=== PATIENT | female | born 1965 | race Caucasian/White ===

== ENCOUNTER → 2017-09-27 | Outpatient (CLI) | payer BC | END | disposition home or self-care (01) | LOC: C.PAPS 14:35 | PROVIDERS: ATTEND Obstetrics & Gynecology | DX: Z01.419 Encounter for gynecological examination (general) (routine) without abnormal findings (principal) ==

== ENCOUNTER 2023-09-24 08:58 | Inpatient (IN) ==
[2023-09-24] MEDS ORDERED: HYDROmorphone INJ 1 MG/ML SYRINGE IV PRN (09:33)
[2023-09-24] MEDS ORDERED: ONDANSETRON INJ 2 MG/ML 2 ML VIAL IV STA ×2 (09:33→12:37)
[2023-09-24] MEDS ORDERED: SODIUM CHLORIDE 0.9% 1,000 ML IV ONE ×2 (09:39→12:37)
[2023-09-24 09:46] LABS: Basophils # (auto) 0.05 K/uL (0.00-0.20); Basophils % (auto) 0.3 %; Eosinophils # (auto) 0.07 K/uL (0.00-0.50); Eosinophils % (auto) 0.5 %; Hematocrit (blood only) 39.1 % (37.0-47.0); Hemoglobin 12.7 g/dl (12.0-16.0); Immature Granulocytes # (auto) 0.03 K/uL (0.01-0.20); Immature Granulocytes % (auto) 0.2 %; Lymphocytes % (auto) 9.7 %; Mean Corpuscular Hemoglobin 29.7 pg (25.0-34.0); Mean Corpuscular Hgb Conc 32.5 g/dL (32.0-36.0); Mean Corpuscular Volume 91.6 fL (80.0-100.0); Mean Platelet Volume 9.7 fL (9.4-12.4); Monocytes # (auto) 1.19 K/uL (0.11-0.59); Monocytes % (auto) 8.3 %; Neutrophils # (auto) 11.64 K/uL (1.40-6.50); Platelet Count 303 K/uL (130-400); RDW Coefficient of Variation 12.3 % (11.5-14.5); RDW Standard Deviation 41.4 fL (36.4-46.3); Red Blood Count 4.27 M/uL (4.20-5.40); White Blood Count 14.38 K/ul (4.8-10.8)
--- NOTE | 2023-09-24 09:55 | Emergency Department Note ---
Impression & Plan Gastric perforation, Gastric wall thickening, Abnormal CT scan, Epigastric abdominal pain ED Provider Note Name: SEBASTIEN GARCIA Age: 57 Sex: Female Arrives Via: Walk-In Informant: Patient, ED Provider: Yves Jennings MD Chief Complaint: Abdominal pain Impression: As per impressions above Medical Decision Making: Pleasant 57-year-old female without significant past medical history arrives for evaluation of right upper quadrant/epigastric pain over the last several weeks to months. Rapidly worsening the last few days though. She has been on outpatient antacids for some time without improvement. On examination she has significant tenderness palpation of the right upper quadrant and epigastric region. An ultrasound is essentially unremarkable other than a questionable mass. A CT of the abdomen pelvis was obtained which reveals large amount of inflammation and fluid collection around the stomach. Discussed with radiologist most likely is a perforated gastric ulcer though could possibly be a mass. Fluid collection appears contained at this time. Discussed with general surgery and GI who advised hospitalization monitoring on IV antibiotics IV Protonix. I discussed this with patient she is comfortable with this plan. She was kept comfortable throughout stay with IV pain medications. She was given some IV fluids. At time of hospitalization I do not feel patient is septic. She is tachycardic from the amount of pain she is having a mild dehydration. I do not feel this is consistent with severe sepsis or septic shock. Triage/Nursing Notes reviewed by Me Differential:Cholecystitis, choledocholithiasis, pancreatitis, gastric ulcer, ischemia, perforation, aortic pathology, DVT amongst many other pathologies considered Vital Signs: reviewed and remarkable for mild tachycardia Interventions: Normal saline bolus 1 L IV x2, Zosyn IV, Dilaudid IV x2, pantoprazole 80 mg IV, zofran IV Labs:ED labs Reviewed by me and remarkable for mildly elevated white blood cell count Imaging:CT of the abdomen pelvis with IV contrast. As per my informal patient there is a fluid collection next to the stomach with significant surrounding inflammatory changes. There is no free air appreciated or free fluid throughout the abdomen. There is no evidence of bowel obstruction. Radiologist confirmed findings and note concern for possible mass versus perforated gastric ulcer. EKG:As per my interpretation. Indication epigastric pain. Sinus tach at 106 bpm without ectopy nor ischemia. QTc of 451. There are no previous EKGs for comparison Cardiac/Tele Monitoring: Cardiac Monitoring: An Order was placed for continuous cardiac monitoring. The monitor shows a rate of 90 with a normal sinus rhythm. Consults:Dr Bae Gen Surg advised GI evaluation. Dr. Reyes of gastroenterology advised hospitalization antibiotics and IV Protonix. Dr. Alvarez hospitalist consulted for further management. Plan: Disposition:Hospitalization. Condition: Good History of Present Illness: 57-year-old female arrives for evaluation of abdominal pain. Patient states that she had several months of gradually worsening epigastric right upper quadrant abdominal pain. Over the last few days/weeks significant worsening. Associated with nausea vomiting, mild diarrhea, increasing pain. Patient notes she was seen at [facility] several weeks ago for abdominal pain and ultrasound at that point was negative. She had a heart catheterization 2 months ago for abnormal cardiac work-up. Fortunately heart catheterization was negative for any evidence of significant atherosclerosis. Patient has been using nausea medicine and antacids regularly for the last 2 weeks without improvement. Family has a significant history of gallbladder dysfunction and infections. Past Medical History: No significant past medical history Home Medications: Antacid and Zofran medication Allergies: No known drug allergy Vitals:Blood Pressure: 131/84, Pulse 107, RR 20, T 36.9C, O2 98% on RA Physical Exam: GENERAL: Patient is uncomfortable appearing and in moderate distress. RESPIRATORY: No dyspnea. Clear to auscultation and equal bilaterally. CARDIOVASCULAR: Tachy.No murmur appreciated. GASTROINTESTINAL: Moderate right upper quadrant tenderness palpation with some guarding. Mild epigastric tenderness palpation. No rebound or peritonitis. EXTREMITIES: Normal motion all extremities, no cyanosis, no edema. NEUROLOGIC: Alert and oriented. No focal neurologic deficits appreciated SKIN: No rash, no jaundice, no diaphoresis. PSYCH: Appropriate GCS: 15 ED Course: Times/Reassessments: Patient is vastly improved with IV pain medications and fluids. Heart rate is come down nicely. She is breathing comfortably. She is not having any fevers or chills. Patient is on board for plan for admission. She is aware of the likely perforation but the chance that there may be some sort of gastric mass involved as well. Yves Jennings MD Past Med/Surg History Medical History HTN (hypertension) Surgical History History of cardiac catheterization 07/2023. [facility] [place] Family History Mother Hypertension Coronary heart disease fatal OR age 60 Social History Smoking Status: Never smoker Hx Alcohol Use: Yes Alcohol type: hard liquor Hx Substance Use: No Preferred Language: Gabonese Communication Ability: Effective Vocational Psychologist Required: No Beliefs That Will Affect Care: None Current Living Situation: Spouse Feels Safe at Home: Yes Assistive Devices: Glasses Allergies Allergies Allergy/AdvReac Type Severity Reaction Status Date / Time Sulfa (Sulfonamide Allergy Unknown Unknown Unverified 09/24/23 10:58 Antibiotics) Home Meds Home Medications Medication Instructions Recorded Confirmed ascorbic acid (vitamin C) 500 mg 500 mg PO DAILY 09/24/23 09/24/23 capsule,extended release (Vitamin C) aspirin 81 mg tablet 81 mg PO DAILY 09/24/23 09/24/23 cholecalciferol (vitamin D3) 50 50 mcg PO DAILY 09/24/23 09/24/23 mcg (2,000 unit) tablet (Vitamin D3) losartan 50 mg tablet 50 mg PO QAM 09/24/23 09/24/23 metoprolol succinate 25 mg 25 mg PO HS 09/24/23 09/24/23 tablet,extended release 24 hr ondansetron 8 mg disintegrating 8 mg PO Q8H PRN NAUSEA/VOMITING 09/24/23 09/24/23 tablet zinc 100 mg tablet 100 mg PO DAILY 09/24/23 09/24/23 Results & Data (ED) Vital Signs Vital Signs - 24 hr 09/24/23 09:05 09/24/23 09:37 09/24/23 09:52 Temperature 36.9 C Temperature Source Temporal Artery Scan Pulse Rate 118 H 107 H Respiratory Rate 20 Respiratory Effort / Characteristics Non-Labored Spontaneous Respiratory Depth Normal Respiratory Pattern Regular Blood Pressure 131/84 Blood Pressure Mean 99 Blood Pressure Position Sitting Pulse Oximetry 98 98 Oxygen Delivery Method Room Air Room Air Sepsis Recent Fever Within 48 Hours No Sepsis New/Unexplained Change in Mental Status No Sepsis Action Taken by Nursing No Action Required Laboratory Data 09/25/23 04:49 09/25/23 04:49 Lab Results 09/24/23 Range/Units 09:34 WBC 14.38 H (4.8-10.8) K/ul RBC 4.27 (4.20-5.40) M/uL Hgb 12.7 (12.0-16.0) g/dl Hct 39.1 (37.0-47.0) % MCV 91.6 (80.0-100.0) fL MCH 29.7 (25.0-34.0) pg MCHC 32.5 (32.0-36.0) g/dL RDW Std Deviation 41.4 (36.4-46.3) fL RDW Coeff of Brenton 12.3 (11.5-14.5) % Plt Count 303 (130-400) K/uL MPV 9.7 (9.4-12.4) fL Immature Gran % (Auto) 0.2 % Neut % (Auto) 81.0 % Lymph % (Auto) 9.7 % Will % (Auto) 8.3 % Eos % (Auto) 0.5 % Baso % (Auto) 0.3 % Neut # (Auto) 11.64 H (1.40-6.50) K/uL Lymph # (Auto) 1.40 (1.20-3.40) K/uL Will # (Auto) 1.19 H (0.11-0.59) K/uL Eos # (Auto) 0.07 (0.00-0.50) K/uL Baso # (Auto) 0.05 (0.00-0.20) K/uL Immature Gran # (Auto) 0.03 (0.01-0.20) K/uL Sodium 136 (136-145) mmol/L Potassium 3.9 (3.5-5.1) mmol/L Chloride 101 (98-107) mmol/L Carbon Dioxide 22 (21-32) mmol/L Anion Gap 13 H (3-11) BUN 13 (6-23) mg/dl Creatinine 0.84 (0.6-1.2) mg/dl Est Cr Clr Drug Dosing 92.4 ml/min Est GFR ( Amer) 89.4 ml/min Est GFR (Non-Af Amer) 77.2 ml/min BUN/Creatinine Ratio 15.5 (10-20) Glucose 82 (70-99(Fasting)) mg/dl Calcium 9.4 (8.6-10.3) mg/dl Total Bilirubin 0.6 (0.2-1.0) mg/dl AST 24 (13-39) U/L ALT 25 (7-52) U/L Alkaline Phosphatase 97 (34-104) U/L Total Protein 7.9 (6.0-8.3) gm/dl Albumin 3.9 (3.4-5.0) gm/dl Globulin 4.0 (2.5-4.0) gm/dl Albumin/Globulin Ratio 1.0 (0.9-2) Lipase 9 L (11-82) U/L Administered Medications Hydromorphone HCl (Hydromorphone Inj 0.5 Mg/0.5 Ml Syr) 0.5 mg IV Q6H PRN PRN Reason: Moderate Pain (Scale 4, 5, 6) Stop: 10/08/23 17:47 Last Admin: 09/25/23 06:08 Dose: 0.5 mg Documented By: RONA Acetaminophen (Ofirmev) 1,000 mg in 100 mls @ 400 mls/hr IV Q8H PRN PRN Reason: Pain or Fever Stop: 09/27/23 17:47 Last Infusion: 09/25/23 00:20 Dose: Infused Documented By: Admin: 09/24/23 23:45 Dose: 400 mls/hr Documented By: RONA Dextrose/Sodium Chloride (D5w And Nss) 1,000 mls @ 80 mls/hr IV .[id number] MICHAELLE Stop: 09/25/23 18:47 Last Admin: 09/25/23 06:21 Dose: 80 mls/hr Documented By: Infusion: 09/25/23 06:21 Dose: Infused Documented By: Admin: 09/24/23 18:40 Dose: 80 mls/hr Documented By: ROOSEVELT Pantoprazole Sodium 40 mg/ (Dextrose) 100 mls @ 20 mls/hr IV Q5H MICHAELLE Stop: 10/24/23 17:47 Last Admin: 09/25/23 14:10 Dose: 8 mg/hr, 20 mls/hr Documented By: Infusion: 09/25/23 13:32 Dose: Infused Documented By: Admin: 09/25/23 08:32 Dose: 8 mg/hr, 20 mls/hr Documented By: Infusion: 09/25/23 08:32 Dose: Infused Documented By: Admin: 09/25/23 03:40 Dose: 8 mg/hr, 20 mls/hr Documented By: Infusion: 09/25/23 03:40 Dose: Infused Documented By: Admin: 09/25/23 00:06 Dose: 8 mg/hr, 20 mls/hr Documented By: Infusion: 09/24/23 23:57 Dose: Infused Documented By: Admin: 09/24/23 18:57 Dose: 8 mg/hr, 20 mls/hr Documented By: ROOSEVELT Piperacillin Sod/Tazobactam (Sod 4.5 gm/ Dextrose) 100 mls @ 25 mls/hr IV Q8H MICHAELLE; Protocol Stop: 10/04/23 17:47 Last Infusion: 09/25/23 15:13 Dose: Infused Documented By: Admin: 09/25/23 11:18 Dose: 25 mls/hr Documented By: Infusion: 09/25/23 07:46 Dose: Infused Documented By: Admin: 09/25/23 03:40 Dose: 25 mls/hr Documented By: Infusion: 09/25/23 01:12 Dose: Infused Documented By: Admin: 09/24/23 20:58 Dose: 25 mls/hr Documented By: RONA Losartan Potassium (Losartan Potassium 50 Mg Tab) 50 mg PO QAM MICHAELLE Stop: 10/25/23 08:59 Last Admin: 09/25/23 08:32 Dose: 50 mg Documented By: BEVERLY Metoprolol Succinate (Metoprolol Succ 25mg Ext Rel Tab) 25 mg PO HS [facility] Stop: 10/24/23 20:59 Last Admin: 09/24/23 21:07 Dose: 25 mg Documented By: RONA Ondansetron HCl (Ondansetron Inj 2 Mg/Ml 2 Ml Vial) 4 mg IV Q6H PRN PRN Reason: Nausea Stop: 10/24/23 17:47 Last Admin: 09/24/23 21:00 Dose: 4 mg Documented By: RONA Discontinued Medications Hydromorphone HCl (Hydromorphone Inj 1 Mg/Ml Syringe) 1 mg IV Q15M PRN PRN Reason: Pain Stop: 10/08/23 09:32 Last Admin: 09/24/23 10:02 Dose: 1 mg Documented By: KELLY Co-signed By: AM Hydromorphone HCl (Hydromorphone Inj 1 Mg/Ml Syringe) 1 mg IV NOW STA Stop: 09/24/23 12:38 Last Admin: 09/24/23 12:48 Dose: 1 mg Documented By: ACC Sodium Chloride (Nss) 1,000 mls @ 999 mls/hr IV .Q1H1M ONE Stop: 09/24/23 10:39 Last Infusion: 09/24/23 11:59 Dose: Infused Documented By: Admin: 09/24/23 10:02 Dose: 999 mls/hr Documented By: KELLY Co-signed By: AM Sodium Chloride (Nss) 1,000 mls @ 999 mls/hr IV .Q1H1M ONE Stop: 09/24/23 13:37 Last Infusion: 09/24/23 14:02 Dose: Infused Documented By: Admin: 09/24/23 12:49 Dose: 999 mls/hr Documented By: ACC Pantoprazole Sodium 80 mg/ (Dextrose) 120 mls @ 480 mls/hr IV ONE STA Stop: 09/24/23 12:59 Last Infusion: 09/24/23 14:37 Dose: Infused Documented By: Admin: 09/24/23 13:57 Dose: 480 mls/hr Documented By: ACC Piperacillin Sod/Tazobactam Sod (Zosyn) 4.5 gm in 100 mls @ 200 mls/hr IV NOW ONE Stop: 09/24/23 13:19 Last Infusion: 09/24/23 14:02 Dose: Infused Documented By: Admin: 09/24/23 13:17 Dose: 200 mls/hr Documented By: ACC Ioversol (Optiray 320 100ml) 88 ml IV ONCE ONE Stop: 09/24/23 11:54 Last Admin: 09/24/23 11:53 Dose: 88 ml Documented By: JON Ondansetron HCl (Ondansetron Inj 2 Mg/Ml 2 Ml Vial) 4 mg IV NOW STA Stop: 09/24/23 09:34 Last Admin: 09/24/23 10:02 Dose: 4 mg Documented By: KELLY Co-signed By: SAM Ondansetron HCl (Ondansetron Inj 2 Mg/Ml 2 Ml Vial) 4 mg IV NOW STA Stop: 09/24/23 12:38 Last Admin: 09/24/23 12:48 Dose: 4 mg Documented By: ACC Discharge Plan Visit Data Chief Complaint: Abdominal Pain Stated Complaint: ABD PAIN,NAUSEA,VOMITING,HX GALLBLADDER ISSUES ED Provider: Yves Jennings ED Midlevel Provider: Jerri Sanchez Discharge Problem: Gastric perforation, Gastric wall thickening, Abnormal CT scan, Epigastric abdominal pain Patient Disposition: Admitted As Inpatient Discharge Instructions Interventions: ED Discharge Assessment Last Done: 09/24/23 18:41
[2023-09-24 10:04] LABS: Albumin Level 3.9 gm/dl (3.4-5.0); BUN Creatinine Ratio 15.5 (10-20); Bilirubin,Total 0.6 mg/dl (0.2-1.0); Calcium 9.4 mg/dl (8.6-10.3); Creatinine Clr Calc Pharmacy 92.4 ml/min; Est GFR (African American) 89.4 ml/min; Est GFR (Non-African American) 77.2 ml/min; Potassium 3.9 mmol/L (3.5-5.1); Total Protein 7.9 gm/dl (6.0-8.3)
--- NOTE | 2023-09-24 10:29 | Emergency Department Note ---
ED Visit Note I personally performed a history and examined the patient in conjunction with Dr. Jennings. Additional information regarding the history, physical, assessment, and plan were discussed with supervising attending physician and are noted in their ED visit note. . Resident Activity Tracking Resident Involvement: Resident Care Provided Care Provided: Adult ED
--- NOTE | 2023-09-24 11:10 | Ultrasound Report ---
US gallbladder CLINICAL HISTORY: Abdominal pain. Rutherford sign positive. COMPARISON STUDY: No previous studies for comparison. FINDINGS: Liver is sonographically normal. There is borderline dilatation of the common bile duct, me asuring 7 mm. No intrahepatic biliary ductal dilatation is identified. There are no gallstones. There is no gallbladder wall thickening. No sonographic Rutherford sign was elicited. The gallbladder is mildl y distended. Pancreatic body is normal. Head and tail are obscured. There is a hypoechoic focus anter ior to the pancreas. This measures approximately 7.6 cm in transverse dimension. IMPRESSION: 1. No gallstones. No evidence for acute cholecystitis. 2. Borderline dilatation of the common bile duct which could be correlated with liver function tests. 3. Hypoechoic focus anterior to the pancreas measuring approximately 7.6 cm in transverse dimension. This may be artifactual and represent bowel or the stomach. However, a CT of the abdomen with IV cont rast to exclude a mass is recommended. ACT 112: Negative or not required by law. Electronically signed by: Kike Gavin M.D. 09/24/2023 11:08 AM
[2023-09-24] MEDS ORDERED: OPTIRAY 320 100ml IV ONE (11:53)
--- NOTE | 2023-09-24 12:15 | CT Scan Report ---
CT OF THE ABDOMEN WITH IV CONTRAST CLINICAL HISTORY: Abnormal right upper quadrant ultrasound. Evaluate for pancreatic mass. COMPARISON STUDY: Right upper quadrant ultrasound performed earlier today. TECHNIQUE: Axial images of the abdomen were obtained following intravenous injection of 88 cc of Opti ray 320 IV. Automated exposure control was utilized for the study. A dose lowering technique was uti lized adhering to the principles of ALARA. FINDINGS: Lung bases are unremarkable. No pneumatosis, free air or portal venous gas is present. The liver, spleen, adrenal glands, right kidney and pancreas are normal. A fat-containing 1.1 cm lesion w ithin the upper pole the left kidney represents an angiomyolipoma. There is no hydronephrosis. There is no biliary or pancreatic ductal dilatation. The caliber and wall thickness of visualized small and large bowel are normal. Note is made of significant wall thickening of the gastric antrum and pyloru s with apparent shouldering. There is moderate adjacent inflammation extending into the omentum. Ther e is a multiloculated rim-enhancing 4 x 3.8 cm density along the inferior aspect of the distal stomac h on axial image 143 of 221. There is no extraluminal gas. No additional fluid collections are presen t. There is a prominent mitul hepatis lymph node on image 91 measures 1.9 x 1.1 cm. A few small lymph nodes inferior to the stomach are present. Major vasculature is patent. IMPRESSION: 1. Significant wall thickening of the gastric antrum and pylorus with apparent shouldering. A gastric neoplasm is the diagnosis of exclusion. However, gastritis could have a similar imaging appearance. Moderate perigastric inflammation extending into the mesentery and a 4 x 3.8 cm multiloculated rim-en hancing collection. These findings suggest a contained perforation with developing abscess formation which corresponds to the finding on ultrasound. No extraluminal gas. GI or Surgical consultation is r ecommended. 2. Indeterminate slightly enlarged mitul hepatis lymph node. A few prominent perigastric lymph nodes which may be reactive but should be assessed on follow-up exams. 3. No pancreatic abnormality. ACT 112: Negative or not required by law. Electronically signed by: Kike Gavin M.D. 09/24/2023 12:13 PM
[2023-09-24] MEDS ORDERED: HYDROmorphone INJ 1 MG/ML SYRINGE IV STA (12:37)
[2023-09-24] MEDS ORDERED: PANTOprazole 80 MG in DEXTROSE 5% 100 ML IV STA (12:45)
[2023-09-24] MEDS ORDERED: PIPERACILLIN/TAZOBACTAM 4.5 GM/100 ML BAG IV ONE (12:50)
--- NOTE | 2023-09-24 13:23 | History & Physical Report ---
Date of Service September 24, 2023 Assessment & Plan (1) Abdominal pain: (2) Gastric wall thickening: (3) Gastric perforation: Plan: Gastric perforation with abscess formation. DDX: gastric ulcer with perforation, gastric neoplasm In ER patient afebrile, HR 118 down to 105 after 2L NSS, BP stable WBC: 14 with left shift In ER given zosyn, Protonix bolus, Zofran, Dilaudid Blood cultures pending. Were obtained after initial antibiotics. IVF NPO Zosyn General surgery consult. ER physician spoke with Dr Bae, recommends initial conservative treatment, possible need for exploratory surgery GI consult, ER physician spoke with vocational director CBC, CMP in am (4) HTN (hypertension): Plan: Continue losartan, metoprolol succinate DVT Prophylaxis SCDs Full Code as per discussion with pt Follows with Jorge Luis Gil PA-C in [place] for routine care Pt was seen and care coordinated with Dr Alvarez. See addendum History of Present Illness Chief Complaint: Abdominal pain Primary Care Provider: Jorge Luis Jeffery Patient is 57 y/o F with PMH HTN presented to ER with c/o abdominal pain. History obtained from patient and patient's spouse. Patient had episode of RUQ abdominal pain, nausea and vomiting in 07/2023 and was seen at [facility] ER and she reports a "negative" RUQ ultrasound. States was started on antacids and symptoms resolved in approximately 3 days. Had another episode of RUQ abdominal pain about a month ago that self resolved. Patient states for past 10 days has had almost constant abdominal discomfort and nausea. Pain sometimes to epigastric region but mostly to RUQ. Pain worsened the past couple of days and is aggravated with any type of movement. Yesterday and today at 02:00 had episodes of vomiting brown color emesis. No further vomiting since. Has had limited oral intake secondary to nausea and pain. Has not been taking temperature. Freedom cold a couple of days ago but denies diaphoresis or chills recently. Has been taking Tylenol for abdominal pain with minimal relief. Saw PCP recently and was set up to have HIDA scan in near future for suspected gallbladder dysfunction. Reports was previously drinking ETOH almost daily. Past several months drinking 2 drinks of liquor 2-3 days a week. Drinks 2 cups coffee daily. Denies using NSAIDs. Takes 81mg aspirin daily. Patient states in 07/2023 had cardiac cath for abnormal stress test. She states the cardiac cath showed nonobstructive arteries. Denies hematemesis, melena, hematochezia, coffee ground emesis, diarrhea, FELIX, dizziness, syncope, neck pain, CP, SOB, palpitations, cough, sore throat, rhinorrhea, extremity weakness, extremity edema, rashes, urinary symptoms. Allergies Allergy/AdvReac Type Severity Reaction Status Date / Time Sulfa (Sulfonamide Allergy Unknown Unknown Unverified 09/24/23 10:58 Antibiotics) Home Medications Medication Instructions Recorded Confirmed Type ascorbic acid (vitamin C) 500 mg 500 mg PO DAILY 09/24/23 09/24/23 History capsule,extended release (Vitamin C) aspirin 81 mg tablet 81 mg PO DAILY 09/24/23 09/24/23 History cholecalciferol (vitamin D3) 50 50 mcg PO DAILY 09/24/23 09/24/23 History mcg (2,000 unit) tablet (Vitamin D3) losartan 50 mg tablet 50 mg PO QAM 09/24/23 09/24/23 History metoprolol succinate 25 mg 25 mg PO HS 09/24/23 09/24/23 History tablet,extended release 24 hr ondansetron 8 mg disintegrating 8 mg PO Q8H PRN NAUSEA/VOMITING 09/24/23 09/24/23 History tablet zinc 100 mg tablet 100 mg PO DAILY 09/24/23 09/24/23 History Past Med/Surg History Medical History HTN (hypertension) Surgical History History of cardiac catheterization 07/2023. [facility] [place] Family History Mother Hypertension Coronary heart disease fatal [place] age 60 Social History Smoking Status: Never smoker Hx Alcohol Use: Yes Hx Substance Use: No Preferred Language: Citizen Of [place] Feels Safe at Home: Yes Review of Systems Review of Systems: All systems reviewed & are unremarkable except as noted in HPI & below Physical Exam Physical Exam: General: no distress currently, non-toxic appearing, overweight female Head: normocephalic, atraumatic Eyes: conjunctiva non-injected, anicteric ENT: normal inspection external ears, nose, mucous membranes mildly dry Neck: supple, trachea midline Lungs: clear, no respiratory distress, no wheezing/rhonchi/rales CV: tachycardia, rate 104, no murmur, no pretibial edema Abd: normal BS, soft, +tenderness to palpation RUQ with guarding, +mild tenderness to palpation epigastric without guarding Ext: no cyanosis, no calf tenderness Neuro: A&O x 3, no focal deficits noted, normal affect Skin: warm, dry Results & Data Results & Data Vital Signs (Past 12 Hours) Vital Signs Temp Pulse Pulse Resp BP BP Pulse Ox 09/24/23 12:18 105 H 16 144/90 H 94 09/24/23 12:00 105 H 15 95 09/24/23 11:00 100 H 17 95 09/24/23 10:01 128/84 09/24/23 10:01 99 H 18 96 09/24/23 10:00 98 H 20 96 09/24/23 09:52 107 H 09/24/23 09:37 98 09/24/23 09:30 105 H 17 96 09/24/23 09:30 122/76 09/24/23 09:27 107 H 20 96 09/24/23 09:27 121/99 09/24/23 09:05 36.9 C 118 H 20 131/84 98 O2 Del Method 09/24/23 12:18 Room Air 09/24/23 12:00 09/24/23 11:00 09/24/23 10:01 09/24/23 10:01 09/24/23 10:00 09/24/23 09:52 09/24/23 09:37 Room Air 09/24/23 09:30 09/24/23 09:30 09/24/23 09:27 09/24/23 09:27 09/24/23 09:05 Room Air Laboratory Results Short CBC 09/24/23 Range/Units 09:34 WBC 14.38 H (4.8-10.8) K/ul Hgb 12.7 (12.0-16.0) g/dl Hct 39.1 (37.0-47.0) % Plt Count 303 (130-400) K/uL BMP 09/24/23 09:34 Sodium 136 Potassium 3.9 Chloride 101 Carbon Dioxide 22 BUN 13 Creatinine 0.84 Glucose 82 Calcium 9.4 Liver Function 09/24/23 Range/Units 09:34 Total Bilirubin 0.6 (0.2-1.0) mg/dl AST 24 (13-39) U/L ALT 25 (7-52) U/L Alkaline Phosphatase 97 (34-104) U/L Albumin 3.9 (3.4-5.0) gm/dl Diagnostic Findings Gallbladder Ultrasound 09/24/23 09:33 US gallbladder CLINICAL HISTORY: Abdominal pain. Rutherford sign positive. COMPARISON STUDY: No previous studies for comparison. FINDINGS: Liver is sonographically normal. There is borderline dilatation of the common bile duct, measuring 7 mm. No intrahepatic biliary ductal dilatation is identified. There are no gallstones. There is no gallbladder wall thickening. No sonographic Rutherford sign was elicited. The gallbladder is mildly distended. Pancreatic body is normal. Head and tail are obscured. There is a hypoechoic focus anterior to the pancreas. This measures approximately 7.6 cm in transverse dimension. IMPRESSION: 1. No gallstones. No evidence for acute cholecystitis. 2. Borderline dilatation of the common bile duct which could be correlated with liver function tests. 3. Hypoechoic focus anterior to the pancreas measuring approximately 7.6 cm in transverse dimension. This may be artifactual and represent bowel or the stomach. However, a CT of the abdomen with IV contrast to exclude a mass is recommended. ACT 112: Negative or not required by law. Electronically signed by: Kike Gavin M.D. 09/24/2023 11:[address] 09/24/23 11:15 CT OF THE ABDOMEN WITH IV CONTRAST CLINICAL HISTORY: Abnormal right upper quadrant ultrasound. Evaluate for pancreatic mass. COMPARISON STUDY: Right upper quadrant ultrasound performed earlier today. TECHNIQUE: Axial images of the abdomen were obtained following intravenous injection of 88 cc of Optiray 320 IV. Automated exposure control was utilized for the study. A dose lowering technique was utilized adhering to the principles of ALARA. FINDINGS: Lung bases are unremarkable. No pneumatosis, free air or portal venous gas is present. The liver, spleen, adrenal glands, right kidney and pancreas are normal. A fat-containing 1.1 cm lesion within the upper pole the left kidney represents an angiomyolipoma. There is no hydronephrosis. There is no biliary or pancreatic ductal dilatation. The caliber and wall thickness of visualized small and large bowel are normal. Note is made of significant wall thickening of the gastric antrum and pylorus with apparent shouldering. There is moderate adjacent inflammation extending into the omentum. There is a multiloculated rim-enhancing 4 x 3.8 cm density along the inferior aspect of the distal stomach on axial image 143 of 221. There is no extraluminal gas. No additional fluid collections are present. There is a prominent mitul hepatis lymph node on image 91 measures 1.9 x 1.1 cm. A few small lymph nodes inferior to the stomach are present. Major vasculature is patent. IMPRESSION: 1. Significant wall thickening of the gastric antrum and pylorus with apparent shouldering. A gastric neoplasm is the diagnosis of exclusion. However, gastritis could have a similar imaging appearance. Moderate perigastric inflammation extending into the mesentery and a 4 x 3.8 cm multiloculated rim- enhancing collection. These findings suggest a contained perforation with developing abscess formation which corresponds to the finding on ultrasound. No extraluminal gas. GI or Surgical consultation is recommended. 2. Indeterminate slightly enlarged mitul hepatis lymph node. A few prominent p erigastric lymph nodes which may be reactive but should be assessed on follow-up exams. 3. No pancreatic abnormality. ACT 112: Negative or not required by law. Electronically signed by: Kike Gavin M.D. 09/24/2023 12:13 PM Supervising Physician Co-Signing Physician Notes Attending addendum: The patient was seen and examined in emergency room in presence of the She has been complaining of epigastric/right upper quadrant pain for about 1 month She has had repeated visits to the family medicine and was told that may have gallbladder disease/gallstones She is here today with increasing abdominal pain associated with nausea and vomiting No NSAID use except regular aspirin On examination Very anxious and is in pain which is reasonably controlled with IV pain medications Tachycardic with blood pressure on the upper side at 144/90 Chestclear to auscultate bilaterally HeartS1, S2 regular Abdomensoft, tender in the epigastrium and right upper quadrant without guarding and rigidity, bowel sound present Extremities negative for any edema Her admission labs, EKG and imaging studies reviewed Has gastric perforation likely secondary to gastric ulcer to rule out malignancy We will keep her n.p.o., pain medications and IV fluid and IV antibiotic Surgery and GI have been consulted Agree with assessment and plan as outlined above by ALISA Cerrato Dr
--- NOTE | 2023-09-24 14:10 | Surgery Consultation ---
Date of Consultation September 24, 2023 Assessment & Plan (1) Gastric mass: Assessment: Patient is a 57 years old female who presented to ED with a 2-month history epigastric and right upper quadrant pain associated with nausea and vomiting. Patient had a CT scan diagnosis of possible gastric neoplasm, possibl e with perforation containing abscess. size 4x3.8 cm, WBC 14,000. plan: Based on the patient history and physical exam CT scan finding, recommend residential treatment counselor GI for possible EGD biopsy gastric neoplasm to rule out gastric malignancy ulcer or mass. Patient needs transfer to higher level care of oncology surgeon consult if confirmed diagnosis gastric malignancy or patient condition getting worse. Start IV Zosyn. control pain. N.p.o.. IV fluid. Repeat the lab tomorrow. Conservative treatment now. Patient may need exploratory laparotomy if patient condition getting worse. Patient prefer go to a higher level care if her condition getting worse. pt and her Agreed with the plan. I answered all questions. Discussion with hospitalist who will admit the patient to the hospital. Thanks. History of Present Illness Reason for Consultation: abdominal pain Requesting Physician: Yves Love MD History of Present Illness CC: Abdominal pain HPI: Patient is a 57 years old female who presented to ED with 2 months history epigastric and right upper quadrant pain. Associated with some nausea and vomiting. Patient went to [facility] ER for epigastric pain in July this year. Patient had a study for gallbladder disease which was negative. And 2 weeks later patient saw her PCP. There was a total of the possible gallbladder attack. Over the last few weeks the patient felt the pain is gett ing worse. The pain is dull located epigastric and right upper quadrant area. There is some mild diarrhea. Patient denies vomiting any blood, No black stool, no fever, No chills, No back pain, no weight loss. Patient has a cardiac has cardiac cath for work up her chest pain 2 months ago, patient was negative. Patient had a ultrasound today which is negative for gallbladder disease. Patient had a CT scan of the abdomen + Pevlic today in the ER. IMPRESSION: 1. Significant wall thickening of the gastric antrum and pylorus with apparent shouldering. A gastric neoplasm is the diagnosis of exclusion. However, gastritis could have a similar imaging appearance. Moderate perigastric inflammation extending into the mesentery and a 4 x 3.8 cm multiloculated rim- enhancing collection. These findings suggest a contained perforation with developing abscess formation which corresponds to the finding on ultrasound. No extraluminal gas. GI or Surgical consultation is recommended. Allergies Allergy/AdvReac Type Severity Reaction Status Date / Time Sulfa (Sulfonamide Allergy Unknown Unknown Unverified 09/24/23 10:58 Antibiotics) Home Medications Medication Instructions Recorded Confirmed Type ascorbic acid (vitamin C) 500 mg 500 mg PO DAILY 09/24/23 09/24/23 History capsule,extended release (Vitamin C) aspirin 81 mg tablet 81 mg PO DAILY 09/24/23 09/24/23 History cholecalciferol (vitamin D3) 50 50 mcg PO DAILY 09/24/23 09/24/23 History mcg (2,000 unit) tablet (Vitamin D3) losartan 50 mg tablet 50 mg PO QAM 09/24/23 09/24/23 History metoprolol succinate 25 mg 25 mg PO HS 09/24/23 09/24/23 History tablet,extended release 24 hr ondansetron 8 mg disintegrating 8 mg PO Q8H PRN NAUSEA/VOMITING 09/24/23 09/24/23 History tablet zinc 100 mg tablet 100 mg PO DAILY 09/24/23 09/24/23 History Patient History Medical History (Updated 09/24/23 @ 14:26 by Tamara Bae MD) HTN (hypertension) Surgical History (Updated 09/24/23 @ 13:59 by Catherine Collier PA-C) History of cardiac catheterization 07/2023. PH [place] Family History (Updated 09/24/23 @ 13:58 by Catherine Collier PA-C) Mother Hypertension Coronary heart disease fatal [place] age 60 Social History Smoking Status: Never smoker Hx Alcohol Use: Yes Hx Substance Use: No Preferred Language: [place] Feels Safe at Home: Yes Review of Systems Constitutional: as per Subjective / HPI Eyes: as per Subjective / HPI Respiratory: as per Subjective / HPI Cardiovascular: Additional Comments: HTN Gastrointestinal: as per Subjective / HPI Genitourinary: as per Subjective / HPI Neurologic: as per Subjective / HPI Psychiatric: as per Subjective / HPI Endocrine: as per Subjective / HPI Hematologic / Lymphatic: as per Subjective / HPI Physical Exam Constitutional: comfortable at bed, no distress Eyes: PERRL, conjunctivae normal, anicteric sclerae Neck: trachea midline, no thyromegaly Respiratory: normal respiratory effort, lungs clear to auscultation Cardiovascular: RRR, no murmur, no edema Gastrointestinal (Abdomen): pt said she just got pain medicine. mild tenderness at RUQ are, no rebound pain, no distend, BS +. Musculoskeletal: no cyanosis or clubbing, extremities motor strength 5/5 Neurologic: patellar DTR's 2+ bilat, sensation intact Psychiatric: A+Ox3, euthymic affect Results & Data Vital Signs (Past 12 Hours) Vital Signs Temp Pulse Pulse Resp BP BP Pulse Ox 09/24/23 12:18 105 H 16 144/90 H 94 09/24/23 12:00 105 H 15 95 09/24/23 11:00 100 H 17 95 09/24/23 10:01 128/84 09/24/23 10:01 99 H 18 96 09/24/23 10:00 98 H 20 96 09/24/23 09:52 107 H 09/24/23 09:37 98 09/24/23 09:30 105 H 17 96 09/24/23 09:30 122/76 09/24/23 09:27 107 H 20 96 09/24/23 09:27 121/99 09/24/23 09:05 36.9 C 118 H 20 131/84 98 O2 Del Method 09/24/23 12:18 Room Air 09/24/23 12:00 09/24/23 11:00 09/24/23 10:01 09/24/23 10:01 09/24/23 10:00 09/24/23 09:52 09/24/23 09:37 Room Air 09/24/23 09:30 09/24/23 09:30 09/24/23 09:27 09/24/23 09:27 09/24/23 09:05 Room Air Laboratory Results Lab Results 09/24/23 Range/Units 09:34 WBC 14.38 H (4.8-10.8) K/ul RBC 4.27 (4.20-5.40) M/uL Hgb 12.7 (12.0-16.0) g/dl Hct 39.1 (37.0-47.0) % MCV 91.6 (80.0-100.0) fL MCH 29.7 (25.0-34.0) pg MCHC 32.5 (32.0-36.0) g/dL RDW Std Deviation 41.4 (36.4-46.3) fL RDW Coeff of [place] 12.3 (11.5-14.5) % Plt Count 303 (130-400) K/uL MPV 9.7 (9.4-12.4) fL Immature Gran % (Auto) 0.2 % Neut % (Auto) 81.0 % Lymph % (Auto) 9.7 % [place] % (Auto) 8.3 % Eos % (Auto) 0.5 % Baso % (Auto) 0.3 % Neut # (Auto) 11.64 H (1.40-6.50) K/uL Lymph # (Auto) 1.40 (1.20-3.40) K/uL [place] # (Auto) 1.19 H (0.11-0.59) K/uL Eos # (Auto) 0.07 (0.00-0.50) K/uL Baso # (Auto) 0.05 (0.00-0.20) K/uL Immature Gran # (Auto) 0.03 (0.01-0.20) K/uL Sodium 136 (136-145) mmol/L Potassium 3.9 (3.5-5.1) mmol/L Chloride 101 (98-107) mmol/L Carbon Dioxide 22 (21-32) mmol/L Anion Gap 13 H (3-11) BUN 13 (6-23) mg/dl Creatinine 0.84 (0.6-1.2) mg/dl Est Cr Clr Drug Dosing 92.4 ml/min Est GFR ( Amer) 89.4 ml/min Est GFR (Non-Af Amer) 77.2 ml/min BUN/Creatinine Ratio 15.5 (10-20) Glucose 82 (70-99(Fasting)) mg/dl Calcium 9.4 (8.6-10.3) mg/dl Total Bilirubin 0.6 (0.2-1.0) mg/dl AST 24 (13-39) U/L ALT 25 (7-52) U/L Alkaline Phosphatase 97 (34-104) U/L Total Protein 7.9 (6.0-8.3) gm/dl Albumin 3.9 (3.4-5.0) gm/dl Globulin 4.0 (2.5-4.0) gm/dl Albumin/Globulin Ratio 1.0 (0.9-2) Lipase 9 L (11-82) U/L Diagnostic Findings CT OF THE ABDOMEN WITH IV CONTRAST, 09/24/2023 CLINICAL HISTORY: Abnormal right upper quadrant ultrasound. Evaluate for pancreatic mass. COMPARISON STUDY: Right upper quadrant ultrasound performed earlier today. TECHNIQUE: Axial images of the abdomen were obtained following intravenous injection of 88 cc of Optiray 320 IV. Automated exposure control was utilized for the study. A dose lowering technique was utilized adhering to the principles of ALARA. FINDINGS: Lung bases are unremarkable. No pneumatosis, free air or portal venous gas is present. The liver, spleen, adrenal glands, right kidney and pancreas are normal. A fat-containing 1.1 cm lesion within the upper pole the left kidney represents an angiomyolipoma. There is no hydronephrosis. There is no biliary or pancreatic ductal dilatation. The caliber and wall thickness of visualized small and large bowel are normal. Note is made of significant wall thickening of the gastric antrum and pylorus with apparent shouldering. There is moderate adjacent inflammation extending into the omentum. There is a multiloculated rim-enhancing 4 x 3.8 cm density along the inferior aspect of the distal stomach on axial image 143 of 221. There is no extraluminal gas. No additional fluid collections are present. There is a prominent mitul hepatis lymph node on image 91 measures 1.9 x 1.1 cm. A few small lymph nodes inferior to the stomach are present. Major vasculature is patent. IMPRESSION: 1. Significant wall thickening of the gastric antrum and pylorus with apparent shouldering. A gastric neoplasm is the diagnosis of exclusion. However, gastritis could have a similar imaging appearance. Moderate perigastric inflammation extending into the mesentery and a 4 x 3.8 cm multiloculated rim- enhancing collection. These findings suggest a contained perforation with developing abscess formation which corresponds to the finding on ultrasound. No extraluminal gas. GI or Surgical consultation is recommended. 2. Indeterminate slightly enlarged mitul hepatis lymph node. A few prominent perigastric lymph nodes which may be reactive but should be assessed on follow- up exams. 3. No pancreatic abnormality. ACT 112: Negative or not required by law. US gallbladder 09/24/2023 CLINICAL HISTORY: Abdominal pain. Rutherford sign positive. COMPARISON STUDY: No previous studies for comparison. FINDINGS: Liver is sonographically normal. There is borderline dilatation of the common bile duct, measuring 7 mm. No intrahepatic biliary ductal dilatation is identified. There are no gallstones. There is no gallbladder wall thickening. No sonographic Rutherford sign was elicited. The gallbladder is mildly distended. Pancreatic body is normal. Head and tail are obscured. There is a hypoechoic focus anterior to the pancreas. This measures approximately 7.6 cm in transverse dimension. IMPRESSION: 1. No gallstones. No evidence for acute cholecystitis. 2. Borderline dilatation of the common bile duct which could be correlated with liver function tests. 3. Hypoechoic focus anterior to the pancreas measuring approximately 7.6 cm in transverse dimension. This may be artifactual and represent bowel or the stomach. However, a CT of the abdomen with IV contrast to exclude a mass is recommended. ACT 112: Negative or not required by law.
--- NOTE | 2023-09-24 15:23 | Gastrointestinal Consultation ---
Date of Consultation September 24, 2023 Assessment & Plan (1) Abdominal pain: (2) Abnormal CT scan: Plan abdominal pains with abnormal CT ddx includes neoplasm vs. severe gastritis and ulcer vs. contained perforation recs: --protonix IV 40 mg BID --supportive care,IVFs --antibiotics --patient is high risk for perforation at this time would defer EGD and plan to do as outpatient in 2 weeks. Thank you for allowing me to participate in the care of this patient History of Present Illness History of Present Illness 57 yo female with hx HTN here with epigastric abdominal pain and RUQ pain. She was in ER 07/2023 and took antacids and improved. She notes abdominal pains, nausea. Denies nsaid use, smoking, family hx gastric nor esophageal nor colon cancer. CT imaging shows gastritis/possible contained perforation with abscess of an ulcer vs. neoplasm. currently feeling better after receiving pain medicine. labs reviewed, Allergies Allergy/AdvReac Type Severity Reaction Status Date / Time Sulfa (Sulfonamide Allergy Unknown Unknown Unverified 09/24/23 10:58 Antibiotics) Home Medications Medication Instructions Recorded Confirmed Type ascorbic acid (vitamin C) 500 mg 500 mg PO DAILY 09/24/23 09/24/23 History capsule,extended release (Vitamin C) aspirin 81 mg tablet 81 mg PO DAILY 09/24/23 09/24/23 History cholecalciferol (vitamin D3) 50 50 mcg PO DAILY 09/24/23 09/24/23 History mcg (2,000 unit) tablet (Vitamin D3) losartan 50 mg tablet 50 mg PO QAM 09/24/23 09/24/23 History metoprolol succinate 25 mg 25 mg PO HS 09/24/23 09/24/23 History tablet,extended release 24 hr ondansetron 8 mg disintegrating 8 mg PO Q8H PRN NAUSEA/VOMITING 09/24/23 09/24/23 History tablet zinc 100 mg tablet 100 mg PO DAILY 09/24/23 09/24/23 History Patient History Medical History HTN (hypertension) Surgical History History of cardiac catheterization 07/2023. PH [facility] Family History Mother Hypertension Coronary heart disease fatal MS age 60 Social History Smoking Status: Never smoker Hx Alcohol Use: Yes Hx Substance Use: No Preferred Language: Ma[place] Feels Safe at Home: Yes Review of Systems Constitutional: no fever, no chills and no weight loss Eyes: as per Subjective / HPI Ear, Nose, Mouth, Throat: as per Subjective / HPI Respiratory: no dyspnea and no dyspnea on exertion Cardiovascular: no chest pain and no palpitations Gastrointestinal: as per Subjective / HPI Musculoskeletal: no joint pain and no swelling Integumentary: no rash and no lesions Neurologic: no numbness and no paresthesia Psychiatric: no depression and no anxiety Endocrine: no fatigue Hematologic / Lymphatic: no easy bleeding and no easy bruising Physical Exam Constitutional: WD/WN, vitals as above Eyes: EOM intact bilaterally Neck: normal visual inspection Respiratory: normal respiratory effort, lungs clear to auscultation Cardiovascular: RRR, no murmur, no edema Gastrointestinal (Abdomen): Inspection/Auscultation: abdomen normal to inspection; abdomen not distended Percussion/Palpation: abdomen soft; abdomen nontender and no hepatosplenomegaly Musculoskeletal: Head/Neck/Chest: normocephalic and head atraumatic Extremities: no cyanosis Skin: no rashes, warm and dry Neurologic: moves all extremities Psychiatric: Orientation: alert and cooperative Affect: euthymic affect Results & Data Vital Signs (Past 12 Hours) Vital Signs Temp Pulse Pulse Resp BP BP Pulse Ox 09/24/23 15:07 101 H 09/24/23 14:35 95 09/24/23 14:23 88 L 09/24/23 14:00 104 H 12 95 09/24/23 14:00 159/95 H 09/24/23 13:00 105 H 15 96 09/24/23 12:18 105 H 16 144/90 H 94 09/24/23 12:16 107 H 25 H 94 09/24/23 12:16 144/90 H 09/24/23 12:00 105 H 15 95 09/24/23 11:00 100 H 17 95 09/24/23 10:01 128/84 09/24/23 10:01 99 H 18 96 09/24/23 10:00 98 H 20 96 09/24/23 09:52 107 H 09/24/23 09:37 98 09/24/23 09:30 105 H 17 96 09/24/23 09:30 122/76 09/24/23 09:27 107 H 20 96 09/24/23 09:27 121/99 09/24/23 09:05 36.9 C 118 H 20 131/84 98 O2 Del Method O2 Flow Rate 09/24/23 15:07 09/24/23 14:35 Nasal Cannula 2 09/24/23 14:23 Room Air 09/24/23 14:00 09/24/23 14:00 09/24/23 13:00 09/24/23 12:18 Room Air 09/24/23 12:16 09/24/23 12:16 09/24/23 12:00 09/24/23 11:00 09/24/23 10:01 09/24/23 10:01 09/24/23 10:00 09/24/23 09:52 09/24/23 09:37 Room Air 09/24/23 09:30 09/24/23 09:30 09/24/23 09:27 09/24/23 09:27 09/24/23 09:05 Room Air PG Care Time/CCT Total # of Minutes Spent Total Time Spent with Patient: Total time spent is greater than 50% in coordination of care (as documented) at patient's floor/unit and/or counseling patient: Coding Level of Care Code 23354 IN/OBS CONSULT LVL 4,60M Diagnoses Abdominal pain R10.[address] scan R93.89
--- NOTE | 2023-09-24 15:28 | Electrocardiogram Report ---
Test Reason : Blood Pressure : / mmHG Vent. Rate : 106 BPM Atrial Rate : 106 BPM P-R Int : 200 ms QRS Dur : 084 ms QT Int : 340 ms P-R-T Axes : 033 -12 017 degrees QTc Int : 451 ms Sinus tachycardia Septal infarct , age undetermined Abnormal ECG No previous ECGs available Confirmed by Luis Carlos Kay ([id number]) on 09/24/2023 3:28:09 PM Referred By: REFERRED SELF Confirmed By:Luis Carlos Kay
[2023-09-24 16:41] LABS: Appearance Urine Clear (Clear); Bacteria Urine Automated Negative (Negative); Bilirubin Urine Negative (Negative); Blood Urine Negative (Negative); Color Urine Yellow; Epithelial Cell Urine Auto 20-30 /lpf (0-5); Glucose Urine UA Negative (Negative); Ketones Urine 4+ (Negative); Leukocyte Esterase Urine Negative (Negative); Nitrite Urine Negative (Negative); Protein Urine Trace (Negative); RBC Urine Automated 0-4 /hpf (0-4); Specific Gravity Urine > 1.045 (1.000-1.030); Urobilinogen Urine Negative (Negative); pH Urine 5.5 (4.5-7.5)
[2023-09-24] MEDS ORDERED: ONDANSETRON INJ 2 MG/ML 2 ML VIAL IV PRN (17:48)
[2023-09-24] MEDS: D5W AND NSS 1,000 ML IV SCH (18:40)
[2023-09-24] MEDS: PANTOprazole 40 MG in DEXTROSE 5% MINI-B 100 ML IV SCH (18:57)
[2023-09-24] MEDS: PIPERACILLIN/TAZOBACTAM 4.5 GM in DEXTROSE 5% MINI-B 100 ML IV SCH (20:58)
[2023-09-24] MEDS: METOPROLOL SUCC 25MG EXT REL TAB PO SCH (21:07)
[2023-09-24] MEDS: ACETAMINOPHEN 1,000 MG/100 ML VIAL IV PRN (23:45)
[2023-09-25] MEDS: PANTOprazole 40 MG in DEXTROSE 5% MINI-B 100 ML IV SCH ×6 (00:06→23:06)
[2023-09-25] MEDS: PIPERACILLIN/TAZOBACTAM 4.5 GM in DEXTROSE 5% MINI-B 100 ML IV SCH ×3 (03:40→18:42)
[2023-09-25 05:08] LABS: Basophils # (auto) 0.02 K/uL (0.00-0.20); Basophils % (auto) 0.2 %; Eosinophils # (auto) 0.15 K/uL (0.00-0.50); Eosinophils % (auto) 1.6 %; Hematocrit (blood only) 32.9 % (37.0-47.0); Hemoglobin 10.8 g/dl (12.0-16.0); Immature Granulocytes # (auto) 0.04 K/uL (0.01-0.20); Immature Granulocytes % (auto) 0.4 %; Lymphocytes # (auto) 1.32 K/uL (1.20-3.40); Lymphocytes % (auto) 14.2 %; Mean Corpuscular Hemoglobin 30.4 pg (25.0-34.0); Mean Corpuscular Hgb Conc 32.8 g/dL (32.0-36.0); Mean Corpuscular Volume 92.7 fL (80.0-100.0); Mean Platelet Volume 9.5 fL (9.4-12.4); Monocytes # (auto) 0.73 K/uL (0.11-0.59); Monocytes % (auto) 7.9 %; Neutrophils # (auto) 7.02 K/uL (1.40-6.50); Neutrophils % (auto) 75.7 %; Platelet Count 230 K/uL (130-400); RDW Standard Deviation 41.1 fL (36.4-46.3); Red Blood Count 3.55 M/uL (4.20-5.40); White Blood Count 9.28 K/ul (4.8-10.8)
[2023-09-25 05:36] LABS: Albumin Level 3.1 gm/dl (3.4-5.0); Bilirubin,Total 0.4 mg/dl (0.2-1.0); Calcium 8.3 mg/dl (8.6-10.3); Potassium 3.6 mmol/L (3.5-5.1)
[2023-09-25 05:42] LABS: Albumin Globulin Ratio 0.9 (0.9-2); BUN Creatinine Ratio 11.9 (10-20); Creatinine Clr Calc Pharmacy 115.9 ml/min; Est GFR (African American) 113.1 ml/min; Est GFR (Non-African American) 97.6 ml/min; Globulin 3.3 gm/dl (2.5-4.0); Total Protein 6.4 gm/dl (6.0-8.3)
[2023-09-25] MEDS: HYDROmorphone INJ 0.5 MG/0.5 ML SYR IV PRN ×2 (06:08→22:32)
[2023-09-25] MEDS: D5W AND NSS 1,000 ML IV SCH (06:21)
[2023-09-25] MEDS: LOSARTAN POTASSIUM 50 MG TAB PO SCH (08:32)
--- NOTE | 2023-09-25 10:24 | Gastroenterology Progress Note ---
Date of Service September 25, 2023 Assessment & Plan (1) Abnormal CT scan: (2) Abdominal pain: (3) Gastric mass: (4) Gastric perforation: Plan: Continue current treatment with Protonix gtt IV Abx as per primary team Recommend stool H. pylori Ag now Continue supportive care Outpatient EGD with Dr. Reyes in the near future. Admission and Anticipated Discharge Date Admission Date: September 24, 2023 Subjective Feeling slightly better today. Still with RUQ abdominal pain. Denies any BM's overnight. Does not feel like eating anything, but does ask for Ice chips. She denies any fevers, chills, nausea, vomiting, diarrhea, hematemesis, melena or hematochezia. She has no further complaints. Review of Systems Review of Systems: All systems reviewed & are unremarkable except as noted in Subjective Physical Exam Constitutional: WD/WN, vitals as above Respiratory: normal respiratory effort, lungs clear to auscultation Cardiovascular: RRR, no murmur, no edema Gastrointestinal (Abdomen): Inspection/Auscultation: normal bowel sounds; abdomen not distended Percussion/Palpation: + abdomen tender and abdomen soft Results & Data Results & Data Vital Signs (Past 12 Hours) Vital Signs Temp Pulse Pulse Resp BP BP Pulse Ox 09/25/23 09:00 82 09/25/23 07:36 36.8 C 86 18 133/82 96 09/25/23 03:28 36.6 C 83 18 123/77 95 09/25/23 01:46 96 H 09/24/23 23:41 36.9 C 91 H 18 130/82 94 O2 Del Method 09/25/23 09:00 09/25/23 07:36 Room Air 09/25/23 03:28 Room Air 09/25/23 01:46 09/24/23 23:41 Room Air PG Care Time/CCT Total # of Minutes Spent Total Time Spent with Patient: Total time spent is greater than 50% in coordination of care (as documented) at patient's floor/unit and/or counseling patient: Coding Level of Care Code 88134 SUB INP/OBS CARE 3/50MIN Diagnoses Abnormal CT scan R93.89 Abdominal pain R10.9 Gastric mass K31.89 Gastric perforation K25.5
--- NOTE | 2023-09-25 13:08 | Surgery Progress Note ---
Date of Service September 25, 2023 Assessment & Plan (1) Gastric mass: Plan: Assessment: Patient is a 57 years old female who presented to ED with a 2-month history epigastric and right upper quadrant pain associated with nausea and vomiting. Patient had a CT scan diagnosis of possible gastric neoplasm, possible with perforation containing abscess. size 4x3.8 cm, WBC 14,000. plan: Based on the patient history and physical exam CT scan finding, recommend general counselor GI for possible EGD biopsy gastric neoplasm to rule out gastric malignancy ulcer or mass. Patient needs transfer to higher level care of oncology surgeon consult if confirmed diagnosis gastric malignancy or patient condition getting worse. Start IV Zosyn. control pain. N.p.o.. IV fluid. Repeat the lab tomorrow. Conservative treatment now. Patient may need exploratory laparotomy if patient condition getting worse. Patient prefer go to a higher level care if her condition getting worse. pt and her Agreed with the plan. I answered all questions. Discussion with hospitalist who will admit the patient to the hospital. Thanks. 09/25/2023 12 58 PM pt is stable, reviewed GI note, out patient for EGD 2 weeks. continue conservative treatment clear diet now. I discussion with the patient possible gastric mass benign or malignancy, once patient get a EGD with a biopsy done, we will decide what kind of surgery should be done. Patient is stable, no indication surgical exploratory small abscess now, possible cause tumor metastatic disease if patient has a malignancy diagnosis. patient understands, I answered all questions. will F/U. Admission and Anticipated Discharge Date Admission Date: September 24, 2023 Subjective Feeling slightly better today. Still with RUQ abdominal pain. Denies any BM's overnight. Does not feel like eating anything, but does ask for Ice chips. She denies any fevers, chills, nausea, vomiting, diarrhea, hematemesis, melena or hematochezia. She has no further complaints. 09/25/2023 12:[address] Bae F/u gastric mass with abscess. pt feels better, no significant abdominal pain, no fever, no nausea, no vomiting. Physical Exam Eyes: PERRL, conjunctivae normal, anicteric sclerae Neck: trachea midline, no thyromegaly Respiratory: normal respiratory effort, lungs clear to auscultation Cardiovascular: RRR, no murmur, no edema Gastrointestinal (Abdomen): soft, less tenderness at RUQ area, no rebound pain, no distend, BS +. Musculoskeletal: no cyanosis or clubbing, extremities motor strength 5/5 Neurologic: patellar DTR's 2+ bilat, sensation intact Psychiatric: A+Ox3, euthymic affect Results & Data Vital Signs (Past 12 Hours) Vital Signs Temp Pulse Pulse Resp BP BP Pulse Ox 09/25/23 12:18 37.4 C 80 18 137/73 94 09/25/23 09:00 82 09/25/23 07:36 36.8 C 86 18 133/82 96 09/25/23 03:28 36.6 C 83 18 123/77 95 09/25/23 01:46 96 H O2 Del Method 09/25/23 12:18 Room Air 09/25/23 09:00 09/25/23 07:36 Room Air 09/25/23 03:28 Room Air 09/25/23 01:46 Laboratory Results Lab Results 09/24/23 09/24/23 09/25/23 Range/Units 09:34 16:25 04:49 WBC 14.38 H 9.28 (4.8-10.8) K/ul RBC 4.27 3.55 L (4.20-5.40) M/uL Hgb 12.7 10.8 L (12.0-16.0) g/dl Hct 39.1 32.9 L (37.0-47.0) % MCV 91.6 92.7 (80.0-100.0) fL MCH 29.7 30.4 (25.0-34.0) pg MCHC 32.5 32.8 (32.0-36.0) g/dL RDW Std Deviation 41.4 41.1 (36.4-46.3) fL RDW Coeff of [place] 12.3 12.0 (11.5-14.5) % Plt Count 303 230 (130-400) K/uL MPV 9.7 9.5 (9.4-12.4) fL Immature Gran % (Auto) 0.2 0.4 % Neut % (Auto) 81.0 75.7 % Lymph % (Auto) 9.7 14.2 % [place] % (Auto) 8.3 7.9 % Eos % (Auto) 0.5 1.6 % Baso % (Auto) 0.3 0.2 % Neut # (Auto) 11.64 H 7.02 H (1.40-6.50) K/uL Lymph # (Auto) 1.40 1.32 (1.20-3.40) K/uL [place] # (Auto) 1.19 H 0.73 H (0.11-0.59) K/uL Eos # (Auto) 0.07 0.15 (0.00-0.50) K/uL Baso # (Auto) 0.05 0.02 (0.00-0.20) K/uL Immature Gran # (Auto) 0.03 0.04 (0.01-0.20) K/uL Sodium 136 139 (136-145) mmol/L Potassium 3.9 3.6 (3.5-5.1) mmol/L Chloride 101 108 H (98-107) mmol/L Carbon Dioxide 22 25 (21-32) mmol/L Anion Gap 13 H 6 (3-11) BUN 13 8 (6-23) mg/dl Creatinine 0.84 0.67 (0.6-1.2) mg/dl Est Cr Clr Drug Dosing 92.4 115.9 ml/min Est GFR ( Amer) 89.4 113.1 ml/min Est GFR (Non-Af Amer) 77.2 97.6 ml/min BUN/Creatinine Ratio 15.5 11.9 (10-20) Glucose 82 112 H (70-99(Fasting)) mg/dl Calcium 9.4 8.3 L (8.6-10.3) mg/dl Total Bilirubin 0.6 0.4 (0.2-1.0) mg/dl AST 24 16 (13-39) U/L ALT 25 18 (7-52) U/L Alkaline Phosphatase 97 83 (34-104) U/L Total Protein 7.9 6.4 (6.0-8.3) gm/dl Albumin 3.9 3.1 L (3.4-5.0) gm/dl Globulin 4.0 3.3 (2.5-4.0) gm/dl Albumin/Globulin Ratio 1.0 0.9 (0.9-2) Lipase 9 L (11-82) U/L Urine Color Yellow Urine Appearance Clear (Clear) Urine pH 5.5 (4.5-7.5) Ur Specific [place] > 1.045 H (1.000-1.030) Urine Protein Trace H (Negative) Urine Glucose (UA) Negative (Negative) Urine Ketones 4+ H (Negative) Urine Blood Negative (Negative) Urine Nitrite Negative (Negative) Urine Bilirubin Negative (Negative) Urine Urobilinogen Negative (Negative) Ur Leukocyte Esterase Negative (Negative) Urine WBC (Auto) 1-5 (0-5) /hpf Urine RBC (Auto) 0-4 (0-4) /hpf U Hyaline Cast (Auto) 1-5 (0-5) /lpf U Epithel Cells (Auto) 20-30 H (0-5) /lpf Urine Bacteria (Auto) Negative (Negative)
--- NOTE | 2023-09-25 14:51 | Hospitalist Progress Note ---
Date of Service September 25, 2023 Assessment & Plan (1) Abdominal pain: (2) Gastric wall thickening: (3) Gastric perforation: (4) HTN (hypertension): Plan Patient is 57 y/o F with PMH HTN presented to ER with c/o abdominal pain. Abdominal pain Gastric wall thickening Gastric perforation Pt reported previous chronic alcohol use, daily aspirin, chronic coffee use Pt with CT abd/pelvis showing possible severe gastritis with gastric perforation and abscess formation vs. gastric neoplasm In ER given zosyn, Protonix bolus, Zofran, Dilaudid Blood cultures NGTD. Were obtained after initial antibiotics. IVF GI consult -recommending outpt EGD -conservative measures at this time General surgery consult -surgery after EGD and biopsy Advance diet as tolerated, IV abx, pain and nausea control, protonix drip HTN (hypertension) Continue losartan, metoprolol succinate Diet: clear liquids, advance as tolerated. DVT Prophylaxis: SCDs Full Code Admission and Anticipated Discharge Date Admission Date: September 24, 2023 Subjective Seen with at bedside. States that the nausea was improving. Thirsty and has been taking sips of water. Was aware of CT results and specilaist recs. Review of Systems Review of Systems: All systems reviewed & are unremarkable except as noted in Subjective Physical Exam Physical Exam: General: Alert, oriented. No acute distress Skin: No noted rashes or bruises Psych: Appropriate mood and affect Neuro: No gross deficits HEENT: NC/AT Chest: Nontender to palpation. CV: RRR, Normal s1, s2. No murmurs appreciated Resp: Breath sounds clear bilaterally, no increased effort of breathing. Abdomen: Soft, tender in epigastrium and RUQ Extremities: No edema in lower extremities bilaterally. Results & Data Results & Data Vital Signs (Past 12 Hours) Vital Signs Temp Pulse Pulse Resp BP BP Pulse Ox 09/25/23 12:18 37.4 C 80 18 137/73 94 09/25/23 09:00 82 09/25/23 07:36 36.8 C 86 18 133/82 96 09/25/23 03:28 36.6 C 83 18 123/77 95 O2 Del Method 09/25/23 12:18 Room Air 09/25/23 09:00 09/25/23 07:36 Room Air 09/25/23 03:28 Room Air
[2023-09-25] MEDS ORDERED: LORazepam 1 MG in SYRINGE 0.5 ML IV PRN (17:16)
[2023-09-25] MEDS: METOPROLOL SUCC 25MG EXT REL TAB PO SCH (19:59)
[2023-09-26] MEDS: PIPERACILLIN/TAZOBACTAM 4.5 GM in DEXTROSE 5% MINI-B 100 ML IV SCH ×3 (02:58→18:37)
[2023-09-26] MEDS: ACETAMINOPHEN 1,000 MG/100 ML VIAL IV PRN (04:41)
[2023-09-26] MEDS: PANTOprazole 40 MG in DEXTROSE 5% MINI-B 100 ML IV SCH ×4 (04:47→20:17)
[2023-09-26] MEDS: LOSARTAN POTASSIUM 50 MG TAB PO SCH (08:10)
[2023-09-26 09:08] LABS: Basophils # (auto) 0.02 K/uL (0.00-0.20); Basophils % (auto) 0.3 %; Eosinophils # (auto) 0.18 K/uL (0.00-0.50); Eosinophils % (auto) 2.6 %; Hematocrit (blood only) 35.5 % (37.0-47.0); Hemoglobin 11.7 g/dl (12.0-16.0); Immature Granulocytes # (auto) 0.02 K/uL (0.01-0.20); Immature Granulocytes % (auto) 0.3 %; Lymphocytes # (auto) 1.28 K/uL (1.20-3.40); Lymphocytes % (auto) 18.6 %; Mean Corpuscular Hemoglobin 29.8 pg (25.0-34.0); Mean Corpuscular Volume 90.3 fL (80.0-100.0); Monocytes # (auto) 0.43 K/uL (0.11-0.59); Monocytes % (auto) 6.3 %; Neutrophils # (auto) 4.94 K/uL (1.40-6.50); Neutrophils % (auto) 71.9 %; Platelet Count 313 K/uL (130-400); RDW Coefficient of Variation 12.1 % (11.5-14.5); RDW Standard Deviation 40.5 fL (36.4-46.3); Red Blood Count 3.93 M/uL (4.20-5.40); White Blood Count 6.87 K/ul (4.8-10.8)
[2023-09-26 09:26] LABS: Albumin Globulin Ratio 0.9 (0.9-2); Albumin Level 3.6 gm/dl (3.4-5.0); BUN Creatinine Ratio 5.6 (10-20); Bilirubin,Total 0.5 mg/dl (0.2-1.0); Creatinine Clr Calc Pharmacy 110.9 ml/min; Est GFR (African American) 109.6 ml/min; Est GFR (Non-African American) 94.6 ml/min; Globulin 4.1 gm/dl (2.5-4.0); Magnesium 2.2 mg/dl (1.7-2.4); Phosphorus 3.2 mg/dl (2.5-4.9); Potassium 3.8 mmol/L (3.5-5.1); Total Protein 7.7 gm/dl (6.0-8.3)
--- NOTE | 2023-09-26 14:06 | Gastroenterology Progress Note ---
Date of Service September 26, 2023 Assessment & Plan (1) Abnormal CT scan: (2) Gastric wall thickening: (3) Epigastric abdominal pain: Plan: Stool H. pylori Ag pending Continue current therapy and supportive care Outpatient EGD with Dr. Reyes in 2 weeks. Continue supportive care. Admission and Anticipated Discharge Date Admission Date: September 24, 2023 Subjective Feeling much better today. Tolerated PO intake. Slept well overnight. Still with some pain in the abdomen, but much improved. Physical Exam Constitutional: WD/WN, vitals as above Respiratory: normal respiratory effort, lungs clear to auscultation Cardiovascular: RRR, no murmur, no edema Gastrointestinal (Abdomen): Inspection/Auscultation: normal bowel sounds; abdomen not distended Percussion/Palpation: + abdomen tender and abdomen soft Results & Data Results & Data Vital Signs (Past 12 Hours) Vital Signs Temp Pulse Pulse Resp BP Pulse Ox O2 Del Method 09/26/23 11:31 36.7 C 71 18 137/90 96 Room Air 09/26/23 09:00 70 09/26/23 07:58 37.0 C 87 18 153/89 H 93 Room Air 09/26/23 03:06 85 09/26/23 02:35 36.5 C 85 18 157/97 H 93 Room Air PG Care Time/CCT Total # of Minutes Spent Total Time Spent with Patient: Total time spent is greater than 50% in coordination of care (as documented) at patient's floor/unit and/or counseling patient: Coding Level of Care Code 54408 SUB INP/OBS CARE 3/50MIN Diagnoses Abnormal CT scan R93.89 Gastric wall thickening K31.89 Epigastric abdominal pain R10.13
--- NOTE | 2023-09-26 15:00 | Surgery Progress Note ---
Date of Service September 26, 2023 Assessment & Plan (1) Gastric mass: Plan: Assessment: Patient is a 57 years old female who presented to ED with a 2-month history epigastric and right upper quadrant pain associated with nausea and vomiting. Patient had a CT scan diagnosis of possible gastric neoplasm, possible with perforation containing abscess. size 4x3.8 cm, WBC 14,000. plan: Based on the patient history and physical exam CT scan finding, recommend patent counsel GI for possible EGD biopsy gastric neoplasm to rule out gastric malignancy ulcer or mass. Patient needs transfer to higher level care of oncology surgeon consult if confirmed diagnosis gastric malignancy or patient condition getting worse. Start IV Zosyn. control pain. N.p.o.. IV fluid. Repeat the lab tomorrow. Conservative treatment now. Patient may need exploratory laparotomy if patient condition getting worse. Patient prefer go to a higher level care if her condition getting worse. pt and her Agreed with the plan. I answered all questions. Discussion with hospitalist who will admit the patient to the hospital. Thanks. 09/25/2023 12 58 PM pt is stable, reviewed GI note, out patient for EGD 2 weeks. continue conservative treatment clear diet now. I discussion with the patient possible gastric mass benign or malignancy, once patient get a EGD with a biopsy done, we will decide what kind of surgery should be done. Patient is stable, no indication surgical exploratory small abscess now, possible cause tumor metastatic disease if patient has a malignancy diagnosis. patient understands, I answered all questions. will F/U. 09/26/2023 2: 59 PM stable, feels better, may try full liquid diet, may D/C home tomorrow if pt tolerated diet. F/U me 2 weeks, at clinic. Admission and Anticipated Discharge Date Admission Date: September 24, 2023 Subjective 09/26/2023 2:[address] Bae F/u gastric mass with abscess. pt feels better, no significant abdominal pain, no fever, no nausea, no vomiting. tolerated clear diet. Physical Exam Eyes: PERRL, conjunctivae normal, anicteric sclerae Neck: trachea midline, no thyromegaly Respiratory: normal respiratory effort, lungs clear to auscultation Cardiovascular: RRR, no murmur, no edema Gastrointestinal (Abdomen): soft, mild tenderness at RUQ, no rebound pain, no distend, BS +. Musculoskeletal: no cyanosis or clubbing, extremities motor strength 5/5 Neurologic: patellar DTR's 2+ bilat, sensation intact Psychiatric: A+Ox3, euthymic affect Results & Data Vital Signs (Past 12 Hours) Vital Signs Temp Pulse Pulse Resp BP Pulse Ox O2 Del Method 09/26/23 11:31 36.7 C 71 18 137/90 96 Room Air 09/26/23 09:00 70 09/26/23 07:58 37.0 C 87 18 153/89 H 93 Room Air 09/26/23 03:06 85 Laboratory Results Lab Results 09/24/23 09/24/23 09/25/23 Range/Units 09:34 16:25 04:49 WBC 14.38 H 9.28 (4.8-10.8) K/ul RBC 4.27 3.55 L (4.20-5.40) M/uL Hgb 12.7 10.8 L (12.0-16.0) g/dl Hct 39.1 32.9 L (37.0-47.0) % MCV 91.6 92.7 (80.0-100.0) fL MCH 29.7 30.4 (25.0-34.0) pg MCHC 32.5 32.8 (32.0-36.0) g/dL RDW Std Deviation 41.4 41.1 (36.4-46.3) fL RDW Coeff of [place] 12.3 12.0 (11.5-14.5) % Plt Count 303 230 (130-400) K/uL MPV 9.7 9.5 (9.4-12.4) fL Immature Gran % (Auto) 0.2 0.4 % Neut % (Auto) 81.0 75.7 % Lymph % (Auto) 9.7 14.2 % [place] % (Auto) 8.3 7.9 % Eos % (Auto) 0.5 1.6 % Baso % (Auto) 0.3 0.2 % Neut # (Auto) 11.64 H 7.02 H (1.40-6.50) K/uL Lymph # (Auto) 1.40 1.32 (1.20-3.40) K/uL [place] # (Auto) 1.19 H 0.73 H (0.11-0.59) K/uL Eos # (Auto) 0.07 0.15 (0.00-0.50) K/uL Baso # (Auto) 0.05 0.02 (0.00-0.20) K/uL Immature Gran # (Auto) 0.03 0.04 (0.01-0.20) K/uL Sodium 136 139 (136-145) mmol/L Potassium 3.9 3.6 (3.5-5.1) mmol/L Chloride 101 108 H (98-107) mmol/L Carbon Dioxide 22 25 (21-32) mmol/L Anion Gap 13 H 6 (3-11) BUN 13 8 (6-23) mg/dl Creatinine 0.84 0.67 (0.6-1.2) mg/dl Est Cr Clr Drug Dosing 92.4 115.9 ml/min Est GFR ( Amer) 89.4 113.1 ml/min Est GFR (Non-Af Amer) 77.2 97.6 ml/min BUN/Creatinine Ratio 15.5 11.9 (10-20) Glucose 82 112 H (70-99(Fasting)) mg/dl Calcium 9.4 8.3 L (8.6-10.3) mg/dl Ionized Calcium (1.12-1.32) mmol/L Phosphorus (2.5-4.9) mg/dl Magnesium (1.7-2.4) mg/dl Total Bilirubin 0.6 0.4 (0.2-1.0) mg/dl AST 24 16 (13-39) U/L ALT 25 18 (7-52) U/L Alkaline Phosphatase 97 83 (34-104) U/L Total Protein 7.9 6.4 (6.0-8.3) gm/dl Albumin 3.9 3.1 L (3.4-5.0) gm/dl Globulin 4.0 3.3 (2.5-4.0) gm/dl Albumin/Globulin Ratio 1.0 0.9 (0.9-2) Lipase 9 L (11-82) U/L Urine Color Yellow Urine Appearance Clear (Clear) Urine pH 5.5 (4.5-7.5) Ur Specific [place] > 1.045 H (1.000-1.030) Urine Protein Trace H (Negative) Urine Glucose (UA) Negative (Negative) Urine Ketones 4+ H (Negative) Urine Blood Negative (Negative) Urine Nitrite Negative (Negative) Urine Bilirubin Negative (Negative) Urine Urobilinogen Negative (Negative) Ur Leukocyte Esterase Negative (Negative) Urine WBC (Auto) 1-5 (0-5) /hpf Urine RBC (Auto) 0-4 (0-4) /hpf U Hyaline Cast (Auto) 1-5 (0-5) /lpf U Epithel Cells (Auto) 20-30 H (0-5) /lpf Urine Bacteria (Auto) Negative (Negative) 09/26/23 Range/Units 08:35 WBC 6.87 (4.8-10.8) K/ul RBC 3.93 L (4.20-5.40) M/uL Hgb 11.7 L (12.0-16.0) g/dl Hct 35.5 L (37.0-47.0) % MCV 90.3 (80.0-100.0) fL MCH 29.8 (25.0-34.0) pg MCHC 33.0 (32.0-36.0) g/dL RDW Std Deviation 40.5 (36.4-46.3) fL RDW Coeff of [place] 12.1 (11.5-14.5) % Plt Count 313 (130-400) K/uL MPV 10.0 (9.4-12.4) fL Immature Gran % (Auto) 0.3 % Neut % (Auto) 71.9 % Lymph % (Auto) 18.6 % [place] % (Auto) 6.3 % Eos % (Auto) 2.6 % Baso % (Auto) 0.3 % Neut # (Auto) 4.94 (1.40-6.50) K/uL Lymph # (Auto) 1.28 (1.20-3.40) K/uL [place] # (Auto) 0.43 (0.11-0.59) K/uL Eos # (Auto) 0.18 (0.00-0.50) K/uL Baso # (Auto) 0.02 (0.00-0.20) K/uL Immature Gran # (Auto) 0.02 (0.01-0.20) K/uL Sodium 139 (136-145) mmol/L Potassium 3.8 (3.5-5.1) mmol/L Chloride 106 (98-107) mmol/L Carbon Dioxide 25 (21-32) mmol/L Anion Gap 8 (3-11) BUN 4 L (6-23) mg/dl Creatinine 0.71 (0.6-1.2) mg/dl Est Cr Clr Drug Dosing 110.9 ml/min Est GFR ( Amer) 109.6 ml/min Est GFR (Non-Af Amer) 94.6 ml/min BUN/Creatinine Ratio 5.6 L (10-20) Glucose 116 H (70-99(Fasting)) mg/dl Calcium 9.0 (8.6-10.3) mg/dl Ionized Calcium 1.14 (1.12-1.32) mmol/L Phosphorus 3.2 (2.5-4.9) mg/dl Magnesium 2.2 (1.7-2.4) mg/dl Total Bilirubin 0.5 (0.2-1.0) mg/dl AST 17 (13-39) U/L ALT 19 (7-52) U/L Alkaline Phosphatase 95 (34-104) U/L Total Protein 7.7 D (6.0-8.3) gm/dl Albumin 3.6 (3.4-5.0) gm/dl Globulin 4.1 H (2.5-4.0) gm/dl Albumin/Globulin Ratio 0.9 (0.9-2) Lipase (11-82) U/L Urine Color Urine Appearance (Clear) Urine pH (4.5-7.5) Ur Specific [place] (1.000-1.030) Urine Protein (Negative) Urine Glucose (UA) (Negative) Urine Ketones (Negative) Urine Blood (Negative) Urine Nitrite (Negative) Urine Bilirubin (Negative) Urine Urobilinogen (Negative) Ur Leukocyte Esterase (Negative) Urine WBC (Auto) (0-5) /hpf Urine RBC (Auto) (0-4) /hpf U Hyaline Cast (Auto) (0-5) /lpf U Epithel Cells (Auto) (0-5) /lpf Urine Bacteria (Auto) (Negative)
--- NOTE | 2023-09-26 16:43 | Hospitalist Progress Note ---
Date of Service September 26, 2023 Assessment & Plan (1) Abdominal pain: (2) Gastric wall thickening: (3) Gastric perforation: (4) HTN (hypertension): Plan Patient is 57 y/o F with PMH HTN presented to ER with c/o abdominal pain. Abdominal pain Gastric wall thickening Gastric perforation Pt reported previous social alcohol use usually on the weekends, daily aspirin, chronic coffee use Pt with CT abd/pelvis showing possible severe gastritis with gastric perforation and abscess formation vs. gastric neoplasm H pylori testing pending In ER given zosyn, Protonix bolus, Zofran, Dilaudid Blood cultures NGTD. Were obtained after initial antibiotics. IVF GI consult -recommending outpt EGD -conservative measures at this time General surgery consult -surgery after EGD and biopsy Advance diet as tolerated, IV abx, pain and nausea control, protonix drip HTN (hypertension) Continue losartan, metoprolol succinate Diet: full liquids, advance as tolerated. DVT Prophylaxis: SCDs Full Code Admission and Anticipated Discharge Date Admission Date: September 24, 2023 Subjective Pt seen sitting in chair at bedside. Stated that she was feeling better. Denied acute concerns. Would like to advance diet. Review of Systems Review of Systems: All systems reviewed & are unremarkable except as noted in Subjective Physical Exam Physical Exam: General: Alert, oriented. No acute distress Skin: No noted rashes or bruises Psych: Appropriate mood and affect Neuro: No gross deficits HEENT: NC/AT Chest: Nontender to palpation. CV: RRR, Normal s1, s2. No murmurs appreciated Resp: Breath sounds clear bilaterally, no increased effort of breathing. Abdomen: Soft, tender in epigastrium and RUQ Extremities: No edema in lower extremities bilaterally. Results & Data Results & Data Vital Signs (Past 12 Hours) Vital Signs Temp Pulse Pulse Resp BP Pulse Ox O2 Del Method 09/26/23 16:10 76 09/26/23 15:39 36.6 C 67 18 137/90 95 Room Air 09/26/23 11:31 36.7 C 71 18 137/90 96 Room Air 09/26/23 09:00 70 09/26/23 07:58 37.0 C 87 18 153/89 H 93 Room Air
[2023-09-26] MEDS: METOPROLOL SUCC 25MG EXT REL TAB PO SCH (20:40)
[2023-09-27] MEDS ORDERED: MELATONIN 3 MG TAB PO PRN (00:10)
[2023-09-27] MEDS: PIPERACILLIN/TAZOBACTAM 4.5 GM in DEXTROSE 5% MINI-B 100 ML IV SCH ×2 (03:56→10:50)
[2023-09-27 05:19] LABS: Basophils # (auto) 0.03 K/uL (0.00-0.20); Basophils % (auto) 0.6 %; Eosinophils # (auto) 0.33 K/uL (0.00-0.50); Eosinophils % (auto) 6.2 %; Hematocrit (blood only) 34.3 % (37.0-47.0); Hemoglobin 10.9 g/dl (12.0-16.0); Immature Granulocytes # (auto) 0.03 K/uL (0.01-0.20); Immature Granulocytes % (auto) 0.6 %; Lymphocytes % (auto) 28.4 %; Mean Corpuscular Hemoglobin 29.3 pg (25.0-34.0); Mean Corpuscular Hgb Conc 31.8 g/dL (32.0-36.0); Mean Corpuscular Volume 92.2 fL (80.0-100.0); Mean Platelet Volume 9.7 fL (9.4-12.4); Monocytes # (auto) 0.46 K/uL (0.11-0.59); Monocytes % (auto) 8.7 %; Neutrophils # (auto) 2.94 K/uL (1.40-6.50); Neutrophils % (auto) 55.5 %; Platelet Count 286 K/uL (130-400); RDW Coefficient of Variation 11.9 % (11.5-14.5); RDW Standard Deviation 40.7 fL (36.4-46.3); Red Blood Count 3.72 M/uL (4.20-5.40); White Blood Count 5.29 K/ul (4.8-10.8)
[2023-09-27 05:48] LABS: Albumin Level 3.4 gm/dl (3.4-5.0); BUN Creatinine Ratio 4.3 (10-20); Bilirubin,Total 0.4 mg/dl (0.2-1.0); Calcium 9.1 mg/dl (8.6-10.3); Creatinine Clr Calc Pharmacy 113.9 ml/min; Est GFR (Non-African American) 96.6 ml/min; Globulin 3.5 gm/dl (2.5-4.0); Magnesium 2.2 mg/dl (1.7-2.4); Phosphorus 4.7 mg/dl (2.5-4.9); Potassium 3.6 mmol/L (3.5-5.1); Total Protein 6.9 gm/dl (6.0-8.3)
[2023-09-27] MEDS: LOSARTAN POTASSIUM 50 MG TAB PO SCH (08:04)
[2023-09-27] MEDS ORDERED: PANTOprazole 40 MG in SYRINGE 0 ML IV SCH (09:00)
--- NOTE | 2023-09-27 13:00 | Discharge Summary ---
Discharge Summary Date of Service September 27, 2023 Notes For Next Care Provider Needs GI follow up in 2 weeks for EGD Needs general Surgery follow up after GI procedure Medication Changes From Visit Discharged with 11 days of: ciprofloxacin 500mg BID metronidazole 500mg TID Also discharged with reglan for use as needed for nausea and pantoprazole Admission HPI Per Admitting Provider Patient is 57 y/o F with PMH HTN presented to ER with c/o abdominal pain. History obtained from patient and patient's spouse. Patient had episode of RUQ abdominal pain, nausea and vomiting in 07/2023 and was seen at [facility] ER and she reports a "negative" RUQ ultrasound. States was started on antacids and symptoms resolved in approximately 3 days. Had another episode of RUQ abdominal pain about a month ago that self resolved. Patient states for past 10 days has had almost constant abdominal discomfort and nausea. Pain sometimes to epigastric region but mostly to RUQ. Pain worsened the past couple of days and is aggravated with any type of movement. Yesterday and today at 02:00 had episodes of vomiting brown color emesis. No further vomiting since. Has had limited oral intake secondary to nausea and pain. Has not been taking temperature. [place] cold a couple of days ago but denies diaphoresis or chills recently. Has been taking Tylenol for abdominal pain with minimal relief. Saw PCP recently and was set up to have HIDA scan in near future for suspected gallbladder dysfunction. Reports was previously drinking ETOH almost daily. Past several months drinking 2 drinks of liquor 2-3 days a week. Drinks 2 cups coffee daily. Denies using NSAIDs. Takes 81mg aspirin daily. Patient states in 07/2023 had cardiac cath for abnormal stress test. She states the cardiac cath showed nonobstructive arteries. Denies hematemesis, melena, hematochezia, coffee ground emesis, diarrhea, FELIX, dizziness, syncope, neck pain, CP, SOB, palpitations, cough, sore throat, rhinorrhea, extremity weakness, extremity edema, rashes, urinary symptoms. Principal Dx & Hospital Course #1 = Principal Diagnosis (1) Abdominal pain: (2) Gastric wall thickening: (3) Gastric perforation: (4) HTN (hypertension): Plan Patient is 57 y/o F with PMH HTN presented to ER with c/o abdominal pain. Abdominal pain Gastric wall thickening Gastric perforation Pt reported previous social alcohol use usually on the weekends, daily aspirin, chronic coffee use Pt with CT abd/pelvis showing possible severe gastritis with gastric perforation and abscess formation vs. gastric neoplasm H pylori testing pending In ER given zosyn, Protonix bolus, Zofran, Dilaudid Blood cultures NGTD. Were obtained after initial antibiotics. IVF GI consult -recommending outpt EGD -conservative measures at this time General surgery consult -surgery after EGD and biopsy Advance diet as tolerated, IV abx, pain and nausea control, protonix drip HTN (hypertension) Continue losartan, metoprolol succinate Diet: full liquids, advance as tolerated. DVT Prophylaxis: SCDs Full Code Discharge Exam General: Alert, oriented. No acute distress Skin: No noted rashes or bruises Psych: Appropriate mood and affect Neuro: No gross deficits HEENT: NC/AT Chest: Nontender to palpation. CV: RRR, Normal s1, s2. No murmurs appreciated Resp: Breath sounds clear bilaterally, no increased effort of breathing. Abdomen: Soft, tender in epigastrium and RUQ Extremities: No edema in lower extremities bilaterally. Updated Medication List Medication Instructions Recorded Confirmed Type ascorbic acid (vitamin C) 500 mg 500 mg PO DAILY 09/24/23 09/24/23 History capsule,extended release (Vitamin C) cholecalciferol (vitamin D3) 50 50 mcg PO DAILY 09/24/23 09/24/23 History mcg (2,000 unit) tablet (Vitamin D3) losartan 50 mg tablet 50 mg PO QAM 09/24/23 09/24/23 History metoprolol succinate 25 mg 25 mg PO HS 09/24/23 09/24/23 History tablet,extended release 24 hr ondansetron 8 mg disintegrating 8 mg PO Q8H PRN NAUSEA/VOMITING 09/24/23 09/24/23 History tablet zinc 100 mg tablet 100 mg PO DAILY 09/24/23 09/24/23 History ciprofloxacin HCl 500 mg tablet 500 mg PO BID #22 tabs 09/27/23 Rx metoclopramide HCl 5 mg tablet 5 mg PO DAILY PRN nausea and 09/27/23 Rx (Reglan) vomiting #10 tabs metronidazole 500 mg tablet 500 mg PO Q8H #33 tabs 09/27/23 Rx pantoprazole 40 mg tablet,delayed 40 mg PO BID #22 tabs 09/29/23 Rx release pantoprazole 40 mg tablet,delayed 40 mg PO BID #60 tabs 09/29/23 Rx release (Protonix) sucralfate 1 gram tablet 1 g PO ACHS #11 tabs 09/29/23 Rx sucralfate 1 gram tablet (Carafate) 1 g PO ACHS #40 tabs 09/29/23 Rx Hospital Stay Data Consultations 09/24/23 13:18 Consult Gastroenterology Routine Consult General Surgery Routine ED Decision to Admit Stat 09/24/23 17:48 Consult General Surgery Routine Diagnostic Imagining Performed 09/24/23 09:33 US gallbladder Stat 09/24/23 11:15 CT abdomen w IV con Stat Discharge Instructions Given to Patient (Per Discharging Provider) Ms. Bañuelos, You were admitted with abdominal pain and you were seen by both gastroenterology and general surgery. Gastroenterology recommends an EGD in 2 weeks. They recommend treating you with antibiotics and pantoprazole which will be given to you on discharge. You will have 11 more days of antibiotics (ciprofloxacin and metronidazole) and the pantoprazole. Your pain was under control at discharge. Please continue to use tylenol (NOT ibuprofen which is also Advil or Motrin) to help with your pain. General surgery will follow up with you after your EGD and would like to see you in 2 weeks as well. They will contact you to schedule. Please stop taking your home aspirin until you follow up with your primary care provider. Also discharging you with nausea medication to use as needed. We ask that you keep close follow up with your primary care provider, gastroenterology and General Surgery after discharge. Please do not hesitate to return if your symptoms get worse or return. Take care, it was a pleasure taking care of you while you were here.
== END 2023-09-27 17:33 | disposition home or self-care (01) | DRG 392 ==
LOC: ED 08:58 → 4W 14:08 → SUATTDRO 14:08 → 4W 18:41

== ENCOUNTER 2024-03-03 22:14 | Inpatient (IN) ==
[2024-03-03] MEDS: FAMOTIDINE 20MG IV PUSH 20 MG/5 ML SYR IV STA (22:59)
[2024-03-03] MEDS: SODIUM CHLORIDE 0.9% 1,000 ML IV STA (23:00)
[2024-03-03] MEDS: ONDANSETRON INJ 2 MG/ML 2 ML VIAL IV STA (23:00)
[2024-03-03 23:07] LABS: Basophils # (auto) 0.04 K/uL (0.00-0.20); Basophils % (auto) 0.3 %; Eosinophils # (auto) 0.03 K/uL (0.00-0.50); Eosinophils % (auto) 0.2 %; Immature Granulocytes # (auto) 0.05 K/uL (0.01-0.20); Immature Granulocytes % (auto) 0.4 %; Lymphocytes # (auto) 1.47 K/uL (1.20-3.40); Lymphocytes % (auto) 10.5 %; Mean Corpuscular Hemoglobin 30.2 pg (25.0-34.0); Mean Corpuscular Hgb Conc 33.3 g/dL (32.0-36.0); Mean Corpuscular Volume 90.5 fL (80.0-100.0); Mean Platelet Volume 10.6 fL (9.4-12.4); Monocytes # (auto) 1.17 K/uL (0.11-0.59); Monocytes % (auto) 8.3 %; Neutrophils # (auto) 11.27 K/uL (1.40-6.50); Neutrophils % (auto) 80.3 %; Platelet Count 228 K/uL (130-400); RDW Coefficient of Variation 11.9 % (11.5-14.5); Red Blood Count 4.31 M/uL (4.20-5.40); White Blood Count 14.03 K/ul (4.8-10.8)
[2024-03-03 23:19] LABS: Appearance Urine Cloudy (Clear); Bacteria Urine Automated 3+ (None Seen); Bilirubin Urine Negative (Negative); Blood Urine Negative (Negative); Color Urine Yellow; Epithelial Cell Urine Auto 0-2 /hpf (0-2); Glucose Urine UA Negative (Negative); Ketones Urine 2+ (Negative); Leukocyte Esterase Urine Trace (Negative); Nitrite Urine Negative (Negative); Protein Urine Trace (Negative); Specific Gravity Urine 1.021 (1.000-1.030); Urobilinogen Urine Negative (Negative); pH Urine 5.5 (4.5-7.5)
[2024-03-03 23:25] LABS: Albumin Globulin Ratio 1.1 (0.9-2); Albumin Level 3.9 gm/dl (3.4-5.0); BUN Creatinine Ratio 12.7 (10-20); Calcium 8.5 mg/dl (8.6-10.3); Creatinine Clr Calc Pharmacy 94.6 ml/min; Est GFR (African American) 95.6 ml/min; Est GFR (Non-African American) 82.5 ml/min; Globulin 3.7 gm/dl (2.5-4.0); Potassium 3.8 mmol/L (3.5-5.1); Total Protein 7.6 gm/dl (6.0-8.3)
--- NOTE | 2024-03-03 23:27 | Emergency Department Note ---
History of Present Illness General Chief complaint: Abdominal Pain Stated complaint: ABD PAIN,R SIDE PAIN,CRAMPING,CHILLS Time Seen by Provider: 03/03/24 22:33 History of Present Illness Maximum Pain Intensity: 9 This 58-year-old female presents ER complaining of worsening epigastric right upper quadrant pain for the past week or 2. She has a history of a severe stomach ulcer that she follows with Dr. Reyes for. She was on pantoprazole 1 tablet daily but then recently GI told her to double it when her symptoms started. Patient denies fever, chills, vomiting, black or blood in the stool. She still has her gallbladder. No current tobacco or alcohol use. Home Medications Medication Instructions Recorded Confirmed Type cholecalciferol (vitamin D3) 50 50 mcg PO DAILY 09/24/23 03/04/24 History mcg (2,000 unit) tablet (Vitamin D3) losartan 50 mg tablet 50 mg PO QAM 09/24/23 03/04/24 History metoprolol succinate 25 mg 25 mg PO HS 09/24/23 03/04/24 History tablet,extended release 24 hr pantoprazole 40 mg tablet,delayed 40 mg PO BID #60 tabs 02/28/24 03/04/24 Rx release ascorbic acid (vitamin C) 500 mg 500 mg PO DAILY 03/04/24 03/04/24 History tablet (Vitamin C) Allergies Allergy/AdvReac Type Severity Reaction Status Date / Time Sulfa (Sulfonamide Allergy Unknown Unknown Verified 03/04/24 00:10 Antibiotics) Past Med/Surg History Medical History HTN (hypertension) Surgical History Hx of wisdom tooth extraction Hx of tooth extraction 10/07/23 History of cardiac catheterization 07/2023. [place], no stents - follows w/ Fabiana Vinson [facility] cardio, [place] Family History Mother Hypertension Coronary heart disease fatal [place] age 60 Social History Smoking Status: Never smoker Second Hand Exposure: No; Do You Dip or Chew Tobacco: No; Hx Alcohol Use: Yes (none since recent hospitalization) Alcohol type: hard liquor Hx Substance Use: No Preferred Language: Turkmen Communication Ability: Effective Search Engine Marketing Strategist Required: No Beliefs That Will Affect Care: None Current Living Situation: Spouse Feels Safe at Home: Yes Assistive Devices: Glasses Review of Systems A total of 10 systems reviewed and were otherwise negative Physical Exam Vital Signs Vital Signs - 24 hr 03/03/24 22:18 03/03/24 22:47 03/03/24 23:05 Temperature 36.9 C Temperature Source Temporal Artery Scan Pulse Rate 114 H 73 104 H Respiratory Rate 18 18 Blood Pressure 120/83 Blood Pressure Mean 95 Pulse Oximetry 95 98 Oxygen Delivery Method Room Air Room Air Sepsis Recent Fever Within 48 Hours No Sepsis New/Unexplained Change in Mental Status No Sepsis Action Taken by Nursing No Action Required VITALS: Vitals are noted on the nurse's note and reviewed by myself. Vital signs stable. GENERAL: Pleasant patient, in no acute distress, nondiaphoretic, well-developed well-nourished. SKIN: Capillary reflex less than 2 seconds. HEENT: Normocephalic. PERRLA. EOMI. Nares patent. Mucous membranes moist. Neck is supple without nuchal rigidity. HEART: Regular rate and rhythm LUNGS: Clear to auscultation bilaterally without wheezes, rales or rhonchi. No retractions or accessory muscle use. ABDOMEN: Positive bowel sounds x 4. Normal tympanic percussion. Soft, tender epigastric region, no bruising, no rash, without masses or organomegaly. Rutherford sign negative. No guarding or rebound tenderness. no CVA tenderness MUSCULOSKELETAL: No gross musculoskeletal defects. NEURO: Patient was alert and oriented to person place and time. No focal neurological deficits. Course Administered Medications Discontinued Medications Sodium Chloride (Nss) 1,000 mls @ 999 mls/hr IV .Q1H1M STA Stop: 03/03/24 23:47 Last Infusion: 03/04/24 00:07 Dose: Infused Documented By: Admin: 03/03/24 23:00 Dose: 999 mls/hr Documented By: [facility] Famotidine (Pepcid 20mg Iv Push) 20 mg in 5 mls @ 2.5 mls/min IV NOW STA Stop: 03/03/24 22:48 Last Admin: 03/03/24 22:59 Dose: 2.5 mls/min Documented By: FAITH Pantoprazole Sodium 80 mg/ (Dextrose) 120 mls @ 480 mls/hr IV ONE STA Stop: 03/03/24 23:01 Last Infusion: 03/04/24 00:28 Dose: Infused Documented By: Admin: 03/04/24 00:07 Dose: 480 mls/hr Documented By: FAITH Ioversol (Optiray 320 100ml) 92 ml IV ONCE ONE Stop: 03/03/24 23:44 Last Admin: 03/03/24 23:44 Dose: 92 ml Documented By: CONCHA Morphine Sulfate (Morphine Sulfate 4 Mg/Ml 1 Ml Carp\Vial) 4 mg IV NOW STA Stop: 03/04/24 00:13 Last Admin: 03/04/24 00:33 Dose: 4 mg Documented By: FAITH Ondansetron HCl (Ondansetron Inj 2 Mg/Ml 2 Ml Vial) 4 mg IV NOW STA Stop: 03/03/24 22:48 Last Admin: 03/03/24 23:00 Dose: 4 mg Documented By: ALISSA Medical Decision Making Medical Records Attestation: I reviewed the patient's medical records. Home Medications Current Medication List: was personally reviewed by me Laboratory Data Attestation: I reviewed the patient's lab results. 03/03/24 22:42 03/03/24 22:42 Lab Results 03/03/24 03/03/24 Range/Units 22:42 22:54 WBC 14.03 H (4.8-10.8) K/ul RBC 4.31 (4.20-5.40) M/uL Hgb 13.0 (12.0-16.0) g/dl POC Hgb 13.3 (12.0-16.0) g/dl Hct 39.0 (37.0-47.0) % POC Hct 39 (37-47) % MCV 90.5 (80.0-100.0) fL MCH 30.2 (25.0-34.0) pg MCHC 33.3 (32.0-36.0) g/dL RDW Std Deviation 40.0 (36.4-46.3) fL RDW Coeff of Brenton 11.9 (11.5-14.5) % Plt Count 228 (130-400) K/uL MPV 10.6 (9.4-12.4) fL Immature Gran % (Auto) 0.4 % Neut % (Auto) 80.3 % Lymph % (Auto) 10.5 % Carroll % (Auto) 8.3 % Eos % (Auto) 0.2 % Baso % (Auto) 0.3 % Neut # (Auto) 11.27 H (1.40-6.50) K/uL Lymph # (Auto) 1.47 (1.20-3.40) K/uL Carroll # (Auto) 1.17 H (0.11-0.59) K/uL Eos # (Auto) 0.03 (0.00-0.50) K/uL Baso # (Auto) 0.04 (0.00-0.20) K/uL Immature Gran # (Auto) 0.05 (0.01-0.20) K/uL POC Sodium 138 (135-144) mmol/L Sodium 137 (136-145) mmol/L POC Potassium 3.8 (3.3-5.0) mmol/L Potassium 3.8 (3.5-5.1) mmol/L POC Chloride 104 (101-112) mmol/L Chloride 105 (98-107) mmol/L Carbon Dioxide 23 (21-32) mmol/L POC Total CO2 26 (24-31) mmol/L Anion Gap 9 (3-11) POC Anion Gap 13.0 L (16-25) mmol/L POC BUN 9 (7-18) mg/dl BUN 10 (6-23) mg/dl Creatinine 0.79 (0.6-1.2) mg/dl POC Creatinine 0.8 (0.6-1.3) mg/dl Est Cr Clr Drug Dosing 94.6 ml/min Est GFR ( Amer) 95.6 ml/min Est GFR (Non-Af Amer) 82.5 ml/min BUN/Creatinine Ratio 12.7 (10-20) Glucose 116 H (70-99(Fasting)) mg/dl POC Glucose (other) 118 H (70-99) mg/dl Calcium 8.5 L (8.6-10.3) mg/dl POC Ioniz Calcium Kishan 1.14 (1.12-1.32) mmol/l Total Bilirubin 1.0 (0.2-1.0) mg/dl AST 20 (13-39) U/L ALT 15 (7-52) U/L Alkaline Phosphatase 93 (34-104) U/L Troponin I High Sens 3.7 (0-14) pg/ml Total Protein 7.6 (6.0-8.3) gm/dl Albumin 3.9 (3.4-5.0) gm/dl Globulin 3.7 (2.5-4.0) gm/dl Albumin/Globulin Ratio 1.1 (0.9-2) Lipase 10 L (11-82) U/L Urine Color Yellow Urine Appearance Cloudy A (Clear) Urine pH 5.5 (4.5-7.5) Ur Specific [place] 1.021 (1.000-1.030) Urine Protein Trace H (Negative) Urine Glucose (UA) Negative (Negative) Urine Ketones 2+ H (Negative) Urine Blood Negative (Negative) Urine Nitrite Negative (Negative) Urine Bilirubin Negative (Negative) Urine Urobilinogen Negative (Negative) Ur Leukocyte Esterase Trace H (Negative) Urine WBC (Auto) 11-20 H (0-5) /hpf Urine RBC (Auto) 3-5 H (0-2) /hpf U Hyaline Cast (Auto) 3-5 H (0-2) /lpf U Epithel Cells (Auto) 0-2 (0-2) /hpf Urine Bacteria (Auto) 3+ H (None Seen) Imaging Data Attestation: I personally reviewed and interpreted this imaging study as follows: Radiologist's Impression: Abdomen/Pelvis CT 03/03/24 22:48 Exam(s): CT ABDOMEN + PELVIS With Contrast Oral - High Density Amt: 30 oz gastro, IV Amt: 92 cc's optitray 320 EXAM: CT Abdomen and Pelvis With Intravenous Contrast CLINICAL HISTORY: ? perforated stomach ulcer. TECHNIQUE: Axial computed tomography images of the abdomen and pelvis with intravenous contrast. CTDI is 28.19 mGy and DLP is 1446.36 mGy-cm. Automated exposure control was utilized for the study. A dose lowering technique was utilized adhering to the principles of ALARA. CONTRAST: Patient received 30 oz gastro of Oral - High Density and 92 cc's optitray 320 of IV contrast COMPARISON: CT abdomen with contrast dated 09/24/2023 FINDINGS: Lung bases: Unremarkable. No mass. No consolidation. ABDOMEN: Liver: Unremarkable. No mass. Gallbladder and bile ducts: Unremarkable. No calcified stones. No ductal dilation. Pancreas: Unremarkable. No mass. No ductal dilation. Spleen: Unremarkable. No splenomegaly. Adrenals: Unremarkable. No mass. Kidneys and ureters: Unremarkable. No solid mass. No hydronephrosis. Stomach and bowel: There is abnormal mucosal thickening involving the pyloric channel, most prominent inferiorly. Oral contrast does extend through the pyloric channel without evidence for high-grade gastric obstruction. There is persistent abnormal focal pedunculated soft tissue extending inferiorly from the pyloric channel, smaller from the prior examination, but measuring 2 x 2.7 cm. There is fat stranding also identified in the adjacent omentum. The remaining small and large bowel is unremarkable. Mild stool burden. No diverticulitis. PELVIS: Appendix: A normal caliber appendix is noted inferior to the cecum. Bladder: Unremarkable. No mass. Reproductive: There is a cyst involving the right lateral pelvis in the region of the right ovary/adnexa measuring 2.5 x 2.1 x 2.6 cm. No internal complex features or definite enhancing components. ABDOMEN and PELVIS: Intraperitoneal space: Omental fat stranding noted extending from the abnormal gastric pylorus inferiorly adjacent to the transverse colon. There is mild free fluid in the dependent pelvis which is of intermediate density measuring approximately 27 Hounsfield units. No layering hematocrit. No free air. Bones/joints: No acute fracture. No dislocation. Soft tissues: The overlying soft tissues are unremarkable. No hernia. Vasculature: Unremarkable. No abdominal aortic aneurysm. Lymph nodes: Unremarkable. No enlarged lymph nodes. IMPRESSION: 1. There is abnormal mucosal thickening involving the pyloric channel, most prominent inferiorly. Oral contrast does extend through the pyloric channel without evidence for high-grade gastric obstruction. There is persistent abnormal focal pedunculated soft tissue extending inferiorly from the pyloric channel, smaller from the prior examination, but measuring 2 x 2.7 cm (series 300; images 25-30). There is fat stranding also identified in the adjacent omentum. Findings are concerning for persistent ulceration with distal gastritis. No perforation or abscess. 2. There is mild free fluid in the dependent pelvis which is of intermediate density measuring approximately 27 Hounsfield units. No layering hematocrit. Findings are most consistent with small volume hemoperitoneum or proteinaceous fluid, presumably from the pyloric process. 3. There is a cyst involving the right lateral pelvis in the region of the right ovary/adnexa measuring 2.5 x 2.1 x 2.6 cm. No internal complex features or definite enhancing components. The clinical significance of this finding is indeterminant and this may be incidental. Electronically signed by: Walter Acuna MD 03/04/24 00:25 AM MDM Narrative Prior records/ancillary studies reviewed. Triage Nursing notes reviewed. Additional history obtained from nursing. The patient's history was concerning for abdominal pain. Differential diagnosis: Etiologies such as perforated ulcer, appendicitis, diverticulitis, PUD, biliary pathology, UTI, pancreatitis, obstruction, mesenteric ischemia, aortic pathology, infections, inflammatory bowel disease, renal colic, as well as others were entertained. Physical examination findings: As above. ER treatment provided: An order was placed for continuous cardiac monitoring. The monitor shows a rate of 60-100 with a sinus rhythm per my Independent interpretation. Protonix, Pepcid, IV fluids I-STAT was ordered and patient was sent down immediately to CAT scan for rule out perforation On reassessment the patient felt better. Diagnostics interpreted by me: ECG: Ordered for upper abdominal pain EKG: Normal sinus, normal intervals, no acute ST-T wave changes. Impression normal sinus rhythm independently interpreted by myself I think arrhythmia is unlikely. EKG shows normal sinus rhythm with no interval abnormalities such as QT prolongation or WPW. There are no findings to suggest Brugada syndrome. Cardiac monitoring in the emergency department reveals no tachycardic or bradycardic dysrhythmia. Hypertrophic cardiomyopathy was considered but there are no clear historical elements pointing toward this. EKG is not suggestive. The QRS voltage is not extremely large and there are no suggestive Q waves. The labs Independently Interpreted by myself revealed leukocytosis, stable H&H, normal LFTs Imaging studies: Chest x-ray with no acute consolidation, pneumothorax or free air per my independent interpretation CT as above Consultation: A consultation was placed with the hospitalist. The case was discussed and diagnostics were reviewed. The patient was evaluated in the ER for further treatment. Exam and history seem consistent with epigastric pain most likely related to acute on chronic stomach ulcer. No perforation on CAT scan. Patient was initially given Protonix and Pepcid. Medicine was consulted and case was discussed. Patient be admitted to the medical service. She is agreeable. By the evaluation outlined above emergent etiologies such as appendicitis, diverticulitis, UTI, pancreatitis, obstruction, mesenteric ischemia, aortic pathology, infections, inflammatory bowel disease, renal colic, as well as others were deemed relatively unlikely. The pt informed about the findings as listed above. All questions were answered and pleased with the treatment. The chart was completed utilizing [employer] Interactive Speech voice recognition software. Grammatical errors, random word insertions, pronoun errors, and incomplete sentences are an occassional consequence of this system due to software limitations, ambient noise, and hardware issues. Any formal questions or concerns about the content, text, or information contained within the body of this dictation should be directly addressed to the physician loan officer assistant for clarification. Impression & Plan Epigastric abdominal pain Discharge Plan Visit Data Chief Complaint: Abdominal Pain Stated Complaint: ABD PAIN,R SIDE PAIN,CRAMPING,CHILLS ED Provider: Russel Candelaria ED Midlevel Provider: Nicole Doll Discharge Problem: Epigastric abdominal pain Patient Disposition: Admitted As Inpatient Condition: Good Forms Stand Alone Forms: [facility] ConnectToHome Prescriptions Prescriptions: No Action pantoprazole 40 mg tablet,delayed release (DR/EC) 40 mg PO BID Qty: 60 1RF losartan 50 mg tablet 50 mg PO QAM metoprolol succinate 25 mg tablet extended release 24 hr 25 mg PO HS cholecalciferol (vitamin D3) [Vitamin D3] 50 mcg (2,000 unit) Tablet 50 mcg PO DAILY Patient Comments: on hold ascorbic acid (vitamin C) [Vitamin C] 500 mg Tablet 500 mg PO DAILY Referrals Referrals: Jorge Luis Gil [Primary Care Provider] -
[2024-03-03 23:31] LABS: Troponin I High Sensitivity 3.7 pg/ml (0-14)
[2024-03-03] MEDS: OPTIRAY 320 100ml IV ONE (23:44)
[2024-03-04] MEDS: PANTOprazole 80 MG in DEXTROSE 5% 100 ML IV STA (00:07)
--- NOTE | 2024-03-04 00:26 | CT Scan Report ---
Exam(s): CT ABDOMEN + PELVIS With Contrast Oral - High Density Amt: 30 oz gastro, IV Amt: 92 cc's optitray 320 EXAM: CT Abdomen and Pelvis With Intravenous Contrast CLINICAL HISTORY: ? perforated stomach ulcer. TECHNIQUE: Axial computed tomography images of the abdomen and pelvis with intravenous contrast. CTDI is 28.19 mGy and DLP is 1446.36 mGy-cm. Automated exposure control was utilized for the study. A dose lowering technique was utilized adhering to the principles of ALARA. CONTRAST: Patient received 30 oz gastro of Oral - High Density and 92 cc's optitray 320 of IV contrast COMPARISON: CT abdomen with contrast dated 09/24/2023 FINDINGS: Lung bases: Unremarkable. No mass. No consolidation. ABDOMEN: Liver: Unremarkable. No mass. Gallbladder and bile ducts: Unremarkable. No calcified stones. No ductal dilation. Pancreas: Unremarkable. No mass. No ductal dilation. Spleen: Unremarkable. No splenomegaly. Adrenals: Unremarkable. No mass. Kidneys and ureters: Unremarkable. No solid mass. No hydronephrosis. Stomach and bowel: There is abnormal mucosal thickening involving the pyloric channel, most prominent inferiorly. Oral contrast does extend through the pyloric channel without evidence for high-grade gastric obstruction. There is persistent abnormal focal pedunculated soft tissue extending inferiorly from the pyloric channel, smaller from the prior examination, but measuring 2 x 2.7 cm. There is fat stranding also identified in the adjacent omentum. The remaining small and large bowel is unremarkable. Mild stool burden. No diverticulitis. PELVIS: Appendix: A normal caliber appendix is noted inferior to the cecum. Bladder: Unremarkable. No mass. Reproductive: There is a cyst involving the right lateral pelvis in the region of the right ovary/adnexa measuring 2.5 x 2.1 x 2.6 cm. No internal complex features or definite enhancing components. ABDOMEN and PELVIS: Intraperitoneal space: Omental fat stranding noted extending from the abnormal gastric pylorus inferiorly adjacent to the transverse colon. There is mild free fluid in the dependent pelvis which is of intermediate density measuring approximately 27 Hounsfield units. No layering hematocrit. No free air. Bones/joints: No acute fracture. No dislocation. Soft tissues: The overlying soft tissues are unremarkable. No hernia. Vasculature: Unremarkable. No abdominal aortic aneurysm. Lymph nodes: Unremarkable. No enlarged lymph nodes. IMPRESSION: 1. There is abnormal mucosal thickening involving the pyloric channel, most prominent inferiorly. Oral contrast does extend through the pyloric channel without evidence for high-grade gastric obstruction. There is persistent abnormal focal pedunculated soft tissue extending inferiorly from the pyloric channel, smaller from the prior examination, but measuring 2 x 2.7 cm (series 300; images 25-30). There is fat stranding also identified in the adjacent omentum. Findings are concerning for persistent ulceration with distal gastritis. No perforation or abscess. 2. There is mild free fluid in the dependent pelvis which is of intermediate density measuring approximately 27 Hounsfield units. No layering hematocrit. Findings are most consistent with small volume hemoperitoneum or proteinaceous fluid, presumably from the pyloric process. 3. There is a cyst involving the right lateral pelvis in the region of the right ovary/adnexa measuring 2.5 x 2.1 x 2.6 cm. No internal complex features or definite enhancing components. The clinical significance of this finding is indeterminant and this may be incidental. Electronically signed by: Walter Acuna MD 03/04/24 00:25 AM
[2024-03-04] MEDS: MoRPHine SULFATE 4 MG/ML 1 ML CARP\\VIAL IV STA (00:33)
[2024-03-04 01:23] LABS: iSTAT Creatinine 0.8 mg/dl (0.6-1.3); iSTAT Hemoglobin 13.3 g/dl (12.0-16.0); iSTAT Ionized Calcium 1.14 mmol/l (1.12-1.32); iSTAT Potassium 3.8 mmol/L (3.3-5.0)
--- NOTE | 2024-03-04 02:24 | History & Physical Report ---
Date of Service March 04, 2024 Assessment & Plan (1) Epigastric abdominal pain: Plan: 58-year-old female with past med history significant for hypertension, history of perforated gastric ulcer comes because of abdominal pain going on for last 2 weeks and progressively getting worse. Patient is worried about again perforation ,called GI and her Protonix was increased to twice daily and there is a plan for CAT scan but as the the pain is getting worse she came to the ER today. Pain is located epigastric region radiating to the right upper quadrant region.Currently no nausea. Normal bowel and bladder movements. Denies any blood in the stools or black stools. No fevers. No chest pain or shortness of breath. No cough. No headache. No runny nose or sore throat. Currently resting comfortably and hemodynamic stable. Epigastric abdominal pain Radiating to right upper quadrant History of perforated gastric ulcer CT abdomen pelvis no perforation or abscess but shows thickening of the pyloric channel And also concern for persistent ulceration with distal gastritis Placed on IV Protonix 40 mg twice daily and IV Pepcid 20 mg twice daily N.p.o., IV fluids Pain control Consult GI Right ovarian cyst Needs follow-up Hypertension Continue losartan and metoprolol succinate Will monitor DVT prophylaxis SCDs for now Disposition Medical floor Full code History of Present Illness Chief Complaint: Abdominal pain Primary Care Provider: Jorge Luis Gil 58-year-old female with past med history significant for hypertension, history of perforated gastric ulcer comes because of abdominal pain going on for last 2 weeks and progressively getting worse. Patient is worried about again perforation ,called GI and her Protonix was increased to twice daily and there is a plan for CAT scan but as the the pain is getting worse she came to the ER today. Pain is located epigastric region radiating to the right upper quadrant region.Currently no nausea. Normal bowel and bladder movements. Denies any blood in the stools or black stools. No fevers. No chest pain or shortness of breath. No cough. No headache. No runny nose or sore throat. Currently resting comfortably and hemodynamic stable. Past medical history. As mentioned above Past surgical history. S/p cardiac cath. Social history. No smoking. Drinks alcohol. No substance abuse. Family history. Mother had hypertension and fatal [place] at age of 60. Allergies Allergy/AdvReac Type Severity Reaction Status Date / Time Sulfa (Sulfonamide Allergy Unknown Unknown Verified 04/27/24 00:10 Antibiotics) Home Medications Medication Instructions Recorded Confirmed Type cholecalciferol (vitamin D3) 50 50 mcg PO DAILY 09/24/23 03/04/24 History mcg (2,000 unit) tablet (Vitamin D3) losartan 50 mg tablet 50 mg PO QAM 09/24/23 03/04/24 History metoprolol succinate 25 mg 25 mg PO HS 09/24/23 03/04/24 History tablet,extended release 24 hr pantoprazole 40 mg tablet,delayed 40 mg PO BID #60 tabs 02/28/24 03/04/24 Rx release ascorbic acid (vitamin C) 500 mg 500 mg PO DAILY 03/04/24 03/04/24 History tablet (Vitamin C) Past Med/Surg History Medical History HTN (hypertension) Surgical History Hx of wisdom tooth extraction Hx of tooth extraction 10/07/23 History of cardiac catheterization 07/2023. [facility] [place], no stents - follows w/ Fabiana V[facility], [place] Family History Mother Hypertension Coronary heart disease fatal [place] age 60 Social History Smoking Status: Never smoker Second Hand Exposure: No; Do You Dip or Chew Tobacco: No; Hx Alcohol Use: No Hx Substance Use: No Preferred Language: Mongolian Communication Ability: Effective Telephone Repairer Required: No Beliefs That Will Affect Care: None Current Living Situation: Spouse Feels Safe at Home: Yes Safety Concerns: Feels Safe At This Time Assistive Devices: Glasses Review of Systems Review of Systems: All systems reviewed & are unremarkable except as noted in HPI & below Physical Exam Physical Exam: General- Not in distress Head- atraumatic Eyes- PERRL. ENT- oropharynx clear Neck- supple, no JVD. Lungs- clear to auscultation , no wheezing or crackles Heart- regular rhythm; no murmur, no gallop. Abdomen- normal bowel sounds, soft, tenderness in epigastric region, mild guarding present, no distension seen. Extremities- no pretibial edema, no erythema seen Neuro- alert, oriented PERRL, EOMI; no facial palsy; no dysarthria; moves extremities. Results & Data Results & Data Vital Signs (Past 12 Hours) Vital Signs Temp Pulse Resp BP Pulse Ox O2 Del Method 03/03/24 23:05 104 H 03/03/24 22:47 73 18 98 Room Air 03/03/24 22:18 36.9 C 114 H 18 120/83 95 Room Air Diagnostic Findings Laboratory Results WBC 14.03 K/ul (4.8-10.8) H 03/03/24 22:42 RBC 4.31 M/uL (4.20-5.40) 03/03/24 22:42 Hgb 13.0 g/dl (12.0-16.0) 03/03/24 22:42 POC Hgb 13.3 g/dl (12.0-16.0) 03/03/24 22:54 Hct 39.0 % (37.0-47.0) 03/03/24 22:42 POC Hct 39 % (37-47) 03/03/24 22:54 MCV 90.5 fL (80.0-100.0) 03/03/24 22:42 MCH 30.2 pg (25.0-34.0) 03/03/24 22:42 MCHC 33.3 g/dL (32.0-36.0) 03/03/24 22:42 RDW Std Deviation 40.0 fL (36.4-46.3) 03/03/24 22:42 RDW Coeff of Brenton 11.9 % (11.5-14.5) 03/03/24 22:42 Plt Count 228 K/uL (130-400) 03/03/24 22:42 MPV 10.6 fL (9.4-12.4) 03/03/24 22:42 Immature Gran % (Auto) 0.4 % 03/03/24 22:42 Neut % (Auto) 80.3 % 03/03/24 22:42 Lymph % (Auto) 10.5 % 03/03/24 22:42 Blair % (Auto) 8.3 % 03/03/24 22:42 Eos % (Auto) 0.2 % 03/03/24 22:42 Baso % (Auto) 0.3 % 03/03/24 22:42 Neut # (Auto) 11.27 K/uL (1.40-6.50) H 03/03/24 22:42 Lymph # (Auto) 1.47 K/uL (1.20-3.40) 03/03/24 22:42 Blair # (Auto) 1.17 K/uL (0.11-0.59) H 03/03/24 22:42 Eos # (Auto) 0.03 K/uL (0.00-0.50) 03/03/24 22:42 Baso # (Auto) 0.04 K/uL (0.00-0.20) 03/03/24 22:42 Immature Gran # (Auto) 0.05 K/uL (0.01-0.20) 03/03/24 22:42 POC Sodium 138 mmol/L (135-144) 03/03/24 22:54 Sodium 137 mmol/L (136-145) 03/03/24 22:42 POC Potassium 3.8 mmol/L (3.3-5.0) 03/03/24 22:54 Potassium 3.8 mmol/L (3.5-5.1) 03/03/24 22:42 POC Chloride 104 mmol/L (101-112) 03/03/24 22:54 Chloride 105 mmol/L (98-107) 03/03/24 22:42 Carbon Dioxide 23 mmol/L (21-32) 03/03/24 22:42 POC Total CO2 26 mmol/L (24-31) 03/03/24 22:54 Anion Gap 9 (3-11) 03/03/24 22:42 POC Anion Gap 13.0 mmol/L (16-25) L 03/03/24 22:54 POC BUN 9 mg/dl (7-18) 03/03/24 22:54 BUN 10 mg/dl (6-23) 03/03/24 22:42 Creatinine 0.79 mg/dl (0.6-1.2) 03/03/24 22:42 POC Creatinine 0.8 mg/dl (0.6-1.3) 03/03/24 22:54 Est Cr Clr Drug Dosing 94.6 ml/min 03/03/24 22:42 Est GFR ( Amer) 95.6 ml/min 03/03/24 22:42 Est GFR (Non-Af Amer) 82.5 ml/min 03/03/24 22:42 BUN/Creatinine Ratio 12.7 (10-20) 03/03/24 22:42 Glucose 116 mg/dl (70-99(Fasting)) H 03/03/24 22:42 POC Glucose (other) 118 mg/dl (70-99) H 03/03/24 22:54 Calcium 8.5 mg/dl (8.6-10.3) L 03/03/24 22: POC Ioniz Calcium Kishan 1.14 mmol/l (1.12-1.32) 03/03/24 22:54 Total Bilirubin 1.0 mg/dl (0.2-1.0) 03/03/24 22: AST 20 U/L (13-39) 03/03/24 22: ALT 15 U/L (7-52) 03/03/24 22: Alkaline Phosphatase 93 U/L (34-104) 03/03/24 22: Troponin I High Sens 3.7 pg/ml (0-14) 03/03/24 22: Total Protein 7.6 gm/dl (6.0-8.3) 03/03/24 22: Albumin 3.9 gm/dl (3.4-5.0) 03/03/24 22: Globulin 3.7 gm/dl (2.5-4.0) 03/03/24 22: Albumin/Globulin Ratio 1.1 (0.9-2) 03/03/24 22: Lipase 10 U/L (11-82) L 03/03/24 22:42 Urine Color Yellow 03/03/24 22:42 Urine Appearance Cloudy (Clear) A 03/03/24 22:42 Urine pH 5.5 (4.5-7.5) 03/03/24 22:42 Ur Specific [place] 1.021 (1.000-1.030) 03/03/24 22:42 Urine Protein Trace (Negative) H 03/03/24 22:42 Urine Glucose (UA) Negative (Negative) 03/03/24 22:42 Urine Ketones 2+ (Negative) H 03/03/24 22:42 Urine Blood Negative (Negative) 03/03/24 22:42 Urine Nitrite Negative (Negative) 03/03/24 22:42 Urine Bilirubin Negative (Negative) 03/03/24 22:42 Urine Urobilinogen Negative (Negative) 03/03/24 22:42 Ur Leukocyte Esterase Trace (Negative) H 03/03/24 22:42 Urine WBC (Auto) 11-20 /hpf (0-5) H 03/03/24 22:42 Urine RBC (Auto) 3-5 /hpf (0-2) H 03/03/24 22:42 U Hyaline Cast (Auto) 3-5 /lpf (0-2) H 03/03/24 22:42 U Epithel Cells (Auto) 0-2 /hpf (0-2) 03/03/24 22:42 Urine Bacteria (Auto) 3+ (None Seen) H 03/03/24 22:42 Impressions Abdomen/Pelvis CT 03/03/24 22:48 Exam(s): CT ABDOMEN + PELVIS With Contrast Oral - High Density Amt: 30 oz gastro, IV Amt: 92 cc's optitray 320 EXAM: CT Abdomen and Pelvis With Intravenous Contrast CLINICAL HISTORY: ? perforated stomach ulcer. TECHNIQUE: Axial computed tomography images of the abdomen and pelvis with intravenous contrast. CTDI is 28.19 mGy and DLP is 1446.36 mGy-cm. Automated exposure control was utilized for the study. A dose lowering technique was utilized adhering to the principles of ALARA. CONTRAST: Patient received 30 oz gastro of Oral - High Density and 92 cc's optitray 320 of IV contrast COMPARISON: CT abdomen with contrast dated 09/24/2023 FINDINGS: Lung bases: Unremarkable. No mass. No consolidation. ABDOMEN: Liver: Unremarkable. No mass. Gallbladder and bile ducts: Unremarkable. No calcified stones. No ductal dilation. Pancreas: Unremarkable. No mass. No ductal dilation. Spleen: Unremarkable. No splenomegaly. Adrenals: Unremarkable. No mass. Kidneys and ureters: Unremarkable. No solid mass. No hydronephrosis. Stomach and bowel: There is abnormal mucosal thickening involving the pyloric channel, most prominent inferiorly. Oral contrast does extend through the pyloric channel without evidence for high-grade gastric obstruction. There is persistent abnormal focal pedunculated soft tissue extending inferiorly from the pyloric channel, smaller from the prior examination, but measuring 2 x 2.7 cm. There is fat stranding also identified in the adjacent omentum. The remaining small and large bowel is unremarkable. Mild stool burden. No diverticulitis. PELVIS: Appendix: A normal caliber appendix is noted inferior to the cecum. Bladder: Unremarkable. No mass. Reproductive: There is a cyst involving the right lateral pelvis in the region of the right ovary/adnexa measuring 2.5 x 2.1 x 2.6 cm. No internal complex features or definite enhancing components. ABDOMEN and PELVIS: Intraperitoneal space: Omental fat stranding noted extending from the abnormal gastric pylorus inferiorly adjacent to the transverse colon. There is mild free fluid in the dependent pelvis which is of intermediate density measuring approximately 27 Hounsfield units. No layering hematocrit. No free air. Bones/joints: No acute fracture. No dislocation. Soft tissues: The overlying soft tissues are unremarkable. No hernia. Vasculature: Unremarkable. No abdominal aortic aneurysm. Lymph nodes: Unremarkable. No enlarged lymph nodes. IMPRESSION: 1. There is abnormal mucosal thickening involving the pyloric channel, most prominent inferiorly. Oral contrast does extend through the pyloric channel without evidence for high-grade gastric obstruction. There is persistent abnormal focal pedunculated soft tissue extending inferiorly from the pyloric channel, smaller from the prior examination, but measuring 2 x 2.7 cm (series 300; images 25-30). There is fat stranding also identified in the adjacent omentum. Findings are concerning for persistent ulceration with distal gastritis. No perforation or abscess. 2. There is mild free fluid in the dependent pelvis which is of intermediate density measuring approximately 27 Hounsfield units. No layering hematocrit. Findings are most consistent with small volume hemoperitoneum or proteinaceous fluid, presumably from the pyloric process. 3. There is a cyst involving the right lateral pelvis in the region of the right ovary/adnexa measuring 2.5 x 2.1 x 2.6 cm. No internal complex features or definite enhancing components. The clinical significance of this finding is indeterminant and this may be incidental. Electronically signed by: Walter Acuna MD 03/04/24 00:25 AM ECG Additional Comments: ECG. Normal sinus rhythm at rate of heart rate 100. No significant change was found. Code Status & VTE Plan VTE Prophylaxis Plan VTE Prophylaxis will be ordered: Yes
[2024-03-04] MEDS ORDERED: MoRPHine SULFATE 4 MG/ML 1 ML CARP\\VIAL IV PRN (03:20)
[2024-03-04] MEDS: D5W AND 1/2NSS 1,000 ML IV SCH (03:40)
--- NOTE | 2024-03-04 03:43 | Ultrasound Report ---
Exam(s): US GALLBLADDER EXAM: US Abdomen Limited, Gallbladder CLINICAL HISTORY: epi pain. TECHNIQUE: Real-time ultrasound of the right upper quadrant with image documentation. COMPARISON: CT abdomen and pelvis with contrast performed earlier FINDINGS: Liver: The liver measures 14.1 cm. The portal vein is patent with flow directed towards the liver. Gallbladder: The gallbladder is distended without cholelithiasis. The gallbladder wall measures 2.4 mm. There is trace pericholecystic fluid. Evaluation for sonographic Rutherford sign is limited by a reported patient medication status. Common bile duct: The common bile duct is borderline prominent for the patient's age, measuring 6.9 mm. No stones. Pancreas: The pancreas is predominantly obscured from the overlying bowel gas pattern. Visualized portions of the proximal pancreas are unremarkable. Right kidney: The right kidney measures 9.2 cm. Other findings: The prominent abnormal pyloric channel is noted sonographically with single wall thickness measuring up to 1.8 cm. IMPRESSION: 1. The prominent abnormal pyloric channel is noted sonographically with single wall thickness measuring up to 1.8 cm. 2. The gallbladder is distended without cholelithiasis. The gallbladder wall is within normal limits. There is trace pericholecystic fluid. Evaluation for sonographic Rutherford sign is limited by a reported patient medication status. Sonographic findings predominantly argue against acute cholecystitis, with the exception of minimal pericholecystic fluid. However, the specificity of this finding is diminished in the setting of known inflammatory changes in the right upper quadrant. Borderline biliary dilation for the patient's age with the common bile duct measuring 6.9 mm. No definite intrahepatic biliary dilatation. Please correlate with laboratory findings. Electronically signed by: Walter Acuna MD 03/04/24 03:41 AM
[2024-03-04] MEDS: MoRPHine SULFATE 4 MG/ML 1 ML CARP\\VIAL IV PRN (04:23)
[2024-03-04] MEDS: HYDROmorphone INJ 0.5 MG/0.5 ML SYR IV PRN (06:50)
[2024-03-04 06:57] LABS: Basophils # (auto) 0.03 K/uL (0.00-0.20); Basophils % (auto) 0.2 %; Eosinophils # (auto) 0.02 K/uL (0.00-0.50); Eosinophils % (auto) 0.2 %; Immature Granulocytes # (auto) 0.05 K/uL (0.01-0.20); Immature Granulocytes % (auto) 0.4 %; Lymphocytes # (auto) 1.32 K/uL (1.20-3.40); Lymphocytes % (auto) 10.3 %; Mean Corpuscular Hemoglobin 29.6 pg (25.0-34.0); Mean Corpuscular Hgb Conc 32.4 g/dL (32.0-36.0); Mean Corpuscular Volume 91.1 fL (80.0-100.0); Mean Platelet Volume 10.2 fL (9.4-12.4); Monocytes # (auto) 1.16 K/uL (0.11-0.59); Monocytes % (auto) 9.1 %; Neutrophils # (auto) 10.19 K/uL (1.40-6.50); Neutrophils % (auto) 79.8 %; Platelet Count 207 K/uL (130-400); RDW Coefficient of Variation 12.1 % (11.5-14.5); RDW Standard Deviation 40.6 fL (36.4-46.3); Red Blood Count 4.06 M/uL (4.20-5.40); White Blood Count 12.77 K/ul (4.8-10.8)
[2024-03-04 07:21] LABS: BUN Creatinine Ratio 11.4 (10-20); Creatinine Clr Calc Pharmacy 106.8 ml/min; Est GFR (African American) 110.7 ml/min; Est GFR (Non-African American) 95.5 ml/min; Potassium 3.9 mmol/L (3.5-5.1)
--- NOTE | 2024-03-04 07:48 | XRay Report ---
XR chest 1V portable CLINICAL HISTORY: Upper abdominal pain. COMPARISON STUDY: No previous studies for comparison. FINDINGS: Lung volumes are mildly diminished. Lungs are clear. There is no pneumothorax or pleural ef fusion. Cardiac size is normal. Mediastinal contours are normal. There is no evidence for pulmonary e vaishali. There is no lucency under the hemidiaphragms to indicate pneumoperitoneum on upright chest radi ograph. IMPRESSION: No acute cardiopulmonary findings. ACT 112: Negative or not required by law. Electronically signed by: Kike Gavin M.D. 03/04/2024 7:46 AM
[2024-03-04] MEDS: FAMOTIDINE 20MG IV PUSH 20 MG/5 ML SYR IV SCH (08:38)
[2024-03-04] MEDS: PANTOprazole 40 MG in SYRINGE 0 ML IV SCH (08:38)
[2024-03-04] MEDS: LOSARTAN POTASSIUM 50 MG TAB PO SCH (08:39)
--- NOTE | 2024-03-04 10:19 | Gastrointestinal Consultation ---
Date of Consultation March 04, 2024 Assessment & Plan (1) Epigastric abdominal pain: She has persistent abdominal pain and persistent findings on CT concerning for thickened mucosa and whatever this "collection" is. She has no real risk factors for ulcer disease and certainly nothing to explain this recurrence. If there is any concern for perforation then endoscopy may be risky for converting it to free perforation. I think IV PPI for now is what is needed. I think consideration could be given to contrasted UGI study to see what this looks like "from the outside in". I think there is still concern for UGI malignancy with this picture as well. History of Present Illness Reason for Consultation: abdominal pain Attending Physician: Zeke Richard MD History of Present Illness 58 year old female who was in the hospital in September for concern for ulcer with perforation. "thickened stomach" seen on CT with concern for malignancy. She tells me her pain went away but then returned about two weeks ago. Call in to Dr. Reyes's office and she was advised to increase her pantoprazole to twice daily. She did that and the pain persisted and got worse. CT scan on admission this time shows thickened pyloric channel "There is persistent abnormal focal pedunculated soft tissue extending inferiorly from the pyloric channel, smaller from the prior examination, but measuring 2 x 2.7 cm". She denies NSAID usage and uses Tylenol for pain only rarely. She does not smoke. She has "altered her diet in attempts to get healthy" since her issues back in September. She has basically eliminated alcohol intake as well. Denies takin herbal preparations as well. Allergies Allergy/AdvReac Type Severity Reaction Status Date / Time Sulfa (Sulfonamide Allergy Unknown Unknown Verified 03/04/24 00:10 Antibiotics) Home Medications Medication Instructions Recorded Confirmed Type cholecalciferol (vitamin D3) 50 50 mcg PO DAILY 09/24/23 03/04/24 History mcg (2,000 unit) tablet (Vitamin D3) losartan 50 mg tablet 50 mg PO QAM 09/24/23 03/04/24 History metoprolol succinate 25 mg 25 mg PO HS 09/24/23 03/04/24 History tablet,extended release 24 hr pantoprazole 40 mg tablet,delayed 40 mg PO BID #60 tabs 02/28/24 03/04/24 Rx release ascorbic acid (vitamin C) 500 mg 500 mg PO DAILY 03/04/24 03/04/24 History tablet (Vitamin C) Patient History Medical History HTN (hypertension) Surgical History Hx of wisdom tooth extraction Hx of tooth extraction 10/07/23 History of cardiac catheterization 07/2023. [facility], no stents - follows w/ Fabiana Vinson [facility] cardio, Wilfredo Family History Mother Hypertension Coronary heart disease fatal [place] age 60 Social History Smoking Status: Never smoker Second Hand Exposure: No; Do You Dip or Chew Tobacco: No; Hx Alcohol Use: No Hx Substance Use: No Preferred Language: Mongolian Communication Ability: Effective Rod Finisher Required: No Beliefs That Will Affect Care: None Current Living Situation: Spouse Feels Safe at Home: Yes Safety Concerns: Feels Safe At This Time Assistive Devices: Glasses Review of Systems Review of Systems: All systems reviewed & are unremarkable except as noted in HPI & below Physical Exam Constitutional: WD/WN, vitals as above Eyes: PERRL, conjunctivae normal, anicteric sclerae ENMT: external ear and nose normal, oropharynx normal Neck: trachea midline, no thyromegaly Respiratory: normal respiratory effort, lungs clear to auscultation Cardiovascular: RRR, no murmur, no edema Gastrointestinal (Abdomen): Inspection/Auscultation: abdomen normal to inspection Percussion/Palpation: + abdomen tender (midepigastrium into right upper quadrant) and abdomen soft; no hepatosplenomegaly Musculoskeletal: Extremities: extremities normal to inspection Results & Data Vital Signs (Past 12 Hours) Vital Signs Temp Pulse Pulse Resp BP BP Pulse Ox 03/04/24 07:52 93 H 93 03/04/24 07:24 37.5 C 100 H 17 117/72 92 03/04/24 03:54 03/04/24 03:54 37 C 89 18 146/83 H 96 03/04/24 03:20 37 C 89 18 146/83 H 96 03/03/24 23:05 104 H 03/03/24 22:47 73 18 98 03/03/24 22:18 36.9 C 114 H 18 120/83 95 O2 Del Method 03/04/24 07:52 Room Air 03/04/24 07:24 Room Air 03/04/24 03:54 Room Air 03/04/24 03:54 Room Air 03/04/24 03:20 Room Air 03/03/24 23:05 03/03/24 22:47 Room Air 03/03/24 22:18 Room Air Laboratory Results 03/04/24 03/03/24 03/03/24 Range/Units 06:41 22:54 22:42 WBC 12.77 H 14.03 H (4.8-10.8) K/ul RBC 4.06 L 4.31 (4.20-5.40) M/uL Hgb 12.0 13.0 (12.0-16.0) g/dl POC Hgb 13.3 (12.0-16.0) g/dl Hct 37.0 39.0 (37.0-47.0) % POC Hct 39 (37-47) % MCV 91.1 90.5 (80.0-100.0) fL MCH 29.6 30.2 (25.0-34.0) pg MCHC 32.4 33.3 (32.0-36.0) g/dL RDW Std Deviation 40.6 40.0 (36.4-46.3) fL RDW Coeff of Brenton 12.1 11.9 (11.5-14.5) % Plt Count 207 228 (130-400) K/uL MPV 10.2 10.6 (9.4-12.4) fL Immature Gran % (Auto) 0.4 0.4 % Neut % (Auto) 79.8 80.3 % Lymph % (Auto) 10.3 10.5 % [place] % (Auto) 9.1 8.3 % Eos % (Auto) 0.2 0.2 % Baso % (Auto) 0.2 0.3 % Neut # (Auto) 10.19 H 11.27 H (1.40-6.50) K/uL Lymph # (Auto) 1.32 1.47 (1.20-3.40) K/uL [place] # (Auto) 1.16 H 1.17 H (0.11-0.59) K/uL Eos # (Auto) 0.02 0.03 (0.00-0.50) K/uL Baso # (Auto) 0.03 0.04 (0.00-0.20) K/uL Immature Gran # (Auto) 0.05 0.05 (0.01-0.20) K/uL POC Sodium 138 (135-144) mmol/L Sodium 137 137 (136-145) mmol/L POC Potassium 3.8 (3.3-5.0) mmol/L Potassium 3.9 3.8 (3.5-5.1) mmol/L POC Chloride 104 (101-112) mmol/L Chloride 106 105 (98-107) mmol/L Carbon Dioxide 25 23 (21-32) mmol/L POC Total CO2 26 (24-31) mmol/L Anion Gap 6 9 (3-11) POC Anion Gap 13.0 L (16-25) mmol/L POC BUN 9 (7-18) mg/dl BUN 8 10 (6-23) mg/dl Creatinine 0.70 0.79 (0.6-1.2) mg/dl POC Creatinine 0.8 (0.6-1.3) mg/dl Est Cr Clr Drug Dosing 106.8 94.6 ml/min Est GFR ( Amer) 110.7 95.6 ml/min Est GFR (Non-Af Amer) 95.5 82.5 ml/min BUN/Creatinine Ratio 11.4 12.7 (10-20) Glucose 137 H 116 H (70-99(Fasting)) mg/dl POC Glucose (other) 118 H (70-99) mg/dl Calcium 8.0 L 8.5 L (8.6-10.3) mg/dl POC Ioniz Calcium Kishan 1.14 (1.12-1.32) mmol/l Magnesium 2.0 (1.7-2.4) mg/dl Total Bilirubin 1.0 (0.2-1.0) mg/dl AST 20 (13-39) U/L ALT 15 (7-52) U/L Alkaline Phosphatase 93 (34-104) U/L Troponin I High Sens 3.7 (0-14) pg/ml Total Protein 7.6 (6.0-8.3) gm/dl Albumin 3.9 (3.4-5.0) gm/dl Globulin 3.7 (2.5-4.0) gm/dl Albumin/Globulin Ratio 1.1 (0.9-2) Lipase 10 L (11-82) U/L Urine Color Yellow Urine Appearance Cloudy A (Clear) Urine pH 5.5 (4.5-7.5) Ur Specific [place] 1.021 (1.000-1.030) Urine Protein Trace H (Negative) Urine Glucose (UA) Negative (Negative) Urine Ketones 2+ H (Negative) Urine Blood Negative (Negative) Urine Nitrite Negative (Negative) Urine Bilirubin Negative (Negative) Urine Urobilinogen Negative (Negative) Ur Leukocyte Esterase Trace H (Negative) Urine WBC (Auto) 11-20 H (0-5) /hpf Urine RBC (Auto) 3-5 H (0-2) /hpf U Hyaline Cast (Auto) 3-5 H (0-2) /lpf U Epithel Cells (Auto) 0-2 (0-2) /hpf Urine Bacteria (Auto) 3+ H (None Seen) Diagnostic Findings Chest X-Ray 03/03/24 22:47 XR chest 1V portable CLINICAL HISTORY: Upper abdominal pain. COMPARISON STUDY: No previous studies for comparison. FINDINGS: Lung volumes are mildly diminished. Lungs are clear. There is no pneumothorax or pleural effusion. Cardiac size is normal. Mediastinal contours are normal. There is no evidence for pulmonary edema. There is no lucency under the hemidiaphragms to indicate pneumoperitoneum on upright chest radiograph. IMPRESSION: No acute cardiopulmonary findings. ACT 112: Negative or not required by law. Electronically signed by: Kike Gavin M.D. 03/04/2024 7:46 AM Abdomen/Pelvis CT 03/03/24 22:48 Exam(s): CT ABDOMEN + PELVIS With Contrast Oral - High Density Amt: 30 oz gastro, IV Amt: 92 cc's optitray 320 EXAM: CT Abdomen and Pelvis With Intravenous Contrast CLINICAL HISTORY: ? perforated stomach ulcer. TECHNIQUE: Axial computed tomography images of the abdomen and pelvis with intravenous contrast. CTDI is 28.19 mGy and DLP is 1446.36 mGy-cm. Automated exposure control was utilized for the study. A dose lowering technique was utilized adhering to the principles of ALARA. CONTRAST: Patient received 30 oz gastro of Oral - High Density and 92 cc's optitray 320 of IV contrast COMPARISON: CT abdomen with contrast dated 09/24/2023 FINDINGS: Lung bases: Unremarkable. No mass. No consolidation. ABDOMEN: Liver: Unremarkable. No mass. Gallbladder and bile ducts: Unremarkable. No calcified stones. No ductal dilation. Pancreas: Unremarkable. No mass. No ductal dilation. Spleen: Unremarkable. No splenomegaly. Adrenals: Unremarkable. No mass. Kidneys and ureters: Unremarkable. No solid mass. No hydronephrosis. Stomach and bowel: There is abnormal mucosal thickening involving the pyloric channel, most prominent inferiorly. Oral contrast does extend through the pyloric channel without evidence for high-grade gastric obstruction. There is persistent abnormal focal pedunculated soft tissue extending inferiorly from the pyloric channel, smaller from the prior examination, but measuring 2 x 2.7 cm. There is fat stranding also identified in the adjacent omentum. The remaining small and large bowel is unremarkable. Mild stool burden. No diverticulitis. PELVIS: Appendix: A normal caliber appendix is noted inferior to the cecum. Bladder: Unremarkable. No mass. Reproductive: There is a cyst involving the right lateral pelvis in the region of the right ovary/adnexa measuring 2.5 x 2.1 x 2.6 cm. No internal complex features or definite enhancing components. ABDOMEN and PELVIS: Intraperitoneal space: Omental fat stranding noted extending from the abnormal gastric pylorus inferiorly adjacent to the transverse colon. There is mild free fluid in the dependent pelvis which is of intermediate density measuring approximately 27 Hounsfield units. No layering hematocrit. No free air. Bones/joints: No acute fracture. No dislocation. Soft tissues: The overlying soft tissues are unremarkable. No hernia. Vasculature: Unremarkable. No abdominal aortic aneurysm. Lymph nodes: Unremarkable. No enlarged lymph nodes. IMPRESSION: 1. There is abnormal mucosal thickening involving the pyloric channel, most prominent inferiorly. Oral contrast does extend through the pyloric channel without evidence for high-grade gastric obstruction. There is persistent abnormal focal pedunculated soft tissue extending inferiorly from the pyloric channel, smaller from the prior examination, but measuring 2 x 2.7 cm (series 300; images 25-30). There is fat stranding also identified in the adjacent omentum. Findings are concerning for persistent ulceration with distal gastritis. No perforation or abscess. 2. There is mild free fluid in the dependent pelvis which is of intermediate density measuring approximately 27 Hounsfield units. No layering hematocrit. Findings are most consistent with small volume hemoperitoneum or proteinaceous fluid, presumably from the pyloric process. 3. There is a cyst involving the right lateral pelvis in the region of the right ovary/adnexa measuring 2.5 x 2.1 x 2.6 cm. No internal complex features or definite enhancing components. The clinical significance of this finding is indeterminant and this may be incidental. Electronically signed by: Walter Acuna MD 03/04/24 00:25 AM Gallbladder Ultrasound 03/04/24 00:00 Exam(s): US GALLBLADDER EXAM: US Abdomen Limited, Gallbladder CLINICAL HISTORY: epi pain. TECHNIQUE: Real-time ultrasound of the right upper quadrant with image documentation. COMPARISON: CT abdomen and pelvis with contrast performed earlier FINDINGS: Liver: The liver measures 14.1 cm. The portal vein is patent with flow directed towards the liver. Gallbladder: The gallbladder is distended without cholelithiasis. The gallbladder wall measures 2.4 mm. There is trace pericholecystic fluid. Evaluation for sonographic Rutherford sign is limited by a reported patient medication status. Common bile duct: The common bile duct is borderline prominent for the patient's age, measuring 6.9 mm. No stones. Pancreas: The pancreas is predominantly obscured from the overlying bowel gas pattern. Visualized portions of the proximal pancreas are unremarkable. Right kidney: The right kidney measures 9.2 cm. Other findings: The prominent abnormal pyloric channel is noted sonographically with single wall thickness measuring up to 1.8 cm. IMPRESSION: 1. The prominent abnormal pyloric channel is noted sonographically with single wall thickness measuring up to 1.8 cm. 2. The gallbladder is distended without cholelithiasis. The gallbladder wall is within normal limits. There is trace pericholecystic fluid. Evaluation for sonographic Rutherford sign is limited by a reported patient medication status. Sonographic findings predominantly argue against acute cholecystitis, with the exception of minimal pericholecystic fluid. However, the specificity of this finding is diminished in the setting of known inflammatory changes in the right upper quadrant. Borderline biliary dilation for the patient's age with the common bile duct measuring 6.9 mm. No definite intrahepatic biliary dilatation. Please correlate with laboratory findings. Electronically signed by: Walter Acuna MD 03/04/24 03:41 AM
[2024-03-04] MEDS: ONDANSETRON INJ 2 MG/ML 2 ML VIAL IV PRN (11:48)
--- NOTE | 2024-03-04 11:58 | Electrocardiogram Report ---
Test Reason : Blood Pressure : / mmHG Vent. Rate : 100 BPM Atrial Rate : 100 BPM P-R Int : 180 ms QRS Dur : 076 ms QT Int : 350 ms P-R-T Axes : 026 -11 017 degrees QTc Int : 451 ms Normal sinus rhythm Normal ECG When compared with ECG of 24-SEP-2023 14:51, No significant change was found Confirmed by Jordan Lewis ([id number]) on 03/04/2024 11:57:39 AM Referred By: REFERRED SELF Confirmed By:Jordan Lewis
[2024-03-04] MEDS: METOPROLOL SUCC 25MG EXT REL TAB PO SCH (20:58)
[2024-03-04] MEDS: ACETAMINOPHEN 1,000 MG/100 ML VIAL IV PRN (21:01)
[2024-03-04] MEDS: cefTRIAXone SODIUM 2,000 MG/50 ML BAG IV SCH (21:30)
[2024-03-05] MEDS: ZOLPIDEM TARTRATE 5 MG TAB PO PRN (01:05)
[2024-03-05 07:16] LABS: Hemoglobin 10.8 g/dl (12.0-16.0); Mean Corpuscular Hemoglobin 29.6 pg (25.0-34.0); Mean Corpuscular Hgb Conc 31.8 g/dL (32.0-36.0); Mean Corpuscular Volume 93.2 fL (80.0-100.0); Mean Platelet Volume 10.9 fL (9.4-12.4); Platelet Count 177 K/uL (130-400); RDW Coefficient of Variation 12.1 % (11.5-14.5); RDW Standard Deviation 41.8 fL (36.4-46.3); Red Blood Count 3.65 M/uL (4.20-5.40); White Blood Count 10.88 K/ul (4.8-10.8)
--- NOTE | 2024-03-05 07:24 | Hospitalist Progress Note ---
Date of Service March 05, 2024 Assessment & Plan (1) Epigastric abdominal pain: Plan: 58 yo F w/ hypertension, history of perforated gastric ulcer comes because of abdominal pain going on for last 2 weeks and progressively getting worse. Patient is worried about again perforation ,called GI and her Protonix was increased to twice daily and there is a plan for CAT scan but as the the pain is getting worse she came to the ER today. Pain is located epigastric region radiating to the right upper quadrant region.Currently no nausea. Normal bowel and bladder movements. Denies any blood in the stools or black stools. No fevers. No chest pain or shortness of breath. No cough. No headache. No runny nose or sore throat. Currently resting comfortably and hemodynamic stable. Epigastric abdominal pain Radiating to right upper quadrant History of perforated gastric ulcer CT abdomen pelvis no perforation or abscess but shows thickening of the pyloric channel And also concern for persistent ulceration with distal gastritis Placed on IV Protonix 40 mg twice daily and IV Pepcid 20 mg twice daily N.p.o., IV fluids Pain control Consulted GI - upper GI series ordered Fever/ UTI Pt febrile overnight (denies having fever at home) UA checked by associate professor of library media and c/w UTI, started empiric Rocephin, will cont. for now and will follow cultx Right ovarian cyst Needs follow-up Hypertension Continue losartan and metoprolol succinate Will monitor DVT prophylaxis SCDs for now Disposition Medical floor Full code Admission and Anticipated Discharge Date Admission Date: March 04, 2024 Subjective Pt seen in follow up of abd. pain, pyloric wall thickness Overnight pt febrile, UA checked and c/w UTI, Rocephin started by associate professor of library media Continues to have epigastric pain but improved, pain still radiates to her back Dr. Ruiz (GI) also present at the bedside this AM - ordering upper GI series No chest pain, or shortness of breath Pt denies urinary frequency or dysuria Review of Systems Review of Systems: All systems reviewed & are unremarkable except as noted in Subjective Physical Exam Physical Exam: General- WD/WN F in NAD Head- atraumatic Eyes- PERRL. Neck- supple, no JVD. Lungs- clear to auscultation , no wheezing or crackles Heart- regular rhythm; no murmur Abdomen- normal bowel sounds, soft, tenderness in epigastric region, mild guarding present, no distension seen. Extremities- no pretibial edema, no erythema seen Neuro- alert, oriented PERRL, EOMI; no facial palsy; no dysarthria; moves extremities. Results & Data Results & Data Vital Signs (Past 12 Hours) Vital Signs Temp Pulse Resp BP Pulse Ox O2 Del Method 03/04/24 23:07 36.4 C L 84 19 96 Room Air 03/04/24 20:57 38.2 C H 03/04/24 20:18 38.7 C H 98 H 18 102/64 94 Room Air 03/04/24 19:30 Room Air Laboratory Results 03/05/24 Range/Units 06:02 WBC 10.88 H (4.8-10.8) K/ul RBC 3.65 L (4.20-5.40) M/uL Hgb 10.8 L (12.0-16.0) g/dl Hct 34.0 L (37.0-47.0) % MCV 93.2 (80.0-100.0) fL MCH 29.6 (25.0-34.0) pg MCHC 31.8 L (32.0-36.0) g/dL RDW Std Deviation 41.8 (36.4-46.3) fL RDW Coeff of Brenton 12.1 (11.5-14.5) % Plt Count 177 (130-400) K/uL MPV 10.9 (9.4-12.4) fL Sodium 136 (136-145) mmol/L Potassium 3.7 (3.5-5.1) mmol/L Chloride 105 (98-107) mmol/L Carbon Dioxide 27 (21-32) mmol/L Anion Gap 4 (3-11) BUN 7 (6-23) mg/dl Creatinine 0.78 (0.6-1.2) mg/dl Est Cr Clr Drug Dosing 95.8 ml/min Est GFR ( Amer) 97.1 ml/min Est GFR (Non-Af Amer) 83.8 ml/min BUN/Creatinine Ratio 9.0 L (10-20) Glucose 117 H (70-99(Fasting)) mg/dl Calcium 7.6 L (8.6-10.3) mg/dl Phosphorus 2.7 (2.5-4.9) mg/dl Magnesium 1.9 (1.7-2.4) mg/dl Total Bilirubin 0.6 (0.2-1.0) mg/dl AST 14 (13-39) U/L ALT 12 (7-52) U/L Alkaline Phosphatase 83 (34-104) U/L Total Protein 6.2 (6.0-8.3) gm/dl Albumin 3.1 L (3.4-5.0) gm/dl Globulin 3.1 (2.5-4.0) gm/dl Albumin/Globulin Ratio 1.0 (0.9-2) Medications Administered Current Inpatient Medications Hydromorphone HCl (Hydromorphone Inj 0.5 Mg/0.5 Ml Syr) 0.5 mg IV Q3H PRN PRN Reason: Severe Pain (Scale 7, 8, 9,10) Stop: 03/18/24 06:40 Last Admin: 03/05/24 05:31 Dose: 0.5 mg Dextrose/Sodium Chloride (D5w And 1/2nss) 1,000 mls @ 125 mls/hr IV .Q8H MICHAELLE Stop: 04/03/24 03:19 Last Admin: 03/05/24 03:32 Dose: 125 mls/hr Pantoprazole Sodium 40 mg/ (Syringe) 10 mls @ 5 mls/min IV BID MICHAELLE Stop: 04/03/24 08:59 Last Admin: 03/04/24 20:58 Dose: 5 mls/min Famotidine (Pepcid 20mg Iv Push) 20 mg in 5 mls @ 2.5 mls/min IV Q12H MICHAELLE Stop: 04/03/24 08:59 Last Admin: 03/04/24 20:58 Dose: 2.5 mls/min Acetaminophen (Ofirmev) 1,000 mg in 100 mls @ 400 mls/hr IV Q8H PRN PRN Reason: Pain or Fever Stop: 03/07/24 20:01 Last Infusion: 03/04/24 21:30 Dose: Infused Ceftriaxone Sodium (Rocephin) 2,000 mg in 50 mls @ 100 mls/hr IV Q24H MICHAELLE Stop: 03/14/24 20:14 Last Infusion: 03/04/24 22:10 Dose: Infused Losartan Potassium (Losartan Potassium 50 Mg Tab) 50 mg PO QAM MICHAELLE Stop: 04/03/24 08:59 Last Admin: 03/04/24 08:39 Dose: 50 mg Metoprolol Succinate (Metoprolol Succ 25mg Ext Rel Tab) 25 mg PO HS MICHAELLE Stop: 04/03/24 20:59 Last Admin: 03/04/24 20:58 Dose: 25 mg Ondansetron HCl (Ondansetron Inj 2 Mg/Ml 2 Ml Vial) 4 mg IV Q6H PRN PRN Reason: Nausea Stop: 04/03/24 03:19 Last Admin: 03/04/24 17:53 Dose: 4 mg Zolpidem Tartrate (Zolpidem Tartrate 5 Mg Tab) 5 mg PO HS PRN PRN Reason: Sleep Stop: 04/03/24 20:02 Last Admin: 03/05/24 01:05 Dose: 5 mg
[2024-03-05 07:38] LABS: Albumin Level 3.1 gm/dl (3.4-5.0); Bilirubin,Total 0.6 mg/dl (0.2-1.0); Calcium 7.6 mg/dl (8.6-10.3); Creatinine Clr Calc Pharmacy 95.8 ml/min; Est GFR (African American) 97.1 ml/min; Est GFR (Non-African American) 83.8 ml/min; Globulin 3.1 gm/dl (2.5-4.0); Magnesium 1.9 mg/dl (1.7-2.4); Phosphorus 2.7 mg/dl (2.5-4.9); Potassium 3.7 mmol/L (3.5-5.1); Total Protein 6.2 gm/dl (6.0-8.3)
--- NOTE | 2024-03-05 09:27 | Gastroenterology Progress Note ---
Date of Service March 05, 2024 Assessment & Plan (1) Epigastric abdominal pain: Plan: Still not sure of the extent of what is going on. Will get UGI series tomorrow to see what her GI tract looks like from outside in. Probably will need repeat EGD at some point. Would like to keep her on sips and chips until after uGI series Admission and Anticipated Discharge Date Admission Date: March 04, 2024 Subjective Had a temp spike overnight to 38.7. Says her GI symptoms are somewhat better but gets a lot of pain on her right side with cough. No symptoms of UTI. Hgb drop to 10.8 and has had mild leukocytosis but is improving. Physical Exam Physical Exam: She looks well Constitutional: WD/WN, vitals as above Results & Data Vital Signs (Past 12 Hours) Vital Signs Temp Pulse Resp BP Pulse Ox O2 Del Method 03/05/24 07:32 38.7 C H 99 H 17 109/69 91 Room Air 03/04/24 23:07 36.4 C L 84 19 96 Room Air
[2024-03-05] MEDS: metroNIDAZOLE 500 MG/100 ML BAG IV SCH (14:05)
[2024-03-06 06:47] LABS: Albumin Level 3.1 gm/dl (3.4-5.0); Bilirubin,Total 0.5 mg/dl (0.2-1.0); Calcium 7.7 mg/dl (8.6-10.3); Creatinine Clr Calc Pharmacy 105.3 ml/min; Est GFR (African American) 108.8 ml/min; Est GFR (Non-African American) 93.9 ml/min; Globulin 3.2 gm/dl (2.5-4.0); Phosphorus 3.1 mg/dl (2.5-4.9); Potassium 3.8 mmol/L (3.5-5.1); Total Protein 6.3 gm/dl (6.0-8.3)
[2024-03-06 07:31] LABS: Hematocrit (blood only) 33.6 % (37.0-47.0); Hemoglobin 10.7 g/dl (12.0-16.0); Mean Corpuscular Hemoglobin 29.6 pg (25.0-34.0); Mean Corpuscular Hgb Conc 31.8 g/dL (32.0-36.0); Mean Corpuscular Volume 92.8 fL (80.0-100.0); Mean Platelet Volume 10.9 fL (9.4-12.4); Platelet Count 196 K/uL (130-400); RDW Coefficient of Variation 11.9 % (11.5-14.5); RDW Standard Deviation 40.5 fL (36.4-46.3); Red Blood Count 3.62 M/uL (4.20-5.40); White Blood Count 8.93 K/ul (4.8-10.8)
--- NOTE | 2024-03-06 08:58 | Hospitalist Progress Note ---
Date of Service March 06, 2024 Assessment & Plan (1) Epigastric abdominal pain: Plan: 58 yo F w/ hypertension, history of perforated gastric ulcer comes because of abdominal pain going on for last 2 weeks and progressively getting worse. Patient is worried about again perforation ,called GI and her Protonix was increased to twice daily and there is a plan for CAT scan but as the the pain is getting worse she came to the ER today. Pain is located epigastric region radiating to the right upper quadrant region.Currently no nausea. Normal bowel and bladder movements. Denies any blood in the stools or black stools. No fevers. No chest pain or shortness of breath. No cough. No headache. No runny nose or sore throat. Currently resting comfortably and hemodynamic stable. Epigastric abdominal pain Radiating to right upper quadrant History of perforated gastric ulcer CT abdomen pelvis no perforation or abscess but shows thickening of the pyloric channel And also concern for persistent ulceration with distal gastritis Placed on IV Protonix 40 mg twice daily and IV Pepcid 20 mg twice dailyIV fluids Pain control Consulted GI - upper GI series obtained - 1. Confirmation of the mucosal irregularity with resultant luminal narrowing involving the distal stomach with associated mucosal ulceration. Differential considerations include an ulcerative malignancy versus peptic ulcer disease. Findings could be correlated with endoscopy. 2. No evidence of gastric outlet obstruction or gastroesophageal reflux. 03/06 Discussed w/ GI - Case - plan for EGD tmrw Fever/ UTI Pt febrile overnight (denies having fever at home) UA checked by supervisor of research and c/w UTI, started empiric Rocephin, will cont. for now and will follow cultx ucultx w/ multiple bacteria, repeat ucultx Right ovarian cyst Needs follow-up Hypertension Continue losartan and metoprolol succinate Will monitor DVT prophylaxis SCDs for now Disposition Medical floor Full code Admission and Anticipated Discharge Date Admission Date: March 04, 2024 Subjective Pt seen in follow up of abd. pain, pyloric wall thickness Continues to have epigastric /RUQ pain but improved, pain still radiates to her back S/p upper GI series today - discussed w/ GI - Case plan for EGD tomorrow No chest pain, or shortness of breath. Currently afebrile. Pt denies urinary frequency or dysuria. Review of Systems Review of Systems: All systems reviewed & are unremarkable except as noted in Subjective Physical Exam Physical Exam: General- WD/WN F in NAD Head- atraumatic Eyes- PERRL. Neck- supple, no JVD. Lungs- clear to auscultation , no wheezing or crackles Heart- regular rhythm; no murmur Abdomen- normal bowel sounds, soft, tenderness in epigastric/RUQ region, mild guarding present, no distension seen. Extremities- no pretibial edema, no erythema seen Neuro- alert, oriented PERRL, EOMI; no facial palsy; no dysarthria; moves extremities. Results & Data Results & Data Vital Signs (Past 12 Hours) Vital Signs Temp Pulse Resp BP Pulse Ox O2 Del Method 03/06/24 07:42 36.2 C L 94 H 18 122/79 93 Room Air 03/06/24 05:26 36.8 C 03/05/24 23:15 37.8 C H Laboratory Results 03/06/24 Range/Units 05:35 WBC 8.93 (4.8-10.8) K/ul RBC 3.62 L (4.20-5.40) M/uL Hgb 10.7 L (12.0-16.0) g/dl Hct 33.6 L (37.0-47.0) % MCV 92.8 (80.0-100.0) fL MCH 29.6 (25.0-34.0) pg MCHC 31.8 L (32.0-36.0) g/dL RDW Std Deviation 40.5 (36.4-46.3) fL RDW Coeff of Brenton 11.9 (11.5-14.5) % Plt Count 196 (130-400) K/uL MPV 10.9 (9.4-12.4) fL Sodium 138 (136-145) mmol/L Potassium 3.8 (3.5-5.1) mmol/L Chloride 106 (98-107) mmol/L Carbon Dioxide 28 (21-32) mmol/L Anion Gap 4 (3-11) BUN 5 L (6-23) mg/dl Creatinine 0.71 (0.6-1.2) mg/dl Est Cr Clr Drug Dosing 105.3 ml/min Est GFR ( Amer) 108.8 ml/min Est GFR (Non-Af Amer) 93.9 ml/min BUN/Creatinine Ratio 7.0 L (10-20) Glucose 108 H (70-99(Fasting)) mg/dl Calcium 7.7 L (8.6-10.3) mg/dl Phosphorus 3.1 (2.5-4.9) mg/dl Magnesium 2.0 (1.7-2.4) mg/dl Total Bilirubin 0.5 (0.2-1.0) mg/dl AST 13 (13-39) U/L ALT 11 (7-52) U/L Alkaline Phosphatase 91 (34-104) U/L Total Protein 6.3 (6.0-8.3) gm/dl Albumin 3.1 L (3.4-5.0) gm/dl Globulin 3.2 (2.5-4.0) gm/dl Albumin/Globulin Ratio 1.0 (0.9-2) Medications Administered Current Inpatient Medications Hydromorphone HCl (Hydromorphone Inj 0.5 Mg/0.5 Ml Syr) 0.5 mg IV Q3H PRN PRN Reason: Severe Pain (Scale 7, 8, 9,10) Stop: 03/18/24 06:40 Last Admin: 03/06/24 05:20 Dose: 0.5 mg Dextrose/Sodium Chloride (D5w And 1/2nss) 1,000 mls @ 125 mls/hr IV .Q8H [facility] Stop: 04/03/24 03:19 Last Infusion: 03/06/24 08:31 Dose: 0 mls/hr Pantoprazole Sodium 40 mg/ (Syringe) 10 mls @ 5 mls/min IV BID [facility] Stop: 04/03/24 08:59 Last Admin: 03/05/24 21:04 Dose: 5 mls/min Famotidine (Pepcid 20mg Iv Push) 20 mg in 5 mls @ 2.5 mls/min IV Q12H [facility] Stop: 04/03/24 08:59 Last Admin: 03/05/24 21:04 Dose: 2.5 mls/min Acetaminophen (Ofirmev) 1,000 mg in 100 mls @ 400 mls/hr IV Q8H PRN PRN Reason: Pain or Fever Stop: 03/07/24 20:01 Last Infusion: 03/05/24 23:29 Dose: Infused Ceftriaxone Sodium (Rocephin) 2,000 mg in 50 mls @ 100 mls/hr IV Q24H [facility] Stop: 03/14/24 20:14 Last Infusion: 03/05/24 21:45 Dose: Infused Metronidazole (Flagyl) 500 mg in 100 mls @ 100 mls/hr IV Q8H [facility]; Protocol Stop: 03/07/24 13:59 Last Infusion: 03/06/24 06:21 Dose: Infused Losartan Potassium (Losartan Potassium 50 Mg Tab) 50 mg PO QAM [facility] Stop: 04/03/24 08:59 Last Admin: 03/06/24 07:37 Dose: 50 mg Metoprolol Succinate (Metoprolol Succ 25mg Ext Rel Tab) 25 mg PO HS [facility] Stop: 04/03/24 20:59 Last Admin: 03/05/24 21:02 Dose: 25 mg Ondansetron HCl (Ondansetron Inj 2 Mg/Ml 2 Ml Vial) 4 mg IV Q6H PRN PRN Reason: Nausea Stop: 04/03/24 03:19 Last Admin: 03/05/24 23:08 Dose: 4 mg Zolpidem Tartrate (Zolpidem Tartrate 5 Mg Tab) 5 mg PO HS PRN PRN Reason: Sleep Stop: 04/03/24 20:02 Last Admin: 03/05/24 21:52 Dose: 5 mg
--- NOTE | 2024-03-06 09:18 | Fluoroscopy Report ---
[place] GI series CLINICAL HISTORY: 58 years-old Female with abnormal CT abdomen. Follow-up study in a patient with ab normal wall thickening of the distal stomach. TECHNIQUE: A standard air contrast upper GI series was performed following administration of barium and effervescent crystals. Multiple spot fluoroscopic images were obtained and provided for review. COMPARISON STUDY: CT abdomen and pelvis 03/03/2024 FLUOROSCOPY TIME: 1.10 minutes. FLUOROSCOPY IMAGES: 20 Ka,r: 56.4 FINDINGS: The patient swallowed barium without difficulty. No aspiration was definitively visualized. The eso phagus distended normally with barium and effervescent crystals. No strictures, mucosal ulcerations, or intraluminal mass lesions were identified involving the esophagus. There was no appreciable aditya roesophageal reflux. Barium was seen to flow freely through the gastroesophageal junction. No activ e reflux was demonstrated with Valsalva maneuver. There is irregularity of the mucosa within the dist al gastric body and pylorus with contrast filled ulceration seen best on image 16 series 20. There is resultant prominent luminal narrowing of the stomach at this area. Contrast is seen flowing through this area of luminal narrowing into the duodenum without obstruction. The duodenal bulb and sweep appear unremarkable. IMPRESSION: 1. Confirmation of the mucosal irregularity with resultant luminal narrowing involving the distal sto mach with associated mucosal ulceration. Differential considerations include an ulcerative malignancy versus peptic ulcer disease. Findings could be correlated with endoscopy. 2. No evidence of gastric outlet obstruction or gastroesophageal reflux. ACT 112: Negative or not required by law. The above report was generated using voice recognition software. It may contain grammatical, syntax o r spelling errors. Electronically signed by: Anthony Penn M.D. 03/06/2024 9:16 AM
--- NOTE | 2024-03-06 11:07 | Gastroenterology Progress Note ---
Date of Service March 06, 2024 Assessment & Plan (1) Epigastric abdominal pain: Plan: Patient is a 58 y.o. female with a history of PUD dx in 10/30 admitted with epigastric and RUQ pain and abnormal imaging suggestive of PUD vs ulcerated mass. 1. Clear liquid diet today. 2. NPO after midnight. 3. EGD with Dr. Stephenson tomorrow 03/07 for further evaluation. 4. Continue Pantoprazole 40 mg IV BID. 5. Further recommendations will be made pending results of testing. Admission and Anticipated Discharge Date Admission Date: March 04, 2024 Supervising Physician Co-Signing Physician Notes Agree with MARK Aguilar as above Interviewed and Examined patient and agree with above Abd: Soft, tender RUQ, ND, +BS Continue current therapy and supportive care Proceed with EGD tomorrow Subjective Patient is reporting ongoing epigastric pain, which is mild. No nausea or vomiting. Status post UGI series which demonstrated: 1. Confirmation of the mucosal irregularity with resultant luminal narrowing involving the distal stomach with associated mucosal ulceration. Differential considerations include an ulcerative malignancy versus peptic ulcer disease. Findings could be correlated with endoscopy. There was no evidence for a gastric outlet obstruction. NPO for now. Continues PPI IV BID. Review of Systems Constitutional: no problem reported Gastrointestinal: as per Subjective / HPI Physical Exam Constitutional: WD/WN, vitals as above Respiratory: normal respiratory effort, lungs clear to auscultation Cardiovascular: Rate/Rhythm: regular rate and regular rhythm Gastrointestinal (Abdomen): normal bowel sounds, soft, nontender, no hepatosplenomegaly Psychiatric: A+Ox3, euthymic affect Results & Data Results & Data Vital Signs (Past 12 Hours) Vital Signs Temp Pulse Resp BP Pulse Ox O2 Del Method 03/06/24 07:42 36.2 C L 94 H 18 122/79 93 Room Air 03/06/24 05:26 36.8 C 03/05/24 23:15 37.8 C H PG Care Time/CCT Total # of Minutes Spent Total Time Spent with Patient: Total time spent is greater than 50% in coordination of care (as documented) at patient's floor/unit and/or counseling patient: Coding Level of Care Code 47602 SUB INP/OBS CARE 3/50MIN Diagnoses Epigastric abdominal pain R10.13
[2024-03-07 06:20] LABS: Hematocrit (blood only) 31.2 % (37.0-47.0); Hemoglobin 10.1 g/dl (12.0-16.0); Mean Corpuscular Hemoglobin 29.4 pg (25.0-34.0); Mean Corpuscular Hgb Conc 32.4 g/dL (32.0-36.0); Mean Platelet Volume 10.1 fL (9.4-12.4); Platelet Count 206 K/uL (130-400); RDW Coefficient of Variation 11.9 % (11.5-14.5); RDW Standard Deviation 39.8 fL (36.4-46.3); Red Blood Count 3.43 M/uL (4.20-5.40); White Blood Count 6.95 K/ul (4.8-10.8)
[2024-03-07 06:40] LABS: Albumin Globulin Ratio 0.9 (0.9-2); Albumin Level 2.9 gm/dl (3.4-5.0); BUN Creatinine Ratio 4.7 (10-20); Bilirubin,Total 0.4 mg/dl (0.2-1.0); Calcium 7.6 mg/dl (8.6-10.3); Creatinine Clr Calc Pharmacy 116.8 ml/min; Est GFR (Non-African American) 98.4 ml/min; Globulin 3.1 gm/dl (2.5-4.0); Magnesium 1.9 mg/dl (1.7-2.4); Phosphorus 2.7 mg/dl (2.5-4.9); Potassium 3.5 mmol/L (3.5-5.1)
--- NOTE | 2024-03-07 08:07 | Hospitalist Progress Note ---
Date of Service March 07, 2024 Assessment & Plan (1) Epigastric abdominal pain: Plan: 58 yo F w/ hypertension, history of perforated gastric ulcer comes because of abdominal pain going on for last 2 weeks and progressively getting worse. Patient is worried about again perforation ,called GI and her Protonix was increased to twice daily and there is a plan for CAT scan but as the the pain is getting worse she came to the ER today. Pain is located epigastric region radiating to the right upper quadrant region.Currently no nausea. Normal bowel and bladder movements. Denies any blood in the stools or black stools. No fevers. No chest pain or shortness of breath. No cough. No headache. No runny nose or sore throat. Currently resting comfortably and hemodynamic stable. Epigastric abdominal pain Radiating to right upper quadrant History of perforated gastric ulcer CT abdomen pelvis no perforation or abscess but shows thickening of the pyloric channel And also concern for persistent ulceration with distal gastritis Placed on IV Protonix 40 mg twice daily and IV Pepcid 20 mg twice dailyIV fluids Pain control Consulted GI - upper GI series obtained - 1. Confirmation of the mucosal irregularity with resultant luminal narrowing involving the distal stomach with associated mucosal ulceration. Differential considerations include an ulcerative malignancy versus peptic ulcer disease. Findings could be correlated with endoscopy. 2. No evidence of gastric outlet obstruction or gastroesophageal reflux. Now s/p EGD (03/07/2024) Findings: The esophagus was normal. A medium-sized, infiltrative, non-circumferential mass with no bleeding and no stigmata of recent bleeding was found in the gastric antrum. Biopsies were taken with a cold forceps for histology. The examined duodenum was normal. Impression: - Normal esophagus. 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 Biopsied. - Normal examined duodenum. Recommendation: - [facility] patient to [facility] for [facility] care. - Resume previous diet. - Continue present medications. - Await pathology results. Fever/ UTI Pt febrile overnight 03/05- 03/05 (denies having fever at home) UA checked by cyber security architect and c/w UTI, started empiric Rocephin, will cont. for now and will follow cultx ucultx w/ multiple bacteria, repeated ucultx, ucultx negat. Right ovarian cyst Needs follow-up Hypertension Continue losartan and metoprolol succinate Will monitor DVT prophylaxis SCDs for now Disposition Medical floor Full code Admission and Anticipated Discharge Date Admission Date: March 04, 2024 Subjective Pt seen in follow up of abd. pain, pyloric wall thickness Continues to have epigastric /RUQ pain but improved, pain still radiates to her back S/p upper GI series yesterday - discussed w/ GI - Case Now s/p EGD earlier today No chest pain, or shortness of breath. Currently afebrile. Pt denies urinary frequency or dysuria. Review of Systems Review of Systems: All systems reviewed & are unremarkable except as noted in Subjective Physical Exam Physical Exam: General- WD/WN F in NAD Head- atraumatic Eyes- PERRL. Neck- supple, no JVD. Lungs- clear to auscultation , no wheezing or crackles Heart- regular rhythm; no murmur Abdomen- normal bowel sounds, soft, tenderness in epigastric/RUQ region, mild guarding present, no distension seen. Extremities- no pretibial edema, no erythema seen Neuro- alert, oriented PERRL, EOMI; no facial palsy; no dysarthria; moves extremities. Results & Data Results & Data Vital Signs (Past 12 Hours) Vital Signs Temp Pulse Resp BP Pulse Ox O2 Del Method 03/07/24 07:42 37.6 C H 97 H 16 125/84 94 Room Air 03/06/24 20:30 84 94 Room Air Laboratory Results 03/07/24 Range/Units 05:54 WBC 6.95 (4.8-10.8) K/ul RBC 3.43 L (4.20-5.40) M/uL Hgb 10.1 L (12.0-16.0) g/dl Hct 31.2 L (37.0-47.0) % MCV 91.0 (80.0-100.0) fL MCH 29.4 (25.0-34.0) pg MCHC 32.4 (32.0-36.0) g/dL RDW Std Deviation 39.8 (36.4-46.3) fL RDW Coeff of Brenton 11.9 (11.5-14.5) % Plt Count 206 (130-400) K/uL MPV 10.1 (9.4-12.4) fL Sodium 140 (136-145) mmol/L Potassium 3.5 (3.5-5.1) mmol/L Chloride 106 (98-107) mmol/L Carbon Dioxide 29 (21-32) mmol/L Anion Gap 5 (3-11) BUN 3 L (6-23) mg/dl Creatinine 0.64 (0.6-1.2) mg/dl Est Cr Clr Drug Dosing 116.8 ml/min Est GFR ( Amer) 114.0 ml/min Est GFR (Non-Af Amer) 98.4 ml/min BUN/Creatinine Ratio 4.7 L (10-20) Glucose 118 H (70-99(Fasting)) mg/dl Calcium 7.6 L (8.6-10.3) mg/dl Phosphorus 2.7 (2.5-4.9) mg/dl Magnesium 1.9 (1.7-2.4) mg/dl Total Bilirubin 0.4 (0.2-1.0) mg/dl AST 12 L (13-39) U/L ALT 11 (7-52) U/L Alkaline Phosphatase 86 (34-104) U/L Total Protein 6.0 (6.0-8.3) gm/dl Albumin 2.9 L (3.4-5.0) gm/dl Globulin 3.1 (2.5-4.0) gm/dl Albumin/Globulin Ratio 0.9 (0.9-2) Medications Administered Current Inpatient Medications Hydromorphone HCl (Hydromorphone Inj 0.5 Mg/0.5 Ml Syr) 0.5 mg IV Q3H PRN PRN Reason: Severe Pain (Scale 7, 8, 9,10) Stop: 03/18/24 06:40 Last Admin: 03/07/24 02:53 Dose: 0.5 mg Dextrose/Sodium Chloride (D5w And 1/2nss) 1,000 mls @ 125 mls/hr IV .Q8H [facility] Stop: 04/03/24 03:19 Last Admin: 03/07/24 02:54 Dose: 125 mls/hr Pantoprazole Sodium 40 mg/ (Syringe) 10 mls @ 5 mls/min IV BID [facility] Stop: 04/03/24 08:59 Last Admin: 03/06/24 21:23 Dose: 5 mls/min Famotidine (Pepcid 20mg Iv Push) 20 mg in 5 mls @ 2.5 mls/min IV Q12H [facility] Stop: 04/03/24 08:59 Last Admin: 03/06/24 20:27 Dose: 2.5 mls/min Acetaminophen (Ofirmev) 1,000 mg in 100 mls @ 400 mls/hr IV Q8H PRN PRN Reason: Pain or Fever Stop: 03/07/24 20:01 Last Infusion: 03/06/24 20:03 Dose: Infused Ceftriaxone Sodium (Rocephin) 2,000 mg in 50 mls @ 100 mls/hr IV Q24H [facility] Stop: 03/14/24 20:14 Last Infusion: 03/06/24 20:58 Dose: Infused Metronidazole (Flagyl) 500 mg in 100 mls @ 100 mls/hr IV Q8H [facility]; Protocol Stop: 03/07/24 13:59 Last Infusion: 03/07/24 07:14 Dose: Infused Sodium Chloride (Nss) 500 mls @ 15 mls/hr IV .Q24H [facility] Stop: 03/08/24 07:29 Potassium Chloride (K Yg / Wtr) 10 meq in 100 mls @ 100 mls/hr IV Q1H [facility] Stop: 03/07/24 10:14 Losartan Potassium (Losartan Potassium 50 Mg Tab) 50 mg PO QAM [facility] Stop: 04/03/24 08:59 Last Admin: 03/06/24 07:37 Dose: 50 mg Metoprolol Succinate (Metoprolol Succ 25mg Ext Rel Tab) 25 mg PO HS [facility] Stop: 04/03/24 20:59 Last Admin: 03/06/24 20:27 Dose: 25 mg Ondansetron HCl (Ondansetron Inj 2 Mg/Ml 2 Ml Vial) 4 mg IV Q6H PRN PRN Reason: Nausea Stop: 04/03/24 03:19 Last Admin: 03/06/24 11:23 Dose: 4 mg Zolpidem Tartrate (Zolpidem Tartrate 5 Mg Tab) 5 mg PO HS PRN PRN Reason: Sleep Stop: 04/03/24 20:02 Last Admin: 03/06/24 20:27 Dose: 5 mg
--- NOTE | 2024-03-07 08:11 | Anesthesiology Consultation ---
Date of Service March 07, 2024 Assessment & Plan Chart Review Chart Review: Acceptable Risk for Surgery Consults Requested none ASA ASA2 Proposed Anesthesia Anesthesia Type: MAC Risk / Benefits Reviewed With: PT / POA / Parent / Guardian, Accepts Plan and Informed Consent Obtained History Surgery Operation Date: 03/07/24 16:30 Proposed Procedures p Esophagogastroduodenoscopy Dr Stephenson - Woody Stephenson, DO Height/Weight Height: 5 ft 8 in Weight: 97.2 kg Allergies Allergy/AdvReac Type Severity Reaction Status Date / Time Sulfa (Sulfonamide Allergy Unknown Unknown Verified 03/07/24 08:52 Antibiotics) Medications Home Medications Medication Instructions Recorded Confirmed Last Taken cholecalciferol (vitamin D3) 50 50 mcg PO DAILY 09/24/23 03/04/24 10/17/23 mcg (2,000 unit) tablet (Vitamin D3) losartan 50 mg tablet 50 mg PO QAM 09/24/23 03/04/24 10/18/23 08:00 metoprolol succinate 25 mg 25 mg PO HS 09/24/23 03/04/24 10/17/23 tablet,extended release 24 hr pantoprazole 40 mg tablet,delayed 40 mg PO BID #60 tabs 02/28/24 03/04/24 Unknown release ascorbic acid (vitamin C) 500 mg 500 mg PO DAILY 03/04/24 03/04/24 Unknown tablet (Vitamin C) Active Medications Generic Name Dose Route Start Last Admin Trade Name Freq PRN Reason Stop Dose Admin Hydromorphone HCl 0.5 mg 03/04/24 06:41 03/07/24 02:53 Hydromorphone Inj 0.5 Mg/0.5 Ml Syr IV 03/18/24 06:40 0.5 mg Q3H PRN Administration Severe Pain (Scale 7, 8, 9,10) Dextrose/Sodium Chloride 1,000 mls @ 125 mls/hr 03/04/24 03:20 03/07/24 02:54 D5w And 1/2nss IV 04/03/24 03:19 125 mls/hr .Q8H [facility] Administration Pantoprazole Sodium 40 mg/ 10 mls @ 5 mls/min 03/04/24 09:00 03/07/24 08:26 Syringe IV 04/03/24 08:59 5 mls/min BID [facility] Administration Famotidine 20 mg in 5 mls @ 2.5 mls/min 03/04/24 09:00 03/07/24 08:27 Pepcid 20mg Iv Push IV 04/03/24 08:59 2.5 mls/min Q12H [facility] Administration Acetaminophen 1,000 mg in 100 mls @ 400 mls/hr 03/04/24 20:02 03/06/24 20:03 Ofirmev IV 03/07/24 20:01 Infused Q8H PRN Infusion Pain or Fever Ceftriaxone Sodium 2,000 mg in 50 mls @ 100 mls/hr 03/04/24 20:15 03/06/24 20:58 Rocephin IV 03/14/24 20:14 Infused Q24H [facility] Infusion Metronidazole 500 mg in 100 mls @ 100 mls/hr 03/05/24 14:00 03/07/24 07:14 Flagyl IV 03/07/24 13:59 Infused Q8H [facility] Infusion Protocol Sodium Chloride 500 mls @ 15 mls/hr 03/07/24 07:30 03/07/24 09:00 Nss IV 03/08/24 07:29 15 mls/hr .Q24H [facility] Administration Losartan Potassium 50 mg 03/04/24 09:00 03/06/24 07:37 Losartan Potassium 50 Mg Tab PO 04/03/24 08:59 50 mg QAM [facility] Administration Metoprolol Succinate 25 mg 03/04/24 21:00 03/06/24 20:27 Metoprolol Succ 25mg Ext Rel Tab PO 04/03/24 20:59 25 mg HS [facility] Administration Ondansetron HCl 4 mg 03/04/24 03:20 03/06/24 11:23 Ondansetron Inj 2 Mg/Ml 2 Ml Vial IV 04/03/24 03:19 4 mg Q6H PRN Administration Nausea Zolpidem Tartrate 5 mg 03/04/24 20:03 03/06/24 20:27 Zolpidem Tartrate 5 Mg Tab PO 04/03/24 20:02 5 mg HS PRN Administration Sleep NPO Date Last Intake of Fluids: 03/06/24 Time Last Intake of Fluids: 23:59 Date Last Intake of Solids: 03/06/24 Time Last Intake of Solids: 23:59 Past Medical History Medical History (Updated 03/07/24 @ 09:06 by Chaparrita Ndiaye DO) Gastritis Gastric perforation Abdominal pain Gastric mass HTN (hypertension) Exercise / Class Metabolic Activity II 4-5 Yardwork/Stairs/Walk up hill Past Family History Family History Mother Hypertension Coronary heart disease fatal [place] age 60 Past Surgical History Surgical History (Updated 03/07/24 @ 09:07 by Chaparrita Ndiaye DO) History of colonoscopy Hx of wisdom tooth extraction Hx of tooth extraction 10/07/23 History of cardiac catheterization 07/2023. [facility] [place], no stents - follows w/ Fabiana Vinson [facility] cardio, [place] Past Anesthesia History No Hx of Anesthesia Complications and No Family Hx of Anesthesia Complications History of PONV No Hx of PONV and No Hx of Motion Sickness Social History Smoking Status: Never smoker Do You Dip or Chew Tobacco: No Hx Alcohol Use: No Alcohol type: hard liquor alcohol intake frequency: a few times a month Alcohol Intake Frequency Comment: pt stop ny alcohol intake 09/2023 Hx Substance Use: No substance use type: does not use Physical Exam Vital Signs Last Vital Signs Temp 37.7 C H 03/07/24 08:53 Pulse 91 H 03/07/24 08:53 Resp 16 03/07/24 08:53 BP 145/95 H 03/07/24 08:53 Pulse Ox 94 03/07/24 08:53 O2 Del Method Room Air 03/07/24 08:53 ENMT Mouth: no TMJ abnormality Thyromental Distance: > or= 3.5 Finger Breadths Mallampati Class: II Neck normal visual inspection and trachea midline; neck extension not limited Respiratory normal respiratory effort Auscultation: lungs clear to auscultation bilaterally Cardiovascular Rate/Rhythm: regular rate and regular rhythm Heart Sounds: no murmur Musculoskeletal Spine: normal cervical ROM Extremities: full ROM of extremities Neurologic moves all extremities Psychiatric Orientation: alert and oriented x 3 Testing Laboratory Results 03/07/24 05:54 03/07/24 05:54 Urine Color Yellow 03/03/24 22:42 Urine Appearance Cloudy (Clear) A 03/03/24 22:42 Urine pH 5.5 (4.5-7.5) 03/03/24 22:42 Ur Specific [place] 1.021 (1.000-1.030) 03/03/24 22:42 Urine Protein Trace (Negative) H 03/03/24 22:42 Urine Glucose (UA) Negative (Negative) 03/03/24 22:42 Urine Ketones 2+ (Negative) H 03/03/24 22:42 Urine Nitrite Negative (Negative) 03/03/24 22:42 Ur Leukocyte Esterase Trace (Negative) H 03/03/24 22:42 Urine WBC (Auto) 11-20 /hpf (0-5) H 03/03/24 22:42 Urine RBC (Auto) 3-5 /hpf (0-2) H 03/03/24 22:42 U Hyaline Cast (Auto) 3-5 /lpf (0-2) H 03/03/24 22:42 U Epithel Cells (Auto) 0-2 /hpf (0-2) 03/03/24 22:42 Urine Bacteria (Auto) 3+ (None Seen) H 03/03/24 22:42 03/05/24 15:11 Aerobic Blood Culture - Preliminary Blood No growth in Aerobic bottle after 24 hours. Anaerobic Blood Culture - Preliminary No growth in Anaerobic bottle after 24 hours. 03/05/24 15:14 Aerobic Blood Culture - Preliminary Blood No growth in Aerobic bottle after 24 hours. Anaerobic Blood Culture - Preliminary No growth in Anaerobic bottle after 24 hours. 03/05/24 14:39 Urine Culture - Preliminary Urine,Clean Catch No growth - Less than 1,000 colonies/mL, Final report to follow. 03/03/24 22:42 Urine Culture - Final Urine,Clean Catch More than three types of organisms present, all moderate counts mixed probable skin fidencio. No further identifications or sensitivities to follow. Electrocardiogram Date: 03/03/24 Findings: + NSR @ (100) Chest X-Ray Date: 03/03/24 Findings: + NAD
--- NOTE | 2024-03-07 08:52 | History & Physical Bridge Note ---
Date of Service March 07, 2024 History & Physical Bridge Note I have examined the patient, reviewed the History & Physical and in the interval since the performance of the History & Physical I have noted the following changes of clinical significance: Tolerated diet last evening. NPO post midnight. Reports some epigastric abdominal pain. No nausea or vomiting. PE:A&Ox3. RRR. Lungs CTA bilaterally. Abdomen soft, normal bowel sounds. Tender bilateral upper quadrants. A/P: 58 y.o. female with history of gastric ulcer dx 10/30 admitted with severe epi pain and abnormal imaging suggestive of persistent ulcer vs mass. -Proceed with EGD. -Continue Protonix 40 mg IV BID. -Further reccs pending results of testing. Supervising Physician Co-Signing Physician Notes Agree with MARK Aguilar as above Abd: Soft, tender RUQ, ND, +BS Continue current therapy and supportive care Proceed with EGD now.
[2024-03-07] MEDS: SODIUM CHLORIDE 0.9% 500 ML IV SCH ×2 (09:00→10:50)
--- NOTE | 2024-03-07 10:09 | Anesthesiology Progress Note ---
Date of Service March 07, 2024 Anesthesia Post Procedure Vital Signs Vital Signs: Temp Pulse Resp BP Pulse Ox O2 Del Method 03/07/24 10:06 88 16 140/88 93 Room Air 03/07/24 09:51 88 16 109/58 L 97 Room Air 03/07/24 08:53 37.7 C H 91 H 16 145/95 H 94 Room Air 03/07/24 07:42 37.6 C H 97 H 16 125/84 94 Room Air 03/06/24 20:30 84 94 Room Air 03/06/24 19:39 37.1 C 93 H 16 134/86 90 Room Air 03/06/24 14:25 37.1 C 102 H 17 141/87 H 93 Room Air Pain Intensity Right Upper Abdomen: Pain Intensity: 7 Transfer of Care Handoff Completed per policy Notes Mental Status: alert / awake / arousable Patient Amnestic to Procedure: Yes Nausea / Vomiting: adequately controlled Pain: adequately controlled Airway Patency, RR, SpO2: stable & adequate BP & HR: stable & adequate Hydration State: stable & adequate Anesthetic Complications: no major complications apparent and Pt Satisfied with anesthetic care
--- NOTE | 2024-03-07 10:10 | GI REPORT ---
Patient Name: Kamila Bañuelos Procedure Date: 03/07/2024 8:47 AM Date of : 1965 Admit Type: Inpatient Age: 58 Gender: Female Attending MD: Woody Stephenson DO, Procedure: Upper GI endoscopy Providers: Woody Stephenson DO Referring MD: Zeke Richard MD Indications: Abdominal pain in the right upper quadrant, Abnormal CT of the GI tract Medicines: Monitored Anesthesia Care Complications: No immediate complications. Estimated Blood Loss: Estimated blood loss: none. Procedure: Pre-Anesthesia Assessment: - Prior to the procedure, a History and Physical was performed, and patient medications and allergies were reviewed. The patient's tolerance of previous anesthesia was also reviewed. The risks and benefits of the procedure and the sedation options and risks were discussed with the patient. All questions were answered, and informed consent was obtained. Prior Anticoagulants: The patient has taken no anticoagulant or antiplatelet agents. ASA Grade Assessment: II - A patient with mild systemic disease. After reviewing the risks and benefits, the patient was deemed in satisfactory condition to undergo the procedure. After obtaining informed consent, the endoscope was passed under direct vision. Throughout the procedure, the patient's blood pressure, pulse, and oxygen saturations were monitored continuously. The Endoscope was introduced through the mouth, and advanced to the second part of duodenum. The upper GI endoscopy was accomplished without difficulty. The patient tolerated the procedure well. Findings: The esophagus was normal. A medium-sized, infiltrative, non-circumferential mass with no bleeding and no stigmata of recent bleeding was found in the gastric antrum. Biopsies were taken with a cold forceps for histology. The examined duodenum was normal. Impression: - Normal esophagus. 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 Biopsied. - Normal examined duodenum. Recommendation: - [facility] to [facility] for [facility] care. - Resume previous diet. - Continue present medications. - Await pathology results. Woody Stephenson DO 03/07/2024 10:10:30 AM This report has been signed electronically. Note Initiated On: 03/07/2024 8:47 AM Number of Addenda: 0 I attest to the content of the Intraoperative Record and orders documented therein, exceptions below {[id number]}
[2024-03-07] MEDS: LIDOCAINE 2% 2 ML VIAL/AMP(20MG/ML) INFIL ONE ×2 (10:59)
[2024-03-07] MEDS: PROPOFOL IV EMULSION 10 MG/ML 20 ML VIAL IV ONE (10:59)
[2024-03-07] MEDS: POTASSIUM CHLORIDE / WTR 10 MEQ/100 ML PLCT IV SCH (11:04)
[2024-03-08 05:59] LABS: Hematocrit (blood only) 31.3 % (37.0-47.0); Hemoglobin 10.1 g/dl (12.0-16.0); Mean Corpuscular Hemoglobin 29.5 pg (25.0-34.0); Mean Corpuscular Hgb Conc 32.3 g/dL (32.0-36.0); Mean Corpuscular Volume 91.5 fL (80.0-100.0); Mean Platelet Volume 9.8 fL (9.4-12.4); Platelet Count 227 K/uL (130-400); RDW Coefficient of Variation 11.9 % (11.5-14.5); RDW Standard Deviation 40.1 fL (36.4-46.3); Red Blood Count 3.42 M/uL (4.20-5.40); White Blood Count 6.23 K/ul (4.8-10.8)
[2024-03-08 06:17] LABS: Albumin Level 3.1 gm/dl (3.4-5.0); BUN Creatinine Ratio 4.8 (10-20); Bilirubin,Total 0.4 mg/dl (0.2-1.0); Calcium 7.8 mg/dl (8.6-10.3); Creatinine Clr Calc Pharmacy 120.6 ml/min; Est GFR (African American) 115.2 ml/min; Est GFR (Non-African American) 99.4 ml/min; Globulin 3.1 gm/dl (2.5-4.0); Magnesium 1.9 mg/dl (1.7-2.4); Phosphorus 3.8 mg/dl (2.5-4.9); Potassium 3.5 mmol/L (3.5-5.1); Total Protein 6.2 gm/dl (6.0-8.3)
[2024-03-08] MEDS: oxyCODONE HCL IR 5 MG TAB (IMMEDIATE RELEASE) PO PRN (09:48)
--- NOTE | 2024-03-08 11:54 | Gastroenterology Progress Note ---
Date of Service March 08, 2024 Assessment & Plan (1) Epigastric abdominal pain: Plan: Patient is a 58 y.o. female with a history of PUD dx in 10/30 admitted with epigastric and RUQ pain, with findings of gastric mass on EGD 03/07. 1. Ok to advance diet. 2. Continue Famotidine 20 mg BID. 3. Continue Pantoprazole 40 mg BID. 4. Await path as pending. 5. Discussed with Dr. Sims. Stable from GI perspective for discharge. Will sign off. Path to be communicated when available to discuss next best management steps. (2) Gastric mass: (3) Gastritis: Admission and Anticipated Discharge Date Admission Date: March 04, 2024 Subjective Patient is a 58 y.o. female s/p EGD yesterday by Dr. Stephenson with findings of gastric mass. She reports slightly worsened pain post procedure last evening but has since improved. Requesting diet advancement. No overt GIB. H&H stable. Path pending. Review of Systems Constitutional: no problem reported Gastrointestinal: as per Subjective / HPI Physical Exam Constitutional: well developed and well nourished Eyes: EOM intact bilaterally Neck: normal visual inspection Respiratory: normal respiratory effort Skin: normal color Psychiatric: A+Ox3, euthymic affect Results & Data Results & Data Vital Signs (Past 12 Hours) Vital Signs Temp Pulse Resp BP Pulse Ox O2 Del Method 03/08/24 05:30 36.7 C 78 16 132/82 95 Room Air PG Care Time/CCT Total # of Minutes Spent Total Time Spent with Patient: Total time spent is greater than 50% in coordination of care (as documented) at patient's floor/unit and/or counseling patient: Coding Level of Care Code 24871 SUB INP/OBS CARE 3/50MIN Diagnoses Epigastric abdominal pain R10.13 Gastric mass K31.89 Gastritis K29.70
--- NOTE | 2024-03-08 13:52 | Hospitalist Progress Note ---
Date of Service March 08, 2024 Assessment & Plan (1) Epigastric abdominal pain: Plan: per previous hospitalist notes with addendum: 58 yo F w/ hypertension, history of perforated gastric ulcer comes because of abdominal pain going on for last 2 weeks and progressively getting worse. Patient is worried about again perforation ,called GI and her Protonix was increased to twice daily and there is a plan for CAT scan but as the the pain is getting worse she came to the ER today. Pain is located epigastric region radiating to the right upper quadrant region.Currently no nausea. Normal bowel and bladder movements. Denies any blood in the stools or black stools. No fevers. No chest pain or shortness of breath. No cough. No headache. No runny nose or sore throat. Currently resting comfortably and hemodynamic stable. Epigastric abdominal pain Radiating to right upper quadrant History of perforated gastric ulcer CT abdomen pelvis no perforation or abscess but shows thickening of the pyloric channel And also concern for persistent ulceration with distal gastritis Placed on IV Protonix 40 mg twice daily and IV Pepcid 20 mg twice dailyIV fluids Pain control Consulted GI - upper GI series obtained - 1. Confirmation of the mucosal irregularity with resultant luminal narrowing involving the distal stomach with associated mucosal ulceration. Differential considerations include an ulcerative malignancy versus peptic ulcer disease. Findings could be correlated with endoscopy. 2. No evidence of gastric outlet obstruction or gastroesophageal reflux. Now s/p EGD (03/07/2024) Findings: The esophagus was normal. A medium-sized, infiltrative, non-circumferential mass with no bleeding and no stigmata of recent bleeding was found in the gastric antrum. Biopsies were taken with a cold forceps for histology. The examined duodenum was normal. Impression: - Normal esophagus. 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 Biopsied. - Normal examined duodenum. Recommendation: - Return patient to [facility] for [facility] care. - Resume previous diet. - Continue present medications. - Await pathology results. 03/08 abdominal pain improving advance diet ff up gastric biopsy result continue Protonix IV, Famotidine Fever/ UTI Pt febrile overnight 03/05- 03/05 (denies having fever at home) UA checked by general foreman and c/w UTI, started empiric Rocephin, will cont. for now and will follow cultx ucultx w/ multiple bacteria, repeated ucultx, ucultx negat. 03/08 continue Ceftriaxone Day 5 Right ovarian cyst Needs follow-up Hypertension Continue losartan and metoprolol succinate Will monitor DVT prophylaxis SCDs for now Disposition anticipate d/c home tomorrow if stable plan of care discussed with patient in detail and at length all questions answered she is understanding, agreeable, comfortable with the plan of care Admission and Anticipated Discharge Date Admission Date: March 04, 2024 Subjective ff up for gastric mass, etc seen resting in bed, comfortable states she feels improved today less abdominal pain requesting to advance diet no nausea, fever/chills no other new symptoms Review of Systems Review of Systems: all noted and negative except for above Physical Exam Physical Exam: General- oriented x 3, not in distress, speaks in sentences with no effort or accessory muscle use Eyes- anicteric Neck- no JVD Lungs- clear breath sounds bilaterally, no rales/wheezes Heart- normal rate, regular rhythm; no murmurs Abdomen- normal bowel sounds, nondistended, soft, nontender Extremities- no pretibial edema, no calf tenderness Neuro- alert, oriented x 3; no gross focal neurologic deficits Skin- warm & dry Results & Data Results & Data Vital Signs (Past 12 Hours) Vital Signs Temp Pulse Resp BP Pulse Ox O2 Del Method 03/08/24 05:30 36.7 C 78 16 132/82 95 Room Air all noted and reviewed including below
[2024-03-08] MEDS: ACETAMINOPHEN 325 MG TAB PO PRN (21:15)
[2024-03-09] MEDS: SUCRALFATE 1 GM/10 ML UDC PO SCH (15:41)
[2024-03-09] MEDS: HYDROCODONE/ACETAMOPHEN 5/325MG TAB PO PRN (16:20)
--- NOTE | 2024-03-09 16:41 | Hospitalist Progress Note ---
Date of Service March 09, 2024 Assessment & Plan (1) Epigastric abdominal pain: Plan: per previous hospitalist notes with addendum: 58 yo F w/ hypertension, history of perforated gastric ulcer comes because of abdominal pain going on for last 2 weeks and progressively getting worse. Patient is worried about again perforation ,called GI and her Protonix was increased to twice daily and there is a plan for CAT scan but as the the pain is getting worse she came to the ER today. Pain is located epigastric region radiating to the right upper quadrant region.Currently no nausea. Normal bowel and bladder movements. Denies any blood in the stools or black stools. No fevers. No chest pain or shortness of breath. No cough. No headache. No runny nose or sore throat. Currently resting comfortably and hemodynamic stable. Epigastric abdominal pain Radiating to right upper quadrant History of perforated gastric ulcer CT abdomen pelvis no perforation or abscess but shows thickening of the pyloric channel And also concern for persistent ulceration with distal gastritis Placed on IV Protonix 40 mg twice daily and IV Pepcid 20 mg twice dailyIV fluids Pain control Consulted GI - upper GI series obtained - 1. Confirmation of the mucosal irregularity with resultant luminal narrowing involving the distal stomach with associated mucosal ulceration. Differential considerations include an ulcerative malignancy versus peptic ulcer disease. Findings could be correlated with endoscopy. 2. No evidence of gastric outlet obstruction or gastroesophageal reflux. Now s/p EGD (03/07/2024) Findings: The esophagus was normal. A medium-sized, infiltrative, non-circumferential mass with no bleeding and no stigmata of recent bleeding was found in the gastric antrum. Biopsies were taken with a cold forceps for histology. The examined duodenum was normal. Impression: - Normal esophagus. 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 Biopsied. - Normal examined duodenum. Recommendation: - Return patient to [facility] for ongoing care. - Resume previous diet. - Continue present medications. - Await pathology results. 03/08 abdominal pain improving advance diet ff up gastric biopsy result continue Protonix IV, Famotidine 03/09 still having abdominal pain transition from Oxycodone to Hydrocodone continue PRN Dilaudid add Sucralfate continue IV Protonix and Famotidine Fever/ UTI Pt febrile overnight 03/05- 03/05 (denies having fever at home) UA checked by fitness consultant and c/w UTI, started empiric Rocephin, will cont. for now and will follow cultx ucultx w/ multiple bacteria, repeated ucultx, ucultx negat. 5/2 on Ceftriaxone Day 04/14 Right ovarian cyst Needs follow-up Hypertension Continue losartan and metoprolol succinate Will monitor DVT prophylaxis SCDs for now Disposition anticipate d/c home when abdominal pain controlled with PO meds, PO intake improves plan of care discussed with patient in detail and at length all questions answered she is understanding, agreeable, comfortable with the plan of care Admission and Anticipated Discharge Date Admission Date: March 04, 2024 Subjective ff up for gastric mass, etc seen resting in bed, not in distress still having 6-7/10 epigastric pain early satiety, poor appetite no BM yet no chest pain, dyspnea, palpitations, dizziness no other symptoms Review of Systems Review of Systems: all noted and negative except for above Physical Exam Physical Exam: General- oriented x 3, not in distress, speaks in sentences with no effort or accessory muscle use Eyes- anicteric Neck- no JVD Lungs- clear breath sounds bilaterally, no crackles/wheezing Heart- normal rate, regular rhythm; no murmurs Abdomen- normal bowel sounds, nondistended, soft, no tenderness Extremities- no pretibial edema, no calf tenderness Neuro- alert, oriented x 3; no gross focal neurologic deficits Skin- warm & dry Results & Data Results & Data Vital Signs (Past 12 Hours) Vital Signs Temp Pulse Resp BP Pulse Ox O2 Del Method 03/09/24 15:18 36.9 C 84 18 149/81 H 95 Room Air 03/09/24 07:22 37.1 C 78 18 135/88 96 Room Air all noted and reviewed including below
--- NOTE | 2024-03-10 19:43 | Hospitalist Progress Note ---
Date of Service March 10, 2024 delayed entry date of service noted above Assessment & Plan (1) Epigastric abdominal pain: Plan: per previous hospitalist notes with addendum: 58 yo F w/ hypertension, history of perforated gastric ulcer comes because of abdominal pain going on for last 2 weeks and progressively getting worse. Patient is worried about again perforation ,called GI and her Protonix was increased to twice daily and there is a plan for CAT scan but as the the pain is getting worse she came to the ER today. Pain is located epigastric region radiating to the right upper quadrant region.Currently no nausea. Normal bowel and bladder movements. Denies any blood in the stools or black stools. No fevers. No chest pain or shortness of breath. No cough. No headache. No runny nose or sore throat. Currently resting comfortably and hemodynamic stable. Epigastric abdominal pain Radiating to right upper quadrant History of perforated gastric ulcer CT abdomen pelvis no perforation or abscess but shows thickening of the pyloric channel And also concern for persistent ulceration with distal gastritis Placed on IV Protonix 40 mg twice daily and IV Pepcid 20 mg twice dailyIV fluids Pain control Consulted GI - upper GI series obtained - 1. Confirmation of the mucosal irregularity with resultant luminal narrowing involving the distal stomach with associated mucosal ulceration. Differential considerations include an ulcerative malignancy versus peptic ulcer disease. Findings could be correlated with endoscopy. 2. No evidence of gastric outlet obstruction or gastroesophageal reflux. Now s/p EGD (03/07/2024) Findings: The esophagus was normal. A medium-sized, infiltrative, non-circumferential mass with no bleeding and no stigmata of recent bleeding was found in the gastric antrum. Biopsies were taken with a cold forceps for histology. The examined duodenum was normal. Impression: - Normal esophagus. 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 Biopsied. - Normal examined duodenum. Recommendation: - Return patient to [facility] for ongoing care. - Resume previous diet. - Continue present medications. - Await pathology results. 03/08 abdominal pain improving advance diet ff up gastric biopsy result continue Protonix IV, Famotidine 03/09 still having abdominal pain transition from Oxycodone to Hydrocodone continue PRN Dilaudid add Sucralfate continue IV Protonix and Famotidine 03/10 Continue pain control Monitor closely Fever/ UTI Pt febrile overnight 03/05- 03/05 (denies having fever at home) UA checked by ent surgeon and c/w UTI, started empiric Rocephin, will cont. for now and will follow cultx ucultx w/ multiple bacteria, repeated ucultx, ucultx negat. 03/10 on Ceftriaxone Right ovarian cyst Needs follow-up Hypertension Continue losartan and metoprolol succinate Will monitor DVT prophylaxis SCDs for now Disposition anticipate d/c home when abdominal pain controlled with PO meds, PO intake improves plan of care discussed with patient in detail and at length all questions answered she is understanding, agreeable, comfortable with the plan of care Admission and Anticipated Discharge Date Admission Date: March 04, 2024 Subjective Follow-up gastric mass, etc. Seen resting in bed, not in distress Still having abdominal pain Able to tolerate p.o. intake No BM yet No other new symptom Review of Systems Review of Systems: all noted and negative except for above Physical Exam Physical Exam: General- oriented x 3, not in distress, speaks in sentences with no effort or accessory muscle use Eyes- anicteric Neck- no JVD Lungs- clear breath sounds bilaterally, no crackles/wheezing Heart- normal rate, regular rhythm; no murmurs Abdomen- normal bowel sounds, nondistended, soft, no tenderness Extremities- no pretibial edema, no calf tenderness Neuro- alert, oriented x 3; no gross focal neurologic deficits Skin- warm & dry Results & Data Results & Data Vital Signs (Past 12 Hours) Vital Signs Temp Pulse Resp BP Pulse Ox O2 Del Method 03/10/24 14:58 36.8 C 88 16 157/97 H 97 Room Air all noted and reviewed including below
[2024-03-11 07:05] LABS: Iron 17 mcg/dl (35-150); Transferrin 112 mg/dl (200-360)
[2024-03-11 07:11] LABS: Folate (Folic Acid),Ser orPlas 12.42 ng/ml (>5.38)
[2024-03-11] MEDS: POLYETHYLENE (MIRALAX) 17 GM PACK PO SCH (08:57)
--- NOTE | 2024-03-11 17:56 | Oncology Consultation ---
Date of Consultation March 11, 2024 Assessment & Plan (1) Gastric adenocarcinoma: I had a very lengthy discussion with the patient. I reviewed the images from the endoscopy as well as the CT scan with the patient. Firstly she will need completion of staging workup. This will include a PET CT scan. If the PET/CT identifies that the cancer is restricted to the stomach in that case I will have further treatment recommendations. She most likely would need to be evaluated by one of my surgical oncology colleagues. I mentioned [facility] however the patient has plans to see other surgeon the tertiary care center such as [facility] versus [facility]. In any case her cancer would need to be managed in a multidisciplinary way with opinion from medical oncology and surgical oncology. I explained to the patient she most likely will be getting chemotherapy either perioperatively or definitively if this is metastatic cancer. I explained to the patient that she will most likely need a Mediport for facilitation of chemotherapy which may be delivered perioperatively versus for palliative intent. Explained to the patient that she will need a PET scan. Plan Medical oncology will continue to follow the patient make appropriate recommenda tions. Our office will try to arrange for the PET CT scan and if needed we will also get a port placed. She will need a surgical oncology opinion which can be obtained either through [facility] versus any other tertiary center such as [facility] versus [facility] or other cancer centers. History of Present Illness Reason for Consultation: Gastric cancer Attending Physician: Braydon Sims MD History of Present Illness The patient is a very pleasant 58-year-old woman who presented to the hospital with abdominal pain. She underwent an endoscopy which revealed a medium size infiltrating mass of the stomach. This was biopsied and was consistent with gastric adenocarcinoma. Medical oncology has been consulted to assist in management of this patient with newly identified stomach cancer. is currently the patient continues to have intermittent abdominal pain, stomach upset. Reports no fever or chills. Reports nausea vomiting. Allergies Allergy/AdvReac Type Severity Reaction Status Date / Time Sulfa (Sulfonamide Allergy Unknown Unknown Verified 03/07/24 08:52 Antibiotics) Home Medications Medication Instructions Recorded Confirmed Type cholecalciferol (vitamin D3) 50 50 mcg PO DAILY 09/24/23 03/04/24 History mcg (2,000 unit) tablet (Vitamin D3) losartan 50 mg tablet 50 mg PO QAM 09/24/23 03/04/24 History metoprolol succinate 25 mg 25 mg PO HS 09/24/23 03/04/24 History tablet,extended release 24 hr pantoprazole 40 mg tablet,delayed 40 mg PO BID #60 tabs 02/28/24 03/04/24 Rx release ascorbic acid (vitamin C) 500 mg 500 mg PO DAILY 03/04/24 03/04/24 History tablet (Vitamin C) Patient History Medical History (Updated 03/11/24 @ 17:57 by Remi Phan MD) Gastritis Gastric perforation Abdominal pain Gastric mass HTN (hypertension) Surgical History (Updated 03/07/24 @ 09:07 by Chaparrita Ndiaye DO) History of colonoscopy Hx of wisdom tooth extraction Hx of tooth extraction 10/07/23 History of cardiac catheterization 07/2023. PH Mar[facility], no stents - follows w/ Fabiana Vinson [facility] cardio, Wilfred[facility] Family History Mother Hypertension Coronary heart disease fatal [place] age 60 Social History Smoking Status: Never smoker Second Hand Exposure: No; Do You Dip or Chew Tobacco: No; Hx Alcohol Use: No Hx Substance Use: No Preferred Language: Frisian Communication Ability: Effective Mandrel Press Hand Required: No Beliefs That Will Affect Care: None Current Living Situation: Spouse Feels Safe at Home: Yes Assistive Devices: None Review of Systems Review of Systems: All systems reviewed & are unremarkable except as noted in HPI & below Constitutional: as per Subjective / HPI Eyes: as per Subjective / HPI Ear, Nose, Mouth, Throat: as per Subjective / HPI Respiratory: as per Subjective / HPI Cardiovascular: as per Subjective / HPI Gastrointestinal: as per Subjective / HPI Genitourinary: as per Subjective / HPI Musculoskeletal: as per Subjective / HPI Integumentary: as per Subjective / HPI Neurologic: as per Subjective / HPI Endocrine: as per Subjective / HPI Hematologic / Lymphatic: as per Subjective / HPI Allergy / Immunological: as per Subjective / HPI Physical Exam Constitutional: WD/WN, vitals as above Eyes: PERRL, conjunctivae normal, anicteric sclerae ENMT: external ear and nose normal, oropharynx normal Neck: trachea midline, no thyromegaly Respiratory: normal respiratory effort, lungs clear to auscultation Cardiovascular: RRR, no murmur, no edema Gastrointestinal (Abdomen): normal bowel sounds, soft, nontender, no hepatosplenomegaly Musculoskeletal: no cyanosis or clubbing, extremities motor strength 5/5 Skin: no rashes, warm and dry Results & Data Vital Signs (Past 12 Hours) Vital Signs Temp Pulse Resp BP Pulse Ox O2 Del Method 03/11/24 16:39 37.2 C 96 H 16 124/85 98 Room Air 03/11/24 07:24 37.4 C 88 16 144/89 H 93 Room Air
[2024-03-11] MEDS: LORazepam 0.5 MG TAB PO PRN (19:28)
--- NOTE | 2024-03-12 10:59 | Hospitalist Progress Note ---
Date of Service March 12, 2024 Assessment & Plan (1) Epigastric abdominal pain: Plan: per previous hospitalist notes with addendum: 58 yo F w/ hypertension, history of perforated gastric ulcer comes because of abdominal pain going on for last 2 weeks and progressively getting worse. Patient is worried about again perforation ,called GI and her Protonix was increased to twice daily and there is a plan for CAT scan but as the the pain is getting worse she came to the ER today. Pain is located epigastric region radiating to the right upper quadrant region.Currently no nausea. Normal bowel and bladder movements. Denies any blood in the stools or black stools. No fevers. No chest pain or shortness of breath. No cough. No headache. No runny nose or sore throat. Currently resting comfortably and hemodynamic stable. Epigastric abdominal pain Radiating to right upper quadrant History of perforated gastric ulcer CT abdomen pelvis no perforation or abscess but shows thickening of the pyloric channel And also concern for persistent ulceration with distal gastritis Placed on IV Protonix 40 mg twice daily and IV Pepcid 20 mg twice dailyIV fluids Pain control Consulted GI - upper GI series obtained - 1. Confirmation of the mucosal irregularity with resultant luminal narrowing involving the distal stomach with associated mucosal ulceration. Differential considerations include an ulcerative malignancy versus peptic ulcer disease. Findings could be correlated with endoscopy. 2. No evidence of gastric outlet obstruction or gastroesophageal reflux. Now s/p EGD (03/07/2024) Findings: The esophagus was normal. A medium-sized, infiltrative, non-circumferential mass with no bleeding and no stigmata of recent bleeding was found in the gastric antrum. Biopsies were taken with a cold forceps for histology. The examined duodenum was normal. Impression: - Normal esophagus. 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 Biopsied. - Normal examined duodenum. Recommendation: - [facility]. - Resume previous diet. - Continue present medications. - Await pathology results. 03/08 abdominal pain improving advance diet ff up gastric biopsy result continue Protonix IV, Famotidine 03/09 still having abdominal pain transition from Oxycodone to Hydrocodone continue PRN Dilaudid add Sucralfate continue IV Protonix and Famotidine 03/11 Will increase [place] to 7.5 mg for better pain control Continue to monitor closely Patient plans to seek second opinion with a specialist in [place] Iron deficiency anemia Iron level 17 Venofer ordered Ferrous sulfate ordered Will need to be followed closely Fever/ UTI Pt febrile overnight 03/05- 03/05 (denies having fever at home) UA checked by day care teacher and c/w UTI, started empiric Rocephin, will cont. for now and will follow cultx ucultx w/ multiple bacteria, repeated ucultx, ucultx negat. 03/11 Completed ceftriaxone course Right ovarian cyst Needs follow-up Hypertension Continue losartan and metoprolol succinate Will monitor DVT prophylaxis SCDs for now Encouraged to ambulate frequently Disposition anticipate d/c home when abdominal pain controlled with PO meds, PO intake improves plan of care discussed with patient and her in detail all questions answered They are understanding, agreeable, comfortable with the plan of care Admission and Anticipated Discharge Date Admission Date: March 04, 2024 Subjective Follow-up for gastric mass, etc. Seen resting in bed, sitting up, not in distress, comfortable States she still has some abdominal pain, gradually improving Tolerating diet well, positive BM yesterday Was having anxiety overnight after discussion held with oncologist earlier in the evening Did not sleep well No other new symptoms Review of Systems Review of Systems: all noted and negative except for above Physical Exam Physical Exam: General- oriented x 3, not in distress, speaks in sentences with no effort or accessory muscle use Eyes- anicteric Neck- no JVD Lungs- clear breath sounds bilaterally, no crackles, no wheezing noted Heart- normal rate, regular rhythm; no murmurs Abdomen- normal bowel sounds, nondistended, soft, nontender Extremities- no pretibial edema, no calf tenderness Neuro- alert, oriented x 3; no gross focal neurologic deficits Skin- warm & dry Results & Data Results & Data Vital Signs (Past 12 Hours) Vital Signs Temp Pulse Resp BP Pulse Ox O2 Del Method 03/12/24 07:20 37.0 C 86 16 134/82 94 Room Air all noted and reviewed including below
--- NOTE | 2024-03-12 11:06 | Hospitalist Progress Note ---
Date of Service March 12, 2024 delayed entry date of service 03/11/24 Assessment & Plan (1) Epigastric abdominal pain: Plan: per previous hospitalist notes with addendum: 58 yo F w/ hypertension, history of perforated gastric ulcer comes because of abdominal pain going on for last 2 weeks and progressively getting worse. Patient is worried about again perforation ,called GI and her Protonix was increased to twice daily and there is a plan for CAT scan but as the the pain is getting worse she came to the ER today. Pain is located epigastric region radiating to the right upper quadrant region.Currently no nausea. Normal bowel and bladder movements. Denies any blood in the stools or black stools. No fevers. No chest pain or shortness of breath. No cough. No headache. No runny nose or sore throat. Currently resting comfortably and hemodynamic stabl e. Epigastric abdominal pain Radiating to right upper quadrant History of perforated gastric ulcer CT abdomen pelvis no perforation or abscess but shows thickening of the pyloric channel And also concern for persistent ulceration with distal gastritis Placed on IV Protonix 40 mg twice daily and IV Pepcid 20 mg twice dailyIV fluids Pain control Consulted GI - upper GI series obtained - 1. Confirmation of the mucosal irregularity with resultant luminal narrowing involving the distal stomach with associated mucosal ulceration. Differential considerations include an ulcerative malignancy versus peptic ulcer disease. Findings could be correlated with endoscopy. 2. No evidence of gastric outlet obstruction or gastroesophageal reflux. Now s/p EGD (03/07/2024) Findings: The esophagus was normal. A medium-sized, infiltrative, non-circumferential mass with no bleeding and no stigmata of recent bleeding was found in the gastric antrum. Biopsies were taken with a cold forceps for histology. The examined duodenum was normal. Impression: - Normal esophagus. 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 Biopsied. - Normal examined duodenum. Recommendation: - [facility] to [facility]. - Resume previous diet. - Continue present medications. - Await pathology results. 03/08 abdominal pain improving advance diet ff up gastric biopsy result continue Protonix IV, Famotidine 03/09 still having abdominal pain transition from Oxycodone to Hydrocodone continue PRN Dilaudid add Sucralfate continue IV Protonix and Famotidine 03/10 Continue pain control Monitor closely 03/11 continue pain control awaiting Oncology service eval Fever/ UTI Pt febrile overnight 03/05- 03/05 (denies having fever at home) UA checked by driver merchandiser and c/w UTI, started empiric Rocephin, will cont. for now and will follow cultx ucultx w/ multiple bacteria, repeated ucultx, ucultx negat. 03/11 on Ceftriaxone Right ovarian cyst Needs follow-up Hypertension Continue losartan and metoprolol succinate Will monitor DVT prophylaxis SCDs for now Disposition anticipate d/c home when abdominal pain controlled with PO meds, PO intake improves plan of care discussed with patient in detail and at length all questions answered she is understanding, agreeable, comfortable with the plan of care Admission and Anticipated Discharge Date Admission Date: March 04, 2024 Subjective Follow-up for gastric mass, etc. Seen resting in bed, comfortable, not in distress Still having some epigastric pain radiating to the right side No BMs yet, positive flatus No fevers or chills No nausea vomiting No other new symptoms Review of Systems Review of Systems: all noted and negative except for above Physical Exam Physical Exam: General- oriented x 3, not in distress, speaks in sentences with no effort or accessory muscle use Eyes- anicteric Neck- no JVD Lungs- clear breath sounds bilaterally, no crackles or wheezing Heart- normal rate, regular rhythm; no murmurs Abdomen- normal bowel sounds, nondistended, soft, no tenderness Extremities- no pretibial edema, no calf tenderness Neuro- alert, oriented x 3; no gross focal neurologic deficits Skin- warm & dry Results & Data Results & Data Vital Signs (Past 12 Hours) Vital Signs Temp Pulse Resp BP Pulse Ox O2 Del Method 03/12/24 07:20 37.0 C 86 16 134/82 94 Room Air
[2024-03-12] MEDS: IRON SUCROSE 300 MG in SODIUM CHLORIDE 0.9% 250 ML IV ONE (11:47)
[2024-03-12] MEDS: HYDROCODONE/ACETAMINOPHEN 7.5/325MG TAB PO PRN (16:36)
[2024-03-12] MEDS: FERROUS SULFATE 325 MG TAB PO SCH (16:37)
[2024-03-13] MEDS: MAGNESIUM HYDROXIDE SUSP 30 ML UDC PO ONE (17:26)
--- NOTE | 2024-03-13 19:01 | Hospitalist Progress Note ---
Date of Service March 13, 2024 Assessment & Plan (1) Epigastric abdominal pain: Plan: per previous hospitalist notes with addendum: 58 yo F w/ hypertension, history of perforated gastric ulcer comes because of abdominal pain going on for last 2 weeks and progressively getting worse. Patient is worried about again perforation ,called GI and her Protonix was increased to twice daily and there is a plan for CAT scan but as the the pain is getting worse she came to the ER today. Pain is located epigastric region radiating to the right upper quadrant region.Currently no nausea. Normal bowel and bladder movements. Denies any blood in the stools or black stools. No fevers. No chest pain or shortness of breath. No cough. No headache. No runny nose or sore throat. Currently resting comfortably and hemodynamic stable. Epigastric abdominal pain Radiating to right upper quadrant History of perforated gastric ulcer CT abdomen pelvis no perforation or abscess but shows thickening of the pyloric channel And also concern for persistent ulceration with distal gastritis Placed on IV Protonix 40 mg twice daily and IV Pepcid 20 mg twice dailyIV fluids Pain control Consulted GI - upper GI series obtained - 1. Confirmation of the mucosal irregularity with resultant luminal narrowing involving the distal stomach with associated mucosal ulceration. Differential considerations include an ulcerative malignancy versus peptic ulcer disease. Findings could be correlated with endoscopy. 2. No evidence of gastric outlet obstruction or gastroesophageal reflux. Now s/p EGD (03/07/2024) Findings: The esophagus was normal. A medium-sized, infiltrative, non-circumferential mass with no bleeding and no stigmata of recent bleeding was found in the gastric antrum. Biopsies were taken with a cold forceps for histology. The examined duodenum was normal. Impression: - Normal esophagus. 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 Biopsied. - Normal examined duodenum. Recommendation: - [facility] to [facility] care. - Resume previous diet. - Continue present medications. - Await pathology results. 03/08 abdominal pain improving advance diet ff up gastric biopsy result continue Protonix IV, Famotidine 03/09 still having abdominal pain transition from Oxycodone to Hydrocodone continue PRN Dilaudid add Sucralfate continue IV Protonix and Famotidine 03/10 Continue pain control Monitor closely 03/11 continue pain control awaiting Oncology service eval 03/13 pain better controlled with [place] monitor Fever/ UTI Pt febrile overnight 03/05- 03/05 (denies having fever at home) UA checked by lidar scientist and c/w UTI, started empiric Rocephin, will cont. for now and will follow cultx ucultx w/ multiple bacteria, repeated ucultx, ucultx negat. resolved Right ovarian cyst Needs follow-up Hypertension Continue losartan and metoprolol succinate Will monitor DVT prophylaxis SCDs for now Disposition anticipate d/c home when abdominal pain controlled with PO meds, PO intake improves plan of care discussed with patient in detail and at length all questions answered she is understanding, agreeable, comfortable with the plan of care Admission and Anticipated Discharge Date Admission Date: March 04, 2024 Subjective ff up for gastric mass, etc seen resting in bed, comfortable sitting up pain improving no nausea no fever/chills no other symptoms Review of Systems Review of Systems: all noted and negative except for above Physical Exam Physical Exam: General- oriented x 3, not in distress, speaks in sentences with no effort or accessory muscle use Eyes- anicteric Neck- no JVD Lungs- clear breath sounds bilaterally, no crackles/wheezing Heart- normal rate, regular rhythm; no murmurs Abdomen- normal bowel sounds, nondistended, soft, nontender Extremities- no pretibial edema, no calf tenderness Neuro- alert, oriented x 3; no gross focal neurologic deficits Skin- warm & dry Results & Data Results & Data Vital Signs (Past 12 Hours) Vital Signs Temp Pulse Resp BP Pulse Ox O2 Del Method 03/13/24 15:02 36.8 C 80 18 125/83 95 Room Air 03/13/24 07:07 36.5 C 81 17 119/81 94 Room Air all noted and reviewed including below
== END 2024-03-14 16:02 | disposition home or self-care (01) | DRG 375 ==
LOC: ED 22:14 → SUATTDRO 03-04 02:08 → 3E 03-04 02:08

== ENCOUNTER 2024-04-27 13:19 | Inpatient (IN) ==
--- NOTE | 2024-04-27 13:57 | Emergency Department Note ---
Impression & Plan Nausea & vomiting ADMIT ED Provider Note HPI: History obtained from patient. The patient is a 58-year-old female who presents emergency department with a chief complaint of nausea and vomiting as well as abdominal pain. Patient states she has had the symptoms for the past several days. Patient states she has also been having intermittent episodes of lightheadedness with her vomiting. Patient denies any chest pain or shortness of breath. Patient states she does have recent diagnosis of gastric adenocarcinoma but has not yet started any chemo or radiation therapy. She has been following with multiple providers at [facility]. Patient was recently admitted at [facility] in [place] in late March over concern for potentially a perforated gastric antrum, per review patient did not have any surgical intervention performed aside from laparoscopic washout procedures with benign cytology. Patient states that she is to start chemotherapy before any surgical interventions will be performed. On arrival here to the ED the patient is hemodynamically stable, she appears to be in mild distress secondary to discomfort and nausea but otherwise is alert and saturating well on room air. Patient denies any hematemesis, denies any blood per rectum or diarrhea. Patient states that she has had diminished p.o. intake over the past several days secondary to her discomfort and nausea. ROS: - Per HPI Differential Diagnosis: Perforated viscus, small bowel obstruction, gastric outlet syndrome, ischemic bowel, gastroenteritis, intra-abdominal abscess, sepsis, amongst other potential pathologies. *Outpatient medications and allergy history reviewed. 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 Lab work shows no leukocytosis, hemoglobin is normal, platelet count is normal, CMP does not show any critical findings, serum bicarbonate level is mildly reduced at 20, there is no acute kidney injury, lactic acid level is normal, bilirubin is mildly elevated 1.3 without significant transaminitis. Lipase is normal. CT imaging of the abdomen pelvis was performed that shows mostly similar findings to previous CT imaging with contained perforation along the inferior aspect of the distal stomach. Fluid collection noted is decreased in size in comparison to 03/31. There is also mention of potential fistulous track extending from the transverse colon. Patient denies any recent feculent emesis. Patient appears well on my reassessment, she states she is feeling improved following IV morphine and IV Zofran. I did discuss the patient's presentation and CT imaging results with the on-call general surgery provider at [facility], Dr. De Leon, who states that transfer is not indicated at this time as there is no acute surgical intervention required. She states overall the CT imaging sounds as if it is largely unchanged from previous and there would be no plan for any acute surgical interventions. She recommends the patient be observed for symptomatic care if needed and follow-up as scheduled for initiation of chemotherapy which general surgery states would be preferable to start prior to any surgical interventions. I discussed this option with the patient and her , they would prefer to be admitted here at [facility] for symptomatic care and monitoring overnight. Given her abdominal discomfort as well as nausea and vomiting I do think this is reasonable. She was given IV fluids here in the ED. [facility] hospitalist service was consulted, case was discussed with the on-call midlevel provider, Molly Begum PA-C, patient was accepted to the inpatient service under the care of Dr. Nieves. Consultants/Discussions held with other healthcare providers: -General Surgery, Dr. De Leon (tertiary center/[facility]) -Hospitalist, Dr. Nieves Disposition discussion held by myself with: -Patient and at bedside Diagnosis: 1. Abdominal pain, acute on chronic 2. History of gastric adenocarcinoma with contained perforation of the stomach 3. Nausea and vomiting, acute 4. Episodic lightheadedness, acute Disposition: Admission Sherif Lucio DO Emergency Medicine Past Med/Surg History Problem List (Updated 04/27/24 @ 17:01 by Sherif Lucio DO) Nausea & vomiting (Acute) Gastric adenocarcinoma (Acute) Gastric mass Gastritis Abdominal pain Gastric perforation (Acute) Epigastric abdominal pain (Acute) Encounter for pre-operative examination Epigastric abdominal pain (Acute) Abnormal CT scan (Acute) Gastric wall thickening (Acute) HTN (hypertension) Surgical History History of colonoscopy Hx of wisdom tooth extraction Hx of tooth extraction 10/07/23 History of cardiac catheterization 07/2023. [facility], no stents - follows w/ Fabiana Vinson [facility] cardio, Wilfredo Family History Mother Hypertension Coronary heart disease fatal [place] age 60 Social History Smoking Status: Never smoker Second Hand Exposure: No; Do You Dip or Chew Tobacco: No; Hx Alcohol Use: No Hx Substance Use: No Preferred Language: Sami Communication Ability: Effective Compound Worker Required: No Beliefs That Will Affect Care: Orthodox marital status: Current Living Situation: Spouse current occupational status: employed current occupation: [employer] How many Children do You have: 0 Feels Safe at Home: Yes during the past year weight has: decreased > 10 lbs Assistive Devices: None Allergies Allergies Allergy/AdvReac Type Severity Reaction Status Date / Time Sulfa (Sulfonamide Allergy Unknown Unknown Verified 04/27/24 16:59 Antibiotics) Home Meds Home Medications Medication Instructions Recorded Confirmed losartan 50 mg tablet 50 mg PO QAM 09/24/23 04/27/24 metoprolol succinate 25 mg 25 mg PO HS 09/24/23 04/27/24 tablet,extended release 24 hr Previous Rx's Medication Instructions Recorded pantoprazole 40 mg tablet,delayed 40 mg PO BID #60 tabs 02/28/24 release ondansetron HCl 4 mg tablet 4 mg PO Q6H PRN nausea and 03/14/24 vomiting #14 tabs Results & Data (ED) Vital Signs Vital Signs - 24 hr 04/27/24 13:33 04/27/24 14:30 04/27/24 15:16 Temperature 37.3 C Temperature Source Skin Pulse Rate 124 H 84 89 Pulse Rate from SpO2 Sensor 84 Respiratory Rate 20 16 Respiratory Effort / Characteristics Non-Labored Spontaneous Respiratory Depth Normal Blood Pressure 105/71 Blood Pressure Mean 82 Pulse Oximetry 20 L 98 Oxygen Delivery Method Room Air Sepsis Recent Fever Within 48 Hours No Sepsis New/Unexplained Change in Mental Status N/A Sepsis Action Taken by Nursing No Action Required 04/27/24 15:36 04/27/24 16:30 Temperature Temperature Source Pulse Rate 91 H 91 H Pulse Rate from SpO2 Sensor 91 H 90 Respiratory Rate 12 14 Respiratory Effort / Characteristics Respiratory Depth Blood Pressure 141/81 H Blood Pressure Mean 101 Pulse Oximetry 95 98 Oxygen Delivery Method Room Air Room Air Sepsis Recent Fever Within 48 Hours Sepsis New/Unexplained Change in Mental Status Sepsis Action Taken by Nursing Laboratory Data 04/27/24 14:12 04/27/24 14:12 Lab Results 04/27/24 04/27/24 Range/Units 14:12 16:35 WBC 9.13 (4.8-10.8) K/ul RBC 4.23 (4.20-5.40) M/uL Hgb 12.1 (12.0-16.0) g/dl Hct 37.2 (37.0-47.0) % MCV 87.9 (80.0-100.0) fL MCH 28.6 (25.0-34.0) pg MCHC 32.5 (32.0-36.0) g/dL RDW Std Deviation 49.6 H (36.4-46.3) fL RDW Coeff of Brenton 15.6 H (11.5-14.5) % Plt Count 292 (130-400) K/uL MPV 10.6 (9.4-12.4) fL Immature Gran % (Auto) 0.3 % Neut % (Auto) 72.5 % Lymph % (Auto) 18.5 % [place] % (Auto) 8.0 % Eos % (Auto) 0.4 % Baso % (Auto) 0.3 % Neut # (Auto) 6.61 H (1.40-6.50) K/uL Lymph # (Auto) 1.69 (1.20-3.40) K/uL [place] # (Auto) 0.73 H (0.11-0.59) K/uL Eos # (Auto) 0.04 (0.00-0.50) K/uL Baso # (Auto) 0.03 (0.00-0.20) K/uL Immature Gran # (Auto) 0.03 (0.01-0.20) K/uL Sodium 138 (136-145) mmol/L Potassium 3.5 (3.5-5.1) mmol/L Chloride 102 (98-107) mmol/L Carbon Dioxide 20 L (21-32) mmol/L Anion Gap 16 H (3-11) BUN 20 (6-23) mg/dl Creatinine 0.96 (0.6-1.2) mg/dl Est Cr Clr Drug Dosing 72.7 ml/min Est GFR ( Amer) 75.6 ml/min Est GFR (Non-Af Amer) 65.2 ml/min BUN/Creatinine Ratio 20.8 H (10-20) Glucose 90 (70-99(Fasting)) mg/dl Lactate 1.7 1.4 (0.4-2.0) mmol/L Calcium 9.4 (8.6-10.3) mg/dl Total Bilirubin 1.3 H (0.2-1.0) mg/dl AST 21 (13-39) U/L ALT 21 (7-52) U/L Alkaline Phosphatase 122 H (34-104) U/L Total Protein 8.0 (6.0-8.3) gm/dl Albumin 4.0 (3.4-5.0) gm/dl Globulin 4.0 (2.5-4.0) gm/dl Albumin/Globulin Ratio 1.0 (0.9-2) Lipase 13 (11-82) U/L Administered Medications Discontinued Medications Sodium Chloride (Nss) 1,000 mls @ 999 mls/hr IV .Q1H1M STA Stop: 04/27/24 14:52 Last Infusion: 04/27/24 15:42 Dose: Infused [place] [facility] [place]: 04/27/24 14:20 Dose: 999 mls/hr Documented By: [facility] Sodium Chloride (Nss) 1,000 mls @ 999 mls/hr IV .Q1H1M ONE Stop: 04/27/24 16:49 Last Admin: 04/27/24 16:30 Dose: 999 mls/hr Documented By: [facility] Ioversol (Optiray 320 100ml) 93 ml IV ONCE ONE Stop: 04/27/24 16:00 Last Admin: 04/27/24 16:00 Dose: 93 ml Documented By: SUSAN Morphine Sulfate (Morphine Sulfate 4 Mg/Ml 1 Ml Carp\Vial) 4 mg IV NOW STA Stop: 04/27/24 13:53 Last Admin: 04/27/24 14:20 Dose: 4 mg Documented By: [facility] [place] Morphine Sulfate (Morphine Sulfate 4 Mg/Ml 1 Ml Carp\Vial) 4 mg IV NOW STA Stop: 04/27/24 16:55 Last Admin: 04/27/24 17:02 Dose: 4 mg Documented By: [facility] Ondansetron HCl (Ondansetron Inj 2 Mg/Ml 2 Ml Vial) 4 mg IV NOW STA Stop: 04/27/24 13:53 Last Admin: 04/27/24 14:19 Dose: 4 mg Documented By: [facility] Imaging Data Radiologist's Impression: Abdomen/Pelvis CT 04/27/24 13:53 CT SCAN OF THE ABDOMEN AND PELVIS WITH IV CONTRAST CLINICAL HISTORY: Generalized abdominal pain. Nausea and vomiting. History of gastric cancer. COMPARISON STUDY: Abdominal CT dated 03/31/2024. PET/CT dated 03/29/2024. TECHNIQUE: Following the IV administration of 93 cc of Optiray 320, CT scan of the abdomen and pelvis is performed from the lung bases to the proximal femora. Images are reviewed in the axial, sagittal, and coronal planes. IV contrast was administered without complication. A dose lowering technique was utilized adhering to the principles of ALARA. CT DOSE: 1267.75 mGy.cm FINDINGS: Lung bases: The heart is normal in size and without pericardial effusion. The lung bases are clear. Liver: The contrast-enhanced liver is normal in size, contour, and attenuation. There is no intrahepatic biliary ductal dilatation. The hepatic veins and portal veins are patent. Gallbladder: Unremarkable. Spleen: Normal in size and attenuation. Pancreas: Unremarkable. Adrenal glands: Unremarkable. Kidneys: The contrast enhanced kidneys are normal in size and without hydronephrosis. The kidneys enhance symmetrically. Abdominal vasculature: The abdominal aorta is normal in course and caliber. Stomach and bowel: The distal stomach appears markedly thickened and irregular with surrounding inflammation. There is a focal outpouching of fluid with surrounding inflammation along the inferior aspect of the stomach seen on axial image #121. There is apparent mucosal discontinuity of the inferior gastric wall at this site and this favors a contained perforation with abscess/fistula. This pocket of fluid measures approximately 2.5 x 2 x 2.5 cm, and this has decreased in size as compared to 03/31/2024. Infiltration from this collection approximates the transverse colon as seen on image #142 and a developing gastrocolic fistula is not excluded. There is no bowel obstruction. Mild fecal retention is seen throughout the colon. The appendix is well-visualized and normal. Peritoneum: There is no intraperitoneal free air or abdominal ascites. Lymphadenopathy: A prominent portacaval node on image #93 is unchanged and measures up to 11 mm. Pelvic viscera: The bladder wall appears thickened. The uterus and adnexa are normal as visualized. A 2.6 cm dominant follicle is noted in the right ovary. Skeletal structures: There is mild to moderate lumbosacral spondylosis. No lytic or blastic lesions are seen. IMPRESSION: 1. Again seen is irregular wall thickening of the distal stomach with surrounding inflammation. This likely corresponds to the known history of a gastric neoplasm. 2. Again seen is evidence of contained perforation along the inferior aspect of the distal stomach. An outpouching of fluid/phlegmon at the site like represents abscess/developing fistula, and the fluid collection has decreased in size from 03/31/2024. 3. The suspected developing fistula extends to the transverse colon, and a developing gastrocolic fistula is not excluded. 4. No intraperitoneal free air is identified. 5. There is no definite evidence of metastatic disease in the abdomen or pelvis. A prominent portacaval lymph node is unchanged. 6. The bladder wall appears thickened. Correlate with clinical findings and urinalysis. 7. Additional findings ACT 112: Negative or not required by law. Electronically signed by: Jose A Joe M.D. 04/27/2024 4:26 PM Discharge Plan Visit Data Chief Complaint: Illness Stated Complaint: STOMACH CANCER, VOMITING, NAUSEA, HANDS NUMB ED Provider: Sherif Lucio Discharge Problem: Nausea & vomiting Forms Stand Alone Forms: [employer] Prescriptions Prescriptions: No Action pantoprazole 40 mg tablet,delayed release (DR/EC) 40 mg PO BID Qty: 60 1RF losartan 50 mg tablet 50 mg PO QAM metoprolol succinate 25 mg tablet extended release 24 hr 25 mg PO HS ondansetron HCl 4 mg tablet 4 mg PO Q6H PRN (Reason: nausea and vomiting) Qty: 14 1RF Referrals Referrals: Jorge Luis Gil [Primary Care Provider] - Discharge Problem: Nausea & vomiting Qualifiers: Vomiting type: unspecified Qualified Code(s): R11.2 - Nausea with vomiting, unspecified
[2024-04-27] MEDS: ONDANSETRON INJ 2 MG/ML 2 ML VIAL IV STA ×2 (14:19→19:08)
[2024-04-27] MEDS: SODIUM CHLORIDE 0.9% 1,000 ML IV STA (14:20)
[2024-04-27] MEDS: MoRPHine SULFATE 4 MG/ML 1 ML CARP\\VIAL IV STA ×2 (14:20→17:02)
[2024-04-27 14:38] LABS: Basophils # (auto) 0.03 K/uL (0.00-0.20); Basophils % (auto) 0.3 %; Eosinophils # (auto) 0.04 K/uL (0.00-0.50); Eosinophils % (auto) 0.4 %; Hematocrit (blood only) 37.2 % (37.0-47.0); Hemoglobin 12.1 g/dl (12.0-16.0); Immature Granulocytes # (auto) 0.03 K/uL (0.01-0.20); Immature Granulocytes % (auto) 0.3 %; Lymphocytes # (auto) 1.69 K/uL (1.20-3.40); Lymphocytes % (auto) 18.5 %; Mean Corpuscular Hemoglobin 28.6 pg (25.0-34.0); Mean Corpuscular Hgb Conc 32.5 g/dL (32.0-36.0); Mean Corpuscular Volume 87.9 fL (80.0-100.0); Mean Platelet Volume 10.6 fL (9.4-12.4); Monocytes # (auto) 0.73 K/uL (0.11-0.59); Neutrophils # (auto) 6.61 K/uL (1.40-6.50); Neutrophils % (auto) 72.5 %; Platelet Count 292 K/uL (130-400); RDW Coefficient of Variation 15.6 % (11.5-14.5); RDW Standard Deviation 49.6 fL (36.4-46.3); Red Blood Count 4.23 M/uL (4.20-5.40); White Blood Count 9.13 K/ul (4.8-10.8)
[2024-04-27 14:54] LABS: BUN Creatinine Ratio 20.8 (10-20); Bilirubin,Total 1.3 mg/dl (0.2-1.0); Calcium 9.4 mg/dl (8.6-10.3); Creatinine Clr Calc Pharmacy 72.7 ml/min; Est GFR (African American) 75.6 ml/min; Est GFR (Non-African American) 65.2 ml/min; Potassium 3.5 mmol/L (3.5-5.1)
[2024-04-27] MEDS: OPTIRAY 320 100ml IV ONE (16:00)
--- NOTE | 2024-04-27 16:27 | CT Scan Report ---
CT SCAN OF THE ABDOMEN AND PELVIS WITH IV CONTRAST CLINICAL HISTORY: Generalized abdominal pain. Nausea and vomiting. History of gastric cancer. COMPARISON STUDY: Abdominal CT dated 03/31/2024. PET/CT dated 03/29/2024. TECHNIQUE: Following the IV administration of 93 cc of Optiray 320, CT scan of the abdomen and pelvi s is performed from the lung bases to the proximal femora. Images are reviewed in the axial, sagittal , and coronal planes. IV contrast was administered without complication. A dose lowering technique wa s utilized adhering to the principles of ALARA. CT DOSE: 1267.75 mGy.cm FINDINGS: Lung bases: The heart is normal in size and without pericardial effusion. The lung bases are clear. Liver: The contrast-enhanced liver is normal in size, contour, and attenuation. There is no intrahepa tic biliary ductal dilatation. The hepatic veins and portal veins are patent. Gallbladder: Unremarkable. Spleen: Normal in size and attenuation. Pancreas: Unremarkable. Adrenal glands: Unremarkable. Kidneys: The contrast enhanced kidneys are normal in size and without hydronephrosis. The kidneys enh ance symmetrically. Abdominal vasculature: The abdominal aorta is normal in course and caliber. Stomach and bowel: The distal stomach appears markedly thickened and irregular with surrounding infla mmation. There is a focal outpouching of fluid with surrounding inflammation along the inferior aspec t of the stomach seen on axial image #121. There is apparent mucosal discontinuity of the inferior ga stric wall at this site and this favors a contained perforation with abscess/fistula. This pocket of fluid measures approximately 2.5 x 2 x 2.5 cm, and this has decreased in size as compared to 4. Infiltration from this collection approximates the transverse colon as seen on image #142 and a de veloping gastrocolic fistula is not excluded. There is no bowel obstruction. Mild fecal retention is seen throughout the colon. The appendix is well-visualized and normal. Peritoneum: There is no intraperitoneal free air or abdominal ascites. Lymphadenopathy: A prominent portacaval node on image #93 is unchanged and measures up to 11 mm. Pelvic viscera: The bladder wall appears thickened. The uterus and adnexa are normal as visualized. A 2.6 cm dominant follicle is noted in the right ovary. Skeletal structures: There is mild to moderate lumbosacral spondylosis. No lytic or blastic lesions a re seen. IMPRESSION: 1. Again seen is irregular wall thickening of the distal stomach with surrounding inflammation. This likely corresponds to the known history of a gastric neoplasm. 2. Again seen is evidence of contained perforation along the inferior aspect of the distal stomach. A n outpouching of fluid/phlegmon at the site like represents abscess/developing fistula, and the fluid collection has decreased in size from 03/31/2024. 3. The suspected developing fistula extends to the transverse colon, and a developing gastrocolic fis corbin is not excluded. 4. No intraperitoneal free air is identified. 5. There is no definite evidence of metastatic disease in the abdomen or pelvis. A prominent portacav al lymph node is unchanged. 6. The bladder wall appears thickened. Correlate with clinical findings and urinalysis. 7. Additional findings ACT 112: Negative or not required by law. Electronically signed by: Jose A Joe M.D. 04/27/2024 4:26 PM
[2024-04-27] MEDS: SODIUM CHLORIDE 0.9% 1,000 ML IV ONE (16:30)
--- NOTE | 2024-04-27 17:37 | History & Physical Report ---
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 Following with Dr. Bari guzman onc with plans for port placement next week, initiation of chemo with modified [id number] chemotherapy in near future, [place]. [place] [facility] [place] following chemo CT abd/pelvis with: Again seen irregular wall thickening of the distal stomach with surrounding inflammation. This likely corresponds to the known history of a gastric neoplasm. Again seen is evidence of contained perforation along the inferior aspect of the distal stomach. An outpouching of fluid/phlegmon at the site like represents abscess/developing fistula, and the fluid collection has decreased in size from 03/31/2024. ED provider discussed with consumer marketing analyst gen surg [place]. 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 Nieves. Please see addendum. I spent a total of 75 minutes coordinating, documenting, and providing care for this patient excluding time spent in the performance of separately billed services. 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 Pain is non-radiation. Took tylenol and 1 hydrocodone but then began to vomit. Had nausea and vomiting last evening and has not been able to keep anything down since then. Took Zofran PRN that improved nausea intermittently. [place] near syncopal and dehydrated. Follows with Dr. Candelaria for heme onc with plans for port placement this coming Wednesday. Also following with Dr. Harper of surg [place] [facility] [place] and are anticipating surgery after chemo. Decreased appetite.+ belching. No F/C, CP, SOB, dysuria, diarrhea or cons tipation. Had a soft bowel movement yesterday. Allergies Allergy/AdvReac Type Severity Reaction Status Date / Time Sulfa (Sulfonamide Allergy Unknown Unknown Verified 04/27/24 16:59 Antibiotics) Home Medications Medication Instructions Recorded Confirmed Type losartan 50 mg tablet 50 mg PO QAM 09/24/23 04/27/24 History metoprolol succinate 25 mg 25 mg PO HS 09/24/23 04/27/24 History tablet,extended release 24 hr pantoprazole 40 mg tablet,delayed 40 mg PO BID #60 tabs 02/28/24 04/27/24 Rx release ondansetron HCl 4 mg tablet 4 mg PO Q6H PRN nausea and 03/14/24 04/27/24 Rx vomiting #14 tabs cholecalciferol (vitamin D3) 25 1,000 unit PO DAILY 04/27/24 04/27/24 History mcg (1,000 unit) tablet (Vitamin D3) hydrocodone 7.5 mg-acetaminophen 1 tab PO Q4H PRN Severe Pain 04/27/24 04/27/24 History 325 mg tablet (Scale Score 7-10) multivitamin 1 tab PO QAM 04/27/24 04/27/24 History oxycodone 5 mg tablet 5 mg PO Q4H PRN Moderate Pain 04/27/24 04/27/24 History (Scale Score 5-6) prochlorperazine maleate 10 mg 10 mg PO Q6H PRN Nausea And 04/27/24 04/27/24 History tablet Vomiting sertraline 25 mg tablet 25 mg PO DAILY 04/27/24 04/27/24 History simethicone 80 mg chewable tablet 80 mg PO Q6H PRN Dyspepsia 04/27/24 04/27/24 History Past Med/Surg History Problem List (Updated 04/27/24 @ 19:13 by Molly Begum PA-C) Cancer related pain Nausea & vomiting (Acute) Gastric adenocarcinoma (Acute) Gastric mass Gastritis Abdominal pain Gastric perforation (Acute) Epigastric abdominal pain (Acute) Encounter for pre-operative examination Epigastric abdominal pain (Acute) Abnormal CT scan (Acute) Gastric wall thickening (Acute) HTN (hypertension) Surgical History History of colonoscopy Hx of wisdom tooth extraction Hx of tooth extraction 10/07/23 History of cardiac catheterization 07/2023. 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 Physical Exam Physical Exam: Please see Dr. Pinedo's addendum for physical exam. Results & Data Results & Data Vital Signs (Past 12 Hours) Vital Signs Temp Pulse Resp BP Pulse Ox O2 Del Method 04/27/24 16:30 91 H 14 98 Room Air 04/27/24 15:36 91 H 12 141/81 H 95 Room Air 04/27/24 15:16 89 04/27/24 14:30 84 16 98 Room Air 04/27/24 13:33 37.3 C 124 H 20 105/71 20 L Laboratory Results Short CBC 04/27/24 Range/Units 14:12 WBC 9.13 (4.8-10.8) K/ul Hgb 12.1 (12.0-16.0) g/dl Hct 37.2 (37.0-47.0) % Plt Count 292 (130-400) K/uL BMP 04/27/24 14:12 Sodium 138 Potassium 3.5 Chloride 102 Carbon Dioxide 20 L BUN 20 Creatinine 0.96 Glucose 90 Calcium 9.4 Liver Function 04/27/24 Range/Units 14:12 Total Bilirubin 1.3 H (0.2-1.0) mg/dl AST 21 (13-39) U/L ALT 21 (7-52) U/L Alkaline Phosphatase 122 H (34-104) U/L Albumin 4.0 (3.4-5.0) gm/dl Diagnostic Findings Abdomen/Pelvis CT 04/27/24 13:53 CT SCAN OF THE ABDOMEN AND PELVIS WITH IV CONTRAST CLINICAL HISTORY: Generalized abdominal pain. Nausea and vomiting. History of gastric cancer. COMPARISON STUDY: Abdominal CT dated 03/31/2024. PET/CT dated 03/29/2024. TECHNIQUE: Following the IV administration of 93 cc of Optiray 320, CT scan of the abdomen and pelvis is performed from the lung bases to the proximal femora. Images are reviewed in the axial, sagittal, and coronal planes. IV contrast was administered without complication. A dose lowering technique was utilized adhering to the principles of ALARA. CT DOSE: 1267.75 mGy.cm FINDINGS: Lung bases: The heart is normal in size and without pericardial effusion. The lung bases are clear. Liver: The contrast-enhanced liver is normal in size, contour, and attenuation. There is no intrahepatic biliary ductal dilatation. The hepatic veins and portal veins are patent. Gallbladder: Unremarkable. Spleen: Normal in size and attenuation. Pancreas: Unremarkable. Adrenal glands: Unremarkable. Kidneys: The contrast enhanced kidneys are normal in size and without hydronephrosis. The kidneys enhance symmetrically. Abdominal vasculature: The abdominal aorta is normal in course and caliber. Stomach and bowel: The distal stomach appears markedly thickened and irregular w ith surrounding inflammation. There is a focal outpouching of fluid with surrounding inflammation along the inferior aspect of the stomach seen on axial image #121. There is apparent mucosal discontinuity of the inferior gastric wall at this site and this favors a contained perforation with abscess/fistula. This pocket of fluid measures approximately 2.5 x 2 x 2.5 cm, and this has decreased in size as compared to 03/31/2024. Infiltration from this collection approximates the transverse colon as seen on image #142 and a developing gastrocolic fistula is not excluded. There is no bowel obstruction. Mild fecal retention is seen throughout the colon. The appendix is well-visualized and normal. Peritoneum: There is no intraperitoneal free air or abdominal ascites. Lymphadenopathy: A prominent portacaval node on image #93 is unchanged and measures up to 11 mm. Pelvic viscera: The bladder wall appears thickened. The uterus and adnexa are normal as visualized. A 2.6 cm dominant follicle is noted in the right ovary. Skeletal structures: There is mild to moderate lumbosacral spondylosis. No lytic or blastic lesions are seen. IMPRESSION: 1. Again seen is irregular wall thickening of the distal stomach with surrounding inflammation. This likely corresponds to the known history of a gastric neoplasm. 2. Again seen is evidence of contained perforation along the inferior aspect of the distal stomach. An outpouching of fluid/phlegmon at the site like represents abscess/developing fistula, and the fluid collection has decreased in size from 03/31/2024. 3. The suspected developing fistula extends to the transverse colon, and a developing gastrocolic fistula is not excluded. 4. No intraperitoneal free air is identified. 5. There is no definite evidence of metastatic disease in the abdomen or pelvis. A prominent portacaval lymph node is unchanged. 6. The bladder wall appears thickened. Correlate with clinical findings and urinalysis. 7. Additional findings ACT 112: Negative or not required by law. Electronically signed by: JoseA Joe M.D. 04/27/2024 4:26 PM Supervising Physician Co-Signing Physician Notes Patient is a 58-year-old female with history of gastric adenocarcinoma presents with history of worsening abdominal pain associated with cramping since 1 week duration. She follows with [facility] oncology Dr. Howie Candelaria and also with Dr. Ivy surgeon [place] [facility] Patient is planned for chemotherapy and eventually surgery. She reports nausea, poor oral intake secondary to nausea and abdominal pain and belching. Please review HPI for complete details of presentation. ER physician discussed with general surgery [place] [facility] based on imaging studies patient was advised to manage symptomatically and recommended no urgent surgical intervention. I personally reviewed blood work and imaging studies. Physical Exam: Vitals signs as noted above General Appearance:Moderately built and nourished, no apparent distress Head: normocephalic, Atraumatic Eyes: normal inspection, EOMI Neck: supple, Trachea midline Respiratory/Chest: Normal breath sounds, CTA, No accessory muscle use Cardiovascular: S1, S2, No murmur Abdomen/GI:Soft, Epigastric tender, Bowel sounds present, guarding or rigidity Extremities/Musculoskeletal:normal inspection, no edema Neurologic/Psych:AAOX3, grossly no focal neurological deficits Skin: normal color, warm Gastric adenocarcinoma Intractable nausea, vomiting Elevated BP while in ED, situational Mild anion gap metabolic acidosis Gentle IV fluids, pain control, antiemetics Clear liquid diet, advance as tolerated Dietitian consulted Continue PPI, dicyclomine Pain control I personally interviewed and examined at bedside. Patient's care is coordinated with Molly Begum PA-C. I have reviewed the advanced practitioner's documentation, and I agree with plan of care. Please refer to the documentation above for details of patient's presentation and for discussion of other issues. I spent a total [id number] coordinating, documenting, and providing care for this patient excluding time spent in the performance of separately billed services. (1) Nausea & vomiting Vomiting type: unspecified Qualified Code(s): R11.2 - Nausea with vomiting, unspecified
[2024-04-27] MEDS: ACETAMINOPHEN 1,000 MG/100 ML VIAL IV STA (19:07)
[2024-04-27] MEDS: LACTATED RINGER'S 1,000 ML IV SCH (19:07)
[2024-04-27] MEDS ORDERED: HYDROmorphone INJ 0.5 MG/0.5 ML SYR IV PRN (20:03)
[2024-04-27] MEDS ORDERED: POLYETHYLENE (MIRALAX) 17 GM PACK PO PRN (20:03)
[2024-04-27] MEDS ORDERED: ACETAMINOPHEN 325 MG TAB PO PRN (20:03)
[2024-04-27 20:59] LABS: Appearance Urine Clear (Clear); Bacteria Urine Automated None Seen (None Seen); Bilirubin Urine Negative (Negative); Blood Urine Negative (Negative); Cast Urine Automated 0-2 /lpf (0-2); Color Urine Yellow; Glucose Urine UA Negative (Negative); Ketones Urine 4+ (Negative); Leukocyte Esterase Urine Negative (Negative); Nitrite Urine Negative (Negative); Protein Urine 1+ (Negative); Specific Gravity Urine > 1.045 (1.000-1.030); Urobilinogen Urine Negative (Negative); WBC Urine Automated 0-5 /hpf (0-5)
[2024-04-27] MEDS: ENOXAPARIN INJ 40 MG/0.4 ML SYR SQ SCH (22:11)
[2024-04-27] MEDS: PANTOprazole 40 MG in SYRINGE 0 ML IV SCH (22:11)
[2024-04-27] MEDS: METOPROLOL SUCC 25MG EXT REL TAB PO SCH (22:12)
[2024-04-27] MEDS: DICYCLOMINE HCL 10 MG CAP PO PRN (22:13)
--- OUTSIDE RECORDS SUMMARY | 2024-04-28 00:50 | External Medical Summary | Summary of Care ---
Author Name Unknown Organization [facility] Address [address] [facility] [place] [address] Phone [phone] Care Team Providers Care Director [facility] Name Role Phone Jorge Luis Gil PA-C Primary Care Provider [phone] Reason for Visit * Reason Onset Date Comments Advice 04/24/2024 Bari Encounter Details Date Type Department Care Team (Late st Contact Info) Description 04/24/2024 Telephone Access Center, [place] [address] [facility] *DO NOT REMOVE THIS DEPARTMENT* [place] [address] Services, Scheduling [address] [place] [address] Advice (Bari ) Allergies Active Allergy Reactions Criticality Noted Date Comments Sulfa Antibiotics Other (Please comment) 2023 Pt states she had a reaction as a child documented as of this encounter (statuses as of 04/27/2024) Medications Medication Sig Dispensed Refills Start Date End Date Status Losartan Potassium 50 MG Oral Tablet (Cozaar) Take 1 Tablet by mouth in the morning. Active Metoprolol Succinate ER 25 MG Oral Tablet Extended Release 24 Hour (toPROL XL) Take 1 Tablet by mouth at bedtime. Active Pantoprazole Sodium 40 MG Oral Tablet Delayed Release (Protonix) Take 1 Tablet by mouth in the morning. Active HYDROcodone-Scott taminophen 7.5-325 MG Oral Tablet Take 1 Tablet by mouth every 4 hours as needed for Pain, Severe. Active Polyethylene Glycol 3350 17 GM Oral Packet (MiraLax) Take 1 Packet by mouth in the morning. Active Sucralfate 1 GM/10ML Oral Suspension (Carafate) Take 10 mL by mouth in the morning and 10 mL at noon and 10 mL in the evening and 10 mL before bedtime. Active Zolpidem Tartrate 5 MG Oral Tablet (Ambien) Take 1 Tablet by mouth at bedtime as needed for Sleep. Active Vitamin D3 50 MCG (2000 UT) Oral Capsule Take 1 Capsule by mouth in the morning. Active Naloxone HCl 4 MG/0.1ML Nasal Liquid (Narcan Nasal) Administer 1 spray into 1 nostril for suspected opioid overdose. Seek immediate medical attention. [email or web address]://[email or web address]/[email or web address]?[email or web address] 1 Each 3 4 Active Simethicone 80 MG Oral Tablet Chewable (Mylicon) Chew & swallow 2 tablets every 6 hours as needed for Gas. 40 Tablet 4 Active Additional Information Patient not taking.Reported on 04/24/2024 Sucralfate 1 GM Oral Tablet (Carafate) Take 1 Tablet by mouth in the morning and 1 Tablet at noon and 1 Tablet in the evening and 1 Tablet before bedtime. 120 Tablet 4 05/09/20 24 Active Additional Information Patient not taking.Reported on 04/24/2024 Multi Vitamin Daily Oral Tablet Take by mouth. Active Sertraline HCl 25 MG Oral Tablet (Zoloft) Take 1 Tablet by mouth in the morning. Pt unsure of milligrams. Active Prochlorperazin e Maleate 10 MG Oral Tablet (Compazine)Ana Paula cations:Maligna nt neoplasm of stomach (HCC) Take 1 Tablet by mouth every 6 hours as needed for Nausea. 30 Tablet 3 4 Active oxyCODONE HCl 5 MG Oral Tablet (Oxy IR)Indications: Malignant neoplasm of stomach (HCC) Take 1 Tablet by mouth every 4 hours as needed for Pain, Moderate. 30 Tablet 4 Active Ondansetron HCl 8 MG Oral Tablet (Zofran)Indicat ions:Malignant neoplasm of stomach (HCC) Take 1 Tablet by mouth every 8 hours as needed for Nausea. 30 Tablet 3 4 Active Ondansetron HCl 4 MG Oral Tablet Take 1 Tablet by mouth every 8 hours as needed for Nausea. 04/26/20 24 Discontinued oxyCODONE HCl 5 MG Oral Tablet (Oxy IR)Indications: Malignant neoplasm of stomach (HCC) Take 1 Tablet by mouth every 4 hours as needed for Pain, Moderate. 30 Tablet 4 04/26/20 24 Discontinued(Ref ill) Ondansetron HCl 8 MG Oral Tablet (Zofran)Indicat ions:Malignant neoplasm of stomach (HCC) Take 1 Tablet by mouth every 8 hours as needed for Nausea. 30 Tablet 3 4 04/26/20 24 Discontinued(Ref ill) Prochlorperazin e Maleate 10 MG Oral Tablet (Compazine)Ana Paula cations:Maligna nt neoplasm of stomach (HCC) Take 1 Tablet by mouth every 6 hours as needed for Nausea. 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 (Adult - for ages 18 years and over) Not on file 04/25/2024 Is your family able to pay t he heat, water, or electric bill? (Household - for ages 0-17 years) Not on file 04/25/2024 Does your family have access to good internet? (Household - for ages 0-17 years) Not on file 04/25/2024 Social Connections Answer Date Recorded How often do you feel lonely or isolated from those around you? (Adult - for ages 18 years and over) Not on file 04/25/2024 Sex and Gender Information Value Date Recorded Sex Assigned at Not on file Gender Identity Not on file Sexual Orientation Not on file Job Start Date Occupation Industry Not on file Not on file Not on file documented as of this encounter Functional Status Functional Status Response Date of Assess ment Are you deaf or do you have serious difficulty h earing? No 03/31/2024 Are you blind or do you have serious difficulty seeing, even when wearing glasses? No 03/31/2024 Do you have serious difficul ty walking or climbing stairs? (5 years old or older) No 03/31/2024 Do you have difficulty dress ing or bathing? (5 years old or older) No 03/31/2024 Because of a physical, menta l, or emotional condition, do you have difficulty doing errands alone such as visiting a doctor s office or shopping? (15 years old or older) No 03/31/20 Cognitive Status Response Date of Assessm ent Because of a physical, menta l, or emotional condition, do you have serious difficulty concentrating, remembering, or making decisions? (5 years old or older) No 03/31/2024 documented as of this encounter Miscellaneous Notes * Telephone Encounter - Kenyon Candelaria MD - 04/27/2024 9:18 AM EDT - There are no specific medications for bile buildup in the stomach but could this be a bleeding from the antral mass? We should look for black color stool, we can also check CBCD and compare with the previous blood count and see any drop in the hemoglobin level. If she has increasing nausea, vomiting or brown vomitus, she should go to the ER for further evaluation. * Telephone Encounter - Jai Brooks RN - 04/27/2024 9:09 AM EDT Pt called today, states she took a hydrocodone yesterday to help with her stomach pain as she hasn't picked up the oxycodone yet. She states after taking this she had a bout of emesis that was brown with flecks. She states this is similar to when she had emesis with bile in the past when she went to the hospital. States she had instant relief after this and was able to tolerate water. Pt has only had 1 boost since yesterday and water. She is trying a soft/liquid diet today but hasn't tried this yet. She is passing gas, has not had a bowel movement since Wednesday but also isn't eating a lot. I advised patient that if her pain returns and or she has emesis again she should be seen in the ER. She verbalized understanding. Dr. Candelaria- Pt is asking if there's anything that can help with the bile build-up in her stomach as she feels this is the reason for her pain/discomfort/emesis. * Telephone Encounter - Jai Brooks RN - 04/27/2024 8:58 AM EDT Pt called this morning in regards to her pain, call was dropped when it was being transferred to this RN. I called patient back, no answer, LMOM with return #. * Addendum Note - Kenyon Candelaria MD - 04/27/2024 7:00 AM EDTAddended by: KENYON CANDELARIA on: 04/27/2024 07:00 AM Modules accepted: Orders * Telephone Encounter - Kenyon Candelaria MD - 04/27/2024 6:59 AM EDT Once again E-prescribed oxycodone, Zofran and Compazine. Nilton Irving, could you please check with the pharmacy regarding these prescriptions. * Addendum Note - Rocio Dowling CPhT - 04/26/2024 5:03 PM EDTAddended by: ROCIO DOWLING on: 04/26/2024 05:03 PM Modules accepted: Orders * Telephone Encounter - Rocio Dowling CPhT - 04/26/2024 5:03 PM EDT Please resend Rx to [facility]-[address] Confirmed pharmacy did not receive original prescription. Pending Prescriptions: Disp Refills Prochlorperazine Maleate 10 MG Oral Table*30 Tab*3 Sig: Take 1 Tablet by mouth every 6 hours as needed for Nausea. oxyCODONE HCl 5 MG Oral Tablet (Oxy IR) 30 Tab*0 Sig: Take 1 Tablet by mouth every 4 hours as needed for Pain, Moderate. Ondansetron HCl 8 MG Oral Tablet (Zofran) 30 Tab*3 Sig: Take 1 Tablet by mouth every 8 hours as needed for Nausea. Signed Prescriptions: Disp Refills oxyCODONE HCl 5 MG Oral Tablet (Oxy IR) 30 Tab*0 Sig: Take 1 Tablet by mouth every 4 hours as needed for Pain, Moderate. Authorizing Provider: KENYON CANDELARIA Ondansetron HCl 8 MG Oral Tablet (Zofran) 30 Tab*3 Sig: Take 1 Tablet by mouth every 8 hours as needed for Nausea. Authorizing Provider: KENYON CANDELARIA Prochlorperazine Maleate 10 MG Oral Tablet*30 Tab*3 Sig: Take 1 Tablet by mouth every 6 hours as needed for Nausea. Authorizing Provider: KENYON CANDELARIA Last Visit: Visit date not found (in office), Visit date not found (telemedicine) Visit date not found If no future appointments scheduled, and last appointment is greater than a year ago, please schedule patient for a follow-up appointment Last date the medication was ordered: 04/26/2024 Patient Phone Numbers Labs: Lab Results Component Value Date/Time CREAT 0.5 04/06/2024 05:02 AM POTASSIUM 4.2 04/06/2024 05:02 AM ALT 47 (H) 04/13/2024 01:01 PM * Telephone Encounter - Prema Antonio RN - 04/26/2024 2:38 PM EDTSigned Prescriptions: Disp Refills oxyCODONE HCl 5 MG Oral Tablet (Oxy IR) 30 Tab*0 Sig: Take 1 Tablet by mouth every 4 hours as needed for Pain, Moderate.Authorizing Provider: KENYON CANDELARIA Ondansetron HCl 8 MG Oral Tablet (Zofran) 30 Tab*3 Sig: Take 1 Tablet by mouth every 8 hours as needed for Nausea.Authorizing Provider: KENYON CANDELARIA Prochlorperazine Maleate 10 MG Oral Tablet*30 Tab*3 Sig: Take 1 Tablet by mouth every 6 hours as needed for Nausea.Authorizing Provider:KENYON CANDELARIA * Telephone Encounter - Roberta Yo OSA - 04/26/2024 1:37 PM EDT Added to schedule * Telephone Encounter - Prema Antonio RN - 04/26/2024 1:29 PM EDT Scheduling: please add nurse education visit after appt with Dr Candelaria next week. Thanks! * Addendum Note - Kenyon Candelaria MD - 04/26/2024 1:06 PM EDTAddended by: KENYON CANDELARIA on: 04/26/2024 01:06 PM Modules accepted: Orders * Telephone Encounter - Kenyon Candelaria MD - 04/26/2024 1:03 PM EDT - Ordered modified FOLFOX6 chemotherapy in her case, she should have chemotherapy teaching when I see her next week. * Telephone Encounter - Kenyon Candelaria MD - 04/26/2024 12:59 PM EDT E-prescribed Oxycodone, Zofran Compazine. * Addendum Note - Prema Antonio RN - 04/26/2024 12:04 PM EDTAddended by: PREMA ANTONIO on: 04/26/2024 12:04 PM Modules accepted: Orders * Telephone Encounter - Prema Antonio RN - 04/26/2024 11:45 AM EDT Called and spoke to patient. She notes that she has tramadol and hydrocodone/ acetaminophen orderedby her previous oncologist. Wednesday she saw her surgeon, was a little nauseous. Yesterday afternoon she started having pain in her abdomen. She took the gas and nausea medication she was prescribed (simethecone, zofran) and thatseemed to help a bit. She describes the pain as feeling like she has a "cramp" in her stomach, feels like hunger pains but she isnt hungry. She also notes some constipation. Passing gas, taking miralax as needed, did have a small BM yesterday. She states that she hadnt been eating solids, but started to try to advance her diet on Wednesday. Wednesday she had noodles and chicken sausage, Wednesday she had half a turkey sandwich. She has gone back tofull liquid/ very soft foods again in case this is what caused her pain. Her concern is that she has a history of a perforated ulcer. The pain isnt constant, so she doesn'tthink that is what it is, but this does worry her. Advised her that if pain increases to go to ER. She took a tramadol at around 10:45 and she thinks it helped a bit, she did doze off for a few minutes. Unsure if she should be continuing tramadol or if she should take hydrocodone/ acetaminophen instead. LFT's noted to be slightly elevated. Preferred pharmacy [facility]. Reviewed with Dr Candelaria- patient should continue protonix as prescribed. Can try oxycodone as neededfor pain, but patient should be cautious as this can also mask an underlying problem. If pain gets worse or does not improve with going back to full liquid diet, patient should go to ER. Called patient, she verbalized understanding. Will not take tramadol or hydrocodone/ acetaminophen.She does note that she took oxycodone while inpatient once and she had nausea, though she doesn't know if this was actually from the oxycodone- will also send prescriptions for zofran and compazine as these would be sent with any future treatment anyhow. She also recalled that right before her symptoms started, Dr Dominguez decreased her protonix from twice a day to once a day- advised her to go back to taking it twice a day for the next few days, when symptoms improve can try once a day again. She verbalized understanding of above as well as recommendation to go to ER with any worsening symptoms or if symptoms do not start to improve. PDMP reviewed - soma filled 04/06/24 for 15 tabs - hydrocodone/ acetaminophen filled 03/28/24 for 150 tablets - ambien filled 03/28/24 for 30 tablets * Telephone Encounter - Roberta Yo OSA - 04/26/2024 9:20 AM EDT Scheduling: check for results on Wednesday and if none call CT DEPT in AM Spoke to Dr Candelaria he wanted pt to come in on 05/03 after port placement currently on for a 2 pm but is aware just to come in right after port Called pt and she was very appreciative of it being all on one day Talked to nursing about CT being date before and they asked if it could be sooner. Called pt again and was able to schedule sooner CT Pts CT scheduled for 05/[address] is aware that it needs read lukasz and is making note of it Nursing : Pt was also saying when she was on the phone that she was asking if someone could call her about issues with pain in her abd. last night she took some gas meds and it helped little but she is still in pain she is asking if someone could talk to her she is unsure if she can take pain meds. Please advise * Telephone Encounter - Roberta Yo OSA - 04/26/2024 7:56 AM EDT Per note to talk to Dr Byrnes * Telephone Encounter - Jai Brooks RN - 04/25/2024 4:17 PM EDT Spoke with Dr. Candelaria- ok with scheduling on 05/09 for follow up @ 2PM. Scheduling- Please call patient to offer follow up appointment on 05/09 @ 2PM (overbook ok per Dr. Candelaria). * Telephone Encounter - Jai Brooks RN - 04/25/2024 4:02 PM EDT Spoke with patient on the phone, she states that nausea has been better, she found an old zofran script and has been using that sparingly with some relief. She has noticed more gas which I advised she may use gas-x to help or peppermint altoids to help. Advised patient that we are aware of the surgery consultation and her upcoming CT. Plan is to have the CT and schedule follow up with her the week after to discuss chemotherapy/findings/consent and do nursing education. Pt was very appreciative of the talk and is feeling relieved after the discussion. * Telephone Encounter - Alis Stokes OSA - 04/25/2024 3:50 PM EDT Patient calling back Call transferred to Jai * Telephone Encounter - Jai Brooks RN - 04/25/2024 10:56 AM EDT Discussed with Dr. Candelaria, will schedule follow up after CT is completed. Ct is scheduled 05/02. * Telephone Encounter - Jai Brooks RN - 04/24/2024 4:[address] Candelaria- pt was seen by Surgery today. Port placement is scheduled 05/03, please advise when you wish for patient to return to office to discuss chemotherapy going forward. Per surgery, plan for surgical intervention after chemo. Thank you. * Telephone Encounter - Alley Mitchell OSA - 04/24/2024 3:49 PM EDT Patient calling in with a few updates: she said she is not going to be getting a second opinion, and her work will be sending over FMLA forms. Also having nausea and is requesting a nausea medication to be called in for her. documented in this encounter Plan of Treatment Upcoming Encounters Date Type Department Care Team (Latest Contact Info) Description 05/01/2024 12:45 PM EDT Imaging Radiology [facility] 1st [facility], [address] [place] [address] 05/03/2024 10:04 AM EDT Hospital Encounter OR [facility], Operating Room, [facility] - 4th Floor [address] [address] Boogie Rowe MD [address] [place] [address] 05/03/2024 10:04 AM EDT - 05/03/2024 11:00 AM EDT Surgery OR [facility], Operating Room, [facility] - 4th Floor [address] [address] Boogie Rowe MD [address] [facility] [place] [address] INSERT TUNNELED CENTRAL VENOUS ACCESS WITH SUBQ PORT 05/03/2024 2:00 PM EDT Office Visit Hematology/Oncology [facility] [place] [address] [place] [phone] Kenyon Candelaria MD [address] [place] [address] 05/03/2024 2:30 PM EDT Nurse Only Hematology/Oncology [facility] [place] [address] [place] [phone] Jessica, Nurse Hem Onc [facility] [address] [facility] [place] [address] Scheduled Procedures Name Priority Associated Diagnoses Date/Ti me INSERT TUNNELED CENTRAL VENOUS ACCESS WITH SUBQ PORT Gastric adenocarcinoma (HCC) 05/03/2024 10:04 AM EDT Health Maintenance Due Date Last Done Comments Lipid Panel 1965 Depression Screening 1977 HIV Screening 1980 Albumin/Creatinine Ratio 1983 Hepatitis C Screening 1983 DTaP,Tdap,and Td Vaccines (1 - Tdap) 1984 Hepatitis B (1 of 3 - 19+ 3-dose series) 1984 Pap Smear 1986 Cervical Cancer Screening 1995 HPV/Co-Test 1995 Mammogram 2005 Cologuard 2010 Colonoscopy 2010 Colorectal Cancer Screening 2010 Fecal Occult Blood Test 2010 Sigmoidoscopy 2010 Zoster Vaccines (1 of 2) 2015 COVID-19 Vaccine (3 - season) 2023 02/26/2021, 02/05/2021 Influenza Vaccine (FLU shot) (Season Ended) 2024 GFR 04/06/2025 04/06/2024, 03/09, 04/04/2024, Additional history exists Diabetes Screening 04/06/2027 04/06/2024, 0 04/05/2024, 04/04/2024, Additional history exists GARDASIL-HPV IMMUNIZATION SERIES Aged Out No longer eligible based on patient's age to complete this topic MENINGOCOCCAL (MENACTRA/MENVEO) Aged Out No longer eligible based on patient's age to complete this topic Pneumococcal Vaccine: Pediatrics (0 to 5 Years) and At-Risk Patients (6 to 64 Years) Aged Out No longer eligible based on patient's age to complete this topic documented as of this encounter Medical Devices Not on filedocumented as of this encounter Visit Diagnoses Diagnosis Malignant neoplasm of stomach (HCC)- Primary Malignant neoplasm of stomach, unspecified site Gastric adenocarcinoma (HCC) Malignant neoplasm of stomach, unspecified site documented in this encounter Advance Directives * Full Code (Latest Code Status on File) Date Activated Date Inactivated Comments 03/31/2024 9:41 AM 04/06/2024 6:29 PM Question Answer Comments Discussion of Advance Direct marta occurred with: Not Discussed due to patient's condition Care Teams Director Of [facility] Relationship Specialty Start Date End Date Jorge Luis Gil, PANikkiC [address] [place] [id number] PCP - General Physician Analytical Chemist 03/23/24 documented as of this encounter
--- OUTSIDE RECORDS SUMMARY | 2024-04-28 00:50 | External Medical Summary | Summary of Care ---
Author Name Unknown Organization [facility] Address [address] [facility] [place] [address] Phone [phone] Care Team Providers Care Unit Educator Name Role Phone Jorge Luis Gil PA-C Primary Care Provider [phone] Reason for Visit * Reason Onset Date Comments Advice 04/24/2024 Bari Encounter Details Date Type Department Care Team (Late st Contact Info) Description 04/24/2024 Telephone Access Center, [place] [address] [facility] *DO NOT REMOVE THIS DEPARTMENT* [place] [address] Services, Scheduling [address] [place] [address] Advice (Bari ) Allergies Active Allergy Reactions [...] suspected opioid overdose. Seek immediate medical attention. [email or web address] 1 Each 3 4 Active Simethicone 80 [...] encounter Miscellaneous Notes * Telephone Encounter - Jai Brooks RN - 04/27/2024 9:27 AM EDT Tried calling patient, no answer, LMOM with return # to discuss. Will place CBCD order if patient is agreeable as well as CMP as patient oral intake has been poor the past week. * Telephone Encounter - Kenyon Candelaria [...] 5:03 PM EDT Please resend Rx to [facility]-[address] Confirmed pharmacy did not receive original [...] by mouth every 8 hours as needed forNausea.Authorizing Provider: KENYON CANDELARIA Prochlorperazine Maleate 10 MG Oral Tablet*30 Tab*3 Sig: Take 1 Tablet by mouth every 6 hours as needed for Nausea.Authorizing Provider: KENYON CANDELARIA * Telephone Encounter - Roberta Yo [...] and hydrocodone/ acetaminophen orderedby her previous oncologist. Abdi she saw her surgeon, was a little [...] noted to be slightly elevated. Preferred pharmacy [facility]. Reviewed with Dr Candelaria- patient should continue [...] Description 05/01/2024 12:45 PM EDT Imaging Radiology [facility] [address] [place] [address] 05/03/2024 10:04 AM EDT Hospital Encounter OR [facility], Operating Room, [facility] - 4th Floor [address] [place], [place] [address] [address] Boogie Rowe MD [address] [place] [address] 05/03/2024 10:04 AM EDT - 05/03/2024 11:00 AM EDT Surgery OR [facility], Operating Room, [facility] - 4th Floor [address] [address] Boogie Rowe MD [address] [place] [address] INSERT TUNNELED CENTRAL VENOUS ACCESS WITH SUBQ PORT 05/03/2024 2:00 PM EDT [facility] [employer] [address] [place] [id number] Kenyon Candelaria MD [address] [place] [address] 05/03/2024 2:30 PM EDT Nurse Only Hematology/Oncology [facility] [address] [place] [phone] Jessica, Nurse Hem Onc [facility] [address] [facility] [place] [address] Scheduled Procedures Name Priority Associated Diagnoses Date/Ti [...] Discussed due to patient's condition Care Teams Unit Educator Relationship Specialty Start Date End Date Jorge Luis Gil, TRANGC [address] [place] [address] [place] [address] PCP - General Physician Art Conservator 03/23/24 documented as of this encounter
--- OUTSIDE RECORDS SUMMARY | 2024-04-28 00:50 | External Medical Summary | Summary of Care ---
Author Name Unknown Organization [facility] Address [address] [facility] [place] [address] Phone [phone] Care Team Providers Care Seat Scooper Machine Name Role Phone Jorge Luis Gil PA-C Primary Care Provider +1 [phone] Reason for Visit * Reason Onset Date Comments Advice 04/24/2024 Bari Encounter Details Date Type Department Care Team (Late st Contact Info) Description 04/24/2024 Telephone Access Center, [place] [address] [facility] *DO NOT REMOVE THIS DEPARTMENT* [place] [address] Services, Scheduling [address] [place] [address] Advice (Bari ) Allergies Active Allergy Reactions [...] suspected opioid overdose. Seek immediate medical attention. [email or web address]?[email or web address] 1 Each 3 4 Active Simethicone 80 [...] e Maleate 10 MG Oral Tablet (Compazine)Ana Palua cations:Maligna nt neoplasm of stomach (HCC) Take [...] encounter Miscellaneous Notes * Telephone Encounter - Shellie Willingham OSA - 04/27/2024 9:42 AM EDT Patient returning call to jai. * Telephone Encounter - Jai Brooks RN [...] 5:03 PM EDT Please resend Rx to [facility] Confirmed pharmacy did not receive original [...] noted to be slightly elevated. Preferred pharmacy [place]. Reviewed with Dr Candelaria- patient should continue [...] Description 05/01/2024 12:45 PM EDT Imaging Radiology [facility] 1st [facility] [address] [facility] [place] [address] 05/03/2024 10:04 AM EDT Hospital Encounter OR [facility], Operating Room, [facility] - 4th Floor [address] [address] Boogie Rowe MD [address] [place] [address] 05/03/2024 10:04 AM EDT - 05/03/2024 11:00 AM EDT Surgery OR [facility], Operating Room, [facility] - 4th Floor [address] [address] Boogie Rowe MD [address] [place] [address] INSERT TUNNELED CENTRAL VENOUS ACCESS WITH SUBQ PORT 05/03/2024 2:00 PM EDT Office Visit Hematology/Oncology [facility] [place] 200 [facility] [place] [phone] Kenyon Candelaria MD 200 [facility] [place] [address] 05/03/2024 2:30 PM EDT Nurse Only Hematology/Oncology [facility] [place] 200 [facility] [place] [phone] [place], Nurse Hem Onc [facility] 200 [facility] [place] [address] Scheduled Procedures Name Priority Associated Diagnoses Date/Ti [...] (1 of 2) 2015 COVID-19 Vaccine (3 season) 2023 02/26/2021, 02/05/2021 Influenza Vaccine (FLU [...] Discussed due to patient's condition Care Teams Seat Scooper Machine Relationship Specialty Start Date End Date Jorge Luis Gil PA-C [address] [place], [place] [address] [address] PCP - General Physician Emr Trainer 03/23/24 documented as of this encounter
--- OUTSIDE RECORDS SUMMARY | 2024-04-28 00:51 | External Medical Summary ---
Author Name Unknown Address Unknown Organization K0G[facility] [place] [address] Laboratory Report Ordering Provider Test Date Status IRIS PRESCOTT 04/27/2024 13:05:28 Final Observation Date Value Abnormality Reference (Units ) Status WBC, Total 04/27/2024 13:05:28 11.41 Above high normal 4 .00-10.80 (K/uL) Final RBC 04/27/2024 13:05:28 4.33 3.85-5.15 (M/uL) Final Hemoglobin 04/27/2024 13:05:28 12.9 12.0-15.3 (g/dL) Final HCT 04/27/2024 13:05:28 39.8 36.0-45.2 (%) Final MCV 04/27/2024 13:05:28 91.9 81.5-97.5 (fL) Final MCH 04/27/2024 13:05:28 29.8 27.0-34.0 (pg) Final MCHC 04/27/2024 13:05:28 32.4 32.0-36.0 (g/dL) Final RDW 04/27/2024 13:05:28 16.0 11.5-15.5 (%) Final Platelets 04/27/2024 13:05:28 327 140-400 (K /uL) Final MPV 04/27/2024 13:05:28 10.4 6.6-11.1 ( fL) Final Performing Location LABORATORY [facility] [place] [address] [place] [address]
--- OUTSIDE RECORDS SUMMARY | 2024-04-28 00:51 | External Medical Summary | Summary of Care ---
Author Name Unknown Organization [facility] Address [address] [facility] [place] [address] Phone [phone] Care Team Providers Care Door To Door Salesperson Name Role Phone Jorge Luis Gil PA-C Primary Care Provider +1 [phone] Reason for Visit * Reason Onset Date Comments Advice 04/24/2024 Bari Encounter Details Date Type Department Care Team (Late st Contact Info) Description 04/24/2024 Telephone Access Center, [place] 100 [address] [facility] *DO NOT REMOVE THIS DEPARTMENT* [place] [address] Services, Scheduling [address] [place] [address] Advice (Bari ) Allergies Active Allergy Reactions [...] suspected opioid overdose. Seek immediate medical attention. https://www.[email or web address]/watch?v= [email or web address] 1 Each 3 4 Active Simethicone 80 [...] 5:03 PM EDT Please resend Rx to [facility] Confirmed pharmacy did not receive original [...] noted to be slightly elevated. Preferred pharmacy [place]. Reviewed with Dr Candelaria- patient should continue [...] Description 05/01/2024 12:45 PM EDT Imaging Radiology [facility] 1st [facility] 132 [facility] [place] [address] 05/03/2024 10:04 AM EDT Hospital Encounter OR [facility], Operating Room, [facility] - [address] [place] [address] [address] [address] Boogie Rowe MD [address] [place] [address] 05/03/2024 10:04 AM EDT - 05/03/2024 11:00 AM EDT Surgery OR [facility], Operating Room, [facility] Floor [address] [address] Boogie Roew MD [address] [place] [address] INSERT TUNNELED CENTRAL VENOUS ACCESS WITH SUBQ PORT 05/03/2024 2:00 PM EDT Office Visit Hematology/Oncology [facility] [address] [place] [phone] Kenyon Candelaria MD [address] [place] [address] 05/03/2024 2:30 PM EDT Nurse Only Hematology/Oncology [facility] [place]ia Lopez [address] [place] [address] Jessica Nurse Hem Onc [place] [address] [place] [address] Scheduled Procedures Name Priority Associated Diagnoses Date/Ti [...] Vaccines (1 of 2) 2015 COVID-19 Vaccine ( season) 2023 02/26/2021, 02/05/2021 Influenza Vaccine (FLU [...] Discussed due to patient's condition Care Teams Door To Door Salesperson Relationship Specialty Start Date End Date Jorge Luis Gil, ALISA [address] [place] [address] [place] [address] PCP - General Physician Live Out Nanny 03/23/24 documented as of this encounter
--- OUTSIDE RECORDS SUMMARY | 2024-04-28 00:51 | External Medical Summary | Summary of Care ---
Author Name Unknown Organization [facility] Address [address] [place] [place] [address] Phone [phone] Care Team Providers Care Inspector Repairer Name Role Phone Jorge Luis Gil PA-C Primary Care Provider +1 [phone] Reason for Referral * Precert (Within 10 days (routine)) - Pending Review Specialty Diagnoses / Procedures Referred By Denise murillo Referred To Contact Radiology Diagnoses Gastric adenocarcinoma (HCC) Procedures IR VENOUS ACCESS MEDIPORT Kenyon Candelaria MD [address] [place] [address] Referral ID Status Reason Start Date Expiration Date V isits Requested Visits Authorized [id number] Pending Review 04/27/2024 999 999 * Evaluate & Treat - Unlimited Visits (Within 10 days (routine)) - Pending Review Specialty Diagnoses / Procedures Referred By Denise murillo Referred To Contact SURGICAL ONCOLOGY / Surgical Oncology Diagnoses Gastric adenocarcinoma (HCC) Kenyon Candelaria MD [address] [place] [address] Referral ID Status Reason Start Date Expiration Date Visits Requested Visits Authorized [id number] Pending Review Specialty Services Required 04/20/2024 999 999 Question Answer Referral Priority Within 10 days (routine) Where should this appointment be scheduled? External - [facility] Yarely Comments 58-year-old female, a case of gastric adenocarcinoma, possible perforation earlier late last year, no evidence of distant metastatic disease. Would like to have surgical Oncology evaluation at [facility]. Thanks. Dr. Kenyon Candelaria Hem/Onc Reason for Visit * Reason Onset Date Comments Advice 04/20/2024 Encounter Details Date Type Department Care Team (Leia st Contact Info) Description 04/20/2024 Telephone Gastroenterology, [facility] [address] [place] [address] Sanket Dominguez DO [address] [place] [address] Advice Allergies Active Allergy Reactions Criticality Noted Date [...] Tablet by mouth in the morning. Active HYDROcodone-Acet aminophen 7.5-325 MG Oral Tablet Take 1 Tablet [...] for Sleep. Active Vitamin D3 50 MCG (1999 UT) Oral Capsule Take 1 Capsule by mouth in the morning. Active Naloxone HCl 4 MG/0.1ML Nasal Liquid (Narcan Nasal) Administer 1 spray into 1 nostril for suspected opioid overdose. Seek immediate medical attention. https://www.EDUSe.com/watch?v= [email or web address] 1 Each 3 04/06/2024 Active Simethicone 80 MG Oral Tablet Chewable (Mylicon) Chew & swallow 2 tablets every 6 hours as needed for Gas. 40 Tablet 04/06/2024 Active Additional Information Patient not taking.Reported on 04/24/2024 Sucralfate 1 GM Oral Tablet (Carafate) Take 1 Tablet by mouth in the morning and 1 Tablet at noon and 1 Tablet in the evening and 1 Tablet before bedtime. 120 Tablet 04/09/2024 Active Additional Information Patient not taking.Reported on 04/24/2024 Multi Vitamin Daily Oral Tablet Take by mouth. Active Ondansetron HCl 4 MG Oral Tablet Take 1 Tablet by mouth every 8 hours as needed for Nausea. 4 Discontinued documented as of this encounter (statuses as [...] encounter Miscellaneous Notes * Telephone Encounter - Roberta Yo OSA - 04/27/2024 8:49 AM EDT Called again just to follow up with patient Pt stated that he talked with bharat [facility] * Telephone Encounter - Roberta Yo OSA - 04/24/2024 8:24 AM EDT Left message to see where she would like the referral sent to * Addendum Note - Prema Antonio RN - 04/21/2024 10:07 AM EDTAddended by: PREMA ANTONIO on: 04/21/2024 10:07 AM Modules accepted: Orders * Telephone Encounter - Prema Antonio RN - 04/21/2024 9:50 AM EDT PDL1 already in process. Order placed for MyGenvar, message sent to pathology. * Addendum Note - Kenyon Candelaria MD - 04/20/2024 11:43 AM EDTAddended by: KENYON CANDELARIA on: 04/20/2024 11:43 AM Modules accepted: Orders * Telephone Encounter - Kenyon Candelaria MD - 04/20/2024 11:42 AM EDT I spoke with her on the phone, reviewed the pathological findings, now we have confirmation of the gastric adenocarcinoma well to moderately differentiated. She is seeing Dr. Harper the early next week. She says that her brother works at [facility] and the she would like to have another surgical Oncology consultation over there, she will let us know the name of doctor that she would like to see over there. Meanwhile I would like to send NGS and PD-L1 checkup. Would also like to proceed with port placement. * Telephone Encounter - Sanket Dominguez DO - 04/20/2024 10:57 AM EDT I was able to contact the patient with her pathology results as noted below. Plan Medical oncology f/u Surgcial oncology referral A. Gastric mass, biopsy: Invasive adenocarcinoma, well to moderately differentiated, in a background of adenomatous epithelium and foveolar gastric mucosa documented in this encounter Plan of Treatment Upcoming Encounters Date Type Department Care Team (Latest Contact Info) Description 05/01/2024 12:45 PM EDT Imaging Radiology [facility] [address] [place] [address] 05/03/2024 10:04 AM EDT Hospital Encounter OR [facility], Operating Room, [facility] - 4th Floor [address] [place] [address] Boogie Rowe MD [address] [place] [address] 05/03/2024 10:04 AM EDT - 05/03/2024 11:00 AM EDT Surgery OR [facility], Operating Room, [facility] - 4th Floor [address] [address] Boogie Rowe MD [address] [place] [address] INSERT TUNNELED CENTRAL VENOUS ACCESS WITH SUBQ PORT 05/03/2024 2:00 PM EDT Office Visit Hematology/Oncology [facility] [place] [address] [place] [place] [phone] Kenyon Candelaria MD [address] [place] [address] 05/03/2024 2:30 PM EDT Nurse Only Hematology/Oncology [facility] [place] [address] [place] [phone] Jessica, Nurse Hem Onc [facility] 200 [facility] [place] [address] Scheduled Orders Name Type Priority Associated Diagnoses Orde r Schedule IR VENOUS ACCESS MEDIPORT Medical Imaging Routine Gastric adenocarcinoma (HCC) Expected: 04/27/2024, Expires: 05/20/2025 Scheduled Procedures Name Priority Associated Diagnoses Date/Ti me INSERT TUNNELED CENTRAL VENOUS ACCESS WITH SUBQ PORT Gastric adenocarcinoma (HCC) 05/03/2024 10:04 AM EDT Scheduled Referrals Name Type Priority Associated Diagnoses Orde r Schedule SURGICAL ONCOLOGY REFERRAL OP Referral Within 10 days (routine) Gastric adenocarcinoma (HCC) Ordered: 04/20/2024 Health Maintenance Due Date Last Done Comments [...] Not on filedocumented as of this encounter Procedures Procedure Name Priority Date/Time Associated Diagnosis Comments ANATOMIC PATHOLOGY (BM/SURGICAL/CYTOL OGY) ADD ON REQUEST Routine 04/21/2024 9:52 AM EDT Gastric adenocarcinoma (HCC) documented in this encounter Results * ANATOMIC PATHOLOGY (BM/SURGICAL/CYTOLOGY) ADD ON REQUEST (04/21/2024 9:52 AM EDT) 04/21/2024 9:52 AM EDT 04/21/2024 9:52 AM EDT Narrative LABORATORY C - 04/24/2024 8:21 AM EDT MyGenVar Gastroesophageal Neoplasm Gene Panel, NGS Ordered by: Dr. Sanket Dominguez 04/21/24 QA for slides JCD 04/21/24 Slides to WQ 04/21/24 JCD Per WQ, ordered on A1, 5% tumor 04/24/24 JCD Sanket Dominguez DO LAB BLOOD ORDERABLES LABORATORY [facility] [address] [place] [address] documented in this encounter Visit Diagnoses Diagnosis Gastric adenocarcinoma (HCC)- Primary Malignant neoplasm of stomach, unspecified site Gastric adenocarcinoma (HCC) Malignant neoplasm of stomach, unspecified site documented in this encounter Advance Directives * Full Code (Latest Code Status on File) Date Activated Date Inactivated Comments 03/31/2024 9:41 AM 04/06/2024 6:29 PM Question Answer Comments Discussion of Advance Direct marta occurred with: Not Discussed due to patient's condition Care Teams Inspector Repairer Relationship Specialty Start Date End Date Jorge Luis Gil, PANikkiC [address] [place] [address] PCP - General Physician Printed Circuit Boards Router 03/23/24 documented as of this encounter
--- OUTSIDE RECORDS SUMMARY | 2024-04-28 00:51 | External Medical Summary | Summary of Care ---
Author Name Unknown Organization [facility] Address [address] [facility] [place] [address] Phone [phone] Care Team Providers Care Butt Maker Name Role Phone Jorge Luis Gil PA-C Primary Care Provider [phone] [phone] Reason for Visit * Reason Onset Date Comments Advice 04/24/2024 Bari Encounter Details Date Type Department Care Team (Late st Contact Info) Description 04/24/2024 Telephone Access Center, [place] 100 [address] [facility] *DO NOT REMOVE THIS DEPARTMENT* [place] [address] Services, Scheduling [address] [place] [address] Advice (Bari ) Allergies Active Allergy Reactions [...] suspected opioid overdose. Seek immediate medical attention. https://www.[email or web address].com/watch?v= [email or web address] 1 Each 3 4 Active Simethicone 80 [...] as of this encounter Miscellaneous Notes * Addendum Note - Kenyon Candelaria MD [...] 5:03 PM EDT Please resend Rx to [facility] Confirmed pharmacy did not receive original [...] noted to be slightly elevated. Preferred pharmacy [place]. Reviewed with Dr Candelaria- patient should continue [...] Description 05/01/2024 12:45 PM EDT Imaging Radiology [facility] 1st [facility], [address] [place] [address] 05/03/2024 10:04 AM EDT Hospital Encounter OR [facility], Operating Room, [facility] - 4th Floor [address] [address] Boogie Rowe MD [address] [address] 05/03/2024 10:04 AM EDT - 05/03/2024 11:00 AM EDT Surgery OR [facility], Operating Room, [facility] - 4th Floor [address] [address] Boogie Rowe MD [address] [place] [address] INSERT TUNNELED CENTRAL VENOUS ACCESS WITH SUBQ PORT 05/03/2024 2:00 PM EDT Office Visit Hematology/Oncology [facility] [place] [address] [place] [place] [phone] Kenyon Candelaria MD [address] [place] [address] 05/03/2024 2:30 PM EDT Nurse Only Hematology/Oncology [facility] [place] [address] [place] [place] [address] Jessica, Nurse Hem Onc [facility] [address] [place] [place] [address] Scheduled Procedures Name Priority Associated Diagnoses Date/Ti [...] Discussed due to patient's condition Care Teams Butt Maker Relationship Specialty Start Date End Date Jorge Luis Gil, TRANGC [address] [place] [address] PCP - General Physician Housekeeping Associate 03/23/24 documented as of this encounter
--- OUTSIDE RECORDS SUMMARY | 2024-04-28 00:51 | External Medical Summary | Summary of Care ---
Author Name Unknown Organization [facility] Address [address] [facility] [place] [address] Phone [phone] Care Team Providers Care Outsole Molder Name Role Phone Jorge Luis Gil PA-C Primary Care Provider +1 [phone] Reason for Visit * Reason Onset Date Comments Advice 04/24/2024 Bari Encounter Details Date Type Department Care Team (Late st Contact Info) Description 04/24/2024 Telephone Access Center, [place] 100 [address] [facility] *DO NOT REMOVE THIS DEPARTMENT* [place] [address] Services, Scheduling [address] [place] [address] Advice (Bari ) Allergies Active Allergy Reactions Criticality Noted Date Comments Sulfa Antibiotics Other (Please comment) 2023 Pt states she had a reaction as a child documented as of this encounter (statuses as of 04/26/2024) Medications Medication Sig Dispensed Refills Start Date [...] suspected opioid overdose. Seek immediate medical attention. https://www.Jade Solutions.com/watch?v= [email or web address] 1 Each 3 04/06/2024 Active Simethicone 80 [...] 1 Tablet before bedtime. 120 Tablet 04/09/2024 4 Active Additional Information Patient not taking.Reported on 04/24/2024 Multi Vitamin Daily Oral Tablet Take by mouth. Active Sertraline HCl 25 MG Oral Tablet (Zoloft) Take 1 Tablet by mouth in the morning. Pt unsure of milligrams. Active oxyCODONE HCl 5 MG Oral Tablet (Oxy IR)Indications:M alignant neoplasm of stomach (HCC) Take 1 Tablet by mouth every 4 hours as needed for Pain, Moderate. 30 Tablet 04/26/2024 Active Ondansetron HCl 8 MG Oral Tablet (Zofran)Indicati ons:Malignant neoplasm of stomach (HCC) Take 1 Tablet by mouth every 8 hours as needed for Nausea. 30 Tablet 3 04/26/2024 Active Prochlorperazine Maleate 10 MG Oral Tablet (Compazine)Indic ations:Malignant neoplasm of stomach (HCC) Take 1 Tablet by mouth every 6 hours as needed for Nausea. 30 Tablet 3 04/26/2024 Active Ondansetron HCl 4 MG Oral Tablet Take 1 Tablet by mouth every 8 hours as needed for Nausea. 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 Cancer related pain 03/31/2024 documented as of this encounter (statuses as of 04/26/2024) Social History Tobacco Use Types Packs/Day Years Used Date Smoking Tobacco: Never Smokeless Tobacco: Never Alcohol Use Standard Drinks/Week Comments Not Currently 2 (1 standard drink = 0.6 oz pure alcohol) quit Nov 2021, only will have a drink on special occassiActionIQ Utilities Answer Date Recorded Do you have [...] encounter Miscellaneous Notes * Addendum Note - Rocio Dowling CPhT - 04/26/2024 5:03 PM EDTAddended by: ROCIO DOWLING on: 04/26/2024 05:03 PM Modules accepted: Orders * Telephone Encounter - Rocio Dowling CPhT - 04/26/2024 5:03 PM EDT Please resend Rx to [facility] Confirmed pharmacy did not receive original [...] noted to be slightly elevated. Preferred pharmacy [place]. Reviewed with Dr Candelaria- patient should continue [...] Description 05/01/2024 12:45 PM EDT Imaging Radiology [address] [place] [address] 05/03/2024 10:04 AM EDT Hospital Encounter OR [facility], Operating Room, [facility] - 4th Floor [address] [address] Boogie Rowe MD [address] [place] [address] 05/03/2024 10:04 AM EDT - 05/03/2024 11:00 AM EDT Surgery OR [facility], Operating Room, [facility] - 4th Floor [address] [address] Boogie Rowe MD [address] [place] [address] INSERT TUNNELED CENTRAL VENOUS ACCESS WITH SUBQ PORT 05/03/2024 2:00 PM EDT Office Visit Hematology/Oncology [facility] [place] [address] [facility] [address] [place] [phone] Kenyon Candelaria MD 200 [facility] [place] [address] 05/03/2024 2:30 PM EDT Nurse Only Hematology/Oncology [facility] [place] 200 [facility] [place] [address] Jessica, Nurse Hem Onc [address] [place] [address] Scheduled Procedures Name Priority Associated Diagnoses Date/Ti [...] Discussed due to patient's condition Care Teams Outsole Molder Relationship Specialty Start Date End Date Jorge Luis Gil, PANikkiC [address] [place] [address] PCP - General Physician Substation Supervisor 03/23/24 documented as of this encounter
--- OUTSIDE RECORDS SUMMARY | 2024-04-28 00:51 | External Medical Summary | Summary of Care ---
Author Name Unknown Organization [facility] Address [address] [facility] [address] Phone [phone] Care Team Providers Care Body Line Finisher Name Role Phone Jorge Luis Gil PA-C Primary Care Provider +1 [phone] Reason for Visit * Reason Onset Date Comments Advice 04/24/2024 Bari Encounter Details Date Type Department Care Team (Late st Contact Info) Description 04/24/2024 Telephone Access Center, [place] [address] [facility] *DO NOT REMOVE THIS DEPARTMENT* [place] [address] Services, Scheduling [address] [place] [address] Advice (Bari ) Allergies Active Allergy Reactions [...] suspected opioid overdose. Seek immediate medical attention. https://www.[email or web address].com/watch?v= [email or web address] 1 Each 3 4 Active Simethicone 80 [...] Once again E-prescribed oxycodone, Zofran and Compazine. Hi Prema, could you please check with the pharmacy regarding these prescriptions. * Addendum Note - Rocio Dowling CPhT - 04/26/2024 5:03 PM EDTAddended by: ROCIO DOWLING on: 04/26/2024 05:03 PM Modules accepted: Orders * Telephone Encounter - Rocio Dowling CPhT - 04/26/2024 5:03 PM EDT Please resend Rx to [facility] Confirmed pharmacy did not receive original [...] noted to be slightly elevated. Preferred pharmacy [place]. Reviewed with Dr Candelaria- patient should continue [...] Description 05/01/2024 12:45 PM EDT Imaging Radiology [facility] 1st [facility], [address] [place] [address] 05/03/2024 10:04 AM EDT Hospital Encounter OR [facility], Operating Room, [facility] - 4th Floor [address] [place] [address] [address] Boogie Rowe MD [address] [place] [address] 05/03/2024 10:04 AM EDT - 05/03/2024 11:00 AM EDT Surgery OR [facility], Operating Room, [facility] - 4th Floor [address] [address] Boogie Rowe MD [address] [place] [place] [address] INSERT TUNNELED CENTRAL VENOUS ACCESS WITH SUBQ PORT 05/03/2024 2:00 PM EDT Office [facility] [place] [address] [place] [address] Kenyon Candelaria MD [address] [place] [address] 05/03/2024 2:30 PM EDT Nurse Only Hematology/Oncology [facility] [place] [address] [place] [address] Jessica, Nurse Hem Onc [facility] [address] [place] [address] Scheduled Procedures Name Priority Associated Diagnoses Date/Ti [...] Discussed due to patient's condition Care Teams Body Line Finisher Relationship Specialty Start Date End Date Jorge Luis Gil PA-C [address] [place] [address] PCP - General Physician Local Company Truck Driver 03/23/24 documented as of this encounter
--- OUTSIDE RECORDS SUMMARY | 2024-04-28 00:51 | External Medical Summary | Summary of Care ---
Author Name Unknown Organization [facility] Address [address] [facility] [place] [address] Phone [phone] Care Team Providers Care Military Exchange Wireless Manager Name Role Phone Jorge Luis Gil PA-C Primary Care Provider +1 [phone] Reason for Referral * Precert (Within 10 days (routine)) - Pending Review Specialty Diagnoses / Procedures Referred By Denise murillo Referred To Contact Radiology Diagnoses Gastric adenocarcinoma (HCC) Procedures IR VENOUS ACCESS MEDIPORT Kenyon Candelaria MD [address] [place] [address] Referral ID Status Reason Start Date Expiration Date V isits Requested Visits Authorized [id number] Pending Review 04/27/2024 999 999 * Evaluate & Treat - Unlimited Visits (Within 10 days (routine)) - Pending Review Specialty Diagnoses / Procedures Referred By Denise murillo Referred To Contact SURGICAL ONCOLOGY / Surgical Oncology Diagnoses Gastric adenocarcinoma (HCC) Kenyon Candelaria MD [address] [place] [address] Referral ID Status Reason Start Date Expiration Date Visits Requested Visits Authorized [id number] Pending Review Specialty Services Required 04/20/2024 999 999 Question Answer Referral Priority Within 10 days (routine) Where should this appointment be scheduled? External - [facility] Yarely Comments 58-year-old female, a case of gastric adenocarcinoma, possible perforation earlier late last year, no evidence of distant metastatic disease. Would like to have surgical Oncology evaluation at [facility]. Thanks. Dr. Kenyon Candelaria Hem/Onc Reason for Visit * Reason Onset Date Comments Advice 04/20/2024 Encounter Details Date Type Department Care Team (Leia st Contact Info) Description 04/20/2024 Telephone Gastroenterology, [facility] [address] [place] [address] Sanket Dominguez DO [address] [place] [address] Advice Allergies Active Allergy Reactions Criticality Noted [...] suspected opioid overdose. Seek immediate medical attention. https://www.Money [email or web address].com/watch?v= [email or web address] 1 Each 3 04/06/2024 Active Additional Information Patient not taking.Reported on 04/14/2024 Simethicone 80 MG Oral Tablet Chewable (Mylicon) Chew & swallow 2 tablets every 6 hours as needed for Gas. 40 Tablet 04/06/2024 Active Sucralfate 1 GM Oral Tablet (Carafate) Take 1 Tablet by mouth in the morning and 1 Tablet at noon and 1 Tablet in the evening and 1 Tablet before bedtime. 120 Tablet 04/09/2024 4 Active Multi Vitamin Daily Oral Tablet Take by [...] She says that her brother works at [facility] and the she would like to [...] Description 05/01/2024 12:45 PM EDT Imaging Radiology [facility] 1st [facility], [address] [place] [address] 05/03/2024 10:04 AM EDT Hospital Encounter OR [facility], Operating Room, [facility] - 4th Floor [address] [place] [address] [address] Boogie Rowe MD [address] [place] [address] [address] 05/03/2024 10:04 AM EDT - 05/03/2024 11:00 AM EDT Surgery OR [facility], Operating Room, [facility] - 4th Floor [address] [place] [address] [address] Boogie Rowe MD [address] [place] [address] INSERT TUNNELED CENTRAL VENOUS ACCESS WITH SUBQ PORT 05/03/2024 2:00 PM EDT Office Visit Hematology/Oncology [facility] [place] [address] [place] [address] Kenyon Candelaria MD [address] [place] [address] 05/03/2024 2:30 PM EDT Nurse Only Hematology/Oncology [facility] [place] [address] [place] [address] Jessica, Nurse Hem Onc [facility] [address] [place] [address] Scheduled Orders Name Type Priority Associated Diagnoses [...] EDT 04/21/2024 9:52 AM EDT Narrative [facility] - 04/24/2024 8:21 AM EDT MyGenVar Gastroesophageal Neoplasm Gene Panel, NGS Ordered by: Dr. Sanket Dominguez 04/21/24 QA for slides JCD 04/21/24 Slides to WQ 04/21/24 JCD Per WQ, ordered on A1, 5% tumor 04/24/24 JCD Sanket Dominguez DO LAB BLOOD ORDERABLES [facility] [address] [place] [address] documented in this encounter Visit Diagnoses Diagnosis [...] Discussed due to patient's condition Care Teams Military Exchange Wireless Manager Relationship Specialty Start Date End Date Jorge Luis Gil PA-C [address] [place] [address] PCP - General Physician Web Software Engineer 03/23/24 documented as of this encounter
--- OUTSIDE RECORDS SUMMARY | 2024-04-28 00:51 | External Medical Summary ---
Author Name Unknown Address Unknown Organization [facility] [address] [place] [address] Laboratory Report Ordering Provider Test Date Status IRIS PRESCOTT 04/27/2024 13:05:28 Final Observation Date Value Abnormality Reference (Units ) Status SYNC LEUKOCYTES IN BLOOD BY AUTOMATED COUNT 04/27/2024 13:05:28 11.41 Above high normal 4.00-10.80 (K/uL) Final Segs 04/27/2024 13:05:28 70.4 40.0-75.0 (%) Final Lymphs % 04/27/2024 13:05:28 20.7 18.0-42.0 (%) Final Monos 04/27/2024 13:05:28 8.3 1.0-11.0 (%) Final Eosinophils 04/27/2024 13:05:28 0.4 0.0-6.0 (%) Final Basos 04/27/2024 13:05:28 0.2 0.0-2.0 (%) Final Absolute Segs 04/27/2024 13:05:28 8.03 Above high normal 1.80-7.70 (K/uL) Final Lymphs, absolute 04/27/2024 13:05:28 2.36 1.00-4.80 (K/ul) Final Monos, Abs 04/27/2024 13:05:28 0.95 0.00-1.10 (K/uL) Final Eos, Abs 04/27/2024 13:05:28 0.05 0.00-0.70 (K/uL) Final Basos, Abs 04/27/2024 13:05:28 0.02 0.00-0.20 (K/uL) Final Performing Location [facility] [address] [place] [address]
--- OUTSIDE RECORDS SUMMARY | 2024-04-28 00:51 | External Medical Summary | Summary of Care ---
Author Name Unknown Organization [facility] Address [address] [facility] [address] Phone [phone] Care Team Providers Care Sports Agent Name Role Phone Jorge Luis Gil PA-C Primary Care Provider [phone] [phone] Reason for Visit * Reason Onset Date Comments Advice 04/24/2024 Bari Encounter Details Date Type Department Care Team (Late st Contact Info) Description 04/24/2024 Telephone Access Center, [place] [address] [facility] *DO NOT REMOVE THIS DEPARTMENT* [place] [address] Services, Scheduling [address] [place] [address] Advice (Bari ) Allergies Active Allergy Reactions [...] suspected opioid overdose. Seek immediate medical attention. https://www.DCITS.com/watch?v= [email or web address] 1 Each 3 4 Active Simethicone 80 [...] PM EDT Please resend Rx to [facility] Confirmed pharmacy did not receive original [...] noted to be slightly elevated. Preferred pharmacy [place]. Reviewed with Dr Candelaria- patient should continue [...] Description 05/01/2024 12:45 PM EDT Imaging Radiology [facility] 1st [facility], [address] [place] [address] 05/03/2024 10:04 AM EDT Hospital Encounter OR [facility], Operating Room, [facility] - 4th Floor [address] [place] [address] Boogie Rowe MD [address] [place] [address] [address] 05/03/2024 10:04 AM EDT - 05/03/2024 11:00 AM EDT Surgery OR [facility], Operating Room, [facility] - 4th Floor [address] [place] [address] [address] Boogie Rowe MD [address] [place] [address] INSERT TUNNELED CENTRAL VENOUS ACCESS WITH SUBQ PORT 05/03/2024 2:00 PM EDT Office Visit Hematology/Oncology [facility] [place] [address] [place] [address] Kenyon Candelaria MD [address] [place] [address] 05/03/2024 2:30 PM EDT Nurse Only Hematology/Oncology [facility] [address] [place] [address] Jessica, Nurse Hem Onc [facility] [address] [place] [address] Scheduled Procedures Name Priority Associated Diagnoses Date/Ti [...] Discussed due to patient's condition Care Teams Sports Agent Relationship Specialty Start Date End Date Jorge Luis Gil, TRANGC [address] [place] [address] PCP - General Physician Hearing Healthcare Practitioner 03/23/24 documented as of this encounter
--- OUTSIDE RECORDS SUMMARY | 2024-04-28 00:51 | External Medical Summary | Summary of Care ---
Author Name Unknown Organization [facility] Address [address] [place] [place] [place] [address] Phone [phone] Care Team Providers Care Front Line Leader Name Role Phone Jorge Luis Gil PA-C Primary Care Provider +1 -[phone] Reason for Visit * Reason Onset Date Comments Advice 04/24/2024 Bari Encounter Details Date Type Department Care Team (Late st Contact Info) Description 04/24/2024 Telephone Access Center, [place] [address] [facility] *DO NOT REMOVE THIS DEPARTMENT* [place] [address] Services, Scheduling [address] [place] [address] Advice (Bari ) Allergies Active Allergy Reactions [...] suspected opioid overdose. Seek immediate medical attention. https://www.[email or web address]/watch?v= [email or web address] 1 Each 3 04/06/2024 Active Simethicone 80 [...] only will have a drink on special occassiRentmetrics Utilities Answer Date Recorded Do you have [...] 5:03 PM EDT Please resend Rx to [facility] Confirmed pharmacy did not receive original [...] nurse education visit after appt with Dr Cadnelaria next week. Thanks! * Addendum Note - [...] noted to be slightly elevated. Preferred pharmacy [place]. Reviewed with Dr Candelaria- patient should continue [...] Description 05/01/2024 12:45 PM EDT Imaging Radiology [address] [place] [address] 05/03/2024 10:04 AM EDT Hospital Encounter OR [facility], Operating Room, [facility] - 4th Floor [address] [address] Boogie Rowe MD [address] [place] [address] 05/03/2024 10:04 AM EDT - 05/03/2024 11:00 AM EDT Surgery OR [facility], Operating Room, [facility] - 4th Floor [address] [place] [address] Boogie Rowe MD [address] [place] [address] INSERT TUNNELED CENTRAL VENOUS ACCESS WITH SUBQ PORT 05/03/2024 2:00 PM EDT Office Visit Hematology/Oncology [facility] [place] [address] [facility] [address] [place] [address] Kenyon Candelaria MD [address] [facility] [place] [address] 05/03/2024 2:30 PM EDT Nurse Only Hematology/Oncology [facility] [place] [address] [facility] [place] [address] Jessica, Nurse Hem Onc [address] [place] [address] Scheduled Procedures Name Priority Associated Diagnoses Date/Ti [...] Discussed due to patient's condition Care Teams Front Line Leader Relationship Specialty Start Date End Date Jorge Luis Gil, PANikkiC [address] [place] [address] PCP - General Physician Chicken Sexer 03/23/24 documented as of this encounter
--- OUTSIDE RECORDS SUMMARY | 2024-04-28 00:52 | External Medical Summary | Summary of Care ---
Author Name Unknown Organization [facility] Address [address] [facility] [place] [address] Phone [phone] Care Team Providers Care Prosthetics Technician Name Role Phone Jorge Luis Gil PA-C Primary Care Provider +1 -[phone] Reason for Visit * Reason Onset Date Comments Advice 04/24/2024 Candelaria Encounter Details Date Type Department Care Team (Late st Contact Info) Description 04/24/2024 Refill Access Center, [place] 100 [address] [facility] *DO NOT REMOVE THIS DEPARTMENT* [place] [address] Services, Scheduling [address] [place] [address] Malignant neoplasm of stomach (HCC)* Allergies Active Allergy Reactions Criticality Noted Date [...] suspected opioid overdose. Seek immediate medical attention. https://www.SwipeToSpin.com/watch?v= [email or web address] 1 Each 3 04/06/2024 Active Simethicone 80 [...] only will have a drink on special Solar Tower TechnologiessiDataFlyte Utilities Answer Date Recorded Do you have [...] noted to be slightly elevated. Preferred pharmacy [place]. Reviewed with Dr Candelaria- patient should continue [...] [facility] 1st [facility] [address] [place] [address] 05/03/2024 10:04 AM EDT Hospital Encounter OR [facility], Operating Room, [facility] - 4th Floor [address] [place] [address] Boogie Rowe MD [address] [place] [address] 05/03/2024 10:04 AM EDT - 05/03/2024 11:00 AM EDT Surgery OR [facility], Operating Room, [facility] - 4th Floor [address] [place] [address] Boogie Rowe MD [address] [place] [address] INSERT TUNNELED CENTRAL VENOUS ACCESS WITH SUBQ PORT 05/03/2024 2:00 PM EDT Office Visit Hematology/Oncology [facility] 200 [facility] [place] [id number] Kenyon Candelaria MD 200 [facility] [address] Scheduled Procedures Name Priority Associated Diagnoses Date/Ti [...] Discussed due to patient's condition Care Teams Prosthetics Technician Relationship Specialty Start Date End Date Jorge Luis Gil, ALISA [address] [place] [address] [place] [address] PCP - General Physician Brush Maker Machine 03/23/24 documented as of this encounter
--- OUTSIDE RECORDS SUMMARY | 2024-04-28 00:52 | External Medical Summary | Summary of Care ---
Author Name Unknown Organization [facility] Address [address] [place] [address] Phone [phone] Care Team Providers Care Case Loader Operator Name Role Phone Jorge Luis Gil PA-C Primary Care Provider +1 [phone] Reason for Visit * Reason Onset Date Comments Advice 04/24/2024 Bari Encounter Details Date Type Department Care Team (Late st Contact Info) Description 04/24/2024 Telephone Access Center, [place] [address] [facility] *DO NOT REMOVE THIS DEPARTMENT* [place] [address] Services, Scheduling [address] [place] [address] Advice (Bari ) Allergies Active Allergy Reactions [...] Tablet by mouth in the morning. Active HYDROcodone-Aceta minophen 7.5-325 MG Oral Tablet Take 1 Tablet by mouth every 4 hours as needed for Pain, Severe. Active Polyethylene Glycol 3350 17 GM Oral Packet (MiraLax) Take 1 Packet by mouth in the morning. Active Ondansetron HCl 4 MG Oral Tablet Take 1 Tablet by mouth every 8 hours as needed for Nausea. Active Sucralfate 1 GM/10ML Oral Suspension (Carafate) [...] suspected opioid overdose. Seek immediate medical attention. https://www.Complexa.com/watch?v=v26c Usl0UkA 1 Each 3 04/06/2024 Active Simethicone 80 [...] 1 Tablet before bedtime. 120 Tablet 04/09/2024 05/09/2024 Active Additional Information Patient not taking.Reported on 04/24/2024 Multi Vitamin Daily Oral Tablet Take by mouth. Act lakisha Sertraline HCl 25 MG Oral Tablet (Zoloft) Take 1 Tablet by mouth in the morning. Pt unsure of milligrams. Active documented as of this encounter (statuses as [...] Description 05/01/2024 12:45 PM EDT Imaging Radiology [facility] 1st [facility], [address] [place] [address] 05/03/2024 10:04 AM EDT Hospital Encounter [facility], Operating Room, [facility] - 4th Floor [address] [place] [address] Boogie Rowe MD [address] [place] [address] 05/03/2024 10:04 AM EDT - 05/03/2024 11:00 AM EDT Surgery OR [facility], Operating Room, [facility] - 4th Floor [address] [place] [address] Boogie Rowe MD [address] [place] [address] INSERT TUNNELED CENTRAL VENOUS ACCESS WITH SUBQ PORT 05/03/2024 2:00 PM EDT Office Visit Hematology/Oncology [place] 200 [facility] [place] [address] Howie Candelaria MD 200 [facility] [place] [address] Scheduled Procedures Name Priority Associated Diagnoses Date/Ti [...] Not on filedocumented as of this encounter Advance Directives * Full Code (Latest Code Status on File) Date Activated Date Inactivated Comments 03/31/2024 9:41 AM 04/06/2024 6:29 PM Question Answer Comments Discussion of Advance Direct marta occurred with: Not Discussed due to patient's condition Care Teams Case Loader Operator Relationship Specialty Start Date End Date Jorge Luis Gil, TRANGC [address] [place] [address] PCP - General Physician Data Security Coordinator 03/23/24 documented as of this encounter
--- OUTSIDE RECORDS SUMMARY | 2024-04-28 00:52 | External Medical Summary | Summary of Care ---
Author Name Unknown Organization [facility] Address [address] [place] [place] [place] [address] Phone [phone] Care Team Providers Care Academic Affairs Specialist Name Role Phone Jorge Luis Gil PA-C Primary Care Provider [phone] Reason for Visit * Reason Onset Date Comments Advice 04/24/2024 Bari Encounter Details Date Type Department Care Team (Late st Contact Info) Description 04/24/2024 Telephone Access Center, [place] [address] [facility] *DO NOT REMOVE THIS DEPARTMENT* [place] [address] Services, Scheduling [address] [place] [address] Advice (Bari ) Allergies Active Allergy Reactions Criticality Noted Date Comments Sulfa Antibiotics Other (Please comment) 2023 Pt states she had a reaction as a child documented as of this encounter (statuses as of 04/25/2024) Medications Medication Sig Dispensed Refills Start Date [...] suspected opioid overdose. Seek immediate medical attention. 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 Cancer related pain 03/31/2024 documented as of this encounter (statuses as of 04/25/2024) Social History Tobacco Use Types Packs/Day Years Used Date Smoking Tobacco: Never Smokeless Tobacco: Never Alcohol Use Standard Drinks/Week Comments Not Currently 2 (1 standard drink = 0.6 oz pure alcohol) quit Nov 2021, only will have a drink on special occassions Sex and Gender Information Value Date Recorded [...] Department Care Team (Latest Contact Info) Description 05/02/2024 11:45 AM EDT Imaging Radiology [facility] 1st [facility] [place] [address] [place] [address] 05/03/2024 10:04 AM EDT Hospital Encounter OR [facility], Operating Room, [facility] - 4th [facility] [address] [address] Boogie Rowe MD [address] [place] [address] 05/03/2024 10:04 AM EDT - 05/03/2024 11:00 AM EDT Surgery OR [facility], Operating Room, [facility] - 4th Floor [address] [place] [address] [address] Boogie Rowe MD [address] [place] [address] INSERT TUNNELED CENTRAL VENOUS ACCESS WITH SUBQ PORT Scheduled Procedures Name Priority Associated Diagnoses Date/Ti [...] Discussed due to patient's condition Care Teams Academic Affairs Specialist Relationship Specialty Start Date End Date Jorge Luis Gil, TRANGC [address] [place] [address] PCP - General Physician Inner Tube Tuber Machine Operator 03/23/24 documented as of this encounter
--- OUTSIDE RECORDS SUMMARY | 2024-04-28 00:52 | External Medical Summary | Summary of Care ---
Author Name Unknown Organization [facility] Address [address] [place] [address] Phone [phone] Care Team Providers Care Grades 1 Through 6 Teacher Name Role Phone Jorge Luis Gil PA-C Primary Care Provider [phone] Reason for Visit * Reason Onset Date Comments Advice 04/24/2024 Bari Encounter Details Date Type Department Care Team (Late st Contact Info) Description 04/24/2024 Telephone Access Center, [place] [address] [facility] *DO NOT REMOVE THIS DEPARTMENT* [place] [address] Services, Scheduling [address] [place] [address] Advice (Bari ) Allergies Active Allergy Reactions [...] suspected opioid overdose. Seek immediate medical attention. https://www.Ellipse Technologies.com/watch?v=v26c Yen7EvD 1 Each 3 04/06/2024 Active Simethicone 80 [...] encounter Miscellaneous Notes * Telephone Encounter - Alis Stokes OSA [...] Description 05/02/2024 11:45 AM EDT Imaging Radiology [facility] [address] [place] [address] 05/03/2024 10:04 AM EDT Hospital Encounter OR [facility], Operating Room, [facility] - 4th Floor [address] [place] [place] [address] Boogie Rowe MD [address] [place] [address] 05/03/2024 10:04 AM EDT - 05/03/2024 11:00 AM EDT Surgery OR [facility], Operating Room, [facility] - 4th Floor [address] [place] [address] Boogie Rowe MD [address] [place] [address] INSERT TUNNELED CENTRAL VENOUS ACCESS WITH SUBQ [...] Discussed due to patient's condition Care Teams Grades 1 Through 6 Teacher Relationship Specialty Start Date End Date Jorge Luis Gil, PANikkiC [address] [place] [address] PCP - General Physician General Machine Operator 03/23/24 documented as of this encounter
--- OUTSIDE RECORDS SUMMARY | 2024-04-28 00:52 | External Medical Summary | Summary of Care ---
Author Name Unknown Organization [facility] Address [address] [facility] [place] [place] [address] Phone [phone] Care Team Providers Care Lathing Supervisor Name Role Phone Jorge Luis Gil PA-C Primary Care Provider +1 -[phone] Reason for Visit * Reason Onset Date Comments Advice 04/24/2024 Bari Encounter Details Date Type Department Care Team (Late st Contact Info) Description 04/24/2024 Telephone Access Center, [place] [address] [facility] *DO NOT REMOVE THIS DEPARTMENT* [place] [address] Services, Scheduling [address] [place] [address] Advice (Bari ) Allergies Active Allergy Reactions [...] suspected opioid overdose. Seek immediate medical attention. https://www.Video Furnace.com/watch?v= [email or web address] 1 Each 3 04/06/2024 Active Simethicone 80 [...] only will have a drink on special occassiModria Utilities Answer Date Recorded Do you have [...] encounter Miscellaneous Notes * Telephone Encounter - Prema Antonio RN [...] Modules accepted: Orders * Telephone Encounter - Perma Antonio RN - 04/26/2024 11:45 AM EDT [...] Description 05/01/2024 12:45 PM EDT Imaging Radiology [facility] 1st [facility] [address] [facility] [place] [address] 05/03/2024 10:04 AM EDT Hospital Encounter OR [facility], Operating Room, [facility] - [address] [place] [address] [address] [place] [address] Boogie Rowe MD [address] [place] [address] 05/03/2024 10:04 AM EDT - 05/03/2024 11:00 AM EDT Surgery OR [facility], Operating Room, [facility] - 4th Floor [address] [place] [address] Boogie Rowe MD [address] [place] [address] INSERT TUNNELED CENTRAL VENOUS ACCESS WITH SUBQ PORT 05/03/2024 2:00 PM EDT Office Visit [facility]ematology[facility]On[facility] [place] 200 [facility] [place] [phone] Kenyon Candelaria MD [address] [place] [address] Scheduled Procedures Name Priority Associated Diagnoses Date/Ti [...] Discussed due to patient's condition Care Teams Lathing Supervisor Relationship Specialty Start Date End Date Jorge Luis Gil, TRANGC [address] [place] [address] PCP - General Physician Cop Examiner 03/23/24 documented as of this encounter
--- OUTSIDE RECORDS SUMMARY | 2024-04-28 00:52 | External Medical Summary | Summary of Care ---
Author Name Unknown Organization [facility] Address [address] [place] [place] [address] Phone [phone] Care Team Providers Care Shock Absorber Installer Name Role Phone Jorge Luis Gil PA-C Primary Care Provider +1 -[phone] Reason for Visit * Reason Onset Date Comments Advice 04/24/2024 Bari Encounter Details Date Type Department Care Team (Late st Contact Info) Description 04/24/2024 Telephone Access Center, [place] 100 [address] [facility] *DO NOT REMOVE THIS DEPARTMENT* [place] [address] Services, Scheduling [address] [place] [address] Advice (Bari ) Allergies Active Allergy Reactions [...] suspected opioid overdose. Seek immediate medical attention. https://www.Mintera.com/watch?v=v26c Yke4ImX 1 Each 3 04/06/2024 Active Simethicone 80 [...] Description 05/02/2024 11:45 AM EDT Imaging Radiology [facility] [address] [facility], [address] [place] [address] 05/03/2024 10:04 AM EDT Hospital Encounter OR [facility], Operating Room, [facility] - 4th Floor [address] [place] [address] [address] Boogie Rowe MD 400 [place] [address] 05/03/2024 10:04 AM EDT - 05/03/2024 11:00 AM EDT Surgery OR [facility], Operating Room, [facility] - 4th Floor [address] [place] [address] Boogie Rowe MD [address] [place] [address] INSERT TUNNELED CENTRAL VENOUS ACCESS WITH SUBQ [...] (1 of 2) 2015 COVID-19 Vaccine ( - season) 2023 02/26/2021, 02/05/2021 Influenza Vaccine (FLU shot) (Season Ended) 2024 GFR 04/06/2025 04/06/2024, 0507/2024, 04/04/2024, Additional history exists Diabetes Screening 04/06/2027 [...] Discussed due to patient's condition Care Teams Shock Absorber Installer Relationship Specialty Start Date End Date Jorge Luis Gil, TRANGC [address] [place] [address] [place] [address] PCP - General Physician Publications Sales Representative 03/23/24 documented as of this encounter
--- OUTSIDE RECORDS SUMMARY | 2024-04-28 00:52 | External Medical Summary | Summary of Care ---
Author Name Unknown Organization [facility] Address [address] [facility] [place] [address] Phone [phone] Care Team Providers Care Gas Producer Name Role Phone Jorge Luis Gil PA-C Primary Care Provider +1 -[phone] Reason for Referral * Evaluate & Treat - Unlimited Visits (Within 10 days (routine)) - Pending Review Specialty Diagnoses / Procedures Referred By Denise murillo Referred To Contact SURGICAL ONCOLOGY / Surgical Oncology Diagnoses Gastric mass Sanket Dominguez DO [address] [place] [address] Referral ID Status Reason Start Date Expiration Date Visits Requested Visits Authorized [id number] Pending Review Specialty Services Required 04/17/2024 04/17/[phone] Question Answer Referral Priority Within 10 days (routine) Where should this appointment be scheduled? Aretha Comments Eval for an antral mass Reason for Visit * Reason Onset Date Comments Advice 04/17/2024 Encounter Details Date Type Department Care Team (Late st Contact Info) Description 04/17/2024 Telephone Gastroenterology, [facility] [address] [place] [address] Sanekt Dominguez DO [address] [place] [address] Advice Allergies Active Allergy Reactions Criticality Noted [...] suspected opioid overdose. Seek immediate medical attention. https://www.[email or web address] Company Brands.com/watch?v= [email or web address] 1 Each 3 04/06/2024 Active Simethicone 80 [...] only will have a drink on special occassiCodementor Utilities Answer Date Recorded Do you have [...] encounter Miscellaneous Notes * Telephone Encounter - Alyssa Lopez OSA - 04/26/2024 12:44 PM EDT Pt had appt 04/24/[address] Harper. See tele enc from 04/20/24, Dr. Stephania Candelaria's office taking care of surg/oncology appt. * Telephone Encounter - Sanket Dominguez DO - 04/17/2024 11:45 AM EDT Patient with a 4 cm mass arising from the gastric antrum. Pathology most cosnsistent with adenocarcinoma. Plan F/u with Medical oncology Surgical oncology referral documented in this encounter Plan of Treatment Upcoming Encounters Date Type Department Care Team (Latest Contact Info) Description 05/01/2024 12:45 PM EDT Imaging Radiology [facility] [address] [place] [address] 05/03/2024 10:04 AM EDT Hospital Encounter OR [facility], Operating Room, [facility] - 4th Floor [address] [place] [address] Boogie Rowe MD [address] [place], [place] [address]JE[place] [address] 05/03/2024 10:04 AM EDT - 05/03/2024 11:00 AM EDT Surgery OR [facility], Operating Room, [facility] - 4th Floor [address] [place] [address] Boogie Rowe MD [address] [place] [address] INSERT TUNNELED CENTRAL VENOUS ACCESS WITH SUBQ PORT 05/03/2024 2:00 PM EDT Office Visit Hematology/Oncology [place] 200 [facility] [place] [address] Howie Candelaria MD 200 [place] [address] Scheduled Procedures Name Priority Associated Diagnoses Date/Ti me INSERT TUNNELED CENTRAL VENOUS ACCESS WITH SUBQ PORT Gastric adenocarcinoma (HCC) 05/03/2024 10:04 AM EDT Scheduled Referrals Name Type Priority Associated Diagnoses Orde r Schedule SURGICAL ONCOLOGY REFERRAL OP Referral Within 10 days (routine) Gastric mass Ordered: 04/17/2024 Health Maintenance Due Date Last Done Comments [...] shot) (Season Ended) 2024 GFR 04/06/2025 04/06/2024, 05/07/2024, 04/04/2024, Additional history exists Diabetes Screening 04/06/2027 [...] as of this encounter Visit Diagnoses Diagnosis Gastric mass- Primary Unspecified disorder of stomach and duodenum Gastric adenocarcinoma (HCC) Malignant neoplasm of stomach, unspecified site documented in this encounter Advance Directives * Full Code (Latest Code Status on File) Date Activated Date Inactivated Comments 03/31/2024 9:41 AM 04/06/2024 6:29 PM Question Answer Comments Discussion of Advance Direct marta occurred with: Not Discussed due to patient's condition Care Teams Gas Producer Relationship Specialty Start Date End Date Jorge Luis Gil, PANikkiC [address] [place] [address] PCP - General Physician Turkey Boner 03/23/24 documented as of this encounter
--- OUTSIDE RECORDS SUMMARY | 2024-04-28 00:52 | External Medical Summary | Summary of Care ---
Author Name Unknown Organization [facility] Address [address] [facility] [place] [address] Phone [phone] Care Team Providers Care Thermostatic Controls Supervisor Name Role Phone Jorge Luis Gil PA-C Primary Care Provider [phone] -[phone] Reason for Visit * Reason Onset Date Comments Advice 04/24/2024 Candelaria Encounter Details Date Type Department Care Team (Late st Contact Info) Description 04/24/2024 Refill Access Center, [place] 100 [address] [facility] *DO NOT REMOVE THIS DEPARTMENT* [place] [address] Services, Scheduling [address] [place] [address] Malignant neoplasm of stomach (HCC)* Allergies Active [...] suspected opioid overdose. Seek immediate medical attention. https://www.[email or web address]/watch?v= [email or web address] 1 Each 3 04/06/2024 Active Simethicone 80 [...] the morning. Pt unsure of milligrams. Active Ondansetron HCl 4 MG Oral Tablet [...] encounter Miscellaneous Notes * Addendum Note - Prema Antonio RN [...] noted to be slightly elevated. Preferred pharmacy [place]. Reviewed with Dr Candelaria- patient should continue [...] 05/01/2024 12:45 PM EDT Imaging Radiology [facility] 1st [facility] [address] [place] [address] 05/03/2024 10:04 AM EDT Hospital Encounter OR [facility], Operating Room, [facility] - [address] [place] [address] [address] [place] [address] [address] Boogie Rowe MD [address] [place] [address] 05/03/2024 10:04 AM EDT - 05/03/2024 11:00 AM EDT Surgery OR [facility], Operating Room, [facility] - [address] [place] [address] [address] [place] [address] [address] Boogie Rowe MD 400 [place] [address] INSERT TUNNELED CENTRAL VENOUS ACCESS WITH SUBQ PORT 05/03/2024 2:00 PM EDT Office Visit Hematology/Oncology [place] [address] [place] [address] Howie Candelaria MD [address] [place] [address] Scheduled Procedures Name Priority Associated Diagnoses Date/Ti [...] Discussed due to patient's condition Care Teams Thermostatic Controls Supervisor Relationship Specialty Start Date End Date Jorge Luis Gil PA-C [address] [place] [address] PCP - General Physician Heel Sprayer First 03/23/24 documented as of this encounter
--- OUTSIDE RECORDS SUMMARY | 2024-04-28 00:52 | External Medical Summary | Summary of Care ---
Author Name Unknown Organization [facility] Address [address] [facility] [place] [address] Phone [phone] Care Team Providers Care Administrative Liaison Name Role Phone Jorge Luis Gil PA-C Primary Care Provider +1 -[phone] Reason for Visit * Reason Onset Date Comments Advice 04/24/2024 Bari Encounter Details Date Type Department Care Team (Late st Contact Info) Description 04/24/2024 Telephone Access Center, [place] 100 [address] [facility] *DO NOT REMOVE THIS DEPARTMENT* [place] [address] Services, Scheduling [address] [place] [address] Advice (Bari ) Allergies Active Allergy Reactions [...] suspected opioid overdose. Seek immediate medical attention. https://www.APSX.com/watch?v=v26c Hwi3XmV 1 Each 3 04/06/2024 Active Simethicone 80 [...] 4:17 PM EDT Spoke with Dr. Candelaria- melyssa with scheduling on 05/09 for follow up [...] Description 05/02/2024 11:45 AM EDT Imaging Radiology [facility] [address] [place] [address] 05/03/2024 10:04 AM EDT Hospital Encounter OR [facility], Operating Room, [facility] - 4th Floor [address] [place] [address] Boogie Rowe MD [address] [place] [address] 05/03/2024 10:04 AM EDT - 05/03/2024 11:00 AM EDT Surgery OR [facility], Operating Room, [facility] - 4th Floor [address] [place] [address] [address] Boogie Rowe MD [address] [place] [address] INSERT TUNNELED CENTRAL VENOUS ACCESS WITH SUBQ [...] Discussed due to patient's condition Care Teams Administrative Liaison Relationship Specialty Start Date End Date Jorge Luis Gil, TRANGC [address] [place] [address] PCP - General Physician Neurology Hospitalist 03/23/24 documented as of this encounter
--- OUTSIDE RECORDS SUMMARY | 2024-04-28 00:52 | External Medical Summary | Summary of Care ---
Author Name Unknown Organization [facility] Address [address] [facility] [place] [address] Phone [phone] Care Team Providers Care Dairy Farmworker Name Role Phone Jorge Luis Gil PA-C Primary Care Provider +1 -[phone] Reason for Visit * Reason Onset Date Comments Advice 04/24/2024 Bari Encounter Details Date Type Department Care Team (Late st Contact Info) Description 04/24/2024 Telephone Access Center, [place] [address] [facility] *DO NOT REMOVE THIS DEPARTMENT* [place] [address] Services, Scheduling [address] [place] [address] Advice (Bari ) Allergies Active Allergy Reactions [...] suspected opioid overdose. Seek immediate medical attention. https://www.Convergent.io [email or web address]/watch?v= [email or web address] 1 Each 3 04/06/2024 Active Simethicone 80 [...] only will have a drink on special occassiCytoSolv Utilities Answer Date Recorded Do you have [...] accepted: Orders * Telephone Encounter - Prema Antonio, RN - 04/26/2024 11:45 AM EDT Called [...] noted to be slightly elevated. Preferred pharmacy [place]. Reviewed with Dr Candelaria- patient should continue [...] 12:45 PM EDT Imaging Radiology [facility] 1st [facility] 132 [facility] [place] [address] 05/03/2024 10:04 AM EDT Hospital Encounter OR [facility], Operating Room, [facility] - [address] [place] [address] [address] [place] [address] Boogie Rowe MD [address] [place] [address] 05/03/2024 10:04 AM EDT - 05/03/2024 11:00 AM EDT Surgery OR [facility], Operating Room, [facility] [address] [place] [address] Boogie Rowe MD [address] [place] [address] INSERT TUNNELED CENTRAL VENOUS ACCESS WITH SUBQ PORT 05/03/2024 2:00 PM EDT Office Visit Hematology/Oncology [facility] [address] [place] [phone] Kenyon Candelaria MD [address] [place] [address] Scheduled Procedures Name Priority Associated Diagnoses Date/Ti [...] Discussed due to patient's condition Care Teams Dairy Farmworker Relationship Specialty Start Date End Date Jorge Luis Gil, ALISA [address] [place] [address] [place] [phone] PCP - General Physician Inspector Aide 03/23/24 documented as of this encounter
--- OUTSIDE RECORDS SUMMARY | 2024-04-28 00:52 | External Medical Summary | Summary of Care ---
Author Name Unknown Organization [facility] Address [address] [place] [address] Phone [phone] Care Team Providers Care Riverboat Master Name Role Phone Jorge Luis Gil PA-C Primary Care Provider +1 -[phone] Reason for Visit * Reason Onset Date Comments Advice 04/24/2024 Bari Encounter Details Date Type Department Care Team (Late st Contact Info) Description 04/24/2024 Telephone Access Center, [place] 100 [address] [facility] *DO NOT REMOVE THIS DEPARTMENT* [place] [address] Services, Scheduling [address] [place] [address] Advice (Bari ) Allergies Active Allergy Reactions [...] suspected opioid overdose. Seek immediate medical attention. https://www.iLoop Mobile.com/watch?v=v26c Vml6XsA 1 Each 3 04/06/2024 Active Simethicone 80 [...] Description 05/02/2024 11:45 AM EDT Imaging Radiology [facility] [address] [place] [address] 05/03/2024 10:04 AM EDT Hospital Encounter OR [facility], Operating Room, [facility] - 4th Floor [address] [place] [address] Boogie Rowe MD [address] [place] [address] 05/03/2024 10:04 AM EDT - 05/03/2024 11:00 AM EDT Surgery OR [facility], Operating Room, [facility] - 4th Floor [address] [place] [address] Boogie Rowe MD [address] [place] [address] INSERT TUNNELED CENTRAL VENOUS ACCESS WITH SUBQ [...] Discussed due to patient's condition Care Teams Riverboat Master Relationship Specialty Start Date End Date Jorge Luis Gil, PANikkiC [address] [place] [address] PCP - General Physician Doll Dresser 03/23/24 documented as of this encounter
--- OUTSIDE RECORDS SUMMARY | 2024-04-28 00:53 | External Medical Summary | Summary of Care ---
Author Name Unknown Organization [facility] Address [address] [place] [address] Phone [phone] Care Team Providers Care Stripping Shovel Oiler Name Role Phone Jorge Luis Gil PA-C Primary Care Provider +1 -[phone] Reason for Visit * Reason Onset Date Comments Advice 04/18/2024 Encounter Details Date Type Department Care Team (Late st Contact Info) Description 04/18/2024 Telephone Gastroenterology, [facility] 132 [facility] [place] [address] Services, Scheduling [address] [place] [address] Advice Allergies Active Allergy Reactions Criticality Noted Date Comments Sulfa Antibiotics Other (Please comment) 2023 Pt states she had a reaction as a child documented as of this encounter (statuses as of 04/18/2024) Medications Medication Sig Dispensed Refills Start Date [...] mouth in the morning and 1 Tablet in the evening. Active HYDROcodone-Aceta minophen 7.5-325 MG Oral Tablet [...] suspected opioid overdose. Seek immediate medical attention. https://www.Market6.com/watch?v=v26c Rgh0QuG 1 Each 3 04/06/2024 Active Additional Information [...] before bedtime. 120 Tablet 04/09/2024 05/09/2024 Active Multi Vitamin Daily Oral Tablet Take by mouth. 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 Begum's recommendation, Surgical Oncology has already contacted her. * Telephone Encounter - Sanket Dominguez DO - 04/18/2024 12:30 PM EDT Use of Protonix 1 time daily should be sufficient. We are awaiting her pathology results, I have placed a surgical Oncology referral for the patient as well * Telephone Encounter - Carlie Hines LPN - 04/18/2024 11:37 AM EDT Kamila feels good from UGI yesterday. She is wondering how to take the Pantoprazole. Her original GI MD instructed her to take it BID, but Dr. Begum stated QD. She is no longer seeing her original GI, so do you want it QD or BID. She also wanted to know if you want her on Sucralfate. Please advise * Telephone Encounter - Loli Simmons OSA - 04/18/2024 11:28 AM EDT Patient calling in has Questions regarding Pantoprazole Sodium 40 MG Oral Tablet Delayed Release (Protonix) Would like a call back to discuss. Would also like to discuss endoscopy Procedure. documented in this encounter Plan of Treatment Upcoming Encounters Date Type Department Care Team (Late st Contact Info) Description 04/19/2024 3:45 PM EDT [facility] [address] [place] [address] Clinic, Emergency General Surgery [address] [place] [address] 04/24/2024 11:20 AM EDT [facility] [address] [place] [address] Taye Harper MD [address] [place] [address] Health Maintenance Due Date Last Done Comments [...] Discussed due to patient's condition Care Teams Stripping Shovel Oiler Relationship Specialty Start Date End Date Jorge Luis Gil, ALISA [address] [place] [address] [place] [address] PCP - General Physician Liquid Sugar Fortifier 03/23/24 documented as of this encounter
--- OUTSIDE RECORDS SUMMARY | 2024-04-28 00:53 | External Medical Summary | Summary of Care ---
Author Name Unknown Organization [facility] Address [address] [place] [address] Phone [phone] Care Team Providers Care Flattening Machine Operator Name Role Phone Jorge Luis Gil PA-C Primary Care Provider +1 -[phone] Reason for Visit * Reason Onset Date Comments Appointment 04/20/2024 Encounter Details Date Type Department Care Team (Late st Contact Info) Description 04/20/2024 Telephone Hematology/Oncology [facility] 200 [facility] [place] [address] Howie Candelaria MD 200 [facility] [place] [address] Appointment Allergies Active Allergy Reactions Criticality Noted Date Comments Sulfa Antibiotics Other (Please comment) 2023 Pt states she had a reaction as a child documented as of this encounter (statuses as of 04/20/2024) Medications Medication Sig Dispensed Refills Start Date [...] suspected opioid overdose. Seek immediate medical attention. 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 Cancer related pain 03/31/2024 documented as of this encounter (statuses as of 04/20/2024) Social History Tobacco Use Types Packs/Day Years [...] Miscellaneous Notes * Telephone Encounter - Roberta García OSA - 04/20/2024 1:33 PM EDT Request Summary [[id number]] Procedure: IR VENOUS ACCESS MEDIPORT Status: Needs Scheduling Requested appt date: 04/27/2024 Authorizing: Howie Candelaria MD in [facility] Referral: [id number] (Pending Review) Expires: 05/20/2025 Priority: Routine Diagnosis: Gastric adenocarcinoma (HCC) [C16.9] Order Specific Questions Is this Procedure for Evaluation, Venous Access Insertion or Removal? Venous Access Insertion Mediport Type Single Lumen Reason for Procedure Chemotherapy. Where Will The Procedure Be Performed? [facility] Diagnosis Gastric adenocarcinoma. Request History Action Date and Time User Details Request Created 04/20/2024 11:42 Howie Candelaria MD Patient Called 04/20/2024 12:20 Kiesha Haile OSA Details IR to review Workqueue Summary Current Workqueues Entry Current Tab RADIANT SOR IR TECH [6738] RADIANT IR ORDERS [2844] RADIANT SOR IR TECH [facility] [4810] 04/20/2024 11:42 04/20/2024 11:42 04/20/2024 11:42 Active Active Active Details Details Details documented in this encounter Plan of Treatment Upcoming Encounters Date Type Department Care Team (Late st Contact Info) Description 04/24/2024 11:20 AM EDT Office Visit General Surgery, [place] [address] [place] [address] Taye Harper MD [address] [place], [place] [id number] Health Maintenance Due Date Last Done Comments [...] Discussed due to patient's condition Care Teams Flattening Machine Operator Relationship Specialty Start Date End Date Jorge Luis Gil, ALISA [address] [place] [address] [place] [address] PCP - General Physician Technologist Development 03/23/24 documented as of this encounter
--- OUTSIDE RECORDS SUMMARY | 2024-04-28 00:53 | External Medical Summary | Summary of Care ---
Author Name Unknown Organization [facility] Address [address] [place] [place] [address] Phone [phone] Care Team Providers Care Stud Beef Cattle Farmer Name Role Phone Jorge Luis Gil PA-C Primary Care Provider [phone] [phone] Reason for Referral * Precert (Within 10 days (routine)) - Pending Review Specialty Diagnoses / Procedures Referred By Denise murillo Referred To Contact Radiology Diagnoses Gastric adenocarcinoma (HCC) Procedures IR VENOUS ACCESS MEDIPORT Kenyon Candelaria MD [address] [place] [address] Referral ID Status Reason Start Date Expiration Date V isits Requested Visits Authorized [id number] Pending Review 04/27/2024 999 [id number] * Evaluate & Treat - Unlimited Visits (Within 10 days (routine)) - Pending Review Specialty Diagnoses / Procedures Referred By Denise murillo Referred To Contact SURGICAL ONCOLOGY / Surgical Oncology Diagnoses Gastric adenocarcinoma (HCC) Kenyon Candelaria MD [address] [place] [address] Referral ID Status Reason Start Date Expiration Date Visits Requested Visits Authorized [id number] Pending Review Specialty Services Required 04/20/2024 999 [id number] Question Answer Referral Priority Within 10 days (routine) Where should this appointment be scheduled? External - [facility] Yarely Comments 58-year-old female, a case of gastric adenocarcinoma, possible perforation earlier late last year, no evidence of distant metastatic disease. Would like to have surgical Oncology evaluation at [facility]. Thanks. Dr. Kenyon Candelaria Hem/Onc Reason for Visit * Reason Onset Date Comments Advice 04/20/2024 Encounter Details Date Type Department Care Team (Leia st Contact Info) Description 04/20/2024 Telephone Gastroenterology, [facility] [address] [place] [address] Sanket Dominguez DO [address] [place] [place] [address] Advice Allergies Active Allergy Reactions Criticality Noted Date Comments Sulfa Antibiotics Other (Please comment) 2023 Pt states she had a reaction as a child documented as of this encounter (statuses as of 04/21/2024) Medications Medication Sig Dispensed Refills Start Date [...] suspected opioid overdose. Seek immediate medical attention. 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 Cancer related pain 03/31/2024 documented as of this encounter (statuses as of 04/21/2024) Social History Tobacco Use Types Packs/Day Years [...] She says that her brother works at [facility] and the she would like to [...] 11:20 AM EDT Office Visit General Surgery, [place] [address] [place] [address] Taye Harper MD [address], [place] [id number] Pending Results Name Type Priority Associated Diagnoses Date /Time ANATOMIC PATHOLOGY (BM/SURGICAL/CYTOLOGY) ADD ON REQUEST Lab Routine Gastric adenocarcinoma (HCC) 04/21/2024 9:52 AM EDT Scheduled Orders Name Type Priority Associated Diagnoses Orde r Schedule IR VENOUS ACCESS MEDIPORT Medical Imaging Routine Gastric adenocarcinoma (HCC) Expected: 04/27/2024, Expires: 05/20/2025 Scheduled Referrals Name Type Priority Associated Diagnoses [...] of 2) 2015 COVID-19 Vaccine (3 - 2022- season) 2023 02/26/2021, 02/05/2021 Influenza Vaccine (FLU [...] of this encounter Visit Diagnoses Diagnosis Gastric adenocarcinoma (HCC)- Primary Malignant neoplasm of stomach, unspecified site documented in this encounter Advance Directives * Full Code (Latest Code Status on File) Date Activated Date Inactivated Comments 03/31/2024 9:41 AM 04/06/2024 6:29 PM Question Answer Comments Discussion of Advance Direct marta occurred with: Not Discussed due to patient's condition Care Teams Stud Beef Cattle Farmer Relationship Specialty Start Date End Date Jorge Luis Gil, TRANGC [address] [place] [address] PCP - General Physician Tax Examiner 03/23/24 documented as of this encounter
--- OUTSIDE RECORDS SUMMARY | 2024-04-28 00:53 | External Medical Summary ---
Author Name Unknown Address Unknown Organization K01:[facility] [place] [address] [place] [address] Laboratory Report Ordering Provider Test Date Status JADON HOLLINS 04/21/2024 09:52:08 Final Observation Date Value Abnormality Reference (Units ) Status COMMENT 04/21/2024 09:52:08 MyGenVar Gastroesophageal Neoplasm Gene Panel, NGS Final COMMENT 04/21/2024 09:52:08 Ordered by: Dr. Sanket Dominguez 04/21/24 Final COMMENT 04/21/2024 09:52:08 QA for slides JCD 04/21/24 Final COMMENT 04/21/2024 09:52:08 Slides to WQ 04/21/24 JCD Final COMMENT 04/21/2024 09:52:08 Per WQ, ordered on A1, 5% tumor 04/24/24 JCD Final Performing Location [facility] [place] - [address] [place] [address]
--- OUTSIDE RECORDS SUMMARY | 2024-04-28 00:53 | External Medical Summary | Summary of Care ---
Author Name Unknown Organization [facility] Address [address] [place] [address] Phone [phone] Care Team Providers Care Bleaching Machine Operator Name Role Phone Jorge Luis Gil PA-C Primary Care Provider [phone] [phone] Reason for Referral * Precert (Within 10 days (routine)) - Pending Review Specialty Diagnoses / Procedures Referred By Denise murillo Referred To Contact Radiology Diagnoses Gastric adenocarcinoma (HCC) Procedures CT ABD/PELVIS W IV AND W ORAL CONTRAST Cuong Vazquez MD [address] [place] [address] Referral ID Status Reason Start Date Expiration Date V isits Requested Visits Authorized [id number] Pending Review 05/01/2024 999 [id number] Reason for Visit * Reason Comments NEW PATIENT * Evaluate & Treat - Unlimited Visits (Within 10 days (routine)) - Pending Review Specialty Diagnoses / Procedures Referred By Denise murillo Referred To Contact SURGICAL ONCOLOGY / Surgical Oncology Diagnoses Gastric mass Sanket Dominguez, DO [address] [place] [address] Referral ID Status Reason Start Date Expiration Date Visits Requested Visits Authorized [id number] Pending Review Specialty Services Required 04/17/2024 04/17/2025 999 [id number] Encounter Details Date Type Department Care Team (Latest Contact Info) Description 04/24/2024 11:20 AM EDT Office Visit General Surgery, [place] [address] [place] [address] Taye Harper MD [address] [place] [address] Gastric adenocarcinoma (HCC)* Allergies Active Allergy Reactions Criticality Noted Date Comments Sulfa Antibiotics Other (Please comment) 2023 Pt states she had a reaction as a child documented as of this encounter (statuses as of 04/24/2024) Medications Medication Sig Dispensed Refills Start Date [...] suspected opioid overdose. Seek immediate medical attention. 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 Cancer related pain 03/31/2024 documented as of this encounter (statuses as of 04/24/2024) Social History Tobacco Use Types Packs/Day Years [...] on file documented as of this encounter Last Filed Vital Signs Vital Sign Reading Time Taken Comments Blood Pressure 118/66 04/24/2024 11:20 AM EDT Pulse 90 04/24/2024 11:20 AM EDT Temperature 36.7 C (98.1 F) 04/24/2024 11:20 AM E DT Respiratory Rate - - Oxygen Saturation 98% 04/24/2024 11:20 AM EDT Inhaled Oxygen Concentration - - Weight 88.5 kg (195 lb 3.2 oz) 04/24/2024 11:20 AM EDT Height 172.5 cm (5' 7.9") 04/24/2024 11:20 AM ED T Body Mass Index 29.77 04/24/2024 11:20 AM EDT documented in this encounter Functional Status Functional Status Response [...] No 03/31/2024 documented as of this encounter Progress Notes * Cuong Vazquez MD - 04/24/2024 11:30 AM EDT Images from the original note were not included. SURGICAL ONCOLOGY [facility] Kamila Bañuelos [id number] 04/24/2024 HPI: Kamila Bañuelos is a 58 year old female with PMHx HTN, cardiac cath (07/31) who presents to clinic today for evaluation of gastric adenocarcinoma. Patient presented to [facility] on 03/31 for abdominal pain with radiation to the back and noted to have a contained gastric perforation. Patient had a known gastric antrum mass and underwent PET scan prior to that admission. During hospitalization, repeat imaging was performed and NGT was inserted for bowel decompression. Paitent underwent diagnostic laparoscopy with peritoneal washings at that time which were benign. Patient underwent endoscopic evaluationwhich showed a 4x3cm mass in gastric antrum staged T3. Noticed 60 pound weight loss in last year. Has decreased appetite associated with bloating and nausea. Past Medical History: Diagnosis Date Perforated gastric ulcer (HCC) S/P cardiac cath Past Surgical History: Procedure Laterality Date DENTAL SURGERY PROCEDURE NEC EGD, W/ENDOSCOPIC US 04/17/2024 ESOPHAGOGASTRODUODENOSCOPY (EGD), FLEXIBLE, TRANSORAL, ENDOSCOPIC ULTRASOUND performed by Sanket Dominguez DO at ENDOSCOPY [facility] LAPAROSCOPY DIAGNOSTIC N/A 04/05/2024 LAPAROSCOPY DIAGNOSTIC performed by Ligia Navarro MD at OR [facility] TOOTH ROOT REMOVAL Current Outpatient Medications Medication Sig Dispense Refill Losartan Potassium 50 MG Oral Tablet (Cozaar) Take 1 Tablet by mouth in the morning. Metoprolol Succinate ER 25 MG Oral Tablet Extended Release 24 Hour (toPROL XL) Take 1 Tablet by mouth at bedtime. Pantoprazole Sodium 40 MG Oral Tablet Delayed Release (Protonix) Take 1 Tablet by mouth in the morning. Polyethylene Glycol 3350 17 GM Oral Packet (MiraLax) Take 1 Packet by mouth in the morning. Ondansetron HCl 4 MG Oral Tablet Take 1 Tablet by mouth every 8 hours as needed for Nausea. Vitamin D3 50 MCG (2000 UT) Oral Capsule Take 1 Capsule by mouth in the morning. Multi Vitamin Daily Oral Tablet Take by mouth. Sertraline HCl 25 MG Oral Tablet (Zoloft) Take 1 Tablet by mouth in the morning. Pt unsure of milligrams. HYDROcodone-Acetaminophen 7.5-325 MG Oral Tablet Take 1 Tablet by mouth every 4 hours as needed forPain, Severe. (Patient not taking: Reported on 04/24/2024) Sucralfate 1 GM/10ML Oral Suspension (Carafate) Take 10 mL by mouth in the morning and 10 mL at noon and 10 mL in the evening and 10 mL before bedtime. (Patient not taking: Reported on 04/14/2024) Zolpidem Tartrate 5 MG Oral Tablet (Ambien) Take 1 Tablet by mouth at bedtime as needed for Sleep. (Patient not taking: Reported on 04/13/2024) Naloxone HCl 4 MG/0.1ML Nasal Liquid (Narcan Nasal) Administer 1 spray into 1 nostril for suspectedopioid overdose. Seek immediate medical attention. https://www.youtube.com/watch?v=s87zHzj0EoX 1 Each 3 Simethicone 80 MG Oral Tablet Chewable (Mylicon) Chew & swallow 2 tablets every 6 hours as needed for Gas. (Patient not taking: Reported on 04/24/2024) 40 Tablet 0 Sucralfate 1 GM Oral Tablet (Carafate) Take 1 Tablet by mouth in the morning and 1 Tablet at noon and 1 Tablet in the evening and 1 Tablet before bedtime. (Patient not taking: Reported on 04/24/2024) 120 Tablet 0 No current facility-administered medications for this visit. Review of patient's allergies indicates: Allergen Reactions Sulfa Antibiotics Other (Please comment) Pt states she had a reaction as a child Family History Problem Relation Name Age of Onset Heart disease Mother Social History Socioeconomic History Marital status: Spouse name: Not on file Number of children: Not on file Years of education: Not on file Highest education level: Not on file Occupational History Not on file Tobacco Use Smoking status: Never Smokeless tobacco: Never Vaping Use Vaping status: Never Used Substance and Sexual Activity Alcohol use: Not Currently Alcohol/week: 2.0 standard drinks of alcohol Types: 2 1.5 oz of liquor per week Comment: quit Nov 2021, only will have a drink on special occassions Drug use: Never Sexual activity: Not on file Other Topics Concern Not on file Social History Narrative Not on file Social Determinants of Health Financial Resource Strain: Not on file Food Insecurity: Not on file Transportation Needs: Not on file Physical Activity: Not on file Stress: Not on file Social Connections: Not on file Intimate Partner Violence: Not on file Housing Stability: Not on file Review of Systems: All other systems reviewed and negative. Physical Examination: BP 118/66 | Pulse 90 | Temp 36.7 C (98.1 F) | Ht 1.725 m (5' 7.9") | Wt 88.5 kg (195 lb 3.2 oz)| SpO2 98% | BMI 29.77 kg/m | BSA 2.06 m General:alert and oriented x 3 HEENT: PERRLA Heart: no murmur Lungs: bilaterally clear to auscultation Abdomen:Soft, non distended, midlly tender to palpation in epigastrium Extremities: no CCE and no inguinal adenopathy Skin: no skin changes Musculoskeletal: FROM Labs: CEA 1.3 Procedures: 04/17 EGD Impression: - Normal esophagus. - Z-line regular, 36 cm from the incisors. - Normal cardia, gastric fundus and gastric body. 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 Biopsied. - Normal duodenal bulb and second portion of the duodenum. 04/17 EUS Impression: - There was no evidence of significant pathology in the visualized portion of the liver. - There was no sign of significant pathology in the pancreatic body, pancreatic tail and main pancreatic duct. - Endosonographic images of the left adrenal gland were unremarkable. - A 40 x 30 mm mass was found in the antrum of the stomach. This was staged T3 (based on invasion into) N0 M0 by endosonographic criteria. The staging applies if malignancy is confirmed. - No specimens collected. Radiology: PET 04/07 CT A/P 03/31 IMPRESSION 1. No extraluminal contrast identified. Similar size of the lobulated collection anterior and inferior to the antrum, presumed abscess based on prior imaging. Necrotic neoplastic mass is a possibility. 2. Segmental thickening of the transverse colon adjacent to the collection is likely reactive. 3. Irregular antral thickening, likely neoplastic. 4. Other findings as above. Pathology: A. Gastric mass, biopsy: Invasive adenocarcinoma, well to moderately differentiated, in a background of adenomatous epithelium and foveolar gastric mucosa Result: Antibody Clone Block TPS IC CPS PD-L1 (SP263) A1 <1% <1% <1% Her-2/juliet expression is NEGATIVE (1+ average membranous intensity) A. Peritoneal washings, Cytology: Adequacy: Satisfactory for evaluation. Category: Benign. Interpretation: Reactive mesothelial cells and mixed inflammation. Other: Cellblock: The histological sections of the cellblock preparation show similar findings. Assessment: 58 year old female with invasive gastric adenocarcinoma of the antrum. Plan: -Plan for port placement on 05/03 at [facility] -Follow-up after oncology evaluation and chemotherapy for surgical discussion -Will receive treatment at [facility] Cuong Vazquez MD General Surgery, [address] [address] Patient examined at bedside and will be discussed w/ Dr. Harper. I have discussed the patient's management with the resident/fellow physician and agree with the note. Please refer to the documented findings and plan of care. This patient's visit today consisted ofan evaluation. I was present and confirmed the findings of the history and exam. Complicated with a possible perforation versus extension of the mass with inflammation- cytology was benign - plan for repeat CT prior to starting chemo - chemo and then re-eval for surgery Taye Harper MD manager property Section Head, Surgical Oncology and Endocrine Surgery [facility] [place] [address] Office: [phone] [email or web address] documented in this encounter Plan of Treatment Upcoming Encounters Date Type Department Care Team (Latest Contact Info) Description 05/02/2024 11:45 AM EDT Imaging Radiology [facility] [place] [address] [facility] [place] [address] 05/03/2024 10:04 AM EDT Hospital Encounter OR [facility], Operating Room, [facility] - 4th Floor [address] [address] Boogie Rowe MD [address] [place] [address] 05/03/2024 10:04 AM EDT - 05/03/2024 11:00 AM EDT Surgery OR [facility], Operating Room, [facility] - 4th Floor [address] [place] [address] Boogie Rowe MD [address] [place] [address] INSERT TUNNELED CENTRAL VENOUS ACCESS WITH SUBQ PORT Scheduled Orders Name Type Priority Associated Diagnoses Orde r Schedule CT ABD/PELVIS W IV AND W ORAL CONTRAST Medical Imaging Routine Gastric adenocarcinoma (HCC) Expected: 05/01/2024, Expires: 05/24/2025 Scheduled Procedures Name Priority Associated Diagnoses Date/Ti [...] Discussed due to patient's condition Care Teams Bleaching Machine Operator Relationship Specialty Start Date End Date Jorge Luis Gli, ALISA [address] [place] [address] PCP - General Physician Office Services Assistant 03/23/24 documented as of this encounter
--- OUTSIDE RECORDS SUMMARY | 2024-04-28 00:53 | External Medical Summary | Summary of Care ---
Author Name Unknown Organization [facility] Address [address] [place] [facility] [place] [address] Phone [phone] Care Team Providers Care Gang Vibrator Operator Name Role Phone Jorge Luis Gil PA-C Primary Care Provider +1 [phone] Reason for Visit * Reason Onset Date Comments Test Results Lab 04/20/2024 Encounter Details Date Type Department Care Team (Late st Contact Info) Description 04/20/2024 Telephone Hematology/Oncology Treatment, [place] [address] [place] [address] Howie Candelaria MD [address] [place] [address] Test Results Lab Allergies Active Allergy Reactions Criticality Noted Date [...] suspected opioid overdose. Seek immediate medical attention. [email or web address]://[email or web address]/watch?v=v26c [email or web address] 1 Each 3 04/06/2024 Active Additional Information [...] encounter Miscellaneous Notes * Telephone Encounter - Maria Fernanda Antonio RN - 04/20/2024 11:39 AM EDT Biopsy results are back. * Telephone Encounter - Maria Fernanda Antonio RN - 04/20/2024 11:38 AM EDT ----- Message from Howie Candelaria MD sent at 04/18/2024 7:26 AM EDT ----- Blood workup done on 04/13/2024: -Serum iron 29, TIBC 257, iron saturation 11% -CEA level--> 1.3 -folic acid--> 12.8 -Ferritin level--> 1591 -Vitamin B12--> > 2000 No need for intravenous iron therapy. She had upper GI endoscopic as well as EUS on 04/17/2024. About 4 cm gastric antral mass noted, biopsy done, result pending. After the biopsy result, will refer her to surgical oncologist at [facility], NGS checkup, port placement. documented in this encounter Plan of Treatment Upcoming Encounters Date Type Department Care Team (Late st Contact Info) Description 04/24/2024 11:20 AM EDT Office Visit General Surgery, [place] [address] [place] [address] Taye Harper MD [address] [place] [address] Health Maintenance Due Date Last Done Comments [...] Discussed due to patient's condition Care Teams Gang Vibrator Operator Relationship Specialty Start Date End Date Jorge Luis Gil PA-C [address] [place], [place] [address] [address] PCP - General Physician Capacitor Tester 03/23/24 documented as of this encounter
--- OUTSIDE RECORDS SUMMARY | 2024-04-28 00:53 | External Medical Summary | Summary of Care ---
Author Name Unknown Organization [facility] Address [address] [place] [address] Phone [phone] Care Team Providers Care Opticianry Teacher Name Role Phone Jorge Luis Gil PA-C Primary Care Provider [phone] [phone] Reason for Visit * Reason Onset Date Comments Advice 04/18/2024 Encounter Details Date Type Department Care Team (Late st Contact Info) Description 04/18/2024 Telephone Gastroenterology, [facility] [address] [facility] [place] [address] Services, Scheduling [address] [place] [address] Advice Allergies Active Allergy Reactions Criticality Noted [...] suspected opioid overdose. Seek immediate medical attention. [email or web address]/watch?v=v26c [email or web address] 1 Each 3 04/06/2024 Active Additional Information [...] encounter Miscellaneous Notes * Telephone Encounter - Sanket Dominguez DO [...] Description 04/19/2024 3:45 PM EDT Telemedicine General Surgery, [place] [address] [place], [place] [phone] Clinic, Emergency General Surgery [place] [address] 04/24/2024 11:20 AM EDT Office Visit General Surgery, [place] [address] [place], [place] [id number] Taye Harper MD [address] [place], [place] [phone] Health Maintenance Due Date Last Done Comments [...] Discussed due to patient's condition Care Teams Opticianry Teacher Relationship Specialty Start Date End Date Jorge Luis Gil, TRANGC [address] [place] [address] [place] [address] PCP - General Physician Maxillofacial Prosthodontist 03/23/24 documented as of this encounter
--- OUTSIDE RECORDS SUMMARY | 2024-04-28 00:53 | External Medical Summary | Summary of Care ---
Author Name Unknown Organization [facility] Address [address] [facility] [place] [address] Phone [phone] Care Team Providers Care Dental Hygiene Teacher Name Role Phone Jorge Luis Gil PA-C Primary Care Provider [phone] [phone] Reason for Visit * Reason Onset Date Comments Scheduling 04/24/2024 Encounter Details Date Type Department Care Team (Late st Contact Info) Description 04/24/2024 Telephone Hematology/Oncology [facility] [place] [address] [facility] [place] [phone] Howie Candelaria MD [address] [facility] [place] [address] Scheduling Allergies Active Allergy Reactions Criticality Noted Date [...] suspected opioid overdose. Seek immediate medical attention. [email or web address]?v=v26c [email or web address] 1 Each 3 04/06/2024 Active Additional Information [...] encounter Miscellaneous Notes * Telephone Encounter - Kiesha Haile OSA - 04/24/2024 9:35 AM EDT Spoke to patient to schedule the Mediport Insertion for 05/03 at [facility] patient looking into a second opinion but decided to at least have the scheduled here in case she has no other options Patient identified by: name Person taught: Patient METHOD: Lecture-telephone interview PATIENT INSTRUCTIONS GIVEN: - General Preoperative Instructions Reviewed - NPO Instructions Reviewed, pt to stop eating 8 hours prior to procedure and stop drinking 2 hoursprior to procedure. -Cage/Vault Supervisor required Location and check-in instructions Verbalizes understanding of education: Yes Procedure date at time of Imaging Encounter: 05/03 What procedure is patient having? Mediport Insertion Laterality confirmed as Not Applicable Does the patient have a yellow bar? did not The Patient was given the opportunity to ask questions concerning the procedure. Signature: AYDEN Knutson 04/24/2024 documented in this encounter Plan of Treatment Upcoming Encounters Date Type Department Care Team (Latest Contact Info) Description 05/03/2024 10:04 AM EDT Hospital Encounter OR [facility], Operating Room, [facility] - 4th Floor [address] [place], [place] [address] [address] Boogie Rowe MD [address] [place] [address] 05/03/2024 10:04 AM EDT - 05/03/2024 11:00 AM EDT Surgery OR [facility], Operating Room, [facility] - 4th Floor [address] [place] [address] Boogie Rowe MD [address] [place] [address] INSERT TUNNELED CENTRAL VENOUS ACCESS WITH SUBQ [...] Discussed due to patient's condition Care Teams Dental Hygiene Teacher Relationship Specialty Start Date End Date Jorge Luis Gil, TRANGC [address] [place] [address] PCP - General Physician Category Development Analyst 03/23/24 documented as of this encounter
--- OUTSIDE RECORDS SUMMARY | 2024-04-28 00:53 | External Medical Summary | Summary of Care ---
Author Name Unknown Organization [facility] Address [address] [place] [address] Phone [phone] Care Team Providers Care Cath Lab Nurse Name Role Phone Jorge Luis Gil PA-C Primary Care Provider [phone] Reason for Visit * Reason Comments Follow Up Encounter Details Date Type Department Care Team (Late st Contact Info) Description 04/19/2024 3:45 PM EDT Telemedicine [facility] [address], [place] [id number] Clinic, Emergency General Surgery [address], [place] [id number] Gastric adenocarcinoma (HCC)* Allergies Active Allergy Reactions [...] suspected opioid overdose. Seek immediate medical attention. [email or web address] Each 3 04/06/2024 Active Additional Information [...] as of this encounter Progress Notes * Sherry Aleman MD - 04/20/2024 3:59 PM EDT I have discussed the patient's management with the medical trainee and agree with the note. Please refer to the documented findings and plan of care. This patient's visit today consisted of a telephonic medicine visit. I personally did not speak to the patient. Sherry Aleman MD * Jenni Ling MD - 04/19/2024 3:45 PM EDT Images from the original note were not included. GENERAL SURGERY CLINIC TELEPHONE FOLLOW-UP [facility] Name: Kamila Bañuelos Date: 04/19/2024 Time: 3:21 PM Patient location: HOME. I was in a hospital or clinic location. After connecting through televideo,patient was verified with two unique identifiers. Patient (or authorized legal medical office representative) was then informed that this was a Telemedicine visit and being conducted confidentially over secure lines. Methods to assure confidentiality were taken. Patient acknowledged consent and understanding of pr ivacy and security of the Telemedicine visit. The patient agreed to participate. Subjective Kamila Bañuelos is a 58 year old female that presents for follow-up. Patient was recently admitted to [facility] 03/31-04/05 with concerns for gastric perforation in the settingof known gastric adenocarcinoma. She was treated conservatively with NGT placement and bowel rest. Heme/Onc was consulted while admitted and recommended tissue biopsy of the necrotic mass with associated collection anterior to the stomach. She underwent diagnostic laparoscopy with peritoneal washings on 04/05. Her NGT was removed prior to going to the OR. She went home on POD1. She has seen Oncology in the clinic since surgery, sees Dr. Harper next week. She also underwent EUS on 04/[address] Dominguez. Since discharge, patient is doing well overall. She has been eating well without nausea, vomiting. Denies abdominal pain. Having BM. She denies issues with her incision aside from bruising, but they are still approximated without drainage. She denies fevers, chills. Objective There were no vitals filed for this visit. PHYSICAL EXAM: RESP/CHEST: normal respiratory effort NEURO: awake, alert, oriented LABS: N/A IMAGING: EGS/EUS, 04/17: - There was no evidence of significant [...] malignancy is confirmed. - No specimens collected. PATHOLOGY: A. Peritoneal washings, Cytology: Adequacy: Satisfactory for evaluation. Category: Benign. Interpretation: Reactive mesothelial cells and mixed inflammation. Other: Cellblock: The histological sections of the cellblock preparation show similar findings. EUS 04/17 Path Pending Assessment Kamila Bañuelos is a 58 year old female with recent admission for sequelae related to newly diagnosed gastric adenocarcinoma. She underwent diagnostic lap with peritoneal washings per Oncology recommendations. She is recovering well from surgery. Plan - Continue lifting restrictions <10 lb for another 4 weeks. Otherwise activity as tolerated. - Diet as tolerated. - Follow-up with Oncology/Surg Onc - RTC PRN Jenni Ling MD General Surgery PGY-5 documented in this encounter Plan of Treatment Upcoming Encounters Date Type Department Care Team (Late st Contact Info) Description 04/24/2024 11:20 AM EDT Office Visit General Surgery, [facility] [address] [place] [address] Taye Harper MD [address] [place] [address] Health Maintenance Due Date Last Done Comments [...] Discussed due to patient's condition Care Teams Cath Lab Nurse Relationship Specialty Start Date End Date Jorge Luis Gil, ALISA [address] [place] [address] [place] [address] PCP - General Physician Pediatrics Hospitalist 03/23/24 documented as of this encounter
--- OUTSIDE RECORDS SUMMARY | 2024-04-28 00:53 | External Medical Summary | Summary of Care ---
Author Name Unknown Organization [facility] Address [address] [place] [address] Phone [phone] Care Team Providers Care Overcoiler Name Role Phone Jorge Luis Gil PA-C Primary Care Provider [phone] Reason for Visit * Auth/Cert Specialty Diagnoses / Procedures Referred By Denise murillo Referred To Contact Diagnoses Gastric mass Gastric mass [K31.89] Procedures EGD, W/ENDOSCOPIC US ESOPHAGOGASTRODUODENOSCOPY (EGD), FLEXIBLE, TRANSORAL, ENDOSCOPIC ULTRASOUND Sanket Dominguez DO [address] [place] [address] [facility] [address] [place] [phone] Referral ID Status Reason Start Date Expiration Date Visits Re quested Visits Authorized [id number] Encounter Details Date Type Department Care Team (Latest Contact Info) Description 04/17/2024 10:09 AM EDT - 04/17/2024 12:24 PM EDT Hospital Encounter [facility], Endoscopy Room [facility] [address] [place] [phone] Sanket Dominguez DO [address] [place] [address] Various: UGI,UEUS Discharge Disposition: Home - Self Care Allergies Active Allergy Reactions Criticality Noted Date [...] overdose. Seek immediate medical attention. [email or web address]/watch?v=v26c [email or web address] 1 Each 3 04/06/2024 Active Additional Information [...] Sign Reading Time Taken Comments Blood Pressure 116/72 04/17/2024 12:07 PM EDT Pulse 72 04/17/2024 12:07 PM EDT Temperature 36.2 C (97.2 F) 04/17/2024 11:37 AM E DT Respiratory Rate 18 04/17/2024 12:07 PM EDT Oxygen Saturation 100% 04/17/2024 12:07 PM EDT Inhaled Oxygen Concentration - - Weight 88 kg (194 lb) 04/17/2024 10:44 AM EDT Height 172.7 cm (5' 7.99") 04/17/2024 10:44 AM E DT Body Mass Index 29.5 04/17/2024 10:44 AM EDT documented in this encounter Functional [...] No 03/31/2024 documented as of this encounter H&P Notes * Sanket Dominguez, - 04/17/2024 10:54 AM EDT Endoscopy Pre-Procedure Assessment Name: Kamila Bañuelos Date: 04/17/2024 Time: 10:54 AM Procedure(s): Upper GI Endoscopy; with Indication(s) of evaluation or therapy of benign or malignant tumors (eg endoscopic mucosal resection, stent) Endoscopic Ultrasound; with Indication(s) of FNA/FNB of lesions/tissue within or outside the GI tract and evaluation of abnormalities on radiologic study Endoscopy Pre-Procedure Assessment: Prior to the procedure, the patient is identified. The patient's history, medications and allergieshave been reviewed. The patient is competent. The risks and benefits of the proposed procedure and the planned sedation have been discussed with the patient. All questions have been answered and informed consent for the procedure has been obtained. Prior to Admission medications Medication Sig Last Dose Discont. Multi Vitamin Daily Oral Tablet Take by mouth. 04/16/2024 Sucralfate 1 GM Oral Tablet (Carafate) Take 1 Tablet by mouth in the morning and 1 Tablet at noon and 1 Tablet in the evening and 1 Tablet before bedtime. 04/16/2024 Simethicone 80 MG Oral Tablet Chewable (Mylicon) Chew & swallow 2 tablets every 6 hours as needed for Gas. Past Week HYDROcodone-Acetaminophen 7.5-325 MG Oral Tablet Take 1 Tablet by mouth every 4 hours as needed forPain, Severe. Past Month Losartan Potassium 50 MG Oral Tablet (Cozaar) Take 1 Tablet by mouth in the morning. 04/16/2024 Metoprolol Succinate ER 25 MG Oral Tablet Extended Release 24 Hour (toPROL XL) Take 1 Tablet by mouth at bedtime. 04/16/2024 Ondansetron HCl 4 MG Oral Tablet Take 1 Tablet by mouth every 8 hours as needed for Nausea. Past Month Pantoprazole Sodium 40 MG Oral Tablet Delayed Release (Protonix) Take 1 Tablet by mouth in the morning and 1 Tablet in the evening. 04/17/2024 Vitamin D3 50 MCG (1999) Oral Capsule Take 1 Capsule by mouth in the morning. 04/16/2024 Carisoprodol 350 MG Oral Tablet (Soma) Take 1 Tablet by mouth every 6 hours as needed for Muscle spasms for 3 days, THEN 1 Tablet every 8 hours as needed for Muscle spasms for up to 3 days. Naloxone HCl 4 MG/0.1ML Nasal Liquid (Narcan Nasal) Administer 1 spray into 1 nostril for suspectedopioid overdose. Seek immediate medical attention. [email or web address]://[email or web address] [email or web address]/watch?v=[email or web address] Patient not taking: Reported on 04/14/2024 Not Taking Polyethylene Glycol 3350 17 GM Oral Packet (MiraLax) Take 1 Packet by mouth in the morning. Patient not taking: Reported on 04/14/2024 Not Taking Sucralfate 1 GM/10ML Oral Suspension (Carafate) Take 10 mL by mouth in the morning and 10 mL at noon and 10 mL in the evening and 10 mL before bedtime. Patient not taking: Reported on 04/14/2024 Not Taking Zolpidem Tartrate 5 MG Oral Tablet (Ambien) Take 1 Tablet by mouth at bedtime as needed for Sleep. Patient not taking: Reported on 04/13/2024 Not Taking Review of patient's allergies indicates: Allergen Reactions Sulfa Antibiotics Other (Please comment) Pt states she had a reaction as a child BP 112/70 | Pulse 91 | Temp 37.2 C (99 F) (Tympanic) | Resp 18 | Ht 1.727 m (5' 7.99") | Wt 88 kg (194 lb) | SpO2 99% | BMI 29.50 kg/m | BSA 2.05 m Physical Exam: Mental Status Examination: alert and oriented. Airway Examination: normal oropharyngeal airway and neck mobility. Respiratory Examination: clear to auscultation. CV Examination: normal. ASA Grade: III - A patient with severe systemic disease. Abdomen: soft This patient has undergone a preprocedural evaluation. A determination has been made to proceed with the planned procedure under [facility] procedural guidelines and the [facility] Non-Emergent, Elective Medical Services and Treatment Recommendations (published on 02-13-20). The community and hospital prevalence of COVID-19 has been discussed as well as this patient's specific risks associated with SARS-CoV-19 infection. Based upon the clinical acuity and patient-specific care considerations, this procedure is deemed a Tier II - Intermediate acuity treatment or service with either progression or the threat of progressive disease related to the delay in treatment. Not providing the service has the potential for increasing morbidity or mortality. After reviewing the risks and benefits, the patient is deemed in satisfactory condition to undergo the procedure. The anesthesia plan is to use general anesthesia. We have discussed the risks and benefits of upper endoscopy to include bleeding, infection, perforation, discomfort, aspiration and need for follow-up studies. I have discussed the risks and benefitsof EUS to include (not limited to) bleeding, infection, perforation, pain, aspiration, cardiac complications, pancreatitis and insufficient cellularity. Sanket Dominguez DO 04/17/2024 documented in this encounter Procedure Notes * Jorge Luis Gil PA-C - 04/17/2024 11:04 AM EDTAssociated Order(s): UPPER GI ENDOSCOPY [facility] Patient Name: Kamila Bañuelos Procedure Date: 04/17/2024 11:04 AM Date of : 1965 Admit Type: Outpatient Note Status: Finalized Date of : 1965 Admit Type: Outpatient Age: 58 Room: Advanced [facility] Gender: Female Note Status: Finalized Procedure: Upper GI endoscopy Indications: Epigastric abdominal pain, Abnormal PET scan of the GI tract Providers: Sanket Dominguez DO (Doctor) Referring MD: JEAN Marte (Referring MD), Howie Candelaria MD (Referring MD) Medicines: General Anesthesia Complications: No immediate complications. Estimated blood loss: Minimal. Procedure: Pre-Anesthesia Assessment: - Prior to the procedure, a History and Physical was performed, and patient medications, allergies and sensitivities were reviewed. The patient's tolerance of previous anesthesia was reviewed. - The risks and benefits of the procedure and the sedation options and risks were discussed with the patient. All questions were answered and informed consent was obtained. - Patient identification and proposed procedure were verified prior to the procedure by the physician, the nurse and the lapping machine tender. The procedure was verified in the procedure room. - Pre-procedure physical examination revealed no contraindications to sedation. - ASA Grade Assessment: III - A patient with severe systemic disease. - After reviewing the risks and benefits, the patient was deemed in satisfactory condition to undergo the procedure. - The anesthesia plan was to use general anesthesia. - Immediately prior to administration of medications, the patient was re- assessed for adequacy to receive sedatives. - The heart rate, respiratory rate, oxygen saturations, blood pressure, adequacy of pulmonary ventilation, and response to care were monitored throughout the procedure. - The physical status of the patient was re-assessed after the procedure. After obtaining informed consent, the endoscope was passed under direct vision. All instruments were visually inspected immediately before and after removal from the patient to ensure they are fully intact. Throughout the procedure, the patient's blood pressure, pulse, and oxygen saturations were monitored continuously. The [id number] Endoscope([id number]) was introduced through the mouth, and advanced to the third part of duodenum. The upper GI endoscopy was accomplished without difficulty. The patient tolerated the procedure well. Findings & Specimens: The examined esophagus was normal. The Z-line was regular and was found 36 cm from the incisors. The cardia, gastric fundus and gastric body were normal. A large, infiltrative mass with a central ulceration (4 to 5 cm), was found on the lesser curvatureof the gastric antrum extending to the pylorus. Biopsies were taken with a cold forceps for histology.The pathology specimen was placed into Bottle Number 1. Estimated blood loss was minimal. The duodenal bulb and second portion of the duodenum were normal. Impression: - Normal esophagus. - Z-line regular, 36 cm from the incisors. - Normal cardia, gastric fundus and gastric body. 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 Biopsied. - Normal duodenal bulb and second portion of the duodenum. Recommendation: - Use Protonix (pantoprazole) 40 mg PO daily. - Perform an upper endoscopic ultrasound (UEUS) today. - Await pathology results. Sanket Dominguez DO 04/17/2024 11:21:52 AM This report has been signed electronically. * Jorge Luis Gil PA-C - 04/17/2024 11:02 AM EDTAssociated Order(s): UPPER ENDOSCOPIC U/S [facility] Patient Name: Kamila Bañuelos Procedure Date: 04/17/2024 11:02 AM Date of : 1965 Admit Type: Outpatient Note Status: Finalized Date of : 1965 Admit Type: Outpatient Age: 58 Room: Advanced [facility] Gender: Female Note Status: Finalized Procedure: Upper EUS Indications: Abnormal abdominal PET scan, Suspected gastric neoplasm Providers: Sanket Dominguez DO (Doctor) Referring MD: JEAN Mera (Referring MD), Howie Candelaria MD (Referring MD) Medicines: General Anesthesia Complications: No immediate complications. Estimated blood loss: Minimal. Procedure: Pre-Anesthesia Assessment: - Prior to the procedure, a History and Physical was performed, and patient medications, allergies and sensitivities were reviewed. The patient's tolerance of previous anesthesia was reviewed. - The risks and benefits of the procedure and the sedation options and risks were discussed with the patient. All questions were answered and informed consent was obtained. - Patient identification and proposed procedure were verified prior to the procedure by the physician, the nurse and the lapping machine tender. The procedure was verified in the procedure room. - Pre-procedure physical examination revealed no contraindications to sedation. - ASA Grade Assessment: III - A patient with severe systemic disease. - After reviewing the risks and benefits, the patient was deemed in satisfactory condition to undergo the procedure. - The anesthesia plan was to use general anesthesia. - Immediately prior to administration of medications, the patient was re- assessed for adequacy to receive sedatives. - The heart rate, respiratory rate, oxygen saturations, blood pressure, adequacy of pulmonary ventilation, and response to care were monitored throughout the procedure. - The physical status of the patient was re-assessed after the procedure. After obtaining informed consent, the endoscope was passed under direct vision. All instruments were visually inspected immediately before and after removal from the patient to ensure they are fully intact. Throughout the procedure, the patient's blood pressure, pulse, and oxygen saturations were monitored continuously. The Endoscope was introduced through the mouth, and advanced to the antrum of the stomach, I was unable able to traverse the gastric mass to evaluate the duodenum. The upper EUS was accomplished without difficulty. The patient tolerated the procedure well. Findings & Specimens: ENDOSONOGRAPHIC FINDING: : There was no sign of significant endosonographic abnormality in the visualized portion of the liver. Homogeneous parenchyma, no focal pathology and no masses were identified. There was no sign of significant endosonographic abnormality in the pancreatic body, pancreatic tail and main pancreatic duct. The pancreatic duct measured up to 2 mm in diameter. No masses. No lymph nodes were seen during endosonographic examination in the subcarinal mediastinum (level 7), in the gastrohepatic ligament (level 18), in the celiac region (level 20) and in the perigastric region. There was no sign of significant endosonographic abnormality in the left adrenal gland. No adrenal gland enlargement was identified. A hypoechoic irregular mass was identified endosonographically in the antrum of the stomach. The mass measured 40 mm by 30 mm in maximal cross-sectional diameter. The endosonographic borders were poorly-defined. There was sonographic evidence suggesting invasion into the serosa (Layer 5). An intact interface was seen between the mass and the liver, pancreas and celiac trunk suggesting a lack of invasion. Impression: - There was no evidence of [...] malignancy is confirmed. - No specimens collected. Recommendation: - The patient will be observed post-procedure, until all discharge criteria are met. - Mechanical soft diet. - Follow-up with Medical oncology - Surgical oncology referral Sanket Dominguez DO 04/17/2024 11:45:21 AM This report has been signed electronically. documented in this encounter Nursing Notes * Mary Alice Ahumada RN - 04/17/2024 12:21 PM EDT Patient is alert, pain free, and tolerating po fluids prior to discharge. Patient has been visited by Dr. Sanket Dominguez. Patient has received and demonstrates understanding of discharge instructions. Mechanical soft diet reviewed by Dr. Dominguez and education information provided. Patient is transported ambulatory to private auto accompanied by and endo staff. * Mary Alice Ahumada RN - 04/17/2024 12:[address] Dominguez talks with pt and , questions answered. * Mary Alice Ahumada RN - 04/17/2024 11:41 AM EDT Pt awake, denies pain, coughing up clear mucus * Mary Alice Ahumada RN - 04/17/2024 11:37 AM EDT Pt received PACU II sedated. * Sarah Lawrence RN - 04/17/2024 11:32 AM EDT Specimen(s) and location(s) verified with physician post procedure 11:32 AM Sarah Lawrence RN Pt dwight EGD w/ bx and EUS well. Abd soft post proc. No specimens obtained during EUS. To recovery lying on L side w/ HOB elevated. Pre cleaning of scope at the bedside started by field installation technician. * Rafaela Dao RN - 04/17/2024 10:57 AM EDT The following pt discharge instructions reviewed with pt prior to prodedure: No driving today. No alcohol today. No signing of legal documents. Rest as much as possible today and can return to normal activities tomorrow. No operating any heavy equipment today. Diet as tolerated. Pt verbalized understanding. Patient prepped, call bender within reach of patient. documented in this encounter Plan of Treatment Upcoming Encounters Date Type Department Care Team (Late st Contact Info) Description 04/19/2024 3:45 PM EDT Telemedicine General Surgery, [address] [address] Clinic, Emergency General Surgery [address] [place] [id number] Pending Results Name Type Priority Associated Diagnoses Date /Time SURGICAL PATHOLOGY Pathology Routine Gastric mass 04/17/2024 11:22 AM EDT Scheduled Orders Name Type Priority Associated Diagnoses Orde r Schedule SURGICAL PATHOLOGY Pathology Routine Gastric mass Release Upon Ordering for 1 Occurrences starting 04/17/2024, 1 completed Health Maintenance Due Date Last Done Comments [...] Procedure Name Priority Date/Time Associated Diagnosis Comments UPPER GI ENDOSCOPY 04/17/2024 11 :04 AM EDT UPPER ENDOSCOPIC U/S 04/17/2024 11:02 AM EDT documented in this encounter Results * UPPER GI ENDOSCOPY (04/17/2024 11:04 AM EDT) 04/17/2024 11:0 4 AM EDT Narrative Procedure Note Jorge Luis Gil PA-C - 04/17/2024 11:04 AM EDT [facility] Patient Name: Kamila Bañuelos Procedure Date: 04/17/2024 11:04 AM Date of : 1965 Admit Type: Outpatient Note Status:Finalized Date of : 1965 Admit Type: Outpatient Age: 58 Room: [facility] Gender: Female Note Status: Finalized Procedure: Upper GI endoscopy Indications: Epigastric abdominal pain, Abnormal PET scan of theGI tract Providers: Sanket Dominguez DO (Doctor) Referring MD: JEAN Marte (Referring MD), Howie Candelaria MD (Referring MD) Medicines: General Anesthesia Complications: No immediate complications. Estimated blood loss:Minimal. Procedure: Pre-Anesthesia Assessment: - Prior to the procedure, a History and Physicalwas performed, and patient medications, allergies and sensitivities werereviewed. The patient's tolerance of previous anesthesia was reviewed. - The risks and benefits of the procedure and thesedation options and risks were discussed with the patient. All questions wereanswered and informed consent was obtained. - Patient identification and proposed procedurewere verified prior to the procedure by the physician, the nurse and the lapping machine tender.The procedure was verified in the procedure room. - Pre-procedure physical examination revealed nocontraindications to sedation. - ASA Grade Assessment: III - A patient with severesystemic disease. - After reviewing the risks and benefits, thepatient was deemed in satisfactory condition to undergo the procedure. - The anesthesia plan was to use generalanesthesia. - Immediately prior to administration ofmedications, the patient was re-assessed for adequacy to receive sedatives. - The heart rate, respiratory rate, oxygensaturations, blood pressure, adequacy of pulmonary ventilation, and response to care weremonitored throughout the procedure. - The physical status of the patient wasre-assessed after the procedure. After obtaining informed consent, the endoscope waspassed under direct vision. All instruments were visually inspected immediatelybefore and after removal from the patient to ensure they are fully intact. Throughout the procedure, the patient's bloodpressure, pulse, and oxygen saturations were monitored continuously. The [id number]) was introduced through the mouth, and advanced to the third part ofduodenum. The upper GI endoscopy was accomplished without difficulty. The patienttolerated the procedure well. Findings & Specimens: The examined esophagus was normal. The Z-line was regular and was found 36 cm from the incisors. The cardia, gastric fundus and gastric body were normal. A large, infiltrative mass with a central ulceration (4 to 5 cm), wasfound on the lesser curvature of the gastric antrum extending to the pylorus. Biopsies were taken witha cold forceps for histology. The pathology specimen was placed into Bottle Number 1. Estimated bloodloss was minimal. The duodenal bulb and second portion of the duodenum were normal. Impression: - Normal esophagus. - Z-line regular, 36 cm from the incisors. - Normal cardia, gastric fundus and gastric body. - Likely malignant gastric tumor on the lessercurvature of the gastric antrum. Biopsied. - Normal duodenal bulb and second portion of theduodenum. Recommendation: - Use Protonix (pantoprazole) 40 mg PO daily. - Perform an upper endoscopic ultrasound (UEUS)today. - Await pathology results. Sanket Doimnguez DO 04/17/2024 11:21:52 AM This report has been signed electronically. Jorge Luis Gil PA-C GASTRO UPPER * UPPER ENDOSCOPIC U/S (04/17/2024 11:02 AM EDT) 04/17/2024 11:0 2 AM EDT Narrative Procedure Note Jorge Luis Gil PA-Sridhar - 04/17/2024 11:02 AM EDT [facility] Patient Name: Kamila Bañuelos Procedure Date: 04/17/2024 11:02 AM Date of : 1965 Admit Type: Outpatient Note Status:Finalized Date of : 1965 Admit Type: Outpatient Age: 58 Room: Advanced End[facility] Gender: Female Note Status: Finalized Procedure: Upper EUS Indications: Abnormal abdominal PET scan, Suspected gastricneoplasm Providers: Sanket Dominguez DO (Doctor) Referring MD: JEAN Mera (Referring MD), Howie Crooks MD (Referring MD) Medicines: General Anesthesia Complications: No immediate complications. Estimated blood loss:Minimal. Procedure: Pre-Anesthesia Assessment: - Prior to the procedure, a History and Physicalwas performed, and patient medications, allergies and sensitivities werereviewed. The patient's tolerance of previous anesthesia was reviewed. - The risks and benefits of the procedure and thesedation options and risks were discussed with the patient. All questions wereanswered and informed consent was obtained. - Patient identification and proposed procedurewere verified prior to the procedure by the physician, the nurse and the lapping machine tender.The procedure was verified in the procedure room. - Pre-procedure physical examination revealed nocontraindications to sedation. - ASA Grade Assessment: III - A patient with severesystemic disease. - After reviewing the risks and benefits, thepatient was deemed in satisfactory condition to undergo the procedure. - The anesthesia plan was to use generalanesthesia. - Immediately prior to administration ofmedications, the patient was re-assessed for adequacy to receive sedatives. - The heart rate, respiratory rate, oxygensaturations, blood pressure, adequacy of pulmonary ventilation, and response to care weremonitored throughout the procedure. - The physical status of the patient wasre-assessed after the procedure. After obtaining informed consent, the endoscope waspassed under direct vision. All instruments were visually inspected immediatelybefore and after removal from the patient to ensure they are fully intact. Throughout the procedure, the patient's bloodpressure, pulse, and oxygen saturations were monitored continuously. The Endoscope wasintroduced through the mouth, and advanced to the antrum of the stomach, I was unableable to traverse the gastric mass to evaluate the duodenum. The upper EUS wasaccomplished without difficulty. The patient tolerated the procedure well. Findings & Specimens: ENDOSONOGRAPHIC FINDING: : There was no sign of significant endosonographic abnormality in thevisualized portion of the liver. Homogeneous parenchyma, no focal pathology and no masses wereidentified. There was no sign of significant endosonographic abnormality in thepancreatic body, pancreatic tail and main pancreatic duct. The pancreatic duct measured up to 2 mm indiameter. No masses. No lymph nodes were seen during endosonographic examination in thesubcarinal mediastinum (level 7), in the gastrohepatic ligament (level 18), in the celiac region (level20) and in the perigastric region. There was no sign of significant endosonographic abnormality in theleft adrenal gland. No adrenal gland enlargement was identified. A hypoechoic irregular mass was identified endosonographically in theantrum of the stomach. The mass measured 40 mm by 30 mm in maximal cross-sectional diameter. Theendosonographic borders were poorly-defined. There was sonographic evidence suggesting invasioninto the serosa (Layer 5). An intact interface was seen between the mass and the liver, pancreas andceliac trunk suggesting a lack of invasion. Impression: - There was no evidence of significant pathology inthe visualized portion of the liver. - There was no sign of significant pathology in thepancreatic body, pancreatic tail and main pancreatic duct. - Endosonographic images of the left adrenal glandwere unremarkable. - A 40 x 30 mm mass was found in the antrum of thestomach. This was staged T3 (based on invasion into) N0 M0 by endosonographiccriteria. The staging applies if malignancy is confirmed. - No specimens collected. Recommendation: - The patient will be observed post-procedure,until all discharge criteria are met. - Mechanical soft diet. - Follow-up with Medical oncology - Surgical oncology referral Sanket Dominguez DO 04/17/2024 11:45:21 AM This report has been signed electronically. Jorge Luis Gil PA-C GASTRO UPPER documented in this encounter Visit Diagnoses Diagnosis Gastric mass Unspecified disorder of stomach and duodenum documented in this encounter Administered Medications Inactive Administered Medications - up to 3 most recent administrations Medication Order MAR Action Action Date Dose Rate Site Acetaminophen (Tylenol) tab 650 mg 650 mg, Oral, PRN Pain, Mild, Starting on Wed04/17/24 at 1141, Until Wed04/17/24 at 1624, For 1 dose, Maximum of 4 grams (4000 mg) per day., Post-op isolyte-S pH 7.4 infusion Intravenous, at 100 mL/hr, Plasma-LYTE 148, isolyte-S, and isolyte-S pH 7.4 are considered equivalent - including for MAR barcode scanning., CONTINUOUS, Starting on Wed04/17/24 at 1100, Until Wed04/17/24 at 1624, Pre-Op New Bag 04/17/2024 10:58 AM EDT 100 mL/hr documented in this encounter Active and Recently Administered Medications Times are shown in EDT. Continuous Medication Order 04/15/2024 04/16/2024 04/17/2024 isolyte-S pH 7.4 infusion Intravenous, at 100 mL/hr, Plasma-LYTE 148, isolyte-S, and isolyte-S pH 7.4 are considered equivalent - including for MAR barcode scanning., CONTINUOUS, Starting on Wed04/17/24 at 1100, Until Wed04/17/24 at 1624, Pre-Op 1058 (New Bag - Prov ider: Jeni Law RN)1133 (Anes Intra-Op Fluid - Provider: Jacqueline Magdaleno CRNA) PRN Medication Order 04/15/2024 04/16/2024 04/17/2024 Acetaminophen (Tylenol) tab 650 mg 650 mg, Oral, PRN Pain, Mild, Starting on Wed04/17/24 at 1141, Until Wed04/17/24 at 1624, For 1 dose, Maximum of 4 grams (4000 mg) per day., Post-op documented in this encounter Advance Directives * Full Code (Latest Code Status on File) Date Activated Date Inactivated Comments 03/31/2024 9:41 AM 04/06/2024 6:29 PM Question Answer Comments Discussion of Advance Direct marta occurred with: Not Discussed due to patient's condition Care Teams Overcoiler Relationship Specialty Start Date End Date Jorge Luis Gil, ALISA [address] [place] [address] [id number] PCP - General Physician Gill Box Tender 03/23/24 documented as of this encounter
--- OUTSIDE RECORDS SUMMARY | 2024-04-28 00:53 | External Medical Summary | Summary of Care ---
Author Name Unknown Organization [facility] Address [address] [facility] [place] [address] Phone [phone] Care Team Providers Care Preventive Medicine Officer Name Role Phone Jorge Luis Gil PA-C Primary Care Provider [phone] Reason for Referral * Precert (Within 10 days (routine)) - Pending Review Specialty Diagnoses / Procedures Referred By Denise murillo Referred To Contact Radiology Diagnoses Gastric adenocarcinoma (HCC) Procedures IR VENOUS ACCESS MEDIPORT Kenyon Candelaria MD [address] [place] [address] Referral ID Status Reason Start Date Expiration Date V isits Requested Visits Authorized [id number] Pending Review 04/27/2024 999 999 * Evaluate & Treat - Unlimited Visits (Within 10 days (routine)) - Pending Review Specialty Diagnoses / Procedures Referred By Denise murillo Referred To Contact SURGICAL ONCOLOGY / Surgical Oncology Diagnoses Gastric adenocarcinoma (HCC) Kenyon Candelaria MD [address] [place] [address] Referral ID Status Reason Start Date Expiration Date Visits Requested Visits Authorized [id number] Pending Review Specialty Services Required 04/20/2024 999 999 Question Answer Referral Priority Within 10 days (routine) Where should this appointment be scheduled? External - [facility] Yarely Comments 58-year-old female, a case of gastric adenocarcinoma, possible perforation earlier late last year, no evidence of distant metastatic disease. Would like to have surgical Oncology evaluation at [facility]. Thanks. Dr. Kenyon Candelaria Hem/Onc Reason for Visit * Reason Onset Date Comments Advice 04/20/2024 Encounter Details Date Type Department Care Team (Leia st Contact Info) Description 04/20/2024 Telephone Gastroenterology, [facility] [address] [place] [address] Sanket Dominguez DO [address] [place] [address] Advice Allergies Active Allergy Reactions Criticality Noted [...] suspected opioid overdose. Seek immediate medical attention. [email or web address]://[email or web address]/watch?v=v26c [email or web address] 1 Each 3 04/06/2024 Active Additional Information [...] She says that her brother works at [facility] and the she would like to have [...] 11:20 AM EDT Office Visit General Surgery, [place] [address] [place] [address] Taye Harper MD [address] [place] [address] Scheduled Orders Name Type Priority Associated Diagnoses [...] EDT 04/21/2024 9:52 AM EDT Narrative LAB[facility]ATORY [facility] - 04/24/2024 8:21 AM EDT MyGenVar Gastroesophageal Neoplasm Gene Panel, NGS Ordered by: Dr. Sanket Dominguez 04/21/24 QA for slides JCD 04/21/24 Slides to WQ 04/21/24 JCD Per WQ, ordered on A1, 5% tumor 04/24/24 JCD Sanket Dominguez DO LAB BLOOD ORDERABLES LAB[facility]ORY [facility] [address] [place] [address] documented in this encounter Visit Diagnoses Diagnosis Gastric adenocarcinoma (HCC)- Primary Malignant neoplasm of stomach, unspecified site documented in this encounter Advance Directives * Full Code (Latest Code Status on File) Date Activated Date Inactivated Comments 03/31/2024 9:41 AM 04/06/2024 6:29 PM Question Answer Comments Discussion of Advance Direct marta occurred with: Not Discussed due to patient's condition Care Teams Preventive Medicine Officer Relationship Specialty Start Date End Date Jorge Luis Gil, ALISA [address] [place] [address] [place] [id number] PCP - General Physician Patient Insurance Clerk 03/23/24 documented as of this encounter
--- OUTSIDE RECORDS SUMMARY | 2024-04-28 00:53 | External Medical Summary | Summary of Care ---
Author Name Unknown Organization [facility] Address [address] [place] [address] Phone [phone] Care Team Providers Care Route Specialist Name Role Phone Jorge Luis Gil PA-C Primary Care Provider [phone] Encounter Details Date Type Department Care Team (Late st Contact Info) Description 04/18/2024 Documentation Surgical Oncology Cancer Center, [facility] [address] [place] [address] Karo Vegas, RN [address] [place] [address] Allergies Active Allergy Reactions Criticality Noted Date [...] suspected opioid overdose. Seek immediate medical attention. [email or web address]://[email or web address] [email or web address]/watch?v=v26c [email or web address] 1 Each 3 04/06/2024 Active Additional Information [...] as of this encounter Progress Notes * Karo Vegas RN - 04/18/2024 11:55 AM EDT Surgical Oncology Nurse Intake: Gastric mass HPI: 58 y/o female seen by Med onc Dr Candelaria for Large gastric antral mass with possible perforation, biopsy shows glandular dysplasia and atypical proliferation., suspicious for well-differentiated adenocarcinoma PMH: Perforated gastric ulcer (HCC) S/P cardiac cath PSH: DENTAL SURGERY PROCEDURE NEC LAPAROSCOPY DIAGNOSTIC N/A 04/05/2024 LAPAROSCOPY DIAGNOSTIC performed by Ligia Navarro MD at OR [facility] TOOTH ROOT REMOVAL ALLERGIES: Sulfa Family hx of Cancer; None Referred by: Dr. Coles Social Concerns: Nonsmoker no vaping or drugs ocassional alcohol Imaging; CT AP 03/31/2024 PET 03/29/2024 [facility] [place] Dx Proceedures: EUS 04/17/2024 Impression: - There was no evidence of [...] - Surgical oncology referral Sanket Dominguez DO Path: in process Referrals: none Appt offered and accepted: Dr. Harper 04/24/2024 @ 1120 documented in this encounter Plan of Treatment Upcoming Encounters Date Type Department Care Team (Late st Contact Info) Description 04/19/2024 3:45 PM EDT [facility] [address] [place], [place] [id number] Clinic, Emergency General Surgery [facility] [place] [address] 04/24/2024 11:20 AM EDT [facility] [address] [place] [address] Taye Harper MD [address] [place], [place] [id number] Health Maintenance Due Date Last Done Comments [...] shot) (Season Ended) 2024 GFR 04/06/2025 04/06/2024, 05/2 07/2024, 04/04/2024, Additional history exists Diabetes Screening 04/06/2027 [...] Discussed due to patient's condition Care Teams Route Specialist Relationship Specialty Start Date End Date Jorge Luis Gil, ALISA [address] [place] [phone] PCP - General Physician Gift Officer 03/23/24 documented as of this encounter
--- OUTSIDE RECORDS SUMMARY | 2024-04-28 00:54 | External Medical Summary ---
Author Name Unknown Address Unknown Organization K01:LABORATORY [facility] - [address] [place] [address] Laboratory Report Ordering Provider Test Date Status IRIS PRESCOTT 04/13/2024 13:01:56 Final Observation Date Value Abnormality Reference (Units ) Status Vitamin B12 04/13/2024 13:01:56 >2000 Above high normal 232-1245 (pg/mL) Final Performing Location [facility] - [address] [place] [address]
--- OUTSIDE RECORDS SUMMARY | 2024-04-28 00:54 | External Medical Summary | Summary of Care ---
Author Name Unknown Organization [facility] Address [address] [facility] [place] [address] Phone [phone] Care Team Providers Care Bead Machine Operator Name Role Phone Jorge Luis Gil PA-C Primary Care Provider [phone] Encounter Details Date Type Department Care Team (Late st Contact Info) Description 04/13/2024 Telephone Hematology/Oncology [facility] [address] [place] [address] Howie Candelaria MD [address] [place] [address] Allergies Active Allergy Reactions Criticality Noted Date Comments Sulfa Antibiotics Other (Please comment) 2023 Pt states she had a reaction as a child documented as of this encounter (statuses as of 04/13/2024) Medications Medication Sig Dispensed Refills Start Date [...] and 1 Tablet in the evening. Active HYDROcodone-Acetam inophen 7.5-325 MG Oral Tablet Take 1 Tablet [...] suspected opioid overdose. Seek immediate medical attention. 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 Cancer related pain 03/31/2024 documented as of this encounter (statuses as of 04/13/2024) Social History Tobacco Use Types Packs/Day Years [...] Telephone Encounter - Roberta Yo OSA - 04/13/2024 1:39 PM EDT UPPER GI ENDOSCOPY [[id number]] (Order [id number] Gastric adenocarcinoma (HCC) [C16.9] - Primary documented in this encounter Plan of Treatment Upcoming Encounters Date Type Department Care Team (Late st Contact Info) Description 04/19/2024 3:45 PM EDT [facility]icine [facility] [address] [place] [address] Clinic, Emergency General Surgery [facility][note 3] [place] [address] Health Maintenance Due Date Last Done Comments [...] Discussed due to patient's condition Care Teams Bead Machine Operator Relationship Specialty Start Date End Date Jorge Luis Gil PA-C [address] [place] [address] PCP - General Physician Brazer Helper Induction 03/23/24 documented as of this encounter
--- OUTSIDE RECORDS SUMMARY | 2024-04-28 00:54 | External Medical Summary | Summary of Care ---
Author Name Unknown Organization [facility] Address [address] [facility] [place] [address] Phone [phone] Care Team Providers Care Railways Assistant Name Role Phone Jorge Luis Gil PA-C Primary Care Provider [phone] Reason for Referral * Evaluate & Treat - Unlimited Visits (Within 10 days (routine)) - Pending Review Specialty Diagnoses / Procedures Referred By Denise murillo Referred To Contact SURGICAL ONCOLOGY / Surgical Oncology Diagnoses Gastric mass Sanket Dominguez DO [address] [place] [address] Referral ID Status Reason Start Date Expiration Date Visits Requested Visits Authorized [id number] Pending Review Specialty Services Required 04/17/2024 999 999 Question Answer Referral Priority Within 10 days (routine) Where should this appointment be scheduled? Aretha Comments Eval for an antral mass Reason for Visit * Reason Onset Date Comments Advice 04/17/2024 Encounter Details Date Type Department Care Team (Late st Contact Info) Description 04/17/2024 Telephone Gastroenterology, [facility] [address] [place] [address] Sanket Dominguez DO [address] [place] [address] Advice Allergies Active Allergy Reactions Criticality Noted Date Comments Sulfa Antibiotics Other (Please comment) 2023 Pt states she had a reaction as a child documented as of this encounter (statuses as of 04/17/2024) Medications Medication Sig Dispensed Refills Start Date End Date Status Losartan Potassium 50 MG Oral Tablet (Cozaar) Take 1 Tablet by mouth in the morning. Suspended Metoprolol Succinate ER 25 MG Oral Tablet Extended Release 24 Hour (toPROL XL) Take 1 Tablet by mouth at bedtime. Suspended Pantoprazole Sodium 40 MG Oral Tablet Delayed Release (Protonix) Take 1 Tablet by mouth in the morning and 1 Tablet in the evening. Suspended HYDROcodone-Acet aminophen 7.5-325 MG Oral Tablet Take 1 Tablet by mouth every 4 hours as needed for Pain, Severe. Suspended Polyethylene Glycol 3350 17 GM Oral Packet (MiraLax) Take 1 Packet by mouth in the morning. Suspended Ondansetron HCl 4 MG Oral Tablet Take 1 Tablet by mouth every 8 hours as needed for Nausea. Suspended Sucralfate 1 GM/10ML Oral Suspension (Carafate) Take 10 mL by mouth in the morning and 10 mL at noon and 10 mL in the evening and 10 mL before bedtime. Suspended Zolpidem Tartrate 5 MG Oral Tablet (Ambien) Take 1 Tablet by mouth at bedtime as needed for Sleep. Suspended Vitamin D3 50 MCG (2000 UT) Oral Capsule Take 1 Capsule by mouth in the morning. Suspended Naloxone HCl 4 MG/0.1ML Nasal Liquid (Narcan Nasal) Administer 1 spray into 1 nostril for suspected opioid overdose. Seek immediate medical attention. https://www.youtu [email or web address]/watch?v=v2 [email or web address] 1 Each 3 04/06/2024 Suspended Additional Information Patient not taking.Reported on 04/14/2024 Simethicone 80 MG Oral Tablet Chewable (Mylicon) Chew & swallow 2 tablets every 6 hours as needed for Gas. 40 Tablet 04/06/2024 Suspended Additional Information Sucralfate 1 GM Oral Tablet (Carafate) Take 1 Tablet by mouth in the morning and 1 Tablet at noon and 1 Tablet in the evening and 1 Tablet before bedtime. 120 Tablet 04/09/2024 05/09/2024 Suspended Additional Information Multi Vitamin Daily Oral Tablet Take by mouth. 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 Cancer related pain 03/31/2024 documented as of this encounter (statuses as of 04/17/2024) Social History Tobacco Use Types Packs/Day Years [...] 04/19/2024 3:45 PM EDT Telemedicine General Surgery, [place] [address] [place] [address] Clinic, Emergency General Surgery [address] [place] [address] Scheduled Procedures Name Priority Associated Diagnoses Date/Ti me ESOPHAGOGASTRODUODENOSCOPY ( EGD), FLEXIBLE, TRANSORAL, ENDOSCOPIC ULTRASOUND Gastric mass 04/17/2024 11:07 AM EDT Scheduled Referrals Name Type Priority [...] Primary Unspecified disorder of stomach and duodenum documented in this encounter Advance Directives * Full Code (Latest Code Status on File) Date Activated Date Inactivated Comments 03/31/2024 9:41 AM 04/06/2024 6:29 PM Question Answer Comments Discussion of Advance Direct marta occurred with: Not Discussed due to patient's condition Care Teams Railways Assistant Relationship Specialty Start Date End Date Jorge Luis Gil, PANikkiC [address] [place] [id number] PCP - General Physician Cloud Automation Tester 03/23/24 documented as of this encounter
--- OUTSIDE RECORDS SUMMARY | 2024-04-28 00:54 | External Medical Summary ---
Author Name Unknown Address Unknown Organization K01:[facility] - [address] [place] [address] Laboratory Report Ordering Provider Test Date Status IRIS PRESCOTT 04/13/2024 13:02:33 Final Observation Date Value Abnormality Reference (Units ) Status CEA 04/13/2024 13:02:33 1.3 <=5.2 (ng/ mL) Final Performing Location [facility] - [address] [place] [address]
--- OUTSIDE RECORDS SUMMARY | 2024-04-28 00:54 | External Medical Summary | Summary of Care ---
Author Name Unknown Organization [facility] Address [address] [facility] [place] [address] Phone [phone] Care Team Providers Care Heel Breaster Name Role Phone Jorge Luis Gil PA-C Primary Care Provider [phone] [phone] Reason for Visit * Reason Comments NEW PATIENT * Opinion/Recommendation - Change # of Visits to 1 (Within 10 days (routine)) - Pending Review Specialty Diagnoses / Procedures Referred By Denise murillo Referred To Contact Hematology/Oncology / Hematology Oncology Diagnoses Malignant neoplasm of stomach (HCC) Other diseases of stomach and duodenum Walter Morgan, [address] [facility] [address] [place] [address] Referral ID Status Reason Start Date Expiration Date Visits Requested Visits Authorized [id number] Pending Review Specialty Services Required 03/23/2024 1 1 Encounter Details Date Type Department Care Team (Latest Contact Info) Description 04/13/2024 12:15 PM EDT Office Visit Hematology/Oncology [place] [address] [place] [id number] Howie Candelaria MD [address] [place] [address] Gastric adenocarcinoma (HCC)* Allergies Active Allergy Reactions [...] suspected opioid overdose. Seek immediate medical attention. [email or web address]?[email or web address] 1 Each 3 04/06/2024 Active Simethicone 80 [...] Sign Reading Time Taken Comments Blood Pressure 134/83 04/13/2024 11:53 AM EDT Pulse 110 04/13/2024 11:53 AM EDT Temperature 36.2 C (97.2 F) 04/13/2024 11:53 AM E DT Respiratory Rate 17 04/13/2024 11:53 AM EDT Oxygen Saturation 95% 04/13/2024 11:53 AM EDT Inhaled Oxygen Concentration - - Weight 88.2 kg (194 lb 8 oz) 04/13/2024 11:53 AM EDT Height - - Body Mass Index 29.57 03/31/2024 9:35 AM EDT documented in this encounter Functional [...] as of this encounter Progress Notes * Howie Candelaria MD - 04/13/2024 12:15 PM EDT Hematology/Oncology Outpatient Consult Note Aretha Hame[address] [place] [address] [facility], [place] [address] KAMILA BAÑUELOS MR # [id number] :1965 58-year-old female, REASON FOR CONSULTATION: Consultation for Kamila Bañuelos requested by Jorge Luis Gil PA-C for evaluation and discussion of treatment options for suspected gastric cancer. Date of consultation:04/13/2024 DIAGNOSIS: Large gastric antral mass with possible perforation, biopsy shows glandular dysplasia and atypical proliferation., suspicious for well-differentiated adenocarcinoma But needs additional tissue for the confirmation. -CPS 2, MSI stable. CURRENT TREATMENT: - Planning further diagnostic workup. DIAGNOSTIC WORKUP: She had upper abdominal pain, ultrasound of the gallbladder done on 09/24/2023 at [facility] showed no gallstone, hypoechoic focus anterior to the pancreas measuring about 7.[address] scan of the abdomen pelvis on 09/24/2023: - Significant thickening of the gastric antrum and pylorus moderate perigastric inflammation extending into the mesentery and about 4 cm multiloculated rim enhancing collection. Stomach, antrum, "abnormal mucosa of gastric antrum" (biopsy, 10/18/2023 Done at [facility]): - Moderate, focal, predominantly chronic antritis is seen. - Mild, focal atrophy is seen, but intestinal metaplasia is not present. - An immunohistochemical stain for the Helicobacter pylori organisms is negative Biopsy from the gastric antral mass on 03/07/2024: -atypical glandular proliferation most consistent with well-differentiated infiltrative adenocarcinoma. -CPS--> 2 Slides reviewed at [facility], they suggest glandular dysplasia and atypical proliferation., suspicious for well-differentiated adenocarcinoma but they do not think It is sufficient evidence to support a diagnosis of carcinoma. - MSI stable HER2 Vilma negative. CT scan of the abdomen pelvis on 03/31/2024: -no extraluminal contrast identified -stable lobular collection anterior and inferior to the antrum measuring 6.3 x 5 x 5 cm -segmental thickening of the transverse colon adjacent to the collection, likely reactive -irregular enteral thickening -no liver lesion. -no intra-abdominal lymphadenopathy noted. She had normal liver function test including alkaline phosphatase earlier but alkaline phosphatase increased to around 210 as of 03/31/2024. She was transferred at [facility] for possible perforation when she would some increasing abdominal pain. Diagnostic laparoscopy with peritoneal washings, bilateral TAP (Transversus abdominis plane) block (04/05/2024) Path showed benign findings. OTHER IMPORTANT HISTORY: -Hypertension. - could not tolerate oral iron replacement therapy. -no smoking. INTERVAL HISTORY: She has come the clinic for the initial evaluation, accompanied by her in the office. She says that previously noted abdominal pain has improved, nowadays she takes Tylenol p.r.n. basis, no nausea no vomiting, fair appetite, weight loss by about 50 lb in the last 6 months noted, current weight around 194 lb, no fever, not on antibiotic treatment at this time but she says she was treated with IV antibiotic when she was hospital on 2 occasions. No leg edema. Denies any tingling and numbness of extremities. No joint pain Family history: No any kind of cancer diagnosis in the family members. REVIEW OF SYSTEMS: GENERAL: Weight loss noted, slightly weak and tired, no fever or chills.. SKIN: No skin rash, no bruising. HEAD: No new headache, no dizziness. EYES: No recent change in the vision, no diplopia, EARS: No earache no tinnitus, NOSE: No epistaxis, No nasal discharge or stuffiness, MOUTH: No sores, no dysphagia, no hoarseness of voice, NECK: No lumps, No swelling in thyroid area. No stiffness. PULMONARY: No cough, No shortness of breath, no hemoptysis, no chest pain, No wheezing. CARDIOVASCULAR: No anginal chest pain, no PND, no orthopnea. No palpitation, no leg edema. No syncope. GASTROINTESTINAL: Abdominal pain intermittently but It has been improved., no nausea or vomiting. No diarrhea, No constipation. No blood in stool or black tarry stools. No abdominal distention. UROLOGIC: No burning urination. No hematuria. MUSCULOSKELETAL: No joint pain, No joint swelling, no muscle weakness. HEMATOLOGIC: No anemia, no bleeding disorder, No bruising. NEUROLOGIC: No seizures, no focal weakness, no speech difficulty, No memory disturbances. No tingling or numbness of the extremities. PSYCHIATRIC: No depression. No anxiety. No psychosis. Past Medical History: Diagnosis Date Perforated gastric ulcer (HCC) S/P cardiac cath Past Surgical History: Procedure Laterality Date DENTAL SURGERY PROCEDURE NEC LAPAROSCOPY DIAGNOSTIC N/A 04/05/2024 LAPAROSCOPY DIAGNOSTIC performed by Ligia Navarro MD at [facility] TOOTH ROOT REMOVAL Current Outpatient Medications Medication [...] morning and 1 Tablet in the evening. HYDROcodone-Acetaminophen 7.5-325 MG Oral Tablet Take 1 Tablet by mouth every 4 hours as needed forPain, Severe. Polyethylene Glycol 3350 17 GM Oral Packet (MiraLax) Take 1 Packet by mouth in the morning. Ondansetron HCl 4 MG Oral Tablet Take 1 Tablet by mouth every 8 hours as needed for Nausea. Sucralfate 1 GM/10ML Oral Suspension (Carafate) Take 10 mL by mouth in the morning and 10 mL at noon and 10 mL in the evening and 10 mL before bedtime. Zolpidem Tartrate 5 MG Oral Tablet (Ambien) Take 1 Tablet by mouth at bedtime as needed for Sleep. Vitamin D3 50 MCG (2000 UT) Oral Capsule Take 1 Capsule by mouth in the morning. Naloxone HCl 4 MG/0.1ML Nasal Liquid (Narcan Nasal) Administer 1 spray into 1 nostril for suspectedopioid overdose. Seek immediate medical attention. https://www.youtube.com/watch?v=[email or web address] 1 Each 3 Simethicone 80 MG Oral Tablet Chewable (Mylicon) Chew & swallow 2 tablets every 6 hours as needed for Gas. 40 Tablet 0 Sucralfate 1 GM Oral Tablet (Carafate) Take 1 Tablet by mouth in the morning and 1 Tablet at noon and 1 Tablet in the evening and 1 Tablet before bedtime. 120 Tablet 0 No current facility-administered medications for this visit. Family History Problem Relation Name Age of [...] on file Housing Stability: Not on file On Exam: BP 134/83 (BP Site: Left Arm, BP Position: Sitting, BP Cuff Size: Regular) | Pulse 110 | Temp 36.2 C (97.2 F) (Tympanic) | Resp 17 | Wt 88.2 kg (194 lb 8 oz) | SpO2 95% | BMI 29.57 kg/m | BSA 2.06 m Constitutional: Patient is alert, cooperative and oriented x 3. Well built female, Patient is in noacute distress. HEENT: No icterus, no pallor, Throat and pharynx normal. Sinuses are non-tender. Neck: Supple and without lymphadenopathy or masses. No JVD. No Palpable supraclavicular lymph nodes. Lungs: Clear to auscultation. Bilateral symmetric air entry. No wheezing or rhonchi. Cardiovascular: Normal heart sounds, no murmurs.Regular rate and rhythm. Abdomen: Ill-defined soft tissue mass noted in the epigastric region,no hepatomegaly, no splenomegaly. Bowel sounds are normal. Neurological: No gross focal neurological deficit; walks with a normal gait. Extremities: No finger clubbing, No cyanosis. No leg edema. Skin:: No skin rash. SPINE: No spinal or paraspinal tenderness. LABS: Blood workup done on 04/06/2024: - WBC 87670, H&H of 10.3/33, Platelet count of [id number] -BUN/Creat: 5/0.5, IMAGING: As described above. Peritoneal washing ( 04/05/2024 ) --> benign findings. ASSESSMENT AND PLAN: 58-year- old female, who has gastric antral mass and large perigastric inflammation, possible perforation perhaps occurred earlier in September of 2023, biopsy done at that time showed benign findings, repeat biopsy from the gastric antrum done in late February 2024 showed some dysplastic changes, suspicious for well-differentiated adenocarcinoma. Recently she was admitted at [facility] for increasing abdominal pain, possible perforation, treated conservatively, underwent laparoscopic evaluation, peritoneal washing negative for the malignancy. No abdominal pain has improved, she just takes Tylenol as needed. Weight loss by about 40- 50 lb noted. I reviewed her blood workup, mild anemia noted, could not tolerate oral iron therapy, would like tocheck B12, folic acid Ferritin, iron profile. Will also check CEA level today. Earlier she had slightly elevated alkaline phosphatase, would like to repeat LFT. She would another upper GI endoscopy and EUS and have another biopsy for further diagnostic workup.She would like to have It done in [facility]. She says that if she need surgical intervention, she would like to be seen by surgical oncologist at [facility]. Her brother's best friend is a surgical oncologist over there. I talked to her about information outlined on NCCN website, discussed with them regarding the role of chemotherapy treatment that can be considered before or after the surgery. We also talked about two drug versus 3 drug protocol. She will need port for chemotherapy after having definitive diagnosis. Will send NGS checkup from the biopsy specimen. Thanks for the consultation Dr. Howie Candelaria Hem/Onc (This note was completed using the dictation program Fluency Direct. As such, there may be misspellings word substitutions, or other variations that should not change the essence of the clinical content of this encounter note. If there is need for further clarification, please direct questions to the provider listed above.) documented in this encounter Nursing Notes * Loli Thorpe MED ASSIST - 04/13/2024 11:59 AM EDT Patient identifed by name and birthdate Do you have any concerns about pain management for today's visit? Yes. Patient instructed to discuss pain concerns with provider during the visit today Living Will or Advance Directive for Health Care as noted on the problem list. [facility] is a way you can talk to your provider on line through e-mail. Would you like to sign up? I can activate it for you? ALREADY ACTIVE Filed Vitals: 04/13/24 1153 BP: 134/83 Pulse: 110 Resp: 17 Temp: 36.2 C (97.2 F) TempSrc: Tympanic SpO2: 95% Weight: 88.2 kg (194 lb 8 oz) Patient was instructed to not get up on the exam table/exam chair until directed and assisted by their provider; patient is to remain seated in the chair/ wheelchair/ exam table/ exam chair for fall prevention and safety reasons. Patient is aware to have assistance to step down off exam table/exam chair with personnel. Patient voiced full comprehension of instructions. documented in this encounter Plan of Treatment Upcoming Encounters Date Type Department Care Team (Late st Contact Info) Description 04/19/2024 3:45 PM EDT Telemedicine General Surgery[address] [place] [address] Clinic, Emergency General Surgery [address] [place] [address] Pending Results Name Type Priority Associated Diagnoses Date /Time VITAMIN B12 Lab Routine Gastric adenocarcinoma (HCC) 04/13/2024 1:01 PM EDT FOLIC ACID Lab Routine Gastric adenocarcinoma (HCC) 04/13/2024 1:01 PM EDT IRON SCREEN, INCLUDING TIBC Lab Routine Gastric adenocarcinoma (HCC) 04/13/2024 1:01 PM EDT FERRITIN Lab Routine Gastric adenocarcinoma (HCC) 04/13/2024 1:01 PM EDT CEA Lab Routine Gastric adenocarcinoma (HCC) 04/13/2024 1:02 PM EDT Scheduled Orders Name Type Priority Associated Diagnoses Orde r Schedule UPPER GI ENDOSCOPY Gastro Upper Routine Gastric adenocarcinoma (HCC) Ordered: 04/13/2024 Health Maintenance Due Date Last Done Comments [...] Procedure Name Priority Date/Time Associated Diagnosis Comments HEPATIC FUNCTION PANEL STAT 04/13/2024 1:01 PM EDT Gastric adenocarcinoma (HCC) documented in this encounter Results * (ABNORMAL) HEPATIC FUNCTION PANEL (04/13/2024 1:01 PM EDT) Albumin 3.9 3.8 - 5.0 g/dL 04/13/2024 1:28 PM EDT [facility] 56 AST 41(H) 10 - 35 U/L 04/13/2024 1:28 PM EDT [address] Alkaline Phosphatase 164(H) 35 - 130 U/L 04/13/2024 1:28 PM EDT [facility] 56- ALT 47(H) 10 - 35 U/L 04/13/2024 1:28 PM EDT [facility] 56- Bilirubin, Total 0.4 <=1.2 mg/dL 04/13/2024 1:28 PM EDT [facility] 56- Bilirubin, Direct <0.2 0.0 - 0.3 mg/dL 04/13/2024 1:28 PM EDT [facility] 56- Protein 8.6(H) 6.0 - 8.3 g/dL 04/13/2024 1:28 PM EDT [facility] 56- Blood Venous blood specimen / Unknown Venipuncture / Unknown 04/13/2024 1:01 PM EDT 04/13/2024 1:02 PM EDT Howie Candelaria MD LAB BLOOD ORDERABLES [facility] [address] [place] [address] documented in this encounter Visit Diagnoses Diagnosis Gastric adenocarcinoma (HCC)- Primary Malignant neoplasm of stomach, unspecified site documented in this encounter Advance Directives * Full Code (Latest Code Status on File) Date Activated Date Inactivated Comments 03/31/2024 9:41 AM 04/06/2024 6:29 PM Question Answer Comments Discussion of Advance Direct marta occurred with: Not Discussed due to patient's condition Care Teams Heel Breaster Relationship Specialty Start Date End Date Jorge Luis Gil, ALISA [address] [place] [address] [place] [address] PCP - General Physician Dentist 03/23/24 documented as of this encounter
--- OUTSIDE RECORDS SUMMARY | 2024-04-28 00:54 | External Medical Summary | Summary of Care ---
Author Name Unknown Organization [facility] Address [address] [place] [address] Phone [phone] Care Team Providers Care Drafting Teacher Name Role Phone Jorge Luis Gil PA-C Primary Care Provider [phone] [phone] Reason for Visit * Reason Onset Date Comments Scheduling 04/07/2024 Encounter Details Date Type Department Care Team (Late st Contact Info) Description 04/07/2024 Telephone General Surgery, [place] [address] [place], [place] [id number] Services, Scheduling [address] [place] [address] Scheduling Allergies Active Allergy Reactions Criticality Noted Date Comments Sulfa Antibiotics Other (Please comment) 2023 Pt states she had a reaction as a child documented as of this encounter (statuses as of 04/12/2024) Medications Medication Sig Dispensed Refills Start Date [...] Capsule by mouth in the morning. Active Carisoprodol 350 MG Oral Tablet (Soma) Take 1 Tablet by mouth every 6 hours as needed for Muscle spasms for 3 days, THEN 1 Tablet every 8 hours as needed for Muscle spasms for up to 3 days. 15 Tablet 04/06/2024 04/12/2024 Active Naloxone HCl 4 MG/0.1ML Nasal Liquid (Narcan Nasal) Administer 1 spray into 1 nostril for suspected opioid overdose. Seek immediate medical attention. https://www.ACE Portal.com/watch?v=v26c Wka5VuI 1 Each 3 04/06/2024 Active Simethicone 80 MG Oral Tablet Chewable (Mylicon) Chew & swallow 2 tablets every 6 hours as needed for Gas. 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 Will need referral to GI for the EGD ifthat is the case. Andrew PEREZ RN Bariatric and Foregut Nurse Coordinator * Telephone Encounter - Larissa De La Cruz OSA - 04/11/2024 10:16 AM EDT Pt calling back to follow up on scheduling her upper endoscopy. Please call pt to advise. * Telephone Encounter - Andrew Trammell RN - 04/10/2024 11:32 [address] EDT Will message Dr Mejia to discuss if GI in [place] should be doing the endoscopy for more definitive diagnosis as this patient is not known to [facility] service. Andrew PEREZ RN Bariatric and Foregut Nurse Coordinator * Telephone Encounter - Marilou Patel OSA - 04/07/2024 5:07 PM EDT Please call patient to schedule her upper endoscopy procedure. documented in this encounter Plan of Treatment Upcoming Encounters Date Type Department Care Team (Late st Contact Info) Description 04/13/2024 12:15 PM EDT Office Visit Hematology/Oncology [employer] [address] [facility] [place] [phone] Howie Candelaria MD [address] [facility] [place] [address] 04/19/2024 3:45 PM EDT Telemedicine [address] [address] Clinic, Emergency General Surgery [address] [place], [place] [id number] Health Maintenance Due Date Last Done Comments [...] Discussed due to patient's condition Care Teams Drafting Teacher Relationship Specialty Start Date End Date Jorge Luis Gil, ALISA [address] [place] [address] [place] [address] PCP - General Physician Screed Operator 03/23/24 documented as of this encounter
--- OUTSIDE RECORDS SUMMARY | 2024-04-28 00:54 | External Medical Summary | Summary of Care ---
Author Name Unknown Organization [facility] Address [address] [facility] [place] [address] Phone [phone] Care Team Providers Care Revenue Enforcement Collection Agent Name Role Phone Jorge Luis Gil PA-C Primary Care Provider [phone] [phone] Reason for Visit * Reason Onset Date Comments Advice 04/13/2024 Encounter Details Date Type Department Care Team (Late st Contact Info) Description 04/13/2024 Telephone Hematology/Oncology [facility] [place] [address] [facility] [place] [phone] Howie Candelaria MD [address] [facility] [place] [address] Advice Allergies Active Allergy Reactions Criticality Noted Date Comments Sulfa Antibiotics Other (Please comment) 2023 Pt states she had a reaction as a child documented as of this encounter (statuses as of 04/14/2024) Medications Medication Sig Dispensed Refills Start Date [...] suspected opioid overdose. Seek immediate medical attention. 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 Working on schedule to get her a time. Will call pt back. * Telephone Encounter - Sanket Dominguez DO - 04/14/2024 10:26 AM EDT Can we add the patient for EUS / EGD next week, perhaps on Wednesday or Wednesday at . Perhaps one of my general endo cases could be moved to another provider. Indication: Gastric mass * Telephone Encounter - Alyssa Lopez OSA - 04/13/2024 4:51 PM EDT Pt had EGD 03/07/[address] Stephenson. Please review ov note from Dr. Candelaria today. Thank you * Telephone Encounter - Roberta Yo OSA - 04/13/2024 1:39 PM EDT UPPER GI ENDOSCOPY [[id number]] (Order [id number] Gastric adenocarcinoma (HCC) [C16.9] - Primary documented in this encounter Plan of Treatment Upcoming Encounters Date Type Department Care Team (Late st Contact Info) Description 04/19/2024 3:45 PM EDT Telemedicine General Surgery, [place] [address] [place] [address] Clinic, Emergency General Surgery [facility] [place] [address] Health Maintenance Due Date Last Done Comments [...] Discussed due to patient's condition Care Teams Revenue Enforcement Collection Agent Relationship Specialty Start Date End Date Jorge Luis Gil, TRANGC [address] [place] [address] PCP - General Physician Pot Press Operator 03/23/24 documented as of this encounter
--- OUTSIDE RECORDS SUMMARY | 2024-04-28 00:54 | External Medical Summary ---
Author Name Unknown Address Unknown Organization K01:LABORATORY [facility] - [address] [place] [address] Laboratory Report Ordering Provider Test Date Status IRIS PRESCOTT 04/13/2024 13:01:56 Final Observation Date Value Abnormality Reference (Units ) Status Iron 04/13/2024 13:01:56 29 Below low normal 33-151 (ug/dL) Final Iron-binding capacity 04/13/2024 13:01:56 257 250-425 (ug/dL) Final Transferrin Sat % 04/13/2024 13:01:56 11 Below low normal 15-55 (%) Final Performing Location LABORATORY [facility] - [address] [place] [address]
--- OUTSIDE RECORDS SUMMARY | 2024-04-28 00:54 | External Medical Summary | Summary of Care ---
Author Name Unknown Organization [facility] Address [address] [place] [address] Phone [phone] Care Team Providers Care Glass Products Inspector Name Role Phone Jorge Luis Gil PA-C Primary Care Provider [phone] [phone] Reason for Visit * Reason Comments Outpatient Testing Encounter Details Date Type Department Care Team (Late st Contact Info) Description 04/13/2024 1:20 PM EDT Laboratory Laboratory [facility] [address] [place] [phone] [facility] [address] [place] [address] Arrived Allergies Active Allergy Reactions Criticality Noted Date [...] suspected opioid overdose. Seek immediate medical attention. [email or web address]://[email or web address] [email or web address]/watch?v=[email or web address] 1 Each 3 04/06/2024 Active Simethicone 80 [...] No 03/31/2024 documented as of this encounter Plan of Treatment Upcoming Encounters Date Type Department Care Team (Late st Contact Info) Description 04/19/2024 3:45 PM EDT [facility] [address] [place] [address] Clinic, Emergency General Surgery [address] [place] [address] Health Maintenance Due Date Last Done Comments [...] Discussed due to patient's condition Care Teams Glass Products Inspector Relationship Specialty Start Date End Date Jorge Luis Gil, PANikkiC [address] [place] [address] PCP - General Physician Graphic Design Teacher 03/23/24 documented as of this encounter
--- OUTSIDE RECORDS SUMMARY | 2024-04-28 00:54 | External Medical Summary | Summary of Care ---
Author Name Unknown Organization [facility] Address [address] [facility] [place] [address] Phone [phone] Care Team Providers Care Sucker Machine Operator Name Role Phone Jorge Luis Gil PA-C Primary Care Provider [phone] [phone] Reason for Visit * Reason Onset Date Comments Advice 04/13/2024 Encounter Details Date Type Department Care Team (Late st Contact Info) Description 04/13/2024 Telephone Hematology/Oncology [facility] [place] [address] [facility] [place] [address] Howie Candelaria MD [address] [facility] [place] [address] Advice Allergies Active Allergy Reactions Criticality Noted [...] suspected opioid overdose. Seek immediate medical attention. https://www.Tigris [employer]aceuticals.com/watch?v=v2 [email or web address] 1 Each 3 04/06/2024 Active Simethicone 80 [...] 04/14/2024 10:38 AM EDT Spoke to pt, cyndi'd EUS 04/17/[address] Dominguez at . 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 documented in this encounter Plan of Treatment Upcoming Encounters Date Type Department Care Team (Latest Contact Info) Description 4 11:15 AM EDT Hospital Encounter ENDO [facility], Endoscopy Room [facility] [address] [place] [address] Sanket Dominguez, DO [address] [place] [address] 4 11:15 AM EDT - 4 12:00 PM EDT Surgery ENDO [facility], Endoscopy Room [facility] [address] [place] [address] Sanket Dominguez, DO [address] [place] [address] ESOPHAGOGASTRODUODENOSCOPY (EGD), FLEXIBLE, TRANSORAL, ENDOSCOPIC ULTRASOUND 4 3:45 PM EDT [facility] General [address] [address] Clinic, Emergency General Surgery [address] [place] [address] Scheduled Procedures Name Priority Associated Diagnoses Date/Ti me ESOPHAGOGASTRODUODENOSCOPY ( EGD), FLEXIBLE, TRANSORAL, ENDOSCOPIC ULTRASOUND Gastric mass 04/17/2024 11:15 AM EDT Health Maintenance Due Date Last [...] Discussed due to patient's condition Care Teams Sucker Machine Operator Relationship Specialty Start Date End Date Jorge Luis Gil, PANikkiC [address] [place] [address] PCP - General Physician Coil Winder Repair 03/23/24 documented as of this encounter
--- OUTSIDE RECORDS SUMMARY | 2024-04-28 00:54 | External Medical Summary | Summary of Care ---
Author Name Unknown Organization [facility] Address [address] [facility] [place] [place] [address] Phone [phone] Care Team Providers Care Fish And Wildlife Scientific Aid Name Role Phone Jorge Luis Gil PA-C Primary Care Provider +1 [phone] Reason for Visit * Reason Onset Date Comments Advice 04/13/2024 Encounter Details Date Type Department Care Team (Late st Contact Info) Description 04/13/2024 Telephone Hematology/Oncology [facility] [place] [address] [facility] [place] [address] Howie Candelaria MD [address] [facility] [place] [address] Advice Allergies Active Allergy Reactions Criticality Noted [...] suspected opioid overdose. Seek immediate medical attention. 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 documented in this encounter Plan of Treatment Upcoming Encounters Date Type Department Care Team (Late st Contact Info) Description 04/19/2024 3:45 PM EDT Telemedicine General Surgery, [place] [address] [place] [address] Clinic, Emergency General Surgery [address] [place] [address] Health Maintenance Due Date Last Done Comments [...] Discussed due to patient's condition Care Teams Fish And Wildlife Scientific Aid Relationship Specialty Start Date End Date Jorge Luis Gil, ALISA [address] [place] [address] [place] [address] PCP - General Physician Excel Analyst 03/23/24 documented as of this encounter
--- OUTSIDE RECORDS SUMMARY | 2024-04-28 00:54 | External Medical Summary ---
Author Name Unknown Address Unknown Organization K01:LABORATORY [facility] [place] - [address] [place] [address] Laboratory Report Ordering Provider Test Date Status IRIS PRESCOTT 04/13/2024 13:01:56 Final Observation Date Value Abnormality Reference (Units ) Status Folic Acid 04/13/2024 13:01:56 12.8 >4.5 (ng/ mL) Final Performing Location LAB[facility]ORY [facility] - [address] [place] [address]
--- OUTSIDE RECORDS SUMMARY | 2024-04-28 00:54 | External Medical Summary | Summary of Care ---
Author Name Unknown Organization [facility] Address [address] [facility] [place] [address] Phone [phone] Care Team Providers Care Event Decorator Name Role Phone Jorge Luis Gil PA-C Primary Care Provider +1 [phone] Encounter Details Date Type Department Care Team (Late st Contact Info) Description 04/13/2024 Telephone Hematology/Oncology [facility] [address] [place] [address] Howie Candelaria MD [address] [place] [address] Allergies Active Allergy Reactions Criticality Noted Date [...] suspected opioid overdose. Seek immediate medical attention. 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 documented in this encounter Plan of Treatment Upcoming Encounters Date Type Department Care Team (Late st Contact Info) Description 04/19/2024 3:45 PM EDT Telemedicine General Surgery, [place] [address] [place] [address] Clinic, Emergency General Surgery [address] [place] [address] Health Maintenance Due Date Last Done Comments [...] Discussed due to patient's condition Care Teams Event Decorator Relationship Specialty Start Date End Date Jorge Luis Gil PA-C [address] [place] [address] [place] [address] PCP - General Physician System Support Technician 03/23/24 documented as of this encounter
--- OUTSIDE RECORDS SUMMARY | 2024-04-28 00:54 | External Medical Summary ---
Author Name Unknown Address Unknown Organization K01:[facility] [place] [address] [place] [address] Laboratory Report Ordering Provider Test Date Status IRIS PRESCOTT 04/13/2024 13:01:56 Final Observation Date Value Abnormality Reference (Units ) Status Ferritin 04/13/2024 13:01:56 1591 Above high normal 13 -150 (ng/mL) Final Postmenopausal women have hi gher ferritin levels than pre-menopausal women. The above reference interval is based on pre-menopausal women. Performing Location LABORATORY [facility] - [address] [place] [address]
--- OUTSIDE RECORDS SUMMARY | 2024-04-28 00:54 | External Medical Summary ---
Author Name Unknown Address Unknown Organization K09:[facility] [place] [address] Laboratory Report Ordering Provider Test Date Status IRIS PRESCOTT 04/13/2024 13:01:56 Final Observation Date Value Abnormality Reference (Units ) Status Albumin 04/13/2024 13:01:56 3.9 3.8-5.0 (g/dL) Final AST (Aspartate aminotransferase) 04/13/2024 13:01:56 41 Above high normal 10-35 (U/L) Final Alk Phos 04/13/2024 13:01:56 164 Above high normal 35-130 (U/L) Final ALT (Alanine aminotransferase) 04/13/2024 13:01:56 47 Above high normal 10-35 (U/L) Final Bilirubin, Total 04/13/2024 13:01:56 0.4 <=1.2 (mg/dL) Final Bilirubin, Direct 04/13/2024 13:01:56 <0.2 0.0-0.3 (mg/dL) Final Protein 04/13/2024 13:01:56 8.6 Above high normal 6.0-8.3 (g/dL) Final Performing Location [facility] [place] [address]
--- OUTSIDE RECORDS SUMMARY | 2024-04-28 00:55 | External Medical Summary | Summary of Care ---
Author Name Unknown Organization [facility] Address [address] [place] [address] Phone [phone] Care Team Providers Care Php Developer Name Role Phone Jorge Luis Gil PA-C Primary Care Provider [phone] [phone] Reason for Visit * Reason Onset Date Comments Scheduling 04/07/2024 Encounter Details Date Type Department Care Team (Late st Contact Info) Description 04/07/2024 Telephone General Surgery, [place] [address] [place], [place] [phone] Services, Scheduling [address] [place] [address] Scheduling Allergies Active Allergy Reactions Criticality Noted Date Comments Sulfa Antibiotics Other (Please comment) 2023 Pt states she had a reaction as a child documented as of this encounter (statuses as of 04/07/2024) Medications Medication Sig Dispensed Refills Start Date [...] suspected opioid overdose. Seek immediate medical attention. https://www.[employer].com/watch?v=v26c Aaw7ZlJ 1 Each 3 04/06/2024 Active Simethicone 80 MG Oral Tablet Chewable (Mylicon) Chew & swallow 2 tablets every 6 hours as needed for Gas. 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 documented in this encounter Plan of Treatment Upcoming Encounters Date Type Department Care Team (Late st Contact Info) Description 04/13/2024 12:15 PM EDT Office Visit Hematology/Oncology [facility] [address] [place] [phone] Howie Candelaria MD 200 [place] [address] 04/19/2024 3:45 PM EDT [facility] [address] [place] [address] Clinic, Emergency General Surgery [address] [place] [address] Health Maintenance Due Date Last Done Comments [...] Discussed due to patient's condition Care Teams Php Developer Relationship Specialty Start Date End Date Jorge Luis Gil, PANikkiC [address] [place] [address] [place] [address] PCP - General Physician Dental Front Office Assistant 03/23/24 documented as of this encounter
--- OUTSIDE RECORDS SUMMARY | 2024-04-28 00:55 | External Medical Summary | Summary of Care ---
Author Name Unknown Organization [facility] Address [address] [place] [address] Phone [phone] Care Team Providers Care Laborer Wood Preserving Plant Name Role Phone Jorge Luis Gil PA-C Primary Care Provider [phone] [phone] Reason for Visit * Reason Onset Date Comments Medication Question 04/07/2024 Med Request 04/07/2024 Encounter Details Date Type Department Care Team (Late st Contact Info) Description 04/07/2024 Telephone [facility] General Surgery [address] [place] [address] Ligia Navarro MD [address] [place] [address] Medication Question; Med Request Allergies Active Allergy Reactions Criticality Noted Date [...] suspected opioid overdose. Seek immediate medical attention. https://www.Rhomania.com/watch?v=v26c Tpa4TgG 1 Each 3 04/06/2024 Active Simethicone 80 [...] encounter Miscellaneous Notes * Telephone Encounter - Daniel Hinds, digital tech - 04/07/2024 8:12 AM EDT Patient calling to follow up after being discharged from the hospital yesterday. Patient was advised to continue taking Sucralfate but her insurance does not cover the medication. Patient wants to know if an alternative medication can be prescribed that is covered by her insurance. And if script can be sent to her pharmacy urgently so she can begin taking medication. Patients preferred pharmacys is [facility]. Also, patient wanted to know how much OTC Tylenol she is able to take. Patient can be reached at [phone]. Thank you, Daniel Hinds Interventionist [facility] ([facility] (formerly Telepharmacy) 04/07/2024,8:16 AM Patient called. Questions addressed. Rishi Renee MD 04/07/2024 10:52 AM documented in this encounter Plan of Treatment Upcoming Encounters Date Type Department Care Team (Late st Contact Info) Description 04/13/2024 12:15 PM EDT Office Visit Hematology/Oncology [facility] [place] [address] [place] [address] Howie Candelaria MD 200 [place] [address] 04/19/2024 3:45 PM EDT Telemedicine General Surgery, [place] [address] [place] [address] Clinic, Emergency General Surgery [address] [place] [address] Health Maintenance Due Date Last Done Comments [...] Discussed due to patient's condition Care Teams Laborer Wood Preserving Plant Relationship Specialty Start Date End Date Jorge Luis Gil PA-C [address] [place] [address] [place] [address] PCP - General Physician Leadership Program Internship 03/23/24 documented as of this encounter
--- OUTSIDE RECORDS SUMMARY | 2024-04-28 00:55 | External Medical Summary | Summary of Care ---
Author Name Unknown Organization [facility] Address [address] [place] [address] Phone [phone] Care Team Providers Care Duco Polisher Name Role Phone Jorge Luis Gil PA-C Primary Care Provider [phone] [phone] Reason for Visit * Reason Onset Date Comments Scheduling 04/07/2024 Encounter Details Date Type Department Care Team (Late st Contact Info) Description 04/07/2024 Telephone General Surgery, [place] [address] [place], [place] [phone] Services, Scheduling [address] [place] [address] Scheduling Allergies Active Allergy Reactions Criticality Noted Date Comments Sulfa Antibiotics Other (Please comment) 2023 Pt states she had a reaction as a child documented as of this encounter (statuses as of 04/11/2024) Medications Medication Sig Dispensed Refills Start Date [...] suspected opioid overdose. Seek immediate medical attention. https://www.Upstart.com/watch?v=v26c Lfy0OvV 1 Each 3 04/06/2024 Active Simethicone 80 MG Oral Tablet Chewable (Mylicon) Chew & swallow 2 tablets every 6 hours as needed for Gas. 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 Please call pt to advise. * Telephone Encounter - Andrew Trammell RN - 04/10/2024 11:32 AM EDT Will message Dr Mejia to discuss if GI in [place] should be doing the endoscopy for more definitive diagnosis as this patient is not known to [facility] service. Andrew PEREZ, card hand and Foregut Nurse Coordinator * Telephone Encounter - Marilou Patel OSA - 04/07/2024 5:07 PM EDT Please call patient to schedule her upper endoscopy procedure. documented in this encounter Plan of Treatment Upcoming Encounters Date Type Department Care Team (Late st Contact Info) Description 04/13/2024 12:15 PM EDT Office Visit Hematology/Oncology [facility] [place] [address] [place] [phone] Howie Candelaria MD 200 [place] [address] 04/19/2024 3:45 PM EDT Telemedicine General Surgery, [place] [address] [place] [address] Clinic, Emergency General Surgery [address] [place] [address] Health Maintenance Due Date Last Done Comments [...] Discussed due to patient's condition Care Teams Duco Polisher Relationship Specialty Start Date End Date Jorge Luis Gil, ALISA [address] [place] [address] [place] [address] PCP - General Physician Integrated Circuit Design Engineer 03/23/24 documented as of this encounter
--- OUTSIDE RECORDS SUMMARY | 2024-04-28 00:55 | External Medical Summary | Summary of Care ---
Author Name Unknown Organization [facility] Address [address] [place] [address] Phone [phone] Care Team Providers Care Suede Cleaner Name Role Phone Jorge Luis Gil PA-C Primary Care Provider [phone] [phone] Reason for Visit * Reason Onset Date Comments Scheduling 04/07/2024 Encounter Details Date Type Department Care Team (Late st Contact Info) Description 04/07/2024 Telephone General Surgery, [place] [address] [place], [place] [phone] Services, Scheduling [address] [place] [address] Scheduling Allergies Active Allergy Reactions Criticality Noted [...] suspected opioid overdose. Seek immediate medical attention. https://www.CFX BATTERY.com/watch?v=v26c Dws8DnD 1 Each 3 04/06/2024 Active Simethicone 80 [...] Dr Mejia to discuss if GI in [place] should be doing the endoscopy for more definitive diagnosis as this patient is not known to [facility] service. Andrew PEREZ, senior product development engineer and Foregut Nurse Coordinator * Telephone Encounter - Marilou Patel OSA - 04/07/2024 5:07 PM EDT Please call patient to schedule her upper endoscopy procedure. documented in this encounter Plan of Treatment Upcoming Encounters Date Type Department Care Team (Late st Contact Info) Description 04/13/2024 12:15 PM EDT Office Visit Hematology/Oncology [facility] [place] [address] [place] [phone] Howie Candelaria MD [address] [place] [address] 04/19/2024 3:45 PM EDT Telemedicine General Surgery, [place] [address] [place] [address] Clinic, Emergency General Surgery [address] [place] [address] Health Maintenance Due Date Last Done Comments [...] Discussed due to patient's condition Care Teams Suede Cleaner Relationship Specialty Start Date End Date Jorge Luis Gil, ALISA [address] [place] [address] [place] [address] PCP - General Physician Paint Mixer Machine 03/23/24 documented as of this encounter
--- OUTSIDE RECORDS SUMMARY | 2024-04-28 00:55 | External Medical Summary | Summary of Care ---
Author Name Unknown Organization [facility] Address [address] [place] [address] Phone [phone] Care Team Providers Care Official Court Reporter Name Role Phone Jorge Luis Gil PA-C Primary Care Provider [phone] [phone] Reason for Visit * Reason Onset Date Comments Scheduling 04/07/2024 Encounter Details Date Type Department Care Team (Late st Contact Info) Description 04/07/2024 Telephone General Surgery, [place] [address] [place], [place] [phone] Services, Scheduling [address] [place] [address] Scheduling Allergies Active Allergy Reactions Criticality Noted Date Comments Sulfa Antibiotics Other (Please comment) 2023 Pt states she had a reaction as a child documented as of this encounter (statuses as of 04/10/2024) Medications Medication Sig Dispensed Refills Start Date [...] suspected opioid overdose. Seek immediate medical attention. https://www.Metavana.com/watch?v=v26c Cqz2RzL 1 Each 3 04/06/2024 Active Simethicone 80 MG Oral Tablet Chewable (Mylicon) Chew & swallow 2 tablets every 6 hours as needed for Gas. 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 Cancer related pain 03/31/2024 documented as of this encounter (statuses as of 04/10/2024) Social History Tobacco Use Types Packs/Day Years [...] 04/13/2024 12:15 PM EDT Office Visit Hematology/Oncology [facility] [address] [place] [phone] Howie Candelaria MD [address] [place] [address] 04/19/2024 3:45 PM EDT [facility] [address] [place] [address] Clinic, Emergency General Surgery [address] [place] [address] Health Maintenance Due Date Last Done Comments [...] Discussed due to patient's condition Care Teams Official Court Reporter Relationship Specialty Start Date End Date Jorge Luis Gil, PANikkiC [address] [place] [address] [place] [address] PCP - General Physician Rate Engineer 03/23/24 documented as of this encounter
--- OUTSIDE RECORDS SUMMARY | 2024-04-28 00:55 | External Medical Summary | Summary of Care ---
Author Name Unknown Organization [facility] Address [address] [place] [address] Phone [phone] Care Team Providers Care Ballistic Technician Name Role Phone Jorge Luis Gil PA-C Primary Care Provider +1 [phone] Reason for Visit * Reason Onset Date Comments Scheduling 04/07/2024 Encounter Details Date Type Department Care Team (Late st Contact Info) Description 04/07/2024 Telephone General Surgery, [place] [address] [place], [place] [phone] Services, Scheduling [address] [place] [address] Scheduling Allergies Active Allergy Reactions Criticality Noted [...] suspected opioid overdose. Seek immediate medical attention. https://www.Creativity Software.com/watch?v=v26c Jnz7BnO 1 Each 3 04/06/2024 Active Simethicone 80 [...] Dr Mejia to discuss if GI in [place] should be doing the endoscopy for more definitive diagnosis as this patient is not known to [facility] service. Andrew PEREZ, orthopaedic nurse and Foregut Nurse Coordinator * Telephone Encounter - Marilou Patel OSA - 04/07/2024 5:07 PM EDT Please call patient to schedule her upper endoscopy procedure. documented in this encounter Plan of Treatment Upcoming Encounters Date Type Department Care Team (Late st Contact Info) Description 04/13/2024 12:15 PM EDT Office Visit Hematology/Oncology [facility] [place] [address] [place] [address] Howie Candelaria MD [address] [place] [address] 04/19/2024 3:45 PM EDT Telemedicine General [address] [address] Clinic, Emergency General Surgery [facility] [place] [address] Health Maintenance Due Date Last Done Comments [...] Discussed due to patient's condition Care Teams Ballistic Technician Relationship Specialty Start Date End Date Jorge Luis Gil PA-C [address] [place] [address] [place] [address] PCP - General Physician Dip Guider Stoves 03/23/24 documented as of this encounter
--- OUTSIDE RECORDS SUMMARY | 2024-04-28 00:55 | External Medical Summary | Summary of Care ---
Author Name Unknown Organization [facility] Address [address] [place] [address] Phone [phone] Care Team Providers Care Sas Clinical Programmer Name Role Phone Jorge Luis Gil PA-C Primary Care Provider [phone] Encounter Details Date Type Department Care Team (Late st Contact Info) Description 04/09/2024 Telephone [facility] V[facility] Surgery [address] [place] [address] Alyssa Gonsalez MD [address] [place] [address] Allergies Active Allergy Reactions Criticality Noted Date Comments Sulfa Antibiotics Other (Please comment) 2023 Pt states she had a reaction as a child documented as of this encounter (statuses as of 04/09/2024) Medications Medication Sig Dispensed Refills Start Date [...] suspected opioid overdose. Seek immediate medical attention. [email or web address] 1 Each 3 04/06/2024 Active Simethicone 80 MG Oral Tablet Chewable (Mylicon) Chew & swallow 2 tablets every 6 hours as needed for Gas. 40 Tablet 04/06/2024 Active Sucralfate 1 GM Oral Tablet (Carafate) Take 1 Tablet by mouth in the morning and 1 Tablet at noon and 1 Tablet in the evening and 1 Tablet before bedtime. 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 [address] [place] [address] Clinic, Emergency General Surgery [address] [place] [address] Health Maintenance Due Date Last Done Comments [...] Discussed due to patient's condition Care Teams Sas Clinical Programmer Relationship Specialty Start Date End Date Jorge Luis Gil, TRANGC [address] [place] [address] [place] [address] PCP - General Physician Django Developer 03/23/24 documented as of this encounter
--- OUTSIDE RECORDS SUMMARY | 2024-04-28 00:56 | External Medical Summary ---
Author Name Unknown Address Unknown Organization [id number]:[facility]ORY [facility] [place] - [facility] [address] [place] [address] Laboratory Report Ordering Provider Test Date Status DIVYA DRAKE 04/05/2024 03:31:00 Final Observation Date Value Abnormality Reference (Units ) Status BUN 04/05/2024 03:31:00 6 6-20 (mg/dL) Final Creatinine 04/05/2024 03:31:00 0.6 0.5-1.0 (mg/dL) Final Glomerular filtration rate/1.73 sq M.predicted [Volume Rate/Area] in Serum, Plasma or Blood by Creatinine-based formula (CKD-EPI) 04/05/2024 03:31:00 >90 >=60 (mL/min) Final eGFR is calculated based on the CKD-EPI 2020 equation Sodium 04/05/2024 03:31:00 136 135-146 (m mol/L) Final Potassium 04/05/2024 03:31:00 3.5 3.5-5.1 (m mol/L) Final Cl 04/05/2024 03:31:00 102 98-107 (mm ol/L) Final CO2 04/05/2024 03:31:00 24 22-32 (mmo l/L) Final Anion gap 04/05/2024 03:31:00 10 7-15 (mmol /L) Final Glucose 04/05/2024 03:31:00 110 70-120 (mg /dL) Final Calcium 04/05/2024 03:31:00 8.5 8.4-10.2 ( mg/dL) Final Performing Location [facility] [place] - [facility] [address] [place] [address]
--- OUTSIDE RECORDS SUMMARY | 2024-04-28 00:56 | External Medical Summary ---
Author Name Unknown Address Unknown Organization [id number]:[facility]ATORY [facility] - [address] [place] [address] Laboratory Report Ordering Provider Test Date Status DIVYA DRAKE 04/03/2024 06:12:00 Final Observation Date Value Abnormality Reference (Units ) Status Phosphate 04/03/2024 06:12:00 2.9 2.5-4.8 (m g/dL) Final Performing Location [facility]ATORY [facility] - [address] [place] [address]
--- OUTSIDE RECORDS SUMMARY | 2024-04-28 00:56 | External Medical Summary ---
Author Name Unknown Address Unknown Organization [id number]:[facility] - [address] [place] [address] Laboratory Report Ordering Provider Test Date Status DIVYA DRAKE 04/05/2024 03:31:00 Final Observation Date Value Abnormality Reference (Units ) Status Phosphate 04/05/2024 03:31:00 3.4 2.5-4.8 (m g/dL) Final Performing Location [facility] - [address] [place] [address]
--- OUTSIDE RECORDS SUMMARY | 2024-04-28 00:56 | External Medical Summary | Summary of Care ---
Author Name Unknown Organization [facility] Address [address] [place] [address] Phone [phone] Care Team Providers Care Director Operating Room Name Role Phone Jorge Luis Gil PA-C Primary Care Provider [phone] Reason for Referral * Ancillary Services (Within 10 days (routine)) - Pending Review Specialty Diagnoses / Procedures Referred By Denise murillo Referred To Contact General Surgery Diagnoses Gastric mass Bayron Mejia MD [address] [place] [address] Referral ID Status Reason Start Date Expiration Date Visits Requested Visits Authorized [id number] Pending Review Ancillary Services Required 04/06/[phone] Question Answer Referral Priority Within 10 days (routine) Where should this appointment be scheduled? [facility] What is the reason for the patient to be seen? Comments Discharge Order Reason for Visit * Auth/Cert Specialty Diagnoses / Procedures Referred By Denise murillo Referred To Contact Diagnoses Perforated stomach (HCC) Gastric perforation (HCC) Stomach Perforation Juanito Wallis MD [address] [place] [address] [facility] [address] [place] [address] Referral ID Status Reason Start Date Expiration Date Visits Re quested Visits Authorized [id number] Encounter Details Date Type Department Care Team (Latest Contact Info) Description 03/31/2024 9:27 AM EDT - 04/06/2024 2:25 PM EDT Hospital Encounter [facility] 6th Floor [address], [place] [id number] Horace Yu MD [address], [place] [id number] Ligia Navarro MD [address] [place] [address] Juanito Wallis MD [address], [place] [id number] Discharge Disposition: Home - Self Care Allergies [...] suspected opioid overdose. Seek immediate medical attention. [email or web address] Each 3 04/06/2024 Active Simethicone 80 [...] Date Smoking Tobacco: Never Smokeless Tobacco: Never Tobacco Cessation:Counseling Given: Not Answered Alcohol Use Standard Drinks/Week Comments Not Currently [...] Sign Reading Time Taken Comments Blood Pressure 137/73 04/06/2024 12:37 PM EDT Pulse 62 04/06/2024 12:37 PM EDT Temperature 36.5 C (97.7 F) 04/06/2024 12:37 PM E DT Respiratory Rate 16 04/06/2024 12:37 PM EDT Oxygen Saturation 98% 04/06/2024 12:37 PM EDT Inhaled Oxygen Concentration - - Weight 91.6 kg (202 lb) 03/31/2024 9:35 AM EDT Height 172.7 cm (5' 8") 03/31/2024 9:35 AM EDT Body Mass Index 30.71 03/31/2024 9:35 AM EDT documented in this [...] No 03/31/2024 documented as of this encounter Discharge Summaries * Bayron Mejia MD - 04/06/2024 2:25 PM EDT Images from the original note were not included. 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 Other Significant Diagnoses: none CONDITION ON DISCHARGE: stable Cognition: normal DISPOSITION ON DISCHARGE: home FOLLOW-UP: Future Appointments Appt Date/Time Provider Department 04/13/2024 12:15 PM Howie Candelaria MD Hematology/Oncology [facility] 04/19/2024 3:45 PM [facility] testing already scheduled: None Outpatient testing that needs to be arranged: None Inpatient test results pending: None MEDICATIONS ON DISCHARGE: MEDICATION UPDATES AT DISCHARGE START taking these medications INSTRUCTIONS Carisoprodol 350 MG Tablet Commonly known as: Soma Start taking on: April 06, 2024 Take 1 Tablet by mouth every 6 hours as needed for Muscle spasms for 3 days, THEN 1 Tablet every 8 hours as needed for Muscle spasms for up to 3 days. GNP Gas Relief 80 MG chewable tablet Generic drug: Simethicone Chew & swallow 2 tablets every 6 hours as needed for Gas. naloxone 4 MG/0.1ML Liqd Commonly known as: Narcan Nasal Administer 1 spray into 1 nostril for suspected opioid overdose. Seek immediate medical attention. [email or web address] CONTINUE taking these medications INSTRUCTIONS HYDROcodone-Acetaminophen 7.5-325 MG per tablet Take 1 Tablet by mouth every 4 hours as needed for Pain, Severe. losartan 50 MG Tablet Commonly known as: Cozaar Take 1 Tablet by mouth in the morning. metoprolol succinate XL 25 MG Tb24 Commonly known as: toPROL XL Take 1 Tablet by mouth at bedtime. MiraLax packet Generic drug: Polyethylene Glycol 3350 Take 1 Packet by mouth in the morning. pantoprazole 40 MG Tbec Commonly known as: Protonix Take 1 Tablet by mouth in the morning and 1 Tablet in the evening. Sucralfate 1 GM/10ML suspension Commonly known as: Carafate Take 10 mL by mouth in the morning and 10 mL at noon and 10 mL in the evening and 10 mL before bedtime. Vitamin D3 50 MCG (2000 UT) Capsule Take 1 Capsule by mouth in the morning. Zofran 4 MG Tablet Generic drug: ondansetron Take 1 Tablet by mouth every 8 hours as needed for Nausea. zolpidem 5 MG Tablet Commonly known as: Ambien Take 1 Tablet by mouth at bedtime as needed for Sleep. ALLERGIES: Sulfa antibiotics INSTRUCTIONS: Activity: No strenuous activity for 2-4 weeks Diet: normal diet Code Status: Full Code Indwelling devices: none ADMISSION HISTORY & PHYSICAL EXAM (focused): HISTORY AND PHYSICAL EXAMINATION - Trauma/Emergency Surgery [facility]-[address] [address] Name: Kamila Bañuelos Location: [facility] H678/A Date: 03/31/2024 Time: 10:38 AM PRESENTING PROBLEM: concern for gastric perforation HISTORY OF PRESENT ILLNESS: Kamila Bañuelos is a 58 year old, female with Past medical history of hypertension, cardiac catheterization ( 07/31) presenting as a transfer from [facility] for concerns of gastric perforation in the setting of newly diagnosed gastric adenocarcinoma. Patient states over the last 3 months she has had 3episodes of acute epigastric abdominal pain with radiation down the right flank to the back. Patient states her 1st episode resulted in the 11 and 12 day admission to [facility]. Patient states that her most recent pain started roughly 5 days ago. Patient received PET scan yesterday at [facility] for oncologic workup. States that the pain worsened following the PET scan necessitating evaluation and now in the ED. CT scan at that time revealed concern for gastric antrum perforation. Labs were within normal limits. The patient could not tolerate NG tube placement at OSH. Patient was subsequently transferred [facility] for surgical evaluation. At bedside, patient states epigastric pain has significantly improved. Patient denies any nausea orvomiting. Patient expressed concerns over having NG tube placed at bedside but is understanding of the necessity. Patient denies any other concerns at this time. HOSPITAL PROBLEM LIST: Principal Problem: Abdominal pain, epigastric (POA: Unknown) Active Problems: Gastric adenocarcinoma (HCC) (POA: Unknown) HTN (hypertension) (POA: Unknown) POA = Present On Admission PAST MEDICAL HISTORY: Past Medical History No past medical history on file. PAST SURGICAL HISTORY: Past Surgical History No past surgical history on file. FAMILY HISTORY: Family History No family history on file. SOCIAL HISTORY: Social History Social History Tobacco Use Smoking status: Never Smokeless tobacco: Never Vaping Use Vaping status: Never Used Substance Use Topics Alcohol use: Not Currently Alcohol/week: 2.0 standard drinks of alcohol Types: 2 1.5 oz of liquor per week Comment: quit Nov 2021, only will have a drink on special occassions Drug use: Never CURRENT HOSPITAL MEDICATIONS: Note that completed medications (per the MAR) continue to display for 24 hours. Ordered medicationsto be given in the future also display. Current Facility-Administered Medications Medication Dose Route Frequency Provider Acetaminophen (Ofirmev) inj 1,000 mg 1,000 mg Intravenous Q6H Bayron Mejia MD [START ON 04/01/2024] Enoxaparin (Lovenox) inj 40 mg 40 mg Subcutaneous Daily(AM) Bayron Mejia MD HYDROmorphone (Dilaudid) inj 0.2 mg 0.2 mg IV Push Q4H PRN Bayron Mejia MD HYDROmorphone (Dilaudid) inj 0.5 mg 0.5 mg IV Push Q2H PRN Bayron Mejia MD naloxone (Narcan) 0.4 MG/ML inj 0.08 mg 0.08 mg IV Push PRN Bayron Mejia MD ondansetron ODT (Zofran) tab 4 mg 4 mg On Tongue Q6H PRN Bayron Mejia MD Or ondansetron (Zofran) inj 4 mg 4 mg IV Push Q6H PRN Bayron Mejia MD Pantoprazole (Protonix) inj 40 mg 40 mg IV Push Daily(AM) Bayron Mejia MD sodium chloride 0.9 % flush peripheral nikole 3 mL 3 mL IV Push Q Shift Bayron Mejia MD ALLERGIES: Allergies Sulfa antibiotics ROS: Negative except as noted above PHYSICAL EXAMINATION: Most Recent Vital Signs: BP: 135 mmHg/59 mmHg (03/31/24931) Pulse: 87 (03/31/24931) Temp: 36.72 C (03/31/24931) Temp Summary: Temp Min: 36.7 C (98.1 F) Max: 36.7 C (98.1 F) SpO2: 96 % (03/31/24931) O2 flow rate: Supplemental O2 Delivery: Room Air, None (03/31/24931) Constitutional: no acute distress HEENT: normal: normocephalic, atraumatic; no masses, tenderness, or adenopathy Eyes: sclera and conjunctiva normal CV: normal rate, normal rhythm Chest: normal respiratory effort Abdomen: soft, mildly tender to palpation diffusely, mildly distended , no rebound or guarding Skin: warm, dry, intact: HOSPITAL COURSE (focused): Kamila Bañuelos is a 58 year old year old female with a reportedly new diagnosis of gastric adenocarcinoma, admitted for concerns of gastric perforation. Initial scans with PO contrast did not reveal any active extravasation and the patient remained hemodynamically stable with a benign exam. No urgent surgical intervention was required. On HD1, an NGT was placed to allow for bowel rest. Heme/Onc was consulted and evaluated the patient, providing recommendations. After review of the patient's records from OSH, the heme/onc team recommended a tissue biopsy before additional interventions. NGT was removed on HD4. Patient underwent diagnostic laparoscopy with peritoneal washings by Dr. Navarro on 04/05/2024. Patient tolerated the procedure well. There were no intraoperative complications. On POD # 0 patient was started on a regular diet, which was tolerated without issue. Incentive spirometry and ambulation were encouraged. Patient recovered well, endorsed bowel function, and tolerated a regular diet. She was continued onzosyn and diflucan until discharge. The patient ambulated and pain was controlled with medications.Patient was deemed appropriate for discharge on 1 Day Post-Op. At the time of discharge, patient's vital signs remained stable, no signs of active bleeding, afebrile. Discharge instructions were explained to the patient, and the patient verbalized understanding.Additionally, the patient was instructed to follow-up with No current attending provider for patient encounter. or someone else from the team as indicated on the discharge instructions. Patient was discharged home in good condition with stable vitals, and with prescriptions as noted in this document. Please see the official hospital records for additional details regarding this patient's in-housecare. Transfusion of blood products while inpatient: 0 units ICU stay: 0 days Postop operative adverse events: None Operations & Procedures: diagnostic laparoscopy with peritoneal washings, bilateral TAP block Complications: none significant SIGNIFICANT RESULTS: Vital Signs (last recorded): Most Recent Systolic BP: 137 mmHg (04/06/24 1237) Most Recent Diastolic BP: 73 mmHg (04/06/24 1237) Pulse: 62 (04/06/24 1237) Resp: 16 (04/06/24 1237) Most Recent Temperature: 36.5 C (04/06/24 1237) Weight: 91.6 kg (202 lb) (03/31/24 0935) SpO2: 98 % (04/06/24 1237) O2 flow rate: 0 L/MIN (04/06/24 0618) Labs: CHEMISTRY: BUN, Creatinine, GFR Estimated, Sodium, Potassium, Chloride, Carbon Dioxide, Glucose, Calcium (see below for most recent value): Lab Results Component Value Date/Time BUN 5 (L) 04/06/2024 05:02 AM CREAT 0.5 04/06/2024 05:02 AM NA 143 04/06/2024 05:02 AM POTASSIUM 4.2 04/06/2024 05:02 AM CL 106 04/06/2024 05:02 AM CO2 25 04/06/2024 05:02 AM CA 9.1 04/06/2024 05:02 AM BLOOD COUNT: WBC, Hgb, Platelets (see below for most recent value): Lab Results Component Value Date/Time WBC 14.59 (H) 04/06/2024 05:02 AM HGB 10.3 (L) 04/06/2024 05:02 AM PLT 355 04/06/2024 05:02 AM Imaging (focused): No imaging results in the last 24 hours CONSULTS ORDERED: ONCOLOGY CONSULT IP REFERRING PHYSICIAN: Ref: GA DOLL[[id number]] [address] [place] [facility] [address] (office) [phone] (fax) PRIMARY CARE PROVIDER: PCP: Jorge Luis Gli PA-C [address] [place] [address] (office) [phone] (fax) Note: To contact a physician responsible for this patients hospital care, please call [employer] [phone]. documented in this encounter Discharge Instructions * Discharge Instr - AVS* Lolis Cabrera CRNP - 04/04/2024 7:11 AM EDT Discharge Date: 04/06/2024 Check your Patient Education Brochure for further information. You may call Dr. Yu of the department of General Surgery at [phone] during business hours for any questions or test results. For after-hours emergencies, call [phone] and have the provider sports cartoonist paged. The information below provides you with the instructions and the list of medications you need to betaking following discharge from the hospital. If you have any questions, please ask before leaving.Please carry this letter with you when you see your doctor in the clinic. If you have questions, you can reach us at the numbers above. Brief summary of your inpatient care: You were admitted to [facility] on due to concern for a gastric perforation- you were transferred from [facility]. You had an NGtube placed, started on IV antibiotics, Imaging completed and an oncology consult was completed. You had surgery on 04/05/2024 and were discharged after your pain was well controlled and after tolerating a diet and ambulating in the mcdonald. Follow-up with surgery and oncology has been scheduled. Your primary diagnosis at discharge was abdominal mass Please follow these instructions carefully: Activity: Getting up and walking after surgery aids recovery in many ways. Much of the pain after major surgery is from muscle spasm. Getting out of bed, sitting and walking help you loosen up and actually reduce your pain. This also helps your breathing and quickens the recovery of your bowel function. Walking and using the stairs is permitted. You should try to get lots of rest. No deep bending and stretching. You should avoid full activity and vigorous exercise for about six to eight weeks after surgery. Pace your activities at home. Do not resume driving until you are cleared by your surgeon to do so. No lifting, pushing or pulling more than 10 lbs for 6 weeks. Have a family member or friend available to help you with your daily activities or household preparations. Diet: Progress slowly to your regular diet unless otherwise instructed. Pain Control: Take medication as prescribed. Incisions: Wash incisions with soap and water and keep dry. DERMABOND surgical adhesive covers your incision. This will begin to fall off in about 2 weeks. Do not pick at the wound. Do not apply any ointment or lotion to the incision. You may shower but avoid tub bathing/swimming Constipation: It is normal not to have a bowel movement for up to 3 days after surgery due to anesthesia. To prevent constipation, drink plenty of liquids and eat plenty of fiber which includes fruits & vegetables. After surgery, start taking Milk of Magnesia (over the counter) 2 tablespoons at bedtime followed by a full glass of liquid. Once you have a bowel movement, stop taking the Milk of Magnesia. Follow Up Appointment: If one has not already been made for you, call the surgeons office at the number listed above when you get home to schedule a follow-up appointment for 7- 10 days. Call the surgeon with any of the following symptoms: Fever higher than 101 degrees Fahrenheit. Severe pain not relieved by pain medication. Inability to void. Excessive bleeding, swelling, redness, or drainage from any of the incisions. Date you may return to work or school: Based on further instruction reviewed by surgeon after follow up visit. Follow up appointment with EGS via telephone call in two weeks Inpatient test results pending: Surgical Pathology Operations & Procedures: diagnostic laparoscopy with peritoneal washings, bilateral TAP block Complications: None Advance Directive Documented: Advance Directive Does the Patient have an Advance Directive? No documented in this encounter Progress Notes * Bayron Mejia MD - 04/05/2024 4:12 AM EDT PROGRESS NOTE - Trauma/Emergency Surgery [facility]-[address] [address] Name: Kamila Bañuelos Location: OR [facility]/OR Date: 04/05/2024 Time: 6:31 AM DIAGNOSIS: concern for gastric perforation PROCEDURE: none this admission DATE OF SURGERY: N/A POST OP DAY: N/A SUBJECTIVE: NAEON, VSS - afebrile, satting well. Voiding spontaneously. Offers no concerns this AM. OBJECTIVE: Most Recent Vital Signs: BP: 132 mmHg/70 mmHg (04/05/24547) Pulse: 88 (04/05/24547) Temp: 36.39 C (04/05/24547) Temp Summary: Temp Min: 36.4 C (97.5 F) Max: 38 C (100.4 F) SpO2: 97 % (04/05/24547) O2 flow rate: Supplemental O2 Delivery: Room Air, None (04/05/24 015) Vital Signs Last 24 Hours: Systolic BP: Most Recent Systolic BP Av.4 mmHg Min: 123 mmHg Max: 143 mmHg Temperature: Most Recent Temperature Av C Min: 36.39 C Max: 38 C Pulse: Pulse Av.9 Min: 76 Max: 93 Respirations: Resp Av Min: 16 Max: 18 SpO2: SpO2 Av.3 % Min: 95 % Max: 98 % In / Out Past 24 Hrs: Intake/Output Summary (Last 24 hours) at 04/05/2024 0631 Last data filed at 04/05/2024 0135 Gross per 24 hour Intake 0.59 ml Output -- Net 0.59 ml Physical Exam: Constitutional: In no acute distress HEENT: Normocephalic Cardiac: Regular rate and rhythm PULM: Normal effort, no increased work of breathing on room air Abdomen: Soft, nondistended, not much tenderness to palpation. No rebound tenderness or peritoneal signs. Palpable mass in the midepigastrium extending to the RUQ Extremity: No lower extremity edema noted bilaterally, no lower extremity pain noted on palpation. Neuro: Alert and oriented this point LABS: Recent Results (from the past 12 hour(s)) BASIC METABOLIC PANEL Collection Time: 04/05/24 3:31 AM Result Value Ref Range BUN 6 6 - 20 mg/dL Creatinine 0.6 0.5 - 1.0 mg/dL Estimated Glomerular Filtration Rate >90 >=60 mL/min Sodium 136 135 - 146 mmol/L Potassium 3.5 3.5 - 5.1 mmol/L Chloride 102 98 - 107 mmol/L CO2 24 22 - 32 mmol/L Anion Gap 10 7 - 15 mmol/L Glucose 110 70 - 120 mg/dL Calcium 8.5 8.4 - 10.2 mg/dL CBC Collection Time: 04/05/24 3:31 AM Result Value Ref Range WBC 14.28 (H) 4.00 - 10.80 K/uL RBC 3.17 3.85 - 5.15 M/uL HGB 9.4 (L) 12.0 - 15.3 g/dL HCT 29.1 (L) 36.0 - 45.2 % MCV 91.8 81.5 - 97.5 fL MCH 29.7 27.0 - 34.0 pg MCHC 32.3 32.0 - 36.0 g/dL RDW 14.0 11.5 - 15.5 % PLT 265 140 - 400 K/uL MPV 9.2 6.6 - 11.1 fL nRBCs 0 <=0 /100 WBCs MAGNESIUM Collection Time: 04/05/24 3:31 AM Result Value Ref Range Magnesium 1.8 1.5 - 2.6 mg/dL PHOSPHORUS Collection Time: 04/05/24 3:31 AM Result Value Ref Range Phosphorus 3.4 2.5 - 4.8 mg/dL TYPE AND SCREEN Collection Time: 04/05/24 3:31 AM Result Value Ref Range ABO A Rh Positive Red Blood Cell Antibody Screen Negative Specimen Expiration Date 04/08/2024 23:59 IMAGING: No imaging results in the last 24 hours' IMPRESSION and PLAN: Principal Problem: Abdominal pain, epigastric Active Problems: Gastric adenocarcinoma (HCC) HTN (hypertension) 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 * Patient is a 50-year-old female presenting as a transfer from [facility] for possible gastric antral perforation in the setting of newly diagnosed gastric adenocarcinoma. - Plan for OR today for diagnostic lap and possible mediport placement - Consent signed this AM - Ancef sports cartoonist to OR - Pain: Tylenol, Soma PRN, dilaudid PRN - ABX: diflucan and zosyn - GI nutrition: Regular diet - GI ppx: IV PPI - DVT: SCD, lovenox - Home Meds: on metoprolol, DISPO: med surg, OR today Patient seen and discussed with Dr. Ramon Mejia MD General Surgery PGY-1 04/05/2024 6:31 AM Associated attestation - Ligia Navarro MD - 04/05/2024 1:27 PM EDT I saw and evaluated the patient today. I have reviewed the trainee note and agree. Pt seen in preop. Abdominal pain remains the same. Continues to tolerate regular diet until midnight last night. Again we talked about the risks of the operation today including increased risk of injury to bowel due to inflammation/adhesions caused by the mass. Discussed that if there is a place amenable to biopsy that we would do this and that if a frozen section confirmed adenocarcinoma, I would proceed with mediport placement. However, if unable to get a biopsy or confirm the diagnosis, mediport will notbe done. Risks and benefits of mediport discussed including potential for infection, pneumothorax, port malfunction necessitating multiple procedures. Pt shows good understanding and asked appropriate questions which were answered to her satisfaction. Will proceed with OR today. Ligia Navarro MD Trauma and General Surgery Critical Care * Bayron Mejia MD - 04/04/2024 4:28 AM EDT PROGRESS NOTE - Trauma/Emergency Surgery [facility]-[address] [address] Name: Kamila Bañuelos Location: [facility] H678/A Date: 04/04/2024 Time: 10:23 AM DIAGNOSIS: concern for gastric perforation PROCEDURE: none this admission DATE OF SURGERY: N/A POST OP DAY: N/A SUBJECTIVE: NAEON, VSS - afebrile, satting well. No reported episodes of emesis. NGT removed yesterday. Voidingspontaneously. OBJECTIVE: Most Recent Vital Signs: BP: 123 mmHg/68 mmHg (04/04/24 1009) Pulse: 76 (04/04/24 1009) Temp: 36.72 C (04/04/24 1009) Temp Summary: Temp Min: 36.7 C (98.1 F) Max: 37 C (98.6 F) SpO2: 97 % (04/04/24 1009) O2 flow rate: Supplemental O2 Delivery: Room Air, None (04/04/241008) Vital Signs Last 24 Hours: Systolic BP: Most Recent Systolic BP Av.7 mmHg Min: 123 mmHg Max: 153 mmHg Temperature: Most Recent Temperature Av.9 C Min: 36.72 C Max: 37 C Pulse: Pulse Av Min: 76 Max: 97 Respirations: Resp Av Min: 17 Max: 20 SpO2: SpO2 Av.2 % Min: 95 % Max: 100 % In / Out Past 24 Hrs: Intake/Output Summary (Last 24 hours) at 04/04/2024 1023 Last data filed at 04/04/2024 0800 Gross per 24 hour Intake 2362.74 ml Output 0 ml Net 2362.74 ml Physical Exam: Constitutional: In no acute distress HEENT: Normocephalic Cardiac: Regular rate and rhythm PULM: Normal effort, no increased work of breathing on room air Abdomen: Soft, nondistended, not much tenderness to palpation. No rebound tenderness or peritoneal signs. Palpable mass in the midepigastrium extending to the RUQ Extremity: No lower extremity edema noted bilaterally, no lower extremity pain noted on palpation. Neuro: Alert and oriented this point LABS: Recent Results (from the past 12 hour(s)) BASIC METABOLIC PANEL Collection Time: 04/04/24 6:55 AM Result Value Ref Range BUN 9 6 - 20 mg/dL Creatinine 0.5 0.5 - 1.0 mg/dL Estimated Glomerular Filtration Rate >90 >=60 mL/min Sodium 135 135 - 146 mmol/L Potassium 3.3 (L) 3.5 - 5.1 mmol/L Chloride 100 98 - 107 mmol/L CO2 19 (L) 22 - 32 mmol/L Anion Gap 16 (H) 7 - 15 mmol/L Glucose 114 70 - 120 mg/dL Calcium 8.7 8.4 - 10.2 mg/dL CBC Collection Time: 04/04/24 6:55 AM Result Value Ref Range WBC 16.25 (H) 4.00 - 10.80 K/uL RBC 3.26 3.85 - 5.15 M/uL HGB 9.6 (L) 12.0 - 15.3 g/dL HCT 29.8 (L) 36.0 - 45.2 % MCV 91.4 81.5 - 97.5 fL MCH 29.4 27.0 - 34.0 pg MCHC 32.2 32.0 - 36.0 g/dL RDW 13.9 11.5 - 15.5 % PLT 320 140 - 400 K/uL MPV 9.2 6.6 - 11.1 fL nRBCs 0 <=0 /100 WBCs MAGNESIUM Collection Time: 04/04/24 6:55 AM Result Value Ref Range Magnesium 1.9 1.5 - 2.6 mg/dL PHOSPHORUS Collection Time: 04/04/24 6:55 AM Result Value Ref Range Phosphorus 2.7 2.5 - 4.8 mg/dL IMAGING: No imaging results in the last 24 hours' IMPRESSION and PLAN: Principal Problem: Abdominal pain, epigastric Active Problems: Gastric adenocarcinoma (HCC) HTN (hypertension) 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 * Patient is a 50-year-old female presenting as a transfer from [facility] for possible gastric antral perforation in the setting of newly diagnosed gastric adenocarcinoma. - IR consult for port placement - Pain: Tylenol, Soma PRN, dilaudid PRN - ABX: diflucan and zosyn - GI nutrition: Regular diet - GI ppx: IV PPI - DVT: SCD, lovenox - Home Meds: on metoprolol, - Dispo: med surg Will try to get port placed prior to discharge Patient seen and discussed with Dr. Ramon Mejia MD General Surgery PGY-1 04/04/2024 10:23 AM Associated attestation - Ligia Navarro MD - 04/04/2024 4:29 PM EDT I saw and evaluated the patient today. I have reviewed the trainee note and agree. 58 year old female with likely gastric adenocarcinoma transferred after possible perforation. CT with PO contrast did not show any evidence of perforation. She has been tolerating a regular diet. BP 136/71 | Pulse 83 | Temp 38 C (100.4 F) (Tympanic) | Resp 18 | Ht 1.727 m (5' 8") | Wt 91.6 kg (202 lb) | SpO2 95% | BMI 30.71 kg/m | BSA 2.1 m GEN: NAD, up to chair HENT: MMM, trachea midline, no scleral icterus CHEST: breathing comfortably on RA, symmetric chest rise ABD: soft, nontender, nondistended, no rebound/guarding EXT: WWP Plan: -discussed extensively with Dr. Harper, Dr. Michaels and the patient. -will plan for OR tomorrow for diagnostic laparoscopy, peritoneal washing, possible biopsy and possible port placement. -risks and benefits discussed thoroughly and pt wants to proceed. Ligia Navarro MD Trauma and General Surgery Critical Care documented in this encounter H&P Notes * Bayron Mejia MD - 03/31/2024 10:38 AM EDT HISTORY AND PHYSICAL EXAMINATION - Trauma/Emergency Surgery [facility] [address] Name: Kamila Bañuelos Location: [facility] H678/A Date: 03/31/2024 Time: 10:38 AM PRESENTING PROBLEM: concern for gastric perforation HISTORY OF PRESENT ILLNESS: Kamila Bañuelos is a 58 year old, female with Past medical history of hypertension, cardiac catheterization ( 07/31) presenting as a transfer from [facility] for concerns of gastric perforation in the setting of newly diagnosed gastric adenocarcinoma. Patient states over the last 3 months she has had 3episodes of acute epigastric abdominal pain with radiation down the right flank to the back. Patient states her 1st episode resulted in the 11 and 12 day admission to [facility]. Patient states that her most recent pain started roughly 5 days ago. Patient received PET scan yesterday at [facility] for oncologic workup. States that the pain worsened following the PET scan necessitating evaluation and now in the ED. CT scan at that time revealed concern for gastric antrum perforation. Labs were within normal limits. The patient could not tolerate NG tube placement at OSH. Patient was subsequently transferred [facility] for surgical evaluation. At bedside, patient states epigastric pain has significantly improved. Patient denies any nausea orvomiting. Patient expressed concerns over having NG tube placed at bedside but is understanding of the necessity. Patient denies any other concerns at this time. HOSPITAL PROBLEM LIST: Principal Problem: Abdominal pain, epigastric (POA: Unknown) Active Problems: Gastric adenocarcinoma (HCC) (POA: Unknown) HTN (hypertension) (POA: Unknown) POA = Present On Admission PAST MEDICAL HISTORY: No past medical history on file. PAST SURGICAL HISTORY: No past surgical history on file. FAMILY HISTORY: No family history on file. SOCIAL HISTORY: Social History Tobacco Use Smoking status: Never Smokeless tobacco: Never Vaping Use Vaping status: Never Used Substance Use Topics Alcohol use: Not Currently Alcohol/week: 2.0 standard drinks of alcohol Types: 2 1.5 oz of liquor per week Comment: quit Nov 2021, only will have a drink on special occassions Drug use: Never CURRENT HOSPITAL MEDICATIONS: Note that completed medications (per the MAR) continue to display for 24 hours. Ordered medicationsto be given in the future also display. Current Facility-Administered Medications Medication Dose Route Frequency Provider Acetaminophen (Ofirmev) inj 1,000 mg 1,000 mg Intravenous Q6H Bayron Mejia MD [START ON 04/01/2024] Enoxaparin (Lovenox) inj 40 mg 40 mg Subcutaneous Daily(AM) Bayron Mejia MD HYDROmorphone (Dilaudid) inj 0.2 mg 0.2 mg IV Push Q4H PRN Bayron Mejia MD HYDROmorphone (Dilaudid) inj 0.5 mg 0.5 mg IV Push Q2H PRN Bayron Mejia MD naloxone (Narcan) 0.4 MG/ML inj 0.08 mg 0.08 mg IV Push PRN Bayron Mejia MD ondansetron ODT (Zofran) tab 4 mg 4 mg On Tongue Q6H PRN Bayron Mejia MD Or ondansetron (Zofran) inj 4 mg 4 mg IV Push Q6H PRN Bayron Mejia MD Pantoprazole (Protonix) inj 40 mg 40 mg IV Push Daily(AM) Bayron Mejia MD sodium chloride 0.9 % flush peripheral nikole 3 mL 3 mL IV Push Q Shift Bayron Mejia MD ALLERGIES: Sulfa antibiotics ROS: Negative except as noted above PHYSICAL EXAMINATION: Most Recent Vital Signs: BP: 135 mmHg/59 mmHg (03/31/24931) Pulse: 87 (03/31/24931) Temp: 36.72 C (03/31/24931) Temp Summary: Temp Min: 36.7 C (98.1 F) Max: 36.7 C (98.1 F) SpO2: 96 % (03/31/24931) O2 flow rate: Supplemental O2 Delivery: Room Air, None (03/31/24931) Constitutional: no acute distress HEENT: normal: normocephalic, atraumatic; no masses, tenderness, or adenopathy Eyes: sclera and conjunctiva normal CV: normal rate, normal rhythm Chest: normal respiratory effort Abdomen: soft, mildly tender to palpation diffusely, mildly distended , no rebound or guarding Skin: warm, dry, intact: LABS: Labs reviewed as indicated below: Recent Results (from the past 12 hour(s)) BASIC METABOLIC PANEL Collection Time: 03/31/24 10:08 AM Result Value Ref Range BUN 10 6 - 20 mg/dL Creatinine 0.7 0.5 - 1.0 mg/dL Estimated Glomerular Filtration Rate >90 >=60 mL/min Sodium 134 (L) 135 - 146 mmol/L Potassium 4.2 3.5 - 5.1 mmol/L Chloride 99 98 - 107 mmol/L CO2 25 22 - 32 mmol/L Anion Gap 10 7 - 15 mmol/L Glucose 93 70 - 120 mg/dL Calcium 8.8 8.4 - 10.2 mg/dL LACTATE Collection Time: 03/31/24 10:08 AM Result Value Ref Range Lactate 0.6 0.4 - 2.0 mmol/L CBC Collection Time: 03/31/24 10:08 AM Result Value Ref Range WBC 7.51 4.00 - 10.80 K/uL RBC 3.28 3.85 - 5.15 M/uL HGB 9.8 (L) 12.0 - 15.3 g/dL HCT 30.7 (L) 36.0 - 45.2 % MCV 93.6 81.5 - 97.5 fL MCH 29.9 27.0 - 34.0 pg MCHC 31.9 32.0 - 36.0 g/dL RDW 13.4 11.5 - 15.5 % PLT 245 140 - 400 K/uL MPV 10.2 6.6 - 11.1 fL nRBCs 0 <=0 /100 WBCs DIFFERENTIAL, AUTOMATED Collection Time: 03/31/24 10:08 AM Result Value Ref Range WBC 7.51 4.00 - 10.80 K/uL Neutrophils % 74.8 40.0 - 75.0 % Lymphocytes % 11.1 (L) 18.0 - 42.0 % Monocytes % 12.9 (H) 1.0 - 11.0 % Eosinophils % 0.5 0.0 - 6.0 % Basophils % 0.3 0.0 - 2.0 % Immature Granulocytes % 0.4 0.0 - 2.0 % Absolute Neutrophils 5.62 1.80 - 7.70 K/uL Absolute Lymphocytes 0.83 (L) 1.00 - 4.80 K/ul Absolute Monocytes 0.97 0.00 - 1.10 K/uL Absolute Eosinophils 0.04 0.00 - 0.70 K/uL Absolute Basophils 0.02 0.00 - 0.20 K/uL Absolute Immature Granulocytes 0.03 0.00 - 0.20 K/uL IMAGING: No imaging results in the last 24 hours IMPRESSION and PLAN: Patient is a 50-year-old female presenting as a transfer from [facility] for possible gastric antral perforation in the setting of newly diagnosed gastric adenocarcinoma. - Admit to Surgery [place] - Diet: NPO - mIVF - IV Protonix - NGT to LIS - CT with PO contrast via NGT after decompression - Analgesia: IV Tylenol, dilaudid PRN - Nausea: Zofran - Restarted [employer] metoprolol Patient discussed with and seen by Dr. Wallis. Bayron Mejia MD General Surgery PGY-1 03/31/2024 10:51 AM REFERRING PHYSICIAN: 1. Ga Doll PA-C PRIMARY CARE PHYSICIAN: Jorge Luis Gil PA-C Associated attestation - Juanito Wallis MD - 03/31/2024 1:19 PM EDT I saw and evaluated the patient today. I have reviewed the trainee note and agree. O/E - Abdomen soft, tender in RUQ with fullness WBC 7.5 CT films reviewed and discussed with radiology (antral tumor with contained perforation) Plan NPO NGT CT with po contrast Oncology evaluation documented in this encounter Consult Notes * Alessandro Pena RDN - 03/31/2024 2:39 PM EDT CLINICAL NUTRITION CONSULT/PROGRESS NOTE [facility] [address] Name: Kamila Bañuelos Location: [facility] H678/A Date: 03/31/2024 Time: 2:39 PM How patient was identified (select 2): Medical record number and Name Discussed in interdisciplinary rounds: Saima Bañuelos is a 58 year old female being seen for reduced dietary intake and significant unintentional weight loss Primary Diagnosis: from [facility] for concerns of gastric perforation in the setting of newly diagnosed gastric adenocarcinoma Other pertinent information: This wrier attempted the see the pt multiple times. Pt is being seen by other providers. This magnetic tape typewriter operator called the pt's . He is able to provide nutrition history. Reported that she is not able to eat well past 2- 7 days. She usually follows low sodium diet. No chewing/swallowing difficulty reported. As per flow sheets bloating nausea reported. Pt's is not really sure about UBW-. He thinks that ~200 lbs. NGT to suction and CT. Will monitor for plan. NUTRITION ASSESSMENT: Past medical/surgical history and medications reviewed. Food/Nutrition-Related History Diet: NPO Previously followed diet: low sodium Food Allergies/Intolerances: None Adult Energy Intake: Less than 75% of estimated energy requirement for greater than 7 days (moderate, acute illness). Pertinent medications/vitamins/minerals/supplements: Pantoprazole, Pertinent Biochemical Data: There are no biochemical abnormalities requiring a change in the nutrition plan of care. Nutrition-Focused Physical Findings: Appearance: Ill-appearing Respiratory support: Supplemental O2 Delivery: Room Air, None Nasal/Oral: No issues identified Digestive: Abdominal distention, Nausea, and bowel perforation Last Bowel Movement: (prehospital) (03/31/24 0932) Cognition: Awake, alert and Oriented Skin: Intact Enteral access: NGT to suction Nutrition Focused Physical Exam: NFPE unable to do as pt is being seen by other providers Anthropometrics Measurements Height: 172.7 cm (5' 8") (03/31/24 09) Admission weight: 91.627 kg (202 lb) Weight: 91.6 kg (202 lb) (03/31/24934) BMI: 30.72 (03/31/24934) Usual Body Weight: 64 -65 kg per EHR [place] weight: 74.3 kg [place] Weight Based on BMI: 24.9 Adjusted ideal weight: 78.6 kg Interpretation of Weight Change Prior to Admission: No recent weight/weight history available Nutrition Prescription: Energy needs: Other: 20-25 Kcal/kg Kcal/day: 1832 - 2290 Based on admission weight - 91.6 kg Protein needs: 1.2-1.5 gm/kg Protein: 89 -111 gm Based on [place] weight - 74.3 kg Fluid needs: 30 ml/kg Fluid: 2358 ml/day Based on adjusted ideal weight -78.6 kg Malnutrition: Adult Malnutrition Classification: Unable to determine (03/31/24 0261) NUTRITION DIAGNOSIS: Increased nutrient needs calorie and protein needs related to cancer as evidenced by nutrient demands of the condition Altered GI function related to gastric perforation as evidenced by NPO and possible need for parenteral nutrition Goals: Diet advancement or initiation of enteral/parenteral nutrition within 24-48 hours. NUTRITION INTERVENTION/PLAN: Continue to monitor NPO/clear liquid status Clinical Nutrition Recommendations: Diet: Advance diet when clinically feasible Parenteral Nutrition: if diet can't be advanced, send consult to GI nutrition If PN required, goal macros: 60 gm lipids, 110 gm protein and 282 gm dextrose to provide 1918.8 kcal. NUTRITION MONITORING AND EVALUATION: NPO status/diet advancement and tolerance Lab values warranting change with MNT Weight for trends Plan follow-up: Will follow and adjust nutrition plan of care as medical condition requires. Please contact for change(s) in patient condition requiring earlier intervention. Alessandro Pena MS, JEMMAN, LDN Clinical Dietitian [facility] text * Morgan Mercedes PA-C - 03/31/2024 12:57 PM EDTAssociated Order(s): ONCOLOGY CONSULT IP Images from the original note were not included. CONSULT - Oncology [facility] [place]-[address] [address] Name: Kamila Bañuelos Location: [facility] H678/A Date: 03/31/2024 Time: 12:58 PM REQUESTING SERVICE: surgery REASON FOR CONSULT: "patient with recently diagnosed gastric adenocarcinoma presenting with possible gastric perforation, in early discussion of treatment, please provide next steps in the event thatthe patient does not have a perforation " REFERRING PHYSICIAN: MD Jackie DIAGNOSIS: well differentiated gastric adenocarcinoma HISTORY OF PRESENT ILLNESS: Ms. Bañuelos is a 58 y/o female with PMH gastric ulcer/gastritis from 10/2023 at which time she underwent EGD with negative biopsy-per pt. She was treated with PPI. [facility] 2 weeks of abdominal pain. She underwent CT imaging 03/03/24 which was concerning for pyloric thickening. She underwent EGD 03/07/24 showing a medium sized, infiltrative, non-circumferential mas in gastric antrum with normal esophagus and duodenum. Biopsies taken showed well differentiated infiltrate adenocarcinoma. PDL1 CPS =2, [id number] neg. She was discharged and followed up with Oncologist Dr. Phan at [place]. A PET scan was done 03/29/24 with pending read currently. She was to follow up with surgery at [facility] but has not had appt yet. She presented to [facility] ED today with c/o worsening abd pain, midline to RUQ. She takes hydrocodone at home which was not helping. Only able to eat a few crackers at home, makes pain worse. Vomited x 1a few days ago. Last BM 4 days ago. No melena, brbpr. CT showed concern for gastric perforation with contained contents and surrounding stranding. She was transferred to [facility] for further evaluation. An NGT was placed with 750mL dark liquid removed in 1st hour. Denies f/c/s, chest pain, sob, current n/v. PAST MEDICAL HISTORY: Past Medical History: Diagnosis Date Perforated gastric ulcer (HCC) S/P cardiac cath PAST SURGICAL HISTORY: Past Surgical History: Procedure Laterality Date DENTAL SURGERY PROCEDURE NEC TOOTH ROOT REMOVAL FAMILY HISTORY: Family History Problem Relation Name Age of Onset Heart disease Mother SOCIAL HISTORY: Social History Tobacco Use Smoking status: Never Smokeless tobacco: Never Vaping Use Vaping status: Never Used Substance Use Topics Alcohol use: Not Currently Alcohol/week: 2.0 standard drinks of alcohol Types: 2 1.5 oz of liquor per week Comment: quit Nov 2021, only will have a drink on special occassions Drug use: Never ALLERGIES: Sulfa antibiotics REVIEW OF SYSTEMS: All others negative other than those noted in HPI PHYSICAL EXAM: Most Recent Vital Signs: BP: 135 mmHg/59 mmHg (03/31/24931) Pulse: 87 (03/31/24931) Temp: 36.72 C (03/31/24931) Temp Summary: Temp Min: 36.7 C (98.1 F) Max: 36.7 C (98.1 F) SpO2: 96 % (03/31/24931) O2 flow rate: Supplemental O2 Delivery: Room Air, None (03/31/24931) PE: Constitutional: in bed, NAD. Eyes: anicteric, sclera white. conjunctiva pink. ENT/Mouth: MM moist and pink. Resp: Clear to auscultation bilaterally without rales, wheeze, ronchi. Breath sounds all dew[place]. CV: RRR without murmur, rub or gallop. + S1 and S2. No edema or cyanosis. GI: + bowel sounds, soft. +TTP on right with fullness. Integumentary: [place], warm, dry without lesions or ecchymoses. Musculoskeletal: ROM is normal. No joint tenderness. Neck supple. Neurologic: AA O x3 but has difficulty remembering timeline of events. Of note had ativan prior to placing NGT. Speech is clear. CN II-XII grossly intact. Sensation intact to light touch throughout. Muscle strength 5/5 and equal bilaterally in all major muscle groups. Psychiatric: Calm, pleasant affect. Heme/Lymph: No cervical, supraclavicular, axillary, inguinal lymphadenopathy noted. LABS: I have personally reviewed the following labs CBC/DIFF CHEMISTRY Lab results within last 7 days (see chart for full results) Units 03/31/24 1008 BUN mg/dL 10 Creatinine mg/dL 0.7 Estimated Glomerular Filtration Rate mL/min >90 Sodium mmol/L 134* Potassium mmol/L 4.2 Chloride mmol/L 99 Calcium mg/dL 8.8 CO2 mmol/L 25 Anion Gap mmol/L 10 Glucose mg/dL 93 Lab results within last 7 days (see chart for full results) Units 03/31/24 1008 WBC K/uL 7.51 HGB g/dL 9.8* PLT K/uL 245 Neutrophils % % 74.8 Monocytes % % 12.9* LFTs No results in the last 7 days - inpatent use only RADIOLOGY: CT A/P with IV contrast 03/31/2024:: IMPRESSION: 1. Rupture of the gastric antrum with gas and fluid containing collection 5.3 x 6.5 x 4.8 cm. With extensive adjacent inflammatory change 2. Annular thickening noted at he gastric antrum whjich may be ractive in nautre 3. Inflammatory change within the mesentery and laong the anterior abd wall which is favored to be reactive in nature. Cannot exclude peritoneal carcinomatosis. PATHOLOGY: From EGD 03/07/24: ASSESSMENT: Well differentiated gastric adenocarcinoma, her 2neu neg, PDL1 CPS = 2 Gastric perforation Cancer related pain HTN PLAN: 58 y/o female with recently diagnosed well differentiated gastric adenocarcinoma, her2 juliet negative, PDL1 CPS=2. PET CT images and CT images are reviewed from 03/03, 03/29 and 03/31. Outside records are reviewed from [facility]. -her case is reviewed with her primary surgical team. -no urgent/inpatient chemotherapy is indicated -she has significant risk of peritoneal carcinomatosis given perforation -surgical plan needs to be assessed as well as plan for nutritional intake. -if she is able to eat reliably can plan perioperative chemotherapy, otherwise will need to plan alternative forms of nutrition -she understands that if she develops open perforation will need urgent surgery -she plans to follow up with Dr. Howie Candelaria at [place] after discharge- appt has been made for 04/13/23. --in the meantime will discuss adding NGS, MSI and GMC review of pathology with Dr. Candelaria's team. Thank you for allowing us to participate in care of this pleasant patient. Patient is seen and examined with Dr Michaels. I spent a total of 75 minutes coordinating, documenting, and providing care for this patient excluding time spent in the performance of separately billed services or time spent by another provider/QHP. Associated attestation - Marcello Michaels MD - 03/31/2024 5:23 PM EDT I have reviewed the advanced practitioner's documentation on the date of service referenced in note, and I agree with, and take responsibility for the plan of care. I spent a total of one hour and 20 minutes coordinating, documenting, and providing care for this patient excluding time spent in the performance of separately billed services or time spent by another provider/QHP. 58 yo woman with recent diagnosis of "atypical glandular proliferation most consisstent with a welldifferentiated infiltrating adenocarcinoma" her2 negative, cps 2. [facility] and [facility] in transfer with concern for gastric perforation I had a lengthy discussion with Ms. Bañuelos today. The challenges here are many in this complex case. In a 'typical' gastric cancer case it can be reasonable (and is c/w nccn guideline) to consider a surgical laparoscopic examination and peritoneal washing to assess for disease burden. Her case is complex when I review the imaging and I do have concern for a perforation from her tumor which could have resulted in contamination of the abdomen. Ultimately, I would suggest review of pathology (slides may be in han?) and ngs testing (and MSI testing). We will need to understand safety for multiple cycles of cytotoxic chemotherapy and I amnot certain we will have that assessment without a surgical assessment of the abdomen, but I defer to the surgical service, of course, on this issue. She had questions about obtaining her imaging on disc for review. Her brother is friends with a hepatobiliary surgeon at [facility] who, as I understand it, will review material as well. RECS: -assessment from surgical team re: safety for multiple cycles of chemotherapy in the setting of abdominal ct findings. As I see the picture now, I would not be comfortable to proceed with chemotherapy -OUTPATIENT chemotherapy would be the plan, patient has f/u with Dr. Candelaria -I will reach out to Dr. Candelaria who is scheduled to see her in consultation in April (she has scheduled this for transfer of oncology care). We remain available if there are additional questions/concerns. documented in this encounter Nursing Notes * Violette Stephens LPN - 04/05/2024 2:18 PM EDT Dual Licensed Skin Assessment completed by Violette Holland LPN and Anirudh Parikh RN. The patient is/has a N/A Skin Breakdown (includes non blanchable erythema): Yes - Surgical/Procedural changes only. * Diana Shay NA - 04/05/2024 2:11 PM EDT Post Anesthesia Care Unit Transport Note [facility] [address] [facility] [address] Dept. Kamila Bañuelso Transported from PeriOp to : H6 Time: 1345 Care of patient transferred to: Violette SEXTON Transported via: Bed Belongings with Patient: Not Applicable Pulse : 77 Temp : n/a BP : 153/73 Respirations : 16 Pulse Ox : 95 O2 : 2L SCDS: On but not activated/no machine * Alexander Wood RN - 04/05/2024 1:08 PM EDT PERIOP TO IP HANDOFF COMMUNICATION NOTE [facility] [address] Name: Kamila Bañuelos AGE: [age] year old Location: OR [facility]/OR Date: 04/05/2024 Attention to: Violette Stephens Report from: ALEXANDER WOOD RN Patient arriving via: Bed Time of call: 1:08 PM Phone Ext: [phone] Reason for SBAR (Situation, Background, Assessment, Recommendation) handoff: OR Sending to: [facility] Emotional/Personal Events & Special Needs: None Prescriptions in chart: No Code Status: Full Code Safety Concerns: no safety concerns identified Allergies: Sulfa antibiotics PMH: Past Medical History: Diagnosis Date Perforated gastric ulcer (HCC) S/P cardiac cath PSH: Past Surgical History: Procedure Laterality Date DENTAL SURGERY PROCEDURE NEC TOOTH ROOT REMOVAL Isolation: Isolation: Procedure: Diagnostic laparoscopy abdominal washout Type of Anesthesia: General endotracheal anesthesia Block: N/a IV intake: 1000 mL EBL: OR: 10 mL PACU: 0 mL Urine output: OR n/a PACU 0 mL IUBC ([place]): Incision location: Abdomen Dressing location: Abdomen Time of last skin assessment: 1230 Pressure injuries or areas of concern: None Lines: Peripheral Line Left;Lower 22 Gauge (Active) Status Fluids infusing;Flushes easily 04/05/24 1220 Tubing Changed N/A 04/05/24 1220 Phlebitis Scale 0 04/05/24 1220 Infiltration Scale 0 04/05/24 1220 Site Description (Other) Without redness, swelling or drainage 04/05/24 1220 Site Intervention Flushed 04/05/24 1220 Dressing Assessment Dressing clean, dry, and intact 04/05/24 1220 Dressing Intervention None required 04/05/24 1220 Number of days: 3 Peripheral Line Right Hand 16 Gauge (Active) Status Capped/Locked;Flushes easily 04/05/24 1220 Tubing Changed N/A 04/05/24 1220 Phlebitis Scale 0 04/05/24 1220 Infiltration Scale 0 04/05/24 1220 Site Description (Other) Without redness, swelling or drainage 04/05/241219 Site Intervention Flushed 04/05/241219 Dressing Assessment Dressing clean, dry, and intact 04/05/241219 Dressing Intervention None required 04/05/241219 Number of days: 0 Vital Signs: BP: 148/77 (04/05/24 1245) Temp: 36.5 C (97.7 F) (04/05/24 122) Pulse: 73 (04/05/24 124) Resp: 15 (04/05/241244) SpO2: 97 % (04/05/241244) O2 flow rate: 2 L/MIN (04/05/241244) Time of last pain medication: 1215 Med: Dilaudid Time of last antibiotic: 1039 Med: Ancef Time of last antiemetic: 1134 Med: Zofran ELECT[employer]ICAL ELECTRON[employer] ENGINEER: no Drips: no Neurological: Neuro WNL: WNL - within normal limits (04/04/241999) Speech: Clear (04/05/241219) Level of Consciousness: Responds to voice (04/05/241219) RUE Motor Strength: 5-Active movement with full resistance (04/05/241219) RLE Motor Strength: 5-Active movement with full resistance (04/05/241219) LUE Motor Strength: 5-Active movement with full resistance (04/05/241219) LLE Motor Strength: 5-Active movement with full resistance (04/05/241219) Coma Score: 14 (04/05/241219) Respiratory: Respiratory WNL: WNL- within normal limits (04/05/241219) Depth/Rhythm: Regular (04/05/241219) Dyspnea Occurance: None (04/05/241219) Effort: Unlabored (04/05/241219) Oxygen therapy/ Mechanical vent Supplemental O2 Delivery: Nasal Cannula (04/05/241244) O2 flow rate: 2 L/MIN (04/05/241244) Cardiac: Cardiovascular WNL: WNL - within normal limits (04/05/241219) Heart Sounds: S1;S2 (04/05/241219) Rhythm: Regular;NSR (04/05/241219) Extremities: +Sensation;Right;Left;Upper;Lower;Warm;[place] (04/05/24 1220) Pulses Right: Dorsalis Pedis +;Radial +;Palpable (04/05/24 1220) Pulses Left: Dorsalis Pedis +;Radial +;Palpable (04/05/24 1220) Capillary Refill: 2 sec (04/05/24 1220) GI: GI WNL: X - Exceptions to WNL as documented below (04/05/24 1220) Abdomen: Soft;Tender (04/05/24 1220) : WNL: X - Exceptions to WNL as documented below (04/05/24 1220) Urine Description: Other-Describe (No urine to assess at this time) (04/05/24 122) Due to Void: 1820 Integumentary:Integumentary WNL: X - Exceptions to WNL as documented below (04/05/24 1220) Skin Description: Warm;Dry (04/05/24 1220) Skin Color: Flesh Tone (04/05/24 1220) Skin Lesion: Other - Describe (see below) (04/05/24 1220) Max Score (auto-calculation): 22 (04/05/24 0000) Family updated on transfer: no Additional Assessment Information: Patient moving all extremities. Three incisions on abdomen all intact. * Alexander Wood RN - 04/05/2024 12:41 PM EDT Dual Licensed Skin Assessment completed by Alexander Cavanaugh and Patience Armijo The patient is/has a N/A Skin Breakdown (includes non blanchable erythema): Yes - Surgical/Procedural changes only. * Vijay So RN - 04/05/2024 9:22 AM EDT Dual Licensed Skin Assessment completed by vijay so and Juana Polanco The patient is/has a N/A Skin Breakdown (includes non blanchable erythema): No * Johny Thompson RN - 04/05/2024 6:01 AM EDT IP TO PERIOP HANDOFF COMMUNICATION NOTE [address] [address] Name: Kamila Bañuelos AGE: [age] year old Location: [address] Date: 04/05/2024 Attention to: PACU NURSE Report from: Johny Thompson RN Patient arriving via: Wheelchair Time of Call: 6:05 AM Phone Ext.: [phone] Reason for SBAR handoff: OR Consent: Consent verified? (Correct Procedure, Laterality, Signed, Dated, Timed): No (Covering provider made aware as pt is going down at 0630, responded will be consented on AM rounds.) (04/05/245) Emotional/Personal Events & Special Needs: n/a Allergies: Sulfa antibiotics PMH: Past Medical History: Diagnosis Date Perforated gastric ulcer (HCC) S/P cardiac cath PSH: Past Surgical History: Procedure Laterality Date DENTAL SURGERY PROCEDURE NEC TOOTH ROOT REMOVAL Isolation: Situation/Background Admission Date: 03/31/2024 Patient Service: Surgery [place] Attending: Horace Yu MD Level of Care: Med Surg [3] Assessment Vital Signs: BP: 132/70 (04/05/24 0548) Temp: 36.4 C (97.5 F) (04/05/24 0548) Pulse: 88 (04/05/24 0548) Resp: 16 (04/05/24 0548) SpO2: 97 % (04/05/24 0548) Lines: Peripheral Line Left;Lower 22 Gauge (Active) Status Fluids infusing 04/04/24 2341 Tubing Changed No 04/04/241999 Phlebitis Scale 0 04/04/241999 Infiltration Scale 0 04/04/241999 Site Description (Other) Without redness, swelling or drainage 04/04/241999 Site Intervention Flushed 04/04/241999 Dressing Assessment Dressing clean, dry, and intact 04/04/241999 Dressing Intervention None required 04/04/241999 Number of days: 3 Restraints: No orders of the defined types were placed in this encounter. Labs: Please see Lab Flowsheet for lab values. Lab Comments: Diet: Orders Placed This Encounter Procedures NPO After 2400 Except Meds NPO: NPO Since (Date): 04/05/24 (04/05/24244) NPO Since (Time): 0000 (04/05/24244) Additional Diet Information: MEDS THIS am Intake and Output: Intake/Output Summary (Last 24 hours) at 04/05/2024 0605 Last data filed at 04/05/2024 0135 Gross per 24 hour Intake 2040.59 ml Output -- Net 2040.59 ml Belongings Remaining with Patient: glasses AT BEDSIDE What were AM meds taken with: Metoprolol, Tylenol, Zosyn Time of last pain medication: 0352 Med: Dilaudid 2mg PO Time of last antibiotic: 0500 Med: Zosyn - currently infusing Time of last skin assessment: Now Pressure injuries or areas of concern: None Neurological: Neuro WNL: WNL - within normal limits (04/04/241999) Speech: Clear (04/04/241999) Level of Consciousness: Alert (04/04/241999) RUE Motor Strength: 5-Active movement with full resistance (04/04/241999) RLE Motor Strength: 5-Active movement with full resistance (04/04/241999) LUE Motor Strength: 5-Active movement with full resistance (04/04/241999) LLE Motor Strength: 5-Active movement with full resistance (04/04/241999) Coma Score: 15 (04/04/241999) Respiratory: Respiratory WNL: WNL- within normal limits (04/04/241999) Depth/Rhythm: Regular (04/02/241940) Dyspnea Occurance: None (04/02/241940) Effort: Unlabored (04/04/24 0800) Oxygen therapy/ Mechanical vent Supplemental O2 Delivery: Room Air, None (04/05/24 0159) Cardiac: Cardiovascular WNL: WNL - within normal limits (04/04/241999) GI: GI WNL: X - Exceptions to WNL as documented below (04/04/241999) Abdomen: Soft;Non-distended;Non-tender (04/04/241999) : WNL: WNL - within normal limits (04/04/241999) Integumentary: Integumentary WNL: WNL - within normal limits (04/04/241999) Max Score (auto-calculation): 22 (04/05/24 0000) Additional Assessment Information: * Sandi Anthony RN - 03/31/2024 2:56 PM EDT Dual Licensed Skin Assessment completed by Sandi Cavanaugh RN and Pamela Glover RN. The patient is/has a N/A Skin Breakdown (includes non blanchable erythema): No documented in this encounter OR Notes * OR Surgeon - Ligia Navarro MD - 04/05/2024 1:34 PM EDT [address] [address] OPERATIVE REPORT Name: Kamila Bañuelos Date: 04/05/2024 Time: 1:34 PM Location: OR [facility] Service: General Surgery Date of Operation: 04/05/2024 Pre-op Diagnosis: abdominal mass Post-op Diagnosis: same Surgeon: Ligia Navarro MD Assistants: Harriet Aguirre MD Anesthesia: General endotracheal anesthesia Operation: diagnostic laparoscopy with peritoneal washings, bilateral TAP block Findings: large inflammatory mass causing the stomach, colon and small bowel to be densely adherentto the anterior abdominal wall. Case Acuity: Elective Wound Class: Clean Specimen and Disposition: peritoneal washing Estimated Blood Loss: 5 mL Fluids: per anesthesia record Urine Output: none Drains/Implants: none Complications: none Postoperative Condition: stable Indications and History: This is a 58 year old female with abdominal mass involving her stomach who was transferred from [facility] for concern of gastric perforation on CT scan. She had been undergoing workup for the gastric mass at [facility] and biopsy was suggestive of adenocarcinoma but not conclusive. Repeat CT here with PO contrast did not show any sign of gastric perforation and patient tolerated a regular diet. After discussion with oncology (Dr. Michaels) and surgical oncology (Dr. Harper) it was recommended that peritoneal washings be done and possible further biopsy to allow definitive diagnosis and staging. The risks and benefits of operative intervention including but not limited to: bleeding, infection, injury to surrounding structures, need for multiple operations were discussed with the patient and she elected to proceed. Description of Operation: The patient was seen in the pre-op area and the site of surgery was appropriately marked. They werethen taken to the OR and identified as Kamila Bañuelos [id number]. The procedure was confirmed as diagnosticlaparoscopy with peritoneal washings, possible biopsy and mediport placement. A time out was performed verifying the above information. The patient received antibiotics prior to sedation, with SCDs in place and functioning. The patient was placed supine with the arms out. All pressure points were adequately padded. The patient was sedated and intubated by the anesthesia team. The abdomen was prepped widely and draped in the usual sterile fashion. The abdominal mass could be palpated to have an edge close to the upper boarder of the umbilicus. Therefore an infraumbilical vertical incision was made. The subcutaneous tissue was dissected with S-retractors until the fascia was identified. Two stay sutures of 0 vicryl were placed and elevated. The fascia was then sharply incised. The alen port placed and camera inserted confirming entry in the abdomen. The abdomen was inspected no injury from abdominal entry was noted. We did note that there was a large inflammatory mass which caused the distal stomach, colon and some small bowel to be densely adherent to the anterior abdominal wall in the midline and to the right of midline. There were no obvious peritoneal implants. There were no safe sites of entry in the right abdomen for additional ports due to the adhesions. Two additional 5mm ports were placed in the left abdomen. We then performed a peritoneal lavage with 1L of saline and 700cc was suctioned into a canister and sent for cytology. Dr. Harper was called into the room and agreed that there was not any obvious site of safe biopsy as the inflammatory mass was covered with normal appearing fat and there were several loops of bowel seen to be stuck up to the abdominal wall. TAP block was performed under direct visualization. The ports were then removed under direct visualization and the abdomen allowed to collapse. The infraumbilical port site was closed with a figure of eight 0 vicryl suture. The skin of all port sites was closed with 4-0 monocryl and covered with dermabond. All sponge, needle and instrument counts were correct. Anesthesia was reversed, patient extubate and taken to the PACU in stable condition. Attestation: I was present and scrubbed for the entire procedure documented in this encounter Miscellaneous Notes * Ancillary Progress Note - Tricia Finch RN - 04/06/2024 1:27 PM EDT CARE MANAGEMENT - ADULT DISCHARGE NOTE [address] [address] Name: Kamila Bañuelos Location: [facility]78/A Date: 04/06/2024 Time: 1:28 PM The following coordination of care and discharge plan has been coordinated with the care team, patient, family and/or caregiver according to the patients needs and preferences. Discharge Discharge Was Caregiver/Family/Facility contacted regarding discharge: Yes (04/06/24 1321) Final Discharge Plan (Complete only at time of Discharge): Home - Self Care (04/06/24 1327) Destination - Admitted Since 03/31/2024 No services have been selected for the patient. Narrative: As per service, patient medically stable to discharge. Patient to discharge to home. No CM needs were identified. Patient instructed to reach out to CM with any questions or concerns. * Progress Notes - Non-Billable - Lolis Cabrera CRNP - 04/06/2024 11:51 AM EDT PROGRESS NOTE - General Surgery Discharge Transition [address] [address] Name: Kamila Bañuelos Location: [facility] H678/A Date: 04/06/2024 Time: 11:51 AM Admitting Diagnosis: concern for gastric perforation PROCEDURE: diagnostic laparoscopy with peritoneal washings, bilateral TAP block Estimated Discharge Date: 04/06/2024 Subjective: Kamila was resting in bed comfortably. Tolerating diet, has tolerated a regular diet- denied nausea/vomiting. Incisional pain controlled with current therapy. Ambulating without any difficulty- tells me she walked in the hallway today- feeling much better, pain is less intense today. 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 Voiding without difficulty. (+) flatus. (+0 BM. No Lovenox or antibiotics needed at discharge She will be transported home by her - coming at 1400 Wants new scripts sent to [facility]. Review of Systems: Constitutional: (-) fever, chills, sweats Abdominal/GI: (+) abdominal pain and (-) dysphagia, (-) heartburn, (-) nausea, and (-) vomiting Female : (-) dysuria Most Recent Vital Signs: BP: 155 mmHg/78 mmHg (04/06/24900) Pulse: 64 (04/06/24900) Temp: 36.5 C (04/06/24900) Temp Summary: Temp Min: 36.1 C (97 F) Max: 36.5 C (97.7 F) SpO2: 99 % (04/06/24900) O2 flow rate: 0 L/MIN (04/06/24617) Supplemental O2 Delivery: Room Air, None (04/06/24900) Constitutional: no acute distress Abdomen: soft, slight right sided tenderness to palpation Extremities: no edema, normal ROM, PIV intact Surgical site: Surgical incisions c/d/I without significant erythema or ecchymosis or drainage Dermabond intact Lab and Radiology: Pending results: No results pending Discharge Preparation: Consultation: No pending consultations to be completed Discharge Medication Plans: Pain Management: Vicodon DVT Needs: None GI: None Antibiotics: None Stool Softener: None Anticipated Diet at Discharge: Regular Disposition / Needs Post Discharge: Home Return Appointments Planned: EGS in two weeks- Telelemd, GI referral placed and she see's Oncology on 04/13 Reviewed d/c instructions with patient and answered all patient questions. Patient verbalized understanding and agreed to call if there is any concern. * Progress Notes - Post-Op Global - Bayron Mejia MD - 04/06/2024 4:20 AM EDT PROGRESS NOTE - Trauma/Emergency Surgery [facility] [address] Name: Kamila Bañuelos Location: [facility] H678/A Date: 04/06/2024 Time: 10:17 AM DIAGNOSIS: concern for gastric perforation PROCEDURE: diagnostic laparoscopy with peritoneal washings, bilateral TAP block DATE OF SURGERY: 04/05/24 POST OP DAY: 1 SUBJECTIVE: NAEON, VSS - afebrile, satting well. Tolerating regular diet. Has ambulated. Pain well controlled. Offers no other concerns at this time. OBJECTIVE: Most Recent Vital Signs: BP: 155 mmHg/78 mmHg (04/06/24900) Pulse: 64 (04/06/24900) Temp: 36.5 C (04/06/24900) Temp Summary: Temp Min: 36.1 C (97 F) Max: 36.5 C (97.7 F) SpO2: 99 % (04/06/24900) O2 flow rate: 0 L/MIN (04/06/24617) Supplemental O2 Delivery: Room Air, None (04/06/24900) Vital Signs Last 24 Hours: Systolic BP: Most Recent Systolic BP Av.4 mmHg Min: 141 mmHg Max: 160 mmHg Temperature: Most Recent Temperature Av.3 C Min: 36.11 C Max: 36.5 C Pulse: Pulse Av.4 Min: 60 Max: 90 Respirations: Resp Av Min: 13 Max: 25 SpO2: SpO2 Av.3 % Min: 94 % Max: 99 % In / Out Past 24 Hrs: Intake/Output Summary (Last 24 hours) at 04/06/2024 1017 Last data filed at 04/06/2024 0628 Gross per 24 hour Intake 1144.74 ml Output 300 ml Net 844.74 ml Physical Exam: Constitutional: In no acute distress HEENT: Normocephalic Cardiac: Regular rate PULM: Normal effort, no increased work of breathing on room air Abdomen: Soft, nondistended, not much tenderness to palpation. No rebound tenderness or peritoneal signs. Palpable mass in the midepigastrium extending to the RUQ Surgical incisions: dermabond in place, c/d/i Extremity: No lower extremity edema noted bilaterally, no lower extremity pain noted on palpation. Neuro: Alert and oriented this point LABS: Recent Results (from the past 12 hour(s)) BASIC METABOLIC PANEL Collection Time: 04/06/24 5:02 AM Result Value Ref Range BUN 5 (L) 6 - 20 mg/dL Creatinine 0.5 0.5 - 1.0 mg/dL Estimated Glomerular Filtration Rate >90 >=60 mL/min Sodium 143 135 - 146 mmol/L Potassium 4.2 3.5 - 5.1 mmol/L Chloride 106 98 - 107 mmol/L CO2 25 22 - 32 mmol/L Anion Gap 12 7 - 15 mmol/L Glucose 138 (H) 70 - 120 mg/dL Calcium 9.1 8.4 - 10.2 mg/dL CBC Collection Time: 04/06/24 5:02 AM Result Value Ref Range WBC 14.59 (H) 4.00 - 10.80 K/uL RBC 3.53 3.85 - 5.15 M/uL HGB 10.3 (L) 12.0 - 15.3 g/dL HCT 33.0 (L) 36.0 - 45.2 % MCV 93.5 81.5 - 97.5 fL MCH 29.2 27.0 - 34.0 pg MCHC 31.2 32.0 - 36.0 g/dL RDW 14.0 11.5 - 15.5 % PLT 355 140 - 400 K/uL MPV 9.5 6.6 - 11.1 fL nRBCs 0 <=0 /100 WBCs MAGNESIUM Collection Time: 04/06/24 5:02 AM Result Value Ref Range Magnesium 2.5 1.5 - 2.6 mg/dL PHOSPHORUS Collection Time: 04/06/24 5:02 AM Result Value Ref Range Phosphorus 3.6 2.5 - 4.8 mg/dL IMAGING: No imaging results in the last 24 hours' IMPRESSION and PLAN: Principal Problem: Abdominal pain, epigastric Active Problems: Gastric adenocarcinoma (HCC) HTN (hypertension) 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 * Patient is a 50-year-old female presenting as a transfer from [facility] for possible gastric antral perforation in the setting of suspected gastric cancer. She is now s/p diagnostic laparoscopy and abdominal washout 04/05. Unable to obtain tissue biopsy given extensive inflammation at the suspected abdominal mass. She is otherwise doing well post op. Pain well controlled. Incisions c/d/I. All questions and concerns answered w/patient's partner at bedside. She says she would like to f/u with her workup here at [facility], but if surgery were warranted shewould like to f/u with her brother's friend who is a surgical oncologist at [facility]. - Patient will still need tissue biopsy for definitive diagnosis after resolution of inflammatory process in a few weeks - Will plan for f/u with med onc outpatient. She has appt with Dr. Candelaria 04/13 - Placed GI referral for poss tissue biopsy via EUS - Pain: Tylenol, Soma PRN, dilaudid PRN - ABX: diflucan and zosyn - GI nutrition: Regular diet - GI ppx: IV PPI - DVT: SCD, lovenox - Home Meds: on metoprolol DISPO: med surg, discharge 04/06 Patient to be discussed with Dr. Navarro. Bayron Mejia MD General Surgery PGY-1 04/06/2024 10:17 AM Associated attestation - Ligia Navarro MD - 04/06/2024 2:53 PM EDT I saw and evaluated the patient today. I have reviewed the trainee note and agree. 58 year old female with likely gastric adenocarcinoma transferred after possible perforation. CT with PO contrast did not show any evidence of perforation. She has been tolerating a regular diet. S/p diagnostic laparoscopy with peritoneal washings 04/05 Doing well this morning. Tolerated a regular diet. Pain well controlled. BP 137/73 | Pulse 62 | Temp 36.5 C (97.7 F) (Oral) | Resp 16 | Ht 1.727 m (5' 8") | Wt 91.6 kg (202 lb) | SpO2 98% | BMI 30.71 kg/m | BSA 2.1 m GEN: NAD, sitting up in bed. HENT: MMM, trachea midline, no scleral icterus CHEST: breathing comfortably on RA, symmetric chest rise ABD: soft, appropriately tender, nondistended, no rebound/guarding. Palpable mass in epigastrium/RUQ. Incisions c/d/I. EXT: WWP Plan: -ok for d/c today. -pt will f/u with GI for EGD for further tissue biopsy. Discharge time: 35 minutes Ligia Navarro MD Trauma and General Surgery Critical Care * Progress Notes - Non-Billable - Harriet Aguirre MD - 04/05/2024 3:58 PM EDT PROGRESS NOTE - Trauma/Emergency Surgery [facility]-[address] [address] Name: Kamila Bañuelos Location: [facility] H678/A Date: 04/05/2024 Time: 3:58 PM DIAGNOSIS: concern for gastric perforation PROCEDURE: diagnostic laparoscopy with peritoneal washings, bilateral TAP block DATE OF SURGERY: 04/05/24 POST OP DAY: 0 SUBJECTIVE: NAEON, VSS - afebrile, satting well. Doing well post op. Tolerating Diet. Has ambulated. Pain well controlled. Patient and her partner had questions regarding her care. All questions answered to patient's satisfaction OBJECTIVE: Most Recent Vital Signs: BP: 160 mmHg/87 mmHg (04/05/24 154) Pulse: 76 (04/05/24 154) Temp: 36.11 C (04/05/24 154) Temp Summary: Temp Min: 36.1 C (97 F) Max: 37.5 C (99.5 F) SpO2: 94 % (04/05/24 154) O2 flow rate: 2 L/MIN (04/05/24 1349) Supplemental O2 Delivery: Room Air, None (04/05/24 154) Vital Signs Last 24 Hours: Systolic BP: Most Recent Systolic BP Av.6 mmHg Min: 125 mmHg Max: 160 mmHg Temperature: Most Recent Temperature Av.7 C Min: 36.11 C Max: 37.5 C Pulse: Pulse Av.1 Min: 68 Max: 93 Respirations: Resp Av.4 Min: 13 Max: 25 SpO2: SpO2 Av.4 % Min: 94 % Max: 99 % In / Out Past 24 Hrs: Intake/Output Summary (Last 24 hours) at 04/05/2024 1558 Last data filed at 04/05/2024 1214 Gross per 24 hour Intake 1304.47 ml Output 300 ml Net 1004.47 ml Physical Exam: Constitutional: In no acute distress HEENT: Normocephalic Cardiac: Regular rate PULM: Normal effort, no increased work of breathing on room air Abdomen: Soft, nondistended, not much tenderness to palpation. No rebound tenderness or peritoneal signs. Palpable mass in the midepigastrium extending to the RUQ Surgical incisions: dermabond in place, c/d/i Extremity: No lower extremity edema noted bilaterally, no lower extremity pain noted on palpation. Neuro: Alert and oriented this point LABS: No results found for this or any previous visit (from the past 12 hour(s)). 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 * Patient is a 50-year-old female presenting as a transfer from [facility] for possible gastric antral perforation in the setting of suspected gastric cancer. She is now s/p diagnostic laparoscopy and abdominal washout 04/05. Unable to obtain tissue biopsy given extensive inflammation at the suspected abdominal mass. She is otherwise doing well post op. Pain well controlled. Incisions c/d/I. All questions and concerns answered w/patient's partner at bedside. She says she would like to f/u with her workup here at [facility], but if surgery were warranted shewould like to f/u with her brother's friend who is a surgical oncologist at [facility]. - Patient will still need tissue biopsy for definitive diagnosis after resolution of inflammatory process in a few weeks - Will plan for f/u with med onc outpatient. She has appt with Dr. Candelaria 04/13 - Will make GI referral for poss tissue biopsy via EUS - Pain: Tylenol, Soma PRN, dilaudid PRN - ABX: diflucan and zosyn - GI nutrition: Regular diet - GI ppx: IV PPI - DVT: SCD, lovenox - Home Meds: on metoprolol DISPO: med surg, poss DC 04/06 * Ancillary Progress Note - Tricia Finch RN - 04/05/2024 2:21 PM EDT CARE MANAGEMENT - ADULT TRANSITION NOTE [facility] [address] Name: Kamila Bañuelos Location: [facility] H678/A Date: 04/05/2024 Time: 2:21 PM Risk Stratification Readmission Risk Score: 11.46 (04/05/24 1201) AM-PAC Score With Stairs : 23 (04/05/24 1357) Caregiver Information Patient Contacts Name Relation Home Work Mobile Chad Bañuelos Spouse [phone] Transition of Care Checklist Transition of Care Checklist (aka Readmission Risk Score) Discharge Disposition: Home (04/05/241419) Narrative: Patient discussed at IDT rounds, and per chart review, patient not medically stable for discharge. Plan for OR today for diagnostic lap and possible mediport placement. No anticipated discharge date. CM will continue to follow. Anticipated Transportation at Discharge: family Patient/Family Expectations: return home Transition Planning Transition Planning Transition Plan/Considerations: Discussed at Interdisciplinary Team / Boost Rounds (04/05/241419) Repisodic Choice provided to patient: No (04/05/241419) Transition plan discussed with - Enter name and phone #: with service at IDT rounds (04/05/241419) Insurance Considerations: N/A (04/05/241419) Referral to Community Agency : N/A (04/05/241419) Post-Acute Care needs identified and Referrals Completed: N/A (04/05/241419) Additional Considerations: Care Management will continue to monitor and assist with discharge planning needs * Care Plan - Johny Thompson RN - 04/05/2024 3:21 AM EDT Clinical Goal(s): Pt will have restfull sleep (04/05/24 0000) Possible barriers to meeting goal(s)/advancing plan of care: Dx., ineffective coping Stability of the patient: Moderately stable - low risk of patient condition declining or worsening Summary regarding today's goal(s): Met: Pt is sleeping comfortably Recommendations: Continue care plan * Care Plan - Sandi Anthony RN - 04/04/2024 4:48 PM EDT Clinical Goal(s): pt will remain fall free during this admission. (04/04/24 0700) Possible barriers to meeting goal(s)/advancing plan of care: acuity of illness Stability of the patient: Moderately stable - low risk of patient condition declining or worsening Summary regarding today's goal(s): Met: pt remained fall free during shift Recommendations: on going evaluation * Ancillary Progress Note - Tricia Finch RN - 04/04/2024 3:02 PM EDT CARE MANAGEMENT - ADULT TRANSITION NOTE [facility] [address] Name: Kamila Bañuelos Location: [facility] H678/A Date: 04/04/2024 Time: 3:02 PM Risk Stratification Readmission Risk Score: 10.91 (04/04/24 1200) AM-PAC Score With Stairs : 23 (04/04/24 0800) Caregiver Information Patient Contacts Name Relation Home Work Mobile Chad Bañuelos Spouse [phone] Transition of Care Checklist Transition of Care Checklist (aka Readmission Risk Score) Discharge Disposition: Home (04/04/24 1501) Narrative: Patient discussed at IDT rounds, and per chart review, patient not medically stable for discharge. Presented on 03/31/2024 as a transfer from [facility] for possible gastric antral perforation in the setting of newly diagnosed gastric adenocarcinoma. NGT removed yesterday. IR consultedfor port placement. No anticipated discharge date. CM will continue to follow. Anticipated Transportation at Discharge: family Patient/Family Expectations: return home Transition Planning Transition Planning Transition Plan/Considerations: Discussed at Interdisciplinary Team / Boost Rounds (04/04/24 1501) Repisodic Choice provided to patient: No (04/04/24 1501) Transition plan discussed with - Enter name and phone #: with servie at IDT rounds (04/04/24 1501) Insurance Considerations: N/A (04/04/24 1501) Referral to Community Agency : N/A (04/04/24 150) Post-Acute Care needs identified and Referrals Completed: N/A (04/04/24 150) Additional Considerations: Care Management will continue to monitor and assist with discharge planning needs * Care Plan - Sheba Garvin RN - 04/04/2024 1:08 AM EDT Problem: Safety & Risk for Injury Goal: Patient will remain free from injury. Outcome: Progressing Problem: Daily Care & Potential Self-Care Deficit Goal: Patient's daily care needs are met. Outcome: Progressing Problem: Risk for Impaired Physical Mobility Goal: Patient will maintain optimal mobility level. Outcome: Progressing Problem: Knowledge Deficit Goal: Patient & caregiver will demonstrate understanding. Outcome: Progressing Problem: Discharge Barriers Goal: Patient's discharge needs are met. Outcome: Progressing Problem: Actual & Potential for Falls Goal: Patient will remain free of falls. Outcome: Progressing Clinical Goal(s): PT will remain free from injury for entire shift, (04/04/24 0013) Possible barriers to meeting goal(s)/advancing plan of care: Pain, recent diagnosis cx, pain Stability of the patient: Moderately stable - low risk of patient condition declining or worsening Summary regarding today's goal(s): Met: PT remains free from injury. Recommendations: Continue hourly rounds, keep pt belongings and call bender within reach, continue plan of care. * Care Plan - Maria D Geller RN - 04/03/2024 6:20 PM EDT Problem: Pain & Impaired Comfort Goal: Patient's pain & discomfort is manageable. Outcome: Progressing Problem: Safety & Risk for Injury Goal: Patient will remain free from injury. Outcome: Progressing Problem: Risk for Impaired Physical Mobility Goal: Patient will maintain optimal mobility level. Outcome: Progressing Problem: Actual & Potential for Falls Goal: Patient will remain free of falls. Outcome: Progressing Clinical Goal(s): Patient will remain free from falls this shift (04/03/24 0811) Possible barriers to meeting goal(s)/advancing plan of care: weakness, pain Stability of the patient: Moderately stable - low risk of patient condition declining or worsening Summary regarding today's goal(s): Met: patient remained free from falls this shift Recommendations: continue fall precautions, manage pain, assist patient as needed * Care Plan - Elizabeth Floyd RN - 04/03/2024 4:13 AM EDT Problem: Pain & Impaired Comfort Goal: Patient's pain & discomfort is manageable. Outcome: Progressing Problem: Safety & Risk for Injury Goal: Patient will remain free from injury. Outcome: Progressing Problem: Daily Care & Potential Self-Care Deficit Goal: Patient's daily care needs are met. Outcome: Progressing Problem: Risk for Impaired Physical Mobility Goal: Patient will maintain optimal mobility level. Outcome: Progressing Problem: Knowledge Deficit Goal: Patient & caregiver will demonstrate understanding. Outcome: Progressing Problem: Discharge Barriers Goal: Patient's discharge needs are met. Outcome: Progressing Problem: Actual & Potential for Falls Goal: Patient will remain free of falls. Outcome: Progressing Problem: Risk for Infection & Contamination Goal: Staff & visitors will prevent transmission of infection. Outcome: Progressing Problem: Risk for Social Isolation Goal: Patient will be free of S&S of depression & social isolation. Outcome: Progressing Clinical Goal(s): Pt will be free from falls/injuries for this shift (04/02/24 1900) Possible barriers to meeting goal(s)/advancing plan of care: worsening in condition/disease process Stability of the patient: Moderately stable - low risk of patient condition declining or worsening Summary regarding today's goal(s): Met: Pt remained free from falls/injuries for this shift Recommendations: To maintain all fall/safety protocol * Care Plan - Maria D Geller RN - 04/02/2024 6:44 PM EDT Problem: Pain & Impaired Comfort Goal: Patient's pain & discomfort is manageable. Outcome: Progressing Problem: Safety & Risk for Injury Goal: Patient will remain free from injury. Outcome: Progressing Problem: Risk for Impaired Physical Mobility Goal: Patient will maintain optimal mobility level. Outcome: Progressing Problem: Actual & Potential for Falls Goal: Patient will remain free of falls. Outcome: Progressing Clinical Goal(s): Patient will remain free from falls this shift (04/02/24 0800) Possible barriers to meeting goal(s)/advancing plan of care: weakness, pain, NGT Stability of the patient: Moderately stable - low risk of patient condition declining or worsening Summary regarding today's goal(s): Met: patient remained free from falls this shift Recommendations: continue fall precautions, manage pain, assist patient as needed * Progress Notes - Non-Billable - Bayron Mejia MD - 04/01/2024 1:01 PM EDT Brief Emergency General Surgery Note: Notified by nursing that patient had an episode of emesis. Repeat KUB was ordered at that time and showed a properly positioned NGT. Patient was evaluated at bedside and states that she only vomited because she gagged on the NG tube and not because she was nauseated. Patient states she felt immediately better after vomiting. She did receive a dose of Zofran. NG tube was flushed with normal saline. Decreased output compared to yesterday, but the NGT is still functional. No evidence of obstruction. Patient is nontender to palpation, soft, mildly distended but unchanged from previous exams. Patient encouraged to use Chloraseptic spray to help with the irritation caused by the tube. Bayron Mejia MD General Surgery PGY-1 04/01/2024 1:06 PM * Care Plan - Johny Thompson RN - 04/01/2024 4:37 AM EDT Clinical Goal(s): pt will report improved nausea (04/01/24 0000) Possible barriers to meeting goal(s)/advancing plan of care: Dx Stability of the patient: Moderately stable - low risk of patient condition declining or worsening Summary regarding today's goal(s): Met: Reported no nausea Recommendations: NG LIS for decomp, NPO. Continue care plan * Ancillary Progress Note - Kaci Harding RRT - 03/31/2024 5:15 PM EDT PATIENT DRIVEN PROTOCOL - Respiratory Care Services [address] [address] Name: Kamila Bañuelos Location: [facility] H678/A Date: 03/31/2024 Time: 5:15 PM Patient Driven Protocol Summary: Initial evaluation performed. This Treatment Plan and medications will be reviewed by the Primary Care Team for any contraindications. Respiratory Care Treatment Plan Pulmonary Volume Expansion Therapy: Incentive Spirometry PRN to prevent or treat alveolar consolidation and atelectasis. The patient will be re-evaluated: No re-evaluation needed. Indications for treatment met. The Triage Level is: (Assessment Score = 0 - 5) Level 5. Triage Level Definitions: Level 1 Severe Respiratory/Airway Compromise Level 2 Moderate Respiratory/Airway Compromise or high risk for pulmonary complications Level 3 Mild Respiratory/Airway Compromise or moderate risk for pulmonary complications Level 4 Episodic Respiratory/Airway Compromise or low risk for pulmonary complications Level 5 No Respiratory/Airway Compromise Triage 1 Triage 2 Triage 3 Triage 4 Triage 5 greater than 20 16 - 20 11 - 15 6 - 10 0 - 5 Medical Record Assessment Clinical Findings Pulmonary Status: 0 - No History Surgical Status This Admission: 0 - No Surgical History Chest X-Ray: 0 - Not Performed or performed greater than 3 days ago Assessment Score: 0 Patient Assessment Clinical Findings Respiratory Pattern: 0 - RR 12 - 20; Patient only gets breathless with strenuous exercise. Breath Sounds: 0 - Clear to auscultation Cough Effectiveness: 0 - Strong non-productive Sputum Production: 0 - No sputum production Level of Activity: 1 - Ambulatory with assist O2 needed to keep SpO2 greater than or equal to 92%: 0 - Room Air Assessment Score: 1 Total Assessment Score: 1 Breath Sounds: Inspiratory and expiratory clear bilaterally. Cough and Sputum: An effective cough produced no sputum.. CXR: n/a. Vital Signs: Resp: 16 (03/31/24931) Pulse: 87 (03/31/24931) Temp: 36.7 C (98.1 F) (03/31/24931) BP: 135/59 (03/31/24931) SpO2: 96 % (03/31/24931) PFT: Minimal Predicted IC: 0.963 L. Inspiratory capacity: 1 L. Primary Service: Surgery [place]. Admitting Diagnosis: Perforated stomach (HCC) [K25.5] Gastric perforation (HCC) [K25.5] Pulmonary Diagnosis: HTN Respiratory Prescriptions/Home Medications/Durable Medical Equipment: HTN. Recommended New home medications/durable medical equipment/outpatient pulmonary/sleep referral: TBD. documented in this encounter Plan of Treatment Upcoming Encounters Date Type Department Care Team (Late st Contact Info) Description 04/13/2024 12:15 PM EDT Office Visit Hematology/Oncology [facility] Jessica [place] [address] [facility] [place] [id number] Howie Candelaria MD [address] [facility] [place] [address] 04/19/2024 3:45 PM EDT [facility] [place] [address] [place] [address] Clinic, Emergency General Surgery [place] [address] Pending Results Name Type Priority Associated Diagnoses Date /Time CYTOLOGY Pathology STAT Gastric mass 04/05/2024 11:48 AM EDT Scheduled Orders Name Type Priority Associated Diagnoses Order Schedule STREP A SCREEN, POINT OF CARE (ENTER/EDIT) Point of Care Testing Routine One Time for 1 Occurrences starting 04/02/2024 until 04/02/2024 IR VENOUS ACCESS MEDIPORT Medical Imaging Routine One Time for 1 Occurrences starting 04/03/2024 until 04/03/2024 CYTOLOGY Pathology Routine Gastric mass Release Upon Ordering for 1 Occurrences starting 04/05/2024, 1 completed Scheduled Referrals Name Type Priority Associated Diagnoses Orde r Schedule UPPER ENDOSCOPY SURGERY REFERRAL OP Referral Within 10 days (routine) Gastric mass Ordered: 04/06/2024 Health Maintenance Due Date Last Done Comments [...] Procedure Name Priority Date/Time Associated Diagnosis Comments BASIC METABOLIC PANEL Routine 04/06/2024 5:02 AM EDT PHOSPHORUS Routine 04/06/2024 5:02 AM EDT CBC Routine 04/06/2024 5:02 AM EDT MAGNESIUM Routine 04/06/2024 5:02 AM EDT Laparoscopy Diagnostic 04/05/2024 10:00 AM EDT Gastric mass BASIC METABOLIC PANEL Routine 04/05/2024 3:31 AM EDT TYPE AND SCREEN Routine 04/05/2024 3:31 AM EDT PHOSPHORUS Routine 04/05/2024 3:31 AM EDT CBC Routine 04/05/2024 3:31 AM EDT MAGNESIUM Routine 04/05/2024 3:31 AM EDT BASIC METABOLIC PANEL Routine 04/04/2024 6:55 AM EDT PHOSPHORUS Routine 04/04/2024 6:55 AM EDT CBC Routine 04/04/2024 6:55 AM EDT MAGNESIUM Routine 04/04/2024 6:55 AM EDT BASIC METABOLIC PANEL Routine 04/03/2024 6:12 AM EDT PHOSPHORUS Routine 04/03/2024 6:12 AM EDT MAGNESIUM Routine 04/03/2024 6:12 AM EDT CBC Routine 04/03/2024 6:11 AM EDT GROUP A STREP PCR Routine 04/03/2024 2:2 7 AM EDT GROUP A STREP RAPID THROAT Routine 04/03/2024 2:27 AM EDT RESPIRATORY PATHOGEN PANEL, PCR STAT 04/03/2024 1:11 AM EDT XR ABDOMEN 1 VIEW Routine 04/02/2024 2:5 4 PM EDT BASIC METABOLIC PANEL Routine 04/02/2024 6:17 AM EDT PHOSPHORUS Routine 04/02/2024 6:17 AM EDT CBC Routine 04/02/2024 6:17 AM EDT MAGNESIUM Routine 04/02/2024 6:17 AM EDT XR ABDOMEN 1 VIEW Routine 04/02/2024 2:5 0 AM EDT XR ABDOMEN 1 VIEW STAT 04/01/2024 12: 44 PM EDT BASIC METABOLIC PANEL Routine 04/01/2024 5:49 AM EDT PHOSPHORUS Routine 04/01/2024 5:49 AM EDT CBC Routine 04/01/2024 5:49 AM EDT MAGNESIUM Routine 04/01/2024 5:[address] ABD/PELVIS WO IV CONTRAST - W ORAL CONTRAST STAT 03/31/2024 6:47 PM EDT XR ABDOMEN 1 VIEW Routine 03/31/2024 11: 13 AM EDT XR ABDOMEN 1 VIEW STAT 03/31/2024 11: 12 AM EDT DIFFERENTIAL, AUTOMATED STAT 03/31/2024 10:08 AM EDT BASIC METABOLIC PANEL STAT 03/31/2024 10:08 AM EDT ABO/RH STAT 03/31/2024 10:08 AM EDT TYPE AND SCREEN STAT 03/31/2024 10:08 AM EDT CBC STAT 03/31/2024 10:08 AM EDT LACTATE STAT 03/31/2024 10:08 AM EDT CBC STAT 03/31/2024 10:08 AM EDT documented in this encounter Results * PHOSPHORUS (04/06/2024 5:02 AM EDT) Phosphorus 3.6 2.5 - 4.8 mg/dL 04/06/2024 6:06 AM EDT LABORATORY [facility] Blood Venous blood specimen / Unknown Venipuncture / Unknown 04/06/2024 5:02 AM EDT 04/06/2024 5:33 AM EDT Bayron Mejia MD LAB BLOOD OR DERABLES LABORATORY [facility] [address] [place] [address] * MAGNESIUM (04/06/2024 5:02 AM EDT) Magnesium 2.5 1.5 - 2.6 mg/dL 04/06/2024 6:06 AM EDT LABORATORY [facility] Blood Venous blood specimen / Unknown Venipuncture / Unknown 04/06/2024 5:02 AM EDT 04/06/2024 5:33 AM EDT Bayron Mejia MD LAB BLOOD OR DERABLES LABORATORY [facility] [address] [place] [address] * (ABNORMAL) CBC (04/06/2024 5:02 AM EDT) WBC 14.59(H) 4.00 - 10.80 K/uL 04/06/2024 5:43 AM EDT LABORATORY [facility] RBC 3.53 3.85 - 5.15 M/uL 04/06/2024 5:43 AM EDT LABORATORY [facility] HGB 10.3(L) 12.0 - 15.3 g/dL 04/06/2024 5:43 AM EDT LABORATORY [facility] HCT 33.0(L) 36.0 - 45.2 % 04/06/2024 5:43 AM EDT LABORATORY [facility] MCV 93.5 81.5 - 97.5 fL 04/06/2024 5:43 AM EDT LABORATORY [facility] MCH 29.2 27.0 - 34.0 pg 04/06/2024 5:43 AM EDT LABORATORY [facility] MCHC 31.2 32.0 - 36.0 g/dL 04/06/2024 5:43 AM EDT LABORATORY [facility] RDW 14.0 11.5 - 15.5 % 04/06/2024 5:43 AM EDT LABORATORY [facility] PLT 355 140 - 400 K/uL 04/06/2024 5:43 AM EDT LABORATORY [facility] MPV 9.5 6.6 - 11.1 fL 04/06/2024 5:43 AM EDT LABORATORY [facility] nRBCs 0 <=0 /100 WBCs 04/06/2024 5:43 AM EDT LABORATORY [facility] Blood Venous blood specimen / Unknown Venipuncture / Unknown 04/06/2024 5:02 AM EDT 04/06/2024 5:33 AM EDT Bayron Mejia MD LAB BLOOD OR DERABLES LABORATORY [facility] [address] [place] [address] * (ABNORMAL) BASIC METABOLIC PANEL (04/06/2024 5:02 AM EDT) BUN 5(L) 6 - 20 mg/dL 04/06/2024 6:06 AM EDT LABORATORY [facility] Creatinine 0.5 0.5 - 1.0 mg/dL 04/06/2024 6:06 AM EDT LABORATORY [facility] Estimated Glomerular Filtration Rate >90 >=60 mL/min 04/06/2024 6:06 AM EDT LABORATORY C Comment:eGFR is calculated b ased on the CKD-EPI 2020 equation Sodium 143 135 - 146 mmol/L 04/06/2024 6:06 AM EDT LABORATORY [facility] Potassium 4.2 3.5 - 5.1 mmol/L 04/06/2024 6:06 AM EDT LABORATORY [facility] Chloride 106 98 - 107 mmol/L 04/06/2024 6:06 AM EDT LABORATORY [facility] CO2 25 22 - 32 mmol/L 04/06/2024 6:06 AM EDT LABORATORY C Anion Gap 12 7 - 15 mmol/L 04/06/2024 6:06 AM EDT LABORATORY C Glucose 138(H) 70 - 120 mg/dL 04/06/2024 6:06 AM EDT LABORATORY C Calcium 9.1 8.4 - 10.2 mg/dL 04/06/2024 6:06 AM EDT LABORATORY [facility] Blood Venous blood specimen / Unknown Venipuncture / Unknown 04/06/2024 5:02 AM EDT 04/06/2024 5:33 AM EDT Bayron Mejia MD LAB BLOOD OR DERABLES LABORATORY [facility] [address] [place] [address] * TYPE AND SCREEN (04/05/2024 3:31 AM EDT) ABO A 04/05/2024 4:47 AM EDT LABORATORY [facility] BLOOD BANK Rh Positive 04/05/2024 4:47 AM EDT LABORATORY [facility] BLOOD BANK Red Blood Cell Antibody Screen Negative 04/05/2024 4:47 AM EDT LABORATORY [facility] BLOOD BANK Specimen Expiration Date 04/08/2024 23:59 04/05/2024 4:47 AM EDT LABORATORY [facility] BLOOD BANK Blood Venous blood specimen / Unknown Venipuncture / Unknown 04/05/2024 3:31 AM EDT 04/05/2024 3:41 AM EDT Rishi Negro MD LAB BLOOD BANK TEST ORDERABLES Performing Organization Address [facility] Co de Phone Number LABORATORY [facility] BLOOD BANK [address] [place] [address] * PHOSPHORUS (04/05/2024 3:31 AM EDT) Phosphorus 3.4 2.5 - 4.8 mg/dL 04/05/2024 4:10 AM EDT LABORATORY [facility] Blood Venous blood specimen / Unknown Venipuncture / Unknown 04/05/2024 3:31 AM EDT 04/05/2024 3:41 AM EDT Bayron Mejia MD LAB BLOOD OR DERABLES Performing Organization Address [facility] de Phone Number LABORATORY [facility] [address] [place] [address] * MAGNESIUM (04/05/2024 3:31 AM EDT) Magnesium 1.8 1.5 - 2.6 mg/dL 04/05/2024 4:10 AM EDT LABORATORY C Blood Venous blood specimen / Unknown Venipuncture / Unknown 04/05/2024 3:31 AM EDT 04/05/2024 3:41 AM EDT Bayron Mejia MD LAB BLOOD OR DERABLES Performing Organization Address [facility] de Phone Number LABORATORY [facility] [address] [place] [address] * (ABNORMAL) CBC (04/05/2024 3:31 AM EDT) WBC 14.28(H) 4.00 - 10.80 K/uL 04/05/2024 3:52 AM EDT LABORATORY [facility] RBC 3.17 3.85 - 5.15 M/uL 04/05/2024 3:52 AM EDT LABORATORY [facility] HGB 9.4(L) 12.0 - 15.3 g/dL 04/05/2024 3:52 AM EDT LABORATORY [facility] HCT 29.1(L) 36.0 - 45.2 % 04/05/2024 3:52 AM EDT LABORATORY [facility] MCV 91.8 81.5 - 97.5 fL 04/05/2024 3:52 AM EDT LABORATORY [facility] MCH 29.7 27.0 - 34.0 pg 04/05/2024 3:52 AM EDT LABORATORY [facility] MCHC 32.3 32.0 - 36.0 g/dL 04/05/2024 3:52 AM EDT LABORATORY [facility] RDW 14.0 11.5 - 15.5 % 04/05/2024 3:52 AM EDT LABORATORY [facility] PLT 265 140 - 400 K/uL 04/05/2024 3:52 AM EDT LABORATORY [facility] MPV 9.2 6.6 - 11.1 fL 04/05/2024 3:52 AM EDT LABORATORY [facility] nRBCs 0 <=0 /100 WBCs 04/05/2024 3:52 AM EDT LABORATORY G[facility] Blood Venous blood specimen / Unknown Venipuncture / Unknown 04/05/2024 3:31 AM EDT 04/05/2024 3:41 AM EDT Bayron Mejia MD LAB BLOOD OR DERABLES LABORATORY [facility] [address] [place] [address] * BASIC METABOLIC PANEL (04/05/2024 3:31 AM EDT) [facility] BUN 6 6 - 20 mg/dL 04/05/2024 4:10 AM EDT LABORATORY GMC Creatinine 0.6 0.5 - 1.0 mg/dL 04/05/2024 4:10 AM EDT LABORATORY G[facility] Estimated Glomerular Filtration Rate >90 >=60 mL/min 04/05/2024 4:10 AM EDT LABORATORY G[facility] Comment:eGFR is calculated b ased on the CKD-EPI 2020 equation Sodium 136 135 - 146 mmol/L 04/05/2024 4:10 AM EDT LABORATORY [facility] Potassium 3.5 3.5 - 5.1 mmol/L 04/05/2024 4:10 AM EDT LABORATORY [facility] Chloride 102 98 - 107 mmol/L 04/05/2024 4:10 AM EDT LABORATORY [facility] CO2 24 22 - 32 mmol/L 04/05/2024 4:10 AM EDT LABORATORY [facility] Anion Gap 10 7 - 15 mmol/L 04/05/2024 4:10 AM EDT LABORATORY [facility] Glucose 110 70 - 120 mg/dL 04/05/2024 4:10 AM EDT LABORATORY G[facility] Calcium 8.5 8.4 - 10.2 mg/dL 04/05/2024 4:10 AM EDT LABORATORY [facility] Blood Venous blood specimen / Unknown Venipuncture / Unknown 04/05/2024 3:31 AM EDT 04/05/2024 3:41 AM EDT Bayron Mejia MD LAB BLOOD OR DERABLES Performing Organization Address City/[facility]/ZIP Co de Phone Number LABORATORY [facility] [address] [place] [address] * PHOSPHORUS (04/04/2024 6:55 AM EDT) Phosphorus 2.7 2.5 - 4.8 mg/dL 04/04/2024 7:49 AM EDT LABORATORY [facility] Blood Venous blood specimen / Unknown Venipuncture / Unknown 04/04/2024 6:55 AM EDT 04/04/2024 7:21 AM EDT Bayron Mejia MD LAB BLOOD OR DERABLES LABORATORY [facility] [address] [place] [address] * MAGNESIUM (04/04/2024 6:55 AM EDT) Magnesium 1.9 1.5 - 2.6 mg/dL 04/04/2024 7:49 AM EDT LABORATORY C Blood Venous blood specimen / Unknown Venipuncture / Unknown 04/04/2024 6:55 AM EDT 04/04/2024 7:21 AM EDT Bayron Mejia MD LAB BLOOD OR DERABLES LABORATORY [facility] [address] [place] [address] * (ABNORMAL) CBC (04/04/2024 6:55 AM EDT) WBC 16.25(H) 4.00 - 10.80 K/uL 04/04/2024 7:33 AM EDT LABORATORY [facility] RBC 3.26 3.85 - 5.15 M/uL 04/04/2024 7:33 AM EDT LABORATORY [facility] HGB 9.6(L) 12.0 - 15.3 g/dL 04/04/2024 7:33 AM EDT LABORATORY [facility] HCT 29.8(L) 36.0 - 45.2 % 04/04/2024 7:33 AM EDT LABORATORY [facility] MCV 91.4 81.5 - 97.5 fL 04/04/2024 7:33 AM EDT LABORATORY [facility] MCH 29.4 27.0 - 34.0 pg 04/04/2024 7:33 AM EDT LABORATORY [facility] MCHC 32.2 32.0 - 36.0 g/dL 04/04/2024 7:33 AM EDT LABORATORY [facility] RDW 13.9 11.5 - 15.5 % 04/04/2024 7:33 AM EDT LABORATORY [facility] PLT 320 140 - 400 K/uL 04/04/2024 7:33 AM EDT LABORATORY [facility] MPV 9.2 6.6 - 11.1 fL 04/04/2024 7:33 AM EDT LABORATORY [facility] nRBCs 0 <=0 /100 WBCs 04/04/2024 7:33 AM EDT LABORATORY [facility] Blood Venous blood specimen / Unknown Venipuncture / Unknown 04/04/2024 6:55 AM EDT 04/04/2024 7:21 AM EDT Bayron Mejia MD LAB BLOOD OR DERABLES LAB[facility]ATORY [facility] [address] [place] [address] * (ABNORMAL) BASIC METABOLIC PANEL (04/04/2024 6:55 AM EDT) BUN 9 6 - 20 mg/dL 04/04/2024 7:48 AM EDT LABORATORY [facility] Creatinine 0.5 0.5 - 1.0 mg/dL 04/04/2024 7:48 AM EDT LABORATORY [facility] Estimated Glomerular Filtration Rate >90 >=60 mL/min 04/04/2024 7:48 AM EDT LABORATORY [facility] Comment:eGFR is calculated b ased on the CKD-EPI 2020 equation Sodium 135 135 - 146 mmol/L 04/04/2024 7:48 AM EDT LABORATORY [facility] Potassium 3.3(L) 3.5 - 5.1 mmol/L 04/04/2024 7:48 AM EDT LABORATORY [facility] Chloride 100 98 - 107 mmol/L 04/04/2024 7:48 AM EDT LABORATORY [facility] CO2 19(L) 22 - 32 mmol/L 04/04/2024 7:48 AM EDT LABORATORY [facility] Anion Gap 16(H) 7 - 15 mmol/L 04/04/2024 7:48 AM EDT LABORATORY [facility] Glucose 114 70 - 120 mg/dL 04/04/2024 7:48 AM EDT LABORATORY [facility] Calcium 8.7 8.4 - 10.2 mg/dL 04/04/2024 7:48 AM EDT LABORATORY [facility] Blood Venous blood specimen / Unknown Venipuncture / Unknown 04/04/2024 6:55 AM EDT 04/04/2024 7:21 AM EDT Bayron Mejia MD LAB BLOOD OR DERABLES LABORATORY [facility] [address] [place] [address] * PHOSPHORUS (04/03/2024 6:12 AM EDT) Phosphorus 2.9 2.5 - 4.8 mg/dL 04/03/2024 8:04 AM EDT LABORATORY [facility] Blood Venous blood specimen / Unknown Venipuncture / Unknown 04/03/2024 6:12 AM EDT 04/03/2024 6:39 AM EDT Bayron Mejia MD LAB BLOOD OR DERABLES Performing Organization Address City/[facility]/ZIP Co de Phone Number LABORATORY [facility] [address] [place] [address] * MAGNESIUM (04/03/2024 6:12 AM EDT) Magnesium 2.0 1.5 - 2.6 mg/dL 04/03/2024 8:04 AM EDT LABORATORY [facility] Blood Venous blood specimen / Unknown Venipuncture / Unknown 04/03/2024 6:12 AM EDT 04/03/2024 6:39 AM EDT Bayron Mejia MD LAB BLOOD OR DERABLES Performing Organization Address [facility] de Phone Number LABORATORY [facility] [address] [place] [address] * (ABNORMAL) BASIC METABOLIC PANEL (04/03/2024 6:12 AM EDT) BUN 10 6 - 20 mg/dL 04/03/2024 11:09 AM EDT LABORATORY [facility] Creatinine 0.5 0.5 - 1.0 mg/dL 04/03/2024 11:09 AM EDT LABORATORY [facility] Estimated Glomerular Filtration Rate >90 >=60 mL/min 04/03/2024 11:09 AM EDT LABORATORY [facility] Comment:eGFR is calculated b ased on the CKD-EPI 2020 equation Sodium 136 135 - 146 mmol/L 04/03/2024 11:09 AM EDT LABORATORY C Potassium 3.6 3.5 - 5.1 mmol/L 04/03/2024 11:09 AM EDT LABORATORY [facility] Chloride 101 98 - 107 mmol/L 04/03/2024 11:09 AM EDT LABORATORY [facility] CO2 16(L) 22 - 32 mmol/L 04/03/2024 11:09 AM EDT LABORATORY [facility] Anion Gap 19(H) 7 - 15 mmol/L 04/03/2024 11:09 AM EDT LAB[facility]ATORY [facility] Glucose 89 70 - 120 mg/dL 04/03/2024 11:09 AM EDT LABORATORY [facility] Calcium 8.8 8.4 - 10.2 mg/dL 04/03/2024 11:09 AM EDT LAB[facility]ATORY [facility] Blood Venous blood specimen / Unknown Venipuncture / Unknown 04/03/2024 6:12 AM EDT 04/03/2024 6:39 AM EDT Bayron Mejia MD LAB BLOOD OR DERABLES LAB[facility]ATORY [facility] [address] [place] [address] * (ABNORMAL) CBC (04/03/2024 6:11 AM EDT) WBC 16.63(H) 4.00 - 10.80 K/uL 04/03/2024 6:51 AM EDT LABORATORY [facility] RBC 3.50 3.85 - 5.15 M/uL 04/03/2024 6:51 AM EDT LABORATORY [facility] HGB 10.1(L) 12.0 - 15.3 g/dL 04/03/2024 6:51 AM EDT LABORATORY [facility] HCT 32.8(L) 36.0 - 45.2 % 04/03/2024 6:51 AM EDT LABORATORY [facility] MCV 93.7 81.5 - 97.5 fL 04/03/2024 6:51 AM EDT LABORATORY [facility] MCH 28.9 27.0 - 34.0 pg 04/03/2024 6:51 AM EDT LABORATORY [facility] MCHC 30.8 32.0 - 36.0 g/dL 04/03/2024 6:51 AM EDT LABORATORY [facility] RDW 13.8 11.5 - 15.5 % 04/03/2024 6:51 AM EDT LABORATORY [facility] PLT 347 140 - 400 K/uL 04/03/2024 6:51 AM EDT LABORATORY [facility] MPV 9.7 6.6 - 11.1 fL 04/03/2024 6:51 AM EDT LABORATORY [facility] nRBCs 0 <=0 /100 WBCs 04/03/2024 6:51 AM EDT LAB[facility]ATORY [facility] Blood Venous blood specimen / Unknown Venipuncture / Unknown 04/03/2024 6:11 AM EDT 04/03/2024 6:39 AM EDT Bayron Mejia MD LAB BLOOD OR DERABLES Performing Organization Address [facility] Co de Phone Number LABORATORY [place] [address] [place] [address] * GROUP A STREP PCR (04/03/2024 2:27 AM EDT) Pathologist [facility] A Strep PCR Result Negative. No Group A Streptococcus detected by PCR (amplified probe). Negative 04/03/2024 8:46 AM EDT LABORATORY [facility] Comment:This test was develo ped and its performance characteristics determined by [employer]. It has not been cleared or approved by the FDA. The laboratory is regulated under CLIA as qualified to perform high-complexity testing. This test is used for clinical purposes. It should not be regarded as investigational or for research. Swab Throat swab / Unknown 04/03/2024 2:27 AM EDT 04/03/2024 2:41 AM EDT Rishi Negro MD LAB MICRO - GENERAL ORDERABLES Performing Organization Address [facility] de Phone Number LABORATORY [address] [address] * GROUP A STREP RAPID THROAT (04/03/2024 2:27 AM EDT) Pathologist [facility] A Strep Result Negative Negative 04/03/2024 2:57 AM EDT LABORATORY [facility] Swab Throat swab / Unknown 04/03/2024 2:27 AM EDT 04/03/2024 2:41 AM EDT Rishi Negro MD LAB MICRO - GENERAL ORDERABLES Performing Organization Address [facility] Co de Phone Number LABORATORY [place] [address] [place] [address] * RESPIRATORY PATHOGEN PANEL, PCR (04/03/2024 1:11 AM EDT) [facility] Adenovirus by PCR Negative Negative 024 2:23 AM EDT LABORATORY [facility] Coronavirus 229E by PCR Negative Negative 04/03/2024 2:23 AM EDT LABORATORY [facility] Coronavirus HKU1 by PCR Negative Negative 04/03/2024 2:23 AM EDT LABORATORY [facility] Coronavirus NL63 by PCR Negative Negative 04/03/2024 2:23 AM EDT LABORATORY [facility] Coronavirus OC43 by PCR Negative Negative 04/03/2024 2:23 AM EDT LABORATORY [facility] Coronavirus SARS-CoV-2 by PCR Negative Negative 04/03/2024 2:23 AM EDT LABORATORY [facility] Human Metapneumovirus by PCR Negative Negative 04/03/2024 2:23 AM EDT LABORATORY [facility] Rhinovirus/Enterovi genaro by PCR Negative Negative 04/03/2024 2:23 AM EDT LABORATORY [facility] Influenza A Virus by PCR Negative Negative 04/03/2024 2:23 AM EDT LABORATORY [facility] Influenza B Virus by PCR Negative Negative 04/03/2024 2:23 AM EDT LABORATORY [facility] Parainfluenza Virus 1 by PCR Negative Negative 04/03/2024 2:23 AM EDT LABORATORY [facility] Parainfluenza Virus 2 by PCR Negative Negative 04/03/2024 2:23 AM EDT LABORATORY [facility] Parainfluenza Virus 3 by PCR Negative Negative 04/03/2024 2:23 AM EDT LABORATORY [facility] Parainfluenza Virus 4 by PCR Negative Negative 04/03/2024 2:23 AM EDT LABORATORY [facility] Respiratory Syncytial Virus by PCR Negative Negative 04/03/2024 2:23 AM EDT LABORATORY [facility] Bordetella pertussis by PCR Negative Negative 04/03/2024 2:23 AM EDT LABORATORY [facility] Chlamydia pneumoniae by PCR Negative Negative 04/03/2024 2:23 AM EDT LABORATORY [facility] Mycoplasma pneumoniae by PCR Negative Negative 04/03/2024 2:23 AM EDT LABORATORY [facility] Bordetella parapertussis by PCR Negative Negative 04/03/2024 2:23 AM EDT LABORATORY [facility] Comment: The primers that detect Rhinovirus may cross react with some Enterorviruses. The validation of bronchial specimens, tracheal aspirates, and throats for this assay was developed and performance characteristics determined by [employer]. The validation of alternate specimen types has not been cleared or approved by the U.S. Food and Drug Administration (FDA). It has been determined that such clearance or approval is not necessary. Upper Respiratory Nasopharyngeal swab / Unknown Non-blood Collection / Unknown 04/03/2024 1:11 AM EDT 04/03/2024 1:24 AM EDT Rishi Negro MD LAB MICRO - GENERAL ORDERABLES LABORATORY [facility] [address] [place] [address] * XR ABDOMEN 1 VIEW (04/02/2024 2:54 PM EDT) Anatomical Region Laterality Modality Abdomen, Pelvis Computed Radiogr aphy 04/02/2024 3:16 PM EDT Impressions 04/02/2024 3:59 PM EDT IMPRESSION Enteric tube tip and side port project over stomach. I have personally reviewed this examination and agree with the resident/fellow physician's interpretation. Narrative 04/02/2024 3:59 PM EDT EXAM XR ABDOMEN 1 VIEW-04/02/2024 2:54 pm HISTORY ngt COMPARISON Abdominal radiograph 04/02/2024. TECHNIQUE Single AP view of the abdomen is examined. FINDINGS Enteric tube tip and side port project over stomach. Colonic retained oral contrast along hepatic flexure. Right hemidiaphragm elevation. Lumbar dextroscoliosis. Procedure Note Anthony Huang MD - 04/02/2024 EXAM XR ABDOMEN 1 VIEW-04/02/2024 2:54 pm HISTORY ngt COMPARISON Abdominal radiograph 04/02/2024. TECHNIQUE Single AP view of the abdomen is examined. FINDINGS Enteric tube tip and side port project over stomach. Colonic retained oral contrast along hepatic flexure. Right hemidiaphragmelevation. Lumbar dextroscoliosis. IMPRESSION IMPRESSION Enteric tube tip and side port project over stomach. I have personally reviewed this examination and agree with the resident/fellow physician's interpretation. Vidhi Gonzales DO RADIOLOGY (RAD GENE RAL) * PHOSPHORUS (04/02/2024 6:17 AM EDT) Pathologist [facility] Phosphorus 3.7 2.5 - 4.8 mg/dL 04/02/2024 7:15 AM EDT LABORATORY [facility] Blood Venous blood specimen / Unknown Venipuncture / Unknown 04/02/2024 6:17 AM EDT 04/02/2024 6:21 AM EDT Bayron Mejia MD LAB BLOOD OR DERABLES Performing Organization Address City/[facility]/ZIP Co de Phone Number LABORATORY [facility] [address] [place] [address] * MAGNESIUM (04/02/2024 6:17 AM EDT) Pathologist [facility] Magnesium 2.0 1.5 - 2.6 mg/dL 04/02/2024 7:15 AM EDT LABORATORY [facility] Blood Venous blood specimen / Unknown Venipuncture / Unknown 04/02/2024 6:17 AM EDT 04/02/2024 6:21 AM EDT Bayron Mejia MD LAB BLOOD OR DERABLES Performing Organization Address [facility]/ZIP Co de Phone Number LABORATORY [facility] [address] [place] [address] * (ABNORMAL) CBC (04/02/2024 6:17 AM EDT) Pathologist [facility] WBC 14.11(H) 4.00 - 10.80 K/uL 04/02/2024 6:37 AM EDT LABORATORY [facility] RBC 3.83 3.85 - 5.15 M/uL 04/02/2024 6:37 AM EDT LABORATORY [facility] HGB 11.4(L) 12.0 - 15.3 g/dL 04/02/2024 6:37 AM EDT LABORATORY [facility] HCT 35.4(L) 36.0 - 45.2 % 04/02/2024 6:37 AM EDT LABORATORY [facility] MCV 92.4 81.5 - 97.5 fL 04/02/2024 6:37 AM EDT LABORATORY [facility] MCH 29.8 27.0 - 34.0 pg 04/02/2024 6:37 AM EDT LABORATORY [facility] MCHC 32.2 32.0 - 36.0 g/dL 04/02/2024 6:37 AM EDT LABORATORY [facility] RDW 13.5 11.5 - 15.5 % 04/02/2024 6:37 AM EDT LABORATORY [facility] PLT 358 140 - 400 K/uL 04/02/2024 6:37 AM EDT LABORATORY [facility] MPV 9.7 6.6 - 11.1 fL 04/02/2024 6:37 AM EDT LABORATORY [facility] nRBCs 0 <=0 /100 WBCs 04/02/2024 6:37 AM EDT LABORATORY [facility] Blood Venous blood specimen / Unknown Venipuncture / Unknown 04/02/2024 6:17 AM EDT 04/02/2024 6:21 AM EDT Bayron Mejia MD LAB BLOOD OR DERABLES Performing Organization Address City/State/[facility] Co de Phone Number LABORATORY [facility] [address] [place] [address] * (ABNORMAL) BASIC METABOLIC PANEL (04/02/2024 6:17 AM EDT) BUN 10 6 - 20 mg/dL 04/02/2024 7:15 AM EDT LABORATORY [facility] Creatinine 0.6 0.5 - 1.0 mg/dL 04/02/2024 7:15 AM EDT LABORATORY [facility] Estimated Glomerular Filtration Rate >90 >=60 mL/min 04/02/2024 7:15 AM EDT LABORATORY C Comment:eGFR is calculated b ased on the CKD-EPI 2020 equation Sodium 137 135 - 146 mmol/L 04/02/2024 7:15 AM EDT LABORATORY [facility] Potassium 4.0 3.5 - 5.1 mmol/L 04/02/2024 7:15 AM EDT LABORATORY [facility] Chloride 98 98 - 107 mmol/L 04/02/2024 7:15 AM EDT LABORATORY [facility] CO2 17(L) 22 - 32 mmol/L 04/02/2024 7:15 AM EDT LABORATORY [facility] Anion Gap 22(H) 7 - 15 mmol/L 04/02/2024 7:15 AM EDT LABORATORY [facility] Glucose 90 70 - 120 mg/dL 04/02/2024 7:15 AM EDT LABORATORY [facility] Calcium 9.4 8.4 - 10.2 mg/dL 04/02/2024 7:15 AM EDT LABORATORY [facility] Blood Venous blood specimen / Unknown Venipuncture / Unknown 04/02/2024 6:17 AM EDT 04/02/2024 6:21 AM EDT Bayron Mejia MD LAB BLOOD OR DERABLES LABORATORY [facility] [address] [place] [address] * XR ABDOMEN 1 VIEW (04/02/2024 2:50 AM EDT) Anatomical Region Laterality Modality Abdomen, Pelvis Digital Radiogra phy 04/02/2024 8:41 AM EDT Impressions 04/02/2024 8:38 AM EDT IMPRESSION Nonobstructive bowel gas pattern. Narrative 04/02/2024 8:38 AM EDT EXAM XR ABDOMEN 1 VIEW - 04/02/2024 2:50 am HISTORY eval distention COMPARISON: XR abdomen dated 04/01/2024 TECHNIQUE Three radiographs of the abdomen and pelvis are submitted. FINDINGS Catheters/tubes/devices/foreign bodies: Gastric tube with tip and side port overlying the stomach. Nonobstructive bowel gas pattern. Oral contrast from the 03/31/2024 CT has progressed to the rectum. Degenerative osseous changes. Procedure Note Sadi Marques, - 04/02/2024 EXAM XR ABDOMEN 1 VIEW - 04/02/2024 2:50 am HISTORY eval distention COMPARISON: XR abdomen dated 04/01/2024 TECHNIQUE Three radiographs of the abdomen and pelvis are submitted. FINDINGS Catheters/tubes/devices/foreign bodies: Gastric tube with tip and sideport overlying the stomach. Nonobstructive bowel gas pattern. Oral contrast from the 03/31/2024 CThas progressed to the rectum. Degenerative osseous changes. IMPRESSION IMPRESSION Nonobstructive bowel gas pattern. Radha Chacon MD RADIOLOGY ([employer] [facility]) * XR ABDOMEN 1 VIEW (04/01/2024 12:44 PM EDT) Anatomical Region Laterality Modality Abdomen, Pelvis Computed Radiogr aphy 04/01/2024 3:15 PM EDT Impressions 04/01/2024 3:13 PM EDT IMPRESSION Gastric tube in the proximal stomach. Narrative 04/01/2024 3:13 PM EDT EXAM XR ABDOMEN 1 VIEW - 04/01/2024 12:44 pm HISTORY NGT placement, patient vomiting this AM TECHNIQUE Supine AP view of the abdomen was performed. COMPARISON Abdominal radiograph of 03/31/2024. FINDINGS Gastric tube terminates in the proximal stomach. Procedure Note Alley Pelayo MD - 04/01/2024 EXAM XR ABDOMEN 1 VIEW - 04/01/2024 12:44 pm HISTORY NGT placement, patient vomiting this AM TECHNIQUE Supine AP view of the abdomen was performed. COMPARISON Abdominal radiograph of 03/31/2024. FINDINGS Gastric tube terminates in the proximal stomach. IMPRESSION IMPRESSION Gastric tube in the proximal stomach. Bayron Mejia MD RADIOLOGY (R [facility] GENERAL) * PHOSPHORUS (04/01/2024 5:49 AM EDT) Phosphorus 4.1 2.5 - 4.8 mg/dL 04/01/2024 6:29 AM EDT LABORATORY [facility] Blood Venous blood specimen / Unknown Capillary / Unknown 04/01/2024 5:49 AM EDT 04/01/2024 6:09 AM EDT Bayron Mejia MD LAB BLOOD OR DERABLES LABORATORY [facility] [address] [place] [address] * MAGNESIUM (04/01/2024 5:49 AM EDT) Magnesium 2.1 1.5 - 2.6 mg/dL 04/01/2024 6:29 AM EDT LABORATORY [facility] Blood Venous blood specimen / Unknown Capillary / Unknown 04/01/2024 5:49 AM EDT 04/01/2024 6:09 AM EDT Bayron Mejia MD LAB BLOOD OR DERABLES LABORATORY [facility] [address] [place] [address] * (ABNORMAL) CBC (04/01/2024 5:49 AM EDT) Pathologist [facility] WBC 10.05 4.00 - 10.80 K/uL 04/01/2024 6:20 AM EDT LABORATORY [facility] RBC 3.64 3.85 - 5.15 M/uL 04/01/2024 6:20 AM EDT LABORATORY [facility] HGB 10.7(L) 12.0 - 15.3 g/dL 04/01/2024 6:20 AM EDT LABORATORY [facility] HCT 32.7(L) 36.0 - 45.2 % 04/01/2024 6:20 AM EDT LABORATORY [facility] MCV 89.8 81.5 - 97.5 fL 04/01/2024 6:20 AM EDT LABORATORY [facility] MCH 29.4 27.0 - 34.0 pg 04/01/2024 6:20 AM EDT LABORATORY [facility] MCHC 32.7 32.0 - 36.0 g/dL 04/01/2024 6:20 AM EDT LABORATORY [facility] RDW 13.4 11.5 - 15.5 % 04/01/2024 6:20 AM EDT LABORATORY [facility] PLT 258 140 - 400 K/uL 04/01/2024 6:20 AM EDT LABORATORY [facility] MPV 10.5 6.6 - 11.1 fL 04/01/2024 6:20 AM EDT LABORATORY [facility] nRBCs 0 <=0 /100 WBCs 04/01/2024 6:20 AM EDT LABORATORY [facility] Blood Venous blood specimen / Unknown Capillary / Unknown 04/01/2024 5:49 AM EDT 04/01/2024 6:09 AM EDT Bayron Mejia MD LAB BLOOD OR DERABLES LABORATORY [facility] [address] [place] [address] * (ABNORMAL) BASIC METABOLIC PANEL (04/01/2024 5:49 AM EDT) BUN 10 6 - 20 mg/dL 04/01/2024 6:29 AM EDT LABORATORY [facility] Creatinine 0.6 0.5 - 1.0 mg/dL 04/01/2024 6:29 AM EDT LABORATORY [facility] Estimated Glomerular Filtration Rate >90 >=60 mL/min 04/01/2024 6:29 AM EDT LABORATORY [facility] Comment:eGFR is calculated b ased on the CKD-EPI 2020 equation Sodium 135 135 - 146 mmol/L 04/01/2024 6:29 AM EDT LABORATORY [facility] Potassium 4.0 3.5 - 5.1 mmol/L 04/01/2024 6:29 AM EDT LABORATORY [facility] Chloride 97(L) 98 - 107 mmol/L 04/01/2024 6:29 AM EDT LABORATORY [facility] CO2 19(L) 22 - 32 mmol/L 04/01/2024 6:29 AM EDT LABORATORY [facility] Anion Gap 19(H) 7 - 15 mmol/L 04/01/2024 6:29 AM EDT LABORATORY [facility] Glucose 69(L) 70 - 120 mg/dL 04/01/2024 6:29 AM EDT LABORATORY [facility] Calcium 9.1 8.4 - 10.2 mg/dL 04/01/2024 6:29 AM EDT LABORATORY [facility] Blood Venous blood specimen / Unknown Capillary / Unknown 04/01/2024 5:49 AM EDT 04/01/2024 6:09 AM EDT Bayron Mejia MD LAB BLOOD OR DERABLES LABORATORY [facility] [address] [place] [address] * CT ABD/PELVIS WO IV CONTRAST - W ORAL CONTRAST (03/31/2024 6:47 PM EDT) Anatomical Region Laterality Modality Body, Abdomen, Pelvis Computed T omography 03/31/2024 7:10 PM EDT Impressions 03/31/2024 7:07 PM EDT IMPRESSION 1. No extraluminal contrast identified. Similar size of the lobulated collection anterior and inferior to the antrum, presumed abscess based on prior imaging. Necrotic neoplastic mass is a possibility. 2. Segmental thickening of the transverse colon adjacent to the collection is likely reactive. 3. Irregular antral thickening, likely neoplastic. 4. Other findings as above. Narrative 03/31/2024 7:07 PM EDT EXAM EXAM: CT ABD/PELVIS WO IV CONTRAST - W ORAL CONTRAST DATE TIME: 03/31/2024 - 03/31/2024 6:47 pm HISTORY 58 y/o F concern for gastric perforation TECHNIQUE Oral Contrast: Administered. IV Contrast: Not administered. COMPARISON CT 03/31/2024, PET-CT 03/29/2024 FINDINGS LINES AND DEVICES: Gastric tube terminates in the stomach LOWER CHEST: Mild bibasilar atelectasis. LIVER: Not enlarged. BILE DUCTS: Not dilated. GALLBLADDER: Sludge versus vicarious excretion of contrast. PANCREAS: Mild to moderate atrophy. SPLEEN: Not enlarged ADRENALS: Within normal limits. KIDNEYS/URETERS: Excreted contrast from prior administration. No hydronephrosis. BOWEL: Stomach distended with contrast. Irregular thickening of the antrum small amount of contrast in the duodenum. No extraluminal contrast identified. Lobulated collection anterior and inferior to the antrum is similar in size measuring approximately 6.3 x 5 x 5 cm. Segmental thickening of the transverse colon adjacent to the collection. No obstruction. BLADDER: Partially distended. REPRODUCTIVE ORGANS: 2.5 cm simple appearing right ovarian cyst. LYMPH NODES: Not enlarged. VESSELS: No abdominal aortic aneurysm. Minimal atherosclerosis PERITONEUM/RETROPERITONEUM: Fluid collection as above. No free air. ABDOMINAL WALL/SOFT TISSUES: Within normal limits. BONES: Degenerative changes. Mild scoliosis. Procedure Note George Aguilar II, MD - 03/31/2024 EXAM EXAM: CT ABD/PELVIS WO IV CONTRAST - W ORAL CONTRAST DATE TIME: 03/31/2024 - 03/31/2024 6:47 pm HISTORY 58 y/o F concern for gastric perforation TECHNIQUE Oral Contrast: Administered. IV Contrast: Not administered. COMPARISON CT 03/31/2024, PET-CT 03/29/2024 FINDINGS LINES AND DEVICES: Gastric tube terminates in the stomach LOWER CHEST: Mild bibasilar atelectasis. LIVER: Not enlarged. BILE DUCTS: Not dilated. GALLBLADDER: Sludge versus vicarious excretion of contrast. PANCREAS: Mild to moderate atrophy. SPLEEN: Not enlarged ADRENALS: Within normal limits. KIDNEYS/URETERS: Excreted contrast from prior administration. Nohydronephrosis. BOWEL: Stomach distended with contrast. Irregular thickening of theantrum small amount of contrast in the duodenum. No extraluminal contrastidentified. Lobulated collection anterior and inferior to the antrum issimilar in size measuring approximately 6.3 x 5 x 5 cm. Segmentalthickening of the transverse colon adjacent to the collection. Noobstruction. BLADDER: Partially distended. REPRODUCTIVE ORGANS: 2.5 cm simple appearing right ovarian cyst. LYMPH NODES: Not enlarged. VESSELS: No abdominal aortic aneurysm. Minimal atherosclerosis PERITONEUM/RETROPERITONEUM: Fluid collection as above. No free air. ABDOMINAL WALL/SOFT TISSUES: Within normal limits. BONES: Degenerative changes. Mild scoliosis. IMPRESSION IMPRESSION 1. No extraluminal contrast identified. Similar size of the lobulatedcollection anterior and inferior to the antrum, presumed abscess based onprior imaging. Necrotic neoplastic mass is a possibility. 2. Segmental thickening of the transverse colon adjacent to the collectionis likely reactive. 3. Irregular antral thickening, likely neoplastic. 4. Other findings as above. Bayron Mejia MD RAD CT * XR ABDOMEN 1 VIEW (03/31/2024 11:13 AM EDT) Anatomical Region Laterality Modality Abdomen, Pelvis Computed Radiogr aphy 03/31/2024 11:5 6 AM EDT Impressions 03/31/2024 11:54 AM EDT IMPRESSION Gastric tube with tip overlying the stomach and side port at the GE junction. Consider advancement by 3-4 cm. Narrative 03/31/2024 11:54 AM EDT EXAM XR ABDOMEN 1 VIEW - 03/31/2024 11:12 am; 03/31/2024 11:13 am HISTORY Gastric Tube placement verification; NGT placement COMPARISON: None. TECHNIQUE Sequential radiographs of the abdomen are submitted. FINDINGS Catheters/tubes/devices/foreign bodies: Gastric tube initially terminates in the esophagus, subsequently advanced with tip overlying the stomach and side port at the GE junction. Nonobstructive bowel gas pattern. Degenerative osseous changes. Procedure Note Sadi Marques DO - 03/31/2024 EXAM XR ABDOMEN 1 VIEW - 03/31/2024 11:12 am; 03/31/2024 11:13 am HISTORY Gastric Tube placement verification; NGT placement COMPARISON: None. TECHNIQUE Sequential radiographs of the abdomen are submitted. FINDINGS Catheters/tubes/devices/foreign bodies: Gastric tube initially terminatesin the esophagus, subsequently advanced with tip overlying the stomach andside port at the GE junction. Nonobstructive bowel gas pattern. Degenerative osseous changes. IMPRESSION IMPRESSION Gastric tube with tip overlying the stomach and side port at the GEjunction. Consider advancement by 3-4 cm. Bayron Mejia MD RADIOLOGY (R AD GENERAL) * XR ABDOMEN 1 VIEW (03/31/2024 11:12 AM EDT) Anatomical Region Laterality Modality Abdomen, Pelvis Computed Radiogr aphy 03/31/2024 11:5 6 AM EDT Impressions 03/31/2024 11:54 AM EDT IMPRESSION Gastric tube with tip overlying the stomach and side port at the GE junction. Consider advancement by 3-4 cm. Narrative 03/31/2024 11:54 AM EDT EXAM XR ABDOMEN 1 VIEW - 03/31/2024 11:12 am; 03/31/2024 11:13 am HISTORY Gastric Tube placement verification; NGT placement COMPARISON: None. TECHNIQUE Sequential radiographs of the abdomen are submitted. FINDINGS Catheters/tubes/devices/foreign bodies: Gastric tube initially terminates in the esophagus, subsequently advanced with tip overlying the stomach and side port at the GE junction. Nonobstructive bowel gas pattern. Degenerative osseous changes. Procedure Note Sadi Marques DO - 03/31/2024 EXAM XR ABDOMEN 1 VIEW - 03/31/2024 11:12 am; 03/31/2024 11:13 am HISTORY Gastric Tube placement verification; NGT placement COMPARISON: None. TECHNIQUE Sequential radiographs of the abdomen are submitted. FINDINGS Catheters/tubes/devices/foreign bodies: Gastric tube initially terminatesin the esophagus, subsequently advanced with tip overlying the stomach andside port at the GE junction. Nonobstructive bowel gas pattern. Degenerative osseous changes. IMPRESSION IMPRESSION Gastric tube with tip overlying the stomach and side port at the GEjunction. Consider advancement by 3-4 cm. Bayron Mejia MD RADIOLOGY (R AD GENERAL) * ABO/RH (03/31/2024 10:08 AM EDT) ABO A 03/31/2024 11:20 AM EDT LABORATORY [facility] B[facility]OD [facility] Rh Positive 03/31/2024 11:20 AM EDT LABORATORY [facility] B[facility] Blood Venous blood specimen / Unknown Venipuncture / Unknown 03/31/2024 10:08 AM EDT 03/31/2024 10:13 AM EDT Bayron Mejia MD LAB BLOOD BA NK TEST ORDERABLES Performing Organization Address City/State/[facility] Co de Phone Number LABORATORY [facility] B[facility]OD [facility] [address] [place] [address] * (ABNORMAL) DIFFERENTIAL, AUTOMATED (03/31/2024 10:08 AM EDT) WBC 7.51 4.00 - 10.80 K/uL 03/31/2024 10:35 AM EDT [facility] Neutrophils % 74.8 40.0 - 75.0 % 03/31/2024 10:35 AM EDT [facility] Lymphocytes % 11.1(L) 18.0 - 42.0 % 03/31/2024 10:35 AM EDT [facility] Monocytes % 12.9(H) 1.0 - 11.0 % 03/31/2024 10:35 AM EDT [facility] Eosinophils % 0.5 0.0 - 6.0 % 03/31/2024 10:35 AM EDT [facility] Basophils % 0.3 0.0 - 2.0 % 03/31/2024 10:35 AM EDT [facility] Immature Granulocytes % 0.4 0.0 - 2.0 % 03/31/2024 10:35 AM EDT [facility] Absolute Neutrophils 5.62 1.80 - 7.70 K/uL 03/31/2024 10:35 AM EDT [facility] Absolute Lymphocytes 0.83(L) 1.00 - 4.80 K/ul 03/31/2024 10:35 AM EDT [facility] Absolute Monocytes 0.97 0.00 - 1.10 K/uL 03/31/2024 10:35 AM EDT [facility] Absolute Eosinophils 0.04 0.00 - 0.70 K/uL 03/31/2024 10:35 AM EDT [facility] Absolute Basophils 0.02 0.00 - 0.20 K/uL 03/31/2024 10:35 AM EDT [facility] Absolute Immature Granulocytes 0.03 0.00 - 0.20 K/uL 03/31/2024 10:35 AM EDT [facility] Blood Venous blood specimen / Unknown Venipuncture / Unknown 03/31/2024 10:08 AM EDT 03/31/2024 10:16 AM EDT Bayron Mejia MD LAB BLOOD OR DERABLES [facility] [address] [place] [address] * (ABNORMAL) CBC (03/31/2024 10:08 AM EDT) WBC 7.51 4.00 - 10.80 K/uL 03/31/2024 10:35 AM EDT [facility] RBC 3.28 3.85 - 5.15 M/uL 03/31/2024 10:35 AM EDT [facility] HGB 9.8(L) 12.0 - 15.3 g/dL 03/31/2024 10:35 AM EDT [facility] HCT 30.7(L) 36.0 - 45.2 % 03/31/2024 10:35 AM EDT [facility] MCV 93.6 81.5 - 97.5 fL 03/31/2024 10:35 AM EDT [facility] MCH 29.9 27.0 - 34.0 pg 03/31/2024 10:35 AM EDT [facility] MCHC 31.9 32.0 - 36.0 g/dL 03/31/2024 10:35 AM EDT LABORATORY [facility] RDW 13.4 11.5 - 15.5 % 03/31/2024 10:35 AM EDT LABORATORY [facility] PLT 245 140 - 400 K/uL 03/31/2024 10:35 AM EDT LABORATORY [facility] MPV 10.2 6.6 - 11.1 fL 03/31/2024 10:35 AM EDT LABORATORY [facility] nRBCs 0 <=0 /100 WBCs 03/31/2024 10:35 AM EDT LABORATORY [facility] Blood Venous blood specimen / Unknown Venipuncture / Unknown 03/31/2024 10:08 AM EDT 03/31/2024 10:16 AM EDT Bayron Mejia MD LAB BLOOD OR DERABLES Performing Organization Address City/[facility]/ZIP Co de Phone Number LABORATORY [facility] [address] [place] [address] * TYPE AND SCREEN (03/31/2024 10:08 AM EDT) ABO A 03/31/2024 11:04 AM EDT LABORATORY [facility] Rh Positive 03/31/2024 11:04 AM EDT LABORATORY [facility] Red Blood Cell Antibody Screen Negative 03/31/2024 11:04 AM EDT LABORATORY [facility] Specimen Expiration Date 04/03/2024 23:59 03/31/2024 11:04 AM EDT LABORATORY [facility] Blood Venous blood specimen / Unknown Venipuncture / Unknown 03/31/2024 10:08 AM EDT 03/31/2024 10:13 AM EDT Bayron Mejia MD LAB BLOOD BA NK TEST ORDERABLES Performing Organization Address City/[facility]/ZIP Co de Phone Number LABORATORY [facility] [address] [place] [address] * LACTATE (03/31/2024 10:08 AM EDT) Lactate 0.6 0.4 - 2.0 mmol/L 03/31/2024 10:42 AM EDT [facility] Blood Venous blood specimen / Unknown Venipuncture / Unknown 03/31/2024 10:08 AM EDT 03/31/2024 10:16 AM EDT Bayron Mejia MD LAB BLOOD OR DERABLES [facility] [address], [place] [id number] * (ABNORMAL) BASIC METABOLIC PANEL (03/31/2024 10:08 AM EDT) BUN 10 6 - 20 mg/dL 03/31/2024 10:45 AM EDT [facility] Creatinine 0.7 0.5 - 1.0 mg/dL 03/31/2024 10:45 AM EDT [facility] Estimated Glomerular Filtration Rate >90 >=60 mL/min 03/31/2024 10:45 AM EDT [facility] Comment:eGFR is calculated b ased on the CKD-EPI 2020 equation Sodium 134(L) 135 - 146 mmol/L 03/31/2024 10:45 AM EDT [facility] Potassium 4.2 3.5 - 5.1 mmol/L 03/31/2024 10:45 AM EDT [facility] Chloride 99 98 - 107 mmol/L 03/31/2024 10:45 AM EDT [facility] CO2 25 22 - 32 mmol/L 03/31/2024 10:45 AM EDT [facility] Anion Gap 10 7 - 15 mmol/L 03/31/2024 10:45 AM EDT [facility] Glucose 93 70 - 120 mg/dL 03/31/2024 10:45 AM EDT [facility] Calcium 8.8 8.4 - 10.2 mg/dL 03/31/2024 10:45 AM EDT [facility] Blood Venous blood specimen / Unknown Venipuncture / Unknown 03/31/2024 10:08 AM EDT 03/31/2024 10:16 AM EDT Bayron Mejia MD LAB BLOOD OR DERABLES [facility] [address] [place] [address] documented in this encounter Visit Diagnoses Diagnosis Abdominal pain, epigastric- Primary Gastric perforation (HCC) Chronic or unspecified gastric ulcer with perforation, without mention of obstruction Gastric mass Unspecified disorder of stomach and duodenum 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 neoplasm of pyloric antrum Gastric adenocarcinoma (HCC) Malignant neoplasm of stomach, unspecified site Gastric adenocarcinoma (HCC) Malignant neoplasm of stomach, unspecified site HTN (hypertension) Unspecified essential hypertension 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 NOTE: Maximum of 4000 mg per 24 hours of acetaminophen from all acetaminophen containing products., Indication: Patient is strictly NPO New Bag 03/31/2024 10:43 PM EDT 1,000 mg 400 mL/hr New Bag 03/31/2024 7:00 PM EDT 1,000 mg 400 mL/hr Acetaminophen (Ofirmev) inj 1,000 mg 1,000 mg, Intravenous, Q6H, 4 doses, First dose (after last modification) on 04/01/24 at 0600, Last dose on 04/02/24 at 0000, Administer over 15 Minutes, Administer undiluted over 15 minutes! NOTE: Maximum of 4000 mg per 24 hours of acetaminophen from all acetaminophen containing products., Indication: Patient is strictly NPO New Bag 04/01/2024 10:49 PM EDT 1,000 mg 400 mL/hr New Bag 04/01/2024 5:51 PM EDT 1,000 mg 400 mL/hr Restarted 04/01/2024 12:28 PM EDT 4,000 mg/hr 400 mL/hr Acetaminophen (Ofirmev) inj 1,000 mg 1,000 mg, Intravenous, Q6H, 4 doses, First dose (after last reorder) on Wed04/02/24 at 0600, Last dose on 04/03/24 at 0000, Administer over 15 Minutes, Administer undiluted over 15 minutes! NOTE: Maximum of 4000 mg per 24 hours of acetaminophen from all acetaminophen containing products., Indication: Patient is strictly NPO New Bag 04/03/2024 12:06 AM EDT 1,000 mg 400 mL/hr Rate Verify 04/02/2024 6:47 PM EDT 4,000 mg/hr 400 mL/hr New Bag 04/02/2024 6:33 PM EDT 1,000 mg 400 mL/hr Acetaminophen (Tylenol) tab 975 mg 975 mg, Oral, Q8H, First dose on 04/03/24 at 1915, Until Discontinued, Maximum of 4 grams (4000 mg) per day. Given 04/06/2024 1:16 PM EDT 975 mg Given 04/06/2024 5:07 AM EDT 975 mg Given 04/05/2024 9:07 PM EDT 975 mg Carisoprodol (Soma) tab 350 mg 350 mg, Oral, Q6H PRN Muscle spasms, Starting on Tu04/04/24 at 0643, Until Cheryl 04/06/24 at 1829 Given 04/06/2024 5:23 AM EDT 350 mg Given 04/05/2024 6:25 PM EDT 350 mg Given 04/04/2024 8:55 PM EDT 350 mg Enoxaparin (Lovenox) inj 40 mg 40 mg, Subcutaneous, Daily(AM), First dose on 04/01/24 at 0900, Until Discontinued, If patient is on warfarin, inform provider if daily INR value is 2 or greater!, Admission Given 04/06/2024 9:06 AM EDT 40 mg Abdomen Left Lower Given 04/04/2024 8:53 AM EDT 40 mg Ab domen Left Lower Given 04/03/2024 8:11 AM EDT 40 mg Ab domen Left Lower fluconazole in NSS (Diflucan IV) ivpb 1,000 mg IV Piggyback, 1,000 mg, ONCE, 1 dose, On Wed04/02/24 at 0900, Administer over 300 Minutes New Bag 04/02/2024 12:47 PM EDT 1,000 mg 10 0 mL/hr fluconazole in NSS (Diflucan IV) ivpb 600 mg IV Piggyback, 600 mg (rounded from 549.6 mg = 6 mg/kg 91.6 kg), Q24H, First dose on Wed04/03/24 at 0815, Until Discontinued, Administer over 180 Minutes New Bag 04/06/2024 9:17 AM EDT 600 mg 100 mL/hr New Bag 04/05/2024 10:15 AM EDT 600 mg 100 mL/hr New Bag 04/04/2024 9:00 AM EDT 600 mg 100 mL/hr HYDROmorphone (Dilaudid) inj 0.5 mg 0.5 mg, IV Push, Q2H PRN Pain, Severe, Starting on Wed03/31/24 at 0939, Until Wed04/03/24 at 1935, Do not use with ELECTRICAL ELECTRONICS ENGINEER (unless directed by provider). May use if patient unable to take oral pain medications., Admission Given 04/03/2024 8:57 AM EDT 0.5 mg Given 04/02/2024 9:38 PM EDT 0.5 mg Given 04/02/2024 4:01 AM EDT 0.5 mg HYDROmorphone (Dilaudid) inj 0.5 mg 0.5 mg, IV Push, Q2H PRN Pain, Breakthrough, Starting on Wed04/03/24 at 1935, Until Wed04/04/24 at 0653, Do not use with ELECTRICAL ELECTRONICS ENGINEER (unless directed by provider). May use if patient unable to take oral pain medications., Admission Given 04/04/2024 1:59 AM EDT 0.5 mg Given 04/03/2024 10:05 PM EDT 0.5 mg HYDROmorphone (Dilaudid) tab 2 mg 2 mg, Oral, Q4H PRN Pain, Severe, Starting on Wed04/03/24 at 1955, Until Wed04/06/24 at 1829 Given 04/05/2024 3: 52 AM EDT 2 mg Given 04/04/2024 4:38 AM EDT 2 mg Given 04/04/2024 12:13 AM EDT 2 mg Iohexol (Omnipaque) 9 MG/ML oral solution 1,000 mL 1,000 mL, Oral, ONCE, On Wed03/31/24 at 1930, For 1 dose, Radiology Medication Routing (Non-IR) Given 03/31/2024 7:30 PM EDT 700 mL isolyte-S pH 7.4 infusion Intravenous, at 75 mL/hr, Plasma-LYTE 148, isolyte-S, and isolyte-S pH 7.4 are considered equivalent - including for MAR barcode scanning., CONTINUOUS, Starting on Wed04/02/24 at 0245, Until Wed04/04/24 at 0653 Rate Verify 04/04/2024 1:03 AM EDT 75 mL /hr Rate Verify 04/03/2024 7:54 PM EDT 75 mL/hr Rate Verify 04/03/2024 6:21 PM EDT 75 mL/hr LORazepam (Ativan) inj 1 mg 1 mg, IV Push, ONCE, On Wed03/31/24 at 1045, For 1 dose, MUST FURTHER DILUTE FOR IV PUSH WITH EQUAL VOLUME OF NSS Given 03/31/2024 10:14 AM EDT 1 mg melatonin tab 3 mg 3 mg, Oral, HS PRN Insomnia, Starting on Wed04/03/24 at 2315, Until Cheryl 04/06/24 at 1829 Given 04/04/2024 9:49 PM EDT 3 mg Given 04/04/2024 12:13 AM EDT 3 mg Metoprolol Tartrate (Lopressor) tab 12.5 mg 12.5 mg, NG Tube, BID (.AM/PM), First dose on Wed03/31/24 at 2100, Until Discontinued, Hold for HR less than 60 or SBP below 100 and notify service if dose is held Given 04/03/2024 8:11 AM EDT 12.5 mg Given 04/02/2024 10:25 PM EDT 12.5 mg Given 04/02/2024 10:23 AM EDT 12.5 mg Metoprolol Tartrate (Lopressor) tab 12.5 mg 12.5 mg, Oral, BID (.AM/PM), First dose (after last modification) on Wed04/03/24 at 2100, Until Discontinued, Hold for HR less than 60 or SBP below 100 and notify service if dose is held Given 04/06/2024 9:07 AM EDT 12.5 mg Given 04/05/2024 9:07 PM EDT 12.5 mg Given 04/05/2024 5:54 AM EDT 12.5 mg naloxone (Narcan) 0.4 MG/ML inj 0.08 mg 0.08 mg, IV Push, PRN Other, If patient is over sedated or Respiratory Rate less than 8, Starting on Wed03/31/24 at 0939, Until Cheryl 04/06/24 at 1829, Call provider if patient is over sedated or Respiratory Rate is less than 8, Admission ondansetron (Zofran) inj 4 mg 4 mg, IV Push, Q6H PRN Other, May use for nausea or vomiting if patient unable to take oral ondansetron, Starting on Wed03/31/24 at 0938, Until Cheryl 04/06/24 at 1829, Admission Given 04/02/2024 9:51 PM EDT 4 mg Given 04/01/2024 10:46 PM EDT 4 mg Given 04/01/2024 11:52 AM EDT 4 mg ondansetron ODT (Zofran) tab 4 mg 4 mg, On Tongue, Q6H PRN Nausea, Vomiting, Starting on Wed03/31/24 at 0938, Until Cheryl 04/06/24 at 1829, Admission Pantoprazole (Protonix) inj 40 mg 40 mg, IV Push, Daily(AM), First dose on Wed03/31/24 at 1015, Until Discontinued, IV push instructions: Flush I.V. Line before and after administration. In-line filter not required. 2-minute infusion: The volume of reconstituted solution (4mg/ml) to be injected may be administered intravenously over at least 2 minutes. ( Dilute each vial with 10 ml of 0.9% saline PF) Given 04/06/2024 9:07 AM EDT 40 mg Given 04/04/2024 8:53 AM EDT 40 mg Given 04/03/2024 8:11 AM EDT 40 mg phenol (chlorASEPTIC) spray 3 [place] 3 [place], Oral, Q4H PRN Sore throat, Starting on Wed03/31/24 at 1302, Until Cheryl 04/06/24 at 1829, See nursing care plan Given 04/03/2024 3:36 PM EDT 3 Spr ays Given 04/03/2024 11:32 AM EDT 3 Sprays Given 04/03/2024 6:59 AM EDT 3 Sprays Piperacillin-Tazobactam (Zosyn) 4.5 g in 100 mL NSS ivpb (FOUR hour infusion) IV Piggyback, 4.5 g, Q8HNOW, 15 doses, First dose on Wed04/02/24 at 1315, Last dose on Wed04/07/24 at 0515, Administer over 4 Hours, at 27.5 mL/hr Rate Verify 04/06/2024 6:28 AM EDT 1.125 g/hr 27.5 mL/hr New Bag 04/06/2024 5:12 AM EDT 4.5 g 27.5 mL/hr New Bag 04/05/2024 9:17 PM EDT 4.5 g 27.5 mL/hr Piperacillin-Tazobactam (Zosyn) 4.5 g in 100 mL NSS ivpb (HALF hour infusion) IV Piggyback, 4.5 g, ONCE, 1 dose, On Wed04/02/24 at 0900, Administer over 30 Minutes New Bag 04/02/2024 10:36 AM EDT 4.5 g 220 mL/hr potassium chloride ER tab 40 mEq 40 mEq, Oral, ONCE, On Wed04/04/24 at 1100, For 1 dose, This med should NOT be Crushed or Chewed Given 04/04/2024 10:43 AM EDT 40 mEq potassium chloride ER tab 40 mEq 40 mEq, Oral, ONCE, On Wed04/05/24 at 0500, For 1 dose, This med should NOT be Crushed or Chewed Given 04/05/2024 5:45 AM EDT 40 mEq Simethicone (Mylicon) oral susp 20 mg 20 mg, NG Tube, Q6H PRN Gas, Indigestion, Starting on Wed04/03/24 at 0158, Until 04/03/24 at 1641 Given 04/03/2024 9:27 AM EDT 20 mg Given 04/03/2024 2:30 AM EDT 20 mg Simethicone (Mylicon) oral susp 20 mg 20 mg, Oral, Q6H PRN Gas, Indigestion, Starting on Wed04/03/24 at 1641, Until Cheryl 04/06/24 at 1829 Given 04/03/2024 5:21 PM EDT 20 mg sodium chloride 0.9 % flush peripheral nikole 3 mL 3 mL, IV Push, QSHIFT, First dose on Wed03/31/24 at 1600, Until Discontinued, Do not flush if lock, PICC, or central line not in place; IV infusing or unable to flush., Admission Given 04/06/2024 9:07 AM EDT 3 mL Given 04/05/2024 4:00 PM EDT 3 mL Given 04/05/2024 8:00 AM EDT 3 mL traMADol (Ultram) tab 50 mg 50 mg, Oral, Q4H PRN Pain, Moderate, Starting on Wed04/03/24 at 1955, Until Cheryl 04/06/24 at 1829 Given 04/04/2024 10:43 AM EDT 50 mg Given 04/03/2024 8:10 PM EDT 50 mg documented in this encounter Active and Recently Administered Medications Times are shown in EDT. Scheduled Medication Order 04/04/2024 04/05/2024 04/06/2024 Acetaminophen (Tylenol) tab 975 mg 975 mg, Oral, Q8H, First dose on Wed04/03/24 at 1915, Until Discontinued, Maximum of 4 grams (4000 mg) per day. 0438 (Given - Provider: Sheba Garvin RN)1318 (Given - Provider: Sandi Anthony, BARBIE)2052 (Given - Provider: Johny Thompson RN) 0545 (Given - Provider: Johny Thompson RN)1411 (Given - Provider: Violette Stephens LPN)2107 (Given - Provider: Johny Thompson RN) 0507 (Given - Provider: Malorie Polo LPN)1316 (Given - Provider: Yesica Arellano, BARBIE) ceFAZolin in dextrose (Ancef) ivpb 2 g (COMPLETED) 2 g, IV Piggyback, ONCALL, 1 dose, Starting on Wed04/04/24 at 1622, Until Wed04/05/24 at 1039 1039 (Given - Provider: ROME Nails) Enoxaparin (Lovenox) inj 40 mg 40 mg, Subcutaneous, Daily(AM), First dose on Wed04/01/24 at 0900, Until Discontinued, If patient is on warfarin, inform provider if daily INR value is 2 or greater!, Admission 0853 (Given - Provider: Sandi Anthony RN) 0900 (Due) 09 (Given - Provider: Yesica Arellano, RN) fluconazole in NSS (Diflucan IV) ivpb 600 mg IV Piggyback, 600 mg (rounded from 549.6 mg = 6 mg/kg 91.6 kg), Q24H, First dose on Wed04/03/24 at 0815, Until Discontinued, Administer over 180 Minutes 0900 (New Bag - Provider: Sandi Anthony RN) 1015 (New Bag - Provider: Vijay So, BRABIE) 0917 (New Bag - Provider: Yesica Arellano, BARBIE)182 (Due: Stopped) Metoprolol Tartrate (Lopressor) tab 12.5 mg 12.5 mg, Oral, BID (.AM/PM), First dose (after last modification) on Wed04/03/24 at 2100, Until Discontinued, Hold for HR less than 60 or SBP below 100 and notify service if dose is held 0853 (Given - Provider: Sandi Anthony RN)2052 (Given - Provider: Johny Thompson, BARBIE) 05 (Given - Provider: Johny Thompson RN - Comment: pt's going to [place])2106 (Given - Provider: Johny Thompson RN) 09 (Given - Provider: Yesica Arellano, RN) Pantoprazole (Protonix) inj 40 mg 40 mg, IV Push, Daily(AM), First dose on Wed03/31/24 at 1015, Until Discontinued, IV push instructions: Flush I.V. Line before and after administration. In-line filter not required. 2-minute infusion: The volume of reconstituted solution (4mg/ml) to be injected may be administered intravenously over at least 2 minutes. ( Dilute each vial with 10 ml of 0.9% saline PF) 0853 (Given - Provider: Sandi Anthnoy RN) 0900 (Due) 09 (Given - Provider: Yesica Arellano, RN) Piperacillin-Tazobactam (Zosyn) 4.5 g in 100 mL NSS ivpb (FOUR hour infusion) IV Piggyback, 4.5 g, Q8HNOW, 15 doses, First dose on Wed04/02/24 at 1315, Last dose on Wed04/07/24 at 0515, Administer over 4 Hours, at 27.5 mL/hr 0439 (New Bag - Provider: Sheba Garvin RN)1320 (New Bag - Provider: Sandi Anthony, RN)2103 (New Bag - Provider: Johny Thompson RN)2130 (Rate Verify - Provider: Johny Thompson RN) 0359 (New Bag - Provider: Johny Thompson RN)1406 (New Bag - Provider: Violette Stephens LPN)2117 (New Bag - Provider: Johny Thompson RN) 0117 (Stopped - Provider: Malorie Polo LPN)0512 (New Bag - Provider: Malorie Polo LPN)0628 (Rate Verify - Provider: Malorie Polo LPN)1315 (Not Given - Provider: Yesica Arellano RN - Reason: Other- Please add reason in Comments - Comment: per lolis r[place] to not give prior to discharge)1829 (Due: Stopped) potassium chloride ER tab 40 mEq (COMPLETED) 40 mEq, Oral, ONCE, On Wed04/04/24 at 1100, For 1 dose, This med should NOT be Crushed or Chewed 1043 (Given - Provider: Sandi Anthony RN) potassium chloride ER tab 40 mEq (COMPLETED) 40 mEq, Oral, ONCE, On Wed04/05/24 at 0500, For 1 dose, This med should NOT be Crushed or Chewed 0545 (Given - Provider: Johny Thompson RN) sodium chloride 0.9 % flush peripheral nikole 3 mL 3 mL, IV Push, QSHIFT, First dose on Wed03/31/24 at 1600, Until Discontinued, Do not flush if lock, PICC, or central line not in place; IV infusing or unable to flush., Admission 0000 (Given - Provider: Sheba Garvin RN)0800 (Not Given - Provider: Sandi Anthony RN - Reason: Parameter(s) Not Met - Comment: infusing)1600 (Not Given - Provider: Sandi Anthony RN - Reason: Parameter(s) Not Met) 0000 (Given - Provider: Johny Thompson RN)0800 (Given - Provider: Violette Stephens LPN)1600 (Given - Provider: Violette Stephens LPN) 0000 (Not Given - Provider: Malorie Polo LPN - Reason: Parameter(s) Not Met - Comment: fluids infusing)0907 (Given - Provider: Yesica Arellano RN) Continuous Medication Order 04/04/2024 04/05/2024 04/06/2024 isolyte-S pH 7.4 infusion (CANCELED) Intravenous, at 75 mL/hr, Plasma-LYTE 148, isolyte-S, and isolyte-S pH 7.4 are considered equivalent - including for MAR barcode scanning., CONTINUOUS, Starting on Wed04/02/24 at 0245, Until Wed04/04/24 at 0653 0103 (Rate Verify - Provider: Sheba Garvin RN)0653 (Stopped - Provider: Sheba Garvin RN) PRN Medication Order 04/04/2024 04/05/2024 04/06/2024 bupivacaine Liposome 10 mL, sodium chloride 0.9 % 10 mL inj (CANCELED) ONCE PRN INTRA PROCEDURE, Starting on Wed04/05/24 at 1139, Until Wed04/05/24 at 1218, Intra-Op 1139 (Given - Provider: Ligia Navarro MD) Carisoprodol (Soma) tab 350 mg 350 mg, Oral, Q6H PRN Muscle spasms, Starting on Wed04/04/24 at 0643, Until Cheryl 04/06/24 at 1829 0651 (Given - Provider: Sheba Garvin RN)1318 (Given - Provider: Sandi Anthony RN)2055 (Given - Provider: Johny Thompson RN) 1825 (Given - Provider: Violette Stephens LPN) 0523 (Given - Provider: Malorie Polo LPN) HYDROmorphone (Dilaudid) inj 0.5 mg (CANCELED) 0.5 mg, IV Push, Q2H PRN Pain, Breakthrough, Starting on Wed04/03/24 at 1935, Until Wed04/04/24 at 0653, Do not use with ELECTRICAL ELECTRONICS ENGINEER (unless directed by provider). May use if patient unable to take oral pain medications., Admission 0159 (Given - Provider: Sheba Garvin, BARBIE) HYDROmorphone (Dilaudid) tab 2 mg 2 mg, Oral, Q4H PRN Pain, Severe, Starting on Wed04/03/24 at 1955, Until Cheryl 04/06/24 at 182 0013 (Given - Provider: Sheba Garvin, BARBIE)0438 (Given - Provider: Sheba Garvin, BARBIE) 0352 (Given - Provider: Johny Thompson, BARBIE) melatonin tab 3 mg 3 mg, Oral, HS PRN Insomnia, Starting on Wed04/03/24 at 2315, Until Wed04/06/24 at 182 0013 (Given - Provider: Sheba Garvin, BARBIE)2149 (Given - Provider: Johny Thompson, BARBIE) naloxone (Narcan) 0.4 MG/ML inj 0.08 mg 0.08 mg, IV Push, PRN Other, If patient is over sedated or Respiratory Rate less than 8, Starting on Wed03/31/24 at 0939, Until Wed04/06/24 at 182, Call provider if patient is over sedated or Respiratory Rate is less than 8, Admission ondansetron (Zofran) inj 4 mg(Linked Group 1) 4 mg, IV Push, Q6H PRN Other, May use for nausea or vomiting if patient unable to take oral ondansetron, Starting on Wed03/31/24 at 0938, Until Cheryl 04/06/24 at 1829, Admission ondansetron ODT (Zofran) tab 4 mg(Linked Group 1) 4 mg, On Tongue, Q6H PRN Nausea, Vomiting, Starting on Wed03/31/24 at 0938, Until Cheryl 04/06/24 at 182, Admission phenol (chlorASEPTIC) spray 3 [place] 3 [place], Oral, Q4H PRN Sore throat, Starting on Wed03/31/24 at 1302, Until Cheryl 04/06/24 at 182, See nursing care plan Simethicone (Mylicon) oral susp 20 mg 20 mg, Oral, Q6H PRN Gas, Indigestion, Starting on Wed04/03/24 at 1641, Until Cheryl 04/06/24 at 1829 sodium chloride IR 0.9 % irrigation (CANCELED) ONCE PRN INTRA PROCEDURE, Starting on Wed04/05/24 at 1059, Until Wed04/05/24 at 1218, Intra-Op 1059 (Given - Provider: Ligia Navarro MD - Comment: Used for pelvic washings/cytology) traMADol (Ultram) tab 50 mg 50 mg, Oral, Q4H PRN Pain, Moderate, Starting on Wed04/03/24 at 1955, Until Cheryl 04/06/24 at 1829 1043 (Given - Provider: Sandi Anthony RN) Linked Groups Order Group 1: ondansetron ODT (Zofran) tab 4 mgJump to med 4 mg, On Tongue, Q6H PRN Nausea, Vomiting, Starting on Wed03/31/24 at 0938, Until Cheryl 04/06/24 at 1829, Admission Or ondansetron (Zofran) inj 4 mgJump to med 4 mg, IV Push, Q6H PRN Other, May use for nausea or vomiting if patient unable to take oral ondansetron, Starting on Wed03/31/24 at 0938, Until Cheryl 04/06/24 at 1829, Admission documented in this encounter Additional Health Concerns Infection Onset Date Last Indicated Resolved Time COVID-19 Rule-Out 04/02/2024 04/02/2024 04/02/2024 11:41 PM EDT Respiratory Rule-Out 04/02/2024 04/03/2024 024 2:23 AM EDT COVID-19 Rule-Out 04/02/2024 04/03/2024 04/03/2024 2:23 AM EDT documented as of this encounter Advance Directives * Full Code (Latest Code Status on File) Date Activated Date Inactivated Comments 03/31/2024 9:41 AM 04/06/2024 6:29 PM Question Answer Comments Discussion of Advance Direct marta occurred with: Not Discussed due to patient's condition Care Teams Director Operating Room Relationship Specialty Start Date End Date Jorge Luis Gil, ALISA [address] [place] [id number] PCP - General Physician Freelance Operator 03/23/24 documented as of this encounter
--- OUTSIDE RECORDS SUMMARY | 2024-04-28 00:56 | External Medical Summary ---
Author Name Unknown Address Unknown Organization [id number]:LAB[facility]ATORY [facility] [place] [address] [place] [address] Laboratory Report Ordering Provider Test Date Status DIVYA DRAKE 04/04/2024 06:55:00 Final Observation Date Value Abnormality Reference (Units ) Status BUN 04/04/2024 06:55:00 9 6-20 (mg/dL) Final Creatinine 04/04/2024 06:55:00 0.5 0.5-1.0 (mg/dL) Final Glomerular filtration rate/1.73 sq M.predicted [Volume Rate/Area] in Serum, Plasma or Blood by Creatinine-based formula (CKD-EPI) 04/04/2024 06:55:00 >90 >=60 (mL/min) Final eGFR is calculated based on the CKD-EPI 2020 equation Sodium 04/04/2024 06:55:00 135 135-146 (m mol/L) Final Potassium 04/04/2024 06:55:00 3.3 Below low normal 3.5 -5.1 (mmol/L) Final Cl 04/04/2024 06:55:00 100 98-107 (mm ol/L) Final CO2 04/04/2024 06:55:00 19 Below low normal 22- 32 (mmol/L) Final Anion gap 04/04/2024 06:55:00 16 Above high normal 7- 15 (mmol/L) Final Glucose 04/04/2024 06:55:00 114 70-120 (mg /dL) Final Calcium 04/04/2024 06:55:00 8.7 8.4-10.2 ( mg/dL) Final Performing Location LAB[facility]ATORY [facility] [place] [address] [place] [address]
--- OUTSIDE RECORDS SUMMARY | 2024-04-28 00:56 | External Medical Summary ---
Author Name Unknown Address Unknown Organization [id number]:[facility] - [address] [place] [address] Laboratory Report Ordering Provider Test Date Status DIVYA DRAKE 04/03/2024 06:12:00 Final Observation Date Value Abnormality Reference (Units ) Status Magnesium 04/03/2024 06:12:00 2.0 1.5-2.6 (m g/dL) Final Performing Location [facility] - [address] [place] [address]
--- OUTSIDE RECORDS SUMMARY | 2024-04-28 00:56 | External Medical Summary ---
Author Name Unknown Address Unknown Organization [id number]:LABORATORY [facility] [place] - [address] [place] [address] Laboratory Report Ordering Provider Test Date Status DIVYA DRAKE 04/06/2024 05:02:00 Final Observation Date Value Abnormality Reference (Units ) Status BUN 04/06/2024 05:02:00 5 Below low normal 6-20 (mg/dL) Final Creatinine 04/06/2024 05:02:00 0.5 0.5-1.0 (mg/dL) Final Glomerular filtration rate/1.73 sq M.predicted [Volume Rate/Area] in Serum, Plasma or Blood by Creatinine-based formula (CKD-EPI) 04/06/2024 05:02:00 >90 >=60 (mL/min) Final eGFR is calculated based on the CKD-EPI 2020 equation Sodium 04/06/2024 05:02:00 143 135-146 (m mol/L) Final Potassium 04/06/2024 05:02:00 4.2 3.5-5.1 (m mol/L) Final Cl 04/06/2024 05:02:00 106 98-107 (mm ol/L) Final CO2 04/06/2024 05:02:00 25 22-32 (mmo l/L) Final Anion gap 04/06/2024 05:02:00 12 7-15 (mmol /L) Final Glucose 04/06/2024 05:02:00 138 Above high normal 70 -120 (mg/dL) Final Calcium 04/06/2024 05:02:00 9.1 8.4-10.2 ( mg/dL) Final Performing Location LABORATORY [facility] [place] - [address] [place] [address]
--- OUTSIDE RECORDS SUMMARY | 2024-04-28 00:56 | External Medical Summary ---
Author Name Unknown Address Unknown Organization K01:LABORATORY [place] [address] [facility] [address] Laboratory Report Ordering Provider Test Date Status RENEEKITA LEZAMASULEMA 04/03/2024 02:27:56 Final Observation Date Value Abnormality Reference (Units) Status Streptococcus pyogenes DNA [Presence] in Throat by ALLA with probe detection 04/03/2024 02:27:56 Negative. No Group A Streptococcus detected by PCR (amplified probe). Negative Final This test was developed and its performance characteristics determined by [employer]. It has not been cleared or approved by the FDA. The laboratory is regulated under CLIA as qualified to perform high- complexity testing. This test is used for clinical purposes. It should not be regarded as investigational or for research. Performing Location LABORATORY [facility] [place] - [facility] [place][note 3] [address] [place] [facility] [address]
--- OUTSIDE RECORDS SUMMARY | 2024-04-28 00:56 | External Medical Summary ---
Author Name Unknown Address Unknown Organization K01:[facility]ORY [place] [address] [facility] [address] Laboratory Report Ordering Provider Test Date Status DIVYA DRAKE 04/04/2024 06:55:00 Final Observation Date Value Abnormality Reference (Units ) Status WBC, Total 04/04/2024 06:55:00 16.25 Above high normal 4.00-10.80 (K/uL) Final RBC 04/04/2024 06:55:00 3.26 3.85-5.15 (M/uL) Final Hemoglobin 04/04/2024 06:55:00 9.6 Below low normal 12.0-15.3 (g/dL) Final HCT 04/04/2024 06:55:00 29.8 Below low normal 36.0-45.2 (%) Final MCV 04/04/2024 06:55:00 91.4 81.5-97.5 (fL) Final MCH 04/04/2024 06:55:00 29.4 27.0-34.0 (pg) Final MCHC 04/04/2024 06:55:00 32.2 32.0-36.0 (g/dL) Final RDW 04/04/2024 06:55:00 13.9 11.5-15.5 (%) Final Platelets 04/04/2024 06:55:00 320 140-400 (K/uL) Final MPV 04/04/2024 06:55:00 9.2 6.6-11.1 (fL) Final Nucleated erythrocytes/100 leukocytes [Ratio] in Blood by Automated count 04/04/2024 06:55:00 0 <=0 (/100 WBCs) Final Performing Location [place] [facility] [place] [address] [facility] [address]
--- OUTSIDE RECORDS SUMMARY | 2024-04-28 00:56 | External Medical Summary ---
Author Name Unknown Address Unknown Organization K01:[facility]ORY [facility] - [address] [place] [address] Laboratory Report Ordering Provider Test Date Status DIVYA DRAKE 04/06/2024 05:02:00 Final Observation Date Value Abnormality Reference (Units ) Status Magnesium 04/06/2024 05:02:00 2.5 1.5-2.6 (m g/dL) Final Performing Location [facility] - [address] [place] [address]
--- OUTSIDE RECORDS SUMMARY | 2024-04-28 00:56 | External Medical Summary ---
Author Name Unknown Address Unknown Organization K01:LABORATORY [facility] [place] - [facility] [address] [place] [address] Laboratory Report Ordering Provider Test Date Status DIVYA DRAKE 04/03/2024 06:12:00 Final Observation Date Value Abnormality Reference (Units ) Status BUN 04/03/2024 06:12:00 10 6-20 (mg/dL) Final Creatinine 04/03/2024 06:12:00 0.5 0.5-1.0 (mg/dL) Final Glomerular filtration rate/1.73 sq M.predicted [Volume Rate/Area] in Serum, Plasma or Blood by Creatinine-based formula (CKD-EPI) 04/03/2024 06:12:00 >90 >=60 (mL/min) Final eGFR is calculated based on the CKD-EPI 2020 equation Sodium 04/03/2024 06:12:00 136 135-146 (m mol/L) Final Potassium 04/03/2024 06:12:00 3.6 3.5-5.1 (m mol/L) Final Cl 04/03/2024 06:12:00 101 98-107 (mm ol/L) Final CO2 04/03/2024 06:12:00 16 Below low normal 22- 32 (mmol/L) Final Anion gap 04/03/2024 06:12:00 19 Above high normal 7- 15 (mmol/L) Final Glucose 04/03/2024 06:12:00 89 70-120 (mg /dL) Final Calcium 04/03/2024 06:12:00 8.8 8.4-10.2 ( mg/dL) Final Performing Location LABORATORY [facility] [place] - [address] [place] [address]
--- OUTSIDE RECORDS SUMMARY | 2024-04-28 00:56 | External Medical Summary ---
Author Name Unknown Address Unknown Organization K01:LABORATORY [facility] [place] - [address] [place] [address] Laboratory Report Ordering Provider Test Date Status LIZA CAMP 04/03/2024 01:11:10 Final ADMITTED patient Observation Date Value Abnormality Reference (Units ) Status Adenovirus DNA [Presence] in Nasopharynx by ALLA with non-probe detection 04/03/2024 01:11:10 Negative Negative Final Human coronavirus 229E RNA [Presence] in Nasopharynx by ALLA with non-probe detection 04/03/2024 01:11:10 Negative Negative Final Human coronavirus HKU1 RNA [Presence] in Nasopharynx by ALLA with non-probe detection 04/03/2024 01:11:10 Negative Negative Final Human coronavirus NL63 RNA [Presence] in Nasopharynx by ALLA with non-probe detection 04/03/2024 01:11:10 Negative Negative Final Human coronavirus OC43 RNA [Presence] in Nasopharynx by ALLA with non-probe detection 04/03/2024 01:11:10 Negative Negative Final SARS-CoV-2 (COVID-19) RNA [Presence] in Nasopharynx by ALLA with non-probe detection 04/03/2024 01:11:10 Negative Negative Final Human metapneumovirus RNA [Presence] in Nasopharynx by ALLA with non-probe detection 04/03/2024 01:11:10 Negative Negative Final Rhinovirus+Enterovirus RNA [Presence] in Nasopharynx by ALLA with non-probe detection 04/03/2024 01:11:10 Negative Negative Final Influenza virus A RNA [Presence] in Nasopharynx by ALLA with non-probe detection 04/03/2024 01:11:10 Negative Negative Final Influenza virus B RNA [Presence] in Nasopharynx by ALLA with non-probe detection 04/03/2024 01:11:10 Negative Negative Final Parainfluenza virus 1 RNA [Presence] in Nasopharynx by ALLA with non-probe detection 04/03/2024 01:11:10 Negative Negative Final Parainfluenza virus 2 RNA [Presence] in Nasopharynx by ALLA with non-probe detection 04/03/2024 01:11:10 Negative Negative Final Parainfluenza virus 3 RNA [Presence] in Nasopharynx by ALLA with non-probe detection 04/03/2024 01:11:10 Negative Negative Final Parainfluenza virus 4 RNA [Presence] in Nasopharynx by ALLA with non-probe detection 04/03/2024 01:11:10 Negative Negative Final Respiratory syncytial virus RNA [Presence] in Nasopharynx by ALLA with non-probe detection 04/03/2024 01:11:10 Negative Negative Final Bordetella pertussis.pertussis toxin promoter region [Presence] in Nasopharynx by ALLA with non-probe detection 04/03/2024 01:11:10 Negative Negative Final Chlamydophila pneumoniae DNA [Presence] in Nasopharynx by ALLA with non-probe detection 04/03/2024 01:11:10 Negative Negative Final Mycoplasma pneumoniae DNA [Presence] in Nasopharynx by ALLA with non-probe detection 04/03/2024 01:11:10 Negative Negative Final Bordetella parapertussis [id number] DNA [Presence] in Nasopharynx by ALLA with non-probe detection 04/03/2024 01:11:10 Negative Negative Final
The primers that detect Rhinovirus may cross react with some Enterorviruses. The validation of bronchial specimens, tracheal aspirates, and throats for this assay was developed and performance characteristics determined by [employer]. The validation of alternate specimen types has not been cleared or approved by the U.S. Food and Drug Administration (FDA). It has been determined that such clearance or approval is not necessary. [facility] Location LABORATORY [facility] [place] - [facility] [place][note 3] [address] [facility] [address]. [facility] [address]
--- OUTSIDE RECORDS SUMMARY | 2024-04-28 00:56 | External Medical Summary ---
Author Name Unknown Address Unknown Organization K01:[facility] - [address] [place] [address] Laboratory Report Ordering Provider Test Date Status DIVYA DRAKE 04/05/2024 03:31:00 Final Observation Date Value Abnormality Reference (Units ) Status Magnesium 04/05/2024 03:31:00 1.8 1.5-2.6 (m g/dL) Final Performing Location LAB[facility] - [address] [place] [address]
--- OUTSIDE RECORDS SUMMARY | 2024-04-28 00:56 | External Medical Summary ---
Author Name Unknown Address Unknown Organization K01:[facility]ORY [facility] - [address] [place] [address] Laboratory Report Ordering Provider Test Date Status DIVYA DRAKE 04/06/2024 05:02:00 Final Observation Date Value Abnormality Reference (Units ) Status Phosphate 04/06/2024 05:02:00 3.6 2.5-4.8 (m g/dL) Final Performing Location LAB[facility] - [address] [place] [address]
--- OUTSIDE RECORDS SUMMARY | 2024-04-28 00:56 | External Medical Summary ---
Author Name Unknown Address Unknown Organization K01:LABORATORY [facility] [place] [facility] - [address] [place] [address] Laboratory Report Ordering Provider Test Date Status LIZA CAMP 04/05/2024 03:31:00 Final Observation Date Value Abnormality Reference (Units ) Status ABO 04/05/2024 03:31:00 A Final RH 04/05/2024 03:31:00 Positive Final RED BLOOD CELL ANTIBODY SCREEN 04/05/2024 03:31:00 Negative Final SPECIMEN EXPIRATION DATE 04/05/2024 03:31:00 04/08/2024 23:59 Final Performing Location LABORATORY [facility] - [address] [place] [address]
--- OUTSIDE RECORDS SUMMARY | 2024-04-28 00:56 | External Medical Summary ---
Author Name Unknown Address Unknown Organization K01[facility] [address] [facility] [address] Laboratory Report Ordering Provider Test Date Status DIVYA DRAKE 04/06/2024 05:02:00 Final Observation Date Value Abnormality Reference (Units ) Status WBC, Total 04/06/2024 05:02:00 14.59 Above high normal 4.00-10.80 (K/uL) Final RBC 04/06/2024 05:02:00 3.53 3.85-5.15 (M/uL) Final Hemoglobin 04/06/2024 05:02:00 10.3 Below low normal 12.0-15.3 (g/dL) Final HCT 04/06/2024 05:02:00 33.0 Below low normal 36.0-45.2 (%) Final MCV 04/06/2024 05:02:00 93.5 81.5-97.5 (fL) Final MCH 04/06/2024 05:02:00 29.2 27.0-34.0 (pg) Final MCHC 04/06/2024 05:02:00 31.2 32.0-36.0 (g/dL) Final RDW 04/06/2024 05:02:00 14.0 11.5-15.5 (%) Final Platelets 04/06/2024 05:02:00 355 140-400 (K/uL) Final MPV 04/06/2024 05:02:00 9.5 6.6-11.1 (fL) Final Nucleated erythrocytes/100 leukocytes [Ratio] in Blood by Automated count 04/06/2024 05:02:00 0 <=0 (/100 WBCs) Final Performing Location LABORATORY [facility] [place] - [address] [facility] [address]
--- OUTSIDE RECORDS SUMMARY | 2024-04-28 00:56 | External Medical Summary ---
Author Name Unknown Address Unknown Organization K01[facility] [address] [address] Laboratory Report Ordering Provider Test Date Status DIVYA DRAKE 04/03/2024 06:11:00 Final Observation Date Value Abnormality Reference (Units ) Status WBC, Total 04/03/2024 06:11:00 16.63 Above high normal 4.00-10.80 (K/uL) Final RBC 04/03/2024 06:11:00 3.50 3.85-5.15 (M/uL) Final Hemoglobin 04/03/2024 06:11:00 10.1 Below low normal 12.0-15.3 (g/dL) Final HCT 04/03/2024 06:11:00 32.8 Below low normal 36.0-45.2 (%) Final MCV 04/03/2024 06:11:00 93.7 81.5-97.5 (fL) Final MCH 04/03/2024 06:11:00 28.9 27.0-34.0 (pg) Final MCHC 04/03/2024 06:11:00 30.8 32.0-36.0 (g/dL) Final RDW 04/03/2024 06:11:00 13.8 11.5-15.5 (%) Final Platelets 04/03/2024 06:11:00 347 140-400 (K/uL) Final MPV 04/03/2024 06:11:00 9.7 6.6-11.1 (fL) Final Nucleated erythrocytes/100 leukocytes [Ratio] in Blood by Automated count 04/03/2024 06:11:00 0 <=0 (/100 WBCs) Final Performing Location LABORATORY [facility] - [address] [facility] [address]
--- OUTSIDE RECORDS SUMMARY | 2024-04-28 00:56 | External Medical Summary ---
Author Name Unknown Address Unknown Organization K01:[facility]ORY [facility] - [address] [place] [address] Laboratory Report Ordering Provider Test Date Status DIVYA DRAKE 04/04/2024 06:55:00 Final Observation Date Value Abnormality Reference (Units ) Status Magnesium 04/04/2024 06:55:00 1.9 1.5-2.6 (m g/dL) Final Performing Location LAB[facility]ORY [facility] - [address] [place] [address]
--- OUTSIDE RECORDS SUMMARY | 2024-04-28 00:56 | External Medical Summary ---
Author Name Unknown Address Unknown Organization K01:LABORATORY [facility] - [address] [place] [address] Laboratory Report Ordering Provider Test Date Status LIZA CAMP 04/03/2024 02:27:56 Final Observation Date Value Abnormality Reference (Units ) Status Streptococcus pyogenes Ag [Presence] in Throat 04/03/2024 02:27:56 Negative Negative Final Performing Location LAB[facility] - [address] [place] [address]
--- OUTSIDE RECORDS SUMMARY | 2024-04-28 00:56 | External Medical Summary ---
Author Name Unknown Address Unknown [facility] [address] [facility] [address] Laboratory Report Ordering Provider Test Date Status DIVYA DRAKE 04/05/2024 03:31:00 Final Observation Date Value Abnormality Reference (Units ) Status WBC, Total 04/05/2024 03:31:00 14.28 Above high normal 4.00-10.80 (K/uL) Final RBC 04/05/2024 03:31:00 3.17 3.85-5.15 (M/uL) Final Hemoglobin 04/05/2024 03:31:00 9.4 Below low normal 12.0-15.3 (g/dL) Final HCT 04/05/2024 03:31:00 29.1 Below low normal 36.0-45.2 (%) Final MCV 04/05/2024 03:31:00 91.8 81.5-97.5 (fL) Final MCH 04/05/2024 03:31:00 29.7 27.0-34.0 (pg) Final MCHC 04/05/2024 03:31:00 32.3 32.0-36.0 (g/dL) Final RDW 04/05/2024 03:31:00 14.0 11.5-15.5 (%) Final Platelets 04/05/2024 03:31:00 265 140-400 (K/uL) Final MPV 04/05/2024 03:31:00 9.2 6.6-11.1 (fL) Final Nucleated erythrocytes/100 leukocytes [Ratio] in Blood by Automated count 04/05/2024 03:31:00 0 <=0 (/100 WBCs) Final Performing Location LABORATORY [facility] [place] - [address] [facility] [address]
--- OUTSIDE RECORDS SUMMARY | 2024-04-28 00:56 | External Medical Summary ---
Author Name Unknown Address Unknown Organization K01:[facility] - [address] [place] [address] Laboratory Report Ordering Provider Test Date Status DIVYA DRAKE 04/04/2024 06:55:00 Final Observation Date Value Abnormality Reference (Units ) Status Phosphate 04/04/2024 06:55:00 2.7 2.5-4.8 (m g/dL) Final Performing Location LAB[facility] - [address] [place] [address]
--- OUTSIDE RECORDS SUMMARY | 2024-04-28 00:57 | External Medical Summary ---
Author Name Unknown Address Unknown Organization K01:LABORATORY [address] [address] Laboratory Report Ordering Provider Test Date Status DIVYA DRAKE 04/02/2024 06:17:00 Final Observation Date Value Abnormality Reference (Units ) Status WBC, Total 04/02/2024 06:17:00 14.11 Above high normal 4.00-10.80 (K/uL) Final RBC 04/02/2024 06:17:00 3.83 3.85-5.15 (M/uL) Final Hemoglobin 04/02/2024 06:17:00 11.4 Below low normal 12.0-15.3 (g/dL) Final HCT 04/02/2024 06:17:00 35.4 Below low normal 36.0-45.2 (%) Final MCV 04/02/2024 06:17:00 92.4 81.5-97.5 (fL) Final MCH 04/02/2024 06:17:00 29.8 27.0-34.0 (pg) Final MCHC 04/02/2024 06:17:00 32.2 32.0-36.0 (g/dL) Final RDW 04/02/2024 06:17:00 13.5 11.5-15.5 (%) Final Platelets 04/02/2024 06:17:00 358 140-400 (K/uL) Final MPV 04/02/2024 06:17:00 9.7 6.6-11.1 (fL) Final Nucleated erythrocytes/100 leukocytes [Ratio] in Blood by Automated count 04/02/2024 06:17:00 0 <=0 (/100 WBCs) Final Performing Location LAB[place] [facility] [place] [address] [facility] [address]
--- OUTSIDE RECORDS SUMMARY | 2024-04-28 00:57 | External Medical Summary ---
Author Name Unknown Address Unknown Organization K01:LAB[facility]ORY [facility] - [address] [place] [address] Laboratory Report Ordering Provider Test Date Status DIVYA DRAKE 04/01/2024 05:49:00 Final Observation Date Value Abnormality Reference (Units ) Status Magnesium 04/01/2024 05:49:00 2.1 1.5-2.6 (m g/dL) Final Performing Location LAB[facility]ORY [facility] - [address] [place] [address]
--- OUTSIDE RECORDS SUMMARY | 2024-04-28 00:57 | External Medical Summary | Summary of Care ---
Author Name Unknown Organization [facility] Address [address] [place] [address] Phone [phone] Care Team Providers Care Automobile Designer Name Role Phone Jorge Luis Gil PA-C Primary Care Provider [phone] Encounter Details Date Type Department Care Team (Latest Contact Info) Description 03/29/2024 3:05 PM EDT - 03/29/2024 11:59 PM EDT Hospital Encounter Radiology Film File [address] [place] [address] Arrived Discharge Disposition: Home - Self Care Allergies Active Allergy Reactions Criticality Noted Date Comments Sulfa Antibiotics Other (Please comment) 2023 Pt states she had a reaction as a child documented as of this encounter (statuses as of 04/01/2024) Medications No known medicationsdocumented as of this encounter (statuses as of 04/01/2024) Active Problems Problem Noted Date Diagnosed Date 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 HTN (hypertension) 03/31/2024 Abdominal pain, epigastric 03/31/2024 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 Cancer related pain 03/31/2024 documented as of this encounter (statuses as of 04/01/2024) Social History Tobacco Use Types Packs/Day Years Used Date Smoking Tobacco: Never Assessed Sex and Gender Information Value Date Recorded Sex Assigned at Not on file Gender Identity Not on file Sexual Orientation Not on file Job Start Date Occupation Industry Not on file Not on file Not on file documented as of this encounter Plan of Treatment Upcoming Encounters Date Type Department Care Team (Late st Contact Info) Description 04/13/2024 12:15 PM EDT Office Visit Hematology/Oncology State Sania Merino [address] [facility] [place], [place] [address] Howie Candelaria MD [address] [facility] [place] [address] Health Maintenance Due Date Last Done Comments [...] of 2) 2015 COVID-19 Vaccine (3 - 2022-2 4 season) 2023 02/26/2021, 02/05/2021 Influenza Vaccine (FLU shot) (Season Ended) 2024 GFR 04/01/2025 04/01/2024, 03/31/2024 Diabetes Screening 04/01/2027 04/01/2024, 03/31/2024 GARDASIL-HPV IMMUNIZATION SERIES Aged Out No longer eligible b ased on patient's age to complete this topic MENINGOCOCCAL (MENACTRA/MENVEO) Aged Out No longer eligible b ased on patient's age to complete this topic Pneumococcal Vaccine: Pediatrics (0 to 5 Years) and At-Risk Patients (6 to 64 Years) Aged Out No longer eligible b ased on patient's age to complete this topic documented as of this encounter Medical Devices Not on filedocumented as of this encounter Procedures Procedure Name Priority Date/Time Associated Diagnosis Comments RADIOLOGY EXAM - PET (IMAGES ONLY, NO REPORT) Routine 03/29/2024 3:05 PM EDT documented in this encounter Results * RADIOLOGY EXAM - PET (IMAGES ONLY, NO REPORT) (03/29/2024 3:05 PM EDT) 03/29/2024 3:01 PM EDT Narrative Scheduling, Silent - 03/31/2024 12:35 PM EDT This is an imaging study not interpreted or resulted by a [facility] or [facility] contracted radiologist. Horace Yu MD RAD NUCLEAR DC D documented in this encounter Advance Directives * Full Code (Latest Code Status on File) Date Activated Date Inactivated Comments 03/31/2024 9:41 AM Question Answer Comments Discussion of Advance Direct marta occurred with: Not Discussed due to patient's condition Care Teams Automobile Designer Relationship Specialty Start Date End Date Jorge Luis Gil, PANikkiC [address] [place] [id number] PCP - General Physician Renewable Energy Broker 03/23/24 documented as of this encounter
--- OUTSIDE RECORDS SUMMARY | 2024-04-28 00:57 | External Medical Summary | Summary of Care ---
Author Name Unknown Organization [facility] Address [address] [place] [address] Phone [phone] Care Team Providers Care Design Engineering Technician Name Role Phone Jorge Luis Gil PA-C Primary Care Provider +1 -[phone] Encounter Details Date Type Department Care Team (Latest Contact Info) Description 03/31/2024 5:00 AM EDT - 03/31/2024 9:26 AM EDT Hospital Encounter Radiology Film File [address] [place] [address] Arrived Discharge Disposition: Home - Self Care Medications Medication Sig Dispensed Refills Start Date [...] and 1 Tablet in the evening. Suspended HYDROcodone-Acetamin ophen 7.5-325 MG Oral Tablet Take 1 Tablet [...] for Sleep. Suspended Vitamin D3 50 MCG (1999 UT) Oral Capsule Take 1 Capsule by mouth in the morning. Suspended documented as of this encounter (statuses [...] PM EDT Office Visit Hematology/Oncology [place] [place] [address] [place], [place] [address] Howie Candelaria MD [address] [place] [address] Health Maintenance Due Date Last Done Comments [...] Date/Time Associated Diagnosis Comments RADIOLOGY EXAM - CT (IMAGES ONLY, NO REPORT) Routine 03/31/2024 5:00 AM EDT documented in this encounter Results * RADIOLOGY EXAM - CT (IMAGES ONLY, NO REPORT) (03/31/2024 5:00 AM EDT) 03/31/2024 4:59 AM EDT Narrative Scheduling, Silent - 03/31/2024 12:35 PM EDT This is an imaging study not interpreted or resulted by a [facility] or [facility] contracted radiologist. Horace Yu MD RAD CT documented in this encounter Advance Directives * Full Code (Latest Code Status on File) Date Activated Date Inactivated Comments 03/31/2024 9:41 AM Question Answer Comments Discussion of Advance Direct marta occurred with: Not Discussed due to patient's condition Care Teams Design Engineering Technician Relationship Specialty Start Date End Date Jorge Luis Gil, PANikkiC [address] [place] [address] PCP - General Physician Solar Energy Installation Manager 03/23/24 documented as of this encounter
--- OUTSIDE RECORDS SUMMARY | 2024-04-28 00:57 | External Medical Summary ---
Author Name Unknown Address Unknown Organization [id number]:[facility] [place] [facility] [address] [place] [address] Laboratory Report Ordering Provider Test Date Status DIVYA DRAKE 04/02/2024 06:17:00 Final Observation Date Value Abnormality Reference (Units ) Status BUN 04/02/2024 06:17:00 10 6-20 (mg/dL) Final Creatinine 04/02/2024 06:17:00 0.6 0.5-1.0 (mg/dL) Final Glomerular filtration rate/1.73 sq M.predicted [Volume Rate/Area] in Serum, Plasma or Blood by Creatinine-based formula (CKD-EPI) 04/02/2024 06:17:00 >90 >=60 (mL/min) Final eGFR is calculated based on the CKD-EPI 2020 equation Sodium 04/02/2024 06:17:00 137 135-146 (m mol/L) Final Potassium 04/02/2024 06:17:00 4.0 3.5-5.1 (m mol/L) Final Cl 04/02/2024 06:17:00 98 98-107 (mm ol/L) Final CO2 04/02/2024 06:17:00 17 Below low normal 22- 32 (mmol/L) Final Anion gap 04/02/2024 06:17:00 22 Above high normal 7- 15 (mmol/L) Final Glucose 04/02/2024 06:17:00 90 70-120 (mg /dL) Final Calcium 04/02/2024 06:17:00 9.4 8.4-10.2 ( mg/dL) Final Performing Location [facility] [place] [address] [place] [address]
--- OUTSIDE RECORDS SUMMARY | 2024-04-28 00:57 | External Medical Summary ---
Author Name Unknown Address Unknown Organization [id number]:[facility] [place] [address] [facility] [address] Laboratory Report Ordering Provider Test Date Status DIVYA DRAKE 04/01/2024 05:49:00 Final Observation Date Value Abnormality Reference (Units ) Status WBC, Total 04/01/2024 05:49:00 10.05 4.00-10.80 (K/uL) Final RBC 04/01/2024 05:49:00 3.64 3.85-5.15 (M/uL) Final Hemoglobin 04/01/2024 05:49:00 10.7 Below low normal 12.0-15.3 (g/dL) Final HCT 04/01/2024 05:49:00 32.7 Below low normal 36.0-45.2 (%) Final MCV 04/01/2024 05:49:00 89.8 81.5-97.5 (fL) Final MCH 04/01/2024 05:49:00 29.4 27.0-34.0 (pg) Final MCHC 04/01/2024 05:49:00 32.7 32.0-36.0 (g/dL) Final RDW 04/01/2024 05:49:00 13.4 11.5-15.5 (%) Final Platelets 04/01/2024 05:49:00 258 140-400 (K/uL) Final MPV 04/01/2024 05:49:00 10.5 6.6-11.1 (fL) Final Nucleated erythrocytes/100 leukocytes [Ratio] in Blood by Automated count 04/01/2024 05:49:00 0 <=0 (/100 WBCs) Final Performing Location LAB[facility]ORY [facility] [place] - [address] [place] [address]
--- OUTSIDE RECORDS SUMMARY | 2024-04-28 00:57 | External Medical Summary ---
Author Name Unknown Address Unknown Organization [id number]:[facility]ATORY [facility] - [address] [place] [address] Laboratory Report Ordering Provider Test Date Status DIVYA DRAKE 04/02/2024 06:17:00 Final Observation Date Value Abnormality Reference (Units ) Status Magnesium 04/02/2024 06:17:00 2.0 1.5-2.6 (m g/dL) Final Performing Location [facility] - [address] [place] [address]
--- OUTSIDE RECORDS SUMMARY | 2024-04-28 00:57 | External Medical Summary | Summary of Care ---
Author Name Unknown Organization [facility] Address [address] [place] [address] Phone [phone] Care Team Providers Care Field Cane Scaler Helper Name Role Phone Jorge Luis Gil PA-C Primary Care Provider +1 -[phone] Encounter Details Date Type Department Care Team (Late st Contact Info) Description 03/29/2024 Orders Only Unspecified Department Horace Yu MD [address] [place] [address] Allergies Active Allergy Reactions Criticality Noted Date Comments Sulfa Antibiotics Other (Please comment) 2023 Pt states she had a reaction as a child documented as of this encounter (statuses as of 03/31/2024) Medications No known medicationsdocumented as of this encounter (statuses as of 03/31/2024) Active Problems Problem Noted Date Diagnosed Date 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 HTN (hypertension) 03/31/2024 Abdominal pain, epigastric 03/31/2024 documented as of this encounter (statuses as of 03/31/2024) Social History Tobacco Use Types Packs/Day Years Used Date Smoking Tobacco: Never Assessed Sex and Gender Information Value Date Recorded Sex Assigned at Not on file Gender Identity Not on file Sexual Orientation Not on file documented as of this encounter Plan of Treatment Upcoming Encounters Date Type Department Care Team (Late st Contact Info) Description 04/13/2024 12:15 PM EDT Office Visit Hematology/Oncology [facility] [place] [address] [place] [phone] Howie Candelaria MD [address] [place] [address] Health Maintenance Due Date Last Done Comments [...] Vaccine (FLU shot) (Season Ended) 2024 GFR 03/31/2025 03/31/2024 Diabetes Screening 03/31/2027 03/31/2024 GARDASIL-HPV IMMUNIZATION SERIES Aged Out No [...] interpreted or resulted by a [facility] or [facility] contracted radiologist. Horace Cavanaugh documented in this encounter Advance Directives * Full Code (Latest Code Status on File) Date Activated Date Inactivated Comments 03/31/2024 9:41 AM Question Answer Comments Discussion of Advance Direct marta occurred with: Not Discussed due to patient's condition Care Teams Field Cane Scaler Helper Relationship Specialty Start Date End Date Jorge Luis Gil, PA-C [address] [place] [address] PCP - General Physician Orchid Worker 03/23/24 documented as of this encounter
--- OUTSIDE RECORDS SUMMARY | 2024-04-28 00:57 | External Medical Summary | Summary of Care ---
Author Name Unknown Organization [facility] Address [address] [place] [address] Phone [phone] Care Team Providers Care Computer Programmer Name Role Phone Jorge Luis Gil PA-C Primary Care Provider +1 -[phone] Encounter Details Date Type Department Care Team (Late st Contact Info) Description 03/31/2024 Orders Only Unspecified Department Horace Yu MD [address] [place] [address] Allergies Active Allergy Reactions Criticality Noted Date Comments Sulfa Antibiotics Other (Please comment) 2023 Pt states she had a reaction as a child documented as of this encounter (statuses as of 03/31/2024) Medications Medication Sig Dispensed Refills Start Date [...] for Sleep. Suspended Vitamin D3 50 MCG (1999) Oral Capsule [...] Office Visit Hematology/Oncology [place] [address] [place] [phone] Howie Candelaria MD [address] [place] [address] Health Maintenance Due Date Last Done Comments [...] interpreted or resulted by a [facility] or [facility] contracted radiologist. Horace Yu MD RAD CT documented in this encounter Advance Directives * Full Code (Latest Code Status on File) Date Activated Date Inactivated Comments 03/31/2024 9:41 AM Question Answer Comments Discussion of Advance Direct marta occurred with: Not Discussed due to patient's condition Care Teams Computer Programmer Relationship Specialty Start Date End Date Jorge Luis Gil, PANikkiC [address] [place] [address] PCP - General Physician Field Marketing Coordinator 03/23/24 documented as of this encounter
--- OUTSIDE RECORDS SUMMARY | 2024-04-28 00:57 | External Medical Summary ---
Author Name Unknown Address Unknown Organization K01:[facility]AT[facility] - [address] [place] [address] Laboratory Report Ordering Provider Test Date Status DIVYA DRAKE 04/02/2024 06:17:00 Final Observation Date Value Abnormality Reference (Units ) Status Phosphate 04/02/2024 06:17:00 3.7 2.5-4.8 (m g/dL) Final Performing Location [facility] - [address] [place] [address]
--- OUTSIDE RECORDS SUMMARY | 2024-04-28 00:57 | External Medical Summary ---
Author Name Unknown Address Unknown Organization [id number]:[facility] - [address] [place] [address] Laboratory Report Ordering Provider Test Date Status DIVYA DRAKE 04/01/2024 05:49:00 Final Observation Date Value Abnormality Reference (Units ) Status Phosphate 04/01/2024 05:49:00 4.1 2.5-4.8 (m g/dL) Final Performing Location [facility] - [address] [place] [address]
--- OUTSIDE RECORDS SUMMARY | 2024-04-28 00:57 | External Medical Summary ---
Author Name Unknown Address Unknown Organization [id number]:[facility]ORY [facility] [place] [address] [place] [address] Laboratory Report Ordering Provider Test Date Status DIVYA DRAKE 04/01/2024 05:49:00 Final Observation Date Value Abnormality Reference (Units ) Status BUN 04/01/2024 05:49:00 10 6-20 (mg/dL) Final Creatinine 04/01/2024 05:49:00 0.6 0.5-1.0 (mg/dL) Final Glomerular filtration rate/1.73 sq M.predicted [Volume Rate/Area] in Serum, Plasma or Blood by Creatinine-based formula (CKD-EPI) 04/01/2024 05:49:00 >90 >=60 (mL/min) Final eGFR is calculated based on the CKD-EPI 2020 equation Sodium 04/01/2024 05:49:00 135 135-146 (m mol/L) Final Potassium 04/01/2024 05:49:00 4.0 3.5-5.1 (m mol/L) Final Cl 04/01/2024 05:49:00 97 Below low normal 98- 107 (mmol/L) Final CO2 04/01/2024 05:49:00 19 Below low normal 22- 32 (mmol/L) Final Anion gap 04/01/2024 05:49:00 19 Above high normal 7- 15 (mmol/L) Final Glucose 04/01/2024 05:49:00 69 Below low normal 70- 120 (mg/dL) Final Calcium 04/01/2024 05:49:00 9.1 8.4-10.2 ( mg/dL) Final Performing Location LABORATORY [facility] [place] - [address] [place] [address]
--- OUTSIDE RECORDS SUMMARY | 2024-04-28 00:58 | External Medical Summary | Summary of Care ---
Author Name Unknown Organization [facility] Address [address] [facility] [address] Phone [phone] Care Team Providers Care Pararescue Craftsman Name Role Phone Jorge Luis Gil PA-C Primary Care Provider +1 -[phone] Reason for Referral * Evaluate & Treat - Unlimited Visits (Within 10 days (routine)) - Pending Review Specialty Diagnoses / Procedures Referred By Denise murillo Referred To Contact Family Medicine Diagnoses Hospital discharge follow-up Nicole Doll PA-C [address] [place] [address] Referral ID Status Reason Start Date Expiration Date Visits Requested Visits Authorized [id number] Pending Review Specialty Services Required 03/23/[phone] Question Answer Referral Priority Within 10 days (routine) Where should this appointment be scheduled? Aretha Comments Hospital discharge Encounter Details Date Type Department Care Team (Late st Contact Info) Description 03/23/2024 Orders Only Access [place], [address] *DO NOT REMOVE THIS DEPARTMENT* [place] [address] Request, External Referral Hospital discharge follow-up* Social History Tobacco Use Types Packs/Day Years Used Date Smoking Tobacco: Never Assessed Sex and Gender Information Value Date Recorded Sex Assigned at Not on file Gender Identity Not on file Sexual Orientation Not on file documented as of this encounter Plan of Treatment Scheduled Referrals Name Type Priority Associated Diagnoses Orde r Schedule FAMILY PRACTICE REFERRAL OP Referral Within 10 days (routine) Hospital discharge follow-up Ordered: 03/23/2024 Health Maintenance Due Date Last Done Comments Lipid Panel 1965 Depression Screening 1977 HIV Screening 1980 Hepatitis C Screening 1983 DTaP,Tdap,and Td Vaccines (1 - Tdap) 1984 Hepatitis B (1 of 3 - 19+ 3- dose series) 1984 Pap Smear 1986 Cervical Cancer Screening 1995 HPV/Co-Test 1995 Mammogram 2005 Cologuard 2010 Colonoscopy 2010 Colorectal Cancer Screening 2010 Fecal Occult Blood Test 2010 Sigmoidoscopy 2010 Zoster Vaccines (1 of 2) 2015 COVID-19 Vaccine (2022-2 4 season) 2023 Influenza Vaccine (FLU shot) (Season Ended) 2024 GARDASIL-HPV IMMUNIZATION SERIES Aged Out No longer eligible based on patient's age to complete this topic MENINGOCOCCAL (MENACTRA/MENVEO) Aged Out No longer eligible based on patient's age to complete this topic Pneumococcal Vaccine: Pediat rics (0 to 5 Years) and At-Risk Patients (6 to 64 Years) Aged Out No longer eligible b ased on patient's age to complete this topic documented as of this encounter Medical Devices Not on filedocumented as of this encounter Visit Diagnoses Diagnosis Hospital discharge follow-up- Primary Other follow-up examination documented in this encounter Care Teams Pararescue Craftsman Relationship Specialty Start Date End Date Jorge Luis Gil, TRANGC [address] [place] [address] PCP - General Physician Analysis Tester 03/23/24 documented as of this encounter
--- OUTSIDE RECORDS SUMMARY | 2024-04-28 00:58 | External Medical Summary ---
Author Name Unknown Address Unknown Organization K01:LABORATORY [facility] - [address] [place] [address] Laboratory Report Ordering Provider Test Date Status DIVYA DRAKE 03/31/2024 10:08:00 Final Observation Date Value Abnormality Reference (Units ) Status Lactic Acid 03/31/2024 10:08:00 0.6 0.4-2.0 (mmol/L) Final Performing Location LABORATORY [facility] - [address] [place] [address]
--- OUTSIDE RECORDS SUMMARY | 2024-04-28 00:58 | External Medical Summary | Summary of Care ---
Author Name Unknown Organization [facility] Address [address] [facility] [address] Phone [phone] Care Team Providers Care Snow Ranger Name Role Phone Jorge Luis Gil PA-C Primary Care Provider +1 -[phone] Encounter Details Date Type Department Care Team (Late st Contact Info) Description 03/07/2024 Result Scan Unspecified Department Howie Candelaria MD [address] [facility] [address] <No scans attached> Social History Tobacco Use Types Packs/Day Years Used Date Smoking Tobacco: Never Assessed Sex and Gender Information Value Date Recorded Sex Assigned at Not on file Gender Identity Not on file Sexual Orientation Not on file documented as of this encounter Plan of Treatment Health Maintenance Due Date Last Done Comments [...] of 2) 2015 COVID-19 Vaccine ( - 2022-2 4 season) 2023 Influenza Vaccine (FLU shot) [...] Procedure Name Priority Date/Time Associated Diagnosis Comments PATHOLOGY SCANNED RESULT 03/07/2024 documented in this encounter Results * PATHOLOGY SCANNED RESULT (03/07/2024) 03/07/2024 Howie Candelaria MD PATHOLOGY documented in this encounter Care Teams Snow Ranger Relationship Specialty Start Date End Date Jorge Luis Gil, PANikkiC [address] [place] [address] PCP - General Physician It Security Administrator 03/23/24 documented as of this encounter
--- OUTSIDE RECORDS SUMMARY | 2024-04-28 00:58 | External Medical Summary | Summary of Care ---
Author Name Unknown Organization [facility] [address] [facility] [address] Phone [phone] Care Team Providers Care Frame Catcher Name Role Phone Jorge Luis Gil PA-C Primary Care Provider +1 -[phone] Encounter Details Date Type Department Care Team (Late st Contact Info) Description 03/03/2024 Result Scan Unspecified Department <No scans attached> Social History Tobacco Use [...] Name Priority Date/Time Associated Diagnosis Comments RADIOLOGY SCANNED RESULT 03/06/2024 RADIOLOGY SCANNED RESULT 03/04/2024 OUTSIDE LAB RESULTS 03/03/2024 RADIOLOGY SCANNED RESULT 03/03/2024 documented in this encounter Results * RADIOLOGY SCANNED RESULT (03/06/2024) 03/06/2024 No Physician Data Unknown DIAGNOSTIC RAD IOLOGY SERVICES * RADIOLOGY SCANNED RESULT (03/04/2024) 03/04/2024 No Physician Data Unknown DIAGNOSTIC RAD IOLOGY SERVICES * RADIOLOGY SCANNED RESULT (03/03/2024) 03/03/2024 No Physician Data Unknown DIAGNOSTIC RAD IOLOGY SERVICES * OUTSIDE LAB RESULTS (03/03/2024) 03/03/2024 No Physician Data Unknown LABORATORY documented in this encounter Care Teams Frame Catcher Relationship Specialty Start Date End Date Jorge Luis Gil PA-C [address] [place] [address] PCP - General Physician Rn Occupational 03/23/24 documented as of this encounter
--- OUTSIDE RECORDS SUMMARY | 2024-04-28 00:58 | External Medical Summary ---
Author Name Unknown Address Unknown Organization K01:[facility] [place] [address] [facility] [address] [place] [address] Laboratory Report Ordering Provider Test Date Status DIVYA DRAKE 03/31/2024 10:08:00 Final Observation Date Value Abnormality Reference (Units ) Status BUN 03/31/2024 10:08:00 10 6-20 (mg/dL) Final Creatinine 03/31/2024 10:08:00 0.7 0.5-1.0 (mg/dL) Final Glomerular filtration rate/1.73 sq M.predicted [Volume Rate/Area] in Serum, Plasma or Blood by Creatinine-based formula (CKD-EPI) 03/31/2024 10:08:00 >90 >=60 (mL/min) Final eGFR is calculated based on the CKD-EPI 2020 equation Sodium 03/31/2024 10:08:00 134 Below low normal 135 -146 (mmol/L) Final Potassium 03/31/2024 10:08:00 4.2 3.5-5.1 (m mol/L) Final Cl 03/31/2024 10:08:00 99 98-107 (mm ol/L) Final CO2 03/31/2024 10:08:00 25 22-32 (mmo l/L) Final Anion gap 03/31/2024 10:08:00 10 7-15 (mmol /L) Final Glucose 03/31/2024 10:08:00 93 70-120 (mg /dL) Final Calcium 03/31/2024 10:08:00 8.8 8.4-10.2 ( mg/dL) Final Performing Location [facility] [place] [address] [place] [address]
--- OUTSIDE RECORDS SUMMARY | 2024-04-28 00:58 | External Medical Summary ---
Author Name Unknown Address Unknown Organization K01:[facility] [place] [address] [facility] [address] Laboratory Report Ordering Provider Test Date Status DIVYA DRAKE 03/31/2024 10:08:00 Final Observation Date Value Abnormality Reference (Units ) Status WBC, Total 03/31/2024 10:08:00 7.51 4.00-10.80 (K/uL) Final RBC 03/31/2024 10:08:00 3.28 3.85-5.15 (M/uL) Final Hemoglobin 03/31/2024 10:08:00 9.8 Below low normal 12.0-15.3 (g/dL) Final HCT 03/31/2024 10:08:00 30.7 Below low normal 36.0-45.2 (%) Final MCV 03/31/2024 10:08:00 93.6 81.5-97.5 (fL) Final MCH 03/31/2024 10:08:00 29.9 27.0-34.0 (pg) Final MCHC 03/31/2024 10:08:00 31.9 32.0-36.0 (g/dL) Final RDW 03/31/2024 10:08:00 13.4 11.5-15.5 (%) Final Platelets 03/31/2024 10:08:00 245 140-400 (K/uL) Final MPV 03/31/2024 10:08:00 10.2 6.6-11.1 (fL) Final Nucleated erythrocytes/100 leukocytes [Ratio] in Blood by Automated count 03/31/2024 10:08:00 0 <=0 (/100 WBCs) Final Performing Location [facility]ORY [facility] [address] [facility] [address]
--- OUTSIDE RECORDS SUMMARY | 2024-04-28 00:58 | External Medical Summary ---
Author Name Unknown Address Unknown Organization K01:LABORATORY [facility] - [address] [place] [address] Laboratory Report Ordering Provider Test Date Status DIVYA DRAKE 03/31/2024 10:08:00 Final Observation Date Value Abnormality Reference (Units ) Status ABO 03/31/2024 10:08:00 A Final RH 03/31/2024 10:08:00 Positive Final Performing Location LAB[facility]ORY [facility] - [address] [place] [address]
--- OUTSIDE RECORDS SUMMARY | 2024-04-28 00:58 | External Medical Summary | Summary of Care ---
Author Name Unknown Organization [facility] Address [address] [facility] [address] Phone [phone] Care Team Providers Care Print Shop Chief Clerk Name Role Phone Jorge Luis Gil PA-C Primary Care Provider +1 -[phone] Reason for Referral * Opinion/Recommendation - Change # of Visits to 1 (Within 10 days (routine)) - Pending Review Specialty Diagnoses / Procedures Referred By Contac t Referred To Contact Hematology/Oncology / Hematology Oncology Diagnoses Malignant neoplasm of stomach (HCC) Other diseases of stomach and duodenum Walter Morgan DO [address] [place] [facility] [address] [place] [address] Referral ID Status Reason Start Date Expiration Date Visits Requested Visits Authorized [id number] Pending Review Specialty Services Required 03/23/2024 1 1 Question Answer Referral Priority Within 10 days (routine) Where should this appointment be scheduled? Aretha Reason for Referral Other - Please Comment Comments Malignant neoplasm of stomach Encounter Details Date Type Department Care Team (Late st Contact Info) Description 03/23/2024 Orders Only [facility], [address] *DO NOT REMOVE THIS DEPARTMENT* [place] [address] Request, External Referral Malignant neoplasm of stomach (HCC)*; Other diseases of stomach and duodenum Social History Tobacco Use Types Packs/Day Years Used Date Smoking Tobacco: Never Assessed Sex and Gender Information Value Date Recorded Sex Assigned at Not on file Gender Identity Not on file Sexual Orientation Not on file documented as of this encounter Plan of Treatment Scheduled Referrals Name Type Priority Associated Diagnoses Orde r Schedule HEMATOLOGY/ONCOLOGY REFERRAL OP Referral Within 10 days (routine) Malignant neoplasm of stomach (HCC) Other diseases of stomach and duodenum Ordered: 03/23/2024 Health Maintenance Due Date Last [...] Primary Malignant neoplasm of stomach, unspecified site Other diseases of stomach and duodenum documented in this encounter Care Teams Print Shop Chief Clerk Relationship Specialty Start Date End Date Jorge Luis Gil, PANikkiC [address] [place] [phone] PCP - General Physician Integrated Marketing Manager 03/23/24 documented as of this encounter
--- OUTSIDE RECORDS SUMMARY | 2024-04-28 00:58 | External Medical Summary ---
Author Name Unknown Address Unknown Organization K01:[facility] [place] [address] [facility] [place] [address] Laboratory Report Ordering Provider Test Date Status DIVYA DRAKE 03/31/2024 10:08:00 Final Observation Date Value Abnormality Reference (Units ) Status SYNC LEUKOCYTES IN BLOOD BY AUTOMATED COUNT 03/31/2024 10:08:00 7.51 4.00-10.80 (K/uL) Final Segs 03/31/2024 10:08:00 74.8 40.0-75.0 (%) Final Lymphs % 03/31/2024 10:08:00 11.1 Below low normal 18.0-42.0 (%) Final Monos 03/31/2024 10:08:00 12.9 Above high normal 1.0-11.0 (%) Final Eosinophils 03/31/2024 10:08:00 0.5 0.0-6.0 (%) Final Basos 03/31/2024 10:08:00 0.3 0.0-2.0 (%) Final Immature Granulocyte, Percent 03/31/2024 10:08:00 0.4 0.0-2.0 (%) Final Absolute Segs 03/31/2024 10:08:00 5.62 1.80-7.70 (K/uL) Final Lymphs, absolute 03/31/2024 10:08:00 0.83 Below low normal 1.00-4.80 (K/ul) Final Monos, Abs 03/31/2024 10:08:00 0.97 0.00-1.10 (K/uL) Final Eos, Abs 03/31/2024 10:08:00 0.04 0.00-0.70 (K/uL) Final Basos, Abs 03/31/2024 10:08:00 0.02 0.00-0.20 (K/uL) Final Immature Granulocytes, Number 03/31/2024 10:08:00 0.03 0.00-0.20 (K/uL) Final Performing Location [facility] [place] [facility] [address] Jacky Kaplan. [facility] [address]
--- OUTSIDE RECORDS SUMMARY | 2024-04-28 00:58 | External Medical Summary ---
Author Name Unknown Address Unknown Organization K01:LABORATORY [facility] - [address] [place] [address] Laboratory Report Ordering Provider Test Date Status DIVYA DRAKE 03/31/2024 10:08:00 Final Observation Date Value Abnormality Reference (Units ) Status ABO 03/31/2024 10:08:00 A Final RH 03/31/2024 10:08:00 Positive Final RED BLOOD CELL ANTIBODY SCREEN 03/31/2024 10:08:00 Negative Final SPECIMEN EXPIRATION DATE 03/31/2024 10:08:00 04/03/2024 23:59 Final Performing Location LAB[facility]ORY [facility] - [address] [place] [address]
--- OUTSIDE RECORDS SUMMARY | 2024-04-28 00:58 | External Medical Summary | Summary of Care ---
Author Name Unknown Organization [facility] Address [address] [facility] [address] Phone [phone] Care Team Providers Care Experimental Psychologist Name Role Phone Jorge Luis Gil PA-C Primary Care Provider +1 [phone] Encounter Details Date Type Department Care Team (Late st Contact Info) Description 03/24/2024 Orders Only Hematology/Oncology [place]ari [place] [address] [facility] [place] [address] Howie Candelaria MD [address] [place] [address] Social History Tobacco Use Types Packs/Day Years [...] Name Priority Date/Time Associated Diagnosis Comments UPPER ENDOSCOPY, OUTSIDE PROCEDURE Routine 03/07/2024 XR CHEST 1 VIEW Routine 03/03/2024 documented in this encounter Results * UPPER ENDOSCOPY, OUTSIDE PROCEDURE (03/07/2024) 03/07/2024 Woody Stephenson DO GASTRO UPPER [facility] Organization Address City/State/ZIP Co de Phone Number OUTSIDE LAB (SEE SCANNED REPORT) * XR CHEST 1 VIEW (03/03/2024) Anatomical Region Laterality Modality Chest Other 03/03/2024 Nicole Doll PA-C RADIOLOGY (R AD GENERAL) documented in this encounter Care Teams Experimental Psychologist Relationship Specialty Start Date End Date Jorge Luis Gil PA-C [address] [place] [id number] PCP - General Physician Marble Supervisor 03/23/24 documented as of this encounter
[2024-04-28] MEDS: ONDANSETRON INJ 2 MG/ML 2 ML VIAL IV PRN (02:26)
[2024-04-28] MEDS: ACETAMINOPHEN 1,000 MG/100 ML VIAL IV SCH (02:28)
[2024-04-28] MEDS: SIMETHICONE 80 MG CHEW PO PRN (02:30)
[2024-04-28 07:22] LABS: Hematocrit (blood only) 31.1 % (37.0-47.0); Hemoglobin 9.7 g/dl (12.0-16.0); Mean Corpuscular Hemoglobin 28.6 pg (25.0-34.0); Mean Corpuscular Hgb Conc 31.2 g/dL (32.0-36.0); Mean Corpuscular Volume 91.7 fL (80.0-100.0); Mean Platelet Volume 10.6 fL (9.4-12.4); Platelet Count 200 K/uL (130-400); RDW Coefficient of Variation 15.5 % (11.5-14.5); Red Blood Count 3.39 M/uL (4.20-5.40); White Blood Count 5.76 K/ul (4.8-10.8)
[2024-04-28 07:41] LABS: Albumin Level 3.1 gm/dl (3.4-5.0); BUN Creatinine Ratio 31.7 (10-20); Bilirubin,Total 0.8 mg/dl (0.2-1.0); Calcium 8.4 mg/dl (8.6-10.3); Creatinine Clr Calc Pharmacy 118.3 ml/min; Est GFR (African American) 116.4 ml/min; Est GFR (Non-African American) 100.5 ml/min; Globulin 3.2 gm/dl (2.5-4.0); Potassium 3.7 mmol/L (3.5-5.1); Total Protein 6.3 gm/dl (6.0-8.3)
--- OUTSIDE RECORDS SUMMARY | 2024-04-28 08:41 | External Medical Summary | Summary of Care ---
Author Name Unknown Organization [facility] Address [address] [facility] [place] [address] Phone [phone] Care Team Providers Care Pet Feeder Name Role Phone Jorge Luis Gil PA-C Primary Care Provider +1 [phone] Reason for Visit * Reason Onset Date Comments Advice 04/24/2024 Bari Encounter Details Date Type Department Care Team (Late st Contact Info) Description 04/24/2024 Telephone Access Center, [place] 100 [address] [facility] *DO NOT REMOVE THIS DEPARTMENT* [place] [address] Services, Scheduling [address] [place] [address] Advice (Bari ) Allergies Active Allergy Reactions [...] suspected opioid overdose. Seek immediate medical attention. [email or web address]://[email or web address]?[email or web address] 1 Each 3 4 Active Simethicone 80 [...] Prochlorperazin e Maleate 10 MG Oral Tablet (Compazine)An Apaula cations:Maligna nt neoplasm of stomach (HCC) Take 1 Tablet by mouth every 6 hours as needed for Nausea. 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 She is agreeable to the lab work, orders placed. Scheduling- please schedule patient for lab appointment today at 1PM @ [facility] "CBCD,CMP" * Telephone Encounter - Shellie Willingham OSA [...] 5:03 PM EDT Please resend Rx to [facility] Confirmed pharmacy did not receive original [...] medication was ordered: 04/26/2024 Patient Phone Numbers [employer] [phone] Labs: Lab Results Component Value Date/Time CREAT [...] noted to be slightly elevated. Preferred pharmacy [place]. Reviewed with Dr Candelaria- patient should continue [...] Description 05/01/2024 12:45 PM EDT Imaging Radiology [facility] 1st [facility] [address] [place] [address] 05/03/2024 10:04 AM EDT Hospital Encounter OR [facility], Operating Room, [facility] - [address] [place] [address] [address] [place] [address] Boogie Rowe MD [address] [place] [address] 05/03/2024 10:04 AM EDT - 05/03/2024 11:00 AM EDT Surgery OR [facility], Operating Room, [facility] - [facility] Floor [address] [place] [address] Boogie Rowe MD [address] [place] [address] INSERT TUNNELED CENTRAL VENOUS ACCESS WITH SUBQ PORT 05/03/2024 2:00 PM EDT Office Visit Hematology/Oncology Zari Lopez [place] [address] [place] [address] Kenyon Candelaria MD [address] [place] [address] 05/03/2024 2:30 PM EDT Nurse Only Hematology/Oncology [facility] Jessica [place] [address] [place] [address] Jessica, Nurse Hem Onc Sc[address] [place] [address] Scheduled Orders Name Type Priority Associated Diagnoses Orde r Schedule CBC WITH WBC DIFFERENTIAL Lab STAT Malignant neoplasm of stomach (HCC) Expected: 04/27/2024, Expires: 04/27/2025 COMPREHENSIVE METABOLIC PANEL Lab STAT Malignant neoplasm of stomach (HCC) Expected: 04/27/2024, Expires: 04/27/2025 Scheduled Procedures Name Priority Associated Diagnoses Date/Ti [...] Discussed due to patient's condition Care Teams Pet Feeder Relationship Specialty Start Date End Date Jorge Luis Gil, TRANGC [address] [place] [address] PCP - General Physician Leverman 03/23/24 documented as of this encounter
--- OUTSIDE RECORDS SUMMARY | 2024-04-28 08:41 | External Medical Summary | Summary of Care ---
Author Name Unknown Organization [facility] Address [address] [place] [place] [address] Phone [phone] Care Team Providers Care Science Instructor Name Role Phone Jorge Luis Gil PA-C Primary Care Provider [phone] [phone] Reason for Visit * Reason Onset Date Comments Referral 04/27/2024 GHIS Encounter Details Date Type Department Care Team (Late st Contact Info) Description 04/27/2024 Telephone Hematology/Oncology Treatment, [place] [address] [place] [address] Howie Candelaria MD 200 [place] [address] Referral (IS) Allergies Active Allergy Reactions Criticality Noted Date [...] suspected opioid overdose. Seek immediate medical attention. [email or web address]?v=[email or web address] 1 Each 3 04/06/2024 Active Simethicone 80 [...] the morning. Pt unsure of milligrams. Active Prochlorperazine Maleate 10 MG Oral Tablet (Compazine)Indica tions:Malignant neoplasm of stomach (HCC) Take 1 Tablet by mouth every 6 hours as needed for Nausea. 30 Tablet 3 04/27/2024 Active oxyCODONE HCl 5 MG Oral Tablet (Oxy IR)Indications:Ma lignant neoplasm of stomach (HCC) Take 1 Tablet by mouth every 4 hours as needed for Pain, Moderate. 30 Tablet 04/27/2024 Active Ondansetron HCl 8 MG Oral Tablet (Zofran)Indicatio ns:Malignant neoplasm of stomach (HCC) Take 1 Tablet by mouth every 8 hours as needed for Nausea. 30 Tablet 3 04/27/2024 Active documented as of this encounter (statuses [...] only will have a drink on special [employer] Answer Date Recorded Do you have [...] Encounter - Maria Fernanda Antonio RN - 04/27/2024 10:58 AM EDT Name: Kamila Bñauelos Cancer Diagnosis: c16.9 Attending Oncologist: Dr Candelaria Medication Requested: 5FU Route of Infusion: IV Length of infusion: 46 hours Chemotherapy to be disconnected at clinic: yes, date: n/a If no, please list home health agency and start of care date: n/a documented in this encounter Plan of Treatment Upcoming Encounters Date Type Department Care Team (Latest Contact Info) Description 05/01/2024 12:45 PM EDT Imaging Radiology [facility] 1st [facility] [address] [place] [address] 05/03/2024 10:04 AM EDT Hospital Encounter OR [facility], Operating Room, [facility] - [address] [place] [address] [address] [place] [address] Boogie Rowe MD 400 [place] [address] 05/03/2024 10:04 AM EDT - 05/03/2024 11:00 AM EDT Surgery OR [facility], Operating Room, [facility] - 4th Floor [address] [place] [address] Boogie Rowe MD [address] [place] [address] INSERT TUNNELED CENTRAL VENOUS ACCESS WITH SUBQ PORT 05/03/2024 2:00 PM EDT Office [facility] [place] [address] [address] Howie Candelaria MD [address] [place] [address] 05/03/2024 2:30 PM EDT Nurse Only Hematology/Oncology [facility] Sania Lopez [address] [place] [phone] Jessica Nurse Hem Onc [place] [address] [place] [address] Scheduled Procedures Name Priority Associated Diagnoses Date/Ti [...] Discussed due to patient's condition Care Teams Science Instructor Relationship Specialty Start Date End Date Jorge Luis Gil, ALISA [address] [place] [address] [place] [address] PCP - General Physician Air Boatswain 03/23/24 documented as of this encounter
--- OUTSIDE RECORDS SUMMARY | 2024-04-28 08:41 | External Medical Summary | Summary of Care ---
Author Name Unknown Organization [facility] Address [address] [facility] [place] [address] Phone [phone] Care Team Providers Care Back Hand Name Role Phone Jorge Luis Gil PA-C Primary Care Provider [phone] [phone] Reason for Visit * Reason Onset Date Comments Advice 04/24/2024 Bari Encounter Details Date Type Department Care Team (Late st Contact Info) Description 04/24/2024 Telephone Access Center, [place] 100 [address] [facility] *DO NOT REMOVE THIS DEPARTMENT* [place] [address] Services, Scheduling [address] [place] [address] Advice (Bari ) Allergies Active Allergy Reactions [...] suspected opioid overdose. Seek immediate medical attention. https://[email or web address]/watch?v= [email or web address] 1 Each 3 4 Active Simethicone 80 [...] Telephone Encounter - Prema Antonio RN - 04/27/2024 1:42 PM EDT Received call from patient- when she went to get lab work, she vomited, then became shaky and lightheaded. Her brought her over to [facility]. Called [facility] and spoke to Evangelina, faxed labs from today and last office note. TT sent to Dr Candelaria to make him aware. * Telephone Encounter - Roberta Yo OSA - 04/27/2024 12:05 PM EDT Added * Addendum Note - Jai Brooks RN - 04/27/2024 11:38 AM EDTAddended by: AJI BROOKS on: 04/27/2024 11:38 AM Modules accepted: Orders * Telephone Encounter - Jai Brooks RN - 04/27/2024 11:36 AM EDT Called patient, she denies any black/bloody Bms. She is agreeable to the lab work, orders placed. Scheduling- please schedule patient for lab appointment today at 1PM @ [facility] "CBCD,CMP" * Telephone Encounter - Shellie Willingham [...] 5:03 PM EDT Please resend Rx to [facility]-[address] Confirmed pharmacy did not receive original [...] noted to be slightly elevated. Preferred pharmacy [facility]. Reviewed with Dr Candelaria- patient should continue [...] Imaging Radiology [facility] 1st Floor, [place] 132 [facility] [place] [address] 05/03/2024 10:04 AM EDT Hospital Encounter OR [facility], Operating Room, [facility] - 4th Floor [address] [place] [address] [address] Boogie Rowe MD [address] [place] [address] 05/03/2024 10:04 AM EDT - 05/03/2024 11:00 AM EDT Surgery OR [facility], Operating Room, [facility] - 4th Floor [address] [place] [address] Boogie Rowe MD [address] [place] [address] INSERT TUNNELED CENTRAL VENOUS ACCESS WITH SUBQ PORT 05/03/2024 2:00 PM EDT Office Visit Hematology/Oncology [facility] Jessica [place] [address] [place] [address] Kenyon Candelaria MD [address] [place] [address] 05/03/2024 2:30 PM EDT Nurse Only Hematology/Oncology [facility] [place] [address] [place] [phone] Jessica, Nurse Hem Onc [facility] [address] [place] [address] Scheduled Procedures Name Priority Associated Diagnoses Date/Ti [...] Vaccine (FLU shot) (Season Ended) 2024 GFR 04/27/2025 04/27/2024, 03/10, 04/05/2024, Additional history exists Diabetes Screening 04/27/2027 04/27/2024, 0 04/06/2024, 04/05/2024, Additional history exists GARDASIL-HPV IMMUNIZATION SERIES Aged [...] Not on filedocumented as of this encounter Results * (ABNORMAL) COMPREHENSIVE METABOLIC PANEL (04/27/2024 1:05 PM EDT) BUN 19 6 - 20 mg/dL 04/27/2024 1:36 PM EDT LABORATORY [place] Creatinine 1.0 0.5 - 1.0 mg/dL 04/27/2024 1:36 PM EDT LABORATORY [place] [facility] Estimated Glomerular Filtration Rate 62 >=60 mL/min 04/27/2024 1:36 PM EDT LABORATORY [place] [facility] Comment:eGFR is calculated b ased on the CKD-EPI 2020 equation Sodium 140 135 - 146 mmol/L 04/27/2024 1:36 PM EDT LABORATORY [place] [facility] Potassium 4.6 3.5 - 5.1 mmol/L 04/27/2024 1:36 PM EDT LABORATORY [place] [facility] Chloride 99 98 - 107 mmol/L 04/27/2024 1:36 PM EDT LABORATORY [place] [facility] CO2 23 22 - 32 mmol/L 04/27/2024 1:36 PM EDT LAB[facility]ATORY [place] [facility] Anion Gap 18(H) 7 - 15 mmol/L 04/27/2024 1:36 PM EDT LABORATORY [place] [facility] Glucose 102 70 - 120 mg/dL 04/27/2024 1:36 PM EDT LAB[facility]ATORY [place] [facility] Albumin 4.2 3.8 - 5.0 g/dL 04/27/2024 1:36 PM EDT LABORATORY [place] [facility] AST 22 10 - 35 U/L 04/27/2024 1:36 PM EDT LABORATORY [place] [facility] Alkaline Phosphatase 152(H) 35 - 130 U/L 04/27/2024 1:36 PM EDT LAB[facility]ATORY [place] [facility] Bilirubin, Total 1.3(H) <=1.2 mg/dL 04/27/2024 1:36 PM EDT LAB[facility]ORY [place] [facility] Calcium 10.2 8.4 - 10.2 mg/dL 04/27/2024 1:36 PM EDT LAB[facility]ORY [place] [facility] Protein 8.9(H) 6.0 - 8.3 g/dL 04/27/2024 1:36 PM EDT LABORATORY [place] [facility] ALT 24 10 - 35 U/L 04/27/2024 1:36 PM EDT LAB[facility]ATORY [place] [facility] Blood Venous blood specimen / Unknown Venipuncture / Unknown 04/27/2024 1:05 PM EDT 04/27/2024 1:05 PM EDT Kenyon Candelaria MD LAB BLOOD ORDERABLES LAB[facility]ATORY [place] [facility] [address] [facility] [place] [address] documented in this encounter Visit Diagnoses Diagnosis Malignant neoplasm [...] Discussed due to patient's condition Care Teams Back Hand Relationship Specialty Start Date End Date Jorge Luis Gil PA-C [address] [place] [address] PCP - General Physician Process Technician 03/23/24 documented as of this encounter
--- OUTSIDE RECORDS SUMMARY | 2024-04-28 08:41 | External Medical Summary | Summary of Care ---
Author Name Unknown Organization [facility] Address [address] [facility] [place] [address] Phone [phone] Care Team Providers Care Car Park Attendant Name Role Phone Jorge Luis Gil PA-C Primary Care Provider +1 -[phone] Reason for Visit * Reason Onset Date Comments Advice 04/24/2024 Bari Encounter Details Date Type Department Care Team (Late st Contact Info) Description 04/24/2024 Telephone Access Center, [place] 100 [address] [facility] *DO NOT REMOVE THIS DEPARTMENT* [place] [address] Services, Scheduling [address] [place] [address] Advice (Bari ) Allergies Active Allergy Reactions [...] suspected opioid overdose. Seek immediate medical attention. [email or web address]://[email or web address].com/watch?v= [email or web address] 1 Each 3 4 Active Simethicone 80 [...] for lab appointment today at 1PM @ [facility] "CBCD,CMP" * Telephone Encounter - Shellie [...] 5:03 PM EDT Please resend Rx to [facility]-[address] Confirmed pharmacy did not receive original [...] medication was ordered: 04/26/2024 Patient Phone Numbers [employer] [phone] Labs: Lab Results Component Value Date/Time CREAT [...] every 8 hours as needed forNausea.Authorizing Provider: CANDELARIA, KENYON A Prochlorperazine Maleate 10 MG Oral Tablet*30 Tab*3 [...] noted to be slightly elevated. Preferred pharmacy [place]. Reviewed with Dr Candelaria- patient should continue [...] Department Care Team (Latest Contact Info) Description 04/27/2024 1:10 PM EDT Laboratory Laboratory, [facility] [phone] [facility] 132 [facility] [place] [address] 05/01/2024 12:45 PM EDT Imaging Radiology [facility] 1st [facility] 132 [facility] [place] [address] 05/03/2024 10:04 AM EDT Hospital Encounter OR [facility], Operating Room, [facility] - 4th Floor [address] [place] [address] Boogie Rowe MD [address] [place] [address] 05/03/2024 10:04 AM EDT - 05/03/2024 11:00 AM EDT Surgery OR [facility], Operating Room, [facility] - 4th Floor [address] [place] [address] Boogie Rowe MD [address] [place] [address] INSERT TUNNELED CENTRAL VENOUS ACCESS WITH SUBQ PORT 05/03/2024 2:00 PM EDT Office Visit Hematology/Oncolog y [facility] Jessica [place] [address] [place] [address] Kenyon Candelaria MD [address] [place] [address] 05/03/2024 2:30 PM EDT Nurse Only Hematology/Oncolog y [facility] Jessica [place] [address] [place] [address] [place], Nurse Hem Onc Scenery [address] [place] [address] Scheduled Orders Name Type Priority Associated Diagnoses [...] Discussed due to patient's condition Care Teams Car Park Attendant Relationship Specialty Start Date End Date Jorge Luis Gil, ALISA [address] [place] [address] [place] [address] PCP - General Physician Manager Communication 03/23/24 documented as of this encounter
--- OUTSIDE RECORDS SUMMARY | 2024-04-28 08:41 | External Medical Summary | Summary of Care ---
Author Name Unknown Organization [facility] Address [address] [facility] [place] [address] Phone [phone] Care Team Providers Care [employer]on [employer] Can Supply Supervisor Name Role Phone Jorge Luis Gil PA-C Primary Care Provider [phone] Reason for Visit * Reason Comments Outpatient Testing Encounter Details Date Type Department Care Team (Late st Contact Info) Description 04/27/2024 1:10 PM EDT Laboratory Laboratory, [facility] [address] [place] [id number] [facility] [address] [place] [address] Malignant neoplasm of stomach (HCC) Allergies Active Allergy Reactions Criticality Noted Date [...] suspected opioid overdose. Seek immediate medical attention. [email or web address] 1 Each 3 04/06/2024 Active Simethicone 80 [...] Description 05/01/2024 12:45 PM EDT Imaging Radiology [facility] 1st [facility] [address] [place] [address] 05/03/2024 10:04 AM EDT Hospital Encounter OR [facility], Operating Room, [facility] - [address] [place] [address] [address] [address] Boogie Rowe MD [address] [place] [address] 05/03/2024 10:04 AM EDT - 05/03/2024 11:00 AM EDT Surgery OR [facility], Operating Room, [facility] Floor [address] [address] Boogie Rowe MD [address] [place] [address] INSERT TUNNELED CENTRAL VENOUS ACCESS WITH SUBQ PORT 05/03/2024 2:00 PM EDT Office Visit Hematology/Oncology [facility] Sania Lopez [address] [facility] [place] [phone] Howie Candelaria MD [address] [facility] [place] [address] 05/03/2024 2:30 PM EDT Nurse Only Hematology/Oncology [facility] Sania Lopez [address] [facility] [place] [phone] Jessica, Nurse Hem Onc [address] [place] [address] Pending Results Name Type Priority Associated Diagnoses Date /Time MAGNESIUM Lab STAT Malignant neoplasm of stomach (HCC) 04/27/2024 1:05 PM EDT HEPATITIS B SURFACE ANTIBODY Lab STAT Malignant neoplasm of stomach (HCC) 04/27/2024 1:05 PM EDT HEPATITIS B SURFACE ANTIGEN Lab STAT Malignant neoplasm of stomach (HCC) 04/27/2024 1:05 PM EDT HEPATITIS B CORE ANTIBODIES IGG AND IGM Lab STAT Malignant neoplasm of stomach (HCC) 04/27/2024 1:05 PM EDT COMPREHENSIVE METABOLIC PANEL Lab STAT Malignant neoplasm of stomach (HCC) 04/27/2024 1:05 PM EDT Scheduled Procedures Name Priority Associated Diagnoses Date/Ti [...] Procedure Name Priority Date/Time Associated Diagnosis Comments DIFFERENTIAL, AUTOMATED STAT 04/27/2024 1:05 PM EDT Malignant neoplasm of stomach (HCC) CBC STAT 04/27/2024 1:05 PM EDT Malignant neoplasm of stomach (HCC) CBC STAT 04/27/2024 1:05 PM EDT Malignant neoplasm of stomach (HCC) documented in this encounter Results * (ABNORMAL) DIFFERENTIAL, AUTOMATED (04/27/2024 1:05 PM EDT) WBC 11.41(H) 4.00 - 10.80 K/uL 04/27/2024 1:13 PM EDT [facility] [place] [facility]10 Neutrophils % 70.4 40.0 - 75.0 % 04/27/2024 1:13 PM EDT [facility] [place] [facility]10 Lymphocytes % 20.7 18.0 - 42.0 % 04/27/2024 1:13 PM EDT [facility] [place] [facility]10 Monocytes % 8.3 1.0 - 11.0 % 04/27/2024 1:13 PM EDT [facility] [place] [facility]10 Eosinophils % 0.4 0.0 - 6.0 % 04/27/2024 1:13 PM EDT [facility] [place] 57[facility]10 Basophils % 0.2 0.0 - 2.0 % 04/27/2024 1:13 PM EDT [facility] [place] [facility]10 Absolute Neutrophils 8.03(H) 1.80 - 7.70 K/uL 04/27/2024 1:13 PM EDT [facility] [place] [facility]10 Absolute Lymphocytes 2.36 1.00 - 4.80 K/ul 04/27/2024 1:13 PM EDT [facility] [place] [facility]10 Absolute Monocytes 0.95 0.00 - 1.10 K/uL 04/27/2024 1:13 PM EDT [facility] [place] [facility]10 Absolute Eosinophils 0.05 0.00 - 0.70 K/uL 04/27/2024 1:13 PM EDT [facility] [place] [facility]10 Absolute Basophils 0.02 0.00 - 0.20 K/uL 04/27/2024 1:13 PM EDT [facility] [place] [facility]10 Blood Venous blood specimen / Unknown Venipuncture / Unknown 04/27/2024 1:05 PM EDT 04/27/2024 1:05 PM EDT Howie Candelaria MD LAB BLOOD ORDERABLES [facility] [place] [facility]10 [address] [place] [address] * (ABNORMAL) CBC (04/27/2024 1:05 PM EDT) WBC 11.41(H) 4.00 - 10.80 K/uL 04/27/2024 1:13 PM EDT [facility] [place] [facility]10 RBC 4.33 3.85 - 5.15 M/uL 04/27/2024 1:13 PM EDT [facility] [place] [facility]10 HGB 12.9 12.0 - 15.3 g/dL 04/27/2024 1:13 PM EDT [facility] [place] [facility]10 HCT 39.8 36.0 - 45.2 % 04/27/2024 1:13 PM EDT [facility] [place] [facility]10 MCV 91.9 81.5 - 97.5 fL 04/27/2024 1:13 PM EDT [facility] [place] [facility]10 MCH 29.8 27.0 - 34.0 pg 04/27/2024 1:13 PM EDT [facility] MCHC 32.4 32.0 - 36.0 g/dL 04/27/2024 1:13 PM EDT [facility] [place] [facility]10 RDW 16.0 11.5 - 15.5 % 04/27/2024 1:13 PM EDT [facility] PLT 327 140 - 400 K/uL 04/27/2024 1:13 PM EDT [facility] [place] [facility]10 MPV 10.4 6.6 - 11.1 fL 04/27/2024 1:13 PM EDT [facility] [place] [facility]10 Blood Venous blood specimen / Unknown Venipuncture / Unknown 04/27/2024 1:05 PM EDT 04/27/2024 1:05 PM EDT Howie Candelaria MD LAB BLOOD ORDERABLES [facility] [place] [facility]10 [address] [facility] [place] [address] documented in this encounter Visit Diagnoses Diagnosis Malignant neoplasm of stomach (HCC) Malignant neoplasm of stomach, unspecified site Gastric adenocarcinoma (HCC) Malignant neoplasm of stomach, unspecified site documented in this encounter Advance Directives * Full Code (Latest Code Status on File) Date Activated Date Inactivated Comments 03/31/2024 9:41 AM 04/06/2024 6:29 PM Question Answer Comments Discussion of Advance Direct marta occurred with: Not Discussed due to patient's condition Care Teams Cart[employer] And Can Supply Supervisor Relationship Specialty Start Date End Date Jorge Luis Gil, PANikkiC [address] [place] [id number] PCP - General Physician Manager Marketing 03/23/24 documented as of this encounter
--- OUTSIDE RECORDS SUMMARY | 2024-04-28 08:41 | External Medical Summary | Summary of Care ---
Author Name Unknown Organization [facility] Address [address] [place] [place] [address] Phone [phone] Care Team Providers Care House Carpenter Helper Name Role Phone Jorge Luis Gil PA-C Primary Care Provider [phone] Reason for Visit * Reason Onset Date Comments Precert Future 04/27/2024 FOLFOX Encounter Details Date Type Department Care Team (Late st Contact Info) Description 04/27/2024 Telephone Hematology/Oncology Treatment, [facility] [address] [place] [address] Howie Candelaria MD 200 [place] [address] Precert Future (FOLFOX) Allergies Active Allergy Reactions Criticality Noted Date [...] suspected opioid overdose. Seek immediate medical attention. [email or web address] 1 Each 3 04/06/2024 Active Simethicone 80 [...] Notes * Telephone Encounter - Maria Fernanda Antonio, RN - 04/27/2024 10:42 AM EDT Order received for FOLFOX. [place] plan built. Waiting for auth. Patient is coming 05/03/[address] Candelaria and for nurse education- will also need to sign consent. Will need hep B labs. Referral TE sent to [facility]. Port placement scheduled 05/03/24. documented in this encounter Plan of Treatment Upcoming Encounters Date Type Department Care Team (Latest Contact Info) Description 05/01/2024 12:45 PM EDT Imaging Radiology [facility] 1st [facility] [address] [facility] [place] [address] 05/03/2024 10:04 AM EDT Hospital Encounter OR [facility], Operating Room, [address] [place] [address] Boogie Rowe MD [address] [place] [address] 05/03/2024 10:04 AM EDT - 05/03/2024 11:00 AM EDT Surgery OR [facility], Operating Room, [facility] Floor [address] [address] Boogie Rowe MD [address] [place] [address] INSERT TUNNELED CENTRAL VENOUS ACCESS WITH SUBQ PORT 05/03/2024 2:00 PM EDT Office Visit Hematology/Oncology [facility] [place] [address] [phone] Howie Candelaria MD [address] [address] 05/03/2024 2:30 PM EDT Nurse Only Hematology/Oncology [facility] [place] [address] [place] [phone] Jessica Nurse Hem Onc Scene [address] [facility] [place] [address] Scheduled Orders Name Type Priority Associated Diagnoses Orde r Schedule CBC WITH WBC DIFFERENTIAL Lab STAT Malignant neoplasm of stomach (HCC) Every 2 Weeks for 26 Occurrences starting 04/27/2024 until 04/27/2025 COMPREHENSIVE METABOLIC PANEL Lab STAT Malignant neoplasm of stomach (HCC) Every 2 Weeks for 26 Occurrences starting 04/27/2024 until 04/27/2025 MAGNESIUM Lab STAT Malignant neoplasm of stomach (HCC) Every 2 Weeks for 26 Occurrences starting 04/27/2024 until 04/27/2025 HEPATITIS B SURFACE ANTIBODY Lab STAT Malignant neoplasm of stomach (HCC) Expected: 04/27/2024 (Approximate), Expires: 04/27/2025 HEPATITIS B SURFACE ANTIGEN Lab STAT Malignant neoplasm of stomach (HCC) Expected: 04/27/2024 (Approximate), Expires: 04/27/2025 HEPATITIS B CORE ANTIBODIES IGG AND IGM Lab STAT Malignant neoplasm of stomach (HCC) Expected: 04/27/2024 (Approximate), Expires: 04/27/2025 Scheduled Procedures Name Priority Associated [...] Discussed due to patient's condition Care Teams House Carpenter Helper Relationship Specialty Start Date End Date Jorge Luis Gil, TRANGC [address] [place] [address] [place] [address] PCP - General Physician Olive Knocker 03/23/24 documented as of this encounter
--- OUTSIDE RECORDS SUMMARY | 2024-04-28 08:42 | External Medical Summary ---
Author Name Unknown Address Unknown Organization [id number]:LABORATORY [facility] - [address] [place] [address] Laboratory Report Ordering Provider Test Date Status IRIS PRESCOTT 04/27/2024 13:05:28 Final Observation Date Value Abnormality Reference (Units ) Status Hepatitis B virus core Ab [Presence] in Serum 04/27/2024 13:05:28 Negative Negative Final Performing Location LABORATORY C - [address] [place] [address]
--- OUTSIDE RECORDS SUMMARY | 2024-04-28 08:42 | External Medical Summary ---
Author Name Unknown Address Unknown Organization [id number]:LABORATORY [place] [facility] - [address] [place] [address] Laboratory Report Ordering Provider Test Date Status IRIS PRESCOTT 04/27/2024 13:05:28 Final Observation Date Value Abnormality Reference (Units ) Status BUN 04/27/2024 13:05:28 19 6-20 (mg/dL) Final Creatinine 04/27/2024 13:05:28 1.0 0.5-1.0 (mg/dL) Final Glomerular filtration rate/1.73 sq M.predicted [Volume Rate/Area] in Serum, Plasma or Blood by Creatinine-based formula (CKD-EPI) 04/27/2024 13:05:28 62 >=60 (mL/min) Final eGFR is calculated based on the CKD-EPI 2020 equation Sodium 04/27/2024 13:05:28 140 135-146 (m mol/L) Final Potassium 04/27/2024 13:05:28 4.6 3.5-5.1 (m mol/L) Final Cl 04/27/2024 13:05:28 99 98-107 (mm ol/L) Final CO2 04/27/2024 13:05:28 23 22-32 (mmo l/L) Final Anion gap 04/27/2024 13:05:28 18 Above high normal 7- 15 (mmol/L) Final Glucose 04/27/2024 13:05:28 102 70-120 (mg /dL) Final Albumin 04/27/2024 13:05:28 4.2 3.8-5.0 (g /dL) Final AST (Aspartate aminotransferase) 04/27/2024 13:05:28 22 10-35 (U/L) Fin al Alk Phos 04/27/2024 13:05:28 152 Above high normal 35 -130 (U/L) Final Bilirubin, Total 04/27/2024 13:05:28 1.3 Above high no rmal <=1.2 (mg/dL) Final Calcium 04/27/2024 13:05:28 10.2 8.4-10.2 ( mg/dL) Final Protein 04/27/2024 13:05:28 8.9 Above high normal 6. 0-8.3 (g/dL) Final ALT (Alanine aminotransferase) 04/27/2024 13:05:28 24 10-35 (U/L) Chad lyon Performing Location LABORATORY [place] 57-1 0 - [address] [place] [address]
--- OUTSIDE RECORDS SUMMARY | 2024-04-28 08:42 | External Medical Summary ---
Author Name Unknown Address Unknown Organization [id number]:LABORATORY [facility] - [address] [place] [address] Laboratory Report Ordering Provider Test Date Status IRIS PRESCOTT 04/27/2024 13:05:28 Final Observation Date Value Abnormality Reference (Units ) Status Hep B surface Ag 04/27/2024 13:05:28 Negative Neg ative Final Performing Location LAB[facility]ORY [facility] - [address] [place] [address]
--- OUTSIDE RECORDS SUMMARY | 2024-04-28 08:42 | External Medical Summary ---
Author Name Unknown Address Unknown Organization K01:LABORATORY [facility] - [address] [place] [address] Laboratory Report Ordering Provider Test Date Status IRIS PRESCOTT 04/27/2024 13:05:28 Final Observation Date Value Abnormality Reference (Units ) Status Magnesium 04/27/2024 13:05:28 2.3 1.5-2.6 (m g/dL) Final Performing Location LABORATORY [facility] - [address] [place] [address]
--- OUTSIDE RECORDS SUMMARY | 2024-04-28 08:42 | External Medical Summary ---
Author Name Unknown Address Unknown Organization K01:LABORATORY [place] [address] [address] [place] [address] Laboratory Report Ordering Provider Test Date Status IRIS PRESCOTT 04/27/2024 13:05:28 Final Observation Date Value Abnormality Reference (Units) Status Hepatitis B virus surface Ab [Units/volume] in Serum or Plasma by Immunoassay 04/27/2024 13:05:28 <3.5 (mIU/mL) Final Hepatitis B virus surface Ab [Presence] in Serum by Immunoassay 04/27/2024 13:05:28 Negative Final HEPATITIS B SURFACE ANTIBODY, INTERPRETATION 04/27/2024 13:05:28 NOT immune to Hepatitis B Virus Final POSITIVE: >=11.5 mIU/mL
INDETERMINATE: 8.5-<11.5 mIU/mL
NEGATIVE: <8.5 mIU/mL Performing Location LABORATORY [place] [address] [place] [address]
[2024-04-28] MEDS: MULTIVITAMIN TAB PO SCH (10:07)
[2024-04-28] MEDS: LOSARTAN POTASSIUM 50 MG TAB PO SCH (10:07)
[2024-04-28] MEDS: CHOLECALCIFEROL 25 MCG (1000 UNITS) TAB PO SCH (10:07)
[2024-04-28] MEDS: SERTRALINE HCL 50 MG TABLET PO SCH (10:08)
--- NOTE | 2024-04-28 10:55 | Electrocardiogram Report ---
Test Reason : Blood Pressure : / mmHG Vent. Rate : 080 BPM Atrial Rate : 080 BPM P-R Int : 184 ms QRS Dur : 080 ms QT Int : 410 ms P-R-T Axes : 037 -06 012 degrees QTc Int : 472 ms Normal sinus rhythm Low voltage QRS Poor R wave progression, consider anterior PR vs. lead placement vs. LVH Abnormal ECG When compared with ECG of 31-MAR-2024 05:35, Questionable change in initial forces of Anterior leads T wave amplitude has increased in Lateral leads Confirmed by Jordan Lewis ([id number]) on 04/28/2024 10:54:54 AM Referred By: REFERRED SELF Confirmed By:Jordan Lewis
--- NOTE | 2024-04-28 11:38 | XRay Report ---
KUB CLINICAL HISTORY: Generalized abdominal pain. FINDINGS: 2 AP, portable, supine abdominal radiographs are correlated with abdominal CT dated 04/27/20. There is a nonobstructed abdominal bowel gas pattern. Moderate fecal retention is seen throughout the colon. No evidence of intraperitoneal free air is identified on these supine images. There are n o abnormal abdominal calcifications. The skeletal structures are osteopenic and appear intact. IMPRESSION: No acute abnormality is identified. Electronically signed by: Jose A Joe M.D. 04/28/2024 11:36 AM
--- NOTE | 2024-04-28 16:30 | Hospitalist Progress Note ---
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 Following with Dr. Bari guzman onc with plans for port placement next week, initiation of chemo with modified FOLFOX6 chemotherapy in near future, Dr. Harper of Surg Onc at [facility] for anticipated surgery following chemo CT abd/pelvis with: Again seen irregular wall thickening of the distal stomach with surrounding inflammation. This likely corresponds to the known history of a gastric neoplasm. Again seen is evidence of contained perforation along the inferior aspect of the distal stomach. An outpouching of fluid/phlegmon at the site like represents abscess/developing fistula, and the fluid collection has decreased in size from 03/31/2024. ED provider discussed with talent acquisition sourcer gen surg Dr. De Leon at [facility] who said there is no indication for surgery at this time, no need to transfer (3) Cancer related pain: Plan: Has been getting bentyl 10 mg as needed Also on intravenous Dilaudid for additional pain control Will continue current pain regimen (4) HTN (hypertension): Plan: Continue losartan, Toprol DVT Ppx: SQ lovenox Code status: FULL PCP: Jeffery Keane Dispo: observation med tele Admission and Anticipated Discharge Date Admission Date: April 27, 2024 Subjective 04/28/2024 The patient was seen and examined in medical telemetry unit She complains to have ongoing nausea and abdominal discomfort/pain No vomiting since admission Has been tolerating clears only Has been passing gas but no bowel movement Review of Systems Review of Systems: All systems reviewed and are unremarkable except as noted below Physical Exam Physical Exam: Sitting at the edge of the bed with with ongoing nausea and abdominal discomfort Constitutional: + ill appearing and average body habitus Eyes: PERRL, conjunctivae normal, anicteric sclerae ENMT: external ear and nose normal, oropharynx normal Neck: trachea midline, no thyromegaly Respiratory: no respiratory distress Auscultation: lungs clear to auscultation bilaterally Cardiovascular: Rate/Rhythm: regular rate and regular rhythm; not tachycardic Heart Sounds: normal S1 and normal S2; no murmur Extremities: no edema Gastrointestinal (Abdomen): Inspection/Auscultation: + abdomen distended (Mildly distended) and normal bowel sounds Percussion/Palpation: + abdomen tender (Mildly tender in the epigastrium) and abdomen soft Musculoskeletal: No acute arthritis involving any of the joints Neurologic: normal touch/pain/proprioception and moves all extremities (Generally weak); no focal motor deficits Psychiatric: A+Ox3, euthymic affect Lymphatic: no cervical or axillary lymphadenopathy Results & Data Results & Data Vital Signs (Past 12 Hours) Vital Signs Temp Pulse Resp BP Pulse Ox O2 Del Method 04/28/24 11:37 36.9 C 86 18 128/83 96 Room Air 04/28/24 07:23 37.0 C 80 18 121/72 95 Room Air Laboratory Results Short CBC 04/28/24 Range/Units 06:49 WBC 5.76 (4.8-10.8) K/ul Hgb 9.7 L (12.0-16.0) g/dl Hct 31.1 L (37.0-47.0) % Plt Count 200 (130-400) K/uL BMP 04/28/24 06:49 Sodium 138 Potassium 3.7 Chloride 107 Carbon Dioxide 24 BUN 19 Creatinine 0.60 D Glucose 75 Calcium 8.4 L Liver Function 04/28/24 Range/Units 06:49 Total Bilirubin 0.8 D (0.2-1.0) mg/dl AST 17 (13-39) U/L ALT 15 (7-52) U/L Alkaline Phosphatase 91 (34-104) U/L Albumin 3.1 L (3.4-5.0) gm/dl Urine 04/27/24 Range/Units 20:18 Urine Color Yellow Urine Appearance Clear (Clear) Urine pH 7.0 (4.5-7.5) Ur Specific Latta > 1.045 H (1.000-1.030) Urine Protein 1+ H (Negative) Urine Glucose (UA) Negative (Negative) Medications Administered Current Inpatient Medications Acetaminophen (Acetaminophen 325 Mg Tab) 650 mg PO Q4H PRN PRN Reason: Pain or Fever Stop: 05/27/24 20:02 Dicyclomine HCl (Dicyclomine Hcl 10 Mg Cap) 10 mg PO Q8 PRN PRN Reason: abdominal spams Stop: 05/27/24 20:02 Last Admin: 04/28/24 10:17 Dose: 10 mg Enoxaparin Sodium (Enoxaparin Inj 40 Mg/0.4 Ml Syr) 40 mg SQ Q24H [facility] Stop: 05/27/24 20:02 Last Admin: 04/27/24 22:11 Dose: 40 mg Hydromorphone HCl (Hydromorphone Inj 0.5 Mg/0.5 Ml Syr) 0.5 mg IV Q6H PRN PRN Reason: Severe Pain (Scale 7, 8, 9,10) Stop: 05/11/24 20:02 Lactated Ringer's (Lr) 1,000 mls @ 80 mls/hr IV .[id number] [facility] Stop: 04/28/24 19:14 Last Admin: 04/28/24 05:26 Dose: 80 mls/hr Acetaminophen (Ofirmev) 1,000 mg in 100 mls @ 400 mls/hr IV Q8H [facility] Stop: 05/01/24 01:59 Last Infusion: 04/28/24 11:18 Dose: Infused Pantoprazole Sodium 40 mg/ (Syringe) 10 mls @ 5 mls/min IV BID [facility] Stop: 05/27/24 20:02 Last Admin: 04/28/24 10:08 Dose: 5 mls/min Famotidine (Pepcid 20mg Iv Push) 20 mg in 5 mls @ 2.5 mls/min IV Q12H PRN PRN Reason: dyspepsia Stop: 05/27/24 20:02 Losartan Potassium (Losartan Potassium 50 Mg Tab) 50 mg PO QAM [facility] Stop: 05/28/24 08:59 Last Admin: 04/28/24 10:07 Dose: 50 mg Metoprolol Succinate (Metoprolol Succ 25mg Ext Rel Tab) 25 mg PO HS [facility] Stop: 05/27/24 20:59 Last Admin: 04/27/24 22:12 Dose: 25 mg Multivitamins (Multivitamin Tab) 1 tab PO QAM [facility] Stop: 05/28/24 08:59 Last Admin: 04/28/24 10:07 Dose: 1 tab Ondansetron HCl (Ondansetron Inj 2 Mg/Ml 2 Ml Vial) 4 mg IV Q6H PRN PRN Reason: Nausea Stop: 05/27/24 20:02 Last Admin: 04/28/24 11:59 Dose: 4 mg Polyethylene Glycol (Polyethylene (Miralax) 17 Gm Pack) 17 gm PO DAILY PRN PRN Reason: Constipation Stop: 05/27/24 20:02 Sertraline HCl (Sertraline Hcl 50 Mg Tablet) 25 mg PO DAILY [facility] Stop: 05/28/24 08:59 Last Admin: 04/28/24 10:08 Dose: 25 mg Simethicone (Simethicone 80 Mg Chew) 80 mg PO Q6H PRN PRN Reason: Dyspepsia Stop: 05/27/24 20:02 Last Admin: 04/28/24 02:30 Dose: 80 mg Vitamin D (Cholecalciferol 25 Mcg (1000 Units) Tab) 25 mcg PO DAILY [facility] Stop: 05/28/24 08:59 Last Admin: 04/28/24 10:07 Dose: 25 mcg (1) Nausea & vomiting Vomiting type: unspecified Qualified Code(s): R11.2 - Nausea with vomiting, unspecified
[2024-04-29] MEDS: PROMETHAZINE HCL 12.5 MG in SODIUM CHLORIDE 0.9% 50 ML IV PRN (02:44)
[2024-04-29 07:27] LABS: Calcium 8.7 mg/dl (8.6-10.3); Creatinine Clr Calc Pharmacy 122.4 ml/min; Est GFR (African American) 117.8 ml/min; Est GFR (Non-African American) 101.6 ml/min; Magnesium 1.9 mg/dl (1.7-2.4); Phosphorus 3.8 mg/dl (2.5-4.9); Potassium 3.5 mmol/L (3.5-5.1)
[2024-04-29] MEDS: FAMOTIDINE 20MG IV PUSH 20 MG/5 ML SYR IV PRN (09:39)
[2024-04-29] MEDS: DICYCLOMINE HCL 10 MG CAP PO SCH (09:39)
--- NOTE | 2024-04-29 14:35 | Hospitalist Progress Note ---
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 KUB did not show any evidence of intestinal obstruction Has been getting antiemetics Continue gentle fluids, advance diet as tolerated, antiemetics, pain control, warehouse specialist as requested by patient, Boost BID Protonix IV BID, PRN Pepcid, PRN Simethicone, Bentyl as needed Has been tolerating clears Will advance to full liquid diet Has been tolerating full liquid diet and will advance as tolerated If she can tolerate regular diet at supper will be discharged home this evening (2) Gastric adenocarcinoma: Plan: This a 58yo F with PMH 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 Following with Dr. Bari guzman onc with plans for port placement next week, initiation of chemo with modified FOLFOX6 chemotherapy in near future, Dr. Harper of Surg Onc at [facility] for anticipated surgery following chemo CT abd/pelvis with: Again seen irregular wall thickening of the distal stomach with surrounding inflammation. This likely corresponds to the known history of a gastric neoplasm. Again seen is evidence of contained perforation along the inferior aspect of the distal stomach. An outpouching of fluid/phlegmon at the site like represents abscess/developing fistula, and the fluid collection has decreased in size from 03/31/2024. ED provider discussed with production service manager gen surg Dr. De Leon at [facility] who said there is no indication for surgery at this time, no need to transfer (3) Cancer related pain: Plan: Has been getting bentyl 10 mg as needed Also on intravenous Dilaudid for additional pain control Will continue current pain regimen Her Bentyl has been increased to 20 mg 3 times daily Seems to be making progress with abdominal discomfort with Bentyl (4) HTN (hypertension): Plan: Continue losartan, Toprol DVT Ppx: SQ lovenox Code status: FULL PCP: Jeffery Keane Dispo: observation med tele Admission and Anticipated Discharge Date Admission Date: April 27, 2024 Subjective 04/28/2024 The patient was seen and examined in medical telemetry unit She complains to have ongoing nausea and abdominal discomfort/pain No vomiting since admission Has been tolerating clears only Has been passing gas but no bowel movement 04/29/2024 The patient was seen and examined in medical telemetry unit She has been complaining of abdominal discomfort and nausea Has been tolerating full liquid No vomiting and bowel has not moved Review of Systems Review of Systems: All systems reviewed and are unremarkable except as noted below Physical Exam Physical Exam: Sitting at the edge of the bed with with ongoing nausea and abdominal discomfort Constitutional: + ill appearing and average body habitus Eyes: PERRL, conjunctivae normal, anicteric sclerae ENMT: external ear and nose normal, oropharynx normal Neck: trachea midline, no thyromegaly Respiratory: no respiratory distress Auscultation: lungs clear to auscultation bilaterally Cardiovascular: Rate/Rhythm: regular rate and regular rhythm; not tachycardic Heart Sounds: normal S1 and normal S2; no murmur Extremities: no edema Gastrointestinal (Abdomen): Inspection/Auscultation: + abdomen distended (Mildly distended) and normal bowel sounds Percussion/Palpation: + abdomen tender (Mildly tender in the epigastrium) and abdomen soft Musculoskeletal: No acute arthritis involving any of the joints Neurologic: normal touch/pain/proprioception and moves all extremities (Ge nerally weak); no focal motor deficits Psychiatric: A+Ox3, euthymic affect Lymphatic: no cervical or axillary lymphadenopathy Results & Data Results & Data Vital Signs (Past 12 Hours) Vital Signs Temp Pulse Pulse Resp BP Pulse Ox O2 Del Method 04/29/24 11:41 36.9 C 76 18 121/88 97 Room Air 04/29/24 07:11 75 04/29/24 03:09 36.7 C 78 16 135/83 95 Room Air Laboratory Results [facility] 04/29/24 06:32 Sodium 139 Potassium 3.5 Chloride 105 Carbon Dioxide 25 BUN 11 Creatinine 0.58 L Glucose 87 Calcium 8.7 Medications Administered Current Inpatient Medications Acetaminophen (Acetaminophen 500 Mg Tab) 1,000 mg PO Q8H PRN PRN Reason: Pain Stop: 05/29/24 10:46 Dicyclomine HCl (Dicyclomine Hcl 10 Mg Cap) 20 mg PO Q8 MICHAELLE Stop: 05/29/24 09:29 Last Admin: 04/29/24 12:56 Dose: 20 mg Enoxaparin Sodium (Enoxaparin Inj 40 Mg/0.4 Ml Syr) 40 mg SQ Q24H MICHAELLE Stop: 05/27/24 20:02 Last Admin: 04/28/24 20:39 Dose: 40 mg Hydromorphone HCl (Hydromorphone Inj 0.5 Mg/0.5 Ml Syr) 0.5 mg IV Q6H PRN PRN Reason: Severe Pain (Scale 7, 8, 9,10) Stop: 05/11/24 20:02 Pantoprazole Sodium 40 mg/ (Syringe) 10 mls @ 5 mls/min IV BID [facility] Stop: 05/27/24 20:02 Last Admin: 04/29/24 07:53 Dose: 5 mls/min Famotidine (Pepcid 20mg Iv Push) 20 mg in 5 mls @ 2.5 mls/min IV Q12H PRN PRN Reason: dyspepsia Stop: 05/27/24 20:02 Last Admin: 04/29/24 09:39 Dose: 2.5 mls/min Promethazine HCl 12.5 mg/ (Sodium Chloride) 50.5 mls @ 202 mls/hr IV Q6H PRN PRN Reason: Nausea And Vomiting Stop: 05/29/24 02:09 Last Infusion: 04/29/24 03:49 Dose: Infused Losartan Potassium (Losartan Potassium 50 Mg Tab) 50 mg PO QAM [facility] Stop: 05/28/24 08:59 Last Admin: 04/29/24 07:55 Dose: 50 mg Metoprolol Succinate (Metoprolol Succ 25mg Ext Rel Tab) 25 mg PO HS [facility] Stop: 05/27/24 20:59 Last Admin: 04/28/24 20:38 Dose: 25 mg Multivitamins (Multivitamin Tab) 1 tab PO QAM [facility] Stop: 05/28/24 08:59 Last Admin: 04/29/24 07:56 Dose: 1 tab Ondansetron HCl (Ondansetron Inj 2 Mg/Ml 2 Ml Vial) 4 mg IV Q6H PRN PRN Reason: Nausea Stop: 05/27/24 20:02 Last Admin: 04/28/24 21:22 Dose: 4 mg Polyethylene Glycol (Polyethylene (Miralax) 17 Gm Pack) 17 gm PO DAILY PRN PRN Reason: Constipation Stop: 05/27/24 20:02 Sertraline HCl (Sertraline Hcl 50 Mg Tablet) 25 mg PO DAILY [facility] Stop: 05/28/24 08:59 Last Admin: 04/29/24 07:54 Dose: 25 mg Simethicone (Simethicone 80 Mg Chew) 80 mg PO Q6H PRN PRN Reason: Dyspepsia Stop: 05/27/24 20:02 Last Admin: 04/29/24 07:10 Dose: 80 mg Vitamin D (Cholecalciferol 25 Mcg (1000 Units) Tab) 25 mcg PO DAILY MICHAELLE Stop: 05/28/24 08:59 Last Admin: 04/29/24 07:54 Dose: 25 mcg (1) Nausea & vomiting Vomiting type: unspecified Qualified Code(s): R11.2 - Nausea with vomiting, unspecified
[2024-04-29] MEDS: ACETAMINOPHEN 500 MG TAB PO PRN (15:29)
[2024-04-29] MEDS: D5NSS + 20MEQ KCL 20 MEQ/1,000 ML BAG IV SCH (18:09)
[2024-04-29] MEDS: ALUMINUM/MAGNESIUM/SIMETH (MAALOX MAX) 30 ML UDC PO STA (23:17)
[2024-04-30] MEDS: SUCRALFATE 1 GM/10 ML UDC PO SCH (10:26)
--- NOTE | 2024-04-30 14:57 | Hospitalist Progress Note ---
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 KUB did not show any evidence of intestinal obstruction Has been getting antiemetics Continue gentle fluids, advance diet as tolerated, antiemetics, pain control, activities therapist as requested by patient, Boost BID Protonix IV BID, PRN Pepcid, PRN Simethicone, Bentyl as needed Has been tolerating clears Will advance to full liquid diet Has been tolerating full liquid diet and will advance as tolerated If she can tolerate regular diet at supper will be discharged home this evening Has not been able to tolerate any solid food due to ongoing nausea and abdominal fullness Mylanta as needed has been helping and will continue Sucralfate was added She has been getting small amount of intravenous fluid to avoid dehydration (2) Gastric adenocarcinoma: Plan: This a 58yo F with PMH 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 Following with Dr. Candelaria heme onc with plans for port placement next week, initiation of chemo with modified FOLFOX6 chemotherapy in near future, Dr. Harper of Surg Onc at [facility] for anticipated surgery following chemo CT abd/pelvis with: Again seen irregular wall thickening of the distal stomach with surrounding inflammation. This likely corresponds to the known history of a gastric neoplasm. Again seen is evidence of contained perforation along the inferior aspect of the distal stomach. An outpouching of fluid/phlegmon at the site like represents abscess/developing fistula, and the fluid collection has decreased in size from 03/31/2024. ED provider discussed with provider relations rep gen surg Dr. De Leon at [facility] who said there is no indication for surgery at this time, no need to transfer Denies any significant pain Has been getting Bentyl 20 mg 3 times daily (3) Cancer related pain: Plan: Has been getting bentyl 10 mg as needed Also on intravenous Dilaudid for additional pain control Will continue current pain regimen Her Bentyl has been increased to 20 mg 3 times daily Seems to be making progress with abdominal discomfort with Bentyl Has not been taking any narcotic pain medications (4) HTN (hypertension): Plan: Continue losartan, Toprol DVT Ppx: SQ lovenox Code status: FULL PCP: Jeffery Keane Dispo: observation med tele Admission and Anticipated Discharge Date Admission Date: April 27, 2024 Subjective 04/28/2024 The patient was seen and examined in medical telemetry unit She complains to have ongoing nausea and abdominal discomfort/pain No vomiting since admission Has been tolerating clears only Has been passing gas but no bowel movement 04/29/2024 The patient was seen and examined in medical telemetry unit She has been complaining of abdominal discomfort and nausea Has been tolerating full liquid No vomiting and bowel has not moved 04/30/2024 The patient was seen and examined in medical telemetry unit She has been feeling a little better but is still has significant nausea and intolerance to advance diet Sucralfate was added and she has been getting Mylanta as needed for reflux disease Advised to ambulate Review of Systems Review of Systems: All systems reviewed and are unremarkable except as noted below Physical Exam Physical Exam: Sitting at the edge of the bed with with ongoing nausea and abdominal discomfort Constitutional: + ill appearing and average body habitus Eyes: PERRL, conjunctivae normal, anicteric sclerae ENMT: external ear and nose normal, oropharynx normal Neck: trachea midline, no thyromegaly Respiratory: no respiratory distress Auscultation: lungs clear to auscultation bilaterally Cardiovascular: Rate/Rhythm: regular rate and regular rhythm; not tachycardic Heart Sounds: normal S1 and normal S2; no murmur Extremities: no edema Gastrointestinal (Abdomen): Inspection/Auscultation: + abdomen distended (Mildly distended) and normal bowel sounds Percussion/Palpation: + abdomen tender (Mildly tender in the epigastrium) and abdomen soft Neurologic: normal touch/pain/proprioception and moves all extremities (Generally weak); no focal motor deficits Psychiatric: A+Ox3, euthymic affect Lymphatic: no cervical or axillary lymphadenopathy Results & Data Results & Data Vital Signs (Past 12 Hours) Vital Signs Temp Pulse Pulse Resp BP Pulse Ox O2 Del Method 04/30/24 14:05 76 04/30/24 11:37 36.7 C 74 16 127/84 97 Room Air 04/30/24 07:41 36.9 C 101 H 16 133/83 94 Room Air 04/30/24 07:18 76 04/30/24 03:09 37.0 C 83 16 126/75 96 Room Air Medications Administered Current Inpatient Medications Acetaminophen (Acetaminophen 500 Mg Tab) 1,000 mg PO Q8H PRN PRN Reason: Pain Stop: 05/29/24 10:46 Last Admin: 04/30/24 12:54 Dose: 1,000 mg Dicyclomine HCl (Dicyclomine Hcl 10 Mg Cap) 20 mg PO Q8 MICHAELLE Stop: 05/29/24 09:29 Last Admin: 04/30/24 12:54 Dose: Not Given Enoxaparin Sodium (Enoxaparin Inj 40 Mg/0.4 Ml Syr) 40 mg SQ Q24H [facility] Stop: 05/27/24 20:02 Last Admin: 04/29/24 21:31 Dose: 40 mg Hydromorphone HCl (Hydromorphone Inj 0.5 Mg/0.5 Ml Syr) 0.5 mg IV Q6H PRN PRN Reason: Severe Pain (Scale 7, 8, 9,10) Stop: 05/11/24 20:02 Pantoprazole Sodium 40 mg/ (Syringe) 10 mls @ 5 mls/min IV BID [facility] Stop: 05/27/24 20:02 Last Admin: 04/30/24 07:45 Dose: 5 mls/min Famotidine (Pepcid 20mg Iv Push) 20 mg in 5 mls @ 2.5 mls/min IV Q12H PRN PRN Reason: dyspepsia Stop: 05/27/24 20:02 Last Admin: 04/30/24 10:50 Dose: 2.5 mls/min Promethazine HCl 12.5 mg/ (Sodium Chloride) 50.5 mls @ 202 mls/hr IV Q6H PRN PRN Reason: Nausea And Vomiting Stop: 05/29/24 02:09 Last Infusion: 04/29/24 03:49 Dose: Infused Potassium Chloride/Dextrose/Sod Cl (D5nss + 20meq Kcl) 20 meq in 1,000 mls @ 100 mls/hr IV .Q10H [facility]; Protocol Stop: 04/30/24 23:29 Last Admin: 04/30/24 14:11 Dose: 100 mls/hr Losartan Potassium (Losartan Potassium 50 Mg Tab) 50 mg PO QAM [facility] Stop: 05/28/24 08:59 Last Admin: 04/30/24 07:45 Dose: 50 mg Metoprolol Succinate (Metoprolol Succ 25mg Ext Rel Tab) 25 mg PO HS [facility] Stop: 05/27/24 20:59 Last Admin: 04/29/24 21:31 Dose: 25 mg Multivitamins (Multivitamin Tab) 1 tab PO QAM [facility] Stop: 05/28/24 08:59 Last Admin: 04/30/24 07:46 Dose: 1 tab Ondansetron HCl (Ondansetron Inj 2 Mg/Ml 2 Ml Vial) 4 mg IV Q6H PRN PRN Reason: Nausea Stop: 05/27/24 20:02 Last Admin: 04/28/24 21:22 Dose: 4 mg Polyethylene Glycol (Polyethylene (Miralax) 17 Gm Pack) 17 gm PO DAILY PRN PRN Reason: Constipation Stop: 05/27/24 20:02 Sertraline HCl (Sertraline Hcl 50 Mg Tablet) 25 mg PO DAILY [facility] Stop: 05/28/24 08:59 Last Admin: 04/30/24 07:46 Dose: 25 mg Simethicone (Simethicone 80 Mg Chew) 80 mg PO Q6H PRN PRN Reason: Dyspepsia Stop: 05/27/24 20:02 Last Admin: 04/29/24 21:59 Dose: 80 mg Sucralfate (Sucralfate 1 Gm/10 Ml Udc) 1 gm PO ACHS [facility] Stop: 05/30/24 08:59 Last Admin: 04/30/24 10:49 Dose: 1 gm Vitamin D (Cholecalciferol 25 Mcg (1000 Units) Tab) 25 mcg PO DAILY [facility] Stop: 05/28/24 08:59 Last Admin: 04/30/24 07:46 Dose: 25 mcg (1) Nausea & vomiting Vomiting type: unspecified Qualified Code(s): R11.2 - Nausea with vomiting, unspecified
[2024-04-30] MEDS: MELATONIN 3 MG TAB PO PRN (23:20)
[2024-05-01 06:37] LABS: Basophils # (auto) 0.04 K/uL (0.00-0.20); Hematocrit (blood only) 32.3 % (37.0-47.0); Hemoglobin 10.2 g/dl (12.0-16.0); Immature Granulocytes # (auto) 0.01 K/uL (0.01-0.20); Immature Granulocytes % (auto) 0.3 %; Lymphocytes # (auto) 1.59 K/uL (1.20-3.40); Lymphocytes % (auto) 39.8 %; Mean Corpuscular Hemoglobin 28.8 pg (25.0-34.0); Mean Corpuscular Hgb Conc 31.6 g/dL (32.0-36.0); Mean Corpuscular Volume 91.2 fL (80.0-100.0); Mean Platelet Volume 10.9 fL (9.4-12.4); Monocytes # (auto) 0.38 K/uL (0.11-0.59); Monocytes % (auto) 9.5 %; Neutrophils # (auto) 1.78 K/uL (1.40-6.50); Neutrophils % (auto) 44.4 %; Platelet Count 207 K/uL (130-400); RDW Coefficient of Variation 14.8 % (11.5-14.5); Red Blood Count 3.54 M/uL (4.20-5.40)
[2024-05-01 07:23] LABS: BUN Creatinine Ratio 9.1 (10-20); Calcium 8.5 mg/dl (8.6-10.3); Creatinine Clr Calc Pharmacy 129.7 ml/min; Est GFR (African American) 119.8 ml/min; Est GFR (Non-African American) 103.4 ml/min; Magnesium 1.9 mg/dl (1.7-2.4); Phosphorus 2.8 mg/dl (2.5-4.9); Potassium 3.5 mmol/L (3.5-5.1)
--- NOTE | 2024-05-01 13:14 | Hospitalist Progress Note ---
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 KUB did not show any evidence of intestinal obstruction Has been getting antiemetics Continue gentle fluids, advance diet as tolerated, antiemetics, pain control, bacteriologist fishery as requested by patient, Boost BID Protonix IV BID, PRN Pepcid, PRN Simethicone, Bentyl as needed Has been tolerating clears Will advance to full liquid diet Has been tolerating full liquid diet and will advance as tolerated If she can tolerate regular diet at supper will be discharged home this evening Has not been able to tolerate any solid food due to ongoing nausea and abdominal fullness Mylanta as needed has been helping and will continue Sucralfate was added She has been getting small amount of intravenous fluid to avoid dehydration Much controlled today and has been tolerating liquid diet (2) Gastric adenocarcinoma: Plan: This a 58yo F with PMH 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 Following with Dr. Candelaria heme onc with plans for port placement next week, initiation of chemo with modified FOLFOX6 chemotherapy in near future, Dr. Harper of Surg Onc at [facility] [place] for anticipated surgery following chemo CT abd/pelvis with: Again seen irregular wall thickening of the distal stomach with surrounding inflammation. This likely corresponds to the known history of a gastric neoplasm. Again seen is evidence of contained perforation along the inferior aspect of the distal stomach. An outpouching of fluid/phlegmon at the site like represents abscess/develo ping fistula, and the fluid collection has decreased in size from 03/31/2024. ED provider discussed with certified low vision therapist gen surg Dr. De Leon at [facility] who said there is no indication for surgery at this time, no need to transfer Denies any significant pain Has been getting Bentyl 20 mg 3 times daily Advised to keep appointment with the oncologist on the surgeon (3) Cancer related pain: Plan: Has been getting bentyl 10 mg as needed Also on intravenous Dilaudid for additional pain control Will continue current pain regimen Her Bentyl has been increased to 20 mg 3 times daily Seems to be making progress with abdominal discomfort with Bentyl Has not been taking any narcotic pain medications (4) HTN (hypertension): Plan: Continue losartan, Toprol DVT Ppx: SQ lovenox Code status: FULL PCP: Jeffery Keane Dispo: observation med tele Admission and Anticipated Discharge Date Admission Date: April 27, 2024 Subjective 04/28/2024 The patient was seen and examined in medical telemetry unit She complains to have ongoing nausea and abdominal discomfort/pain No vomiting since admission Has been tolerating clears only Has been passing gas but no bowel movement 04/29/2024 The patient was seen and examined in medical telemetry unit She has been complaining of abdominal discomfort and nausea Has been tolerating full liquid No vomiting and bowel has not moved 04/30/2024 The patient was seen and examined in medical telemetry unit She has been feeling a little better but is still has significant nausea and intolerance to advance diet Sucralfate was added and she has been getting Mylanta as needed for reflux disease Advised to ambulate 05/01/2024 The patient was seen and examined in medical telemetry unit She has been feeling much better Less nausea no vomiting Tolerating liquid diet Will be discharged home this afternoon Review of Systems Review of Systems: All systems reviewed and are unremarkable except as noted below Physical Exam Physical Exam: Sitting at the edge of the bed with with ongoing nausea and abdominal discomfort Constitutional: + ill appearing and average body habitus Eyes: PERRL, conjunctivae normal, anicteric sclerae ENMT: external ear and nose normal, oropharynx normal Neck: trachea midline, no thyromegaly Respiratory: no respiratory distress Auscultation: lungs clear to auscultation bilaterally Cardiovascular: Rate/Rhythm: regular rate and regular rhythm; not tachycardic Heart Sounds: normal S1 and normal S2; no murmur Extremities: no edema Gastrointestinal (Abdomen): Inspection/Auscultation: + abdomen distended (Mildly distended) and normal bowel sounds Percussion/Palpation: + abdomen tender (Mildly tender in the epigastrium) and abdomen soft Neurologic: normal touch/pain/proprioception and moves all extremities (Generally weak); no focal motor deficits Psychiatric: A+Ox3, euthymic affect Lymphatic: no cervical or axillary lymphadenopathy Results & Data Results & Data Vital Signs (Past 12 Hours) Vital Signs Temp Pulse Resp BP Pulse Ox O2 Del Method 05/01/24 11:46 36.6 C 72 18 129/82 97 Room Air 05/01/24 07:50 36.8 C 72 18 125/81 98 Room Air 05/01/24 03:17 36.9 C 76 16 124/78 95 Room Air Laboratory Results Short CBC 05/01/24 Range/Units 05:41 WBC 4.00 L (4.8-10.8) K/ul Hgb 10.2 L (12.0-16.0) g/dl Hct 32.3 L (37.0-47.0) % Plt Count 207 (130-400) K/uL BMP 05/01/24 05:41 Sodium 141 Potassium 3.5 Chloride 109 H Carbon Dioxide 26 BUN 5 L Creatinine 0.55 L Glucose 90 Calcium 8.5 L (1) Nausea & vomiting Vomiting type: unspecified Qualified Code(s): R11.2 - Nausea with vomiting, unspecified
--- NOTE | 2024-05-02 07:26 | Discharge Summary ---
Date of Service May 02, 2024 Admission HPI Per Admitting Provider This a 58yo F with PMH 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 Pain is non-radiation. Took tylenol and 1 hydrocodone but then began to vomit. Had nausea and vomiting last evening and has not been able to keep anything down since then. Took Zofran PRN that improved nausea intermittently. [place] near syncopal and dehydrated. Follows with Dr. Candelaria for heme onc with plans for port placement this coming Wednesday. Also following with Dr. Harper of surg on at [facility] [place] for gastric adenocarcinoma and are anticipating surgery after chemo. Decreased appetite.+ belching. No F/C, CP, SOB, dysuria, diarrhea or constipation. Had a soft bowel movement yesterday. Admission Exam Per Admitting Provider Vitals signs as noted above General Appearance:Moderately built and nourished, no apparent distress Head: normocephalic, Atraumatic Eyes: normal inspection, EOMI Neck: supple, Trachea midline Respiratory/Chest: Normal breath sounds, CTA, No accessory muscle use Cardiovascular: S1, S2, No murmur Abdomen/GI:Soft, Epigastric tender, Bowel sounds present, guarding or rigidity Extremities/Musculoskeletal:normal inspection, no edema Neurologic/Psych:AAOX3, grossly no focal neurological deficits Skin: normal color, warm Principal Diagnosis Nausea and vomiting, epigastric pain and discomfort, gastric cancer Discharge Exam Sitting at the edge of the bed with with ongoing nausea and abdominal discomfort Constitutional + ill appearing and average body habitus Eyes PERRL, conjunctivae normal, anicteric sclerae ENMT external ear and nose normal, oropharynx normal Neck trachea midline, no thyromegaly Respiratory no respiratory distress Auscultation: lungs clear to auscultation bilaterally Cardiovascular Rate/Rhythm: regular rate and regular rhythm; not tachycardic Heart Sounds: normal S1 and normal S2; no murmur Extremities: no edema Gastrointestinal (Abdomen) Inspection/Auscultation: + abdomen distended (Mildly distended) and normal bowel sounds Percussion/Palpation: + abdomen tender (Mildly tender in the epigastrium) and abdomen soft Neurologic normal touch/pain/proprioception and moves all extremities (Generally weak); no focal motor deficits Psychiatric A+Ox3, euthymic affect Lymphatic no cervical or axillary lymphadenopathy Discharge Data Allergies Allergy/AdvReac Type Severity Reaction Status Date / Time Sulfa (Sulfonamide Allergy Unknown Unknown Verified 04/27/24 16:59 Antibiotics) Consultations 04/27/24 17:09 ED Decision to Admit Stat Ordered Studies 04/27/24 13:53 CT Abd and Pelvis [CT abd pelvis IV con only] Stat Hospital Course (1) Nausea & vomiting: Secondary to 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 KUB did not show any evidence of intestinal obstruction Has been getting antiemetics Continue gentle fluids, advance diet as tolerated, antiemetics, pain control, hair or beauty salon assistant as requested by patient, Boost BID Protonix IV BID, PRN Pepcid, PRN Simethicone, Bentyl as needed Has been tolerating clears Will advance to full liquid diet Has been tolerating full liquid diet and will advance as tolerated If she can tolerate regular diet at supper will be discharged home this evening Has not been able to tolerate any solid food due to ongoing nausea and abdominal fullness Mylanta as needed has been helping and will continue Sucralfate was added She has been getting small amount of intravenous fluid to avoid dehydration Much controlled today and has been tolerating liquid diet (2) Gastric adenocarcinoma: This a 58yo F with PMH 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 Following with Dr. Bari guzman onc with plans for port placement next week, init iation of chemo with modified [id number] chemotherapy in near future, Dr. Harper of Surg Onc at [facility] [place] for anticipated surgery following chemo CT abd/pelvis with: Again seen irregular wall thickening of the distal stomach with surrounding inflammation. This likely corresponds to the known history of a gastric neoplasm. Again seen is evidence of contained perforation along the inferior aspect of the distal stomach. An outpouching of fluid/phlegmon at the site like represents abscess/developing fistula, and the fluid collection has decreased in size from 03/31/2024. ED provider discussed with manager registration gen surg Dr. De Leon at [facility] who said there is no indication for surgery at this time, no need to transfer Denies any significant pain Has been getting Bentyl 20 mg 3 times daily Advised to keep appointment with the oncologist on the surgeon (3) Cancer related pain: Has been getting bentyl 10 mg as needed Also on intravenous Dilaudid for additional pain control Will continue current pain regimen Her Bentyl has been increased to 20 mg 3 times daily Seems to be making progress with abdominal discomfort with Bentyl Has not been taking any narcotic pain medications (4) HTN (hypertension): Continue losartan, Toprol DVT Ppx: SQ lovenox Code status: FULL PCP: Jeffery Keane Dispo: observation med tele Total Time Total Time Spent Total Time Spent (In Minutes): 35 minutes Discharge Plan Discharge Items Patient Disposition: Home - Self-Care Reason For Visit: NAUSEA, EPIGASTRIC PAIN Discharge Diagnosis: Nausea and vomiting, epigastric pain and discomfort, gastric cancer Condition on Discharge: Fair Activity: Resume your previous activity Non-emergency contact: Primary Care Provider Call non-emergency contact if: you have any medication questions and your symptoms worsen Follow-up/Referrals: Jorge Luis Gil [Primary Care Provider] - Diet Texture: Easy to Chew Diet Comment: As tolerated Addtl Attending Provider Instructions: Please take precautions to avoid falls Take your medications as advised Please keep appointments with your oncologist and general surgery I sent the prescription of Prosource in the pharmacy-if not covered you can buy it [id number] Pending Studies at Discharge: No Stand-Alone Forms: My [employer], Smoking Cessation Medications and DC Order Prescriptions: New ondansetron 4 mg tablet,disintegrating 4 mg PO Q6H PRN (Reason: nausea and vomiting) Qty: 20 0RF protein [ProSource] Powder 1 ea PO BID Qty: 454 0RF Rx Instructions: As advised by the hair or beauty salon assistant Continued pantoprazole 40 mg tablet,delayed release (DR/EC) 40 mg PO BID Qty: 60 1RF losartan 50 mg tablet 50 mg PO QAM metoprolol succinate 25 mg tablet extended release 24 hr 25 mg PO HS multivitamin Tablet 1 tab PO QAM prochlorperazine maleate 10 mg Tablet 10 mg PO Q6H PRN (Reason: Nausea And Vomiting) hydrocodone-acetaminophen 7.5-325 mg tablet 1 tab PO Q4H PRN (Reason: Severe Pain (Scale Score 7-10)) sertraline 25 mg tablet 25 mg PO DAILY simethicone 80 mg Tablet,Chewable 80 mg PO Q6H PRN (Reason: Dyspepsia) oxycodone 5 mg Tablet 5 mg PO Q4H PRN (Reason: Moderate Pain (Scale Score 5-6)) cholecalciferol (vitamin D3) [Vitamin D3] 25 mcg (1,000 unit) Tablet 1,000 unit PO DAILY Discontinued ondansetron HCl 4 mg tablet 4 mg PO Q6H PRN (Reason: nausea and vomiting) Qty: 14 1RF Discharge Orders: Discharge Order (Routine); Ordered 05/01/24 Ordered By: Yanna Alvarez Admission Data Admit Date/Time: 04/27/24 18:12 Attending Provider: Yanna Alvarez Admit Provider: Frederick Nieves Primary Care Provider: Jorge Luis Gil Other Providers: Frederick Nieves Other Interventions: Discharge Summary Assessment (RN) Last Done: 05/01/24 13:41
== END 2024-05-01 13:59 | disposition home or self-care (01) | DRG 375 ==
LOC: ED 13:19 → 2W 18:12 → SUATTDRO 18:12 → 2W 19:47

== ENCOUNTER 2025-05-22 08:51 | Inpatient (IN) ==
--- NOTE | 2025-05-22 09:14 | XRay Report ---
XR chest 1V not portable CLINICAL HISTORY: Sepsis COMPARISON STUDY: 05/05/2025 FINDINGS: Stable right chest port. There is interval mild elevation of the right hemidiaphragm. There is mild stranding at the right base, likely atelectasis. No other consolidation or pleural effusion seen. No pneumothorax. IMPRESSION: Interval mild elevation of the right hemidiaphragm with likely mild atelectasis right precious ng base. ACT 112: Negative or not required by law. Electronically signed by: Juwan Del Castillo M.D. 05/22/2025 9:12 AM
[2025-05-22 09:32] LABS: Hematocrit (blood only) 25.8 % (37.0-47.0); Hemoglobin 8.3 g/dl (12.0-16.0); Immature Granulocytes # (auto) 0.31 K/uL (0.01-0.20); Immature Granulocytes % (auto) 1.3 %; Mean Corpuscular Hemoglobin 27.9 pg (25.0-34.0); Mean Corpuscular Volume 86.9 fL (80.0-100.0); Platelet Count 343 K/uL (130-400); RDW Standard Deviation 43.2 fL (36.4-46.3); Red Blood Count 2.97 M/uL (4.20-5.40); White Blood Count 23.87 K/ul (4.8-10.8)
[2025-05-22 09:49] LABS: Alanine Aminotransferase 103.0 U/L (7-52); Albumin Globulin Ratio 0.7 (0.9-2); Alkaline Phosphatase 288.0 U/L (34-104); Anion Gap 10.0 (3-11); Bilirubin,Total 1.3 mg/dl (0.2-1.0); Blood Urea Nitrogen 26.0 mg/dl (6-23); Calcium 7.9 mg/dl (8.6-10.3); Carbon Dioxide 23.0 mmol/L (21-32); Chloride 94.0 mmol/L (98-107); Creatinine Clr Calc Pharmacy 54.7 ml/min; Globulin 4.0 gm/dl (2.5-4.0); Glucose 119.0 mg/dl (70-99(Fasting)); Magnesium 2.1 mg/dl (1.7-2.4); Potassium 3.8 mmol/L (3.5-5.1); Sodium 127.0 mmol/L (136-145); Total Protein 6.9 gm/dl (6.0-8.3)
[2025-05-22] MEDS: PIPERACILLIN/TAZOBACTAM 4.5 GM/100 ML BAG IV ONE (09:53)
[2025-05-22] MEDS: HYDROmorphone INJ 0.5 MG/0.5 ML SYR IV STA ×2 (09:53→13:09)
[2025-05-22] MEDS: SODIUM CHLORIDE 0.9% 2,000 ML IV ONE (09:54)
[2025-05-22 10:15] LABS: INR 1.3 (0.9-1.1); Partial Thromboplastin Time 38 Seconds (21-31); Prothrombin Time 14.1 Seconds (9.0-12.0)
[2025-05-22 10:19] LABS: Lipase 4.0 U/L (11-82)
[2025-05-22] MEDS: OPTIRAY 320 100ml IV ONE (10:20)
--- NOTE | 2025-05-22 11:05 | Emergency Department Note ---
Impression & Plan Sepsis, Intra-abdominal abscess, Leukocytosis, KERRI (acute kidney injury), Acute hyponatremia, Transaminitis, Elevated procalcitonin ED Provider Note HISTORY OF PRESENT ILLNESS: Patient is a 59-year-old female presenting with right upper quadrant abdominal pain and fevers. Patient reports she started having right upper quadrant abdominal pain 6 days ago. She reports she started having a fever 4 days ago. She had presented to outpatient [facility] for another round of her chemotherapy for her peritoneal carcinomatosis. She was found to be febrile at clinic and basic blood work was obtained that showed she had a leukocytosis of 27.22. Per report that was obtained from nurse at the clinic, patient did not receive any Neupogen/Neulasta during her last chemo. She last received cyramza/taxol on 05/15/2025. Patient reports that she has been taking her prescribed oxycodone regularly over the last few days, which is very abnormal for her. She has been taking it so frequently secondary to pain. She reports nausea but states that taking Compazine has helped with that. Denies any dysuria or hematuria. Reports that she still has her appendix and gallbladder. She has recently had a gastric resection. ROS: as above PHYSICAL EXAM: Constitutional: Patient appears in no acute distress. HENT: Head: Normocephalic and atraumatic. Eyes: EOMI, PERRL Mouth/Throat: Mucous membranes moist. Neck: Trachea midline. Neck supple. Cardiovascular: Tachycardic with regular rhythm. No murmurs, rubs or gallops. Intact distal pulses. Pulmonary/Chest: No respiratory distress. Breath sounds clear and equal bilaterally. No wheezes or rales. Abdominal: Abdomen soft, no rebound or guarding. RUQ TTP Musculoskeletal: No edema, tenderness or deformity noted. Skin: Warm and dry. No rash, erythema, pallor or cyanosis Psychiatric: Appropriate mood and affect for situation. Neurological: Alert and keenly responsive. CN II-XII grossly intact, moving all extremities equally and fully. MDM: - Vitals signs showed tachycardia. - History obtained via patient. History as above. - Chronic conditions affecting care: HTN; gastric adenocarcinoma - Differential diagnoses include, but are not limited to: UTI; pneumonia; viral syndrome; cholecystitis; appendicitis; bacteremia - Order placed for continuous cardiac monitoring. At this time, monitor showed rate of 103 bpm with normal sinus rhythm, per my interpretation. - External medical records reviewed. Laboratory workup obtained at [facility] oncology clinic was reviewed. Patient was found to have a white blood cell count of 27.22. She had a temperature of 101.3 in clinic and saturations of 89% on room air. She was also found to have elevated ALT/ALT and a hemoglobin of 8.6. - EKG image interpreted by myself showed normal sinus rhythm. Rate tachycardic at 103 bpm. QT 324. No acute ischemic changes. - Laboratory workup interpreted by myself showed leukocytosis (WBC 23.87) with neutrophil predominance; anemia (Hgb 8.3); elevated INR (1.3); hyponatremia (Na 127); KERRI (Cr 1.28); hypocalcemia (Ca 7.9); transaminitis (AST 180; ALT 103) with elevated total bilirubin (1.3); normal troponin; normal lipase; normal lactate; elevated procalcitonin (1.83) - Blood cultures obtained - Given patient's abdominal pain complaints, empiric IV Zosyn was ordered for antibiotic coverage. - CXR image reviewed by myself was negative for pneumonia, per my interpretation. - CT abdomen/pelvis with IV contrast showed a large peripheral enhancing fluid collection in the abdomen which measures 29 x 19 x 5.5 cm. This is concerning for potential abscess. Also noted to have a large pocket of fluid in the pelvis around the peritoneal enhancement. Noted to have trace pleural effusions. Questionable DVT in the right common femoral vein. Noted to have extensive intra-abdominal metastatic disease. - Patient given 0.5 mg IV dilaudid. Her oxygen saturation did drop to about 90% on room air and she was started on some supplemental oxygen. On reassessment, her pain was initially improved, but she was complaining of pain again and additional 0.5 mg IV Dilaudid was ordered. - Patient given 2L NS in ER. Patient sepsis fluid volume calculation based on ideal body weight is 1908.90 mL. - Patient has the urge to void but is unable to after 2 L of fluid. She was bladder scanned by nursing staff with over 700 cc in her bladder. [place] catheter insertion was ordered. - Discussed case with Darien Wall, LANDON on for general surgery, at 11:40 AM. She reports that the patient has a very large abscess and states that general surgeon would recommend IR consultation. States that medicine can admit the patient but if the patient would need surgical intervention beyond IR, she would need transfer - Discussed case with IR physician, Dr. Del Castillo, at at 11:50 AM. He notes that the patient is on Eliquis. The patient did take her Eliquis today. He states the patient will need to hold her Eliquis for 3 days before the procedure could be performed. He does state that it looks like the right sided abscess is drainable by IR. He again recommends her Eliquis be held for 3 days and then can plan to perform IR drainage. He request that the consult order be placed so it can be added to the IR where close. - Discussion was had with therapeutic case manager about patient's case and need for admission - Hospitalist consulted for admission. Discussed IRs plan of care as long as Eliquis is held. - [facility] ASSESSMENT AND PLAN: Diagnosis: Sepsis; intra-abdominal abscess; leukocytosis; KERRI; acute hyponatremia; transaminitis; elevated procalcitonin Plan: Fluids and Past Med/Surg History Problem List (Updated 05/22/25 @ 13:10 by Francesca Paris MD) Elevated procalcitonin (Acute) Transaminitis (Acute) Acute hyponatremia (Acute) KERRI (acute kidney injury) (Acute) Leukocytosis (Acute) Intra-abdominal abscess (Acute) Sepsis (Acute) Peritoneal abscess Cancer related pain (Acute) Nausea & vomiting (Acute) Gastric adenocarcinoma (Acute) Gastric mass Gastritis Abdominal pain Gastric perforation (Acute) Epigastric abdominal pain (Acute) Encounter for pre-operative examination Epigastric abdominal pain (Acute) Abnormal CT scan (Acute) Gastric wall thickening (Acute) HTN (hypertension) Surgical History History of colonoscopy Hx of wisdom tooth extraction Hx of tooth extraction 10/07/23 History of cardiac catheterization 07/2023. 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 How many Children do You have: 0 Feels Safe at Home: Yes during the past year weight has: decreased > 10 lbs Assistive Devices: None Allergies Allergies Allergy/AdvReac Type Severity Reaction Status Date / Time Sulfa (Sulfonamide Allergy Unknown Unknown Verified 05/22/25 10:48 Antibiotics) Home Meds Home Medications Medication Instructions Recorded Confirmed cholecalciferol (vitamin D3) 25 1,000 unit PO DAILY 04/27/24 05/22/25 mcg (1,000 unit) tablet (Vitamin D3) apixaban 5 mg tablet (Eliquis) 5 mg PO BID 05/05/25 05/22/25 gabapentin 300 mg capsule 300 mg PO TID 05/05/25 05/22/25 omega 6-una-fnw-fish oil 900 1 cap PO DAILY 05/05/25 05/22/25 mg-1,400 mg capsule,delayed release pantoprazole 40 mg tablet,delayed 40 mg PO HS 05/05/25 05/22/25 release vitamin B complex 1 cap PO DAILY 05/05/25 05/22/25 oxycodone 5 mg tablet 5 mg PO Q6H PRN Breakthrough Pain 05/22/25 05/22/25 Previous Rx's Medication Instructions Recorded fentanyl 12 mcg/hr transdermal 1 patch transdermal Q72H #5 ea 05/05/25 patch Results & Data (ED) Vital Signs Vital Signs - 24 hr 05/22/25 08:57 05/22/25 09:21 05/22/25 09:53 Temperature 37.2 C Temperature Source Oral Pulse Rate 106 H 102 H 97 H Respiratory Rate 20 21 Respiratory Effort / Characteristics Non-Labored Spontaneous Respiratory Depth Normal Respiratory Pattern Regular Blood Pressure 121/75 115/74 Blood Pressure Mean 90 92 Pulse Oximetry 93 98 Oxygen Delivery Method Room Air Sepsis Recent Fever Within 48 Hours No Sepsis New/Unexplained Change in Mental Status N/A Sepsis Action Taken by Nursing No Action Required 05/22/25 10:00 05/22/25 10:47 Temperature Temperature Source Pulse Rate 96 H Respiratory Rate 20 Respiratory Effort / Characteristics Respiratory Depth Respiratory Pattern Blood Pressure 123/73 Blood Pressure Mean 83 Pulse Oximetry 97 90 Oxygen Delivery Method Room Air Sepsis Recent Fever Within 48 Hours Sepsis New/Unexplained Change in Mental Status Sepsis Action Taken by Nursing Laboratory Data 05/22/25 09:16 05/22/25 09:16 Lab Results 05/22/25 Range/Units 09:16 WBC 23.87 H (4.8-10.8) K/ul RBC 2.97 L (4.20-5.40) M/uL Hgb 8.3 L (12.0-16.0) g/dl Hct 25.8 L (37.0-47.0) % MCV 86.9 (80.0-100.0) fL MCH 27.9 (25.0-34.0) pg MCHC 32.2 (32.0-36.0) g/dL RDW Std Deviation 43.2 (36.4-46.3) fL RDW Coeff of [place] 14.0 (11.5-14.5) % Plt Count 343 (130-400) K/uL MPV 10.2 (9.4-12.4) fL Immature Gran % (Auto) 1.3 % Neut % (Auto) 82.8 % Lymph % (Auto) 5.0 % Hart % (Auto) 10.6 % Eos % (Auto) 0.1 % Baso % (Auto) 0.2 % Neut # (Auto) 19.75 H (1.40-6.50) K/uL Lymph # (Auto) 1.20 (1.20-3.40) K/uL Hart # (Auto) 2.53 H (0.11-0.59) K/uL Eos # (Auto) 0.03 (0.00-0.50) K/uL Baso # (Auto) 0.05 (0.00-0.20) K/uL Immature Gran # (Auto) 0.31 H (0.01-0.20) K/uL PT 14.1 H (9.0-12.0) Seconds INR 1.3 H (0.9-1.1) APTT 38 H (21-31) Seconds PTT Ratio 1.4 Sodium 127 L (136-145) mmol/L Potassium 3.8 (3.5-5.1) mmol/L Chloride 94 L (98-107) mmol/L Carbon Dioxide 23 (21-32) mmol/L Anion Gap 10 (3-11) BUN 26 H (6-23) mg/dl Creatinine 1.28 H (0.6-1.2) mg/dl Est Cr Clr Drug Dosing 54.7 ml/min eGFR 48.26 BUN/Creatinine Ratio 20.3 H (10-20) Glucose 119 H (70-99(Fasting)) mg/dl Lactate 1.1 (0.4-2.0) mmol/L Calcium 7.9 L (8.6-10.3) mg/dl Magnesium 2.1 (1.7-2.4) mg/dl Total Bilirubin 1.3 H (0.2-1.0) mg/dl AST 180 H (13-39) U/L ALT 103 H (7-52) U/L Alkaline Phosphatase 288 H (34-104) U/L Troponin I High Sens 11.2 (0-14) pg/ml Total Protein 6.9 (6.0-8.3) gm/dl Albumin 2.9 L (3.4-5.0) gm/dl Globulin 4.0 (2.5-4.0) gm/dl Albumin/Globulin Ratio 0.7 L (0.9-2) Lipase 4 L (11-82) U/L Procalcitonin 1.83 H (0-0.5) ng/ml Administered Medications Discontinued Medications Hydromorphone HCl (Hydromorphone Inj 0.5 Mg/0.5 Ml Syr) 0.5 mg IV NOW STA Stop: 05/22/25 09:21 Last Admin: 05/22/25 09:53 Dose: 0.5 mg Documented By: NIKKY Sodium Chloride (Nss) 2,000 mls @ 999 mls/hr IV .Q2H1M ONE Stop: 05/22/25 11:20 Last Infusion: 05/22/25 12:26 Dose: Infused Documented By: Admin: 05/22/25 09:54 Dose: 999 mls/hr Documented By: NIKKY Piperacillin Sod/Tazobactam Sod (Zosyn) 4.5 gm in 100 mls @ 200 mls/hr IV NOW ONE; Protocol Stop: 05/22/25 09:49 Last Infusion: 05/22/25 10:34 Dose: Infused Documented By: Admin: 05/22/25 09:53 Dose: 200 mls/hr Documented By: NIKKY Ioversol (Optiray 320 100ml) 93 ml IV ONCE ONE Stop: 05/22/25 10:19 Last Admin: 05/22/25 10:20 Dose: 93 ml Documented By: GES Imaging Data Radiologist's Impression: Chest X-Ray 05/22/25 09:00 XR chest 1V not portable CLINICAL HISTORY: Sepsis COMPARISON STUDY: 05/05/2025 FINDINGS: Stable right chest port. There is interval mild elevation of the right hemidiaphragm. There is mild stranding at the right base, likely atelectasis. No other consolidation or pleural effusion seen. No pneumothorax. IMPRESSION: Interval mild elevation of the right hemidiaphragm with likely mild atelectasis right lung base. ACT 112: Negative or not required by law. Electronically signed by: Juwan Del Castillo M.D. 05/22/2025 9:12 AM Abdomen/Pelvis CT 05/22/25 09:20 CT SCAN OF THE ABDOMEN AND PELVIS WITH IV CONTRAST CLINICAL HISTORY: Fever. Right Upper quadrant abdominal pain. Gastric cancer. COMPARISON STUDY: Abdominal CT dated 05/05/2025 TECHNIQUE: Following the IV administration of 93 cc of Optiray 320, CT scan of the abdomen and pelvis is performed from the lung bases to the proximal femora. Images are reviewed in the axial, sagittal, and coronal planes. IV contrast was administered without complication. A dose lowering technique was utilized adhering to the principles of ALARA. CT DOSE: 1386.5 mGy.cm FINDINGS: Lung bases: The tip of a central venous infusion port catheter terminates in the right atrium. The heart is enlarged and without pericardial effusion. There are trace pleural effusions with dependent consolidation. Right cardiophrenic lymphadenopathy shows diminished attenuation as compared to 04/27/2025, likely degenerative related change. The largest node is seen on image #49 and measures 2.0 x 1.6 cm. Liver: The contrast-enhanced liver is normal in size, contour, and attenuation. There is no intrahepatic biliary ductal dilatation. The hepatic veins and portal veins are patent. A 1.8 cm low-attenuation right lobe lesion on image #60 and a 1.6 cm low-attenuation right lobe lesion on image #86 have increased in size and decreased in density from 05/05/2025. These may represent treated metastases. A subcentimeter low-attenuation right lobe lesion (98 is new from previous. There are serosal implants along the hepatic surface. Gallbladder: Unremarkable. Spleen: Normal in size and attenuation. There are serosal implants along the splenic hilum. Pancreas: Moderately atrophic and grossly unremarkable. Adrenal glands: Unremarkable. Kidneys: The contrast enhanced kidneys are normal in size and without hydronephrosis. The kidneys enhance symmetrically. An 11 mm cyst is noted in the left upper pole. Abdominal vasculature: The abdominal aorta is normal in course and caliber noting mild atherosclerotic calcification. Question artifact versus deep venous thrombosis in the right common femoral vein. Stomach and bowel: There is postsurgical change from distal gastrectomy with gastrojejunostomy. There is moderate clonic fecal retention. No bowel obstruction is seen. The appendix is not visualized. Peritoneum: No intraperitoneal free air is seen. Again seen are findings of peritoneal carcinomatosis. There has been a mixed response to treatment with both enlarging and decreasing lesions from 05/05/2025. Lesions over a short diminished attenuation from previous, likely related to some degree of treatment response. A large necrotic lesion in the right lower quadrant on image #202 measures approximate 9 x 6 cm. A midline surgical scar is noted. There is peritoneal thickening and enhancement. A thick-walled and peripherally enhancing fluid collection deep to the right lateral abdominal wall extends from the diaphragm of the right lower quadrant. This measures approximately 29 x 19 x 5.5 cm in aggregate dimension as seen on coronal image #50. The more inferior loculation on image #197 measures approximately 13 x 3 cm in axial dimension. This is located immediately adjacent to the necrotic lesion. The history this fluid collection cannot be assessed and imaging. A pocket of fluid in the central pelvis with surrounding peritoneal enhancement measures approximately 11 x 8.5 cm. There is a small amount of ascites in the left upper quadrant. Serosal implants are seen along the transverse colon. Lymphadenopathy: Retroperitoneal lymphadenopathy is again noted. This shows a mixed response to treatment, some nodes having increased and others decreased in size from 04/27/2025. A left periaortic mirta aggregate on image #169 measures 3.1 x 1.6 cm. A right iliac chain node on image #226 is increased in size, now measuring 2.1 x 1.3 cm. Pelvic viscera: The bladder wall appears thickened with surrounding infiltration. The Uterus and adnexa are normal as visualized noting a 3.4 cm dominant follicle in the right ovary. Skeletal structures: No lytic or blastic lesions are seen. There is mild lumbosacral spondylosis and scoliosis. IMPRESSION: 1. There is postsurgical change from distal gastrectomy with gastrojejunostomy. No bowel obstruction is seen. 2. Again seen is evidence of extensive intra-abdominal metastatic disease with lymphadenopathy, hepatic metastases, and peritoneal carcinomatosis. There has been a mixed response to treatment as compared to 05/22/2025, with overall decreased attenuation of the lesions. This likely represents at least some treatment response. 3. There is a large necrotic peritoneal mass in the right lower quadrant which appears contiguous with a large thick walled and peripherally enhancing collection. The collection extends from the right hemidiaphragm to the right lower quadrant, and the stability of this fluid cannot be assessed by imaging. A large abscess is not excluded. It is unclear if this large necrotic mass communicates with the loops of adjacent bowel. 4. There is an additional large pocket of fluid in the pelvis the surrounding peritoneal enhancement. This does not appear to be organized. 5. Cardiomegaly. 6. There are trace pleural effusions with dependent consolidation. This could represent atelectasis and/or pneumonia and clinical correlation will be required. 7. The bladder wall appears thickened with mild surrounding infiltration. Correlate with clinical findings and urinalysis. 8. Question artifact versus DVT in the right common femoral vein. Ultrasound is recommended for further assessment. 9. Additional findings as above. ACT 112: Negative or not required by law. Electronically signed by: Jose A Joe M.D. 05/22/2025 11:17 AM Discharge Plan Visit Data Chief Complaint: Referred by Doctor Stated Complaint: DOC SIMMONS REF,FEVER,ABN LABS,DEHYDRATION ED Provider: Francesca Paris Discharge Problem: Sepsis, Intra-abdominal abscess, Leukocytosis, KERRI (acute kidney injury), Acute hyponatremia, Transaminitis, Elevated procalcitonin Condition: Serious Forms Stand Alone Forms: [employer] Prescriptions Prescriptions: No Action cholecalciferol (vitamin D3) [Vitamin D3] 25 mcg (1,000 unit) Tablet 1,000 unit PO DAILY gabapentin 300 mg capsule 300 mg PO TID vitamin B complex [B Complex] Capsule 1 cap PO DAILY [place] 3 Fish Oil 900-1,400 mg Capsule,Delayed Release(Dr/Ec) 1 cap PO DAILY Eliquis 5 mg tablet 5 mg PO BID pantoprazole 40 mg tablet,delayed release (DR/EC) 40 mg PO HS fentanyl 12 mcg/hr patch 72 hour 1 patch transdermal Q72H Qty: 5 0RF oxycodone 5 mg tablet 5 mg PO Q6H PRN (Reason: Breakthrough Pain) Referrals Referrals: Clarisse Dickerson DO [Primary Care Provider] -
--- NOTE | 2025-05-22 11:18 | CT Scan Report ---
CT SCAN OF THE ABDOMEN AND PELVIS WITH IV CONTRAST CLINICAL HISTORY: Fever. Right Upper quadrant abdominal pain. Gastric cancer. COMPARISON STUDY: Abdominal CT dated 05/05/2025 TECHNIQUE: Following the IV administration of 93 cc of Optiray 320, CT scan of the abdomen and pelvi s is performed from the lung bases to the proximal femora. Images are reviewed in the axial, sagittal , and coronal planes. IV contrast was administered without complication. A dose lowering technique wa s utilized adhering to the principles of ALARA. CT DOSE: 1386.5 mGy.cm FINDINGS: Lung bases: The tip of a central venous infusion port catheter terminates in the right atrium. The he art is enlarged and without pericardial effusion. There are trace pleural effusions with dependent co nsolidation. Right cardiophrenic lymphadenopathy shows diminished attenuation as compared to , likely degenerative related change. The largest node is seen on image #49 and measures 2.0 x 1.6 c m. Liver: The contrast-enhanced liver is normal in size, contour, and attenuation. There is no intrahepa tic biliary ductal dilatation. The hepatic veins and portal veins are patent. A 1.8 cm low-attenuatio n right lobe lesion on image #60 and a 1.6 cm low-attenuation right lobe lesion on image #86 have inc reased in size and decreased in density from 05/05/2025. These may represent treated metastases. A sub centimeter low-attenuation right lobe lesion (98 is new from previous. There are serosal implants beto ng the hepatic surface. Gallbladder: Unremarkable. Spleen: Normal in size and attenuation. There are serosal implants along the splenic hilum. Pancreas: Moderately atrophic and grossly unremarkable. Adrenal glands: Unremarkable. Kidneys: The contrast enhanced kidneys are normal in size and without hydronephrosis. The kidneys enh ance symmetrically. An 11 mm cyst is noted in the left upper pole. Abdominal vasculature: The abdominal aorta is normal in course and caliber noting mild atheroscleroti c calcification. Question artifact versus deep venous thrombosis in the right common femoral vein. Stomach and bowel: There is postsurgical change from distal gastrectomy with gastrojejunostomy. There is moderate clonic fecal retention. No bowel obstruction is seen. The appendix is not visualized. Peritoneum: No intraperitoneal free air is seen. Again seen are findings of peritoneal carcinomatosis . There has been a mixed response to treatment with both enlarging and decreasing lesions from 025. Lesions over a short diminished attenuation from previous, likely related to some degree of cameron tment response. A large necrotic lesion in the right lower quadrant on image #202 measures approxima te 9 x 6 cm. A midline surgical scar is noted. There is peritoneal thickening and enhancement. A thi ck-walled and peripherally enhancing fluid collection deep to the right lateral abdominal wall extend s from the diaphragm of the right lower quadrant. This measures approximately 29 x 19 x 5.5 cm in agg regate dimension as seen on coronal image #50. The more inferior loculation on image #197 measures ap proximately 13 x 3 cm in axial dimension. This is located immediately adjacent to the necrotic lesion . The history this fluid collection cannot be assessed and imaging. A pocket of fluid in the central pelvis with surrounding peritoneal enhancement measures approximately 11 x 8.5 cm. There is a small a mount of ascites in the left upper quadrant. Serosal implants are seen along the transverse colon. Lymphadenopathy: Retroperitoneal lymphadenopathy is again noted. This shows a mixed response to treat ment, some nodes having increased and others decreased in size from 04/27/2025. A left periaortic daina l aggregate on image #169 measures 3.1 x 1.6 cm. A right iliac chain node on image #226 is increased in size, now measuring 2.1 x 1.3 cm. Pelvic viscera: The bladder wall appears thickened with surrounding infiltration. The Uterus and adne xa are normal as visualized noting a 3.4 cm dominant follicle in the right ovary. Skeletal structures: No lytic or blastic lesions are seen. There is mild lumbosacral spondylosis and scoliosis. IMPRESSION: 1. There is postsurgical change from distal gastrectomy with gastrojejunostomy. No bowel obstruction is seen. 2. Again seen is evidence of extensive intra-abdominal metastatic disease with lymphadenopathy, hepat ic metastases, and peritoneal carcinomatosis. There has been a mixed response to treatment as compare d to 05/22/2025, with overall decreased attenuation of the lesions. This likely represents at least so me treatment response. 3. There is a large necrotic peritoneal mass in the right lower quadrant which appears contiguous wit h a large thick walled and peripherally enhancing collection. The collection extends from the right h emidiaphragm to the right lower quadrant, and the stability of this fluid cannot be assessed by imagi ng. A large abscess is not excluded. It is unclear if this large necrotic mass communicates with the loops of adjacent bowel. 4. There is an additional large pocket of fluid in the pelvis the surrounding peritoneal enhancement. This does not appear to be organized. 5. Cardiomegaly. 6. There are trace pleural effusions with dependent consolidation. This could represent atelectasis a nd/or pneumonia and clinical correlation will be required. 7. The bladder wall appears thickened with mild surrounding infiltration. Correlate with clinical fin dings and urinalysis. 8. Question artifact versus DVT in the right common femoral vein. Ultrasound is recommended for furth er assessment. 9. Additional findings as above. ACT 112: Negative or not required by law. Electronically signed by: Jose A Joe M.D. 05/22/2025 11:17 AM
--- NOTE | 2025-05-22 12:24 | Surgery Consultation ---
<Statement entered by Yves Townsend DO - 05/22/25 15:12> I have seen this patient with the surgical team and I agree with this plan. Date of Consultation May 22, 2025 Assessment & Plan (1) Gastric adenocarcinoma: This is a 59y F with a PMH of gastric adenocarcinoma s/p gastric resection in 09/[address] [place] [facility] [place] presents to the [facility] ED on 05/22/25 with complaints of fevers and right sided abdominal pain over the last several days. Patient showed up to her chemo appointment today and because of her fever she was sent to the ER for further evaluation. She underwent a CT a/p that showed postsurgical change from distal gastrectomy with gastrojejunostomy. She has + extensive metastatic disease. It also shows a large necrotic peritoneal mass in the right lower quadrant which appears contiguous with a large thick walled and peripherally enhancing collection. The collection extends from the right hemidiaphragm to the right lower quadrant. In the ER her blood work shows WBC 23.8, Hbg 8.7, Cr 1.2. Vitals show tachycardia into the 100s, blood pressures a re stable, temp 99F. Abdomen has mild distention with discomfort to palpation along the full R sided abdomen. The ER was able to reach out to our IR dept who reviewed patients CT scan and agreed they could drain the collection of concern. Given the fact she is on eliquis this may not be able to be performed until the end of the week. Would hold her oral blood thinner. Start IV abx for concern of infection. May have some clears for now and ensure NPO midnight prior to IR procedure. If patient shows signs of clinical decline may need to consider tsfer to center where they may consider sooner IR drainage vs surgical intervention if indicated. (2) Peritoneal abscess: History of Present Illness History of Present Illness This is a 59y F with a PMH of gastric adenocarcinoma s/p gastric resection in 09/[address] [place] [facility] [place] who presents to the [facility] ED on 05/22/25 with complaints of fevers and right sided abdominal pain. Patient showed up to her chemo appointment today and because of her fever she was sent to the ER for further evaluation. She underwent a CT a/p that showed postsurgical change from distal gastrectomy with gastrojejunostomy. She has + extensive metastatic disease. It also shows a large necrotic peritoneal mass in the right lower quadrant which appears contiguous with a large thick walled and peripherally enhancing collection. The collection extends from the right hemidiaphragm to the right lower quadrant. The patient reports her pain started last and this was associated with nausea/vomiting. Her fevers started on Wednesday. She reports having to increase her prn oxycodone use to help manage the pain. She endorses low appetite but is able to eat and drink without issues. Reports last BM was 3 days ago. She has some pain with deep inspirations, otherwise no chest pain or sob at baseline. No chills. Reports 2 rounds of different chemo completed thus far, last was last week. She is on eliquis and took a dose this AM. Allergies Allergy/AdvReac Type Severity Reaction Status Date / Time Sulfa (Sulfonamide Allergy Unknown Unknown Verified 05/22/25 10:48 Antibiotics) Home Medications Medication Instructions Recorded Confirmed Type cholecalciferol (vitamin D3) 25 1,000 unit PO DAILY 04/27/24 05/22/25 History mcg (1,000 unit) tablet (Vitamin D3) apixaban 5 mg tablet (Eliquis) 5 mg PO BID 05/05/25 05/22/25 History fentanyl 12 mcg/hr transdermal 1 patch transdermal Q72H #5 ea 05/05/25 05/22/25 Rx patch gabapentin 300 mg capsule 300 mg PO TID 05/05/25 05/22/25 History omega 7-kkg-qfn-fish oil 900 1 cap PO DAILY 05/05/25 05/22/25 History mg-1,400 mg capsule,delayed release pantoprazole 40 mg tablet,delayed 40 mg PO HS 05/05/25 05/22/25 History release vitamin B complex 1 cap PO DAILY 05/05/25 05/22/25 History oxycodone 5 mg tablet 5 mg PO Q6H PRN Breakthrough Pain 05/22/25 05/22/25 History Patient History Surgical History History of colonoscopy Hx of wisdom tooth extraction Hx of tooth extraction 10/07/23 History of cardiac catheterization 07/2023. [facility] [place], no stents - follows w/ Fabiana [facility], [place] Family History Mother Hypertension Coronary heart disease fatal MD age 60 Social History Smoking Status: Never smoker Second Hand Exposure: No; Do You Dip or Chew Tobacco: No; Hx Alcohol Use: No Hx Substance Use: No Preferred Language: Bengali Communication Ability: Effective Hospital Aide Required: No Beliefs That Will Affect Care: None marital status: Current Living Situation: Spouse current occupational status: employed current occupation: [employer] How many Children do You have: 0 Feels Safe at Home: Yes during the past year weight has: decreased > 10 lbs Assistive Devices: None Review of Systems Constitutional: + fever; no chills Respiratory: no dyspnea Cardiovascular: no chest pain Gastrointestinal: + abdominal pain (right sided), + nausea , + vomiting () and + constipation Musculoskeletal: no back pain Physical Exam Physical Exam: awake/alert Respiratory: normal respiratory effort (room air) Cardiovascular: Rate/Rhythm: + tachycardic Gastrointestinal (Abdomen): Inspection/Auscultation: + abdomen distended (mild) Percussion/Palpation: + abdomen tender (across R sided abdomen from RUQ to RLQ) midline scar noted Results & Data Vital Signs (Past 12 Hours) Vital Signs Temp Pulse Resp BP Pulse Ox O2 Del Method 05/22/25 10:47 90 Room Air 05/22/25 10:00 96 H 20 123/73 97 05/22/25 09:53 97 H 21 115/74 98 05/22/25 09:21 102 H 05/22/25 08:57 99.0 F 106 H 20 121/75 93 Room Air Diagnostic Findings CT SCAN OF THE ABDOMEN AND PELVIS WITH IV CONTRAST CLINICAL HISTORY: Fever. Right Upper quadrant abdominal pain. Gastric cancer. COMPARISON STUDY: Abdominal CT dated 05/05/2025 TECHNIQUE: Following the IV administration of 93 cc of Optiray 320, CT scan of the abdomen and pelvis is performed from the lung bases to the proximal femora. Images are reviewed in the axial, sagittal, and coronal planes. IV contrast was administered without complication. A dose lowering technique was utilized adhering to the principles of ALARA. CT DOSE: 1386.5 mGy.cm FINDINGS: Lung bases: The tip of a central venous infusion port catheter terminates in the right atrium. The heart is enlarged and without pericardial effusion. There are trace pleural effusions with dependent consolidation. Right cardiophrenic lymphadenopathy shows diminished attenuation as compared to 04/27/2025, likely degenerative related change. The largest node is seen on image #49 and measures 2.0 x 1.6 cm. Liver: The contrast-enhanced liver is normal in size, contour, and attenuation. There is no intrahepatic biliary ductal dilatation. The hepatic veins and portal veins are patent. A 1.8 cm low-attenuation right lobe lesion on image #60 and a 1.6 cm low-attenuation right lobe lesion on image #86 have increased in size and decreased in density from 05/05/2025. These may represent treated metastases. A subcentimeter low-attenuation right lobe lesion (98 is new from previous. There are serosal implants along the hepatic surface. Gallbladder: Unremarkable. Spleen: Normal in size and attenuation. There are serosal implants along the splenic hilum. Pancreas: Moderately atrophic and grossly unremarkable. Adrenal glands: Unremarkable. Kidneys: The contrast enhanced kidneys are normal in size and without hydronephrosis. The kidneys enhance symmetrically. An 11 mm cyst is noted in the left upper pole. Abdominal vasculature: The abdominal aorta is normal in course and caliber noting mild atherosclerotic calcification. Question artifact versus deep venous thrombosis in the right common femoral vein. Stomach and bowel: There is postsurgical change from distal gastrectomy with gastrojejunostomy. There is moderate clonic fecal retention. No bowel obstruction is seen. The appendix is not visualized. Peritoneum: No intraperitoneal free air is seen. Again seen are findings of peritoneal carcinomatosis. There has been a mixed response to treatment with both enlarging and decreasing lesions from 05/05/2025. Lesions over a short diminished attenuation from previous, likely related to some degree of treatment response. A large necrotic lesion in the right lower quadrant on image #202 measures approximate 9 x 6 cm. A midline surgical scar is noted. There is peritoneal thickening and enhancement. A thick-walled and peripherally enhancing fluid collection deep to the right lateral abdominal wall extends from the diaphragm of the right lower quadrant. This measures approximately 29 x 19 x 5.5 cm in aggregate dimension as seen on coronal image #50. The more inferior loculation on image #197 measures approximately 13 x 3 cm in axial dimension. This is located immediately adjacent to the necrotic lesion. The history this fluid collection cannot be assessed and imaging. A pocket of fluid in the central pelvis with surrounding peritoneal enhancement measures approximately 11 x 8.5 cm. There is a small amount of ascites in the left upper quadrant. Serosal implants are seen along the transverse colon. Lymphadenopathy: Retroperitoneal lymphadenopathy is again noted. This shows a mixed response to treatment, some nodes having increased and others decreased in size from 04/27/2025. A left periaortic mirta aggregate on image #169 measures 3.1 x 1.6 cm. A right iliac chain node on image #226 is increased in size, now measuring 2.1 x 1.3 cm. Pelvic viscera: The bladder wall appears thickened with surrounding infiltration. The Uterus and adnexa are normal as visualized noting a 3.4 cm dominant follicle in the right ovary. Skeletal structures: No lytic or blastic lesions are seen. There is mild lumbosacral spondylosis and scoliosis. IMPRESSION: 1. There is postsurgical change from distal gastrectomy with gastrojejunostomy. No bowel obstruction is seen. 2. Again seen is evidence of extensive intra-abdominal metastatic disease with lymphadenopathy, hepatic metastases, and peritoneal carcinomatosis. There has been a mixed response to treatment as compared to 05/22/2025, with overall decreased attenuation of the lesions. This likely represents at least some treatment response. 3. There is a large necrotic peritoneal mass in the right lower quadrant which appears contiguous with a large thick walled and peripherally enhancing collection. The collection extends from the right hemidiaphragm to the right lower quadrant, and the stability of this fluid cannot be assessed by imaging. A large abscess is not excluded. It is unclear if this large necrotic mass communicates with the loops of adjacent bowel. 4. There is an additional large pocket of fluid in the pelvis the surrounding peritoneal enhancement. This does not appear to be organized. 5. Cardiomegaly. 6. There are trace pleural effusions with dependent consolidation. This could represent atelectasis and/or pneumonia and clinical correlation will be required. 7. The bladder wall appears thickened with mild surrounding infiltration. Correlate with clinical findings and urinalysis. 8. Question artifact versus DVT in the right common femoral vein. Ultrasound is recommended for further assessment. 9. Additional findings as above. ACT 112: Negative or not required by law. Electronically signed by: Jose A Joe M.D. 05/22/2025 11:17 AM PG Care Time/CCT Total # of Minutes Spent Total Time Spent with Patient: Total time spent is greater than 50% in coordination of care (as documented) at patient's floor/unit and/or counseling patient: Coding Level of Care Code 49023 IN/OBS CONSULT LVL 3,45M Diagnoses Gastric adenocarcinoma C16.9 Peritoneal abscess K65.1
--- NOTE | 2025-05-22 13:18 | History & Physical Report ---
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 #Sepsis #Intra abdominal abscess --CT a/p: There is a large necrotic peritoneal mass in the right lower quadrant which appears contiguous with a large thick walled and peripherally enhancing collection. The collection extends from the right hemidiaphragm to the right lower quadrant, and the stability of this fluid cannot be assessed by imaging. A large abscess is not excluded. It is unclear if this large necrotic mass commun icates with the loops of adjacent bowel. Pt meets sepsis criteria 2/2 leukocytosis, tachycardia with evidence of likely intraabdominal abscess in setting of worsening abd pain spoke to general surgery team who recommends IR Drainage ED provider spoke to Dr. Del Castillo who states must hold eliquis 3 days, last dose 05/22 in a.m., will plan to do IR Drainage on Wednesday, will need to be NPO after midnight continue broad spectrum antibiotics with IV zosyn and Vanco Had extensive discussion with patient that she would benefit from tertiary center evaluation due to extensive nature of her metastatic disease in the event of decompensation from sepsis She is aware of potential risks of decompensation, but wishes to attempt treatment and watch and wait. In event of clinical decompensation due to lack of source control she will require emergent transfer and she is aware of this She is a DNR/DNI; however she would want vasopressor support in event she would require it continue to hold eliquis clears okay for now per surgery #Metastatic Gastric Adenocarcinoma s/p neoadjuvant chemo, s/p gastrectomy/lymph node dissection 10/01 currently receiving paclitaxel #Metastasis to intrabdominal lymph nodes and peritoneal carcinomatosis #Large R transverse colon mass s/p bx + neuroendocrine origin ? new primary Follows Dr. Candelaria locally Had 2nd opinion at [facility] Dr. Alba last tx 05/15, currently on Paclitaxel Of note pt did not receive any recent GSF treatments --CT a/p There is postsurgical change from distal gastrectomy with gastrojejunostomy. No bowel obstruction is seen.2. Again seen is evidence of extensive intra-abdominal metastatic disease with lymphadenopathy, hepatic metastases, and peritoneal carcinomatosis. There has been a mixed response to treatment as compared to 05/22/2025, with overall decreased attenuation of the lesions. This likely represents at least some treatment response. Pt currently following with outpt palliative care through [facility] as well, ca ncer is not curable but treating to improve QOL #Hx of DVT/R jugular thrombus 07/[address] a/p ? artifact vs dvt in R femoral vein B/L venous dopplers negative for DVT hold eliquis, reached out to radiology w/o response yet regarding bridging CT reached out stating they will talk to Thierno of IR tomorrow to discuss timing if can be done sooner Will also need to clarify if therapeutic lovenox needs started until procedure #Acute urinary retention unable to void x 2, shepherd placed 800cc of urine removed pt reports not urinating as much lately, but attributed to not eating/drinking much ? if 2/2 extensive abd mets, maintain shepherd for now, initial UA negative #Transaminitis T bili 1.3, AST 180 ALT 103 ALP 288 ? if 2/2 chemotherapy paclitaxel vs mets, CT a/p mentions serosal implants along hepatic surface repeat in a.m., CT a/p confirms no biliary ductal dilatation will repeat, close monitoring #DVT ppx: Eliquis on hold, resume as soon as able, consider bridging with lovenox after able to reach IR PCP: Clarisse Dickerson DNR/DNI - long discussion with pt, she would not want resuscitative measures in the event of cardiac arrest or respiratory arrest; however, in event of decompensation in regards to sepsis she is willing to trial vasopressor therapy/support while treating acute infection Dispo: admit to PCU Pt was seen and examined in collaboration with Dr. Alvarez, please see addendum I spent a total of 90 minutes coordinating, documenting and providing care for this patient excluding time spent in the performance of separately billed services or time spent by another provider/QHP. History of Present Illness Chief Complaint: Abd pain x 6 days. 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 Patient presented to her hematology clinic today and was found to have a fever. Lab work was ordered which showed leukocytosis, KERRI and hyponatremia and she was referred to ED for further evaluation. Of significance patient initially completed neoadjuvant chemotherapy with modified FOLFOX 7 12/01 to 08/23/2024. She then underwent gastrectomy and lymph node dissection in September 2024. Pathological T3 N0 as all 19+3 lymph nodes were negative for metastatic disease. She then completed 6 cycles of 5 fluorouracil and during the first cycle she received half the dose of oxaliplatin but was discontinued due to worsening neuropathy symptoms. Recent CT scan as well as PET CT scan revealed a 2.4 cm soft tissue density involving the right proximal transverse colon which was suspicious for a serosal implant. Colonoscopy evaluation was unremarkable. She subsequently then had a biopsy of the serosal implant of the transverse colon which final pathology showed a carcinoma with neuroendocrine differentiation. Previous to specimens in her case with the gastric mass as well as gastrectomy specimen did not show any neuroendocrine differentiation, pathologic suggest this could be a new tumor. She was seen and evaluated at [facility] who recommended carboplatin etoposide in her case. She received her first cycle of this 04/16 to 04/18/2025. Right prior to this she started having increasing abdominal pain and went to [facility] ER. CT findings showed significant disease progression with enlarging necrotic lymph nodes, enlarging soft tissue tissue mass close of the transverse colon which initially was 4 cm, now 14 cm. Paclitaxel was also added to her regimen on 05/15 which is the last time she received chemotherapy.She presented to hematology clinic today for which she was found to have a fever. She also reports right sided abdominal pain in the shape of a, "C," that is been ongoing for the last 6 days. She states the pain has been so unbearable she has been using oxycodone at home with minimal relief. When she presented to clinic today she was found to have a fever of 100. She received outpatient lab work and was found to have leukocytosis, hyponatremia and KERRI and therefore was referred to ED. She states over the last 6 days she has had very minimal oral intake in form of liquid/food. She did have a hamburger and Palestinian fries last evening for supper and it was the first meaningful intake since last . She reports not urinating as much as she normally does and very minimal bowel movements. She also had nausea and 5 episodes of vomiting on , but no vomiting since. She denies any documented fevers at home, chills, sweats, chest pain, shortness breath, cough, URI symptoms, melena, hematochezia, dysuria, increased urinary frequency with urination. In ED patient met septic criteria. She had a leukocytosis of 23,000 and was tachycardic. She had a mild KERRI with BUN of 26 and creatinine of 1.28. Her LFTs were elevated with a total bilirubin 1.3, AST 180, ALT [address] abdomen pelvis reveal large necrotic peritoneal mass in the right lower quadrant which appears contiguous with a large thick-walled and peripherally enhancing collection. This collection extends from the right hemidiaphragm to right lower quadrant in which a large abscess cannot be excluded. Blood cultures were obtained. She was started on IV Zosyn. Surgical consultation was obtained in the ED and recommendation was admission and IR drainage. Patient is on Eliquis due to history of PE and her last dose was this morning. Early intervention for radiology will be on Wednesday. Allergies Allergy/AdvReac Type Severity Reaction Status Date / Time Sulfa (Sulfonamide Allergy Unknown Unknown Verified 05/22/25 10:48 Antibiotics) Home Medications Medication Instructions Recorded Confirmed Type cholecalciferol (vitamin D3) 25 1,000 unit PO DAILY 04/27/24 05/22/25 History mcg (1,000 unit) tablet (Vitamin D3) apixaban 5 mg tablet (Eliquis) 5 mg PO BID 05/05/25 05/22/25 History fentanyl 12 mcg/hr transdermal 1 patch transdermal Q72H #5 ea 05/05/25 05/22/25 Rx patch gabapentin 300 mg capsule 300 mg PO TID 05/05/25 05/22/25 History omega 4-lvd-wtt-fish oil 900 1 cap PO DAILY 05/05/25 05/22/25 History mg-1,400 mg capsule,delayed release pantoprazole 40 mg tablet,delayed 40 mg PO BID 05/05/25 05/22/25 History release vitamin B complex 1 cap PO DAILY 05/05/25 05/22/25 History oxycodone 5 mg tablet 5 mg PO Q6H PRN Breakthrough Pain 05/22/25 05/22/25 History Past Med/Surg History Problem List Elevated procalcitonin (Acute) Transaminitis (Acute) Acute hyponatremia (Acute) KERRI (acute kidney injury) (Acute) Leukocytosis (Acute) Intra-abdominal abscess (Acute) Sepsis (Acute) Peritoneal abscess Cancer related pain (Acute) Nausea & vomiting (Acute) Gastric adenocarcinoma (Acute) Gastric mass Gastritis Abdominal pain Gastric perforation (Acute) Epigastric abdominal pain (Acute) Encounter for pre-operative examination Epigastric abdominal pain (Acute) Abnormal CT scan (Acute) Gastric wall thickening (Acute) HTN (hypertension) Surgical History History of colonoscopy Hx of wisdom tooth extraction Hx of tooth extraction 10/07/23 History of cardiac catheterization 07/2023. 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 How many Children do You have: 0 Feels Safe at Home: Yes Safety Concerns: Feels Safe At This Time during the past year weight has: decreased > 10 lbs Assistive Devices: None Review of Systems Review of Systems: All systems reviewed & are unremarkable except as noted in HPI & below Physical Exam Physical Exam: Constitutional: acute ill appearing female, drowsy due to narcotic administration, vitals as above, NAD, sitting up in bed, conversing easily Head: Normocephalic, Atraumatic Eyes conjunctivae normal, anicteric sclerae ENMT: external ear and nose normal, oropharynx dry membranes Neck: trachea midline, no thyromegaly normal visual inspection Respiratory: normal respiratory effort, lungs clear to auscultation, no wheeze, rales, rhonchi. Normal insp/exp effort, no accessory muscle use Cardiovascular: RRR, no murmur, no edema Vessels: no JVD or carotid bruit Chest: normal inspection of chest Abdomen: decreased BS throughout, Firm RUQ, tender to soft palpation, Musculoskeletal: no cyanosis or clubbing, arom x 4 Skin: no rashes, warm and dry normal turgor Neurologic: no face palsy, no dysarthria CN's II-XI intact bilaterally and moves all extremities Psychiatric: A+Ox3, euthymic affect Lymphatic: no cervical or axillary lymphadenopathy : shepherd cath with yellow urine Results & Data Results & Data Vital Signs (Past 12 Hours) Vital Signs Temp Pulse Resp BP Pulse Ox O2 Del Method 05/22/25 10:47 90 Room Air 05/22/25 10:00 96 H 20 123/73 97 05/22/25 09:53 97 H 21 115/74 98 05/22/25 09:21 102 H 05/22/25 08:57 37.2 C 106 H 20 121/75 93 Room Air Laboratory Results I have independently reviewed and interpreted patient's admitting labs including CBC, CMP, PTT, PT/INR, mag and troponin. Diagnostic Findings Chest X-Ray 05/22/25 09:00 XR chest 1V not portable CLINICAL HISTORY: Sepsis COMPARISON STUDY: 05/05/2025 FINDINGS: Stable right chest port. There is interval mild elevation of the right hemidiaphragm. There is mild stranding at the right base, likely atelectasis. No other consolidation or pleural effusion seen. No pneumothorax. IMPRESSION: Interval mild elevation of the right hemidiaphragm with likely mild atelectasis right lung base. ACT 112: Negative or not required by law. Electronically signed by: Juwan Del Castillo M.D. 05/22/2025 9:12 AM Abdomen/Pelvis CT 05/22/25 09:20 CT SCAN OF THE ABDOMEN AND PELVIS WITH IV CONTRAST CLINICAL HISTORY: Fever. Right Upper quadrant abdominal pain. Gastric cancer. COMPARISON STUDY: Abdominal CT dated 05/05/2025 TECHNIQUE: Following the IV administration of 93 cc of Optiray 320, CT scan of the abdomen and pelvis is performed from the lung bases to the proximal femora. Images are reviewed in the axial, sagittal, and coronal planes. IV contrast was administered without complication. A dose lowering technique was utilized adhering to the principles of ALARA. CT DOSE: 1386.5 mGy.cm FINDINGS: Lung bases: The tip of a central venous infusion port catheter terminates in the right atrium. The heart is enlarged and without pericardial effusion. There are trace pleural effusions with dependent consolidation. Right cardiophrenic lymphadenopathy shows diminished attenuation as compared to 04/27/2025, likely degenerative related change. The largest node is seen on image #49 and measures 2.0 x 1.6 cm. Liver: The contrast-enhanced liver is normal in size, contour, and attenuation. There is no intrahepatic biliary ductal dilatation. The hepatic veins and portal veins are patent. A 1.8 cm low-attenuation right lobe lesion on image #60 and a 1.6 cm low-attenuation right lobe lesion on image #86 have increased in size and decreased in density from 05/05/2025. These may represent treated metastases. A subcentimeter low-attenuation right lobe lesion (98 is new from previous. There are serosal implants along the hepatic surface. Gallbladder: Unremarkable. Spleen: Normal in size and attenuation. There are serosal implants along the splenic hilum. Pancreas: Moderately atrophic and grossly unremarkable. Adrenal glands: Unremarkable. Kidneys: The contrast enhanced kidneys are normal in size and without hydronephrosis. The kidneys enhance symmetrically. An 11 mm cyst is noted in the left upper pole. Abdominal vasculature: The abdominal aorta is normal in course and caliber noting mild atherosclerotic calcification. Question artifact versus deep venous thrombosis in the right common femoral vein. Stomach and bowel: There is postsurgical change from distal gastrectomy with gastrojejunostomy. There is moderate clonic fecal retention. No bowel obstruction is seen. The appendix is not visualized. Peritoneum: No intraperitoneal free air is seen. Again seen are findings of peritoneal carcinomatosis. There has been a mixed response to treatment with both enlarging and decreasing lesions from 05/05/2025. Lesions over a short diminished attenuation from previous, likely related to some degree of treatment response. A large necrotic lesion in the right lower quadrant on image #202 measures approximate 9 x 6 cm. A midline surgical scar is noted. There is peritoneal thickening and enhancement. A thick-walled and peripherally enhancing fluid collection deep to the right lateral abdominal wall extends from the diaphragm of the right lower quadrant. This measures approximately 29 x 19 x 5.5 cm in aggregate dimension as seen on coronal image #50. The more inferior loculation on image #197 measures approximately 13 x 3 cm in axial dimension. This is located immediately adjacent to the necrotic lesion. The history this fluid collection cannot be assessed and imaging. A pocket of fluid in the central pelvis with surrounding peritoneal enhancement measures approximately 11 x 8.5 cm. There is a small amount of ascites in the left upper quadrant. Serosal implants are seen along the transverse colon. Lymphadenopathy: Retroperitoneal lymphadenopathy is again noted. This shows a mixed response to treatment, some nodes having increased and others decreased in size from 04/27/2025. A left periaortic mirta aggregate on image #169 measures 3.1 x 1.6 cm. A right iliac chain node on image #226 is increased in size, now measuring 2.1 x 1.3 cm. Pelvic viscera: The bladder wall appears thickened with surrounding infiltration. The Uterus and adnexa are normal as visualized noting a 3.4 cm dominant follicle in the right ovary. Skeletal structures: No lytic or blastic lesions are seen. There is mild lumbosacral spondylosis and scoliosis. IMPRESSION: 1. There is postsurgical change from distal gastrectomy with gastrojejunostomy. No bowel obstruction is seen. 2. Again seen is evidence of extensive intra-abdominal metastatic disease with lymphadenopathy, hepatic metastases, and peritoneal carcinomatosis. There has be en a mixed response to treatment as compared to 05/22/2025, with overall decreased attenuation of the lesions. This likely represents at least some treatment response. 3. There is a large necrotic peritoneal mass in the right lower quadrant which appears contiguous with a large thick walled and peripherally enhancing collection. The collection extends from the right hemidiaphragm to the right low er quadrant, and the stability of this fluid cannot be assessed by imaging. A large abscess is not excluded. It is unclear if this large necrotic mass communicates with the loops of adjacent bowel. 4. There is an additional large pocket of fluid in the pelvis the surrounding peritoneal enhancement. This does not appear to be organized. 5. Cardiomegaly. 6. There are trace pleural effusions with dependent consolidation. This could represent atelectasis and/or pneumonia and clinical correlation will be required. 7. The bladder wall appears thickened with mild surrounding infiltration. Cor relate with clinical findings and urinalysis. 8. Question artifact versus DVT in the right common femoral vein. Ultrasound is recommended for further assessment. 9. Additional findings as above. ACT 112: Negative or not required by law. Electronically signed by: Jose A Joe M.D. 05/22/2025 11:17 AM Venous Doppler Study 05/22/25 13:42 ULTRASOUND BILATERAL LOWER EXTREMITY VENOUS CLINICAL HISTORY: Abnormal abdominal CT. Assess for DVT. COMPARISON STUDY: Abdominal CT dated 05/22/2025 TECHNIQUE: Real-time, grayscale, and color Doppler sonography of the deep veins of the right and left lower extremity was performed from the inguinal crease to the calf. Compression and augmentation were utilized. FINDINGS: There is no sonographic evidence of deep venous thrombosis identified in the right or left lower extremity. The common femoral, superficial femoral, and popliteal veins are patent and normally compressible bilaterally. The greater saphenous vein and the profunda femoris vein at the junction with the common femoral vein are clear in both legs. The visualized calf veins are patent bilaterally. IMPRESSION: There is no sonographic evidence of deep venous thrombosis identified in the right or left lower extremity. The questioned CT finding was likely artifactual. ACT 112: Negative or not required by law. Electronically signed by: oJse A Joe M.D. 05/22/2025 2:26 PM Medications Administered Medication List Discontinued Medications Hydromorphone HCl (Hydromorphone Inj 0.5 Mg/0.5 Ml Syr) 0.5 mg IV NOW STA Stop: 05/22/25 09:21 Last Admin: 05/22/25 09:53 Dose: 0.5 mg Documented By: NIKKY Hydromorphone HCl (Hydromorphone Inj 0.5 Mg/0.5 Ml Syr) 0.5 mg IV NOW STA Stop: 05/22/25 12:59 Last Admin: 05/22/25 13:09 Dose: 0.5 mg Documented By: GAGAN Sodium Chloride (Nss) 2,000 mls @ 999 mls/hr IV .Q2H1M ONE Stop: 05/22/25 11:20 Last Infusion: 05/22/25 12:26 Dose: Infused Documented By: Admin: 05/22/25 09:54 Dose: 999 mls/hr Documented By: NIKKY Piperacillin Sod/Tazobactam Sod (Zosyn) 4.5 gm in 100 mls @ 200 mls/hr IV NOW ONE; Protocol Stop: 05/22/25 09:49 Last Infusion: 05/22/25 10:34 Dose: Infused Documented By: Admin: 05/22/25 09:53 Dose: 200 mls/hr Documented By: NIKKY Ioversol (Optiray 320 100ml) 93 ml IV ONCE ONE Stop: 05/22/25 10:19 Last Admin: 05/22/25 10:20 Dose: 93 ml Documented By: GES ECG Additional Comments: I have independently reviewed and interpreted patient's admitting EKG which revealed: ST, 103 bpm, poor r wave progression, COVID-19 Results Results COVID-19 Adm Lab Results: RBC 2.97 M/uL (4.20-5.40) L 05/22/25 WBC 23.87 K/ul (4.8-10.8) H 05/22/25 Hgb 8.3 g/dl (12.0-16.0) L 05/22/25 Hct 25.8 % (37.0-47.0) L 05/22/25 Plt Count 343 K/uL (130-400) 05/22/25 Neutrophils (%) (Auto) 82.8 % 05/22/25 Lymphocytes (%) (Auto) 5.0 % 05/22/25 Monocytes # (Auto) 2.53 K/uL (0.11-0.59) H 05/22/25 Eosinophils # (Auto) 0.03 K/uL (0.00-0.50) 05/22/25 Immature Granulocyte % (Auto) 1.3 % 05/22/25 Neutrophils # (Auto) 19.75 K/uL (1.40-6.50) H 05/22/25 Lymphocytes # (Auto) 1.20 K/uL (1.20-3.40) 05/22/25 Monocytes # (Auto) 2.53 K/uL (0.11-0.59) H 05/22/25 Eosinophils # (Auto) 0.03 K/uL (0.00-0.50) 05/22/25 Basophils # (Auto) 0.05 K/uL (0.00-0.20) 05/22/25 Immature Granulocyte # (Auto) 0.31 K/uL (0.01-0.20) H 05/22 Na 127 mmol/L (136-145) L 05/22/25 K 3.8 mmol/L (3.5-5.1) 05/22/25 Cl 94 mmol/L (98-107) L 05/22/25 CO2 23 mmol/L (21-32) 05/22/25 Anion Gap 10 (3-11) 05/22/25 BUN 26 mg/dl (6-23) H 05/22/25 Creatinine 1.28 mg/dl (0.6-1.2) H 05/22/25 BUN/Creatinine Ratio 20.3 (10-20) H 05/22/25 Glucose Level 119 mg/dl (70-99(Fasting)) H 05/22/25 Ca 7.9 mg/dl (8.6-10.3) L 05/22/25 Total Bilirubin 1.3 mg/dl (0.2-1.0) H 05/22/25 AST/SGOT 180 U/L (13-39) H 05/22/25 ALT/SGPT 103 U/L (7-52) H 05/22/25 Alkaline Phosphatase 288 U/L (34-104) H 05/22/25 Total Protein 6.9 gm/dl (6.0-8.3) 05/22/25 Albumin 2.9 gm/dl (3.4-5.0) L 05/22/25 Globulin 4.0 gm/dl (2.5-4.0) 05/22/25 Albumin/Globulin Ratio 0.7 (0.9-2) L 05/22/25 Procalcitonin 1.83 ng/ml (0-0.5) H 05/22/25 PTT 38 Seconds (21-31) H 05/22/25 INR 1.3 (0.9-1.1) H 05/22/25 Chest X-Ray 05/22/25 Code Status & VTE Plan Code Status DNR/DNI Supervising Physician Co-Signing Physician Notes Attending addendum: The patient was seen and examined in the emergency room She has metastatic stomach cancer and came in with abdominal pain and fever Noted to have sepsis with possible intra-abdominal abscess On examination Lying in bed with minimal distress due to right upper quadrant abdominal pain without nausea nor vomiting Hemodynamically stable and is afebrile Chestclear to auscultate bilaterally HeartS1-S2, regular Abdomendistended, tenderness in the right upper quadrant and right lateral quadrant with some rigidity Extremities1+ edema bilaterally CNSalert awake and oriented x 3. Generally weak but no focal neurodeficit Her admission labs and imaging studies reviewed Sepsis likely secondary to intra-abdominal infection/abscess- blood cultures have been taken and she was started with intravenous Zosyn and vancomycin Metastatic adenocarcinoma of the stomach with ongoing chemotherapy Other significant medical conditions remained stable on current medication She will need IR guided drainage which has been scheduled on Wednesday Her Eliquis will be on hold and will consider giving breathing treatment with Lovenox or heparin if agreeable Agree with assessment and plan as outlined above by Alyssa Fang PA-C and take the full responsibility of care in the hospital DR Valerio Alvarez
[2025-05-22 13:34] LABS: Appearance Urine Clear (Clear); Glucose Urine UA Negative (Negative)
--- NOTE | 2025-05-22 14:00 | Electrocardiogram Report ---
Test Reason : Blood Pressure : */* mmHG Vent. Rate : 103 BPM Atrial Rate : 103 BPM P-R Int : 168 ms QRS Dur : 80 ms QT Int : 324 ms P-R-T Axes : -15 -13 -18 degrees QTcB Int : 424 ms Sinus tachycardia Minimal voltage criteria for LVH, may be normal variant ( R in aVL ) Inferior infarct , age undetermined Poor R wave progression, consider anterior [place] vs. lead placement vs. LVH Abnormal ECG When compared with ECG of 05-May-2025 06:12, Inferior infarct is now Present Confirmed by Jordan Lewis ([id number]) on 05/22/2025 2:00:26 PM Referred By: Howie Candelaria Confirmed By: Jordan Lewis
[2025-05-22] MEDS ORDERED: VANCOMYCIN CONSULT ACTIVE PRN (14:09)
--- NOTE | 2025-05-22 14:27 | Ultrasound Report ---
ULTRASOUND BILATERAL LOWER EXTREMITY VENOUS CLINICAL HISTORY: Abnormal abdominal CT. Assess for DVT. COMPARISON STUDY: Abdominal CT dated 05/22/2025 TECHNIQUE: Real-time, grayscale, and color Doppler sonography of the deep veins of the right and left lower extremity was performed from the inguinal crease to the calf. Compression and augmentation wer e utilized. FINDINGS: There is no sonographic evidence of deep venous thrombosis identified in the right or left lower extremity. The common femoral, superficial femoral, and popliteal veins are patent and normally compressible bilaterally. The greater saphenous vein and the profunda femoris vein at the junction w ith the common femoral vein are clear in both legs. The visualized calf veins are patent bilaterally. IMPRESSION: There is no sonographic evidence of deep venous thrombosis identified in the right or lef t lower extremity. The questioned CT finding was likely artifactual. ACT 112: Negative or not required by law. Electronically signed by: Jose A Joe M.D. 05/22/2025 2:26 PM
--- NOTE | 2025-05-22 15:01 | Pharmacy Report ---
Pharmacy PK ABX Note - Date of Service May 22, 2025 - Assessment and Plan Assessment * 59 year old F receiving pip/tazo and vancomcyin for treatment of possible large GI abscess. 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 Current SCr elevated from baseline at 1.28 mg/dL - eCrCL <= 55 mL/min. Will dose vancomycin via level for now Plan Vancomycin * Loading dose: 1750 mg IV x 1 * Target AUC/JEREMY of 400-600 mg/L.hr if/when SCr stabilizes. For now, will dose via level given elevated SCr. * Random level ordered for: 7/16 AM Pharmacy will continue to follow and will adjust dose/frequency as necessary. Thank you. Pharmacy has transitioned to AUC monitoring for vancomycin. AUC/JEREMY is the preferred PK/PD target and is associated with decreased risk of nephrotoxicity compared to traditional trough targets.
[2025-05-22] MEDS ORDERED: ONDANSETRON INJ 2 MG/ML 2 ML VIAL IV PRN (15:28)
[2025-05-22] MEDS: SODIUM CHLORIDE 0.9% 1,000 ML IV SCH (15:49)
[2025-05-22] MEDS: VANCOMYCIN HCL 1,750 MG in SODIUM CHLORIDE 0.9% 500 ML IV STA (15:50)
[2025-05-22] MEDS: ACETAMINOPHEN 500 MG TAB PO SCH (15:55)
[2025-05-22] MEDS ORDERED: PIPERACILLIN/TAZOBACTAM 4.5 GM/100 ML BAG IV ONE (17:47)
[2025-05-22] MEDS: GABAPENTIN 300 MG CAP PO SCH (18:53)
[2025-05-22] MEDS: PIPERACILLIN/TAZOBACTAM 4.5 GM/100 ML BAG IV SCH (19:38)
[2025-05-22] MEDS ORDERED: SODIUM CHLORIDE 0.9% 100 ML IV PRN (20:42)
[2025-05-22] MEDS ORDERED: MELATONIN 3 MG TAB PO PRN (21:00)
[2025-05-23 04:32] LABS: Hematocrit (blood only) 24.8 % (37.0-47.0); Hemoglobin 7.8 g/dl (12.0-16.0); Immature Granulocytes # (auto) 0.33 K/uL (0.01-0.20); Immature Granulocytes % (auto) 1.6 %; Mean Corpuscular Hemoglobin 27.8 pg (25.0-34.0); Mean Corpuscular Volume 88.3 fL (80.0-100.0); Platelet Count 289 K/uL (130-400); RDW Standard Deviation 45.1 fL (36.4-46.3); Red Blood Count 2.81 M/uL (4.20-5.40); White Blood Count 21.05 K/ul (4.8-10.8)
[2025-05-23] MEDS: HYDROmorphone INJ 0.5 MG/0.5 ML SYR IV PRN ×3 (04:35→10:10)
[2025-05-23 04:43] LABS: Anion Gap 8.0 (3-11); Bilirubin,Total 1.1 mg/dl (0.2-1.0); Calcium 7.6 mg/dl (8.6-10.3); Carbon Dioxide 22.0 mmol/L (21-32); Chloride 102.0 mmol/L (98-107); Magnesium 1.9 mg/dl (1.7-2.4); Potassium 3.9 mmol/L (3.5-5.1); Sodium 132.0 mmol/L (136-145)
[2025-05-23 04:54] LABS: Alanine Aminotransferase 70.0 U/L (7-52); Albumin Globulin Ratio 0.8 (0.9-2); Alkaline Phosphatase 150.0 U/L (34-104); Blood Urea Nitrogen 16.0 mg/dl (6-23); Creatinine Clr Calc Pharmacy 82.3 ml/min; Globulin 3.4 gm/dl (2.5-4.0); Glucose 89.0 mg/dl (70-99(Fasting)); Total Protein 6.0 gm/dl (6.0-8.3)
[2025-05-23 04:56] LABS: Polychromasia 1+
[2025-05-23 05:34] LABS: Chlamydia pneumoniae PCR Not Detected (NotDetected); Coronavirus 229E PCR Not Detected (NotDetected); Coronavirus CoV-2 (COVID19)PCR Not Detected (NotDetected); Coronavirus HKU1 PCR Not Detected (NotDetected); Coronavirus NL63 PCR Not Detected (NotDetected); Coronavirus OC43PCR Not Detected (NotDetected); Human Metapneumovirus PCR Not Detected (NotDetected); Parainfluenza Virus 1 PCR Not Detected (NotDetected); Parainfluenza Virus 2 PCR Not Detected (NotDetected); Parainfluenza Virus 3 PCR Not Detected (NotDetected); Parainfluenza Virus 4 PCR Not Detected (NotDetected); Respiratory Syncytial VirusPCR Not Detected (NotDetected); Rhinovirus/Enterovirus PCR Not Detected (NotDetected)
--- NOTE | 2025-05-23 07:53 | Surgery Progress Note ---
<Statement entered by Yves Townsend DO - 05/23/25 15:17> I have seen and examined this patient, I agree with this plan. Date of Service May 23, 2025 Assessment & Plan (1) Intra-abdominal abscess: Plan: pt w/ h/o gastric adenocarcinoma w/ metastatic disease here with findings of a large necrotic peritoneal mass in the rlq which appears contiguous with a large collection measuring 29 x 19 x 5.5 cm Today WBC 21 (23), Hbg 7.8. Vitals stable, afebrile Ongoing pain and tenderness in abdomen, mostly R sided Continue IV abx May need adjustment in pain regimen for better control IR recommending a 72 hour hold on eliquis prior to entertaining drain placement, ordered for this wednesday If patient has signs of clinical deterioration prior to this she will need to be transferred to tertiary center given complex oncologic case Admission and Anticipated Discharge Date Admission Date: May 22, 2025 Subjective Patient reports a bit worsening pain than prior. No nausea/vomiting. Not much bowel function. Pain worse with sitting up, better than lying down. No worsening symptoms with the clears. Physical Exam Physical Exam: awake/alert, sitting up in bed Respiratory: normal respiratory effort Gastrointestinal (Abdomen): Inspection/Auscultation: + abdomen distended Percussion/Palpation: + abdomen tender (tender throughout right sided abdomen ) and + abdomen firm Results & Data Vital Signs (Past 12 Hours) Vital Signs Temp Pulse Pulse Resp BP Pulse Ox O2 Del Method 05/23/25 02:41 98.1 F 87 16 158/82 H 95 Room Air 05/22/25 23:39 97.7 F 80 18 110/76 91 Room Air 05/22/25 22:36 91 H PG Care Time/CCT Total # of Minutes Spent Total Time Spent with Patient: Total time spent is greater than 50% in coordination of care (as documented) at patient's floor/unit and/or counseling patient: Coding Level of Care Code 11146 SUB INP/OBS CARE 12/02MIN Diagnoses Intra-abdominal abscess K65.1
[2025-05-23] MEDS ORDERED: ACETAMINOPHEN 500 MG TAB PO PRN (07:54)
[2025-05-23] MEDS: VANCOMYCIN HCL 1,250 MG in SODIUM CHLORIDE 0.9% 250 ML IV SCH (08:09)
[2025-05-23] MEDS: DOCUSATE SODIUM 100 MG CAP PO SCH (08:10)
[2025-05-23] MEDS: POLYETHYLENE (MIRALAX) 17 GM PACK PO SCH (08:10)
[2025-05-23] MEDS: CALCIUM GLUCONATE 1,000 MG/60 ML BAG IV STA (08:26)
[2025-05-23] MEDS ORDERED: ADVANCED PROBIOTIC 625 MG CAPSULE PO SCH (09:00)
--- NOTE | 2025-05-23 13:28 | Pharmacy Report ---
Pharmacy PK ABX Note - Date of Service May 23, 2025 - Assessment and Plan Assessment 05/23 * Random vancomycin level this morning was 8.9mcg/mL. Renal function improved; SCr today =0.82 so started maintenance dose of vancomycin this morning. * Preliminary blood cultures are NGTD and MRSA nasal swab is negative. * Patient with continued leukocytosis and has been afebrile 05/22: * 59 year old F receiving pip/tazo and vancomcyin for treatment of possible large GI abscess. 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 Current SCr elevated from baseline at 1.28 mg/dL - eCrCL <= 55 mL/min. Will dose vancomycin via level for now Plan Vancomycin * Loading dose: 1750 mg IV x 1 * Maintenance dose: 1250mg iv q 12 hours * Target AUC/JEREMY of 400-600 mg/L.hr * Random level ordered for: 05/24 AM Zosyn 4.5gm iv q 8 hours Pharmacy will continue to follow and will adjust dose/frequency as necessary. Thank you. Pharmacy has transitioned to AUC monitoring for vancomycin. AUC/JEREMY is the preferred PK/PD target and is associated with decreased risk of nephrotoxicity compared to traditional trough targets.
--- NOTE | 2025-05-23 14:41 | Hospitalist Progress Note ---
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 #Sepsis #Intra abdominal abscess --CT a/p: There is a large necrotic peritoneal mass in the right lower quadrant which appears contiguous with a large thick walled and peripherally enhancing collection. The collection extends from the right hemidiaphragm to the right lower quadrant, and the stability of this fluid cannot be assessed by imaging. A large abscess is not excluded. It is unclear if this large necrotic mass commun icates with the loops of adjacent bowel. -sepsis criteria 2/2 leukocytosis, tachycardia with evidence of likely intraabdominal abscess in setting of worsening abd pain Plan: -spoke to general surgery team who recommends IR Drainage -hold anticoagulation at this time, SCDs only -plan for biopsy Wednesday -continue broad spectrum abx at this time, f/u culture results -ok with transfer if ncessary -She is a DNR/DNI; however she would want vasopressor support in event she would require it #Metastatic Gastric Adenocarcinoma s/p neoadjuvant chemo, s/p gastrectomy/lymph node dissection 10/01 currently receiving paclitaxel #Metastasis to intrabdominal lymph nodes and peritoneal carcinomatosis #Worsening Hepatic Metastatic Disease #Large R transverse colon mass s/p bx + neuroendocrine origin ? new primary -Follows Dr. Candelaria locally -Had 2nd opinion at [facility] Dr. Alba -last tx 05/15, currently on Paclitaxel -Of note pt did not receive any recent GSF treatments --CT a/p There is postsurgical change from distal gastrectomy with gastrojejunostomy. No bowel obstruction is seen.2. Again seen is evidence of extensive intra-abdominal metastatic disease with lymphadenopathy, hepatic metastases, and peritoneal carcinomatosis. There has been a mixed response to treatment as compared to 05/22/2025, with overall decreased attenuation of the lesions. This likely represents at least some treatment response. -established with palliative care outpatient -given diffuse metastatic peritoneal disease, declining functional status ECOG 2 sliding to 3 at this time and sarcopenia, prognosis likely on scale of weeks to months Plan: -GOC discussion tomorrow at 10 am -discussed with Dr. Candelaria who agrees with discussion of GOC #Cancer Related Pain #Neuropathic Pain -patient has significant neuropathic and nociceptive pain throughout abdomen 2/2 diffuse peritoneal metastasis -in pain crisis on my evaluation -improved significantly with titration of meds -yesterday used: oxy 10mg x3 with minimal relief, fentanyl patch 12.5mcg, dilaudid 0.5mg x3 with minimal relief=around 105 MME Plan: -increased pain regiment as below: -increased fentanyl patch to 25mcg -stop oxycodone, rotate to 5mg PO dilaudid q3hr prn (did not dose reduce due to pain crisis in regards to rotation) -increase breakthrough dilaudid to 1.5mg q3hr prn (did not dose reduce due to pain crisis in regards to rotation) -stop gabapentin, rotate to pregablin 50 tid -if improved tomorrow will start decadron 4mg PO daily for capsular pain #Hx of DVT/R jugular thrombus 07/2024 -holding eliquis for now #Acute urinary retention -resolved I spent a total of 60 minutes in direct patient care, including [id number] time with the patient and/or family, reviewing medical records, ordering and reviewing diagnostic tests, and coordinating care with other healthcare providers. This time includes: history taking, physical examination, medical decision making, counseling, ECG interpretation, imaging interpretation, lab interpretation, orders, and education, excluding time spent in the performance of separately billed services. Admission and Anticipated Discharge Date Admission Date: May 22, 2025 Subjective Patient seen and examined at bedside. Patient in pain crisis at time of interview. Immediately grabbed nurse, increased pain regiment, and gave me dication with significant relief. Discussed case with over phone, who was appreciative of the update and will be in at 10 am tomorrow to discuss goals and values. Review of Systems Review of Systems: CONSTITUTIONAL: pain crisis EYES: Patient denies any visual symptoms. EARS, NOSE, AND THROAT: No difficulties with hearing. No symptoms of rhinitis or sore throat. CARDIOVASCULAR: Patient denies chest pains, palpitations, orthopnea and paroxysmal nocturnal dyspnea. RESPIRATORY: No dyspnea on exertion, no wheezing or cough. GI: No nausea, vomiting, diarrhea, constipation, abdominal pain, hematochezia or melena. : No urinary hesitancy or dribbling. No nocturia or urinary frequency. No abn ormal urethral discharge. MUSCULOSKELETAL: No myalgias or arthralgias. NEUROLOGIC: No chronic headaches, no seizures. Patient denies numbness, tingling or weakness. PSYCHIATRIC: Patient denies problems with mood disturbance. No problems with anxiety. ENDOCRINE: No excessive urination or excessive thirst. DERMATOLOGIC: Patient denies any rashes or skin changes. Physical Exam Physical Exam: Gen: A&O 3 NAD, sarcopenia noted HEENT: NCAT, EOMI, not icteric. External ears normal. No rhinorrhea. Moist mu cous membranes. Neck: Supple, full range of motion, no observable masses, No meningeal sign. Lungs: No Respiratory distress. CV: tachcyardic, regular rhythm Abdomen: diffuse abdominal pain and tenderness to palpation MSK: No joint swelling, no redness. Skin: No rashes, petechiae, lesions. Normal color per patient. Neuro: Normal Gait, Grossly intact. Psych: Appropriate for situation. Results & Data Results & Data Vital Signs (Past 12 Hours) Vital Signs Temp Pulse Pulse Resp BP Pulse Ox O2 Del Method 05/23/25 11:47 36.7 C 97 H 20 121/81 96 Room Air 05/23/25 08:07 36.5 C 102 H 18 134/85 94 Nasal Cannula 05/23/25 07:57 102 H 05/23/25 02:41 36.7 C 87 16 158/82 H 95 Room Air O2 Flow Rate 05/23/25 11:47 05/23/25 08:07 2 05/23/25 07:57 05/23/25 02:41 Laboratory Results -personally reviewed, downtrending leukocytosis but significant with left shift noted, downtrending Hgb, elevated transaminases/alk phos in setting of known metastatic disease, calcium 7.6 replenished, Medications Administered Fentanyl (Fentanyl 25 Mcg/Hr Tdsy) 1 patch TD Q3D MICHAELLE Stop: 06/06/25 08:29 Last Admin: 05/23/25 09:07 Dose: 1 patch Documented By: PK Gabapentin (Gabapentin 300 Mg Cap) 300 mg PO TID MICHAELLE Stop: 06/21/25 15:27 Last Admin: 05/23/25 13:38 Dose: 300 mg Documented By: Admin: 05/23/25 08:10 Dose: 300 mg Documented By: Admin: 05/22/25 19:38 Dose: 300 mg Documented By: Admin: 05/22/25 18:53 Dose: Not Given Documented By: SHIRA Hydromorphone HCl (Hydromorphone Hcl 2 Mg Tab) 5 mg PO Q3HWA PRN PRN Reason: Severe Pain (Scale 7, 8, 9,10) Stop: 06/06/25 11:07 Last Admin: 05/23/25 11:13 Dose: 5 mg Documented By: PK Sodium Chloride (Nss) 1,000 mls @ 100 mls/hr IV .Q10H MICHAELLE Stop: 05/25/25 14:14 Last Admin: 05/23/25 10:58 Dose: 100 mls/hr Documented By: Infusion: 05/23/25 10:58 Dose: Infused Documented By: Admin: 05/23/25 01:49 Dose: 100 mls/hr Documented By: Infusion: 05/23/25 01:49 Dose: Infused Documented By: Admin: 05/22/25 15:49 Dose: 100 mls/hr Documented By: PK Piperacillin Sod/Tazobactam Sod (Zosyn) 4.5 gm in 100 mls @ 25 mls/hr IV Q8H MICHAELLE; Protocol Stop: 06/01/25 17:59 Last Admin: 05/23/25 10:12 Dose: 25 mls/hr Documented By: Infusion: 05/23/25 05:43 Dose: Infused Documented By: Admin: 05/23/25 01:49 Dose: 25 mls/hr Documented By: Infusion: 05/22/25 23:38 Dose: Infused Documented By: Admin: 05/22/25 19:38 Dose: 25 mls/hr Documented By: SHIRA Vancomycin HCl 1,250 mg/ (Sodium Chloride) 275 mls @ 200 mls/hr IV Q12H MICHAELLE Stop: 06/02/25 07:59 Last Infusion: 05/23/25 10:21 Dose: Infused Documented By: Admin: 05/23/25 08:09 Dose: 200 mls/hr Documented By: PK Miscellaneous (Fentanyl Patch Remove & Waste) 1 each N/A Q3D MICHAELLE Stop: 06/22/25 08:28 Last Admin: 05/23/25 09:07 Dose: 1 each Documented By: PK Co-signed By: LEELEE Pantoprazole Sodium (Pantoprazole 40 Mg Tab) 40 mg PO BID [facility] Stop: 06/21/25 20:59 Last Admin: 05/23/25 08:10 Dose: 40 mg Documented By: Admin: 05/22/25 19:38 Dose: 40 mg Documented By: SHIRA Polyethylene Glycol (Polyethylene (Miralax) 17 Gm Pack) 17 gm PO DAILY MICHAELLE Stop: 06/22/25 08:59 Last Admin: 05/23/25 08:10 Dose: 17 gm Documented By: PK
[2025-05-23] MEDS: ACETAMINOPHEN 1,000 MG/100 ML VIAL IV PRN (18:16)
[2025-05-23] MEDS: LACTATED RINGER'S 1,000 ML IV SCH (18:16)
[2025-05-23] MEDS: PREGABALIN 50 MG CAP PO SCH (20:20)
[2025-05-24 05:50] LABS: Hematocrit (blood only) 25.8 % (37.0-47.0); Hemoglobin 8.3 g/dl (12.0-16.0); Mean Corpuscular Hemoglobin 28.9 pg (25.0-34.0); Mean Corpuscular Volume 89.9 fL (80.0-100.0); Platelet Count 229 K/uL (130-400); RDW Standard Deviation 47.0 fL (36.4-46.3); Red Blood Count 2.87 M/uL (4.20-5.40); White Blood Count 18.79 K/ul (4.8-10.8)
[2025-05-24 05:51] LABS: Anion Gap 9.0 (3-11); Bilirubin,Total 0.8 mg/dl (0.2-1.0); Calcium 7.7 mg/dl (8.6-10.3); Carbon Dioxide 20.0 mmol/L (21-32); Chloride 104.0 mmol/L (98-107); Magnesium 1.9 mg/dl (1.7-2.4); Potassium 4.1 mmol/L (3.5-5.1); Sodium 133.0 mmol/L (136-145)
[2025-05-24 05:57] LABS: Alanine Aminotransferase 48.0 U/L (7-52); Albumin Globulin Ratio 0.7 (0.9-2); Alkaline Phosphatase 148.0 U/L (34-104); Blood Urea Nitrogen 13.0 mg/dl (6-23); Creatinine Clr Calc Pharmacy 79.4 ml/min; Globulin 3.6 gm/dl (2.5-4.0); Glucose 92.0 mg/dl (70-99(Fasting)); Total Protein 6.1 gm/dl (6.0-8.3)
[2025-05-24] MEDS: HYDROmorphone INJ 2 MG/ML SYR/VIAL IV PRN (08:41)
[2025-05-24] MEDS: VANCOMYCIN HCL 1,000 MG/270 ML BAG IV SCH (08:41)
[2025-05-24] MEDS: CALCIUM GLUCONATE 1,000 MG/60 ML BAG IV STA (08:41)
--- NOTE | 2025-05-24 08:54 | Pharmacy Report ---
Pharmacy PK ABX Note - Date of Service May 24, 2025 - Assessment and Plan Assessment 05/24 * Random vancomycin level this morning resulted at 17 mcg/mL. Current AUC/JEREMY is within goal of 400-600, however current regimen is predicted to exceed 600 in the next 24 hours. Will reduce vancomycin dose. * Renal function is stable. IR guided drainage of possible abscess planned for tomorrow. 05/23 * Random vancomycin level this morning was 8.9mcg/mL. Renal function improved; SCr today =0.82 so started maintenance dose of vancomycin this morning. * Preliminary blood cultures are NGTD and MRSA nasal swab is negative. * Patient with continued leukocytosis and has been afebrile 05/22: * 59 year old F receiving pip/tazo and vancomcyin for treatment of possible large GI abscess. 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 Current SCr elevated from baseline at 1.28 mg/dL - eCrCL <= 55 mL/min. Will dose vancomycin via level for now Plan Vancomycin * 100mg IV q12 hours * Target AUC/JEREMY of 400-600 mg/L.hr * predicted steady state AUC/JEREMY = 520 * Repeat vanco level in the next 72 hours, sooner if change in clinical status/renal function Zosyn 4.5gm iv q 8 hours Pharmacy will continue to follow and will adjust dose/frequency as necessary. Thank you.
--- NOTE | 2025-05-24 11:27 | Surgery Progress Note ---
Date of Service May 24, 2025 Assessment & Plan (1) Intra-abdominal abscess: Plan: pt w/ h/o gastric adenocarcinoma w/ metastatic disease here with findings of a large necrotic peritoneal mass in the rlq which appears contiguous with a large collection measuring 29 x 19 x 5.5 cm Today WBC 18, Hbg 8. HR 100s, no fevers Ongoing pain and tenderness in abdomen, mostly R sided Continue IV abx IR recommending a 72 hour hold on eliquis prior to entertaining drain placement, ordered for this wednesday. keep NPO for midnight If patient has signs of clinical deterioration prior to this she will need to be transferred to tertiary center given complex oncologic case versus goals of care discussion Admission and Anticipated Discharge Date Admission Date: May 22, 2025 Supervising Physician Co-Signing Physician Notes I have seen and examined this patient this am. She continues to admit to pain. Seems more confused this am. Awaiting IR drainage. Subjective patient reports + abdominal pain. Physical Exam Physical Exam: awake Gastrointestinal (Abdomen): Inspection/Auscultation: + abdomen distended Percussion/Palpation: + abdomen tender (r sided abdomen ) Results & Data Vital Signs (Past 12 Hours) Vital Signs Temp Pulse Resp BP Pulse Ox O2 Del Method O2 Flow Rate 05/24/25 07:51 99.0 F 107 H 22 144/83 H 92 Nasal Cannula 2 05/24/25 02:21 98.1 F 106 H 14 130/66 94 Nasal Cannula 2 PG Care Time/CCT Total # of Minutes Spent Total Time Spent with Patient: Total time spent is greater than 50% in coordination of care (as documented) at patient's floor/unit and/or counseling patient: Coding Level of Care Code 14178 SUB INP/OBS CARE 12/02MIN Diagnoses Intra-abdominal abscess K65.1
[2025-05-24] MEDS: METHADONE HCL 5 MG TAB PO SCH (13:05)
--- NOTE | 2025-05-24 14:28 | Advance Care Plan Prog Note ---
Advanced Care Planning Note Date of Discussion May 24, 2025 ACP Discussion Diagnoses requiring ACP discussion: [end stage gastric cancer, necrotic abscess] A [id number] discussion with the patient/ regarding the patient's advanced care planning took place during this hospitalization on the above date. The discussion included the explanation and discussion of advance directives and associated forms/documents, as well as the patient's current code status. We also discussed at length the patient's medical conditions (both acute and chronic), general prognosis, treatment options, and goals of care. The following summarizes the discussion: Meeting began by introducing ourselves and our roles on the care team (patient, , doctor). able to give very good synopsis of her current medical conditions. I discussed the critical nature of her condition, including end stage gastric cancer, potential abscess causing severe sepsis vs. necrotic cancer on peritoneum. Discussed my discussion with Dr. Candelaria, her oncologist, in regards to her critical condition. Discussed what things bring her brissa, which includes being home with family, with her and pets. She is very scared of dying, and does not want to suffer. Discussed that unfortunately, given her ECOG of 3, poor nutritional status, uncontrolled pain, diffuse metastatic disease on peritoneum, her prognosis is likely on scale of weeks to months. Discussed that given her goals are to go home and not suffer, I recommended consideration of hospice services at time of discharge to improve quality of life and to minimize suffering. Patient and agree that this would be a good fit at discharge. agreeable to reviewing list of hospice agencies. Hospice explained and defined at length. Therefore, we will keep the current level of care, try to place drain tomorrow, and upon discharge will sign on with hospice services. 45 minute conversation. DPOA-HC/Surrogate Decision Maker -patient, Status Resuscitation Status DNR/DNI No Resuscitation Total Time I spent a total of 45 minutes was spent on this discussion, including counseling, answering questions, and completing, if any, pertinent advanced care planning forms/documents.
--- NOTE | 2025-05-24 14:33 | Hospitalist Progress Note ---
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 #Sepsis #Intra abdominal abscess --CT a/p: There is a large necrotic peritoneal mass in the right lower quadrant which appears contiguous with a large thick walled and peripherally enhancing collection. The collection extends from the right hemidiaphragm to the right lower quadrant, and the stability of this fluid cannot be assessed by imaging. A large abscess is not excluded. It is unclear if this large necrotic mass commun icates with the loops of adjacent bowel. -sepsis criteria 2/2 leukocytosis, tachycardia with evidence of likely intraabdominal abscess in setting of worsening abd pain Plan: -spoke to general surgery team who recommends IR Drainage, scheduled for tomorrow 05/25, NPO after midnight -hold anticoagulation at this time, SCDs only -continue broad spectrum abx at this time, f/u culture results -ok with transfer if ncessary -She is a DNR/DNI; however she would want vasopressor support in event she would require it #Metastatic Gastric Adenocarcinoma s/p neoadjuvant chemo, s/p gastrectomy/lymph node dissection 10/01 currently receiving paclitaxel #Metastasis to intrabdominal lymph nodes and peritoneal carcinomatosis #Worsening Hepatic Metastatic Disease #Large R transverse colon mass s/p bx + neuroendocrine origin ? new primary -Follows Dr. Candelaria locally -Had 2nd opinion at [facility] Dr. Alba -last tx 05/15, currently on Paclitaxel -Of note pt did not receive any recent GSF treatments --CT a/p There is postsurgical change from distal gastrectomy with gastrojejunostomy. No bowel obstruction is seen.2. Again seen is evidence of extensive intra-abdominal metastatic disease with lymphadenopathy, hepatic metastases, and peritoneal carcinomatosis. There has been a mixed response to treatment as compared to 05/22/2025, with overall decreased attenuation of the lesions. This likely represents at least some treatment response. -established with palliative care outpatient -given diffuse metastatic peritoneal disease, declining functional status ECOG 2 sliding to 3 at this time and sarcopenia, prognosis likely on scale of weeks to months -see advanced care planning note for details, will sign on with hospice at discharge Plan: -discussed with Dr. Candelaria who agrees with discussion of GOC -list of hospice agencies will be provided to hospice to engage hospice on discharge #Cancer Related Pain #Neuropathic Pain -patient has significant neuropathic and nociceptive pain throughout abdomen 2/2 diffuse peritoneal metastasis -improved with meds yesterday but still in quite a bit of pain -yesterday used: dilaudid 5mg PO x4, dilaudid 1mg IV x1, dilaudid 0.5 mg x1 Plan: -increased pain regiment as below: -stop fentanyl patch, start methadone 2.5mg tid--->160 MME yesterday, divided by 20, -continue 5mg PO dilaudid q3hr prn -continue breakthrough dilaudid 1.5mg q3hr prn -continue pregablin 50 tid -start 4mg decadron daily for capsular pain #Hx of DVT/R jugular thrombus 07/2024 -holding eliquis for now #Acute urinary retention -resolved I spent a total of 50 minutes in direct patient care, including [id number] time with the patient and/or family, reviewing medical records, ordering and reviewing diagnostic tests, and coordinating care with other healthcare providers. This time includes: history taking, physical examination, medical decision making, counseling, ECG interpretation, imaging interpretation, lab interpretation, orders, and education, excluding time spent in the performance of separately billed services. Admission and Anticipated Discharge Date Admission Date: May 22, 2025 Subjective Patient seen and examined at bedside. Patient doing better this morning, still have quite a bit of pain in between doses of medications. Advanced care planning note in chart, see note for details. Review of Systems Review of Systems: CONSTITUTIONAL: pain crisis, improving EYES: Patient denies any visual symptoms. EARS, NOSE, AND THROAT: No difficulties with hearing. No symptoms of rhinitis or sore throat. CARDIOVASCULAR: Patient denies chest pains, palpitations, orthopnea and paroxysmal nocturnal dyspnea. RESPIRATORY: No dyspnea on exertion, no wheezing or cough. GI: No nausea, vomiting, diarrhea, constipation, abdominal pain, hematochezia or melena. : No urinary hesitancy or dribbling. No nocturia or urinary frequency. No abnormal urethral discharge. MUSCULOSKELETAL: No myalgias or arthralgias. NEUROLOGIC: No chronic headaches, no seizures. Patient denies numbness, tingling or weakness. PSYCHIATRIC: Patient denies problems with mood disturbance. No problems with anxiety. ENDOCRINE: No excessive urination or excessive thirst. DERMATOLOGIC: Patient denies any rashes or skin changes. Physical Exam Physical Exam: Gen: A&O 3 NAD, sarcopenia noted HEENT: NCAT, EOMI, not icteric. External ears normal. No rhinorrhea. Moist mucous membranes. Neck: Supple, full range of motion, no observable masses, No meningeal sign. Lungs: No Respiratory distress. CV: tachcyardic, regular rhythm Abdomen: diffuse abdominal pain and tenderness to palpation, improved MSK: No joint swelling, no redness. Skin: No rashes, petechiae, lesions. Normal color per patient. Neuro: Normal Gait, Grossly intact. Psych: Appropriate for situation. Results & Data Results & Data Vital Signs (Past 12 Hours) Vital Signs Temp Pulse Resp BP Pulse Ox O2 Del Method O2 Flow Rate 05/24/25 11:31 36.8 C 101 H 20 123/71 93 Nasal Cannula 2 05/24/25 07:51 37.2 C 107 H 22 144/83 H 92 Nasal Cannula 2 Laboratory Results -personally reviewed, downtrending leukocytosis, Hgb stable, calcium replenished Medications Administered Hydromorphone HCl (Hydromorphone Inj 2 Mg/Ml Syr/Vial) 1.5 mg IV Q3H PRN PRN Reason: Breakthrough Pain Stop: 06/06/25 11:06 Last Admin: 05/24/25 08:41 Dose: 1.5 mg Documented By: ES Hydromorphone HCl (Hydromorphone Hcl 2 Mg Tab) 5 mg PO Q3HWA PRN PRN Reason: Severe Pain (Scale 7, 8, 9,10) Stop: 06/06/25 11:07 Last Admin: 05/24/25 13:02 Dose: 5 mg Documented By: Admin: 05/24/25 06:53 Dose: 5 mg Documented By: Admin: 05/23/25 22:49 Dose: 5 mg Documented By: Admin: 05/23/25 17:35 Dose: 5 mg Documented By: Admin: 05/23/25 11:13 Dose: 5 mg Documented By: PK Piperacillin Sod/Tazobactam Sod (Zosyn) 4.5 gm in 100 mls @ 25 mls/hr IV Q8H MICHAELLE; Protocol Stop: 06/01/25 17:59 Last Infusion: 05/24/25 12:07 Dose: Infused Documented By: Admin: 05/24/25 08:48 Dose: 25 mls/hr Documented By: Infusion: 05/24/25 05:51 Dose: Infused Documented By: Admin: 05/24/25 01:51 Dose: 25 mls/hr Documented By: Infusion: 05/23/25 21:15 Dose: Infused Documented By: Admin: 05/23/25 17:35 Dose: 25 mls/hr Documented By: Infusion: 05/23/25 14:41 Dose: Infused Documented By: Admin: 05/23/25 10:12 Dose: 25 mls/hr Documented By: Infusion: 05/23/25 05:43 Dose: Infused Documented By: Admin: 05/23/25 01:49 Dose: 25 mls/hr Documented By: Infusion: 05/22/25 23:38 Dose: Infused Documented By: Admin: 05/22/25 19:38 Dose: 25 mls/hr Documented By: SHIRA Acetaminophen (Ofirmev) 1,000 mg in 100 mls @ 400 mls/hr IV Q8H PRN PRN Reason: Mild-Mod Pain (Scale 1-6) Stop: 05/26/25 18:09 Last Infusion: 05/23/25 18:30 Dose: Infused Documented By: Admin: 05/23/25 18:16 Dose: 400 mls/hr Documented By: GPF Vancomycin HCl (Vancomycin Hcl) 1,000 mg in 270 mls @ 200 mls/hr IV Q12H MICHAELLE Stop: 06/02/25 07:59 Last Infusion: 05/24/25 09:58 Dose: Infused Documented By: Admin: 05/24/25 08:41 Dose: 200 mls/hr Documented By: ES Methadone HCl (Methadone Hcl 5 Mg Tab) 2.5 mg PO TID MICHAELLE Stop: 06/07/25 13:59 Last Admin: 05/24/25 14:26 Dose: 2.5 mg Documented By: ES Pantoprazole Sodium (Pantoprazole 40 Mg Tab) 40 mg PO BID MICHAELLE Stop: 06/21/25 20:59 Last Admin: 05/24/25 08:42 Dose: 40 mg Documented By: Admin: 05/23/25 20:20 Dose: 40 mg Documented By: Admin: 05/23/25 08:10 Dose: 40 mg Documented By: Admin: 05/22/25 19:38 Dose: 40 mg Documented By: SHIRA Polyethylene Glycol (Polyethylene (Miralax) 17 Gm Pack) 17 gm PO DAILY MICHAELLE Stop: 06/22/25 08:59 Last Admin: 05/24/25 08:42 Dose: 17 gm Documented By: Admin: 05/23/25 08:10 Dose: 17 gm Documented By: PK Pregabalin (Pregabalin 50 Mg Cap) 50 mg PO TID MICHAELLE Stop: 06/22/25 20:59 Last Admin: 05/24/25 13:02 Dose: 50 mg Documented By: Admin: 05/24/25 08:42 Dose: 50 mg Documented By: Admin: 05/23/25 20:20 Dose: 50 mg Documented By: SHIRA
[2025-05-25 07:10] LABS: Hematocrit (blood only) 24.8 % (37.0-47.0); Hemoglobin 7.8 g/dl (12.0-16.0); Mean Corpuscular Hemoglobin 28.0 pg (25.0-34.0); Mean Corpuscular Volume 88.9 fL (80.0-100.0); Platelet Count 272 K/uL (130-400); RDW Standard Deviation 47.7 fL (36.4-46.3); Red Blood Count 2.79 M/uL (4.20-5.40); White Blood Count 18.41 K/ul (4.8-10.8)
[2025-05-25 07:36] LABS: Alanine Aminotransferase 35.0 U/L (7-52); Albumin Globulin Ratio 0.7 (0.9-2); Alkaline Phosphatase 146.0 U/L (34-104); Anion Gap 7.0 (3-11); Bilirubin,Total 0.7 mg/dl (0.2-1.0); Blood Urea Nitrogen 11.0 mg/dl (6-23); Calcium 8.1 mg/dl (8.6-10.3); Carbon Dioxide 25.0 mmol/L (21-32); Chloride 105.0 mmol/L (98-107); Creatinine Clr Calc Pharmacy 92.1 ml/min; Globulin 3.7 gm/dl (2.5-4.0); Glucose 124.0 mg/dl (70-99(Fasting)); Magnesium 2.0 mg/dl (1.7-2.4); Potassium 4.3 mmol/L (3.5-5.1); Sodium 137.0 mmol/L (136-145); Total Protein 6.2 gm/dl (6.0-8.3)
[2025-05-25] MEDS: PREGABALIN 75 MG CAP PO SCH (08:46)
--- NOTE | 2025-05-25 09:25 | Surgery Progress Note ---
<Statement entered by Yvse Townsend, - 05/30/25 10:34> Pt seen and examined. I agree with the plan. Date of Service May 25, 2025 Assessment & Plan (1) Intra-abdominal abscess: Plan: pt w/ h/o gastric adenocarcinoma w/ metastatic disease here with findings of a large necrotic peritoneal mass in the rlq which appears contiguous with a large collection measuring 29 x 19 x 5.5 cm Today WBC 18, VSS, afebrile Ongoing pain and tenderness in abdomen, mostly R sided Continue IV abx, scheduled for IR drain today timing per radiology [facility] surgery covering weekend Admission and Anticipated Discharge Date Admission Date: May 22, 2025 Subjective Patient seen and examined at bedside, pain same as yesterday Review of Systems Gastrointestinal: + abdominal pain; no nausea and no vomit ing Physical Exam Constitutional: cooperative and + lethargic Respiratory: normal respiratory effort; no respiratory distress Cardiovascular: Rate/Rhythm: regular rate Gastrointestinal (Abdomen): Inspection/Auscultation: + abdomen distended Percussion/Palpation: + abdomen tender and + abdomen firm Results & Data Vital Signs (Past 12 Hours) Vital Signs Temp Pulse Pulse Resp BP Pulse Ox O2 Del Method 05/25/25 07:00 97.9 F 88 20 124/78 95 Nasal Cannula 05/25/25 03:20 97.7 F 75 17 118/78 94 Nasal Cannula 05/25/25 00:00 97.5 F L 86 18 114/73 95 Nasal Cannula 05/24/25 22:23 82 O2 Flow Rate 05/25/25 07:00 2.0 05/25/25 03:20 2 05/25/25 00:00 2 05/24/25 22:23 Results CBC w Diff Results: RBC 2.79 M/uL (4.20-5.40) L 05/25/25 WBC 18.41 K/ul (4.8-10.8) H 05/25/25 Hgb 7.8 g/dl (12.0-16.0) L 05/25/25 Hct 24.8 % (37.0-47.0) L 05/25/25 MCV 88.9 fL (80.0-100.0) 05/25/25 MCH 28.0 pg (25.0-34.0) 05/25/25 MCHC 31.5 g/dL (32.0-36.0) L 05/25/25 RDW Standard Deviation 47.7 fL (36.4-46.3) H 05/25/25 RDW Coefficient of Variation 14.9 % (11.5-14.5) H 05/25/25 Plt Count 272 K/uL (130-400) 05/25/25 MPV 9.8 fL (9.4-12.4) 05/25/25 Neutrophils (%) (Auto) 82.8 % 05/23/25 Lymphocytes (%) (Auto) 4.9 % 05/23/25 Monocytes # (Auto) 2.14 K/uL (0.11-0.59) H 05/23/25 Eosinophils # (Auto) 0.07 K/uL (0.00-0.50) 05/23/25 Immature Granulocyte % (Auto) 1.6 % 05/23/25 Neutrophils # (Auto) 17.44 K/uL (1.40-6.50) H 05/23/25 Lymphocytes # (Auto) 1.03 K/uL (1.20-3.40) L 05/23/25 Monocytes # (Auto) 2.14 K/uL (0.11-0.59) H 05/23/25 Eosinophils # (Auto) 0.07 K/uL (0.00-0.50) 05/23/25 Basophils # (Auto) 0.04 K/uL (0.00-0.20) 05/23/25 Immature Granulocyte # (Auto) 0.33 K/uL (0.01-0.20) H 05/23 Polychromasia 1+ 05/23/25 PG Care Time/CCT Total # of Minutes Spent Total Time Spent with Patient: Total time spent is greater than 50% in coordination of care (as documented) at patient's floor/unit and/or counseling patient: Coding Level of Care Code 88300 SUB INP/OBS CARE 12/02MIN Diagnoses Intra-abdominal abscess K65.1
--- NOTE | 2025-05-25 14:53 | Pharmacy Report ---
Pharmacy PK ABX Note - Date of Service May 25, 2025 - Assessment and Plan Assessment 05/25 * s/p IR drainage of intra-abdominal abscess today * Random vancomycin level obtained 05/25 at 1400 results at 19 mcg/mL with predicted AUC/JEREMY of 435 at steady state. This regimen should be sufficient, especially given potential source control with IR drainage. If Scr trends down further, may need to reassess dose. 05/24 * Random vancomycin level this morning resulted at 17 mcg/mL. Current AUC/JEREMY is within goal of 400-600, however current regimen is predicted to exceed 600 in the next 24 hours. Will reduce vancomycin dose. * Renal function is stable. IR guided drainage of possible abscess planned for tomorrow. 05/23 * Random vancomycin level this morning was 8.9mcg/mL. Renal function improved; SCr today =0.82 so started maintenance dose of vancomycin this morning. * Preliminary blood cultures are NGTD and MRSA nasal swab is negative. * Patient with continued leukocytosis and has been afebrile 05/22: * 59 year old F receiving pip/tazo and vancomcyin for treatment of possible lar ge GI abscess. 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 Current SCr elevated from baseline at 1.28 mg/dL - eCrCL <= 55 mL/min. Will dose vancomycin via level for now Plan Vancomycin * Continue 100mg IV q12 hours * Target AUC/JEREMY of 400-600 mg/L.hr * predicted steady state AUC/JEREMY = 435 Zosyn 4.5gm iv q 8 hours Pharmacy will continue to follow and will adjust dose/frequency as necessary. Thank you.
--- NOTE | 2025-05-25 15:12 | Hospitalist Progress Note ---
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 #Sepsis #Intra abdominal abscess --CT a/p: There is a large necrotic peritoneal mass in the right lower quadrant which appears contiguous with a large thick walled and peripherally enhancing collection. The collection extends from the right hemidiaphragm to the right lower quadrant, and the stability of this fluid cannot be assessed by imaging. A large abscess is not excluded. It is unclear if this large necrotic mass communi cates with the loops of adjacent bowel. -sepsis criteria 2/2 leukocytosis, tachycardia with evidence of likely intraabdominal abscess in setting of worsening abd pain -IR drain placed today Plan: -hold anticoagulation at this time, SCDs only -continue broad spectrum abx at this time, f/u culture results #Metastatic Gastric Adenocarcinoma s/p neoadjuvant chemo, s/p gastrectomy/lymph node dissection 10/01 currently receiving paclitaxel #Metastasis to intrabdominal lymph nodes and peritoneal carcinomatosis #Worsening Hepatic Metastatic Disease #Large R transverse colon mass s/p bx + neuroendocrine origin ? new primary -Follows Dr. Candelaria locally -Had 2nd opinion at [facility] Dr. Alba -last tx 05/15, currently on Paclitaxel -Of note pt did not receive any recent GSF treatments --CT a/p There is postsurgical change from distal gastrectomy with gastrojejunostomy. No bowel obstruction is seen.2. Again seen is evidence of extensive intra-abdominal metastatic disease with lymphadenopathy, hepatic metastases, and peritoneal carcinomatosis. There has been a mixed response to treatment as compared to 05/22/2025, with overall decreased attenuation of the lesions. This likely represents at least some treatment response. -established with palliative care outpatient -given diffuse metastatic peritoneal disease, declining functional status ECOG 2 sliding to 3 at this time and sarcopenia, prognosis likely on scale of weeks to months -see advanced care planning note for details, will sign on with hospice at discharge Plan: -discussed with Dr. Candelaria who agrees with discussion of GOC -list of hospice agencies has been provided to #Cancer Related Pain #Neuropathic Pain -patient has significant neuropathic and nociceptive pain throughout abdomen 2/2 diffuse peritoneal metastasis -improved with meds yesterday but still in quite a bit of pain -yesterday used: dilaudid 5mg PO x4, dilaudid 1mg IV x1, dilaudid 0.5 mg x1 Plan: -increased pain regiment as below: -continue methadone 2.5mg tid, started on 05/24/2025 -continue 5mg PO dilaudid q3hr prn -continue breakthrough dilaudid 1.5mg q3hr prn -increase pregablin to 75tid -continue 4mg decadron daily for capsular pain #Hx of DVT/R jugular thrombus 07/2024 -holding eliquis for now #Acute urinary retention -resolved I spent a total of 50 minutes in direct patient care, including [id number] time with the patient and/or family, reviewing medical records, ordering and reviewing diagnostic tests, and coordinating care with other healthcare providers. This time includes: history taking, physical examination, medical decision making, counseling, ECG interpretation, imaging interpretation, lab interpretation, orders, and education, excluding time spent in the performance of separately billed services. Admission and Anticipated Discharge Date Admission Date: May 22, 2025 Subjective Patient seen and examined at bedside. Patient pain improving but still significant. Looking forward to drain placement today. at bedside. Review of Systems Review of Systems: CONSTITUTIONAL: pain crisis, improving EYES: Patient denies any visual symptoms. EARS, NOSE, AND THROAT: No difficulties with hearing. No symptoms of rhinitis or sore throat. CARDIOVASCULAR: Patient denies chest pains, palpitations, orthopnea and paroxysmal nocturnal dyspnea. RESPIRATORY: No dyspnea on exertion, no wheezing or cough. GI: No nausea, vomiting, diarrhea, constipation, abdominal pain, hematochezia or melena. : No urinary hesitancy or dribbling. No nocturia or urinary frequency. No abnormal urethral discharge. MUSCULOSKELETAL: No myalgias or arthralgias. NEUROLOGIC: No chronic headaches, no seizures. Patient denies numbness, tingling or weakness. PSYCHIATRIC: Patient denies problems with mood disturbance. No problems with anxiety. ENDOCRINE: No excessive urination or excessive thirst. DERMATOLOGIC: Patient denies any rashes or skin changes. Physical Exam Physical Exam: Gen: A&O 3 NAD, sarcopenia noted HEENT: NCAT, EOMI, not icteric. External ears normal. No rhinorrhea. Moist mucous membranes. Neck: Supple, full range of motion, no observable masses, No meningeal sign. Lungs: No Respiratory distress. CV: tachcyardic, regular rhythm Abdomen: diffuse abdominal pain and tenderness to palpation, improved, worst in RMQ MSK: No joint swelling, no redness. Skin: No rashes, petechiae, lesions. Normal color per patient. Neuro: Normal Gait, Grossly intact. Psych: Appropriate for situation. Results & Data Results & Data Vital Signs (Past 12 Hours) Vital Signs Temp Pulse Resp BP BP Pulse Ox O2 Del Method 05/25/25 14:00 89 113/66 94 Nasal Cannula 05/25/25 13:00 87 121/77 96 Nasal Cannula 05/25/25 13:00 83 121/79 95 Nasal Cannula 05/25/25 12:45 87 118/75 05/25/25 12:30 86 125/82 95 Nasal Cannula 05/25/25 12:15 82 118/70 96 Nasal Cannula 05/25/25 12:04 Nasal Cannula 05/25/25 08:00 Nasal Cannula 05/25/25 07:00 36.6 C 88 20 124/78 95 Nasal Cannula 05/25/25 03:20 36.5 C 75 17 118/78 94 Nasal Cannula O2 Flow Rate 05/25/25 14:00 2 05/25/25 13:00 2 05/25/25 13:00 2 05/25/25 12:45 05/25/25 12:30 2 05/25/25 12:15 2 05/25/25 12:04 2 05/25/25 08:00 2 05/25/25 07:00 2.0 05/25/25 03:20 2 Laboratory Results -personally reviewed, downtrending leukocytosis, Hgb stable Medications Administered Dexamethasone (Dexamethasone 4 Mg Tab) 4 mg PO DAILY MICHAELLE Stop: 06/23/25 14:49 Last Admin: 05/25/25 08:46 Dose: 4 mg Documented By: Admin: 05/24/25 16:50 Dose: 4 mg Documented By: ES Hydromorphone HCl (Hydromorphone Inj 2 Mg/Ml Syr/Vial) 1.5 mg IV Q3H PRN PRN Reason: Breakthrough Pain Stop: 06/06/25 11:06 Last Admin: 05/25/25 06:33 Dose: 1.5 mg Documented By: Admin: 05/24/25 16:50 Dose: 1.5 mg Documented By: Admin: 05/24/25 08:41 Dose: 1.5 mg Documented By: ES Hydromorphone HCl (Hydromorphone Hcl 2 Mg Tab) 5 mg PO Q3HWA PRN PRN Reason: Severe Pain (Scale 7, 8, 9,10) Stop: 06/06/25 11:07 Last Admin: 05/25/25 14:44 Dose: 5 mg Documented By: Admin: 05/25/25 14:37 Dose: 5 mg Documented By: Admin: 05/25/25 04:43 Dose: 5 mg Documented By: SJValerio Admin: 05/24/25 21:36 Dose: 5 mg Documented By: Admin: 05/24/25 13:02 Dose: 5 mg Documented By: Admin: 05/24/25 06:53 Dose: 5 mg Documented By: Admin: 05/23/25 22:49 Dose: 5 mg Documented By: Admin: 05/23/25 17:35 Dose: 5 mg Documented By: Admin: 05/23/25 11:13 Dose: 5 mg Documented By: PK Piperacillin Sod/Tazobactam Sod (Zosyn) 4.5 gm in 100 mls @ 25 mls/hr IV Q8H MICHAELLE; Protocol Stop: 06/01/25 17:59 Last Admin: 05/25/25 12:11 Dose: 25 mls/hr Documented By: Infusion: 05/25/25 08:35 Dose: Infused Documented By: Admin: 05/25/25 04:39 Dose: 25 mls/hr Documented By: SJValerio Infusion: 05/24/25 21:29 Dose: Infused Documented By: Admin: 05/24/25 16:54 Dose: 25 mls/hr Documented By: Infusion: 05/24/25 12:07 Dose: Infused Documented By: Admin: 05/24/25 08:48 Dose: 25 mls/hr Documented By: Infusion: 05/24/25 05:51 Dose: Infused Documented By: Admin: 05/24/25 01:51 Dose: 25 mls/hr Documented By: Infusion: 05/23/25 21:15 Dose: Infused Documented By: Admin: 05/23/25 17:35 Dose: 25 mls/hr Documented By: Infusion: 05/23/25 14:41 Dose: Infused Documented By: Admin: 05/23/25 10:12 Dose: 25 mls/hr Documented By: Infusion: 05/23/25 05:43 Dose: Infused Documented By: Admin: 05/23/25 01:49 Dose: 25 mls/hr Documented By: Infusion: 05/22/25 23:38 Dose: Infused Documented By: Admin: 05/22/25 19:38 Dose: 25 mls/hr Documented By: SHIRA Acetaminophen (Ofirmev) 1,000 mg in 100 mls @ 400 mls/hr IV Q8H PRN PRN Reason: Mild-Mod Pain (Scale 1-6) Stop: 05/26/25 18:09 Last Infusion: 05/23/25 18:30 Dose: Infused Documented By: Admin: 05/23/25 18:16 Dose: 400 mls/hr Documented By: GPF Vancomycin HCl (Vancomycin Hcl) 1,000 mg in 270 mls @ 200 mls/hr IV Q12H MICHAELLE Stop: 06/02/25 07:59 Last Infusion: 05/25/25 10:26 Dose: Infused Documented By: Admin: 05/25/25 08:50 Dose: 200 mls/hr Documented By: Infusion: 05/24/25 22:44 Dose: Infused Documented By: Admin: 05/24/25 21:23 Dose: 200 mls/hr Documented By: Infusion: 05/24/25 09:58 Dose: Infused Documented By: Admin: 05/24/25 08:41 Dose: 200 mls/hr Documented By: ES Methadone HCl (Methadone Hcl 5 Mg Tab) 2.5 mg PO TID MICHAELLE Stop: 06/07/25 13:59 Last Admin: 05/25/25 14:42 Dose: Not Given Documented By: Admin: 05/25/25 08:45 Dose: 2.5 mg Documented By: Admin: 05/24/25 21:34 Dose: 2.5 mg Documented By: SJValerio Admin: 05/24/25 14:26 Dose: 2.5 mg Documented By: OSMANI Pantoprazole Sodium (Pantoprazole 40 Mg Tab) 40 mg PO BID MICHAELLE Stop: 06/21/25 20:59 Last Admin: 05/25/25 08:45 Dose: 40 mg Documented By: Admin: 05/24/25 21:34 Dose: 40 mg Documented By: Admin: 05/24/25 08:42 Dose: 40 mg Documented By: Admin: 05/23/25 20:20 Dose: 40 mg Documented By: Admin: 05/23/25 08:10 Dose: 40 mg Documented By: Admin: 05/22/25 19:38 Dose: 40 mg Documented By: SHIRA Polyethylene Glycol (Polyethylene (Miralax) 17 Gm Pack) 17 gm PO DAILY MICHAELLE Stop: 06/22/25 08:59 Last Admin: 05/25/25 08:46 Dose: Not Given Documented By: Admin: 05/24/25 08:42 Dose: 17 gm Documented By: Admin: 05/23/25 08:10 Dose: 17 gm Documented By: PK Pregabalin (Pregabalin 75 Mg Cap) 75 mg PO TID MICHAELLE Stop: 06/24/25 08:59 Last Admin: 05/25/25 14:36 Dose: 75 mg Documented By: Admin: 05/25/25 08:46 Dose: 75 mg Documented By: GPF
--- NOTE | 2025-05-25 15:27 | CT Scan Report ---
IR AD CT periton/retro w/gdnce CLINICAL HISTORY: abscess COMPARISON STUDY: 05/22/2025 MEDICATIONS: 100 mcg fentanyl was administered IV with a conscious sedation trained nurse. There was continuous monitoring for the 30 minute procedure. Technique: After the procedure was discussed and questions answered, consent was obtained. Patient wa s positioned supine on the CT gantry and timeout was performed. Preprocedure CT scan again demonstrat ed findings consistent with abdominal malignancy with right lower quadrant fluid collection. The right lower quadrant of the abdomen was prepped and draped in standard sterile fashion. 1% lidoca ine was used for local anesthesia. Under intermittent CT guidance, a 5 [place]uvian needle and catheter set was advanced from an anterior lateral approach into the fluid. Inner needle was removed. Fluid appea red spontaneously at the catheter hub. Amplatz wire was advanced into the fluid collection. Initial c atheter was exchanged over the wire for an 8 [place]uvian all-purpose drain. The pigtail was formed in the right lower quadrant fluid collection. Final CT scans demonstrated good position of the catheter. The catheter was secured at the skin with suture and sterile dressing was applied. Catheter was conne cted to accordion bag drainage and serosanguinous fluid was draining at procedure completion. Radiation dose: 1396 mGy cm. IMPRESSION: Right lower quadrant drain placement with CT guidance. ACT 112: Negative or not required by law. Electronically signed by: Juwan Del Castillo M.D. 05/25/2025 3:26 PM
[2025-05-26] MEDS: MELATONIN 3 MG TAB PO PRN (00:28)
[2025-05-26 06:31] LABS: Hematocrit (blood only) 23.9 % (37.0-47.0); Hemoglobin 8.0 g/dl (12.0-16.0); Mean Corpuscular Hemoglobin 28.8 pg (25.0-34.0); Mean Corpuscular Volume 86.0 fL (80.0-100.0); Platelet Count 288 K/uL (130-400); RDW Standard Deviation 44.8 fL (36.4-46.3); Red Blood Count 2.78 M/uL (4.20-5.40); White Blood Count 14.77 K/ul (4.8-10.8)
[2025-05-26 07:00] LABS: Alanine Aminotransferase 26.0 U/L (7-52); Albumin Globulin Ratio 0.7 (0.9-2); Alkaline Phosphatase 126.0 U/L (34-104); Anion Gap 8.0 (3-11); Bilirubin,Total 0.6 mg/dl (0.2-1.0); Blood Urea Nitrogen 14.0 mg/dl (6-23); Calcium 8.0 mg/dl (8.6-10.3); Carbon Dioxide 25.0 mmol/L (21-32); Chloride 106.0 mmol/L (98-107); Creatinine Clr Calc Pharmacy 93.3 ml/min; Globulin 3.7 gm/dl (2.5-4.0); Glucose 130.0 mg/dl (70-99(Fasting)); Magnesium 1.9 mg/dl (1.7-2.4); Potassium 4.0 mmol/L (3.5-5.1); Sodium 139.0 mmol/L (136-145); Total Protein 6.2 gm/dl (6.0-8.3)
[2025-05-26] MEDS: OPTIRAY 320 100ml IV ONE (09:14)
[2025-05-26] MEDS: CALCIUM GLUCONATE 1,000 MG/60 ML BAG IV STA (09:26)
--- NOTE | 2025-05-26 09:57 | CT Scan Report ---
Clinical History: Assess drain placement. Gastric cancer Technique: Axial computed tomography images were obtained of the abdomen and pelvis after the administration of intravenous contrast. Comparison is made to the prior CT dated 05/22/2025 Findings: The liver is overall of normal size, attenuation, and contour with no sign of cirrhosis or significant fatty infiltration. There is an unchanged 1.4 cm low-attenuation mass in the left hepatic lobe. There is a 1.6 cm low-attenuation lesion in the medial right hepatic lobe. The portal vein is patent. There are apparent gallstones. There is no definite sign of acute cholecystitis. No bile duct dilatation is noted. The spleen is at the upper limit of normal in size, measuring 13 cm. No focal splenic lesion is evident. The pancreas appears normal with no sign of acute or chronic pancreatitis and no mass lesion noted. The pancreatic duct is of normal caliber. The adrenal glands appear unremarkable. No definite renal or proximal ureteral calculi are seen on this contrast-enhanced study. There is no hydronephrosis or perinephric stranding. No renal mass lesion is identified. There is a 9 mm left renal cyst. The aorta is of normal caliber. Again seen is extensive gastrohepatic ligament, mitul hepatis, peripancreatic, and para-aortic adenopathy, consistent with metastatic disease. Postsurgical changes are again seen of distal gastrectomy with suspected gastrojejunostomy. There is no sign of small bowel obstruction. The colon appears unremarkable. There is a small amount of ascites. There is a new percutaneous drainage catheter within a complex fluid collection in the right midabdomen peritoneal cavity. There is irregular rim enhancement of this collection. It is difficult to measure as it appears contiguous with adjacent ascites, but measures approximately 8.5 x 5.2 cm. No free intraperitoneal air is identified. No distal ureteral or bladder calculi are seen. The bladder is decompressed, containing a [place] catheter. The iliac arteries are of normal caliber. No pelvic adenopathy is noted. There is a 2.8 cm right ovarian cyst. There is a new small to moderate right pleural effusion and there is an increased minimal left pleural effusion. There is near complete collapse of the right lower lobe. Mild thoracolumbar degenerative disc disease is seen. No fracture is identified. No focal osseous lesion is seen Impression: 1. New percutaneous drainage catheter within a complex fluid collection in the right midabdomen peritoneal cavity. This could represent loculated malignant ascites or a necrotic metastasis. An abscess is also possible 2. No definite change in extensive abdominal adenopathy, consistent with metastatic disease 3. Unchanged small liver masses, likely due to metastatic disease 4. Unchanged small amount of ascites 5. Increased bilateral pleural effusions and new near complete collapse of the right lower lobe 6. Cholelithiasis without definite acute cholecystitis 7. Right ovarian cyst, likely a benign functional cyst ACT 112: Positive. There are findings on this exam that require communication between the performing entity and the patient following Patient Test Result Information Act ([place] ACT 112) guidelines. Electronically signed by Geovanny Bonilla 05-26-2025 09:57 AM
--- NOTE | 2025-05-26 11:12 | Surgery Progress Note ---
Date of Service May 26, 2025 Assessment & Plan (1) Gastric adenocarcinoma: Plan: drain in place WBC down con't IV abx no surgical issues plan per medical team Admission and Anticipated Discharge Date Admission Date: May 22, 2025 Subjective still with some pain, Rx per medical team drain in place with bloody drainage WBC down to 14 AF Review of Systems Constitutional: no fever and no chills Respiratory: no dyspnea Cardiovascular: no chest pain Gastrointestinal: + abdominal pain Neurologic: + generalized weakness Psychiatric: no behavioral changes Physical Exam Constitutional: WD/WN, vitals as above Eyes: no scleral abnormality Neck: trachea midline Respiratory: normal respiratory effort Cardiovascular: Rate/Rhythm: regular rate and regular rhythm Gastrointestinal (Abdomen): Inspection/Auscultation: + abdomen distended Percussion/Palpation: + abdomen tender and abdomen soft; no guarding Musculoskeletal: Head/Neck/Chest: normocephalic Skin: no rashes, warm and dry Results & Data Vital Signs (Past 12 Hours) Vital Signs Temp Pulse Pulse Resp BP BP Pulse Ox 05/26/25 11:05 36.4 C L 73 23 118/75 97 05/26/25 07:38 36.7 C 83 22 135/83 96 05/26/25 07:01 81 05/26/25 03:12 36.7 C 70 16 133/89 94 05/26/25 00:07 95 H 05/25/25 23:12 36.5 C 84 17 141/85 H 96 O2 Del Method O2 Flow Rate 05/26/25 11:05 Nasal Cannula 05/26/25 07:38 Nasal Cannula 2 05/26/25 07:01 05/26/25 03:12 Nasal Cannula 2 05/26/25 00:07 05/25/25 23:12 Nasal Cannula 2
--- NOTE | 2025-05-26 14:05 | Hospitalist Progress Note ---
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 #Sepsis #Intra abdominal abscess --CT a/p: There is a large necrotic peritoneal mass in the right lower quadrant which appears contiguous with a large thick walled and peripherally enhancing collection. The collection extends from the right hemidiaphragm to the right lower quadrant, and the stability of this fluid cannot be assessed by imaging. A large abscess is not excluded. It is unclear if this large necrotic mass communi cates with the loops of adjacent bowel. -sepsis criteria 2/2 leukocytosis, tachycardia with evidence of likely intraabdominal abscess in setting of worsening abd pain -IR drain placed on 05/25/2025, draining bloody like drainage Plan: -hold anticoagulation at this time, SCDs only -continue broad spectrum abx at this time, will do 7 day course (02/12) #Metastatic Gastric Adenocarcinoma s/p neoadjuvant chemo, s/p gastrectomy/lymph node dissection 10/01 currently receiving paclitaxel #Metastasis to intrabdominal lymph nodes and peritoneal carcinomatosis #Worsening Hepatic Metastatic Disease #Large R transverse colon mass s/p bx + neuroendocrine origin ? new primary -Follows Dr. Candelaria locally -Had 2nd opinion at [facility] Dr. Alba -last tx 05/15, currently on Paclitaxel -Of note pt did not receive any recent GSF treatments --CT a/p There is postsurgical change from distal gastrectomy with gastrojejunostomy. No bowel obstruction is seen.2. Again seen is evidence of extensive intra-abdominal metastatic disease with lymphadenopathy, hepatic metastases, and peritoneal carcinomatosis. There has been a mixed response to treatment as compared to 05/22/2025, with overall decreased attenuation of the lesions. This likely represents at least some treatment response. -established with palliative care outpatient -given diffuse metastatic peritoneal disease, declining functional status ECOG 2 sliding to 3 at this time and sarcopenia, prognosis likely on scale of weeks to months -see advanced care planning note for details, will sign on with hospice at discharge Plan: -discussed with Dr. Candelaria who agrees with discussion of GOC -list of hospice agencies has been provided to #Cancer Related Pain #Neuropathic Pain -patient has significant neuropathic and nociceptive pain throughout abdomen 2/2 diffuse peritoneal metastasis -improved with meds yesterday but still in quite a bit of pain -yesterday used: dilaudid 5mg PO x4, dilaudid 1mg IV x1, dilaudid 0.5 mg x1 Plan: -increased pain regiment as below: -continue methadone 2.5mg tid, started on 05/24/2025 -continue 5mg PO dilaudid q3hr prn -continue breakthrough dilaudid 1.5mg q3hr prn -increase pregablin to 100 tid -continue 4mg decadron daily for capsular pain #Hx of DVT/R jugular thrombus 07/2024 -holding eliquis for now #Acute urinary retention -resolved I spent a total of 50 minutes in direct patient care, including [id number] time with the patient and/or family, reviewing medical records, ordering and reviewing diagnostic tests, and coordinating care with other healthcare providers. This time includes: history taking, physical examination, medical decision making, counseling, ECG interpretation, imaging interpretation, lab interpretation, orders, and education, excluding time spent in the performance of separately billed services. Admission and Anticipated Discharge Date Admission Date: May 22, 2025 Subjective Patient seen and examined at bedside. Patient much more comfortable today. Drain placed yesterday draining dark red fluid. Review of Systems Review of Systems: CONSTITUTIONAL: comfortable, intermittantly confused EYES: Patient denies any visual symptoms. EARS, NOSE, AND THROAT: No difficulties with hearing. No symptoms of rhinitis or sore throat. CARDIOVASCULAR: Patient denies chest pains, palpitations, orthopnea and paroxysmal nocturnal dyspnea. RESPIRATORY: No dyspnea on exertion, no wheezing or cough. GI: No nausea, vomiting, diarrhea, constipation, abdominal pain, hematochezia or melena. : No urinary hesitancy or dribbling. No nocturia or urinary frequency. No abnormal urethral discharge. MUSCULOSKELETAL: No myalgias or arthralgias. NEUROLOGIC: No chronic headaches, no seizures. Patient denies numbness, tingling or weakness. PSYCHIATRIC: Patient denies problems with mood disturbance. No problems with anxiety. ENDOCRINE: No excessive urination or excessive thirst. DERMATOLOGIC: Patient denies any rashes or skin changes. Physical Exam Physical Exam: Gen: A&O 2-3 NAD, sarcopenia noted HEENT: NCAT, EOMI, not icteric. External ears normal. No rhinorrhea. Moist mucous membranes. Neck: Supple, full range of motion, no observable masses, No meningeal sign. Lungs: No Respiratory distress. CV: RRR Abdomen: diffuse abdominal pain and tenderness to palpation, improved, worst in RMQ MSK: No joint swelling, no redness. Drain placed, wound site appears stable Skin: No rashes, petechiae, lesions. Normal color per patient. Neuro: Normal Gait, Grossly intact. Psych: Appropriate for situation. Results & Data Results & Data Vital Signs (Past 12 Hours) Vital Signs Temp Pulse Pulse Resp BP BP Pulse Ox 05/26/25 11:05 36.4 C L 73 23 118/75 97 05/26/25 08:30 05/26/25 07:38 36.7 C 83 22 135/83 96 05/26/25 07:01 81 05/26/25 03:12 36.7 C 70 16 133/89 94 O2 Del Method O2 Flow Rate 05/26/25 11:05 Nasal Cannula 05/26/25 08:30 Nasal Cannula 2 05/26/25 07:38 Nasal Cannula 2 05/26/25 07:01 05/26/25 03:12 Nasal Cannula 2 Laboratory Results -personally reviewed, downtrending leukocytosis, calcium 8 replenished Medications Administered Dexamethasone (Dexamethasone 4 Mg Tab) 4 mg PO DAILY [facility] Stop: 06/23/25 14:49 Last Admin: 05/26/25 08:53 Dose: 4 mg Documented By: Admin: 05/25/25 08:46 Dose: 4 mg Documented By: Admin: 05/24/25 16:50 Dose: 4 mg Documented By: OSMANI Hydromorphone HCl (Hydromorphone Inj 2 Mg/Ml Syr/Vial) 1.5 mg IV Q3H PRN PRN Reason: Breakthrough Pain Stop: 06/06/25 11:06 Last Admin: 05/26/25 08:52 Dose: 1.5 mg Documented By: Admin: 05/25/25 06:33 Dose: 1.5 mg Documented By: Admin: 05/24/25 16:50 Dose: 1.5 mg Documented By: Admin: 05/24/25 08:41 Dose: 1.5 mg Documented By: ES Hydromorphone HCl (Hydromorphone Hcl 2 Mg Tab) 5 mg PO Q3HWA PRN PRN Reason: Severe Pain (Scale 7, 8, 9,10) Stop: 06/06/25 11:07 Last Admin: 05/26/25 06:04 Dose: 5 mg Documented By: Admin: 05/26/25 00:28 Dose: 5 mg Documented By: Admin: 05/25/25 14:44 Dose: 5 mg Documented By: Admin: 05/25/25 14:37 Dose: 5 mg Documented By: Admin: 05/25/25 04:43 Dose: 5 mg Documented By: Admin: 05/24/25 21:36 Dose: 5 mg Documented By: Admin: 05/24/25 13:02 Dose: 5 mg Documented By: Admin: 05/24/25 06:53 Dose: 5 mg Documented By: Admin: 05/23/25 22:49 Dose: 5 mg Documented By: Admin: 05/23/25 17:35 Dose: 5 mg Documented By: Admin: 05/23/25 11:13 Dose: 5 mg Documented By: PK Piperacillin Sod/Tazobactam Sod (Zosyn) 4.5 gm in 100 mls @ 25 mls/hr IV Q8H MICHAELLE; Protocol Stop: 06/01/25 17:59 Last Admin: 05/26/25 10:31 Dose: 25 mls/hr Documented By: Infusion: 05/26/25 05:30 Dose: Infused Documented By: Admin: 05/26/25 01:26 Dose: 25 mls/hr Documented By: Infusion: 05/25/25 20:53 Dose: Infused Documented By: Admin: 05/25/25 17:08 Dose: 25 mls/hr Documented By: Infusion: 05/25/25 15:54 Dose: Infused Documented By: Admin: 05/25/25 12:11 Dose: 25 mls/hr Documented By: Infusion: 05/25/25 08:35 Dose: Infused Documented By: Admin: 05/25/25 04:39 Dose: 25 mls/hr Documented By: Infusion: 05/24/25 21:29 Dose: Infused Documented By: Admin: 05/24/25 16:54 Dose: 25 mls/hr Documented By: Infusion: 05/24/25 12:07 Dose: Infused Documented By: Admin: 05/24/25 08:48 Dose: 25 mls/hr Documented By: Infusion: 05/24/25 05:51 Dose: Infused Documented By: Admin: 05/24/25 01:51 Dose: 25 mls/hr Documented By: Infusion: 05/23/25 21:15 Dose: Infused Documented By: Admin: 05/23/25 17:35 Dose: 25 mls/hr Documented By: Infusion: 05/23/25 14:41 Dose: Infused Documented By: Admin: 05/23/25 10:12 Dose: 25 mls/hr Documented By: Infusion: 05/23/25 05:43 Dose: Infused Documented By: Admin: 05/23/25 01:49 Dose: 25 mls/hr Documented By: Infusion: 05/22/25 23:38 Dose: Infused Documented By: Admin: 05/22/25 19:38 Dose: 25 mls/hr Documented By: SHIRA Acetaminophen (Ofirmev) 1,000 mg in 100 mls @ 400 mls/hr IV Q8H PRN PRN Reason: Mild-Mod Pain (Scale 1-6) Stop: 05/26/25 18:09 Last Infusion: 05/23/25 18:30 Dose: Infused Documented By: Admin: 05/23/25 18:16 Dose: 400 mls/hr Documented By: GPF Vancomycin HCl (Vancomycin Hcl) 1,000 mg in 270 mls @ 200 mls/hr IV Q12H MICHAELLE Stop: 06/02/25 07:59 Last Infusion: 05/26/25 10:21 Dose: Infused Documented By: Admin: 05/26/25 08:52 Dose: 200 mls/hr Documented By: Infusion: 05/25/25 22:08 Dose: Infused Documented By: Admin: 05/25/25 20:17 Dose: 200 mls/hr Documented By: Infusion: 05/25/25 10:26 Dose: Infused Documented By: Admin: 05/25/25 08:50 Dose: 200 mls/hr Documented By: Infusion: 05/24/25 22:44 Dose: Infused Documented By: Admin: 05/24/25 21:23 Dose: 200 mls/hr Documented By: Infusion: 05/24/25 09:58 Dose: Infused Documented By: Admin: 05/24/25 08:41 Dose: 200 mls/hr Documented By: ES Melatonin (Melatonin 3 Mg Tab) 3 mg PO HS PRN PRN Reason: Sleep Stop: 06/21/25 20:59 Last Admin: 05/26/25 00:28 Dose: 3 mg Documented By: JANE Methadone HCl (Methadone Hcl 5 Mg Tab) 2.5 mg PO TID MICHAELLE Stop: 06/07/25 13:59 Last Admin: 05/26/25 08:52 Dose: 2.5 mg Documented By: Admin: 05/25/25 20:28 Dose: 2.5 mg Documented By: Admin: 05/25/25 14:42 Dose: Not Given Documented By: Admin: 05/25/25 08:45 Dose: 2.5 mg Documented By: Admin: 05/24/25 21:34 Dose: 2.5 mg Documented By: Admin: 05/24/25 14:26 Dose: 2.5 mg Documented By: OSMANI Pantoprazole Sodium (Pantoprazole 40 Mg Tab) 40 mg PO BID MICHAELLE Stop: 06/21/25 20:59 Last Admin: 05/26/25 08:53 Dose: 40 mg Documented By: Admin: 05/25/25 20:22 Dose: 40 mg Documented By: Admin: 05/25/25 08:45 Dose: 40 mg Documented By: Admin: 05/24/25 21:34 Dose: 40 mg Documented By: Admin: 05/24/25 08:42 Dose: 40 mg Documented By: Admin: 05/23/25 20:20 Dose: 40 mg Documented By: Admin: 05/23/25 08:10 Dose: 40 mg Documented By: Admin: 05/22/25 19:38 Dose: 40 mg Documented By: SHIRA Polyethylene Glycol (Polyethylene (Miralax) 17 Gm Pack) 17 gm PO DAILY MICHAELLE Stop: 06/22/25 08:59 Last Admin: 05/26/25 09:26 Dose: 17 gm Documented By: Admin: 05/25/25 08:46 Dose: Not Given Documented By: Admin: 05/24/25 08:42 Dose: 17 gm Documented By: Admin: 05/23/25 08:10 Dose: 17 gm Documented By: PK Pregabalin (Pregabalin 75 Mg Cap) 75 mg PO TID MICHAELLE Stop: 06/24/25 08:59 Last Admin: 05/26/25 08:52 Dose: 75 mg Documented By: Admin: 05/25/25 20:31 Dose: 75 mg Documented By: Admin: 05/25/25 14:36 Dose: 75 mg Documented By: Admin: 05/25/25 08:46 Dose: 75 mg Documented By: GPF
[2025-05-26] MEDS: PREGABALIN 100 MG CAP PO SCH (20:16)
[2025-05-27 07:18] LABS: Hematocrit (blood only) 24.3 % (37.0-47.0); Hemoglobin 7.6 g/dl (12.0-16.0); Mean Corpuscular Hemoglobin 27.6 pg (25.0-34.0); Mean Corpuscular Volume 88.4 fL (80.0-100.0); Platelet Count 259 K/uL (130-400); RDW Standard Deviation 48.5 fL (36.4-46.3); Red Blood Count 2.75 M/uL (4.20-5.40); White Blood Count 13.09 K/ul (4.8-10.8)
[2025-05-27 07:51] LABS: Alanine Aminotransferase 23.0 U/L (7-52); Albumin Globulin Ratio 0.7 (0.9-2); Alkaline Phosphatase 118.0 U/L (34-104); Anion Gap 5.0 (3-11); Bilirubin,Total 0.5 mg/dl (0.2-1.0); Blood Urea Nitrogen 17.0 mg/dl (6-23); Calcium 7.9 mg/dl (8.6-10.3); Carbon Dioxide 28.0 mmol/L (21-32); Chloride 107.0 mmol/L (98-107); Creatinine Clr Calc Pharmacy 86.3 ml/min; Globulin 3.6 gm/dl (2.5-4.0); Glucose 106.0 mg/dl (70-99(Fasting)); Magnesium 1.8 mg/dl (1.7-2.4); Potassium 4.4 mmol/L (3.5-5.1); Sodium 140.0 mmol/L (136-145); Total Protein 6.0 gm/dl (6.0-8.3)
--- NOTE | 2025-05-27 08:38 | Surgery Progress Note ---
Date of Service May 27, 2025 Assessment & Plan (1) Intra-abdominal abscess: Plan: drain in place feels better taking po placement per medical team; would go home with drain Admission and Anticipated Discharge Date Admission Date: May 22, 2025 Subjective feels better drain bloody Review of Systems Constitutional: no fever and no chills Respiratory: no dyspnea Cardiovascular: no chest pain Gastrointestinal: + abdominal pain; no nausea and no vomit ing Neurologic: + generalized weakness Psychiatric: no behavioral changes Physical Exam Constitutional: WD/WN, vitals as above Respiratory: normal respiratory effort Cardiovascular: RRR, no murmur, no edema Gastrointestinal (Abdomen): Inspection/Auscultation: abdomen not distended Percussion/Palpation: + abdomen tender and abdomen soft Skin: no rashes, warm and dry Results & Data Vital Signs (Past 12 Hours) Vital Signs Temp Pulse Pulse Resp BP BP Pulse Ox 05/27/25 07:39 36.2 C L 68 17 128/79 97 05/27/25 05:42 66 05/27/25 02:36 38.3 C H 66 16 141/67 H 99 05/26/25 22:52 36.7 C 75 16 135/85 96 O2 Del Method O2 Flow Rate 05/27/25 07:39 Nasal Cannula 05/27/25 05:42 05/27/25 02:36 Nasal Cannula 2 05/26/25 22:52 Nasal Cannula 2
[2025-05-27] MEDS: LORazepam 0.5 MG TAB PO PRN (09:52)
--- NOTE | 2025-05-27 13:58 | Hospitalist Progress Note ---
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 #Sepsis #Intra abdominal abscess --CT a/p: There is a large necrotic peritoneal mass in the right lower quadrant which appears contiguous with a large thick walled and peripherally enhancing collection. The collection extends from the right hemidiaphragm to the right lower quadrant, and the stability of this fluid cannot be assessed by imaging. A large abscess is not excluded. It is unclear if this large necrotic mass communi cates with the loops of adjacent bowel. -sepsis criteria 2/2 leukocytosis, tachycardia with evidence of likely intraabdominal abscess in setting of worsening abd pain -IR drain placed on 05/25/2025, draining bloody like drainage Plan: -hold anticoagulation at this time, SCDs only -continue broad spectrum abx at this time, will do 7 day course (03/14) #Metastatic Gastric Adenocarcinoma s/p neoadjuvant chemo, s/p gastrectomy/lymph node dissection 10/01 currently receiving paclitaxel #Metastasis to intrabdominal lymph nodes and peritoneal carcinomatosis #Worsening Hepatic Metastatic Disease #Large R transverse colon mass s/p bx + neuroendocrine origin ? new primary -Follows Dr. Candelaria locally -Had 2nd opinion at [facility] Dr. Alba -last tx 05/15, currently on Paclitaxel -Of note pt did not receive any recent GSF treatments --CT a/p There is postsurgical change from distal gastrectomy with gastrojejunostomy. No bowel obstruction is seen.2. Again seen is evidence of extensive intra-abdominal metastatic disease with lymphadenopathy, hepatic metastases, and peritoneal carcinomatosis. There has been a mixed response to treatment as compared to 05/22/2025, with overall decreased attenuation of the lesions. This likely represents at least some treatment response. -established with palliative care outpatient -given diffuse metastatic peritoneal disease, declining functional status ECOG 2 sliding to 3 at this time and sarcopenia, prognosis likely on scale of weeks to months -see advanced care planning note for details, will sign on with hospice at discharge Plan: -discussed with Dr. Candelaria who agrees with discussion of GOC -list of hospice agencies has been provided to -have chosen [facility], aiming for discharge home Wednesday #Cancer Related Pain #Neuropathic Pain -patient has significant neuropathic and nociceptive pain throughout abdomen 2/2 diffuse peritoneal metastasis -improved with meds yesterday but still in quite a bit of pain -yesterday used: dilaudid 5mg PO x4, dilaudid 1mg IV x1, dilaudid 0.5 mg x1 Plan: -increased pain regiment as below: -continue methadone 2.5mg tid, started on 05/24/2025 -pending PO/IV pain needs may increase tomorrow -continue 5mg PO dilaudid q3hr prn -continue breakthrough dilaudid 1.5mg q3hr prn -increase pregablin to 100 tid -continue 4mg decadron daily for capsular pain #Agitation #Severe Anxiety -patient having some agitation #Hx of DVT/R jugular thrombus 07/2024 -holding eliquis for now #Acute urinary retention -resolved I spent a total of 45 minutes in direct patient care, including [id number] time with the patient and/or family, reviewing medical records, ordering and reviewing diagnostic tests, and coordinating care with other healthcare providers. This time includes: history taking, physical examination, medical decision making, counseling, ECG interpretation, imaging interpretation, lab in terpretation, orders, and education, excluding time spent in the performance of separately billed services. Admission and Anticipated Discharge Date Admission Date: May 22, 2025 Subjective Patient seen and examined at bedside. Patient feeling better today, pain controlled. Discussed going home with hospice services hopefully Wednesday. Review of Systems Review of Systems: CONSTITUTIONAL: comfortable, intermittantly confused EYES: Patient denies any visual symptoms. EARS, NOSE, AND THROAT: No difficulties with hearing. No symptoms of rhinitis or sore throat. CARDIOVASCULAR: Patient denies chest pains, palpitations, orthopnea and paroxysmal nocturnal dyspnea. RESPIRATORY: No dyspnea on exertion, no wheezing or cough. GI: No nausea, vomiting, diarrhea, constipation, abdominal pain, hematochezia or melena. : No urinary hesitancy or dribbling. No nocturia or urinary frequency. No abnormal urethral discharge. MUSCULOSKELETAL: No myalgias or arthralgias. NEUROLOGIC: No chronic headaches, no seizures. Patient denies numbness, tingling or weakness. PSYCHIATRIC: Patient denies problems with mood disturbance. No problems with a nxiety. ENDOCRINE: No excessive urination or excessive thirst. DERMATOLOGIC: Patient denies any rashes or skin changes. Physical Exam Physical Exam: Gen: A&O 2-3 NAD, sarcopenia noted HEENT: NCAT, EOMI, not icteric. External ears normal. No rhinorrhea. Moist mucous membranes. Neck: Supple, full range of motion, no observable masses, No meningeal sign. Lungs: No Respiratory distress. CV: RRR Abdomen: diffuse abdominal pain and tenderness to palpation much improved from prior MSK: No joint swelling, no redness. Drain placed, wound site appears stable Skin: No rashes, petechiae, lesions. Normal color per patient. Neuro: Normal Gait, Grossly intact. Psych: Appropriate for situation. Results & Data Results & Data Vital Signs (Past 12 Hours) Vital Signs Temp Pulse Pulse Resp BP BP Pulse Ox 05/27/25 11:04 36.8 C 84 20 127/82 91 05/27/25 07:39 36.2 C L 68 17 128/79 97 05/27/25 05:42 66 05/27/25 02:36 38.3 C H 66 16 141/67 H 99 O2 Del Method O2 Flow Rate 05/27/25 11:04 Room Air 05/27/25 07:39 Nasal Cannula 05/27/25 05:42 05/27/25 02:36 Nasal Cannula 2 Laboratory Results -personally reviewed, leukocytosis downtrending, creatinine stable Medications Administered Dexamethasone (Dexamethasone 4 Mg Tab) 4 mg PO DAILY [facility] Stop: 06/23/25 14:49 Last Admin: 05/27/25 09:52 Dose: 4 mg Documented By: Admin: 05/26/25 08:53 Dose: 4 mg Documented By: Admin: 05/25/25 08:46 Dose: 4 mg Documented By: Admin: 05/24/25 16:50 Dose: 4 mg Documented By: ES Hydromorphone HCl (Hydromorphone Inj 2 Mg/Ml Syr/Vial) 1.5 mg IV Q3H PRN PRN Reason: Breakthrough Pain Stop: 06/06/25 11:06 Last Admin: 05/26/25 08:52 Dose: 1.5 mg Documented By: Admin: 05/25/25 06:33 Dose: 1.5 mg Documented By: Admin: 05/24/25 16:50 Dose: 1.5 mg Documented By: Admin: 05/24/25 08:41 Dose: 1.5 mg Documented By: ES Hydromorphone HCl (Hydromorphone Hcl 2 Mg Tab) 5 mg PO Q3HWA PRN PRN Reason: Severe Pain (Scale 7, 8, 9,10) Stop: 06/06/25 11:07 Last Admin: 05/27/25 02:28 Dose: 5 mg Documented By: Admin: 05/26/25 06:04 Dose: 5 mg Documented By: Admin: 05/26/25 00:28 Dose: 5 mg Documented By: Admin: 05/25/25 14:44 Dose: 5 mg Documented By: Admin: 05/25/25 14:37 Dose: 5 mg Documented By: Admin: 05/25/25 04:43 Dose: 5 mg Documented By: Admin: 05/24/25 21:36 Dose: 5 mg Documented By: Admin: 05/24/25 13:02 Dose: 5 mg Documented By: Admin: 05/24/25 06:53 Dose: 5 mg Documented By: Admin: 05/23/25 22:49 Dose: 5 mg Documented By: Admin: 05/23/25 17:35 Dose: 5 mg Documented By: Admin: 05/23/25 11:13 Dose: 5 mg Documented By: PK Piperacillin Sod/Tazobactam Sod (Zosyn) 4.5 gm in 100 mls @ 25 mls/hr IV Q8H MICHAELLE; Protocol Stop: 06/01/25 17:59 Last Admin: 05/27/25 12:25 Dose: 25 mls/hr Documented By: Infusion: 05/27/25 05:06 Dose: Infused Documented By: Admin: 05/27/25 01:14 Dose: 25 mls/hr Documented By: Infusion: 05/26/25 22:00 Dose: Infused Documented By: Admin: 05/26/25 18:06 Dose: 25 mls/hr Documented By: Infusion: 05/26/25 14:38 Dose: Infused Documented By: Admin: 05/26/25 10:31 Dose: 25 mls/hr Documented By: Infusion: 05/26/25 05:30 Dose: Infused Documented By: Admin: 05/26/25 01:26 Dose: 25 mls/hr Documented By: Infusion: 05/25/25 20:53 Dose: Infused Documented By: Admin: 05/25/25 17:08 Dose: 25 mls/hr Documented By: Infusion: 05/25/25 15:54 Dose: Infused Documented By: Admin: 05/25/25 12:11 Dose: 25 mls/hr Documented By: Infusion: 05/25/25 08:35 Dose: Infused Documented By: Admin: 05/25/25 04:39 Dose: 25 mls/hr Documented By: Infusion: 05/24/25 21:29 Dose: Infused Documented By: Admin: 05/24/25 16:54 Dose: 25 mls/hr Documented By: Infusion: 05/24/25 12:07 Dose: Infused Documented By: Admin: 05/24/25 08:48 Dose: 25 mls/hr Documented By: Infusion: 05/24/25 05:51 Dose: Infused Documented By: Admin: 05/24/25 01:51 Dose: 25 mls/hr Documented By: Infusion: 05/23/25 21:15 Dose: Infused Documented By: Admin: 05/23/25 17:35 Dose: 25 mls/hr Documented By: Infusion: 05/23/25 14:41 Dose: Infused Documented By: Admin: 05/23/25 10:12 Dose: 25 mls/hr Documented By: Infusion: 05/23/25 05:43 Dose: Infused Documented By: Admin: 05/23/25 01:49 Dose: 25 mls/hr Documented By: Infusion: 05/22/25 23:38 Dose: Infused Documented By: Admin: 05/22/25 19:38 Dose: 25 mls/hr Documented By: SHIRA Vancomycin HCl (Vancomycin Hcl) 1,000 mg in 270 mls @ 200 mls/hr IV Q12H MICHAELLE Stop: 06/02/25 07:59 Last Infusion: 05/27/25 11:02 Dose: Infused Documented By: Admin: 05/27/25 09:33 Dose: 200 mls/hr Documented By: Infusion: 05/26/25 22:00 Dose: Infused Documented By: Admin: 05/26/25 20:07 Dose: 200 mls/hr Documented By: Infusion: 05/26/25 10:21 Dose: Infused Documented By: Admin: 05/26/25 08:52 Dose: 200 mls/hr Documented By: Infusion: 05/25/25 22:08 Dose: Infused Documented By: Admin: 05/25/25 20:17 Dose: 200 mls/hr Documented By: Infusion: 05/25/25 10:26 Dose: Infused Documented By: Admin: 05/25/25 08:50 Dose: 200 mls/hr Documented By: Infusion: 05/24/25 22:44 Dose: Infused Documented By: Admin: 05/24/25 21:23 Dose: 200 mls/hr Documented By: Infusion: 05/24/25 09:58 Dose: Infused Documented By: Admin: 05/24/25 08:41 Dose: 200 mls/hr Documented By: ES Lorazepam (Lorazepam 0.5 Mg Tab) 0.5 mg PO Q6 PRN PRN Reason: Anxiety Stop: 06/26/25 09:33 Last Admin: 05/27/25 09:52 Dose: 0.5 mg Documented By: AMB Melatonin (Melatonin 3 Mg Tab) 3 mg PO HS PRN PRN Reason: Sleep Stop: 06/21/25 20:59 Last Admin: 05/26/25 20:16 Dose: 3 mg Documented By: Admin: 05/26/25 00:28 Dose: 3 mg Documented By: JANE Methadone HCl (Methadone Hcl 5 Mg Tab) 2.5 mg PO TID MICHAELLE Stop: 06/07/25 13:59 Last Admin: 05/27/25 09:16 Dose: 2.5 mg Documented By: Admin: 05/26/25 20:16 Dose: 2.5 mg Documented By: Admin: 05/26/25 14:38 Dose: 2.5 mg Documented By: Admin: 05/26/25 08:52 Dose: 2.5 mg Documented By: Admin: 05/25/25 20:28 Dose: 2.5 mg Documented By: Admin: 05/25/25 14:42 Dose: Not Given Documented By: Admin: 05/25/25 08:45 Dose: 2.5 mg Documented By: Admin: 05/24/25 21:34 Dose: 2.5 mg Documented By: Admin: 05/24/25 14:26 Dose: 2.5 mg Documented By: OSMANI Pantoprazole Sodium (Pantoprazole 40 Mg Tab) 40 mg PO BID MICHAELLE Stop: 06/21/25 20:59 Last Admin: 05/27/25 09:17 Dose: 40 mg Documented By: Admin: 05/26/25 20:10 Dose: 40 mg Documented By: Admin: 05/26/25 08:53 Dose: 40 mg Documented By: Admin: 05/25/25 20:22 Dose: 40 mg Documented By: Admin: 05/25/25 08:45 Dose: 40 mg Documented By: Admin: 05/24/25 21:34 Dose: 40 mg Documented By: SJValerio Admin: 05/24/25 08:42 Dose: 40 mg Documented By: Admin: 05/23/25 20:20 Dose: 40 mg Documented By: Admin: 05/23/25 08:10 Dose: 40 mg Documented By: Admin: 05/22/25 19:38 Dose: 40 mg Documented By: SHIRA Polyethylene Glycol (Polyethylene (Miralax) 17 Gm Pack) 17 gm PO DAILY MICHAELLE Stop: 06/22/25 08:59 Last Admin: 05/27/25 09:16 Dose: 17 gm Documented By: Admin: 05/26/25 09:26 Dose: 17 gm Documented By: Admin: 05/25/25 08:46 Dose: Not Given Documented By: Admin: 05/24/25 08:42 Dose: 17 gm Documented By: Admin: 05/23/25 08:10 Dose: 17 gm Documented By: PK Pregabalin (Pregabalin 100 Mg Cap) 100 mg PO TID MICHAELLE Stop: 06/25/25 20:59 Last Admin: 05/27/25 09:16 Dose: 100 mg Documented By: Admin: 05/26/25 20:16 Dose: 100 mg Documented By: JANE
[2025-05-28 04:42] LABS: Hematocrit (blood only) 24.9 % (37.0-47.0); Hemoglobin 7.7 g/dl (12.0-16.0); Mean Corpuscular Hemoglobin 27.4 pg (25.0-34.0); Mean Corpuscular Volume 88.6 fL (80.0-100.0); Platelet Count 199 K/uL (130-400); RDW Standard Deviation 48.2 fL (36.4-46.3); Red Blood Count 2.81 M/uL (4.20-5.40); White Blood Count 11.29 K/ul (4.8-10.8)
[2025-05-28 04:58] LABS: Alanine Aminotransferase 26.0 U/L (7-52); Albumin Globulin Ratio 0.6 (0.9-2); Alkaline Phosphatase 103.0 U/L (34-104); Anion Gap 6.0 (3-11); Bilirubin,Total 0.4 mg/dl (0.2-1.0); Blood Urea Nitrogen 18.0 mg/dl (6-23); Calcium 7.4 mg/dl (8.6-10.3); Carbon Dioxide 28.0 mmol/L (21-32); Chloride 108.0 mmol/L (98-107); Creatinine Clr Calc Pharmacy 84.3 ml/min; Globulin 3.5 gm/dl (2.5-4.0); Glucose 93.0 mg/dl (70-99(Fasting)); Magnesium 1.7 mg/dl (1.7-2.4); Potassium 4.1 mmol/L (3.5-5.1); Sodium 142.0 mmol/L (136-145); Total Protein 5.6 gm/dl (6.0-8.3)
[2025-05-28] MEDS: CALCIUM GLUCONATE 1,000 MG/60 ML BAG IV STA (08:16)
--- NOTE | 2025-05-28 09:04 | Pharmacy Report ---
Pharmacy PK ABX Note - Date of Service May 28, 2025 - Assessment and Plan Assessment 05/28: * Reviewed vancomycin level, predicting therapeutic AUC/JEREMY, continue current vancomycin regimen. 05/25 * s/p IR drainage of intra-abdominal abscess today * Random vancomycin level obtained 05/25 at 1400 results at 19 mcg/mL with predicted AUC/JEREMY of 435 at steady state. This regimen should be sufficient, especially given potential source control with IR drainage. If Scr trends down further, may need to reassess dose. 05/24 * Random vancomycin level this morning resulted at 17 mcg/mL. Current AUC/JEREMY is within goal of 400-600, however current regimen is predicted to exceed 600 in the next 24 hours. Will reduce vancomycin dose. * Renal function is stable. IR guided drainage of possible abscess planned for tomorrow. 05/23 * Random vancomycin level this morning was 8.9mcg/mL. Renal function improved; SCr today =0.82 so started maintenance dose of vancomycin this morning. * Preliminary blood cultures are NGTD and MRSA nasal swab is negative. * Patient with continued leukocytosis and has been afebrile 05/22: * 59 year old F receiving pip/tazo and vancomcyin for treatment of possible large GI abscess. 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 Current SCr elevated from baseline at 1.28 mg/dL - eCrCL <= 55 mL/min. Will dose vancomycin via level for now Plan Vancomycin * Continue 1000mg IV q12 hours * Target AUC/JEREMY of 400-600 mg/L.hr * predicted steady state AUC/JEREMY = 505 Zosyn 4.5gm iv q 8 hours Pharmacy will continue to follow and will adjust dose/frequency as necessary. Thank you.
--- NOTE | 2025-05-28 09:31 | Surgery Progress Note ---
Date of Service May 28, 2025 Assessment & Plan (1) Intra-abdominal abscess: Plan: Keep drain in place upon discharge Nothing surgical to offer Surgical sign off at this time, please call with any questions or concerns (2) Peritoneal abscess: (3) Gastric adenocarcinoma: Admission and Anticipated Discharge Date Admission Date: May 22, 2025 Subjective Patient seen and examined. No acute events overnight. Pain controlled. Review of Systems Constitutional: no fever and no chills Respiratory: no cough and no dyspnea Cardiovascular: no chest pain and no dyspnea on exertion Gastrointestinal: no abdominal pain, no nausea and no vomiting Genitourinary: no dysuria and no urinary urgency Hematologic / Lymphatic: no easy bleeding and no easy bruising Physical Exam Constitutional: WD/WN, vitals as above Respiratory: normal respiratory effort, lungs clear to auscultation Cardiovascular: RRR, no murmur, no edema Gastrointestinal (Abdomen): Inspection/Auscultation: abdomen normal to inspection; abdomen not distended Percussion/Palpation: abdomen soft; abdomen nontender, no guarding and no hernia Drain in place with serosanguineous fluid Results & Data Vital Signs (Past 12 Hours) Vital Signs Temp Pulse Pulse Resp BP BP Pulse Ox 05/28/25 07:18 36.6 C 67 22 146/90 H 93 05/28/25 03:09 36.6 C 61 17 139/72 95 05/27/25 23:26 63 05/27/25 23:05 36.6 C 63 17 133/83 97 O2 Del Method O2 Flow Rate 05/28/25 07:18 Nasal Cannula 05/28/25 03:09 Nasal Cannula 2 05/27/25 23:26 05/27/25 23:05 Nasal Cannula 2 PG Care Time/CCT Total # of Minutes Spent Total Time Spent with Patient: Total time spent is greater than 50% in coordination of care (as documented) at patient's floor/unit and/or counseling patient: Coding Level of Care Code 89315 SUB INP/OBS CARE 12/02MIN Diagnoses Intra-abdominal abscess K65.1 Peritoneal abscess K65.1 Gastric adenocarcinoma C16.9
--- NOTE | 2025-05-28 13:47 | Hospitalist Progress Note ---
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 #Sepsis, resolved #Intra abdominal abscess -IR drain placed on 05/25/2025, draining bloody like drainage -wound culture growing gram negative bacilli -completed 6 day course of vancomcyin Plan: -hold anticoagulation at this time, SCDs only -stop vancomcyin (given gram negative bacilli in drain culture), will do 7 day course of zosyn (04/14) #Metastatic Gastric Adenocarcinoma s/p neoadjuvant chemo, s/p gastrectomy/lymph node dissection 10/01 currently receiving paclitaxel #Metastasis to intrabdominal lymph nodes and peritoneal carcinomatosis #Worsening Hepatic Metastatic Disease #Large R transverse colon mass s/p bx + neuroendocrine origin ? new primary -Follows Dr. Candelaria locally -Had 2nd opinion at [facility] Dr. Alba -last tx 05/15, currently on Paclitaxel -Of note pt did not receive any recent GSF treatments --CT a/p There is postsurgical change from distal gastrectomy with gastrojejunostomy. No bowel obstruction is seen.2. Again seen is evidence of extensive intra-abdominal metastatic disease with lymphadenopathy, hepatic metastases, and peritoneal carcinomatosis. There has been a mixed response to treatment as compared to 05/22/2025, with overall decreased attenuation of the lesions. This likely represents at least some treatment response. -established with palliative care outpatient -given diffuse metastatic peritoneal disease, declining functional status ECOG 3 sliding to 4 at this time and sarcopenia, prognosis likely on scale of weeks to months -see advanced care planning note for details, will sign on with hospice at discharge Plan: -discussed with Dr. Candelaria who agrees with discussion of GOC -list of hospice agencies has been provided to -[facility], aiming for discharge home Wednesday #Cancer Related Pain #Neuropathic Pain -patient has significant neuropathic and nociceptive pain throughout abdomen 2/2 diffuse peritoneal metastasis -pain now sufficiently controlled Plan: -pain regiment as below: -continue methadone 2.5mg tid, started on 05/24/2025 -continue 5mg PO dilaudid q3hr prn -continue breakthrough dilaudid 1.5mg q3hr prn -continue pregablin to 100 tid -continue 4mg decadron daily for capsular pain #Agitation #Severe Anxiety -patient having some agitation and anxiety intermittantly -responded well to ativan Plan: -contiue ativan PO 0.5mg prn #Hx of DVT/R jugular thrombus 07/2024 -holding eliquis for now #Acute urinary retention -resolved I spent a total of 45 minutes in direct patient care, including [id number] time with the patient and/or family, reviewing medical records, ordering and reviewing diagnostic tests, and coordinating care with other healthcare providers. This time includes: history taking, physical examination, medical decision making, counseling, ECG interpretation, imaging interpretation, lab interpretation, orders, and education, excluding time spent in the performance of separately billed services. Admission and Anticipated Discharge Date Admission Date: May 22, 2025 Subjective Patient seen and examined at bedside. Patient doing well today, quite comfortable. Review of Systems Review of Systems: CONSTITUTIONAL: comfortable, intermittantly confused EYES: Patient denies any visual symptoms. EARS, NOSE, AND THROAT: No difficulties with hearing. No symptoms of rhinitis or sore throat. CARDIOVASCULAR: Patient denies chest pains, palpitations, orthopnea and paroxysmal nocturnal dyspnea. RESPIRATORY: No dyspnea on exertion, no wheezing or cough. GI: No nausea, vomiting, diarrhea, constipation, abdominal pain, hematochezia or melena. : No urinary hesitancy or dribbling. No nocturia or urinary frequency. No abn ormal urethral discharge. MUSCULOSKELETAL: No myalgias or arthralgias. NEUROLOGIC: No chronic headaches, no seizures. Patient denies numbness, tingling or weakness. PSYCHIATRIC: Patient denies problems with mood disturbance. No problems with anxiety. ENDOCRINE: No excessive urination or excessive thirst. DERMATOLOGIC: Patient denies any rashes or skin changes. Physical Exam Physical Exam: Gen: A&O 2-3 NAD, sarcopenia noted HEENT: NCAT, EOMI, not icteric. External ears normal. No rhinorrhea. Moist mucous membranes. Neck: Supple, full range of motion, no observable masses, No meningeal sign. Lungs: No Respiratory distress. CV: RRR Abdomen: much improved abdominal pain MSK: No joint swelling, no redness. Drain placed, wound site appears stable Skin: No rashes, petechiae, lesions. Normal color per patient. Neuro: Normal Gait, Grossly intact. Psych: Appropriate for situation. Results & Data Results & Data Vital Signs (Past 12 Hours) Vital Signs Temp Pulse Resp BP BP Pulse Ox O2 Del Method 05/28/25 12:00 36.3 C L 84 20 127/83 91 Room Air 05/28/25 07:18 36.6 C 67 22 146/90 H 93 Nasal Cannula 05/28/25 03:09 36.6 C 61 17 139/72 95 Nasal Cannula O2 Flow Rate 05/28/25 12:00 05/28/25 07:18 05/28/25 03:09 2 Laboratory Results -personally reviewed, downtrending leukocytosis, stable creatinine, low calcium 7.4 replenished Medications Administered Dexamethasone (Dexamethasone 4 Mg Tab) 4 mg PO DAILY MICHAELLE Stop: 06/23/25 14:49 Last Admin: 05/28/25 08:17 Dose: 4 mg Documented By: Admin: 05/27/25 09:52 Dose: 4 mg Documented By: Admin: 05/26/25 08:53 Dose: 4 mg Documented By: Admin: 05/25/25 08:46 Dose: 4 mg Documented By: Admin: 05/24/25 16:50 Dose: 4 mg Documented By: OSMANI Hydromorphone HCl (Hydromorphone Inj 2 Mg/Ml Syr/Vial) 1.5 mg IV Q3H PRN PRN Reason: Breakthrough Pain Stop: 06/06/25 11:06 Last Admin: 05/27/25 17:30 Dose: 1.5 mg Documented By: Admin: 05/26/25 08:52 Dose: 1.5 mg Documented By: Admin: 05/25/25 06:33 Dose: 1.5 mg Documented By: Admin: 05/24/25 16:50 Dose: 1.5 mg Documented By: Admin: 05/24/25 08:41 Dose: 1.5 mg Documented By: OSMANI Hydromorphone HCl (Hydromorphone Hcl 2 Mg Tab) 5 mg PO Q3HWA PRN PRN Reason: Severe Pain (Scale 7, 8, 9,10) Stop: 06/06/25 11:07 Last Admin: 05/28/25 01:47 Dose: 5 mg Documented By: Admin: 05/27/25 02:28 Dose: 5 mg Documented By: Admin: 05/26/25 06:04 Dose: 5 mg Documented By: Admin: 05/26/25 00:28 Dose: 5 mg Documented By: Admin: 05/25/25 14:44 Dose: 5 mg Documented By: Admin: 05/25/25 14:37 Dose: 5 mg Documented By: Admin: 05/25/25 04:43 Dose: 5 mg Documented By: Admin: 05/24/25 21:36 Dose: 5 mg Documented By: Admin: 05/24/25 13:02 Dose: 5 mg Documented By: Admin: 05/24/25 06:53 Dose: 5 mg Documented By: Admin: 05/23/25 22:49 Dose: 5 mg Documented By: Admin: 05/23/25 17:35 Dose: 5 mg Documented By: Admin: 05/23/25 11:13 Dose: 5 mg Documented By: PK Piperacillin Sod/Tazobactam Sod (Zosyn) 4.5 gm in 100 mls @ 25 mls/hr IV Q8H MICHAELLE; Protocol Stop: 06/01/25 17:59 Last Admin: 05/28/25 10:06 Dose: 25 mls/hr Documented By: Infusion: 05/28/25 06:08 Dose: Infused Documented By: Admin: 05/28/25 01:39 Dose: 25 mls/hr Documented By: Infusion: 05/27/25 21:40 Dose: Infused Documented By: Admin: 05/27/25 17:31 Dose: 25 mls/hr Documented By: Infusion: 05/27/25 17:20 Dose: Infused Documented By: Admin: 05/27/25 12:25 Dose: 25 mls/hr Documented By: Infusion: 05/27/25 05:06 Dose: Infused Documented By: Admin: 05/27/25 01:14 Dose: 25 mls/hr Documented By: Infusion: 05/26/25 22:00 Dose: Infused Documented By: Admin: 05/26/25 18:06 Dose: 25 mls/hr Documented By: Infusion: 05/26/25 14:38 Dose: Infused Documented By: Admin: 05/26/25 10:31 Dose: 25 mls/hr Documented By: Infusion: 05/26/25 05:30 Dose: Infused Documented By: Admin: 05/26/25 01:26 Dose: 25 mls/hr Documented By: Infusion: 05/25/25 20:53 Dose: Infused Documented By: Admin: 05/25/25 17:08 Dose: 25 mls/hr Documented By: Infusion: 05/25/25 15:54 Dose: Infused Documented By: Admin: 05/25/25 12:11 Dose: 25 mls/hr Documented By: Infusion: 05/25/25 08:35 Dose: Infused Documented By: Admin: 05/25/25 04:39 Dose: 25 mls/hr Documented By: Infusion: 05/24/25 21:29 Dose: Infused Documented By: Admin: 05/24/25 16:54 Dose: 25 mls/hr Documented By: Infusion: 05/24/25 12:07 Dose: Infused Documented By: Admin: 05/24/25 08:48 Dose: 25 mls/hr Documented By: Infusion: 05/24/25 05:51 Dose: Infused Documented By: Admin: 05/24/25 01:51 Dose: 25 mls/hr Documented By: Infusion: 05/23/25 21:15 Dose: Infused Documented By: Admin: 05/23/25 17:35 Dose: 25 mls/hr Documented By: Infusion: 05/23/25 14:41 Dose: Infused Documented By: Admin: 05/23/25 10:12 Dose: 25 mls/hr Documented By: Infusion: 05/23/25 05:43 Dose: Infused Documented By: Admin: 05/23/25 01:49 Dose: 25 mls/hr Documented By: Infusion: 05/22/25 23:38 Dose: Infused Documented By: Admin: 05/22/25 19:38 Dose: 25 mls/hr Documented By: SHIRA Vancomycin HCl (Vancomycin Hcl) 1,000 mg in 270 mls @ 200 mls/hr IV Q12H MICHAELLE Stop: 06/02/25 07:59 Last Infusion: 05/28/25 10:07 Dose: Infused Documented By: Admin: 05/28/25 08:38 Dose: 200 mls/hr Documented By: Infusion: 05/27/25 21:00 Dose: Infused Documented By: Admin: 05/27/25 19:16 Dose: 200 mls/hr Documented By: Infusion: 05/27/25 11:02 Dose: Infused Documented By: Admin: 05/27/25 09:33 Dose: 200 mls/hr Documented By: Infusion: 05/26/25 22:00 Dose: Infused Documented By: Admin: 05/26/25 20:07 Dose: 200 mls/hr Documented By: Infusion: 05/26/25 10:21 Dose: Infused Documented By: Admin: 05/26/25 08:52 Dose: 200 mls/hr Documented By: Infusion: 05/25/25 22:08 Dose: Infused Documented By: Admin: 05/25/25 20:17 Dose: 200 mls/hr Documented By: Infusion: 05/25/25 10:26 Dose: Infused Documented By: Admin: 05/25/25 08:50 Dose: 200 mls/hr Documented By: Infusion: 05/24/25 22:44 Dose: Infused Documented By: Admin: 05/24/25 21:23 Dose: 200 mls/hr Documented By: Infusion: 05/24/25 09:58 Dose: Infused Documented By: Admin: 05/24/25 08:41 Dose: 200 mls/hr Documented By: ES Lorazepam (Lorazepam 0.5 Mg Tab) 0.5 mg PO Q6 PRN PRN Reason: Anxiety Stop: 06/26/25 09:33 Last Admin: 05/28/25 05:50 Dose: 0.5 mg Documented By: Admin: 05/27/25 09:52 Dose: 0.5 mg Documented By: AMB Melatonin (Melatonin 3 Mg Tab) 3 mg PO HS PRN PRN Reason: Sleep Stop: 06/21/25 20:59 Last Admin: 05/26/25 20:16 Dose: 3 mg Documented By: Admin: 05/26/25 00:28 Dose: 3 mg Documented By: JANE Methadone HCl (Methadone Hcl 5 Mg Tab) 2.5 mg PO TID MICHAELLE Stop: 06/07/25 13:59 Last Admin: 05/28/25 08:15 Dose: 2.5 mg Documented By: Admin: 05/27/25 20:39 Dose: 2.5 mg Documented By: Admin: 05/27/25 14:09 Dose: 2.5 mg Documented By: Admin: 05/27/25 09:16 Dose: 2.5 mg Documented By: Admin: 05/26/25 20:16 Dose: 2.5 mg Documented By: Admin: 05/26/25 14:38 Dose: 2.5 mg Documented By: Admin: 05/26/25 08:52 Dose: 2.5 mg Documented By: Admin: 05/25/25 20:28 Dose: 2.5 mg Documented By: Admin: 05/25/25 14:42 Dose: Not Given Documented By: Admin: 05/25/25 08:45 Dose: 2.5 mg Documented By: Admin: 05/24/25 21:34 Dose: 2.5 mg Documented By: Admin: 05/24/25 14:26 Dose: 2.5 mg Documented By: OSMANI Pantoprazole Sodium (Pantoprazole 40 Mg Tab) 40 mg PO BID MICHAELLE Stop: 06/21/25 20:59 Last Admin: 05/28/25 08:17 Dose: 40 mg Documented By: Admin: 05/27/25 20:40 Dose: 40 mg Documented By: Admin: 05/27/25 09:17 Dose: 40 mg Documented By: Admin: 05/26/25 20:10 Dose: 40 mg Documented By: Admin: 05/26/25 08:53 Dose: 40 mg Documented By: Admin: 05/25/25 20:22 Dose: 40 mg Documented By: Admin: 05/25/25 08:45 Dose: 40 mg Documented By: Admin: 05/24/25 21:34 Dose: 40 mg Documented By: Admin: 05/24/25 08:42 Dose: 40 mg Documented By: Admin: 05/23/25 20:20 Dose: 40 mg Documented By: Admin: 05/23/25 08:10 Dose: 40 mg Documented By: Admin: 05/22/25 19:38 Dose: 40 mg Documented By: SHIRA Polyethylene Glycol (Polyethylene (Miralax) 17 Gm Pack) 17 gm PO DAILY MICHAELLE Stop: 06/22/25 08:59 Last Admin: 05/28/25 08:17 Dose: 17 gm Documented By: Admin: 05/27/25 09:16 Dose: 17 gm Documented By: Admin: 05/26/25 09:26 Dose: 17 gm Documented By: Admin: 05/25/25 08:46 Dose: Not Given Documented By: Admin: 05/24/25 08:42 Dose: 17 gm Documented By: Admin: 05/23/25 08:10 Dose: 17 gm Documented By: PK Pregabalin (Pregabalin 100 Mg Cap) 100 mg PO TID MICHAELLE Stop: 06/25/25 20:59 Last Admin: 05/28/25 08:15 Dose: 100 mg Documented By: Admin: 05/27/25 20:40 Dose: 100 mg Documented By: Admin: 05/27/25 14:09 Dose: 100 mg Documented By: Admin: 05/27/25 09:16 Dose: 100 mg Documented By: Admin: 05/26/25 20:16 Dose: 100 mg Documented By: JANE
[2025-05-29 06:22] LABS: Hematocrit (blood only) 27.0 % (37.0-47.0); Hemoglobin 8.4 g/dl (12.0-16.0); Mean Corpuscular Hemoglobin 27.8 pg (25.0-34.0); Mean Corpuscular Volume 89.4 fL (80.0-100.0); Platelet Count 195 K/uL (130-400); RDW Standard Deviation 48.7 fL (36.4-46.3); Red Blood Count 3.02 M/uL (4.20-5.40); White Blood Count 13.05 K/ul (4.8-10.8)
[2025-05-29 06:42] LABS: Alanine Aminotransferase 26.0 U/L (7-52); Albumin Globulin Ratio 0.7 (0.9-2); Alkaline Phosphatase 103.0 U/L (34-104); Anion Gap 5.0 (3-11); Bilirubin,Total 0.5 mg/dl (0.2-1.0); Blood Urea Nitrogen 15.0 mg/dl (6-23); Calcium 7.6 mg/dl (8.6-10.3); Carbon Dioxide 30.0 mmol/L (21-32); Chloride 105.0 mmol/L (98-107); Creatinine Clr Calc Pharmacy 98.2 ml/min; Globulin 3.3 gm/dl (2.5-4.0); Glucose 76.0 mg/dl (70-99(Fasting)); Magnesium 1.7 mg/dl (1.7-2.4); Potassium 4.3 mmol/L (3.5-5.1); Sodium 140.0 mmol/L (136-145); Total Protein 5.6 gm/dl (6.0-8.3)
[2025-05-29 07:22] VITALS: TEMP 97.5
[2025-05-29 10:54] VITALS: RESP 17; O2SAT 91
[2025-05-29 13:29] VITALS: BP 149/88; PULSE 93
--- NOTE | 2025-05-29 15:48 | Discharge Summary ---
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 #Sepsis, resolved #Intra abdominal abscess -IR drain placed on 05/25/2025, draining bloody like drainage -wound culture growing gram negative bacilli -completed 6 day course of vancomcyin, 7 day course of zosyn Plan: -hold anticoagulation at this time, SCDs only #Metastatic Gastric Adenocarcinoma s/p neoadjuvant chemo, s/p gastrectomy/lymph node dissection 10/01 currently receiving paclitaxel #Metastasis to intrabdominal lymph nodes and peritoneal carcinomatosis #Worsening Hepatic Metastatic Disease #Large R transverse colon mass s/p bx + neuroendocrine origin ? new primary -Follows Dr. Candelaria locally -Had 2nd opinion at [facility] Dr. Alba -last tx 05/15, currently on Paclitaxel -Of note pt did not receive any recent GSF treatments --CT a/p There is postsurgical change from distal gastrectomy with gastrojejunostomy. No bowel obstruction is seen.2. Again seen is evidence of extensive intra-abdominal metastatic disease with lymphadenopathy, hepatic metastases, and peritoneal carcinomatosis. There has been a mixed response to treatment as compared to 05/22/2025, with overall decreased attenuation of the lesions. This likely represents at least some treatment response. -established with palliative care outpatient -given diffuse metastatic peritoneal disease, declining functional status ECOG 3 sliding to 4 at this time and sarcopenia, prognosis likely on scale of weeks to months -see advanced care planning note for details, will sign on with hospice at discharge Plan: -discussed with Dr. Candelaria who agrees with discussion of GOC and hospice services -list of hospice agencies has been provided to -[facility], aiming for discharge home Wednesday #Cancer Related Pain #Neuropathic Pain -patient has significant neuropathic and nociceptive pain throughout abdomen 2/2 diffuse peritoneal metastasis -pain now sufficiently controlled Plan: -pain regiment as below: -continue methadone 2.5mg tid, started on 05/24/2025 -continue 5mg PO dilaudid q3hr prn -continue breakthrough dilaudid 1.5mg q3hr prn -continue pregablin to 100 tid -continue 4mg decadron daily for capsular pain #Agitation #Severe Anxiety -patient having some agitation and anxiety intermittantly -responded well to ativan Plan: -contiue ativan PO 0.5mg prn #Hx of DVT/R jugular thrombus 07/2024 -holding eliquis for now #Acute urinary retention -resolved Notes For Next Care Provider This is a 59-year-old female who has a significant past medical history of gastric adenocarcinoma status postgastrectomy and lymph node dissection on 09/2024, neuroendocrine tumor of transverse colon, 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 Admitted to medicine for sepsis, pain crisis, and intraabdominal abscesses. Stopped fentanyl patch, started methadone, stopped gabapentin, started and uptitrated lyrica, stopped oxycodone, start PO dilaudid. IR consulted, placed drain into necrotic abscess. GOC discussion with patient and family, chose to take a comfort focused approach given prognosis of weeks to months, discussed case with patient oncologist. On 05/29/2025 patient discharged home with home hospice services. 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 Patient presented to her hematology clinic today and was found to have a fever. Lab work was ordered which showed leukocytosis, KERRI and hyponatremia and she was referred to ED for further evaluation. Of significance patient initially completed neoadjuvant chemotherapy with modified FOLFOX 7 12/01 to 08/23/2024. She then underwent gastrectomy and lymph node dissection in September 2024. Pathological T3 N0 as all 19+3 lymph nodes were negative for metastatic disease. She then completed 6 cycles of 5 fluorouracil and during the first cycle she received half the dose of oxaliplatin but was discontinued due to worsening neuropathy symptoms. Recent CT scan as well as PET CT scan revealed a 2.4 cm soft tissue density involving the right proximal transverse colon which was suspicious for a serosal implant. Colonoscopy evaluation was unremarkable. She subsequently then had a biopsy of the serosal implant of the transverse colon which final pathology showed a carcinoma with neuroendocrine differentiation. Previous to specimens in her case with the gastric mass as well as gastrectomy specimen did not show any neuroendocrine differentiation, pathologic suggest this could be a new tumor. She was seen and evaluated at [facility] who recommended carboplatin etoposide in her case. She received her first cycle of this 04/16 to 04/18/2025. Right prior to this she started having increasing abdominal pain and went to [facility] ER. CT findings showed significant disease progression with enlarging necrotic lymph nodes, enlarging soft tissue tissue mass close of the transverse colon which initially was 4 cm, now 14 cm. Paclitaxel was also added to her regimen on 05/15 which is the last time she received chemotherapy.She presented to hematology clinic today for which she was found to have a fever. She also reports right sided abdominal pain in the shape of a, "C," that is been ongoing for the last 6 days. She states the pain has been so unbearable she has been using oxycodone at home with minimal relief. When she presented to clinic today she was found to have a fever of 100. She received outpatient lab work and was found to have leukocytosis, hyponatremia and KERRI and therefore was referred to ED. She states over the last 6 days she has had very minimal oral intake in form of liquid/food. She did have a hamburger and [employer] fries last evening for supper and it was the first meani ngful intake since last . She reports not urinating as much as she normally does and very minimal bowel movements. She also had nausea and 5 episodes of vomiting on , but no vomiting since. She denies any documented fevers at home, chills, sweats, chest pain, shortness breath, cough, URI symptoms, melena, hematochezia, dysuria, increased urinary frequency with urination. In ED patient met septic criteria. She had a leukocytosis of 23,000 and was tachycardic. She had a mild KERRI with BUN of 26 and creatinine of 1.28. Her LFTs were elevated with a total bilirubin 1.3, AST 180, ALT [address] abdomen pelvis reveal large necrotic peritoneal mass in the right lower quadrant which appears contiguous with a large thick-walled and peripherally enhancing collection. This collection extends from the right hemidiaphragm to right lower quadrant in which a large abscess cannot be excluded. Blood cultures were obtained. She was started on IV Zosyn. Surgical consultation was obtained in the ED and recommendation was admission and IR drainage. Patient is on Eliquis due to history of PE and her last dose was this morning. Early intervention for radiology will be on Wednesday. Discharge Exam Gen: A&O 2-3 NAD, sarcopenia noted HEENT: NCAT, EOMI, not icteric. External ears normal. No rhinorrhea. Moist mucous membranes. Neck: Supple, full range of motion, no observable masses, No meningeal sign. Lungs: No Respiratory distress. CV: RRR Abdomen: much improved abdominal pain MSK: No joint swelling, no redness. Drain placed, wound site appears stable Skin: No rashes, petechiae, lesions. Normal color per patient. Neuro: Normal Gait, Grossly intact. Psych: Appropriate for situation. Updated Medication List Medication Instructions Recorded Confirmed Type pantoprazole 40 mg tablet,delayed 40 mg PO BID 05/05/25 05/22/25 History release bisacodyl 10 mg rectal suppository 10 mg AR DAILY PRN constipation 05/29/25 Rx #12 ea dexamethasone 4 mg tablet 4 mg PO DAILY 14 days #14 tabs 05/29/25 Rx hydromorphone 2 mg tablet 5 mg (2.5 x 2 mg) PO Q3HWA PRN 05/29/25 Rx (Dilaudid) pain 1 day #20 tabs lorazepam 0.5 mg tablet 0.5 mg PO Q6 PRN agitation 1 day 05/29/25 Rx #5 tabs methadone 5 mg tablet 2.5 mg (1/2 x 5 mg) PO TID 1 day 05/29/25 Rx #2 tabs ondansetron 4 mg disintegrating 4 mg PO Q8H PRN nausea and 05/29/25 Rx tablet vomiting 4 days #14 tabs polyethylene glycol 3350 17 17 g PO DAILY constipation #476 05/29/25 Rx gram/dose oral powder (Miralax) grams pregabalin 100 mg capsule (Lyrica) 100 mg PO TID 7 days #21 caps 05/29/25 Rx Hospital Stay Data Consultations 05/22/25 12:25 ED Decision to Admit Stat 05/22/25 14:13 Consult General Surgery Routine Diagnostic Imagining Performed 05/22/25 09:20 CT Abd and Pelvis [CT abd pelvis IV con only] Stat 05/22/25 13:42 US venous doppler LE BI Stat 05/25/25 09:[address] periton/retro w/gdnce Stat 05/26/25 08:13 CT Abd and Pelvis [CT abd pelvis IV con only] Urgent Pending Results Patient Have Any Pending Studies at Discharge: No Discharge Instructions Given to Patient (Per Discharging Provider) 1. Discharging home with [facility]. Total Time Total Time Spent Total Time Spent (In Minutes): I spent a total of 35 minutes in direct patient care, including [id number] time with the patient and/or family, reviewing medical records, ordering and reviewing diagnostic tests, and coordinating care with other healthcare pr oviders. This time includes: history taking, physical examination, medical decision making, counseling, ECG interpretation, imaging interpretation, lab interpretation, orders, and education, excluding time spent in the performance of separately billed services.
== END 2025-05-29 15:26 | disposition hospice, home (50) | DRG 871 ==
LOC: ED 08:51 → SUATTDRO 13:51 → 2S 13:51